=== PATIENT | male | born 1980 | race Caucasian/White ===

== ENCOUNTER 2016-10-16 08:05 | Day surgery (SDC) | payer OTHER ==
[2016-10-09 08:45] VITALS: BMI 32.1
[2016-10-16 08:24] VITALS: RESP 16; TEMP 97.8
[2016-10-16] MEDS: LACTATED RINGERS 1,000 ML IV ONE ×2 (08:32→09:14)
[2016-10-16] MEDS ORDERED: ONDANSETRON 4 MG/2 ML VIAL IVP ONE (08:40)
[2016-10-16] MEDS ORDERED: TRIAMCINOLONE ACETONIDE 40 MG/ML 1 ML VIAL ONE (09:18)
[2016-10-16] MEDS ORDERED: MIDAZOLAM 2 MG/2 ML VIAL ONE (09:18)
[2016-10-16] MEDS ORDERED: fentaNYL (PF) 50 MCG/ML 2 ML AMP ONE (09:18)
[2016-10-16] MEDS ORDERED: IV FLUID CONTINUATION 1,000 ML IV ONE (09:46)
--- NOTE | 2016-10-16 09:54 | P.PCN ---
Date of Procedure: 10/16/16 Anesthesia: MAC Surgeon: Jovani Shoemaker Pathology: none sent Condition: stable Disposition: PACU Description of Procedure: PREOPERATIVE DIAGNOSIS: Lumbar spondylosis without myelopathy and facet arthropathy POSTOPERATIVE DIAGNOSIS: Lumbar spondylosis without myelopathy and facet arthropathy PROCEDURES: Left Radiofrequency thermocoagulation, L3, L4, and L5 medial branch , with fluoroscopic guidance. ANESTHESIA: 1% lidocaine plain; Conscious sedation with versed/fentanyl EBL: Minimal PROCEDURE INDICATION: The patient with low back pain secondary to lumbar arthropathy who had more than 50% relief of pain with previous diagnostic lumbar medial branch block with bupivacaine. Patient presents for left RFA today ; no use of blood thinners. PROCEDURE DESCRIPTION / TECHNIQUE: The patient was seen and identified in the preoperative area. Risks, benefits, complications, and alternatives were discussed with the patient (including but not limited to incomplete pain relief , bleeding, infection, nerve damage, and allergies to medications), the patient agreed to proceed with the procedure and signed the consent after all questions were answered. Patient was taken to the OR and time out was completed to verify proper patient , position, laterality of pain, and allergies. Pt was placed in the prone position. IV was started. Vital signs remained stable throughout the procedure. A pillow was placed under the patients chest to decrease lordosis. The lumbosacral area was prepped and draped in the usual sterile fashion. Vital signs were closely monitored during the procedure. Conscious sedation was used during the procedure to decrease patients anxiety. Using AP and then oblique fluoroscopy, the eye of the John dog corresponding to the connection between the superior and transverse articular processes of left L4, L5 and top of the sacrum were identified, marked, and localized with 1% lidocaine. Subsequently, a 20 gauge, 100-mm radiofrequency cannula with a 10-mm active tip was advanced guided by fluoroscopy to each of the eyes of the John dog at left L3, L4, and L5 medial branches. Each site then underwent sensory testing at 50 Hz and 0 to 1 volt and motor testing at 2 Hz and 0 to 3 volt with local stimulation, but no radicular symptoms down the legs. Thereafter the left L3, L4, and L5 medial branch sites underwent radiofrequency thermocoagulation at 80 degrees Celsius for 90 seconds after injecting 0.5 ml of PF lidocaine 1%. After thermocoagulation, 1 ml of the block solution containing Kenalog 40 mg and 2 mL of preservative-free normal saline was injected at the right L3, L4, and L5 medial branch levels after negative aspiration of CSF and blood and with no paresthesias. Cannulas were retracted while injecting lidocaine 1% until the needles were removed. At the end of the procedure, the skin was cleansed and bandages were applied. COMPLICATIONS: No acute complications. DISPOSITION / PLANS: The patient was placed in a supine position and transferred to the recovery area in a stable condition for observation and was discharged from the recovery room after meeting discharge criteria. Home discharge instructions given to the patient by the staff. The patient was reexamined prior to discharge. The patient will schedule a follow up as needed. Patient was given a prescription for oxycodone 5 mg #240 without refills ( which will last him several months) and baclofen 10 mg #90 with five refills.
[2016-10-16 10:17] VITALS: BP 104/69; PULSE 59
--- NOTE | 2016-10-16 10:53 | FL ---
EXAMINATION TYPE: FL guided pain mgmt statistic DATE OF EXAM: 10/16/2016 9:45 AM COMPARISON: NONE HISTORY: Back pain Fluoroscopy support supplied to the referring clinician. See dictated report from anesthesia, 6 seco nds fluoroscopy time, 3 intraoperative C-arm images document the procedure
[2016-10-16] MEDS ORDERED: LACTATED RINGERS 1,000 ML IV SCH (12:15)
== END 2016-10-16 10:26 | disposition home or self-care (01) ==
LOC: ORPAIN 08:05
PROVIDERS: ATTEND Anesthesiology
DX: M47.816 Spondylosis without myelopathy or radiculopathy, lumbar region (principal); M46.96 Unspecified inflammatory spondylopathy, lumbar region; M79.1 Myalgia; E03.9 Hypothyroidism, unspecified; Z79.890 Hormone replacement therapy; Z79.891 Long term (current) use of opiate analgesic; Z79.899 Other long term (current) drug therapy; Z88.6 Allergy status to analgesic agent; Z88.8 Allergy status to other drugs, medicaments and biological substances
CPT/HCPCS: 64635; 64636 ×2; J2250; J3301; J2405; J3010

== ENCOUNTER 2016-10-20 14:16 | Emergency (ER) | payer OTHER ==
[2016-10-20 14:34] VITALS: BP 139/82; PULSE 76; RESP 20; TEMP 98
--- NOTE | 2016-10-20 15:34 | ED ---
Lower Extremity Injury HPI - General Chief Complaint: Extremity Injury, Lower Stated Complaint: left knee injury Time Seen by Provider: 10/20/16 15:24 Source: family, RN notes reviewed Mode of arrival: ambulatory Limitations: no limitations - History of Present Illness Initial Comments: 36-year-old male presents emergency Department chief complaint of left knee pain. Patient states that he with that. As he admitted to move and his knee went out and he fell to the ground. Patient states he now feels like a catching in his knee. Patient states that if he can move the knee since he goes to bear weight he has increased pain. Patient states that he hasn't had any other injuries with this. Patient states he has no numbness or tingling. Patient states she's been using crutches to get around which have been helping. Patient states he tried again to his family care doctor but they were unable to see him so he came here for orthopedic referral.Patient denies any recent fever, chills, shortness of breath, chest pain, back pain, abdominal pain, nausea vomiting, numbness or tingling, dysuria or hematuria, constipation or diarrhea, headaches or visual changes, or any other current symptoms. - Related Data Home Medications Medication Instructions Recorded Confirmed Levothyroxine Sodium [Synthroid] 50 mcg PO QAM 03/30/14 10/16/16 Baclofen [Lioresal] 10 mg PO TID 10/15/15 10/16/16 Testosterone Cypionate 100 mg INJ Q7D 02/21/16 10/16/16 [Depo-Testosterone] oxyCODONE HCL [Oxyir] 10 mg PO Q6H PRN 10/16/16 10/16/16 Allergies Allergy/AdvReac Type Severity Reaction Status Date / Time duloxetine HCl AdvReac Severe severe Verified 10/20/16 14:34 [From Cymbalta] headache gabapentin [From Neurontin] AdvReac Rash/Hives Verified 10/20/16 14:34 Review of Systems ROS Statement: Those systems with pertinent positive or pertinent negative responses have been documented in the HPI. ROS Other: All systems not noted in ROS Statement are negative. Past Medical History Past Medical History: GERD/Reflux, Thyroid Disorder Additional Past Medical History / Comment(s): KIDNEY STONE,CHRONIC BACK PAIN History of Any Multi-Drug Resistant Organisms: None Reported Past Surgical History: Appendectomy, Cholecystectomy Additional Past Surgical History / Comment(s): PAIN PROCEDURES AT [facility] Past Anesthesia/Blood Transfusion Reactions: No Reported Reaction Additional Past Anesthesia/Blood Transfusion Reaction / Comment(s): STATES "NOVOCAINE DOESN'T WORK ON ME" Past Psychological History: No Psychological Hx Reported Smoking Status: Never smoker Past Alcohol Use History: None Reported Past Drug Use History: None Reported - Past Family History Mother Family Medical History: No Reported History Father Additional Family Medical History / Comment(s): SMOKER. General Exam - General Exam Comments Initial Comments: General: The patient is awake and alert, in no distress, and does not appear acutely ill. Neck: The neck is supple, there is no tenderness. Cardiovascular: There is a regular rate and rhythm. No murmur, rub or gallop is appreciated. Respiratory: Lungs are clear to auscultation, respirations are non-labored, breath sounds are equal. No wheezes, stridor, rales, or rhonchi. Musculoskeletal: Sensation intact with 2+ pulses of the left lower extremity. Full range of motion of left hip left knee and left ankle. Patient has no pain with special testing. There is no pain to palpation of the knee itself. Patient is unable to bear weight on that leg due to pain however. Neurological: CN II-XII intact, There are no obvious motor or sensory deficits. Coordination appears grossly intact. Speech is normal. Skin: Skin is warm and dry and no rashes or lesions are noted. Psychiatric: Normal mood and affect. Limitations: no limitations Course Vital Signs 10/20/16 14:32 Temperature 98.0 F Pulse Rate 76 Respiratory 20 Rate Blood Pressure 139/82 O2 Sat by Pulse 98 Oximetry Medical Decision Making - Medical Decision Making 28-year-old male presents emergency 5 chief complaint of left knee pain. At this time with the patient's history and description of the pain. Possible meniscus-type injury. We did do an x-ray that does not show any acute processes. At this time we didn't hit him in a knee immobilizer. We discussed follow-up with orthopedic and he is given information. We discussed return parameters. We discussed all the patient's questions. He stated he understood and all discussions have been answered. He will be discharged home. - Radiology Data Radiology results: report reviewed, image reviewed Disposition Clinical Impression: Left knee sprain Disposition: HOME SELF-CARE Condition: Stable Instructions: Knee Sprain (ED) Additional Instructions: Please use medication as discussed. Please follow up with family doctor if symptoms have not improved over the next two days. Please return to the emergency room if your symptoms increase or worsen or for any other concerns. Referrals: Magan Mai MD [Primary Care Provider] - 1-2 days Time of Disposition: 15:52
--- NOTE | 2016-10-20 15:48 | XR ---
EXAMINATION TYPE: XR knee complete LT DATE OF EXAM: 10/20/2016 3:37 PM CLINICAL HISTORY: pain TECHNIQUE: Three views of the left knee are obtained. COMPARISON: None. FINDINGS: There is no acute fracture/dislocation. The tri-compartment joint spaces appear within no rmal limits. The overlying soft tissue appears unremarkable. IMPRESSION: There is no acute fracture or dislocation ICD 10 NO FRACTURE, INITIAL EVALUATION
== END 2016-10-20 16:30 | disposition home or self-care (01) ==
LOC: EC 14:16
DX: S83.92XA Sprain of unspecified site of left knee, initial encounter (principal); W19.XXXA Unspecified fall, initial encounter; Z79.899 Other long term (current) drug therapy; E07.9 Disorder of thyroid, unspecified; Z88.8 Allergy status to other drugs, medicaments and biological substances; G89.29 Other chronic pain
CPT/HCPCS: 29505; 99283; 73562; L1830

== ENCOUNTER 2016-11-10 16:08 | Day surgery (SDC) | payer OTHER ==
[2016-11-06 13:54] VITALS: BMI 32.8
[~2016-11-10 16:08] MED LIST: DEXAMETHASONE SOD PHOSPHATE 10 MG/ML 1 ML VIAL IV ONE; LACTATED RINGERS 1,000 ML IV SCH; MIDAZOLAM 2 MG/2 ML VIAL IV PRN; ONDANSETRON 4 MG/2 ML VIAL IVP ONE; Pre Op ABX Message 1 EACH MISC MISCELLANE ONE; SCOPOLAMINE 1.5MG/72HR PATCH TRANSDERM ONE
[2016-11-10] MEDS ORDERED: LIDOCAINE 1% 20 ML VIAL (10MG/ML) FOR IV START SQ ONE (16:20)
[2016-11-10 16:25] VITALS: TEMP 97.5
[2016-11-10] MEDS ORDERED: fentaNYL (PF) 50 MCG/ML 2 ML AMP IV PRN (16:40)
[2016-11-10] MEDS ORDERED: fentaNYL (PF) 50 MCG/ML 2 ML AMP IV ONE ×2 (17:15)
[2016-11-10] MEDS ORDERED: BUPIVACAINE (PF) 0.5% 30 ML VIAL SQ ONE (18:10)
[2016-11-10] MEDS ORDERED: MIDAZOLAM 2 MG/2 ML VIAL ONE (18:11)
[2016-11-10] MEDS ORDERED: PROPOFOL 10 MG/ML 20 ML VIAL IV ONE (18:11)
[2016-11-10] MEDS ORDERED: LIDOCAINE 1% INJ 10MG/ML (20 ML MDV) ONE (18:11)
[2016-11-10] MEDS ORDERED: fentaNYL (PF) 50 MCG/ML 2 ML AMP ONE (18:11)
[2016-11-10] MEDS ORDERED: SUCCINYLCHOLINE CHLORIDE 100 MG/5 ML SYR IV ONE (18:11)
[2016-11-10] MEDS ORDERED: SODIUM CHLORIDE 0.9% 100 ML with ceFAZolin 1,000 MG IV ONE ×2 (18:16)
[2016-11-10] MEDS ORDERED: LACTATED RINGERS 1,000 ML IV ONE (18:32)
--- NOTE | 2016-11-10 18:52 | P.OP ---
Date of Procedure: 11/10/16 Preoperative Diagnosis: Torn medial meniscus left knee Postoperative Diagnosis: Torn medial meniscus left knee Synovitis of the medial femoral, lateral femoral, and patellofemoral compartments. Procedure(s) Performed: Arthroscopy of the left knee with partial medial meniscectomy and partial synovectomy of the medial femoral, lateral femoral, and patellofemoral compartments. Anesthesia: GETA Surgeon: Amarjit Tucker Estimated Blood Loss (ml): 5 Pathology: none sent Condition: stable Disposition: PACU Indications for Procedure: This is a 36-year-old gentleman that presented to my office with pain in his left knee. He has an MRI which demonstrates a torn medial meniscus of his left knee, after failure of conservative treatment, wishes to proceed with left knee arthroscopy with a partial medial meniscectomy. Surgical risks and benefits were discussed at length with the patient, and informed consent was obtained. Operative Findings: The operative findings are consistent with a torn medial meniscus, as well as synovitis of the medial femoral, lateral femoral, and patellofemoral compartments. Description of Procedure: Patient was seen and evaluated in the preoperative area, the operative site was marked with a skin marker. The patient was then brought to the operating room and given 2gm Ancef intravenously. A general anesthetic was administered by the anesthesia department. Tourniquet was placed on the left upper thigh and the left lower extremity was then prepped and draped in usual sterile fashion. A universal timeout was then performed confirming the patient's name, surgical site, ALLERGIES, and consent. The limb was then exsanguinated and tourniquet insufflated to 250 mmHg. Standard inferior medial and inferior lateral portals were established and the knee. The trochar was inserted in the inferolateral portal. Examination began at the patellofemoral joint. There is noted to be no evidence of chondral malacia in the patellofemoral compartment and a moderate amount of synovitis. Next the medial compartment was visualized. No evidence of a medial meniscus tear with a large unstable flap. There was no evidence of chondral malacia in the mediofemoral compartment. There was a moderate amount of synovitis. The notch area was then visualized and ACL PCL were intact. Lateral compartment was then visualized and there was no tear of the of lateral meniscus. There was no evidence of chondral malacia changes. There was a mild amount of synovitis. Next, using an arthroscopic shaver and a biter, partial medial meniscectomy was performed stable margins. A partial synovectomy is performed the medial femoral , lateral femoral, patellofemoral compartments. Knee was then copiously irrigated, instruments removed, incisions were closed with 4-0 nylon. 30 mL of quarter percent plain Marcaine were injected sterilely into the surgical area. A sterile dressing was then applied, and the tourniquet was released. Patient was then transferred to recovery room in stable condition.
[2016-11-10] MEDS: HYDROmorphone 1 MG/ML 1 ML SYRINGE IVP PRN ×4 (19:00→19:30)
[2016-11-10 19:14] VITALS: RESP 16
[2016-11-10 20:05] VITALS: PULSE 80
[2016-11-10] MEDS ORDERED: IBUPROFEN 200 MG TAB PO ONE (20:14)
[2016-11-10 20:25] VITALS: BP 132/82
--- NOTE | 2016-11-19 17:28 | OP ---
DATE OF SERVICE: 11/10/2016 ADDENDUM TO OPERATIVE NOTE SURGEON: DARRYL LAU DO ADDENDUM: There was a report specialist error in the description of the procedure. The part of the report specialist that said there said there was no evidence of a medial meniscus tear should have been dictated and transcribed as there was evidence of a medial meniscal tear with a large unstable flap.
== END 2016-11-10 20:30 | disposition home or self-care (01) ==
LOC: OR 16:08
PROVIDERS: ATTEND Orthopaedic Surgery
DX: S83.242A Other tear of medial meniscus, current injury, left knee, initial encounter (principal); X58.XXXA Exposure to other specified factors, initial encounter; M65.862 Other synovitis and tenosynovitis, left lower leg; E07.9 Disorder of thyroid, unspecified; Z79.1 Long term (current) use of non-steroidal anti-inflammatories (NSAID); Z79.891 Long term (current) use of opiate analgesic; Z79.899 Other long term (current) drug therapy; Z88.8 Allergy status to other drugs, medicaments and biological substances
CPT/HCPCS: 29881; 29876; J2250; J1100; J2405; J2001; J3010; J1170; J0690; J0330; J2704

== ENCOUNTER 2017-03-19 06:40 | Day surgery (SDC) | payer OTHER ==
[2017-03-18 09:51] VITALS: BMI 32.1
[~2017-03-19 06:40] MED LIST changes: +HYDROmorphone 1 MG/ML 1 ML SYRINGE IVP PRN; -Pre Op ABX Message 1 EACH MISC MISCELLANE ONE; -SCOPOLAMINE 1.5MG/72HR PATCH TRANSDERM ONE
[2017-03-19 06:59] VITALS: RESP 18; TEMP 97.6
[2017-03-19] MEDS ORDERED: LIDOCAINE 1% 20 ML VIAL (10MG/ML) FOR IV START SQ ONE (07:01)
[2017-03-19] MEDS ORDERED: ONDANSETRON 4 MG/2 ML VIAL IVP ONE (07:15)
[2017-03-19] MEDS ORDERED: MIDAZOLAM 2 MG/2 ML VIAL ONE (07:55)
[2017-03-19] MEDS ORDERED: fentaNYL (PF) 50 MCG/ML 2 ML AMP ONE (07:55)
[2017-03-19] MEDS ORDERED: BUPIVACAINE (PF) 0.5% 30 ML VIAL ONE (07:55)
[2017-03-19] MEDS ORDERED: DEXAMETHASONE SOD PHOS (MDV) 100 MG/10 ML VIAL ONE (07:55)
[2017-03-19] MEDS ORDERED: IV FLUID CONTINUATION 1,000 ML IV ONE (08:38)
--- NOTE | 2017-03-19 08:38 | P.PCN ---
Date of Procedure: 03/19/17 Preoperative Diagnosis: Postoperative Diagnosis: Procedure(s) Performed: PREOPERATIVE DIAGNOSIS: 1-Lumbar Spondylosis with Facet Arthropathy without myelopathy. 2- myofascial pain syndrome thoracic area POSTOPERATIVE DIAGNOSIS: 1- Lumbar Spondylosis with Facet Arthropathy without myelopathy. 2-colton fascial pain syndrome thoracic area PROCEDURES : 1-Right Radiofrequency thermocoagulation, L3-L4, L4-L5, and L5-S1 medial branch, with fluoroscopic guidance. 2-opponents injection thoracic paravertebral muscles total of 5 trigger point injected , 2 on the right side ,and 3 on the left side thoracic paravertebral muscles ANESTHESIA: IV sedation with versed 2 mg and fentaneyl 150 mcg and local infiltration with lidocaine 1% 6 ml EBL: Minimal PROCEDURE INDICATION: The patient with low back pain secondary to lumbar facet arthropathy who had more than 50% relief of her pain with previous diagnostic lumbar medial branch block with bupivacaine. PROCEDURE DESCRIPTION / TECHNIQUE: The patient was seen and identified in the preoperative area. Risks, benefits, complications, including but not limited to risk of infection ,bleeding , allergic reactions to the medications and no complete pain releife , and alternatives were discussed with the patient, the patient agreed to proceed with the procedure and signed the consent. IV was started. Vital signs remained stable throughout the procedure. Patient was taken to the OR and time out was completed. The patient was placed in the prone position on the procedure table. The lumber area was prepped and draped in the usual sterile fashion. . Vital signs were closely monitored during the procedure .IV sedation was used during the procedure to decrease patients anxiety. Using AP and then oblique fluoroscopy, the ``eye of the John dog corresponding to the connection between the superior and transverse articular processes of right L3, L4, and L5 were identified, marked, and localized with 1 % lidocaine. Subsequently, a 18 -yw (VENOM ) radiofrequency cannula with a 10-mm active tip was advanced guided by fluoroscopy to each of the `` eyes of the John dog at right L3, L4, and L5. Each site then underwent sensory testing at 50 Hz and 0 to 1 volt and motor testing at 2.5 Hz and 0 to 3 volt with local stimulation, but no radicular symptoms down the legs. Thereafter the right L3-4, L4-5, and L5-S1 sites underwent radiofrequency thermocoagulation at 80 degrees celsius for 90 seconds after injecting 0.5 ml of PF lidocaine 1%. then After the thermocoagulation done , 1 ml of the block solution containing Kenalog 40 mg and 3 ml of marain 0.5% was injected at the right L3-4 , L4-5 , and L5-S1, levels after negative aspiration of CSF and blood and with no paresthesias. Cannulas were retracted while injecting lidocaine 1% until the needle is out. then we the trigger point injections by using 25-gauge needle, the trigger point that is marked in the preoperative holding area injected with Marcaine 0.5 % 2 mL injected at each trigger points ,, injections done after negative aspiration, no paresthesias during the injection, a total of 5 trigger points injected 2 on the right side thoracic paravertebral muscles and 3 on the left side thoracic paravertebral muscles At the end of the procedure, the skin was cleansed and bandages were applied. COMPLICATIONS: No acute complications. DISPOSITION / PLANS: The patient was placed in a supine position and transferred to the recovery area in a stable condition for observation and was discharged from the recovery room after meeting discharge criteria. Home discharge instructions given to the patient by the staff. The patient was reexamined prior to discharge. The patient will schedule a follow up in the clinic in 2-4 weeks. Total prescription refill for oxycodone 5 mg 2 tablet by mouth every 6 hours, and also discontinue the baclofen because patient had a muscle spasm and he feels that the baclofen is not helping any started him on Zanaflex 4 mg every 8 hours and for muscle spasm Implants: Indications for Procedure: Operative Findings: Description of Procedure:
--- NOTE | 2017-03-19 08:42 | FL ---
FLUOROSCOPY 13 seconds of fluoroscopy time were utilized during Pain Injection. 3 images document the procedure.
[2017-03-19 08:55] VITALS: BP 104/69; PULSE 60
== END 2017-03-19 09:27 | disposition home or self-care (01) ==
LOC: ORPAIN 06:40
PROVIDERS: ATTEND Specialist
DX: M47.816 Spondylosis without myelopathy or radiculopathy, lumbar region (principal); M46.96 Unspecified inflammatory spondylopathy, lumbar region; M79.1 Myalgia; Z79.891 Long term (current) use of opiate analgesic; Z79.899 Other long term (current) drug therapy; Z91.09 Other allergy status, other than to drugs and biological substances
CPT/HCPCS: 64635; 64636; 20553; 99152; 99153; J2250; J2405; J3010; J1100

== ENCOUNTER 2017-04-30 10:58 | Day surgery (SDC) | payer OTHER ==
[2017-04-28 08:28] VITALS: BMI 32.8
[2017-04-30 11:13] VITALS: RESP 16; TEMP 98.1
[2017-04-30] MEDS ORDERED: LACTATED RINGERS 1,000 ML IV ONE (11:17)
[2017-04-30] MEDS ORDERED: LIDOCAINE 1% 20 ML VIAL (10MG/ML) FOR IV START INTRADERMA ONE (11:17)
[2017-04-30] MEDS ORDERED: LACTATED RINGERS 1,000 ML IV SCH (11:30)
--- NOTE | 2017-04-30 12:04 | P.PCN ---
Date of Procedure: 04/30/17 Preoperative Diagnosis: Postoperative Diagnosis: Procedure(s) Performed: Implants: Surgeon: Jovani Shoemaker Pathology: none sent Condition: stable Disposition: PACU Indications for Procedure: Operative Findings: Description of Procedure: PREOPERATIVE DIAGNOSIS: Lumbar spondylosis without myelopathy and facet arthropathy POSTOPERATIVE DIAGNOSIS: Lumbar spondylosis without myelopathy and facet arthropathy PROCEDURES: Left Radiofrequency thermocoagulation, L3, L4, and L5 medial branch , with fluoroscopic guidance. ANESTHESIA: 1% lidocaine plain; Conscious sedation with versed/fentanyl EBL: Minimal PROCEDURE INDICATION: The patient with low back pain secondary to lumbar arthropathy who had more than 50% relief of pain with previous diagnostic lumbar medial branch block with bupivacaine. Patient presents for left lumbar RFA today; no use of blood thinners. PROCEDURE DESCRIPTION / TECHNIQUE: The patient was seen and identified in the preoperative area. Risks, benefits, complications, and alternatives were discussed with the patient (including but not limited to incomplete pain relief , bleeding, infection, nerve damage, and allergies to medications), the patient agreed to proceed with the procedure and signed the consent after all questions were answered. Patient was taken to the OR and time out was completed to verify proper patient , position, laterality of pain, and allergies. Pt was placed in the prone position. IV was started. Vital signs remained stable throughout the procedure. A pillow was placed under the patients chest to decrease lordosis. The lumbosacral area was prepped and draped in the usual sterile fashion. Vital signs were closely monitored during the procedure. Conscious sedation was used during the procedure to decrease patients anxiety. Using AP and then oblique fluoroscopy, the eye of the John dog corresponding to the connection between the superior and transverse articular processes of left L4, L5 and top of the sacrum were identified, marked, and localized with 1% lidocaine. Subsequently, a 18 gauge, 100-mm radiofrequency cannula with a 10-mm active tip was advanced guided by fluoroscopy to each of the eyes of the John dog at left L3, L4, and L5 medial branches. Each site then underwent sensory testing at 50 Hz and 0 to 1 volt and motor testing at 2 Hz and 0 to 3 volt with local stimulation, but no radicular symptoms down the legs. Thereafter the left L3, L4, and L5 medial branch sites underwent radiofrequency thermocoagulation at 80 degrees Celsius for 90 seconds after injecting 0.5 ml of PF lidocaine 1%. After thermocoagulation, 1 ml of the block solution containing Kenalog 40 mg and 2 mL of preservative-free normal saline was injected at the right L3, L4, and L5 medial branch levels after negative aspiration of CSF and blood and with no paresthesias. Cannulas were retracted while injecting lidocaine 1% until the needles were removed. At the end of the procedure, the skin was cleansed and bandages were applied. COMPLICATIONS: No acute complications. DISPOSITION / PLANS: The patient was placed in a supine position and transferred to the recovery area in a stable condition for observation and was discharged from the recovery room after meeting discharge criteria. Home discharge instructions given to the patient by the staff. The patient was reexamined prior to discharge and there were no issues. The patient will schedule a follow up in clinic. Patient was given a prescription for baclofen 10 mg #90 with one refill. MRI lumbar spine ordered.
[2017-04-30] MEDS ORDERED: KETOROLAC 30 MG/ML 1 ML VIAL IVP STA (12:11)
[2017-04-30 12:20] VITALS: PULSE 67
[2017-04-30] MEDS ORDERED: IV FLUID CONTINUATION 1,000 ML IV ONE ×2 (12:20)
[2017-04-30] MEDS ORDERED: KETOROLAC 30 MG/ML 1 ML VIAL IVP ONE (12:25)
[2017-04-30 12:36] VITALS: BP 110/68
--- NOTE | 2017-04-30 12:43 | FL ---
EXAMINATION TYPE: FL guided pain mgmt statistic DATE OF EXAM: 04/30/2017 HISTORY: Flouroscopy time 6 seconds of fluoroscopy provided. IMPRESSION: 1. Fluoroscopy time.
== END 2017-04-30 12:49 | disposition home or self-care (01) ==
LOC: ORPAIN 10:58
PROVIDERS: ATTEND Anesthesiology
DX: G89.29 Other chronic pain (principal); M47.816 Spondylosis without myelopathy or radiculopathy, lumbar region; M46.96 Unspecified inflammatory spondylopathy, lumbar region; Z88.8 Allergy status to other drugs, medicaments and biological substances; Z79.891 Long term (current) use of opiate analgesic; Z79.1 Long term (current) use of non-steroidal anti-inflammatories (NSAID); Z79.899 Other long term (current) drug therapy
CPT/HCPCS: 64635; 64636 ×2; 99152; J2250; J3301; J3010; J1885; 99153

== ENCOUNTER → 2017-05-26 | Outpatient (CLI) | payer OTHER | END | disposition home or self-care (01) | LOC: PNWHC3 13:42 | PROVIDERS: ATTEND Anesthesiology | DX: Z53.9 Procedure and treatment not carried out, unspecified reason (principal) ==

== ENCOUNTER → 2017-06-10 | Outpatient (CLI) | payer OTHER ==
--- NOTE | 2017-06-10 14:22 | P.PN ---
Progress Note - Text This is a 37-year-old male with history of axial lower back pain and getting worse lately. The patient did not get the usually good response after the last lumbar medial branch RFA. He uses 1 of oxycodone 5 mg a day but he cannot use them at night because they cause him insomnia. He takes a muscle relaxant at night but lately this is a have not been helping him and he tried baclofen and Zanaflex. Also he tried the Neurontin and Cymbalta before which gave him severe headache and he cannot use them anymore as he states. Today I'll give her prescription for Robaxin 750 mg at bedtime. continue with his oxycodone as needed for his pain. Because of this exacerbation of his lower back pain I will order an MRI on the lumbar spine with and without contrast. We will see the patient next month for reevaluation.
== END ==
LOC: PNWHC3 13:17
PROVIDERS: ATTEND Anesthesiology
DX: M54.5 Low back pain (principal); Z79.899 Other long term (current) drug therapy
CPT/HCPCS: 99211

== ENCOUNTER → 2017-07-27 | Outpatient (CLI) | payer OTHER ==
[2017-07-27 14:17] VITALS: BP 131/88; PULSE 68; RESP 18
--- NOTE | 2017-07-28 13:11 | P.PN ---
Progress Note - Text Progress Note Date: 07/27/17 Patient returns for followup for chronic back pain with radiation to hips, without significant leg pain. Patient previously underwent bilateral lumbar RFA which did not give him as much relief as usual. Patient continues on oxycodone and tizanidine medications for pain with good relief. Patient denies adverse drug effects from medications. Today, pt denies new-onset weakness, bowel/bladder incontinence, or any other signs or symptoms of cauda equina syndrome. There are no signs of acute intoxication, and no indications of medication diversion or overuse. In addition to above, 13-point review of systems is also negative for chest pain , shortness of breath, changes in vision, changes in hearing, new onset weakness , abdominal pain, diarrhea, extreme fatigue, malaise, fever, skin changes, homicidal or suicidal ideation, or bowel or bladder incontinence. Vital Signs: Reviewed in EMR Gen: WDWN, AAOx3, NAD HEENT: NCAT, EOMI, hearing grossly normal Pulm: resp unlabored Abd: soft, NT, ND Neck: supple, trachea midline ROM in flexion lumbar spine: reduced ROM in extension lumbar spine: reduced Lumbar paravertebral tenderness: + Facet loading: + bilateral, L > R SI joint tenderness: + L > R Gonzalez's test: + Straight leg raise: neg Neuro: CN II-XII grossly intact, muscle strength lower extremities PRESERVED Imaging: Reviewed in EMR Assessment: 1. lumbar spondylosis 2. SIJ dysfunction 3. chronic pain syndrome Plan: 1. Explanation: Opioid and psychological risk scores were reviewed. Diagnoses , prognoses, and multiple treatment options including but not limited to physical therapy, interventional therapies, adjuvant medical therapies, narcotic medication therapies, and surgery were discussed with the patient and all questions were answered to the patient's satisfaction. 2. Opioid agreement: Patient has previously signed narcotic agreement, and was orally counseled to not overuse, abuse, divert, or cell medications, and to take them as prescribed by only 1 healthcare provider. The patient was also counseled to store opioid medications in a safe and preferably locked location. Patient was also counseled against driving or operating heavy equipment while using narcotic medications and also to not use alcohol or any illicit or recreational drugs. The patient verbalized understanding that lack of compliance with any of the above and likely result in failure to renew narcotic prescriptions, possible discharge from the clinic, and possible legal ramifications thereafter if indicated. 3. Counseling: The patient was counseled extensively on BODY MASS INDEX, EXERCISE. Specifically, the patient was instructed regarding the importance of weight control, and exercise in the context of both chronic pain and overall health. 4. Procedures: none for now, patient being worked up for immunologic conditions 5. Consultations: referral to Dr. Kelly soler: possible spine surgery 6. Investigations: None 7. Medications: oxycodone 5 mg #120 with one refill, tizanidine 2 mg #180 (2 mg qAM, 2 mg afternoon, 8 mg qhs for sleep) with one refill 8. Disposition: f/u for re-eval in 8 weeks
== END ==
LOC: PNWHC3 13:54
PROVIDERS: ATTEND Anesthesiology
DX: M47.816 Spondylosis without myelopathy or radiculopathy, lumbar region (principal); M53.3 Sacrococcygeal disorders, not elsewhere classified; Z79.891 Long term (current) use of opiate analgesic; Z79.899 Other long term (current) drug therapy
CPT/HCPCS: 99211

== ENCOUNTER 2017-10-19 14:12 | Emergency (ER) | payer OTHER ==
[2017-10-19 14:33] VITALS: RESP 18
[2017-10-19] MEDS ORDERED: KETOROLAC 30 MG/ML 1 ML VIAL IVP STA (15:50)
[2017-10-19] MEDS ORDERED: SODIUM CHLORIDE 0.9% 1,000 ML IV STA (15:50)
[2017-10-19] MEDS ORDERED: ONDANSETRON 4 MG/2 ML VIAL IVP STA (15:50)
[2017-10-19 16:04] LABS: Appearance,Urine Clear (Clear); Bilirubin,Urine Negative (Negative); Blood,Urine Negative (Negative); Color,Urine Yellow; Glucose,Urine (UA) Negative (Negative); Ketones,Urine Negative (Negative); Leukocyte Esterase,Urine Negative (Negative); Nitrite,Urine Negative (Negative); Protein,Urine Negative (Negative); Specific Gravity,Urine 1.012 (1.001-1.035); Urobilinogen,Urine <2.0 mg/dL (<2.0)
[2017-10-19 16:05] LABS: Basophils # (A) 0.1 k/uL (0-0.2); Basophils % (A) 1 %; Eosinophils # (A) 0.3 k/uL (0-0.7); Eosinophils % (A) 4 %; HCT 51.4 % (39.0-53.0); HGB 16.8 gm/dL (13.0-17.5); Lymphocytes # (A) 1.8 k/uL (1.0-4.8); Lymphocytes % (A) 24 %; MCH 29.6 pg (25.0-35.0); MCHC 32.7 g/dL (31.0-37.0); MCV 90.6 fL (80.0-100.0); Mean Platelet Volume 9.7; Monocytes # (A) 0.6 k/uL (0-1.0); Monocytes % (A) 7 %; Neutrophils # (A) 4.7 k/uL (1.3-7.7); Neutrophils % (A) 62 %; Platelet Count 206 k/uL (150-450); RBC 5.68 m/uL (4.30-5.90); RDW 14.7 % (11.5-15.5); WBC 7.6 k/uL (3.8-10.6)
--- NOTE | 2017-10-19 16:09 | ED ---
General Adult HPI - General Chief complaint: Abdominal Pain Stated complaint: Right side pain Time Seen by Provider: 10/19/17 14:15 Source: patient, RN notes reviewed Mode of arrival: ambulatory Limitations: no limitations - History of Present Illness Initial comments: This is a 37-year-old male who presents emergency Department stating that he's had multiple kidney stones in the past. Patient states his pain started in the last couple of days. Patient states it feels like a typical kidney stone. Patient states the pain radiates in the right flank and radiates down to his testicles. Patient denies any hematuria. Patient states he started he had an appendectomy and a cholecystectomy. Patient denies any fever chills. Patient denies any dysuria. Patient denies any CVA tenderness - Related Data Home Medications Medication Instructions Recorded Confirmed Levothyroxine Sodium [Synthroid] 50 mcg PO DAILY 03/30/14 10/19/17 Testosterone Cypionate 200 mg INJ TU 02/21/16 10/19/17 [Depo-Testosterone] oxyCODONE HCL 10 mg PO DAILY PRN 10/19/17 10/19/17 Previous Rx's Medication Instructions Recorded ALPRAZolam [ALPRAZolam XR] 0.5 mg PO DAILY PRN #30 tab 10/19/17 tiZANidine [Zanaflex] 2 mg PO Q6HR PRN #180 tab 10/19/17 Allergies Allergy/AdvReac Type Severity Reaction Status Date / Time duloxetine HCl AdvReac Severe severe Verified 10/19/17 16:02 [From Cymbalta] headache gabapentin [From Neurontin] AdvReac Rash/Hives Verified 10/19/17 16:02 Review of Systems ROS Statement: Those systems with pertinent positive or pertinent negative responses have been documented in the HPI. ROS Other: All systems not noted in ROS Statement are negative. Past Medical History Past Medical History: GERD/Reflux, Thyroid Disorder Additional Past Medical History / Comment(s): KIDNEY STONE,CHRONIC BACK PAIN History of Any Multi-Drug Resistant Organisms: None Reported Past Surgical History: Appendectomy, Cholecystectomy Additional Past Surgical History / Comment(s): PAIN PROCEDURES AT [facility] Past Anesthesia/Blood Transfusion Reactions: Previous Problems w/ Anesthesia Additional Past Anesthesia/Blood Transfusion Reaction / Comment(s): STATES "NOVOCAINE DOESN'T WORK ON ME" "TAKES MORE THAN NORMAL TO PUT ME OUT" Past Psychological History: No Psychological Hx Reported Smoking Status: Never smoker Past Alcohol Use History: None Reported Past Drug Use History: None Reported - Past Family History Mother Family Medical History: No Reported History Father Additional Family Medical History / Comment(s): SMOKER. General Exam - General Exam Comments Initial Comments: GENERAL: Patient is well-developed and well-nourished. Patient is nontoxic and well- hydrated and is in mild distress. ENT: Neck is soft and supple. No significant lymphadenopathy is noted. Oropharynx is clear. Moist mucous membranes. Neck has full range of motion without eliciting any pain. EYES: The sclera were anicteric and conjunctiva were pink and moist. Extraocular movements were intact and pupils were equal round and reactive to light. Eyelids were unremarkable. PULMONARY: Unlabored respirations. Good breath sounds bilaterally. No audible rales rhonchi or wheezing was noted. CARDIOVASCULAR: There is a regular rate and rhythm without any murmurs gallops or rubs. ABDOMEN: Soft and nontender with normal bowel sounds. No palpable organomegaly was noted. There is no palpable pulsatile mass. SKIN: Skin is clear with no lesions or rashes and otherwise unremarkable. NEUROLOGIC: Patient is alert and oriented x3. Cranial nerves II through XII are grossly intact. Motor and sensory are also intact. Normal speech, volume and content. Symmetrical smile. MUSCULOSKELETAL: Normal extremities with adequate strength and full range of motion. No lower extremity swelling or edema. No calf tenderness. LYMPHATICS: No significant lymphadenopathy is noted PSYCHIATRIC: Normal psychiatric evaluation. Normal interpersonal interactions appears functionally intact in deals appropriately with others. No signs of depression. No signs of anxiety. Limitations: no limitations Course Vital Signs 10/19/17 10/19/17 10/19/17 14:31 15:50 17:08 Temperature 99.4 F 98.1 F 98.9 F Pulse Rate 70 76 70 Respiratory 18 18 18 Rate Blood Pressure 132/75 115/69 105/57 O2 Sat by Pulse 99 99 98 Oximetry Medical Decision Making - Medical Decision Making CT shows no acute abnormality. - Lab Data Result diagrams: 10/19/17 15:50 10/19/17 15:50 Lab Results 10/19/17 10/19/17 10/19/17 Range/Units 15:50 15:50 15:50 WBC 7.6 (3.8-10.6) k/uL RBC 5.68 (4.30-5.90) m/uL Hgb 16.8 (13.0-17.5) gm/dL Hct 51.4 (39.0-53.0) % MCV 90.6 (80.0-100.0) fL MCH 29.6 (25.0-35.0) pg MCHC 32.7 (31.0-37.0) g/dL RDW 14.7 (11.5-15.5) % Plt Count 206 (150-450) k/uL Neutrophils % 62 % Lymphocytes % 24 % Monocytes % 7 % Eosinophils % 4 % Basophils % 1 % Neutrophils # 4.7 (1.3-7.7) k/uL Lymphocytes # 1.8 (1.0-4.8) k/uL Monocytes # 0.6 (0-1.0) k/uL Eosinophils # 0.3 (0-0.7) k/uL Basophils # 0.1 (0-0.2) k/uL Sodium 143 (137-145) mmol/L Potassium 3.9 (3.5-5.1) mmol/L Chloride 102 (98-107) mmol/L Carbon Dioxide 27 (22-30) mmol/L Anion Gap 14 mmol/L BUN 10 (9-20) mg/dL Creatinine 1.00 (0.66-1.25) mg/dL Est GFR (MDRD) Af Amer >60 (>60 ml/min/1.73 sqM) Est GFR (MDRD) Non-Af >60 (>60 ml/min/1.73 sqM) Glucose 98 (74-99) mg/dL Calcium 9.6 (8.4-10.2) mg/dL Total Bilirubin 0.4 (0.2-1.3) mg/dL AST 22 (17-59) U/L ALT 31 (21-72) U/L Alkaline Phosphatase 63 (38-126) U/L Total Protein 7.2 (6.3-8.2) g/dL Albumin 4.4 (3.5-5.0) g/dL Amylase 50 (30-110) U/L Lipase 264 (23-300) U/L Urine Color Yellow Urine Appearance Clear (Clear) Urine pH 6.0 (5.0-8.0) Ur Specific [place] 1.012 (1.001-1.035) Urine Protein Negative (Negative) Urine Glucose (UA) Negative (Negative) Urine Ketones Negative (Negative) Urine Blood Negative (Negative) Urine Nitrite Negative (Negative) Urine Bilirubin Negative (Negative) Urine Urobilinogen <2.0 (<2.0) mg/dL Ur Leukocyte Esterase Negative (Negative) Urine Opiates Screen (NotDetected) Ur Oxycodone Screen (NotDetected) Urine Methadone Screen (NotDetected) Ur Propoxyphene Screen (NotDetected) Ur Barbiturates Screen (NotDetected) U Tricyclic Antidepress (NotDetected) Ur Phencyclidine Scrn (NotDetected) Ur Amphetamines Screen (NotDetected) U Methamphetamines Scrn (NotDetected) U Benzodiazepines Scrn (NotDetected) Urine Cocaine Screen (NotDetected) U Marijuana (THC) Screen (NotDetected) 10/19/17 Range/Units 15:50 WBC (3.8-10.6) k/uL RBC (4.30-5.90) m/uL Hgb (13.0-17.5) gm/dL Hct (39.0-53.0) % MCV (80.0-100.0) fL MCH (25.0-35.0) pg MCHC (31.0-37.0) g/dL RDW (11.5-15.5) % Plt Count (150-450) k/uL Neutrophils % % Lymphocytes % % Monocytes % % Eosinophils % % Basophils % % Neutrophils # (1.3-7.7) k/uL Lymphocytes # (1.0-4.8) k/uL Monocytes # (0-1.0) k/uL Eosinophils # (0-0.7) k/uL Basophils # (0-0.2) k/uL Sodium (137-145) mmol/L Potassium (3.5-5.1) mmol/L Chloride (98-107) mmol/L Carbon Dioxide (22-30) mmol/L Anion Gap mmol/L BUN (9-20) mg/dL Creatinine (0.66-1.25) mg/dL Est GFR (MDRD) Af Amer (>60 ml/min/1.73 sqM) Est GFR (MDRD) Non-Af (>60 ml/min/1.73 sqM) Glucose (74-99) mg/dL Calcium (8.4-10.2) mg/dL Total Bilirubin (0.2-1.3) mg/dL AST (17-59) U/L ALT (21-72) U/L Alkaline Phosphatase (38-126) U/L Total Protein (6.3-8.2) g/dL Albumin (3.5-5.0) g/dL Amylase (30-110) U/L Lipase (23-300) U/L Urine Color Urine Appearance (Clear) Urine pH (5.0-8.0) Ur Specific [place] (1.001-1.035) Urine Protein (Negative) Urine Glucose (UA) (Negative) Urine Ketones (Negative) Urine Blood (Negative) Urine Nitrite (Negative) Urine Bilirubin (Negative) Urine Urobilinogen (<2.0) mg/dL Ur Leukocyte Esterase (Negative) Urine Opiates Screen Not Detected (NotDetected) Ur Oxycodone Screen Not Detected (NotDetected) Urine Methadone Screen Not Detected (NotDetected) Ur Propoxyphene Screen Not Detected (NotDetected) Ur Barbiturates Screen Not Detected (NotDetected) U Tricyclic Antidepress Not Detected (NotDetected) Ur Phencyclidine Scrn Not Detected (NotDetected) Ur Amphetamines Screen Not Detected (NotDetected) U Methamphetamines Scrn Not Detected (NotDetected) U Benzodiazepines Scrn Detected H (NotDetected) Urine Cocaine Screen Not Detected (NotDetected) U Marijuana (THC) Screen Not Detected (NotDetected) Disposition Clinical Impression: Flank pain Disposition: HOME SELF-CARE Instructions: Abdominal Pain (ED) Referrals: Martita Bello III, MD [Primary Care Provider] - 1-2 days Time of Disposition: 17:16
[2017-10-19 16:14] LABS: ALT 31 U/L (21-72); AST 22 U/L (17-59); Albumin 4.4 g/dL (3.5-5.0); Alkaline Phosphatase 63 U/L (38-126); Amylase 50 U/L (30-110); Anion Gap 14 mmol/L; Blood Urea Nitrogen 10 mg/dL (9-20); Calcium 9.6 mg/dL (8.4-10.2); Carbon Dioxide 27 mmol/L (22-30); Chloride 102 mmol/L (98-107); Glucose 98 mg/dL (74-99); Lipase 264 U/L (23-300); Potassium 3.9 mmol/L (3.5-5.1); Sodium 143 mmol/L (137-145); Total Bilirubin 0.4 mg/dL (0.2-1.3); Total Protein 7.2 g/dL (6.3-8.2)
--- NOTE | 2017-10-19 16:34 | XR ---
Abdomen HISTORY: Pain Frontal view of the abdomen on 2 images correlated to prior exam 06/20/2014 Surgical clips present right upper quadrant. There may be a spinal curvature, patient appears rotated . Accentuation of heart size may be due to technique. There is no pneumoperitoneum, bowel obstruction , or visceromegaly. No pathologic calcification. IMPRESSION: Nonobstructive bowel gas pattern
[2017-10-19 16:58] LABS: Amphetamine Screen,Urine Not Detected (NotDetected); Barbiturate Screen,Urine Not Detected (NotDetected); Benzodiazepines Screen,Urine Detected (NotDetected); Cocaine Screen,Urine Not Detected (NotDetected); Methadone Screen, Urine Not Detected (NotDetected); Opiate Screen,Urine Not Detected (NotDetected); Oxycodone Screen, Urine Not Detected (NotDetected); Phencyclidine Screen,Urine Not Detected (NotDetected); Tricyclic Antidepressant,Urine Not Detected (NotDetected); Urn Cannabinoid Scrn Not Detected (NotDetected)
[2017-10-19 17:09] VITALS: BP 105/57; PULSE 70; TEMP 98.9
--- NOTE | 2017-10-19 17:12 | CT ---
EXAMINATION TYPE: CT abdomen pelvis wo con DATE OF EXAM: 10/19/2017 COMPARISON: 08/10/2013 HISTORY: Right sided pain into the groin with urination changes. CT DLP: 1255 mGycm Automated exposure control for dose reduction was used. TECHNIQUE: Helical acquisition of images was performed from the lung bases through the pelvis. FINDINGS: LUNG BASES: Minimal bibasilar subsegmental dependent atelectasis is noted. LIVER/GB: Gallbladder surgically absent. Migrated surgical clips noted adjacent to the duodenum. Hep atic parenchyma is diffusely hypoattenuated, most commonly seen in hepatic steatosis. This finding li mits evaluation for hepatic masses. No gross evidence of hepatic mass is seen. No intrahepatic biliar y ductal dilatation. PANCREAS: No significant abnormality is seen. No ductal dilatation. SPLEEN: No significant abnormality is seen. Small splenule is seen adjacent to the [place] spleen. ADRENALS: No significant abnormality is seen. KIDNEYS: 2 mm left lower pole nonobstructing renal calculus is seen. No right-sided renal calculi. No hydronephrosis of either kidney. FREE AIR: No free air is visualized REPRODUCTIVE ORGANS: Bilateral fat filled inguinal hernias are present. Prostate gland is heterogenou s containing central zone calcifications. URINARY BLADDER: No significant abnormality is seen. ADENOPATHY: None visualized. OSSEOUS STRUCTURES: Vertebral body hemangiomas incidentally noted of T10. Osseous structures are axel ssly intact. BOWEL: Appendix is surgically absent with surgical clips around the cecum. No regular quadrant fat s tranding. Solitary calcified lymph node is noted within the right lower quadrant. IMPRESSION: 1. NO EVIDENCE OF NEPHROLITHIASIS OR HYDRONEPHROSIS ON THE RIGHT. 2. 2 MM NONOBSTRUCTING LEFT LOWER POLE RENAL CALCULUS. NO HYDRONEPHROSIS. 3. SMALL FAT FILLED BILATERAL INGUINAL HERNIAS. 4. HEPATIC STEATOSIS.
[2017-10-21 14:45] LABS: C. trachomatis,PCR Negative (Neg,Equiv); Chlamydia trachomatis Source Urine; N. gonorrhoeae,PCR Negative (Neg,Equiv); Neisseria Source Urine
== END 2017-10-19 17:31 | disposition home or self-care (01) ==
LOC: EC 14:12
DX: R10.9 Unspecified abdominal pain (principal); K21.9 Gastro-esophageal reflux disease without esophagitis; E07.9 Disorder of thyroid, unspecified; Z87.442 Personal history of urinary calculi; Z90.49 Acquired absence of other specified parts of digestive tract; Z79.899 Other long term (current) drug therapy; Z88.8 Allergy status to other drugs, medicaments and biological substances
CPT/HCPCS: 99284; 96374; 96375; 96361 ×2; 36415; 80053; 82150; 83690; 85025; 81003; 80306; 74018; 74176; J2405; J1885; 87491; 87591; 99211

== ENCOUNTER → 2017-10-19 | Outpatient (CLI) | payer OTHER ==
[2017-10-19 13:43] VITALS: BP 133/85; PULSE 67; RESP 18
--- NOTE | 2017-10-19 14:05 | P.PN ---
Progress Note - Text Progress Note Date: 10/19/17 Patient returns for followup for chronic back pain with radiation to hips, without significant leg pain. Patient previously underwent bilateral lumbar RFA in April/May which did not give him as much relief as usual. Patient continues on alprazolam with substantially more pain relief, although he has had to use occasional oxycodone (7 times in last month) due to recent move. Patient denies adverse drug effects from medications. Today, pt denies new- onset weakness, bowel/bladder incontinence, or any other signs or symptoms of cauda equina syndrome. There are no signs of acute intoxication, and no indications of medication diversion or overuse. In addition to above, 13-point review of systems is also negative for chest pain , shortness of breath, changes in vision, changes in hearing, new onset weakness , abdominal pain, diarrhea, extreme fatigue, malaise, fever, skin changes, homicidal or suicidal ideation, or bowel or bladder incontinence. Vital Signs: Reviewed in EMR Gen: WDWN, AAOx3, NAD HEENT: NCAT, EOMI, hearing grossly normal Pulm: resp unlabored Abd: soft, NT, ND Neck: supple, trachea midline ROM in flexion lumbar spine: reduced ROM in extension lumbar spine: reduced Lumbar paravertebral tenderness: + Facet loading: + bilateral, L > R SI joint tenderness: + L > R Gonzalez's test: + Straight leg raise: neg Neuro: CN II-XII grossly intact, muscle strength lower extremities PRESERVED Imaging: Reviewed in EMR Assessment: 1. lumbar spondylosis 2. SIJ dysfunction 3. chronic pain syndrome Plan: 1. Explanation: Opioid and psychological risk scores were reviewed. Diagnoses , prognoses, and multiple treatment options including but not limited to physical therapy, interventional therapies, adjuvant medical therapies, narcotic medication therapies, and surgery were discussed with the patient and all questions were answered to the patient's satisfaction. 2. Opioid agreement: Patient has previously signed narcotic agreement, and was orally counseled to not overuse, abuse, divert, or cell medications, and to take them as prescribed by only 1 healthcare provider. The patient was also counseled to store opioid medications in a safe and preferably locked location. Patient was also counseled against driving or operating heavy equipment while using narcotic medications and also to not use alcohol or any illicit or recreational drugs. The patient verbalized understanding that lack of compliance with any of the above and likely result in failure to renew narcotic prescriptions, possible discharge from the clinic, and possible legal ramifications thereafter if indicated. 3. Counseling: The patient was counseled extensively on BODY MASS INDEX, EXERCISE. Specifically, the patient was instructed regarding the importance of weight control, and exercise in the context of both chronic pain and overall health. 4. Procedures: repeat R lumbar RFA 5. Consultations: none 6. Investigations: None 7. Medications: refill Xanax 0.5 mg qhs #30 with one refill and Zanaflex; patient still has oxycodone pills. I instructed him specifically to use maximum one (1) oxycodone 5 mg pill in a 24-hour period along with Xanax and anticipate stopping oxycodone in the next several months 8. Disposition: f/u for procedure as scheduled in 8 weeks. I advised patient regarding issues with combination of sedatives and opioids including increased likelihood of overdose and addiction, respiratory depression, and . He verbalized understanding.
== END | disposition home or self-care (01) ==
LOC: PNWHC3 13:24
PROVIDERS: ATTEND Anesthesiology
DX: G89.4 Chronic pain syndrome (principal); M54.9 Dorsalgia, unspecified; M47.816 Spondylosis without myelopathy or radiculopathy, lumbar region; M53.88 Other specified dorsopathies, sacral and sacrococcygeal region; Z79.899 Other long term (current) drug therapy; Z79.891 Long term (current) use of opiate analgesic
CPT/HCPCS: 99211

== ENCOUNTER 2017-11-04 20:40 | Emergency (ER) | payer OTHER ==
[2017-11-04] MEDS ORDERED: PROPARACAINE 0.5% OPHTH DROPS 15 ML BTL ONE (21:45)
[2017-11-04] MEDS ORDERED: ACETAMINOPHEN TAB 500 MG TAB PO STA (21:55)
--- NOTE | 2017-11-04 21:55 | ED ---
General Adult HPI - General Chief complaint: Eye Problems Stated complaint: eye problems Time Seen by Provider: 11/04/17 21:05 Source: patient, RN notes reviewed Mode of arrival: ambulatory Limitations: no limitations - History of Present Illness Initial comments: This is a 37-year-old male who presents emergency department stating that 2 days ago both of his eyes itch to with the left itching a little more. Patient states then his left eye became red and on Thursday he went to the urgent care they gave him Justice told in the put it every 2 hours. Patient states she's done at the both of his eyes throughout the night and as of today both eyes are much more red with the left one becoming much more inflamed with the eyelid becoming a little swollen. Patient also states just lateral to both eyes on his face is a little tender. Patient says also all of a sudden he's noticed she 's had some dysuria since this all began. Patient denies any difficulty breathing shortness of breath or cough. Patient denies any abdominal pain patient denies nausea vomiting diarrhea. Patient denies headache patient denies numbness weakness. Patient states when he woke up this morning his eyes were crusted shut and needed a warm washcloth to be able to get the eyes open. - Related Data Home Medications Medication Instructions Recorded Confirmed Levothyroxine Sodium [Synthroid] 50 mcg PO DAILY 03/30/14 11/04/17 Testosterone Cypionate 200 mg INJ 02/21/16 11/04/17 [Depo-Testosterone] oxyCODONE HCL 5 - 10 mg PO DAILY PRN 10/19/17 11/04/17 Previous Rx's Medication Instructions Recorded ALPRAZolam [ALPRAZolam XR] 0.5 mg PO DAILY PRN #30 tab 10/19/17 tiZANidine [Zanaflex] 2 mg PO Q6HR PRN #180 tab 10/19/17 Amoxicillin/Potassium Clav 1 each PO Q12HR #20 tab 11/04/17 [Augmentin 875-125 Tablet] Allergies Allergy/AdvReac Type Severity Reaction Status Date / Time duloxetine HCl AdvReac Severe severe Verified 11/04/17 21:54 [From Cymbalta] headache gabapentin [From Neurontin] AdvReac HEADACHE Verified 11/04/17 21:54 Review of Systems ROS Statement: Those systems with pertinent positive or pertinent negative responses have been documented in the HPI. ROS Other: All systems not noted in ROS Statement are negative. Past Medical History Past Medical History: GERD/Reflux, Thyroid Disorder Additional Past Medical History / Comment(s): KIDNEY STONE,CHRONIC BACK PAIN History of Any Multi-Drug Resistant Organisms: None Reported Past Surgical History: Appendectomy, Cholecystectomy Additional Past Surgical History / Comment(s): PAIN PROCEDURES AT [facility]. Past Anesthesia/Blood Transfusion Reactions: Previous Problems w/ Anesthesia Additional Past Anesthesia/Blood Transfusion Reaction / Comment(s): STATES "NOVOCAINE DOESN'T WORK ON ME" "TAKES MORE THAN NORMAL TO PUT ME OUT" Past Psychological History: No Psychological Hx Reported Smoking Status: Never smoker Past Alcohol Use History: None Reported Past Drug Use History: None Reported - Past Family History Mother Family Medical History: No Reported History Father Additional Family Medical History / Comment(s): SMOKER. General Exam - General Exam Comments Initial Comments: GENERAL: Patient is well-developed and well-nourished. Patient is nontoxic and well- hydrated and is in mild distress. ENT: Neck is soft and supple. No significant lymphadenopathy is noted. Oropharynx is clear. Moist mucous membranes. Neck has full range of motion without eliciting any pain. EYES: Extraocular motion is intact. Patient's conjunctiva is extremely injected especially on the left. Patient's left upper eyelid is also mildly swollen. Patient's pupils are reactive to light and equal measuring about 2 mm in the room. PULMONARY: Unlabored respirations. Good breath sounds bilaterally. No audible rales rhonchi or wheezing was noted. CARDIOVASCULAR: There is a regular rate and rhythm without any murmurs gallops or rubs. ABDOMEN: Soft and nontender with normal bowel sounds. No palpable organomegaly was noted. There is no palpable pulsatile mass. SKIN: Skin is clear with no lesions or rashes and otherwise unremarkable. NEUROLOGIC: Patient is alert and oriented x3. Cranial nerves II through XII are grossly intact. Motor and sensory are also intact. Normal speech, volume and content. Symmetrical smile. PSYCHIATRIC: Normal psychiatric evaluation. Limitations: no limitations Course Vital Signs 11/04/17 21:05 Temperature 100.1 F H Pulse Rate 81 Respiratory 20 Rate Blood Pressure 137/86 O2 Sat by Pulse 99 Oximetry Medical Decision Making - Medical Decision Making I anesthetized eyes with some proparacaine and I used fluorescein strips to look at the eye with a Wood's lamp and I saw no foreign bodies and no abrasions. No ulcer was noted on either - Lab Data Result diagrams: 11/04/17 21:55 11/04/17 21:55 Lab Results 11/04/17 11/04/17 11/04/17 Range/Units 21:55 21:55 21:55 WBC 8.5 (3.8-10.6) k/uL RBC 5.22 (4.30-5.90) m/uL Hgb 15.3 (13.0-17.5) gm/dL Hct 47.4 (39.0-53.0) % MCV 90.8 (80.0-100.0) fL MCH 29.3 (25.0-35.0) pg MCHC 32.3 (31.0-37.0) g/dL RDW 14.6 (11.5-15.5) % Plt Count 232 (150-450) k/uL Neutrophils % 69 % Lymphocytes % 17 % Monocytes % 8 % Eosinophils % 3 % Basophils % 1 % Neutrophils # 5.8 (1.3-7.7) k/uL Lymphocytes # 1.4 (1.0-4.8) k/uL Monocytes # 0.7 (0-1.0) k/uL Eosinophils # 0.3 (0-0.7) k/uL Basophils # 0.1 (0-0.2) k/uL Sodium 141 (137-145) mmol/L Potassium 3.7 (3.5-5.1) mmol/L Chloride 100 (98-107) mmol/L Carbon Dioxide 28 (22-30) mmol/L Anion Gap 13 mmol/L BUN 11 (9-20) mg/dL Creatinine 1.20 (0.66-1.25) mg/dL Est GFR (MDRD) Af Amer >60 (>60 ml/min/1.73 sqM) Est GFR (MDRD) Non-Af >60 (>60 ml/min/1.73 sqM) Glucose 103 H (74-99) mg/dL Calcium 9.2 (8.4-10.2) mg/dL Total Bilirubin 0.3 (0.2-1.3) mg/dL AST 22 (17-59) U/L ALT 40 (21-72) U/L Alkaline Phosphatase 62 (38-126) U/L Total Protein 6.9 (6.3-8.2) g/dL Albumin 4.3 (3.5-5.0) g/dL Urine Color Yellow Urine Appearance Clear (Clear) Urine pH 7.0 (5.0-8.0) Ur Specific [place] 1.013 (1.001-1.035) Urine Protein Negative (Negative) Urine Glucose (UA) Negative (Negative) Urine Ketones Negative (Negative) Urine Blood Negative (Negative) Urine Nitrite Negative (Negative) Urine Bilirubin Negative (Negative) Urine Urobilinogen <2.0 (<2.0) mg/dL Ur Leukocyte Esterase Small H (Negative) Urine RBC 2 (0-5) /hpf Urine WBC 9 H (0-5) /hpf Ur Squamous Epith Cells <1 (0-4) /hpf Amorphous Sediment Rare H (None) /hpf Urine Bacteria Rare H (None) /hpf Urine Mucus Rare H (None) /hpf Disposition Clinical Impression: Bacterial conjunctivitis, Periorbital cellulitis Disposition: HOME SELF-CARE Condition: Good Instructions: Conjunctivitis (ED) Additional Instructions: Patient needs follow-up with ophthalmology in the morning. Patient should use tobramycin drops 2 drop each eye every 4 hours. Prescriptions: Amoxicillin/Potassium Clav [Augmentin 875-125 Tablet] 1 each PO Q12HR #20 tab Referrals: Martita Bello III, MD [Primary Care Provider] - 1-2 days Time of Disposition: 22:50
[2017-11-04 22:15] LABS: Basophils # (A) 0.1 k/uL (0-0.2); Basophils % (A) 1 %; Eosinophils # (A) 0.3 k/uL (0-0.7); Eosinophils % (A) 3 %; HCT 47.4 % (39.0-53.0); HGB 15.3 gm/dL (13.0-17.5); Lymphocytes # (A) 1.4 k/uL (1.0-4.8); Lymphocytes % (A) 17 %; MCH 29.3 pg (25.0-35.0); MCHC 32.3 g/dL (31.0-37.0); MCV 90.8 fL (80.0-100.0); Monocytes # (A) 0.7 k/uL (0-1.0); Monocytes % (A) 8 %; Neutrophils # (A) 5.8 k/uL (1.3-7.7); Neutrophils % (A) 69 %; Platelet Count 232 k/uL (150-450); RBC 5.22 m/uL (4.30-5.90); RDW 14.6 % (11.5-15.5); WBC 8.5 k/uL (3.8-10.6)
[2017-11-04 22:21] LABS: Amorphous Sediment,Urine Rare /hpf; Appearance,Urine Clear (Clear); Bacteria,Urine Rare /hpf; Bilirubin,Urine Negative (Negative); Blood,Urine Negative (Negative); Color,Urine Yellow; Glucose,Urine (UA) Negative (Negative); Ketones,Urine Negative (Negative); Leukocyte Esterase,Urine Small (Negative); Mucus,Urine Rare /hpf; Nitrite,Urine Negative (Negative); Protein,Urine Negative (Negative); RBC,Urine 2 /hpf (0-5); Specific Gravity,Urine 1.013 (1.001-1.035); Squamous Epithelial Cell,Urine <1 /hpf (0-4); Urobilinogen,Urine <2.0 mg/dL (<2.0); WBC,Urine 9 /hpf (0-5)
[2017-11-04 22:36] LABS: ALT 40 U/L (21-72); AST 22 U/L (17-59); Albumin 4.3 g/dL (3.5-5.0); Alkaline Phosphatase 62 U/L (38-126); Anion Gap 13 mmol/L; Blood Urea Nitrogen 11 mg/dL (9-20); Calcium 9.2 mg/dL (8.4-10.2); Carbon Dioxide 28 mmol/L (22-30); Chloride 100 mmol/L (98-107); Glucose 103 mg/dL (74-99); Potassium 3.7 mmol/L (3.5-5.1); Sodium 141 mmol/L (137-145); Total Bilirubin 0.3 mg/dL (0.2-1.3); Total Protein 6.9 g/dL (6.3-8.2)
[2017-11-04] MEDS ORDERED: AMOXIC-POT CLAV 875-125MG 1 EACH TAB PO STA (22:46)
[2017-11-04] MEDS ORDERED: AMOXIC-POT CLAV 875MG STARTER 2 EACH TABLET PO STA (22:46)
[2017-11-04] MEDS ORDERED: TOBRAMYCIN 0.3% OPHTH DROPS 5 ML BTL BOTH EYES STA (22:50)
[2017-11-04 23:13] VITALS: BP 135/85; PULSE 79; RESP 18; TEMP 98.9
== END 2017-11-04 23:13 | disposition home or self-care (01) ==
LOC: EC 20:40
DX: H10.89 Other conjunctivitis (principal); L03.213 Periorbital cellulitis; R30.0 Dysuria; E07.9 Disorder of thyroid, unspecified; Z88.8 Allergy status to other drugs, medicaments and biological substances; Z79.899 Other long term (current) drug therapy
CPT/HCPCS: 36415; 80053; 81001; 85025; 87040; 87086; 99283

== ENCOUNTER 2017-11-18 07:23 | Day surgery (SDC) | payer OTHER ==
[2017-11-13 09:23] VITALS: BMI 33.7
[~2017-11-18 07:23] MED LIST changes: -DEXAMETHASONE SOD PHOSPHATE 10 MG/ML 1 ML VIAL IV ONE; -HYDROmorphone 1 MG/ML 1 ML SYRINGE IVP PRN; -MIDAZOLAM 2 MG/2 ML VIAL IV PRN; -ONDANSETRON 4 MG/2 ML VIAL IVP ONE
[2017-11-18 07:49] VITALS: RESP 16; TEMP 98.1
[2017-11-18] MEDS ORDERED: LIDOCAINE 1% 20 ML VIAL (10MG/ML) FOR IV START INTRADERMA ONE (07:56)
[2017-11-18 08:15] LABS: Glucose,Whole Blood 90 mg/dL (75-99)
--- NOTE | 2017-11-18 08:30 | P.PCN ---
Date of Procedure: 11/18/17 Procedure(s) Performed: PREOPERATIVE DIAGNOSIS: 1-Lumbar Spondylosis with Facet Arthropathy without myelopathy. POSTOPERATIVE DIAGNOSIS: 1- Lumbar Spondylosis with Facet Arthropathy without myelopathy. PROCEDURES : Right Radiofrequency thermocoagulation, L3-L4, L4-L5, and L5-S1 medial branch, with fluoroscopic guidance ANESTHESIA: Moderate sedation with intravenous versed 2 mg and fentaneyl 150 mcg and local infiltration with lidocaine 1% 6 ml EBL: Minimal PROCEDURE INDICATION: The patient with low back pain secondary to lumbar facet arthropathy who had more than 50% relief of her pain with previous diagnostic lumbar medial branch block with bupivacaine. PROCEDURE DESCRIPTION / TECHNIQUE: The patient was seen and identified in the preoperative area. Risks, benefits, complications, including but not limited to risk of infection ,bleeding , allergic reactions to the medications and no complete pain releife , and alternatives were discussed with the patient, the patient agreed to proceed with the procedure and signed the consent. IV was started. Vital signs remained stable throughout the procedure. Patient was taken to the OR and time out was completed. The patient was placed in the prone position on the procedure table. The lumber area was prepped and draped in the usual sterile fashion. . Vital signs were closely monitored during the procedure .IV sedation was used during the procedure to decrease patients anxiety. Using AP and then oblique fluoroscopy, the ``eye of the John dog corresponding to the connection between the superior and transverse articular processes of right L3, L4, and L5 were identified, marked, and localized with 1 % lidocaine. Subsequently, a 18 [id number] radiofrequency cannula with a 10- mm active tip was advanced guided by fluoroscopy to each of the ``eyes of the John dog at right L3, L4, and L5. Each site then underwent sensory testing at 50 Hz and 0 to 1 volt and motor testing at 2.5 Hz and 0 to 3 volt with local stimulation, but no radicular symptoms down the legs. Thereafter the right L3-4, L4-5, and L5-S1 sites underwent radiofrequency thermocoagulation at 80 degrees celsius for 90 seconds after injecting 0.5 ml of PF lidocaine 1%. then After the thermocoagulation done , 1 ml of the block solution containing Kenalog 40 mg and 3 ml of marain 0.5% was injected at the right L3- 4 , L4-5 , and L5-S1, levels after negative aspiration of CSF and blood and with no paresthesias. Cannulas were retracted while injecting lidocaine 1% until the needle is out. At the end of the procedure, the skin was cleansed and bandages were applied. COMPLICATIONS: No acute complications. DISPOSITION / PLANS: The patient was placed in a supine position and transferred to the recovery area in a stable condition for observation and was discharged from the recovery room after meeting discharge criteria. Home discharge instructions given to the patient by the staff. The patient was reexamined prior to discharge. The patient will schedule a follow up in the clinic in 2-4 weeks. Patient was given prescription refills for Zanaflex 4 mg every 8 hours dispense 90 with 1 refill Patient reported that he is having the side effect from Xanax make him very drowsy, for this reason I will discontinue Zanaflex Patient will be started on, Ultram 50 mg every 8 hours, when necessary dispense 60 with 1 refill , when necessary for pain, and discontinue oxycodone.
[2017-11-18] MEDS ORDERED: IV FLUID CONTINUATION 1,000 ML IV ONE ×2 (08:33)
--- NOTE | 2017-11-18 08:34 | FL ---
EXAMINATION TYPE: FL guided pain mgmt statistic DATE OF EXAM: 11/18/2017 HISTORY: Flouroscopy time 8 seconds of fluoroscopy provided. IMPRESSION: 1. Fluoroscopy time.
[2017-11-18] MEDS ORDERED: ONDANSETRON 4 MG/2 ML VIAL IVP ONE (08:53)
[2017-11-18 08:56] VITALS: BP 115/75; PULSE 58
== END 2017-11-18 09:21 | disposition home or self-care (01) ==
LOC: ORPAIN 07:23
PROVIDERS: ATTEND Specialist
DX: M47.816 Spondylosis without myelopathy or radiculopathy, lumbar region (principal); K21.9 Gastro-esophageal reflux disease without esophagitis; E03.9 Hypothyroidism, unspecified; Z88.8 Allergy status to other drugs, medicaments and biological substances
CPT/HCPCS: 64635; 64636; J2250; J3301; J2405; J3010; 99152

== ENCOUNTER → 2017-11-25 | Outpatient (CLI) | payer OTHER ==
--- NOTE | 2017-11-25 09:38 | US ---
EXAMINATION TYPE: US thyroid st tissue head/neck DATE OF EXAM: 11/25/2017 COMPARISON: US 2012 CLINICAL HISTORY: E03.9 Hypothyrodism. hair loss, starting thyroid meds tomorrow, patient had scan at [place] and they saw small nodule GLAND SIZE: Right Lobe: 4.5 x 1.5 x 2.1 cm Overall Parenchyma: homogenous Left Lobe: 4.1 x 1.3 x 1.8 cm Overall Parenchyma: homogeneous Isthmus Thickness: 0.4 cm NODULES RIGHT: # of nodules measured on right: 0 LEFT: # of nodules measured on left: 0 ISTHMUS: # of nodules measured in the isthmus:0 Bilateral neck scanned, no evidence of lymphadenopathy. No evidence of nodule at today's exam and no nodule noted from previous 2012 US here. Any anechoic ar ea on gland was proven to be vessel when color doppler was used. IMPRESSION: No evidence of thyroid nodule. Thyroid tissue is diffusely homogeneous.
== END | disposition home or self-care (01) ==
LOC: RADUSWWP 07:03
PROVIDERS: ATTEND Family Medicine
DX: E03.9 Hypothyroidism, unspecified (principal)
CPT/HCPCS: 76536

== ENCOUNTER 2018-01-07 07:05 | Day surgery (SDC) | payer OTHER ==
[2017-12-17 14:11] VITALS: BMI 33.7
[2018-01-07 08:04] VITALS: TEMP 98.7
[2018-01-07] MEDS ORDERED: ONDANSETRON 4 MG/2 ML VIAL ONE (08:18)
[2018-01-07] MEDS ORDERED: LIDOCAINE 1% 20 ML VIAL (10MG/ML) FOR IV START IV ONE (08:23)
[2018-01-07] MEDS ORDERED: IV FLUID CONTINUATION 1,000 ML IV ONE (09:27)
[2018-01-07 09:30] VITALS: RESP 16
[2018-01-07 09:45] VITALS: BP 120/80; PULSE 50
--- NOTE | 2018-01-07 11:06 | FL ---
Fluoroscopy HISTORY: Pain 12 seconds fluoroscopy time supplied to the referring clinician. 5 intraoperative C-arm images docum ent the procedure. See dictated report from anesthesia.
--- NOTE | 2018-01-13 09:02 | P.PCN ---
Date of Procedure: 01/07/18 Surgeon: Jovani Shoemaker Pathology: none sent Condition: stable Disposition: PACU Description of Procedure: PREOPERATIVE DIAGNOSIS: Lumbar spondylosis without myelopathy and facet arthropathy POSTOPERATIVE DIAGNOSIS: Lumbar spondylosis without myelopathy and facet arthropathy PROCEDURES: Left Radiofrequency thermocoagulation, L3-L4, L4-L5, and L5-S1 medial branch, with fluoroscopic guidance. ANESTHESIA: 1% lidocaine plain; Conscious sedation with versed/fentanyl EBL: Minimal PROCEDURE INDICATION: The patient with low back pain secondary to lumbar arthropathy who had more than 50% relief of pain with previous diagnostic lumbar medial branch block with bupivacaine. Patient presents for left lumbar RFA today; no use of blood thinners. PROCEDURE DESCRIPTION / TECHNIQUE: The patient was seen and identified in the preoperative area. Risks, benefits, complications, and alternatives were discussed with the patient (including but not limited to incomplete pain relief , bleeding, infection, nerve damage, and allergies to medications), the patient agreed to proceed with the procedure and signed the consent after all questions were answered. Patient was taken to the OR and time out was completed to verify proper patient , position, laterality of pain, and allergies. Pt was placed in the prone position. IV was started. Vital signs remained stable throughout the procedure. A pillow was placed under the patients chest to decrease lordosis. The lumbosacral area was prepped and draped in the usual sterile fashion. Vital signs were closely monitored during the procedure. Conscious sedation was used during the procedure to decrease patients anxiety. Using AP and then oblique fluoroscopy, the eye of the John dog corresponding to the connection between the superior and transverse articular processes of left L3, L4, L5 and top of the sacrum were identified, marked, and localized with 1% lidocaine. Subsequently, a 18 gauge, 100-mm radiofrequency cannula with a 10-mm active tip was advanced guided by fluoroscopy to each of the eyes of the John dog at the levels of all four medial branches. Each site then underwent sensory testing at 50 Hz and 0 to 1 volt and motor testing at 2 Hz and 0 to 3 volt with local stimulation, but no radicular symptoms down the legs. Thereafter all four medial branch sites underwent radiofrequency thermocoagulation at 80 degrees Celsius for 90 seconds after injecting 0.5 ml of PF lidocaine 1%. After thermocoagulation, 1 ml of the block solution containing Kenalog 40 mg and 2 mL of preservative-free normal saline was injected at all four medial branch levels after negative aspiration of CSF and blood and with no paresthesias. Cannulas were retracted while injecting lidocaine 1% until the needles were removed. At the end of the procedure, the skin was cleansed and bandages were applied. COMPLICATIONS: No acute complications. DISPOSITION / PLANS: The patient was placed in a supine position and transferred to the recovery area in a stable condition for observation and was discharged from the recovery room after meeting discharge criteria. Home discharge instructions given to the patient by the staff. The patient was reexamined prior to discharge and there were no issues. Patient is losing his insurance as of the end of January and is requesting three months of medications today. He notes that he is using his oxycodone 5 mg two pills every other day. Three prescriptions written for oxycodone 5 mg #30, postdated appropriately. Patient will follow up when his insurance is reinstated.
== END 2018-01-07 09:51 | disposition home or self-care (01) ==
LOC: ORPAIN 07:05
PROVIDERS: ATTEND Anesthesiology
DX: M47.816 Spondylosis without myelopathy or radiculopathy, lumbar region (principal); I10 Essential (primary) hypertension; F32.9 Major depressive disorder, single episode, unspecified; Z88.8 Allergy status to other drugs, medicaments and biological substances
CPT/HCPCS: 64635; 64636 ×2; J2250; J3301; J2405; J3010; Q9966; 20553; 99152

== ENCOUNTER → 2018-11-17 | Outpatient (CLI) | payer OTHER ==
[2018-11-17 12:07] VITALS: BP 128/89; PULSE 99; RESP 16
--- NOTE | 2018-11-17 12:25 | P.PN ---
Subjective Progress Note Date: 11/17/18 This is an obese 38-year-old gentleman with history of chronic lower back pain with radiation to both legs to mid calves and occasional tingling and numbness in the legs in no specific radicular distribution. The patient has been using oxycodone and Zanaflex for his pain combined with lumbar medial branch RFA from time to time. He also uses testosterone injection which he also noticed that it does help his pain. Last time we give him prescription for oxycodone was in December 2017. The patient has been rationing his oxycodone pills since that time. He gained his insurance back recently and that's why he started to come back to our clinic. 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 Today, pt denies new-onset weakness, bowel/bladder incontinence, or any other signs or symptoms of cauda equina syndrome. There are no signs of acute intoxication, and no indications of medication diversion or overuse. In addition to above, 13-point review of systems is also negative for chest pain , shortness of breath, changes in vision, changes in hearing, new onset weakness , abdominal pain, diarrhea, extreme fatigue, malaise, fever, skin changes, homicidal or suicidal ideation, or bowel or bladder incontinence. Vital Signs: Reviewed in EMR Gen: AAOx3, NAD HEENT: PERRLA,hearing grossly normal Pulm: resp unlabored,CTA Heart:S1,S2, No Mur Neck: supple, trachea midline Neuro exam of the lower extremities: Decreased but symmetrical knee reflexes and absent ankle reflexes. Muscle strength exam is within normal limits in the lower extremities. Positive tenderness around the right sacroiliac joint Facet loading test: Positive Tenderness in the paravertebral musculature: Positive on the lumbar area on the right side Neuro: CN II-XII grossly intact, Imaging: Reviewed in EMR/chart Assessment: Lumbar spondylosis without myelopathy Lumbar DDD Right sacroiliitis Obesity Chronic Treatment with testosterone. Plan: 1. Explanation: Opioid and psychological risk scores were reviewed. Diagnoses , prognoses, and multiple treatment options including but not limited to physical therapy, interventional therapies, adjuvant medical therapies, narcotic medication therapies, and surgery were discussed with the patient and all questions were answered to the patient's satisfaction. 2. Opioid agreement: Signed with the patient and the patient is warned not to use opioids while driving or before driving and not to combine opioids with benzodiazepines or alcohol. 3. Counseling: The patient was counseled extensively on SMOKING CESSATION, BODY MASS INDEX, EXERCISE. Specifically, the patient was instructed regarding the importance of smoking cessation, obesity, and exercise in the context of both chronic pain and overall health. 4. Procedures: Scheduled for right lumbar medial branch RFA for levels L3 4, L4- L5, and L5-S1 under fluoroscopic guidance. 5. Consultations: The patient is to follow up with his primary care physician for PSA levels given his chronic treatment with testosterone 6. Investigations: None 7. Medications: I will give the patient 1 time prescription only for oxycodone 5 mg #30 pills and I will refer him to Dr. Espinosa for opioid prescription. Zanaflex 8 mg #60 pills with no refills will be given 2. 8. Disposition: Return to the above-mentioned procedure 9. Maps were reviewed and were appropriate. PQRS measures: 1-Patient's medications are documented in the chart. 2-Tobacco use is negative, counseling given 3-Patient has not had a pneumococcal vaccine. 4-Advanced care planning discussed, patient unable to give 5-Opioid contract signed with the patient. 6-Pain positive, follow-up visit or procedure scheduled 7-Patient's blood pressure measured and documented within normal limits. 8-Patient's weight was measured, and body mass index ABOVE the normal limits, and counseling was done. Patient instructed to follow up with PCP. 9-Patient WAS NOT identified as an unhealthy alcohol user. Controlled Substance Measures Is patient prescribed a controlled substance at discharge?: Yes When asked, does pt state using other controlled substances?: No If prescribed controlled substance>3 days was MAPS reviewed?: Yes If Rx opioid, was Start Talking consent form obtained?: Yes If opioid is for acute pain is fill amount 7 days or less?: No Was information provided regarding opioid addiction?: Yes Objective - Vital Signs Vital signs: Vital Signs Temp Pulse 99 11/17/18 12:02 Resp 16 11/17/18 12:02 BP 128/89 11/17/18 12:02 Pulse Ox 98 11/17/18 12:02 Intake & Output 11/16/18 11/17/18 11/17/18 18:59 06:59 18:59 Weight 113.398 kg
== END | disposition home or self-care (01) ==
LOC: PNWHC3 11:49
PROVIDERS: ATTEND Anesthesiology
DX: G89.29 Other chronic pain (principal); M51.36 Other intervertebral disc degeneration, lumbar region; M47.816 Spondylosis without myelopathy or radiculopathy, lumbar region; M46.1 Sacroiliitis, not elsewhere classified; E66.9 Obesity, unspecified; Z98.890 Other specified postprocedural states; Z79.899 Other long term (current) drug therapy; Z68.32 Body mass index [BMI] 32.0-32.9, adult
CPT/HCPCS: 99211

== ENCOUNTER 2018-12-09 07:25 | Day surgery (SDC) | payer OTHER ==
[2018-12-06 15:51] VITALS: BMI 33.7
[~2018-12-09 07:25] MED LIST changes: -LACTATED RINGERS 1,000 ML IV SCH; +SODIUM CHLORIDE 0.9% 500 ML 500 ML IV SCH
[2018-12-09 07:55] VITALS: TEMP 97.6
[2018-12-09] MEDS ORDERED: LACTATED RINGERS 1,000 ML IV ONE (08:05)
[2018-12-09] MEDS ORDERED: LIDOCAINE 1% 20 ML VIAL (10MG/ML) FOR IV START INTRADERMA ONE (08:05)
[2018-12-09] MEDS ORDERED: ONDANSETRON 4 MG/2 ML VIAL IVP ONE (08:05)
--- NOTE | 2018-12-09 09:03 | P.PCN ---
Date of Procedure: 12/09/18 Description of Procedure: Surgeon: Joana Trent Pathology: none sent Condition: stable Disposition: PACU Description of Procedure: PREOPERATIVE DIAGNOSIS: Lumbar spondylosis without myelopathy, obesity POSTOPERATIVE DIAGNOSIS: Lumbar spondylosis without myelopathy, obesity PROCEDURES : Left Radiofrequency thermocoagulation L3-L4, L4-L5, and L5-S1 medial branch, with fluoroscopic guidance ANESTHESIA: Local with IV moderate conscious sedation with Versed and fentanyl EBL: Minimal PROCEDURE INDICATION: The patient with low back pain secondary to lumbar facet arthropathy who had more than 50% relief of her pain with previous diagnostic lumbar medial branch block with bupivacaine. PROCEDURE DESCRIPTION / TECHNIQUE: The patient was seen and identified in the preoperative area. Risks, benefits, complications, including but not limited to risk of infection ,bleeding , allergic reactions to the medications and no complete pain relief , and alternatives were discussed with the patient, the patient agreed to proceed with the procedure and signed the consent. IV was started. Vital signs remained stable throughout the procedure. Patient was taken to the OR and time out was completed. The patient was placed in the prone position on the procedure table. The lumber area was prepped and draped in the usual sterile fashion. . Vital signs were closely monitored during the procedure .IV sedation was used during the procedure to decrease patients anxiety. The target points were identified as follows: For the L5-S1 level which corresponds to the dorsal ramus of L5 the target point was at the superior medial aspect of the sacral ala on the Ltside of the spine on the AP view of fluoroscopy and for the L3, and L4 medial branches the target points were at the connection between the transverse process and the superior articular process of L3, L4, and L5 vertebra respectively on the Lt oblique view of fluoroscopy. skin was marked, and localized with 1% lidocaineat these points. Subsequently, an 18 [id number] radiofrequency needles with a 10-mm curved active tips were advanced guided by fluoroscopy to each of the target points mentioned above in a superior medial direction to get the active tips as parallel as possible to the medial branches tracks. AP, oblique, and lateral views of fluoroscopy were used to verify needle tips position. Each level then underwent motor testing at 2.5 Hz and 0 to 3 volt with local stimulation, but no radicular symptoms down the legs. I then injected 1 mL of lidocaine 1% in each needle .Thereafter radiofrequency thermocoagulation at 80 degrees celsius for 90 seconds then I injected 1 ml from a mixture of PF Marcaine 0.5%( 2 mls) with 40 mg of Kenalog. At the end of the procedure, needles were taken out, skin was cleansed and bandages were applied. COMPLICATIONS: No acute complications. DISPOSITION / PLANS: The patient was placed in a supine position and transferred to the recovery area in a stable condition for observation and was discharged from the recovery room after meeting discharge criteria. Home discharge instructions given to the patient by the staff. The patient was reexamined prior to discharge. The patient will schedule a follow up in the clinic in 2-4 weeks.
[2018-12-09] MEDS ORDERED: IV FLUID CONTINUATION 800 ML IV ONE (09:08)
[2018-12-09 09:32] VITALS: BP 109/72; PULSE 63; RESP 16
--- NOTE | 2018-12-09 11:46 | FL ---
EXAMINATION TYPE: FL guided pain mgmt statistic DATE OF EXAM: 12/09/2018 HISTORY: Flouroscopy time 21 seconds of fluoroscopy provided. IMPRESSION: 1. Fluoroscopy time.
== END 2018-12-09 09:37 | disposition home or self-care (01) ==
LOC: ORPAIN 07:25
PROVIDERS: ATTEND Anesthesiology
DX: M89.29 Other disorders of bone development and growth, multiple sites (principal); M47.816 Spondylosis without myelopathy or radiculopathy, lumbar region; M51.36 Other intervertebral disc degeneration, lumbar region; M46.1 Sacroiliitis, not elsewhere classified; E66.9 Obesity, unspecified; Z68.33 Body mass index [BMI] 33.0-33.9, adult; Z79.890 Hormone replacement therapy; Z79.891 Long term (current) use of opiate analgesic; Z79.899 Other long term (current) drug therapy
CPT/HCPCS: 64635; 64636; J2250; J3301; J2405; J2001; J3010; 99152

== ENCOUNTER → 2019-01-04 | Outpatient (CLI) | payer OTHER ==
[2019-01-04 13:35] VITALS: BP 143/87; PULSE 70; RESP 16
--- NOTE | 2019-01-05 08:59 | P.PN ---
Subjective Progress Note Date: 01/04/19 This is follow-up visit for this patient with a history of severe and chronic low back pain secondary to , lumbar spondylosis with facet arthropathy, We have done interventional pain procedures radiofrequency ablation of medial branch lumbar area, which helped his low back pain significantly, currently is complaining of severe mid back pain and severe buttock pain bilaterally, the pain is constant and increases with any activity, interfering with her quality of life Patients currently on oxycodone 5 mg 2 tablets once or twice a day, Zanaflex 8 mg twice a day Patient denies any side effects of the medication, denies excessive drowsiness or sleepiness, denies suicidal ideation, and reports that the current pain medication is helping to control the pain ,and improve activity of daily living Patient denies any motor or sensory deficit , patient denies any fever or night sweats, denies any change in the bowel movements or urination Physical Examinations : -Constitutional : Cooperative , not in acute distress . -HEENT : nech ; supple , no Lymphadenopathy , no Thyromegaly , normal thyroid size . eyes : no ptosis , no icterus, no photophobia . - neurologic: Cranial nerve II to XII intact , no focal neurological deffecit . - Psychatric: alert , oriented X 3 , appropriate affect , intact judgment and insight . - Lymphatic : no Lymphadenopathy . - Musculoskeltal : exams of the cervical spine = motor strength normal bilateral upper extremities facet loading test cervical area positive. Exams of the thoracic spine= multiple trigger points in the thoracic paravertebral muscles around T10 to T12 bilaterally Exams of the Lumber spine= moter stegnth lower extremities ,thigh and legs 5/5 Right side , 5/5 Left side deep tendon reflexes : normal Knee Jerk , normal ankle Jerk positive lumber facet Loading Test Range of motion of the lumbar spine Flexion 30 degrees, extension 10 degrees strait leg raising test , positive at degree Fabere test positive RT and positive LT . Sever tenderness over the Sacroiliac joint on the R and L sides Gaenslen test positive bilaterally. Seated flexion test positive bilaterally. Assessment and plan = Chronic low back pain secondary to , lumbar spondylosis with facet arthropathy without myelopathy Pain improvement after the radiofrequency ablation of the medial branch lumbar area Myofascial pain syndrome thoracic paravertebral muscles. Bilateral sacroiliitis. chronic and current use of high-risk medication (Opioids). The patient was counseled about risk of opioid use, psychological risk associated with opioids and was orally counseled to not overuse , divert,or sell dictations to take medications as prescribed only , and to restore medication in safe location , the patient counseled against driving while using narcotic medications, and also not to use alcohol or any illicit recreational drugs, patient's verbalized understanding that the lack of compliance will result in failure to renew narcotic prescription and possible discharge from the clinic - diagnoses, prognosis, and treatment options including but not limited to physical therapy, surgical interventions, interventional therapies , and medication management including narcotics and adjuvant medication were discussed with the patient and all the questions answered MAPS reviewed and it was apropriate Prescription refill for Zanaflex 8 mg 12 hours dispense 60 with one refill, oxycodone 5 mg 2 tablets twice a day when necessary dispensed 30 with one refill. Patient could benefit from bilateral sacroiliac joint steroid injections under fluoroscopy guidance and the same time he could benefit from trigger point injection thoracic paravertebral muscles, procedure risks and benefits and alternatives discussed with the patient he agreed with the procedure. - PQRS measures = - Patient's medications are documented in the chart. -Tobacco use is negative and counseling.Given. -Patient's has not received pneumococcal vaccine. -Advanced care planning discussed, patient not eligible. -Opiate contract signed. -Pain positive and follow-up visit/procedure is scheduled. -Patient's blood pressure measured [ 142/90 ] , and documented in the record ,and patient will follow up with the primary care. -Patient's weight was measured and body mass index [32 ] above the,within the normal limits and counseling was done. and patient instructed to follow-up with the primary care physician. -Patient was not identified as an unhealthy alcohol user Objective - Vital Signs Vital signs: Vital Signs Temp Pulse 70 01/04/19 13:27 Resp 16 01/04/19 13:27 BP 143/87 01/04/19 13:27 Pulse Ox 95 01/04/19 13:27 Intake & Output 01/04/19 01/05/19 01/05/19 18:59 06:59 18:59 Weight 113.852 kg
== END ==
LOC: PNWHC3 13:17
PROVIDERS: ATTEND Specialist
DX: G89.29 Other chronic pain (principal); M47.816 Spondylosis without myelopathy or radiculopathy, lumbar region; M46.86 Other specified inflammatory spondylopathies, lumbar region; M79.18 Myalgia, other site; F11.90 Opioid use, unspecified, uncomplicated; M46.1 Sacroiliitis, not elsewhere classified; Z98.890 Other specified postprocedural states; Z79.899 Other long term (current) drug therapy
CPT/HCPCS: 99211

== ENCOUNTER → 2019-01-18 | Day surgery (SDC) | payer OTHER ==
[2019-01-13 09:30] VITALS: BMI 31.8
[~2019-01-18] MED LIST changes: +IV FLUID CONTINUATION 1,000 ML IV ONE; +LACTATED RINGERS 1,000 ML IV SCH; +LIDOCAINE 1% 20 ML VIAL (10MG/ML) FOR IV START INTRADERMA ONE; +ONDANSETRON 4 MG/2 ML VIAL IVP ONE; -SODIUM CHLORIDE 0.9% 500 ML 500 ML IV SCH
[2019-01-18 06:36] VITALS: TEMP 98.3
--- NOTE | 2019-01-18 07:26 | P.PCN ---
Date of Procedure: 01/18/19 Procedure(s) Performed: Procedure= 1-bilateral sacral iliac joints steroid injection under fluoroscopy guidance. 2-trigger point injections thoracic paravertebral muscles total of 2 trigger points injected 1 on the right side and 1 on the left side. Preoperative diagnosis= 1-sacroiliitis 2-myofascial pain syndrome thoracic area. 3-lumbar spondylosis with lumbar facet arthropathy . Postoperative diagnosis= same as preoperative diagnosis Complication = none Condition= stable Anesthesia= moderate sedation with intravenous Versed 4 mg , and fentanyl 100 micrograms and local infiltration with lidocaine 1% 4 mL Indication for the procedure= patient complaining of low back pain , examination was positive for severe tenderness over the sacroiliac joints bilaterally and patient diagnosed with sacroiliitis, for this reason he/ she was good candidate for sacroiliac joint steroid injection. Also exam showed patient had multiple trigger points in the thoracic paravertebral muscles area for this reason it was a good candidate to have trigger point injections thoracic paravertebral muscles Description of the procedure= procedure risk and benefits discussed with the patient, including but not limited, risk of infection and bleeding, and ALLERGIC reaction to the medication and not complete pain relief and patient agreed with the preceding patient taken to the operating room, placed in prone position or standard monitors applied to the patient then after induction of anesthesia back prepped with chlorhexidine 3 times , Then under strict sterile technique, first I did the right sacroiliac joint the which was identified under fluoroscopy guidance been local infiltration of the skin and subcu interstitial with lidocaine 1% then 22-gauge Quincke Needle advanced slowly under fluoroscopy and placed in the right sacroiliac joint needle placement confirmed with AP and oblique and lateral view and after appropriate needle placement confirmed and after negative aspiration, or heme , then Ropivacaine 0.5% 3 mL, and 40 mg of Depo-Medrol mixed together and injected in the right sacroiliac joint after negative aspiration patient tolerated the procedure well without any complication. Then the left sacroiliac joint steroid injection done under strict sterile technique local infiltration of the skin and subcu interstitial at the location of the left sacroiliac joint then a 22-gauge Quincke Needle advanced slowly under fluoroscopy time placed in the left sacroiliac joint, needle placement confirmed with AP and oblique and lateral view then after appropriate needle placement confirmed and after negative aspiration ,0.5% Ropivacaine 3 mL and 40 mg of Depo-Medrol injected in the left sacroiliac joint after negative aspiration Nelda trigger points injection done sterile technique, the thoracic area was prepped with Betadine 3, been using 25-gauge needle , 1 trigger point injected on the right side thoracic paravertebral muscles 0.5% ropivacaine for male injected on the right side thoracic paravertebral muscles, and the same time for the left side thoracic paravertebral muscles, injection done after negative aspiration and there was no paresthesia during the injection. Patient tolerated the procedure well without any complications.
[2019-01-18 07:48] VITALS: BP 103/70; PULSE 74; RESP 18
--- NOTE | 2019-01-18 09:12 | FL ---
EXAMINATION TYPE: FL guided pain mgmt statistic DATE OF EXAM: 01/18/2019 HISTORY: Flouroscopy time 7 seconds of fluoroscopy provided. IMPRESSION: 1. Fluoroscopy time.
== END ==
LOC: ORPAIN 06:01
PROVIDERS: ATTEND Specialist
DX: M46.1 Sacroiliitis, not elsewhere classified (principal); M47.896 Other spondylosis, lumbar region; M79.18 Myalgia, other site; I10 Essential (primary) hypertension; Z88.8 Allergy status to other drugs, medicaments and biological substances
CPT/HCPCS: 20552; 27096; J2250; J1030; J2405; J3010; 99152

== ENCOUNTER 2019-01-26 17:05 | Observation (INO) | payer OTHER ==
[2019-01-26] MEDS ORDERED: ASPIRIN 81 MG PO STA (17:20)
--- NOTE | 2019-01-26 17:58 | ED ---
General Adult HPI - General Chief complaint: Recheck/Abnormal Lab/Rx Stated complaint: Chest pain, High BP Time Seen by Provider: 01/26/19 17:20 Source: patient, RN notes reviewed Mode of arrival: ambulatory Limitations: no limitations - History of Present Illness Initial comments: 39-year-old male presents emergency Department with chief complaint of h ypertension, palpitations and chest discomfort. Patient states that he just has not felt well today states that he recently has been seen his physician for high blood pressure in which it up his dose of lisinopril from 5 mg to 10 mg. Patient states he went to 2 separate pharmacies along with [facility] his own blood pressure cuff and had elevated blood pressures above 170/110. Patient states that given the persistent hypertension and just not feeling well he proceeded to the emergency department. He has no history of hyperlipidemia or diabetes is a nonsmoker. - Related Data Home Medications Medication Instructions Recorded Confirmed Levothyroxine Sodium [Synthroid] 50 mcg PO DAILY 03/30/14 01/13/19 Acetaminophen Tab [Tylenol] 1,000 mg PO Q6HR PRN 11/08/17 01/18/19 oxyCODONE HCL [OxyIR] 10 mg PO DAILY PRN 11/08/17 01/13/19 Testosterone Injection 1 injection IJ Q3D 01/05/18 01/18/19 tiZANidine HCL [Zanaflex] 8 mg PO BID PRN 01/13/19 01/13/19 Lisinopril [Zestril] 5 mg PO DAILY 01/18/19 01/18/19 Previous Rx's Medication Instructions Recorded Triamcinolone 0.1% Cream [Kenalog 1 applic TOPICAL QID #1 tube 11/09/17 0.1% Cream] Allergies Allergy/AdvReac Type Severity Reaction Status Date / Time benzalkonium chloride Allergy Severe Swelling Verified 01/26/19 17:14 duloxetine HCl AdvReac Severe severe Verified 01/26/19 17:14 [From Cymbalta] headache gabapentin [From Neurontin] AdvReac HEADACHE Verified 01/26/19 17:14 Review of Systems ROS Statement: Those systems with pertinent positive or pertinent negative responses have been documented in the HPI. ROS Other: All systems not noted in ROS Statement are negative. Past Medical History Past Medical History: GERD/Reflux, Hypertension, Thyroid Disorder Additional Past Medical History / Comment(s): KIDNEY STONE,CHRONIC BACK PAIN, History of Any Multi-Drug Resistant Organisms: None Reported Past Surgical History: Appendectomy, Cholecystectomy Additional Past Surgical History / Comment(s): PAIN PROCEDURES Past Anesthesia/Blood Transfusion Reactions: Previous Problems w/ Anesthesia Additional Past Anesthesia/Blood Transfusion Reaction / Comment(s): STATES "NOVOCAINE DOESN'T WORK ON ME" "TAKES MORE THAN NORMAL TO PUT ME OUT" Past Psychological History: No Psychological Hx Reported Smoking Status: Never smoker Past Alcohol Use History: None Reported Past Drug Use History: None Reported - Past Family History Mother Family Medical History: No Reported History Father Additional Family Medical History / Comment(s): SMOKER. General Exam Limitations: no limitations General appearance: alert, in no apparent distress Head exam: Present: atraumatic, normocephalic, normal inspection Eye exam: Present: normal appearance, PERRL, EOMI. Absent: scleral icterus, conjunctival injection, periorbital swelling ENT exam: Present: normal exam, normal oropharynx, mucous membranes moist Neck exam: Present: normal inspection, full ROM. Absent: tenderness, meningismus, lymphadenopathy Respiratory exam: Present: normal lung sounds bilaterally. Absent: respiratory distress, wheezes, rales, rhonchi, stridor Cardiovascular Exam: Present: normal rhythm, tachycardia, normal heart sounds. Absent: systolic murmur, diastolic murmur, rubs, gallop, clicks GI/Abdominal exam: Present: soft, normal bowel sounds. Absent: distended, tenderness, guarding, rebound, rigid Back exam: Absent: CVA tenderness (R), CVA tenderness (L) Neurological exam: Present: alert, oriented X3, CN II-XII intact, reflexes normal. Absent: motor sensory deficit Skin exam: Present: warm, dry, intact, normal color. Absent: rash Course Vital Signs 01/26/19 01/26/19 01/26/19 17:12 17:47 17:48 Temperature 99.0 F Pulse Rate 107 H 111 H Pulse Rate [ 92 Glaze Maker ] Respiratory 20 18 Rate Blood Pressure 149/81 136/85 O2 Sat by Pulse 97 96 Oximetry 01/26/19 18:31 Temperature 99.1 F Pulse Rate 105 H Pulse Rate [ Glaze Maker ] Respiratory 18 Rate Blood Pressure 134/88 O2 Sat by Pulse 96 Oximetry EKG Findings - EKG Comments: EKG Findings:: EKG performed at 17:32 sinus tachycardia rate of 106 CA 154 QRS 88 QT/QTC 358/475 Medical Decision Making - Medical Decision Making 39-year-old male presented from chief complaint of chest pain, palpitations generalized not feeling well. Initial cardiac enzymes are negative EKG does not show anything acute. Patient be admitted for chest pain rule out, history of hypertension. - Lab Data Result diagrams: 01/26/19 17:47 01/26/19 17:47 Lab Results 01/26/19 01/26/19 01/26/19 Range/Units 17:47 17:47 17:47 WBC 16.7 H (3.8-10.6) k/uL RBC 5.99 H (4.30-5.90) m/uL Hgb 18.1 H (13.0-17.5) gm/dL Hct 54.8 H (39.0-53.0) % MCV 91.4 (80.0-100.0) fL MCH 30.2 (25.0-35.0) pg MCHC 33.0 (31.0-37.0) g/dL RDW 14.5 (11.5-15.5) % Plt Count 246 (150-450) k/uL Neutrophils % 83 % Lymphocytes % 8 % Monocytes % 7 % Eosinophils % 1 % Basophils % 0 % Neutrophils # 13.8 H (1.3-7.7) k/uL Lymphocytes # 1.4 (1.0-4.8) k/uL Monocytes # 1.1 H (0-1.0) k/uL Eosinophils # 0.1 (0-0.7) k/uL Basophils # 0.0 (0-0.2) k/uL PT 10.8 (9.0-12.0) sec INR 1.0 (<1.2) APTT 23.2 (22.0-30.0) sec Sodium 138 (137-145) mmol/L Potassium 3.7 (3.5-5.1) mmol/L Chloride 102 (98-107) mmol/L Carbon Dioxide 27 (22-30) mmol/L Anion Gap 9 mmol/L BUN 12 (9-20) mg/dL Creatinine 0.99 (0.66-1.25) mg/dL Est GFR (CKD-EPI)AfAm >90 (>60 ml/min/1.73 sqM) Est GFR (CKD-EPI)NonAf >90 (>60 ml/min/1.73 sqM) Glucose 87 (74-99) mg/dL Calcium 9.6 (8.4-10.2) mg/dL Magnesium 2.0 (1.6-2.3) mg/dL Total Bilirubin 0.8 (0.2-1.3) mg/dL AST 20 (17-59) U/L ALT 36 (21-72) U/L Alkaline Phosphatase 76 (38-126) U/L Troponin I (0.000-0.034) ng/mL Total Protein 7.5 (6.3-8.2) g/dL Albumin 4.6 (3.5-5.0) g/dL Lipase 209 (23-300) U/L 01/26/19 Range/Units 17:47 WBC (3.8-10.6) k/uL RBC (4.30-5.90) m/uL Hgb (13.0-17.5) gm/dL Hct (39.0-53.0) % MCV (80.0-100.0) fL MCH (25.0-35.0) pg MCHC (31.0-37.0) g/dL RDW (11.5-15.5) % Plt Count (150-450) k/uL Neutrophils % % Lymphocytes % % Monocytes % % Eosinophils % % Basophils % % Neutrophils # (1.3-7.7) k/uL Lymphocytes # (1.0-4.8) k/uL Monocytes # (0-1.0) k/uL Eosinophils # (0-0.7) k/uL Basophils # (0-0.2) k/uL PT (9.0-12.0) sec INR (<1.2) APTT (22.0-30.0) sec Sodium (137-145) mmol/L Potassium (3.5-5.1) mmol/L Chloride (98-107) mmol/L Carbon Dioxide (22-30) mmol/L Anion Gap mmol/L BUN (9-20) mg/dL Creatinine (0.66-1.25) mg/dL Est GFR (CKD-EPI)AfAm (>60 ml/min/1.73 sqM) Est GFR (CKD-EPI)NonAf (>60 ml/min/1.73 sqM) Glucose (74-99) mg/dL Calcium (8.4-10.2) mg/dL Magnesium (1.6-2.3) mg/dL Total Bilirubin (0.2-1.3) mg/dL AST (17-59) U/L ALT (21-72) U/L Alkaline Phosphatase (38-126) U/L Troponin I <0.012 (0.000-0.034) ng/mL Total Protein (6.3-8.2) g/dL Albumin (3.5-5.0) g/dL Lipase (23-300) U/L Disposition Clinical Impression: Chest pain, Palpitations, Hypertension Disposition: ADMITTED IP TO THIS HOSP Condition: Fair Referrals: Ryan Loving Jr, [Primary Care Provider] - 1-2 days
[2019-01-26 18:01] LABS: Basophils % (A) 0 %; Eosinophils # (A) 0.1 k/uL (0-0.7); Eosinophils % (A) 1 %; HCT 54.8 % (39.0-53.0); HGB 18.1 gm/dL (13.0-17.5); Lymphocytes # (A) 1.4 k/uL (1.0-4.8); Lymphocytes % (A) 8 %; MCH 30.2 pg (25.0-35.0); MCV 91.4 fL (80.0-100.0); Mean Platelet Volume 8.6; Monocytes # (A) 1.1 k/uL (0-1.0); Monocytes % (A) 7 %; Neutrophils # (A) 13.8 k/uL (1.3-7.7); Neutrophils % (A) 83 %; Platelet Count 246 k/uL (150-450); RBC 5.99 m/uL (4.30-5.90); RDW 14.5 % (11.5-15.5); WBC 16.7 k/uL (3.8-10.6)
--- NOTE | 2019-01-26 18:15 | XR ---
EXAMINATION: XR chest 2V DATE AND TIME: 01/26/2019 6:03 PM CLINICAL INDICATION: PHH; Chest Pain TECHNIQUE: Departmental protocol COMPARISON: 11/07/2017 FINDINGS: The lungs are clear. The pleural spaces are negative. The cardiac silhouette is not enlarged. The remainder of the mediastinal silhouette is unremarkable. The skeletal structures and soft tissues are negative for acute findings. IMPRESSION: NO ACUTE PROCESS.
[2019-01-26 18:16] LABS: Partial Thromboplastin Time 23.2 sec (22.0-30.0); Prothrombin Time 10.8 sec (9.0-12.0)
[2019-01-26 18:18] LABS: ALT 36 U/L (21-72); AST 20 U/L (17-59); Albumin 4.6 g/dL (3.5-5.0); Alkaline Phosphatase 76 U/L (38-126); Anion Gap 9 mmol/L; Blood Urea Nitrogen 12 mg/dL (9-20); Calcium 9.6 mg/dL (8.4-10.2); Carbon Dioxide 27 mmol/L (22-30); Chloride 102 mmol/L (98-107); Glucose 87 mg/dL (74-99); Lipase 209 U/L (23-300); Potassium 3.7 mmol/L (3.5-5.1); Sodium 138 mmol/L (137-145); Total Bilirubin 0.8 mg/dL (0.2-1.3); Total Protein 7.5 g/dL (6.3-8.2)
[2019-01-26] MEDS ORDERED: SODIUM CHLORIDE 0.9% 1,000 ML IV ONE (18:33)
[2019-01-26] MEDS ORDERED: HEPARIN SODIUM,PORCINE 5,000 UNIT/ML 1 ML VIAL IV ONE (18:40)
[2019-01-26] MEDS ORDERED: NITROGLYCERIN SL TABS 0.4 MG TAB SUBLINGUAL PRN (18:40)
[2019-01-26] MEDS ORDERED: ONDANSETRON 4 MG/2 ML VIAL IVP STA (18:42)
[2019-01-26] MEDS ORDERED: HEPARIN SOD,PORK IN 0.45% NACL 25,000 UNIT in 0.45% NACL 1 250ML.BAG IV SCH (18:45)
[2019-01-26] MEDS: SODIUM CHLORIDE 0.9% 1,000 ML IV SCH (19:14)
[2019-01-26] MEDS ORDERED: ACETAMINOPHEN TAB 325 MG TAB PO PRN (23:23)
[2019-01-26] MEDS ORDERED: tiZANidine 4 MG TAB PO PRN (23:45)
[2019-01-26] MEDS ORDERED: TESTOSTERONE CYPIONATE 200 MG/ML 1ML VIAL IM SCH (23:45)
[2019-01-27] MEDS: LISINOPRIL 10 MG TAB PO SCH ×2 (00:48→08:45)
[2019-01-27] MEDS ORDERED: CALCIUM CARBONATE 500 MG CHEWABLE PO PRN (03:56)
[2019-01-27 04:10] VITALS: RESP 18
[2019-01-27 06:15] LABS: Mean Platelet Volume 8.7; Platelet Count 214 k/uL (150-450)
[2019-01-27] MEDS ORDERED: LEVOTHYROXINE 50 MCG TAB PO SCH (06:30)
[2019-01-27 06:36] LABS: Cholesterol 155 mg/dL (<200); HDL Cholesterol 35 mg/dL (40-60); LDL Cholesterol,Calculated 101 mg/dL (0-99); Triglycerides 95 mg/dL (<150)
[2019-01-27] MEDS: SODIUM CHLORIDE 0.9% 1,000 ML IV SCH (08:46)
[2019-01-27] MEDS ORDERED: METOPROLOL TARTRATE 25 MG TAB PO SCH (09:00)
[2019-01-27] MEDS ORDERED: ASPIRIN 325 MG TAB PO SCH (09:00)
--- NOTE | 2019-01-27 11:25 | ECHOF ---
Referral Reason:chest pain MEASUREMENTS -------- HEIGHT: 188.0 cm WEIGHT: 113.4 kg BP: 130/76 RVIDd: 3.3 cm (< 3.3) IVSd: 1.3 cm (0.6 - 1.1) LVIDd: 4.0 cm (3.9 - 5.3) LVPWd: 1.2 cm (0.6 - 1.1) IVSs: 2.0 cm LVIDs: 3.1 cm LVPWs: 2.1 cm LA Diam: 4.1 cm (2.7 - 3.8) LAESV Index (A-L): 28.94 ml/m Ao Diam: 3.1 cm (2.0 - 3.7) AV Cusp: 2.3 cm (1.5 - 2.6) MV EXCURSION: 22.560 mm (> 18.000) MV EF SLOPE: 141 mm/s (70 - 150) EPSS: 0.3 cm MV E Blas: 1.06 m/s MV DecT: 196 ms MV A Blas: 0.84 m/s MV E/A Ratio: 1.25 FINDINGS -------- Sinus rhythm. This was a technically good study. The left ventricular size is normal. There is mild concentric left ventricular hypertrophy. Overa ll left ventricular systolic function is normal with, an EF between 60 - 65 %. The right ventricle is mildly enlarged. LA is severely dilated >40 ml/m2 The right atrium is normal in size. Interatrial and interventricular septum intact. The aortic valve is trileaflet and appears structurally normal. The mitral valve is normal. The tricuspid valve appears structurally normal. Trace/mild (physiologic) pulmonic regurgitation. The aortic root size is normal. Normal inferior vena cava with normal inspiratory collapse consistent with estimated right atrial pre ssure of 5 mmHg. There is no pericardial effusion. CONCLUSIONS -------- 1. Sinus rhythm. 2. This was a technically good study. 3. The left ventricular size is normal. 4. There is mild concentric left ventricular hypertrophy. 5. Overall left ventricular systolic function is normal with, an EF between 60 - 65 %. 6. The right ventricle is mildly enlarged. 7. LA is severely dilated >40 ml/m2 8. The right atrium is normal in size. 9. Interatrial and interventricular septum intact. 10. The aortic valve is trileaflet and appears structurally normal. 11. The mitral valve is normal. 12. The tricuspid valve appears structurally normal. 13. Trace/mild (physiologic) pulmonic regurgitation. 14. The aortic root size is normal. 15. Normal inferior vena cava with normal inspiratory collapse consistent with estimated right atrial pressure of 5 mmHg. 16. There is no pericardial effusion. SECURITY PATROL OFFICER: Rochelle Levine RDCS
--- NOTE | 2019-01-27 13:35 | CONS ---
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 He is a fairly active person. He does not smoke and does not consume alcohol on a regular basis. He came into the hospital with somewhat of nondescript symptoms. He was diagnosed to have hypertension and recently his lisinopril was increased from 5 to 10 mg daily and he felt his blood pressure was elevated. He went to the drugstore, got the blood pressure checked, pressure was high. He also had another check on the same pressure and it was in the 170 range. He felt concerned, felt some palpitations and came into the hospital. After arrival he has not had any ectopy. He maintained sinus rhythm. He is resting comfortably. He has no chest pain, shortness of breath or palpitation at this time. Blood pressure is 132/80. There is an element of anxiety as well. On questioning, he takes testosterone supplements and his hemoglobin is 18 and he may be over supplementing his testosterone as well. We discussed about this matter and I suggested to the patient that he should stop testosterone injections, talk to his primary care physician after 2 weeks, recheck the levels and probably use a lower dose, if any. This may also contribute to some hypertension as well. However, his blood pressure is well controlled at this time. I am recommending that we place him on a small dose of beta gracy, check thyroid function tests in view of palpitations and an echocardiogram to assess LV function. We will also repeat another EKG and if he has no further symptoms he can be discharged and a stress test can be performed as an outpatient. The patient really did not have any discomfort in the chest. Most of the issue was palpitations. He is resting comfortably without symptoms. PAST MEDICAL HISTORY: Past medical history is remarkable for recent diagnosed hypertension, gastroesophageal reflux disease, history of hypothyroidism on Synthroid. He also has some anxiety disorder and has had kidney stones in the past. ALLERGIES: He is allergic to CYMBALTA, GABAPENTIN. MEDICATIONS: Medications at home include levothyroxine 50 mcg daily, lisinopril 10 mg daily, testosterone injections and Zanaflex. PHYSICAL EXAMINATION: On examination, blood pressure is 132/80, pulse rate is 70 per minute regular. HEENT unremarkable. Fundus was not examined by me. Neck is supple. No JVD. I do not hear a carotid bruit. There is no thyromegaly. Heart exam reveals S1, S2 heard normally without a rub, murmur or gallop. Lungs are clear. Abdomen is soft, nontender. Lower extremities reveal normal pulses. No edema. Central nervous system is normal. EKG revealed sinus mechanism, sinus tachycardia, no acute changes. IMPRESSION: 1. Palpitations of unclear etiology. 2. Labile, but controlled hypertension at this time. 3. No evidence to suggest any chest discomfort. 4. Probable over supplementation of testosterone hormone. RECOMMENDATIONS: I am recommending that we discontinue his aspirin. Add a small dose of metoprolol tartrate 25 mg daily to his regimen. I am advising that he should stop testosterone, talk to his PCP after 2 weeks, recheck the levels and then restart. Continue lisinopril 10 mg daily. I will see the patient in 2 weeks as an outpatient and consider stress testing. I discussed my thoughts in detail with the patient. He can be discharged later on today if the repeat EKG looks good and he has no symptoms after he ambulates. Thank you very much for the consult. GEORGES / ZAID: [id number] /
[2019-01-27 15:50] VITALS: BP 133/74; PULSE 60; TEMP 98.3
[2019-01-27 16:22] LABS: Appearance,Urine Clear (Clear); Bilirubin,Urine Negative (Negative); Blood,Urine Negative (Negative); Color,Urine Yellow; Glucose,Urine (UA) Negative (Negative); Ketones,Urine Negative (Negative); Leukocyte Esterase,Urine Negative (Negative); Nitrite,Urine Negative (Negative); Protein,Urine Negative (Negative); Specific Gravity,Urine 1.018 (1.001-1.035); Urobilinogen,Urine <2.0 mg/dL (<2.0)
--- NOTE | 2019-01-27 16:25 | P.HPIM ---
History of Present Illness H&P Date: 01/27/19 Chief Complaint: Palpitations, high BP This a 39-year-old gentleman admitted with complaints of shakiness, palpitations, high blood pressure, T-max of 99.1 on arrival to the ER, in a patient with history of polycythemia vera, hypertension, on oral supplementation of testosterone and multiple other medical issues. Reports an isolated event of nausea times one, no emesis, no diarrhea. WBC on admission 16.7. Denies abdominal pain. Reports he took his blood pressure twice, once at [facility] and once at [facility] with systolic blood pressure 170/114 noted. Patient reported to the office who referred him to the emergency room. Patient was initially started on lisinopril 1 month ago, followed up with PCP on Thursday and dose was increased. Hemoglobin on admission 18.1, systolic blood pressures 149/91-170/76. EKG reporting sinus tachycardia with heart rate in the low 100s . Troponins less than 0.012, 0.031, 0.013. Cholesterol 155, LDL 101 HDL 35 . TSH 1.15.Patient admitted in observation unit, evaluated by cardiology. Outpatient stress test recommended. Echo performed reporting normal LV function, EF 60-65%, severely dilated LA. Denies chest pain, palpitations or shortness of breath at this time. Review of Systems ROS Statement: Those systems with pertinent positive or pertinent negative responses have been documented in the HPI. ROS Other: All systems not noted in ROS Statement are negative. Past Medical History Past Medical History: GERD/Reflux, Hypertension, Thyroid Disorder Additional Past Medical History / Comment(s): KIDNEY STONE,CHRONIC BACK PAIN, History of Any Multi-Drug Resistant Organisms: None Reported Past Surgical History: Appendectomy, Cholecystectomy Additional Past Surgical History / Comment(s): PAIN PROCEDURES Past Anesthesia/Blood Transfusion Reactions: Previous Problems w/ Anesthesia Additional Past Anesthesia/Blood Transfusion Reaction / Comment(s): STATES "NOVOCAINE DOESN'T WORK ON ME" "TAKES MORE THAN NORMAL TO PUT ME OUT" Past Psychological History: No Psychological Hx Reported Additional Psychological History / Comment(s): . Smoking Status: Never smoker Past Alcohol Use History: None Reported Past Drug Use History: None Reported - Past Family History Mother History Unknown: Yes Family Medical History: Dementia Father Additional Family Medical History / Comment(s): SMOKER. Medications and Allergies Home Medications Medication Instructions Recorded Confirmed Type Levothyroxine Sodium [Synthroid] 50 mcg PO DAILY 03/30/14 01/26/19 History oxyCODONE HCL [OxyIR] 5 mg PO BID PRN 11/08/17 01/26/19 History tiZANidine HCL [Zanaflex] 8 mg PO BID PRN 01/13/19 01/26/19 History Lisinopril [Zestril] 10 mg PO DAILY 01/26/19 01/26/19 History Testosterone Cypionate 125 mg IM Q72H 01/26/19 01/26/19 History [Depo-Testosterone] Amoxic-Pot Clav 875-125Mg 1 tab PO Q12HR #10 tablet 01/27/19 Rx [Augmentin 875-125] Aspirin EC [Ecotrin Low Dose] 81 mg PO DAILY #30 tablet. 01/27/19 Rx Allergies Allergy/AdvReac Type Severity Reaction Status Date / Time benzalkonium chloride Allergy Severe Swelling Verified 01/26/19 19:01 duloxetine HCl AdvReac Severe severe Verified 01/26/19 19:01 [From Cymbalta] headache gabapentin [From Neurontin] AdvReac HEADACHE Verified 01/26/19 19:01 Physical Exam Vitals: Vital Signs Temp Pulse Pulse Pulse Resp BP BP 01/27/19 11:11 98.8 F 59 L 18 132/81 01/27/19 07:10 98.7 F 70 18 01/27/19 04:09 98.3 F 68 18 130/76 01/27/19 03:00 76 17 01/27/19 00:00 77 17 01/26/19 23:37 98.3 F 79 16 146/75 01/26/19 20:24 170/76 01/26/19 20:00 98.7 F 99 17 149/91 01/26/19 19:20 98.8 F 99 18 138/87 01/26/19 18:56 99 18 01/26/19 18:31 99.1 F 105 H 18 134/88 01/26/19 17:48 111 H 18 136/85 01/26/19 17:47 92 01/26/19 17:12 99.0 F 107 H 20 149/81 BP Pulse Ox 01/27/19 11:11 96 01/27/19 07:10 132/82 97 01/27/19 04:09 95 01/27/19 03:00 01/27/19 00:00 01/26/19 23:37 95 01/26/19 20:24 01/26/19 20:00 96 01/26/19 19:20 96 01/26/19 18:56 01/26/19 18:31 96 01/26/19 17:48 96 01/26/19 17:47 01/26/19 17:12 97 Intake and Output 01/26/19 01/27/19 01/27/19 22:59 06:59 14:59 Intake Total 132.135 Balance 132.135 Intake: Intake, IV Titration 132.135 Amount Heparin Sod,Pork in 0.45% 132.135 NaCl 25,000 unit In 0.45 % NaCl 1 250ml.bag @ 8.8 UNITS/KG/HR 9.979 mls/hr IV .Q24H PANKAJ Rx#: [id number] Other: Voiding Method Toilet Toilet Toilet # Voids 1 1 1 Weight 113.398 kg PHYSICAL EXAM: VITAL SIGNS: As above GENERAL: Sitting up in bed, no acute distress HEENT: Conjunctivae normal. eyes normal. Oral mucosa moist NECK: No JVD. No thyroid enlargement. No LNs CARDIOVASCULAR: S1, S2 muffled. No murmur RESPIRATION: Unlabored, Breath sounds clear. No rhonchi or crackles. No bronchial breathing. ABDOMEN: Soft, nontender . No guarding. no masses palpable. Bowel sounds heard. LEGS: No edema. no swelling PSYCHIATRY: Alert and oriented -3, mood and affect normal. NERVOUS SYSTEM: Cranial N 2-12 grossly normal. Moves all 4 limbs. Diffuse weakness No focal deficits. Skin: no ulcer no rash Joints: No active swelling. No inflammation. Results CBC & Chem 7: 01/27/19 05:28 01/26/19 17:47 Labs: Abnormal Lab Results - Last 24 Hours (Table) 01/26/19 01/27/19 01/27/19 Range/Units 17:47 00:28 05:28 WBC 16.7 H (3.8-10.6) k/uL RBC 5.99 H (4.30-5.90) m/uL Hgb 18.1 H (13.0-17.5) gm/dL Hct 54.8 H (39.0-53.0) % Neutrophils # 13.8 H (1.3-7.7) k/uL Monocytes # 1.1 H (0-1.0) k/uL APTT 30.4 H (22.0-30.0) sec LDL Cholesterol, Calc 101 H (0-99) mg/dL HDL Cholesterol 35 L (40-60) mg/dL 01/27/19 Range/Units 05:28 WBC (3.8-10.6) k/uL RBC (4.30-5.90) m/uL Hgb (13.0-17.5) gm/dL Hct (39.0-53.0) % Neutrophils # (1.3-7.7) k/uL Monocytes # (0-1.0) k/uL APTT 41.6 H (22.0-30.0) sec LDL Cholesterol, Calc (0-99) mg/dL HDL Cholesterol (40-60) mg/dL Thrombosis Risk Factor Assmnt - Choose All That Apply Each Factor Represents 1 point: Age 41-60 years, Obesity (BMI >25) Thrombosis Risk Factor Assessment Total Risk Factor Score: 2 Thrombosis Risk Factor Assessment Level: Low Risk Assessment and Plan Assessment: -Hypertension, palpitations, in a patient with history of polycythemia vera, hemoglobin 18.1, on oral testosterone. -Possible acute UTI, culture pending -Gastroesophageal reflux disease -Chronic back pain Plan: Continue on current medication regime ,monitoring and symptomatic treatment. Therapeutic phlebotomy ordered by Dr. Loving. Urine culture ordered. Cardiology recommending metoprolol and holding of testosterone at discharge. Patient discussed further with Dr. Loving. Patient had previous experience with metoprolol, unable to tolerate. Also states he is not able to stop his testosterone related to significant joint pain. Patient requesting to see Dr. De La Cruz in the office. Potential discharge this afternoon pending repeat EKG and clearance from cardiology. The impression and plan of care has been dictated as directed. : I performed a history and examination of this patient, discussed the same with the dictator. I agree with the dictator's note ,documented as a scribe. Any additional findings or plans will be noted.
--- NOTE | 2019-01-27 16:36 | P.DS ---
Providers Date of admission: 01/26/19 18:46 Expected date of discharge: 01/27/19 Attending physician: Ryan Loving Consults: 01/26/19 18:41 Consult Physician Urgent Consulting Provider: Bayron Alford Consult Reason/Comments: chest pain Do you want consulting provider notified?: Yes Primary care physician: [facility] Course: Final Diagnoses: -Hypertension, palpitations, in a patient with history of polycythemia vera, hemoglobin 18.1, on oral testosterone. Status post therapeutic phlebotomy -Possible acute UTI, culture pending -Gastroesophageal reflux disease -Chronic back pain Hospital course:This a 39-year-old gentleman admitted with complaints of shakiness, palpitations, high blood pressure, T-max of 99.1 on arrival to the ER, in a patient with history of polycythemia vera, hypertension, on oral supplementation of testosterone and multiple other medical issues. Reports an isolated event of nausea times one, no emesis, no diarrhea. WBC on admission 16.7. Denies abdominal pain. Reports he took his blood pressure twice, once at [facility] and once at [facility] with systolic blood pressure 170/114 noted. Patient reported to the office who referred him to the emergency room. Patient was initially started on lisinopril 1 month ago, followed up with PCP on Thursday and dose was increased. Hemoglobin on admission 18.1, systolic blood pressures 149 /91-170/76. EKG reporting sinus tachycardia with heart rate in the low 100s . Troponins less than 0.012, 0.031, 0.013. Cholesterol 155, LDL 101 HDL 35 . TSH 1.15.Patient admitted in observation unit, evaluated by cardiology. Outpatient stress test recommended. Echo performed reporting normal LV function, EF 60- 65%, severely dilated LA. Denies chest pain, palpitations or shortness of breath at this time. Therapeutic phlebotomy ordered by Dr. Loving. Urine culture pending. Cardiology recommending metoprolol and holding of testosterone at discharge. Patient discussed further with Dr. Loving. Patient had previous experience with metoprolol, unable to tolerate. Also states he is not able to stop his testosterone related to significant joint pain. Patient requesting to see Dr. De La Cruz in the office. Significant clinical improvement. Patient is being discharged home today after therapeutic phlebotomy, post procedure stable orthostatic vital signs, and pending cardiology clearance in a stable condition with guarded prognosis. Patient to follow-up with Dr. Loving tomorrow regarding urine culture results. EXAM: GENERAL: A& O X3, no acute distress CARDIOVASCULAR: S1, S2 muffled. No murmur RESPIRATION: Unlabored, Breath sounds clear. No rhonchi or crackles. ABDOMEN: Soft, nontender . No guarding. no masses palpable. Bowel sounds heard. NERVOUS SYSTEM: No focal deficits. The impression and plan of care has been dictated as directed. : I performed a history and examination of this patient, discussed the same with the dictator. I agree with the dictator's note ,documented as a scribe. Any additional findings or plans will be noted. Time taken: 35 minutes Patient Condition at Discharge: Stable Plan - Discharge Summary Discharge Rx Participant: Yes New Discharge Prescriptions: New Aspirin EC [Ecotrin Low Dose] 81 mg PO DAILY #30 tablet. Amoxic-Pot Clav 875-125Mg [Augmentin 875-125] 1 tab PO Q12HR #10 tablet Continue Levothyroxine Sodium [Synthroid] 50 mcg PO DAILY oxyCODONE HCL [OxyIR] 5 mg PO BID PRN PRN Reason: Pain tiZANidine HCL [Zanaflex] 8 mg PO BID PRN PRN Reason: Pain Lisinopril [Zestril] 10 mg PO DAILY Testosterone Cypionate [Depo-Testosterone] 125 mg IM Q72H Discharge Medication List Levothyroxine Sodium [Synthroid] 50 mcg PO DAILY 03/30/14 [History] oxyCODONE HCL [OxyIR] 5 mg PO BID PRN 11/08/17 [History] tiZANidine HCL [Zanaflex] 8 mg PO BID PRN 01/13/19 [History] Lisinopril [Zestril] 10 mg PO DAILY 01/26/19 [History] Testosterone Cypionate [Depo-Testosterone] 125 mg IM Q72H 01/26/19 [History] Amoxic-Pot Clav 875-125Mg [Augmentin 875-125] 1 tab PO Q12HR #10 tablet 01/27/19 [Rx] Aspirin EC [Ecotrin Low Dose] 81 mg PO DAILY #30 tablet. 01/27/19 [Rx] Follow up Appointment(s)/Referral(s): Bayron Alford MD [STAFF PHYSICIAN] - 1 Week (outpatient stress) Ryan Loving Jr, DO [Primary Care Provider] - 01/28/19 11:15 am (follow up appointment with Dr. Loving to go over urinalysis and culture results.) Ambulatory/Diagnostic Orders: Complete Blood Count w/diff [LAB.AMB] Time Frame: 3 Days, Location: None Selected Patient Instructions/Handouts: Hypertension (DC), Polycythemia Vera (DC) Activity/Diet/Wound Care/Special Instructions: Pending cardiology clearance .UA/CX collected, results to Dr. Loving Discharge Disposition: HOME SELF-CARE
== END 2019-01-27 16:15 | disposition home or self-care (01) ==
LOC: EC 17:05 → INTOOBSV 18:46 → 1SOBS 18:46 → OBSVTOIN 18:46 → UNDODISIN 01-27 16:15
PROVIDERS: ADMIT Family Medicine; ATTEND Family Medicine
DX: R07.89 Other chest pain (principal); R00.2 Palpitations; I10 Essential (primary) hypertension; D45 Polycythemia vera; E03.9 Hypothyroidism, unspecified; K21.9 Gastro-esophageal reflux disease without esophagitis; G89.29 Other chronic pain; M54.9 Dorsalgia, unspecified; R11.0 Nausea; R00.0 Tachycardia, unspecified; E66.9 Obesity, unspecified; Z68.32 Body mass index [BMI] 32.0-32.9, adult; F41.9 Anxiety disorder, unspecified; Z79.890 Hormone replacement therapy; Z79.899 Other long term (current) drug therapy; Z79.891 Long term (current) use of opiate analgesic; Z88.8 Allergy status to other drugs, medicaments and biological substances; Z90.49 Acquired absence of other specified parts of digestive tract; Z87.442 Personal history of urinary calculi; Z81.2 Family history of tobacco abuse and dependence; Z81.8 Family history of other mental and behavioral disorders
CPT/HCPCS: 96366 ×2; 96372; 96376; 96361; 96365; 96375; 99285; 36415; 93005; 93306; 80061; 80053; 84443; 83690; 83735; 84484 ×2; 85025; 85049; 85610; 85730 ×2; 81003; 87086; 71046; 99195; G0378 ×2; J1071; J1644 ×2; J2405; 96374

== ENCOUNTER → 2019-02-01 | Day surgery (SDC) | payer OTHER ==
[2019-02-01 07:17] VITALS: RESP 18; TEMP 97.6
--- NOTE | 2019-02-01 08:14 | P.PCN ---
Date of Procedure: 02/01/19 Procedure(s) Performed: Procedure= 1-bilateral sacral iliac joints steroid injection under fluoroscopy guidance. 2-trigger point injections thoracic paravertebral muscles total of 2 trigger points injected 1 on the right side and 1 on the left side. Preoperative diagnosis= 1-sacroiliitis 2-myofascial pain syndrome thoracic area. 3-lumbar spondylosis with lumbar facet arthropathy . Postoperative diagnosis= same as preoperative diagnosis Complication = none Condition= stable Anesthesia= moderate sedation with intravenous Versed 2 mg , and fentanyl 100 micrograms and local infiltration with lidocaine 1% 4 mL Indication for the procedure= patient complaining of low back pain , examination was positive for severe tenderness over the sacroiliac joints bilaterally and patient diagnosed with sacroiliitis, for this reason he/ she was good candidate for sacroiliac joint steroid injection. Also exam showed patient had multiple trigger points in the thoracic paravertebral muscles area for this reason it was a good candidate to have trigger point injections thoracic paravertebral muscles Description of the procedure= procedure risk and benefits discussed with the patient, including but not limited, risk of infection and bleeding, and ALLERGIC reaction to the medication and not complete pain relief and patient agreed with the preceding patient taken to the operating room, placed in prone position or standard monitors applied to the patient then after induction of anesthesia back prepped with chlorhexidine 3 times , Then under strict sterile technique, first I did the right sacroiliac joint the which was identified under fluoroscopy guidance been local infiltration of the skin and subcu interstitial with lidocaine 1% then 22-gauge Quincke Needle advanced slowly under fluoroscopy and placed in the right sacroiliac joint ne edle placement confirmed with AP and oblique and lateral view and after appropriate needle placement confirmed and after negative aspiration, or heme , then Ropivacaine 0.5% 3 mL, and 40 mg of Depo-Medrol mixed together and injected in the right sacroiliac joint after negative aspiration patient tolerated the procedure well without any complication. Then the left sacroiliac joint steroid injection done under strict sterile technique local infiltration of the skin and subcu interstitial at the location of the left sacroiliac joint then a 22-gauge Quincke Needle advanced slowly under fluoroscopy time placed in the left sacroiliac joint, needle placement confirmed with AP and oblique and lateral view then after appropriate needle placement confirmed and after negative aspiration ,0.5% Ropivacaine 3 mL and 40 mg of Depo-Medrol injected in the left sacroiliac joint after negative aspiration then the trigger points injection done sterile technique, the thoracic area was prepped with Betadine 3, been using 25-gauge needle , 1 trigger point injected on the right side thoracic paravertebral muscles 0.5% ropivacaine for male injected on the right side thoracic paravertebral muscles, and the same time for the left side thoracic paravertebral muscles, injection done after negative aspiration and there was no paresthesia during the injection. Patient tolerated the procedure well without any complications.
--- NOTE | 2019-02-01 08:41 | FL ---
Fluoroscopy HISTORY: Pain 5 seconds fluoroscopy time supplied to the referring clinician. 2 intraoperative C-arm images docume nt the procedure. See dictated report from anesthesia.
[2019-02-01 08:57] VITALS: BP 98/57; PULSE 55
== END | disposition home or self-care (01) ==
LOC: ORPAIN 07:04
PROVIDERS: ATTEND Specialist
DX: M46.1 Sacroiliitis, not elsewhere classified (principal); M79.18 Myalgia, other site; M47.816 Spondylosis without myelopathy or radiculopathy, lumbar region; I10 Essential (primary) hypertension; Z88.8 Allergy status to other drugs, medicaments and biological substances
CPT/HCPCS: 20552; 27096; J2250; J1030; J2405; J3010; 99152

== ENCOUNTER → 2019-02-17 | Outpatient (CLI) | payer OTHER ==
[2019-02-17 12:44] VITALS: RESP 16
[2019-02-17 12:57] VITALS: BP 119/74; PULSE 80
--- NOTE | 2019-02-17 13:13 | P.PAINPG ---
Subjective Progress Note Date: 02/17/19 This is follow-up visit for this patient with a history of severe and chronic low back pain secondary to , lumbar spondylosis with facet arthropathy, and bilateral sacroiliitis We have done interventional pain procedures radiofrequency ablation of the medial branch lumbar area, which improved his low back pain Recently we've done bilateral sacroiliac joint steroid injection, 2 and he reported that he had significant improvement in his low back pain more than 50% after each injection Patients currently on oxycodone 5 mg 2 tablets once or twice a day, Zanaflex 8 mg twice a day Patient denies any side effects of the medication, denies excessive drowsiness or sleepiness, denies suicidal ideation, and reports that the current pain medication is helping to control the pain ,and improve activity of daily living Patient denies any motor or sensory deficit , patient denies any fever or night sweats, denies any change in the bowel movements or urination Physical Examinations : -Constitutional : Cooperative , not in acute distress . -HEENT : nech ; supple , no Lymphadenopathy , no Thyromegaly , normal thyroid size . eyes : no ptosis , no icterus, no photophobia . - neurologic: Cranial nerve II to XII intact , no focal neurological d effecit . - Psychatric: alert , oriented X 3 , appropriate affect , intact judgment and insight . - Lymphatic : no Lymphadenopathy . - Musculoskeltal : exams of the cervical spine = motor strength normal bilateral upper extremities facet loading test cervical area positive. Exams of the thoracic spine= multiple trigger points in the thoracic paravertebral muscles around T10 to T12 bilaterally Exams of the Lumber spine= moter stegnth lower extremities ,thigh and legs 5/5 Right side , 5/5 Left side deep tendon reflexes : normal Knee Jerk , normal ankle Jerk positive lumber facet Loading Test Range of motion of the lumbar spine Flexion 30 degrees, extension 10 degrees strait leg raising test , positive at 60 degree Fabere test positive RT and positive LT . Sever tenderness over the Sacroiliac joint on the R and L sides Gaenslen test positive bilaterally. Seated flexion test positive bilaterally. Assessment and plan = Chronic low back pain secondary to , lumbar spondylosis with facet arthropathy without myelopathy , bilateral sacroiliitis, myofascial pain syndrome thoracic area Patient had positive results, more than 50% improvement in his low back pain after bilateral sacroiliac joint steroid injection Myofascial pain syndrome thoracic paravertebral muscles. Bilateral sacroiliitis. chronic and current use of high-risk medication (Opioids). The patient was counseled about risk of opioid use, psychological risk associated with opioids and was orally counseled to not overuse , divert,or sell dictations to take medications as prescribed only , and to restore medication in safe location , the patient counseled against driving while using narcotic medications, and also not to use alcohol or any illicit recreational drugs, patient's verbalized understanding that the lack of compliance will result in failure to renew narcotic prescription and possible discharge from the clinic - diagnoses, prognosis, and treatment options including but not limited to physical therapy, surgical interventions, interventional therapies , and medication management including narcotics and adjuvant medication were discussed with the patient and all the questions answered MAPS reviewed and it was apropriate Prescription refill for Zanaflex 8 mg 12 hours dispense 60 with one refill, oxycodone 5 mg 2 tablets twice a day when necessary dispensed 60 with o ne refill. Patient could benefit from radiofrequency ablation of the sacroiliac joint , and with the right side first then left-sided O under fluoroscopy guidance and the same time he could benefit from trigger point injection thoracic paravertebral muscles, procedure risks and benefits and alternatives discussed with the patient he agreed with the procedure. Objective - Vital Signs Vital signs: Vital Signs Temp Pulse 80 02/17/19 12:36 Resp 16 02/17/19 12:36 BP 119/74 02/17/19 12:36 Pulse Ox 96 02/17/19 12:36 Intake & Output 02/16/19 02/17/19 02/17/19 18:59 06:59 18:59 Weight 109.316 kg PQRS Measure Charge Sheet Measure #130: Documentation of Current Meds in Medical Chart: Patient's medications documented in chart Measure #226: Tobacco Use: Screen & Cessation Intervention: Pt not a tobacco user Measure #111: Pneumonia Vaccination: Pneumococcal vaccine NOT administered or previously given Measure #47: Advance Care Plan: Advance care planning discussed & documented, pt chose/unable to give Measure #412: Opioid Treatment Agreement: Documented signed opioid trtmnt agreemnt min once during opioid trtmnt Measure #408: Opioid Therapy Follow-up Evaluation: Patient had f/u eval minimum every 3 months during opioid therapy Measure #317: Preventitive Care & Scrn High Bld Press & F/U: Normal blood pressure, f/u not required Measure #128: Body Mass Index (BMI) Screening & Follow-up: BMI documented ABOVE normal parameters - f/u documented Measure #131: Pain Assessment & Follow-up: Pain positive & plan documented, Follow-up scheduled Measure #431: Unhealthy Alcohol Use Preventative Care & Scrn: Patient not identified as an unhealthy alcohol user PQRS Narrative: Smoking Status Never smoker Do You Want the Pneumonia No Vaccine AT THIS TIME? Narcotic Agreement Date Signed 09/21/17 Blood Pressure 119/74 Pain Intensity [Bilateral 4 Lower Back] Scale Used Numeric (1 - 10) Hx Alcohol Use (MH) No Home Medications: Ambulatory Orders Levothyroxine Sodium [Synthroid] 50 mcg PO DAILY 03/30/14 oxyCODONE HCL [OxyIR] 2 tab PO DAILY PRN 11/08/17 tiZANidine HCL [Zanaflex] 8 mg PO BID PRN 01/13/19 Lisinopril [Zestril] 10 mg PO BID 01/26/19 Testosterone Cypionate [Depo-Testosterone] 125 mg IM Q72H 01/26/19 Aspirin EC [Ecotrin Low Dose] 81 mg PO DAILY #30 tablet. 01/27/19 Controlled Substance Measures - Controlled Substance Measures Is patient prescribed a controlled substance at discharge?: Yes When asked, does pt state using other controlled substances?: No If prescribed controlled substance>3 days was MAPS reviewed?: Yes If Rx opioid, was Start Talking consent form obtained?: Yes If opioid is for acute pain is fill amount 7 days or less?: No Was information provided regarding opioid addiction?: Yes
== END | disposition home or self-care (01) ==
LOC: PNWHC3 12:15
PROVIDERS: ATTEND Specialist
DX: G89.29 Other chronic pain (principal); M47.816 Spondylosis without myelopathy or radiculopathy, lumbar region; M46.86 Other specified inflammatory spondylopathies, lumbar region; M46.1 Sacroiliitis, not elsewhere classified; M79.18 Myalgia, other site; F11.90 Opioid use, unspecified, uncomplicated; Z79.899 Other long term (current) drug therapy
CPT/HCPCS: 99211

== ENCOUNTER 2019-03-16 23:31 | Emergency (ER) | payer OTHER ==
[2019-03-17] MEDS ORDERED: SODIUM CHLORIDE 0.9% 1,000 ML IV STA (00:04)
[2019-03-17] MEDS ORDERED: KETOROLAC 30 MG/ML 1 ML VIAL IVP STA (00:04)
[2019-03-17] MEDS ORDERED: METOCLOPRAMIDE 5 MG/ML 2 ML VIAL IVP STA (00:04)
--- NOTE | 2019-03-17 00:08 | ED ---
General Adult HPI - General Chief complaint: Skin/Abscess/Foreign Body Stated complaint: side pain/swelling Time Seen by Provider: 03/16/19 23:56 Source: patient, RN notes reviewed Mode of arrival: ambulatory Limitations: no limitations - History of Present Illness Initial comments: Patient is a pleasant 39-year-old male presenting to the emergency Department with complaints of discomfort in the right flank. Onset of symptoms was yesterday. Symptoms worsened prior to arrival. Patient feels like right-sided swollen. Patient states he does have history of similar symptoms multiple times previously associated with kidney stones. Patient has not previously felt like his right side was swollen however. No rash. No fevers. Patient may have a m inimal amount of dysuria. Patient does have nausea that does persist. Discomfort is moderate to severe at this time. - Related Data Home Medications Medication Instructions Recorded Confirmed Levothyroxine Sodium [Synthroid] 50 mcg PO DAILY 03/30/14 03/16/19 oxyCODONE HCL [OxyIR] 10 mg PO BID PRN 11/08/17 03/16/19 tiZANidine HCL [Zanaflex] 8 mg PO BID PRN 01/13/19 03/16/19 Lisinopril [Zestril] 10 mg PO BID 01/26/19 03/16/19 Testosterone Cypionate 130 mg IM Q72H 01/26/19 03/16/19 [Depo-Testosterone] Previous Rx's Medication Instructions Recorded Aspirin EC [Ecotrin Low Dose] 81 mg PO DAILY #30 tablet. 01/27/19 Allergies Allergy/AdvReac Type Severity Reaction Status Date / Time benzalkonium chloride Allergy Severe Swelling Verified 03/16/19 23:58 duloxetine HCl AdvReac Severe severe Verified 03/16/19 23:58 [From Cymbalta] headache gabapentin [From Neurontin] AdvReac HEADACHE Verified 03/16/19 23:58 Review of Systems ROS Statement: Those systems with pertinent positive or pertinent negative responses have been documented in the HPI. ROS Other: All systems not noted in ROS Statement are negative. Constitutional: Denies: fever Eyes: Denies: eye pain ENT: Denies: ear pain Respiratory: Denies: cough Cardiovascular: Denies: chest pain Endocrine: Denies: fatigue Gastrointestinal: Reports: as per HPI, abdominal pain, nausea. Denies: diarrhea, constipation Genitourinary: Reports: dysuria. Denies: urgency, hematuria Musculoskeletal: Reports: as per HPI (Right flank) Skin: Denies: rash Neurological: Denies: headache Past Medical History Past Medical History: GERD/Reflux, Hypertension, Thyroid Disorder Additional Past Medical History / Comment(s): KIDNEY STONE,CHRONIC BACK PAIN, History of Any Multi-Drug Resistant Organisms: None Reported Past Surgical History: Appendectomy, Cholecystectomy Additional Past Surgical History / Comment(s): PAIN PROCEDURES, Past Anesthesia/Blood Transfusion Reactions: Previous Problems w/ Anesthesia Additional Past Anesthesia/Blood Transfusion Reaction / Comment(s): STATES "NOVOCAINE DOESN'T WORK ON ME" "TAKES MORE THAN NORMAL TO PUT ME OUT" Past Psychological History: No Psychological Hx Reported Smoking Status: Never smoker Past Alcohol Use History: None Reported Past Drug Use History: None Reported - Past Family History Mother History Unknown: Yes Family Medical History: Dementia Father Additional Family Medical History / Comment(s): SMOKER. General Exam Limitations: no limitations General appearance: alert, in no apparent distress Head exam: Present: atraumatic Eye exam: Present: normal appearance Neck exam: Present: normal inspection Respiratory exam: Present: normal lung sounds bilaterally Cardiovascular Exam: Present: regular rate, normal rhythm Expanded Peripheral pulses: 2+: Radial (R), Radial (L), Posterior Tibialis (R), Posterior Tibialis (L), Dorsalis Pedis (R), Dorsalis Pedis (L) GI/Abdominal exam: Present: soft, normal bowel sounds. Absent: distended, tenderness, guarding, rebound, rigid, pulsatile mass Extremities exam: Present: normal inspection. Absent: pedal edema, calf tenderness Back exam: Present: full ROM (Without discomfort), tenderness (Mild tenderness right posterior flank) Neurological exam: Present: alert Psychiatric exam: Present: normal affect, normal mood Skin exam: Present: normal color Course Vital Signs 03/16/19 23:38 Temperature 98.3 F Pulse Rate 67 Respiratory 18 Rate Blood Pressure 146/87 O2 Sat by Pulse 100 Oximetry Medical Decision Making - Medical Decision Making Patient reevaluated and resting comfortably in bed, symptom-free at this time. Patient updated on results and need for follow-up, patient updated on need for follow-up regarding mild elevation of lipase as well. - Lab Data Result diagrams: 03/17/19 00:08 03/17/19 00:08 Lab Results 03/17/19 03/17/19 03/17/19 Range/Units 00:08 00:08 00:08 WBC 8.2 (3.8-10.6) k/uL RBC 5.25 (4.30-5.90) m/uL Hgb 15.8 (13.0-17.5) gm/dL Hct 47.1 (39.0-53.0) % MCV 89.7 (80.0-100.0) fL MCH 30.0 (25.0-35.0) pg MCHC 33.5 (31.0-37.0) g/dL RDW 15.0 (11.5-15.5) % Plt Count 208 (150-450) k/uL Neutrophils % 62 % Lymphocytes % 25 % Monocytes % 8 % Eosinophils % 3 % Basophils % 1 % Neutrophils # 5.1 (1.3-7.7) k/uL Lymphocytes # 2.0 (1.0-4.8) k/uL Monocytes # 0.6 (0-1.0) k/uL Eosinophils # 0.3 (0-0.7) k/uL Basophils # 0.0 (0-0.2) k/uL PT 10.7 (9.0-12.0) sec INR 1.0 (<1.2) APTT 27.2 (22.0-30.0) sec Sodium 139 (137-145) mmol/L Potassium 4.0 (3.5-5.1) mmol/L Chloride 104 (98-107) mmol/L Carbon Dioxide 26 (22-30) mmol/L Anion Gap 9 mmol/L BUN 13 (9-20) mg/dL Creatinine 1.18 (0.66-1.25) mg/dL Est GFR (CKD-EPI)AfAm 88 (>60 ml/min/1.73 sqM) Est GFR (CKD-EPI)NonAf 76 (>60 ml/min/1.73 sqM) Glucose 91 (74-99) mg/dL Calcium 9.2 (8.4-10.2) mg/dL Total Bilirubin 0.4 (0.2-1.3) mg/dL AST 26 (17-59) U/L ALT 27 (21-72) U/L Alkaline Phosphatase 58 (38-126) U/L Total Protein 7.1 (6.3-8.2) g/dL Albumin 4.4 (3.5-5.0) g/dL Amylase 50 (30-110) U/L Lipase 412 H (23-300) U/L Urine Color Urine Appearance (Clear) Urine pH (5.0-8.0) Ur Specific [place] (1.001-1.035) Urine Protein (Negative) Urine Glucose (UA) (Negative) Urine Ketones (Negative) Urine Blood (Negative) Urine Nitrite (Negative) Urine Bilirubin (Negative) Urine Urobilinogen (<2.0) mg/dL Ur Leukocyte Esterase (Negative) Urine RBC (0-5) /hpf Amorphous Sediment (None) /hpf Urine Mucus (None) /hpf 03/17/19 Range/Units 00:08 WBC (3.8-10.6) k/uL RBC (4.30-5.90) m/uL Hgb (13.0-17.5) gm/dL Hct (39.0-53.0) % MCV (80.0-100.0) fL MCH (25.0-35.0) pg MCHC (31.0-37.0) g/dL RDW (11.5-15.5) % Plt Count (150-450) k/uL Neutrophils % % Lymphocytes % % Monocytes % % Eosinophils % % Basophils % % Neutrophils # (1.3-7.7) k/uL Lymphocytes # (1.0-4.8) k/uL Monocytes # (0-1.0) k/uL Eosinophils # (0-0.7) k/uL Basophils # (0-0.2) k/uL PT (9.0-12.0) sec INR (<1.2) APTT (22.0-30.0) sec Sodium (137-145) mmol/L Potassium (3.5-5.1) mmol/L Chloride (98-107) mmol/L Carbon Dioxide (22-30) mmol/L Anion Gap mmol/L BUN (9-20) mg/dL Creatinine (0.66-1.25) mg/dL Est GFR (CKD-EPI)AfAm (>60 ml/min/1.73 sqM) Est GFR (CKD-EPI)NonAf (>60 ml/min/1.73 sqM) Glucose (74-99) mg/dL Calcium (8.4-10.2) mg/dL Total Bilirubin (0.2-1.3) mg/dL AST (17-59) U/L ALT (21-72) U/L Alkaline Phosphatase (38-126) U/L Total Protein (6.3-8.2) g/dL Albumin (3.5-5.0) g/dL Amylase (30-110) U/L Lipase (23-300) U/L Urine Color Yellow Urine Appearance Cloudy (Clear) Urine pH 7.0 (5.0-8.0) Ur Specific [place] 1.024 (1.001-1.035) Urine Protein Negative (Negative) Urine Glucose (UA) Negative (Negative) Urine Ketones Trace H (Negative) Urine Blood Negative (Negative) Urine Nitrite Negative (Negative) Urine Bilirubin Negative (Negative) Urine Urobilinogen <2.0 (<2.0) mg/dL Ur Leukocyte Esterase Negative (Negative) Urine RBC 4 (0-5) /hpf Amorphous Sediment Rare H (None) /hpf Urine Mucus Rare H (None) /hpf - Radiology Data Radiology results: report reviewed (Computed tomography scan of the abdomen and pelvis shows nonobstructing renal stones.), image reviewed (KUB shows no acute process) Disposition Clinical Impression: Flank pain Disposition: HOME SELF-CARE Condition: Stable Instructions (If sedation given, give patient instructions): Flank Pain (ED) Additional Instructions: Please do follow-up with primary care physician in the next day or 2 for recheck. Return for uncontrolled pain, fever, vomiting, swelling, persistent symptoms or other concerns. Is patient prescribed a controlled substance at d/c from ED?: No Referrals: Ryan Loving Jr, [Primary Care Provider] - 1-2 days Time of Disposition: 01:00
[2019-03-17 00:19] LABS: Basophils % (A) 1 %; Eosinophils # (A) 0.3 k/uL (0-0.7); Eosinophils % (A) 3 %; HCT 47.1 % (39.0-53.0); HGB 15.8 gm/dL (13.0-17.5); Lymphocytes % (A) 25 %; MCHC 33.5 g/dL (31.0-37.0); MCV 89.7 fL (80.0-100.0); Mean Platelet Volume 8.5; Monocytes # (A) 0.6 k/uL (0-1.0); Monocytes % (A) 8 %; Neutrophils # (A) 5.1 k/uL (1.3-7.7); Neutrophils % (A) 62 %; Platelet Count 208 k/uL (150-450); RBC 5.25 m/uL (4.30-5.90); WBC 8.2 k/uL (3.8-10.6)
[2019-03-17 00:29] LABS: Albumin 4.4 g/dL (3.5-5.0); Calcium 9.2 mg/dL (8.4-10.2); Total Bilirubin 0.4 mg/dL (0.2-1.3); Total Protein 7.1 g/dL (6.3-8.2)
[2019-03-17 00:34] LABS: Partial Thromboplastin Time 27.2 sec (22.0-30.0); Prothrombin Time 10.7 sec (9.0-12.0)
[2019-03-17 00:44] LABS: Amorphous Sediment,Urine Rare /hpf; Appearance,Urine Cloudy (Clear); Bilirubin,Urine Negative (Negative); Blood,Urine Negative (Negative); Color,Urine Yellow; Glucose,Urine (UA) Negative (Negative); Ketones,Urine Trace (Negative); Leukocyte Esterase,Urine Negative (Negative); Mucus,Urine Rare /hpf; Nitrite,Urine Negative (Negative); Protein,Urine Negative (Negative); RBC,Urine 4 /hpf (0-5); Specific Gravity,Urine 1.024 (1.001-1.035); Urobilinogen,Urine <2.0 mg/dL (<2.0)
--- NOTE | 2019-03-17 00:44 | CT ---
EXAM: CT Abdomen and Pelvis Without Intravenous Contrast CLINICAL HISTORY: ITS.REASON CT Reason: abdominal pain TECHNIQUE: Axial computed tomography images of the abdomen and pelvis without intravenous contrast. This CT exam was performed using one or more of the following dose reduction techniques: automated exposure control, adjustment of the mA and/or kV according to patient size, and/or use of iterative reconstruction technique. COMPARISON: No relevant prior studies available. FINDINGS: Lung bases: Unremarkable. No mass. No consolidation. ABDOMEN: Liver: No suspicious mass. Gallbladder and bile ducts: No abnormal ductal dilation or stones. Pancreas: Unremarkable. No ductal dilation. Spleen: Unremarkable. No splenomegaly. Adrenals: Unremarkable. No mass. Kidneys and ureters: Nonobstructing bilateral renal stones. Stomach and bowel: No obstruction. No mucosal thickening. PELVIS: Appendix: No findings to suggest acute appendicitis. Bladder: Unremarkable. No stones. Reproductive: Unremarkable as visualized. ABDOMEN and PELVIS: Intraperitoneal space: Unremarkable. No free air. No significant fluid collection. Bones/joints: No acute fracture. No dislocation. Soft tissues: Unremarkable. Vasculature: No abdominal aortic aneurysm. Lymph nodes: Unremarkable. No enlarged lymph nodes. IMPRESSION: Nonobstructing bilateral renal stones.
--- NOTE | 2019-03-17 00:45 | XR ---
EXAM: XR Abdomen, 1 View CLINICAL HISTORY: ITS.REASON XR Reason: abdominal pain TECHNIQUE: Frontal supine view of the abdomen/pelvis. COMPARISON: No relevant prior studies available. FINDINGS: Gastrointestinal tract: Unremarkable. No dilation. Organs: Cholecystectomy Bones/joints: Unremarkable. IMPRESSION: No acute findings.
[2019-03-17 01:12] VITALS: BP 117/76; PULSE 68; RESP 17; TEMP 98.6
== END 2019-03-17 01:14 | disposition home or self-care (01) ==
LOC: EC 23:31
DX: R10.9 Unspecified abdominal pain (principal); R11.0 Nausea; I10 Essential (primary) hypertension; E07.9 Disorder of thyroid, unspecified; Z79.899 Other long term (current) drug therapy; Z79.890 Hormone replacement therapy; Z88.0 Allergy status to penicillin; Z90.49 Acquired absence of other specified parts of digestive tract
CPT/HCPCS: 36415; 80053; 82150; 83690; 85025; 85610; 85730; 81001; 74018; 74176; 99284; 96374; 96375; 96361; J2765; J1885

== ENCOUNTER 2019-03-17 14:25 | Emergency (ER) | payer OTHER ==
[2019-03-17 14:29] VITALS: RESP 18
[2019-03-17] MEDS ORDERED: MORPHINE SULFATE 4 MG/ML SYRINGE IVP STA (15:16)
[2019-03-17] MEDS ORDERED: SODIUM CHLORIDE 0.9% 1,000 ML IV STA (15:16)
[2019-03-17] MEDS ORDERED: ONDANSETRON 4 MG/2 ML VIAL IVP STA ×2 (15:16→16:22)
[2019-03-17 15:38] LABS: Basophils % (A) 1 %; Eosinophils # (A) 0.1 k/uL (0-0.7); Eosinophils % (A) 1 %; HGB 16.4 gm/dL (13.0-17.5); Lymphocytes # (A) 1.5 k/uL (1.0-4.8); Lymphocytes % (A) 21 %; MCH 29.5 pg (25.0-35.0); MCHC 32.8 g/dL (31.0-37.0); MCV 89.8 fL (80.0-100.0); Mean Platelet Volume 8.8; Monocytes # (A) 0.6 k/uL (0-1.0); Monocytes % (A) 8 %; Neutrophils # (A) 4.9 k/uL (1.3-7.7); Neutrophils % (A) 67 %; Platelet Count 231 k/uL (150-450); RBC 5.57 m/uL (4.30-5.90); RDW 14.8 % (11.5-15.5); WBC 7.3 k/uL (3.8-10.6)
[2019-03-17 15:44] LABS: ALT 28 U/L (21-72); AST 24 U/L (17-59); Albumin 4.4 g/dL (3.5-5.0); Alkaline Phosphatase 58 U/L (38-126); Anion Gap 7 mmol/L; Blood Urea Nitrogen 16 mg/dL (9-20); Calcium 9.3 mg/dL (8.4-10.2); Carbon Dioxide 29 mmol/L (22-30); Chloride 103 mmol/L (98-107); Glucose 81 mg/dL (74-99); Lipase 257 U/L (23-300); Potassium 4.1 mmol/L (3.5-5.1); Sodium 139 mmol/L (137-145); Total Bilirubin 0.8 mg/dL (0.2-1.3); Total Protein 7.1 g/dL (6.3-8.2)
[2019-03-17 16:07] LABS: Appearance,Urine Clear (Clear); Bilirubin,Urine Negative (Negative); Blood,Urine Negative (Negative); Color,Urine Yellow; Glucose,Urine (UA) Negative (Negative); Ketones,Urine 1+ (Negative); Leukocyte Esterase,Urine Negative (Negative); Nitrite,Urine Negative (Negative); PH, Urine 6.5 (5.0-8.0); Protein,Urine Trace (Negative); Specific Gravity,Urine 1.027 (1.001-1.035); Urobilinogen,Urine <2.0 mg/dL (<2.0)
--- NOTE | 2019-03-17 16:57 | ED ---
General Adult HPI - General Chief complaint: Abdominal Pain Stated complaint: Kidney stones, body swelling Time Seen by Provider: 03/17/19 14:51 Source: patient Mode of arrival: ambulatory Limitations: no limitations - History of Present Illness Initial comments: Patient is a 39-year-old male presenting to the emergency room complaining of right sided flank pain 2 days. Patient was in the emergency department last night for same complaint. CT showed nonobstructing bilateral renal stones. KUB was normal. Patient states he feels like his pain is worse than his previous kidney stones and he feels like something else is wrong. He is complaining of "swelling of his right side." Also admits to nausea and burning with urination. Patient presently takes oxycodone for his back pain and states it did not touch his kidney pain. Patient denies hematuria, vomiting. - Related Data Home Medications Medication Instructions Recorded Confirmed Levothyroxine Sodium [Synthroid] 50 mcg PO DAILY 03/30/14 03/16/19 oxyCODONE HCL [OxyIR] 10 mg PO BID PRN 11/08/17 03/16/19 tiZANidine HCL [Zanaflex] 8 mg PO BID PRN 01/13/19 03/16/19 Lisinopril [Zestril] 10 mg PO BID 01/26/19 03/16/19 Testosterone Cypionate 130 mg IM Q72H 01/26/19 03/16/19 [Depo-Testosterone] Previous Rx's Medication Instructions Recorded Aspirin EC [Ecotrin Low Dose] 81 mg PO DAILY #30 tablet. 01/27/19 Ondansetron Odt [Zofran Odt] 4 mg PO Q8HR PRN #10 tab 03/17/19 Allergies Allergy/AdvReac Type Severity Reaction Status Date / Time benzalkonium chloride Allergy Severe Swelling Verified 03/17/19 14:29 duloxetine HCl AdvReac Severe severe Verified 03/17/19 14:29 [From Cymbalta] headache gabapentin [From Neurontin] AdvReac HEADACHE Verified 03/17/19 14:29 Review of Systems ROS Statement: Those systems with pertinent positive or pertinent negative responses have been documented in the HPI. ROS Other: All systems not noted in ROS Statement are negative. Past Medical History Past Medical History: GERD/Reflux, Hypertension, Thyroid Disorder Additional Past Medical History / Comment(s): KIDNEY STONE,CHRONIC BACK PAIN, History of Any Multi-Drug Resistant Organisms: None Reported Past Surgical History: Appendectomy, Cholecystectomy Additional Past Surgical History / Comment(s): PAIN PROCEDURES, Past Anesthesia/Blood Transfusion Reactions: Previous Problems w/ Anesthesia Additional Past Anesthesia/Blood Transfusion Reaction / Comment(s): STATES "NOVOCAINE DOESN'T WORK ON ME" "TAKES MORE THAN NORMAL TO PUT ME OUT" Past Psychological History: No Psychological Hx Reported Smoking Status: Never smoker Past Alcohol Use History: None Reported Past Drug Use History: None Reported - Past Family History Mother History Unknown: Yes Family Medical History: Dementia Father Additional Family Medical History / Comment(s): SMOKER. General Exam - General Exam Comments Initial Comments: GENERAL: Well-appearing, well-nourished and in no acute distress. HEAD: Atraumatic, normocephalic. EYES: Pupils equal round and reactive to light, extraocular movements intact, sclera anicteric, conjunctiva are normal. ENT: TMs normal, nares patent, oropharynx clear without exudates. Moist mucous membranes. NECK: Normal range of motion, supple without lymphadenopathy or JVD. LUNGS: Breath sounds clear to auscultation bilaterally and equal. No wheezes rales or rhonchi. HEART: Regular rate and rhythm without murmurs, rubs or gallops. ABDOMEN: Soft, nontender, normoactive bowel sounds. No guarding, no rebound. No masses appreciated. Mild right CVA tenderness. : Deferred EXTREMITIES: Normal range of motion, no pitting or edema. No clubbing or cyanosis. NEUROLOGICAL: Cranial nerves II through XII grossly intact. Normal speech, normal gait. PSYCH: Normal mood, normal affect. SKIN: Warm, Dry, normal turgor, no rashes or lesions noted. Limitations: no limitations Course Vital Signs 03/17/19 03/17/19 14:26 16:00 Temperature 98.5 F 98.5 F Pulse Rate 72 72 Respiratory 18 18 Rate Blood Pressure 115/74 123/73 O2 Sat by Pulse 97 96 Oximetry Medical Decision Making - Medical Decision Making Patient is a 39-year-old male complaining of right-sided flank pain 2 days. Patient was in the ER last night for same complaint. CT yesterday showed b ilateral nonobstructed renal stones. KUB yesterday was also normal. Patient states his pain is different from his previous renal stones and he thinks something else is going on. His CBC, CMP, UA are all within normal limits. KUB is unchanged from last night. Patient will be discharged home and given urology follow-up if symptoms continue. - Lab Data Result diagrams: 03/17/19 14:53 03/17/19 14:53 Lab Results 03/17/19 03/17/19 03/17/19 Range/Units 14:53 14:53 15:50 WBC 7.3 (3.8-10.6) k/uL RBC 5.57 (4.30-5.90) m/uL Hgb 16.4 (13.0-17.5) gm/dL Hct 50.0 (39.0-53.0) % MCV 89.8 (80.0-100.0) fL MCH 29.5 (25.0-35.0) pg MCHC 32.8 (31.0-37.0) g/dL RDW 14.8 (11.5-15.5) % Plt Count 231 (150-450) k/uL Neutrophils % 67 % Lymphocytes % 21 % Monocytes % 8 % Eosinophils % 1 % Basophils % 1 % Neutrophils # 4.9 (1.3-7.7) k/uL Lymphocytes # 1.5 (1.0-4.8) k/uL Monocytes # 0.6 (0-1.0) k/uL Eosinophils # 0.1 (0-0.7) k/uL Basophils # 0.0 (0-0.2) k/uL Sodium 139 (137-145) mmol/L Potassium 4.1 (3.5-5.1) mmol/L Chloride 103 (98-107) mmol/L Carbon Dioxide 29 (22-30) mmol/L Anion Gap 7 mmol/L BUN 16 (9-20) mg/dL Creatinine 1.15 (0.66-1.25) mg/dL Est GFR (CKD-EPI)AfAm >90 (>60 ml/min/1.73 sqM) Est GFR (CKD-EPI)NonAf 79 (>60 ml/min/1.73 sqM) Glucose 81 (74-99) mg/dL Calcium 9.3 (8.4-10.2) mg/dL Total Bilirubin 0.8 (0.2-1.3) mg/dL AST 24 (17-59) U/L ALT 28 (21-72) U/L Alkaline Phosphatase 58 (38-126) U/L Total Protein 7.1 (6.3-8.2) g/dL Albumin 4.4 (3.5-5.0) g/dL Lipase 257 (23-300) U/L Urine Color Yellow Urine Appearance Clear (Clear) Urine pH 6.5 (5.0-8.0) Ur Specific [place] 1.027 (1.001-1.035) Urine Protein Trace H (Negative) Urine Glucose (UA) Negative (Negative) Urine Ketones 1+ H (Negative) Urine Blood Negative (Negative) Urine Nitrite Negative (Negative) Urine Bilirubin Negative (Negative) Urine Urobilinogen <2.0 (<2.0) mg/dL Ur Leukocyte Esterase Negative (Negative) Disposition Clinical Impression: Calculus of kidney, Flank pain Disposition: HOME SELF-CARE Condition: Stable Instructions (If sedation given, give patient instructions): Kidney Stones (ED) Additional Instructions: Please return to the Emergency Department if symptoms worsen or any other concerns. Follow-up with urology if symptoms continue. Prescriptions: Ondansetron Odt [Zofran Odt] 4 mg PO Q8HR PRN #10 tab PRN Reason: Nausea Is patient prescribed a controlled substance at d/c from ED?: No Referrals: Ryan Loving Jr, [Primary Care Provider] - 1-2 days Jd Benitez MD [STAFF PHYSICIAN] - 1-2 days
--- NOTE | 2019-03-17 17:08 | XR ---
EXAMINATION TYPE: XR KUB DATE OF EXAM: 03/17/2019 COMPARISON: Today HISTORY: Right flank pain TECHNIQUE: 2 views upright FINDINGS: There is no sign of intestinal obstruction or pneumoperitoneum. Fecal pattern is normal. Th ere are clips from cholecystectomy. I see no pathologic calcifications. IMPRESSION: Nonacute abdomen. No change.
[2019-03-17 17:42] VITALS: BP 120/64; PULSE 82; TEMP 98
== END 2019-03-17 17:30 | disposition home or self-care (01) ==
LOC: EC 14:25
DX: N20.0 Calculus of kidney (principal); I10 Essential (primary) hypertension; E07.9 Disorder of thyroid, unspecified; G89.29 Other chronic pain; Z88.8 Allergy status to other drugs, medicaments and biological substances; Z79.890 Hormone replacement therapy; Z79.899 Other long term (current) drug therapy; Z90.49 Acquired absence of other specified parts of digestive tract
CPT/HCPCS: 99284; 96374; 96375; 96376; 96361; 36415; 80053; 83690; 85025; 81003; 74018; J2270; J2405

== ENCOUNTER 2019-03-22 11:48 | Emergency (ER) | payer OTHER ==
[2019-03-22] MEDS ORDERED: KETOROLAC 60 MG/2 ML VIAL IVP STA (12:16)
--- NOTE | 2019-03-22 12:22 | ED ---
General Adult HPI - General Chief complaint: Abdominal Pain Stated complaint: kidney stone Time Seen by Provider: 03/22/19 11:55 Source: patient, RN notes reviewed Mode of arrival: ambulatory Limitations: no limitations - History of Present Illness Initial comments: This is a 39-year-old male who presents emergency Department complaining of having had a kidney stone for a few weeks. Patient states that a couple visits to the emergency department and 2 his primary and is on oxycodone Advil and Tylenol and it is not helping. Patient states pain is excruciating and it is in both kidneys. Patient states he also has some anterior abdominal pain. Patient states she's trying to get into urology but he can't get him because he does not have insurance. Patient denies any fever chills per patient denies vomiting diarrhea. Patient denies any chest pain difficulty breathing first breath. Patient denies any dysuria - Related Data Home Medications Medication Instructions Recorded Confirmed Levothyroxine Sodium [Synthroid] 50 mcg PO DAILY 03/30/14 03/16/19 oxyCODONE HCL [OxyIR] 10 mg PO BID PRN 11/08/17 03/16/19 tiZANidine HCL [Zanaflex] 8 mg PO BID PRN 01/13/19 03/16/19 Lisinopril [Zestril] 10 mg PO BID 01/26/19 03/16/19 Testosterone Cypionate 130 mg IM Q72H 01/26/19 03/16/19 [Depo-Testosterone] Previous Rx's Medication Instructions Recorded Aspirin EC [Ecotrin Low Dose] 81 mg PO DAILY #30 tablet. 01/27/19 Ondansetron Odt [Zofran Odt] 4 mg PO Q8HR PRN #10 tab 03/17/19 Allergies Allergy/AdvReac Type Severity Reaction Status Date / Time benzalkonium chloride Allergy Severe Swelling Verified 03/22/19 11:52 duloxetine HCl AdvReac Severe severe Verified 03/22/19 11:52 [From Cymbalta] headache gabapentin [From Neurontin] AdvReac HEADACHE Verified 03/22/19 11:52 Review of Systems ROS Statement: Those systems with pertinent positive or pertinent negative responses have been documented in the HPI. ROS Other: All systems not noted in ROS Statement are negative. Past Medical History Past Medical History: GERD/Reflux, Hypertension, Thyroid Disorder Additional Past Medical History / Comment(s): KIDNEY STONE,CHRONIC BACK PAIN, History of Any Multi-Drug Resistant Organisms: None Reported Past Surgical History: Appendectomy, Cholecystectomy Additional Past Surgical History / Comment(s): PAIN PROCEDURES, Past Anesthesia/Blood Transfusion Reactions: Previous Problems w/ Anesthesia Additional Past Anesthesia/Blood Transfusion Reaction / Comment(s): STATES "NOVOCAINE DOESN'T WORK ON ME" "TAKES MORE THAN NORMAL TO PUT ME OUT" Past Psychological History: No Psychological Hx Reported Smoking Status: Never smoker Past Alcohol Use History: None Reported Past Drug Use History: None Reported - Past Family History Mother History Unknown: Yes Family Medical History: Dementia Father Additional Family Medical History / Comment(s): SMOKER. General Exam - General Exam Comments Initial Comments: GENERAL: Patient is well-developed and well-nourished. Patient is nontoxic and well- hydrated and is in mild distress. ENT: Neck is soft and supple. No significant lymphadenopathy is noted. Oropharynx is clear. Moist mucous membranes. Neck has full range of motion without eliciting any pain. EYES: The sclera were anicteric and conjunctiva were pink and moist. Extraocular movements were intact and pupils were equal round and reactive to light. Eyelids were unremarkable. PULMONARY: Unlabored respirations. Good breath sounds bilaterally. No audible rales rho nchi or wheezing was noted. CARDIOVASCULAR: There is a regular rate and rhythm without any murmurs gallops or rubs. ABDOMEN: Patient has mild diffuse tenderness. No palpable organomegaly was noted. There is no palpable pulsatile mass. SKIN: Skin is clear with no lesions or rashes and otherwise unremarkable. NEUROLOGIC: Patient is alert and oriented x3. Cranial nerves II through XII are grossly intact. Motor and sensory are also intact. Normal speech, volume and content. Symmetrical smile. MUSCULOSKELETAL: Normal extremities with adequate strength and full range of motion. No lower extremity swelling or edema. No calf tenderness. LYMPHATICS: No significant lymphadenopathy is noted PSYCHIATRIC: Normal psychiatric evaluation. Limitations: no limitations Course Vital Signs 03/22/19 03/22/19 11:51 13:22 Temperature 98.2 F Pulse Rate 88 Respiratory 18 16 Rate Blood Pressure 134/76 O2 Sat by Pulse 98 Oximetry Medical Decision Making - Medical Decision Making I went into the room to reevaluate the patient he was sleeping soundly. However patient was continued to ask for pain medicine. I spoke with Dr. Loving about the patient's results he stated he will see the patient first thing in the morning. - Lab Data Result diagrams: 03/22/19 12:30 03/22/19 12:30 Lab Results 03/22/19 03/22/19 03/22/19 Range/Units 12:25 12:30 12:30 WBC 7.8 (3.8-10.6) k/uL RBC 5.64 (4.30-5.90) m/uL Hgb 16.6 (13.0-17.5) gm/dL Hct 51.2 (39.0-53.0) % MCV 90.7 (80.0-100.0) fL MCH 29.5 (25.0-35.0) pg MCHC 32.5 (31.0-37.0) g/dL RDW 13.4 (11.5-15.5) % Plt Count 243 (150-450) k/uL Neutrophils % 67 % Lymphocytes % 21 % Monocytes % 7 % Eosinophils % 2 % Basophils % 1 % Neutrophils # 5.2 (1.3-7.7) k/uL Lymphocytes # 1.6 (1.0-4.8) k/uL Monocytes # 0.6 (0-1.0) k/uL Eosinophils # 0.2 (0-0.7) k/uL Basophils # 0.1 (0-0.2) k/uL Sodium 139 (137-145) mmol/L Potassium 4.1 (3.5-5.1) mmol/L Chloride 103 (98-107) mmol/L Carbon Dioxide 28 (22-30) mmol/L Anion Gap 8 mmol/L BUN 10 (9-20) mg/dL Creatinine 1.09 (0.66-1.25) mg/dL Est GFR (CKD-EPI)AfAm >90 (>60 ml/min/1.73 sqM) Est GFR (CKD-EPI)NonAf 84 (>60 ml/min/1.73 sqM) Glucose 86 (74-99) mg/dL Plasma Lactic Acid Roshan (0.7-2.0) mmol/L Calcium 9.3 (8.4-10.2) mg/dL Total Bilirubin 0.5 (0.2-1.3) mg/dL AST 19 (17-59) U/L ALT 23 (21-72) U/L Alkaline Phosphatase 54 (38-126) U/L Total Protein 6.9 (6.3-8.2) g/dL Albumin 4.2 (3.5-5.0) g/dL Amylase 47 (30-110) U/L Lipase 172 (23-300) U/L Urine Color Light Yellow Urine Appearance Clear (Clear) Urine pH 7.0 (5.0-8.0) Ur Specific [place] 1.008 (1.001-1.035) Urine Protein Negative (Negative) Urine Glucose (UA) Negative (Negative) Urine Ketones Negative (Negative) Urine Blood Negative (Negative) Urine Nitrite Negative (Negative) Urine Bilirubin Negative (Negative) Urine Urobilinogen <2.0 (<2.0) mg/dL Ur Leukocyte Esterase Negative (Negative) 03/22/19 Range/Units 12:30 WBC (3.8-10.6) k/uL RBC (4.30-5.90) m/uL Hgb (13.0-17.5) gm/dL Hct (39.0-53.0) % MCV (80.0-100.0) fL MCH (25.0-35.0) pg MCHC (31.0-37.0) g/dL RDW (11.5-15.5) % Plt Count (150-450) k/uL Neutrophils % % Lymphocytes % % Monocytes % % Eosinophils % % Basophils % % Neutrophils # (1.3-7.7) k/uL Lymphocytes # (1.0-4.8) k/uL Monocytes # (0-1.0) k/uL Eosinophils # (0-0.7) k/uL Basophils # (0-0.2) k/uL Sodium (137-145) mmol/L Potassium (3.5-5.1) mmol/L Chloride (98-107) mmol/L Carbon Dioxide (22-30) mmol/L Anion Gap mmol/L BUN (9-20) mg/dL Creatinine (0.66-1.25) mg/dL Est GFR (CKD-EPI)AfAm (>60 ml/min/1.73 sqM) Est GFR (CKD-EPI)NonAf (>60 ml/min/1.73 sqM) Glucose (74-99) mg/dL Plasma Lactic Acid Roshan 1.3 (0.7-2.0) mmol/L Calcium (8.4-10.2) mg/dL Total Bilirubin (0.2-1.3) mg/dL AST (17-59) U/L ALT (21-72) U/L Alkaline Phosphatase (38-126) U/L Total Protein (6.3-8.2) g/dL Albumin (3.5-5.0) g/dL Amylase (30-110) U/L Lipase (23-300) U/L Urine Color Urine Appearance (Clear) Urine pH (5.0-8.0) Ur Specific [place] (1.001-1.035) Urine Protein (Negative) Urine Glucose (UA) (Negative) Urine Ketones (Negative) Urine Blood (Negative) Urine Nitrite (Negative) Urine Bilirubin (Negative) Urine Urobilinogen (<2.0) mg/dL Ur Leukocyte Esterase (Negative) Disposition Clinical Impression: Bilateral flank pain Disposition: HOME SELF-CARE Instructions (If sedation given, give patient instructions): Abdominal Pain (ED), Flank Pain (ED) Is patient prescribed a controlled substance at d/c from ED?: No Referrals: Ryan Loving Jr, DO [Primary Care Provider] - 03/23/19 Time of Disposition: 13:54
[2019-03-22] MEDS ORDERED: ONDANSETRON 4 MG/2 ML VIAL IVP STA (12:26)
[2019-03-22 12:51] LABS: Appearance,Urine Clear (Clear); Bilirubin,Urine Negative (Negative); Blood,Urine Negative (Negative); Color,Urine Light Yellow; Glucose,Urine (UA) Negative (Negative); Ketones,Urine Negative (Negative); Leukocyte Esterase,Urine Negative (Negative); Nitrite,Urine Negative (Negative); Protein,Urine Negative (Negative); Specific Gravity,Urine 1.008 (1.001-1.035); Urobilinogen,Urine <2.0 mg/dL (<2.0)
[2019-03-22 12:53] LABS: Basophils # (A) 0.1 k/uL (0-0.2); Basophils % (A) 1 %; Eosinophils # (A) 0.2 k/uL (0-0.7); Eosinophils % (A) 2 %; HCT 51.2 % (39.0-53.0); HGB 16.6 gm/dL (13.0-17.5); Lymphocytes # (A) 1.6 k/uL (1.0-4.8); Lymphocytes % (A) 21 %; MCH 29.5 pg (25.0-35.0); MCHC 32.5 g/dL (31.0-37.0); MCV 90.7 fL (80.0-100.0); Mean Platelet Volume 8.4; Monocytes # (A) 0.6 k/uL (0-1.0); Monocytes % (A) 7 %; Neutrophils # (A) 5.2 k/uL (1.3-7.7); Neutrophils % (A) 67 %; Platelet Count 243 k/uL (150-450); RBC 5.64 m/uL (4.30-5.90); RDW 13.4 % (11.5-15.5); WBC 7.8 k/uL (3.8-10.6)
[2019-03-22 13:00] LABS: ALT 23 U/L (21-72); AST 19 U/L (17-59); African American GFR (CKD) >90 (>60 ml/min/1.73 sqM); Albumin 4.2 g/dL (3.5-5.0); Alkaline Phosphatase 54 U/L (38-126); Amylase 47 U/L (30-110); Anion Gap 8 mmol/L; Blood Urea Nitrogen 10 mg/dL (9-20); Calcium 9.3 mg/dL (8.4-10.2); Carbon Dioxide 28 mmol/L (22-30); Chloride 103 mmol/L (98-107); Glucose 86 mg/dL (74-99); Lipase 172 U/L (23-300); Potassium 4.1 mmol/L (3.5-5.1); Sodium 139 mmol/L (137-145); Total Bilirubin 0.5 mg/dL (0.2-1.3); Total Protein 6.9 g/dL (6.3-8.2)
[2019-03-22 13:23] VITALS: RESP 16
[2019-03-22 14:06] VITALS: BP 111/81; PULSE 72; TEMP 98.6
== END 2019-03-22 14:15 | disposition home or self-care (01) ==
LOC: EC 11:48
DX: R10.84 Generalized abdominal pain (principal); I10 Essential (primary) hypertension; E07.9 Disorder of thyroid, unspecified; Z87.442 Personal history of urinary calculi; Z90.49 Acquired absence of other specified parts of digestive tract; Z79.52 Long term (current) use of systemic steroids; Z79.890 Hormone replacement therapy; Z79.899 Other long term (current) drug therapy; Z88.8 Allergy status to other drugs, medicaments and biological substances
CPT/HCPCS: 36415; 80053; 82150; 83605; 83690; 85025; 81003; 99284; 96374; 96375; J2405; J1885

== ENCOUNTER 2019-04-29 00:44 | Inpatient (IN) | payer OTHER ==
[2019-04-29] MEDS ORDERED: HYDROmorphone 1 MG/ML 1 ML SYRINGE IVP STA (03:03)
[2019-04-29] MEDS ORDERED: LORazepam 2 MG/ML INJ IV STA (03:03)
--- NOTE | 2019-04-29 03:06 | ED ---
Abdominal Pain HPI - General Chief Complaint: Abdominal Pain Stated Complaint: Hernia Time Seen by Provider: 04/29/19 02:41 Source: patient Mode of arrival: ambulatory Limitations: no limitations - History of Present Illness Initial Comments: Patient's 39-year-old man who complains of periumbilical abdominal pain which came on towards the end of his work day. This was approximately to the afternoon. The patient describes it as aching, noticed severe, and constant. He states that he was doing some lifting and he is concerned about a hernia as he feels a small lump at the umbilicus. Patient denies vomiting but has had some nausea. He does continue to pass some flatus throughout the day. Last bowel movement was in the early afternoon was normal. No change in urination. No scrotal or testicular pain or mass. No discharge. MD Complaint: abdominal pain Onset/Timin -: hour(s) Location: periumbilical Radiation: none Migration to: no migration Severity: moderate Quality: cramping Consistency: constant Improves With: nothing Worsens With: other (Standing fully upright) Associated Symptoms: nausea - Related Data Home Medications Medication Instructions Recorded Confirmed Levothyroxine Sodium [Synthroid] 50 mcg PO DAILY 03/30/14 04/29/19 oxyCODONE HCL [OxyIR] 10 mg PO BID PRN 11/08/17 04/29/19 tiZANidine HCL [Zanaflex] 8 mg PO HS PRN 01/13/19 04/29/19 Lisinopril [Zestril] 10 mg PO BID 01/26/19 04/29/19 Testosterone Cypionate 130 mg IM Q72H 01/26/19 04/29/19 [Depo-Testosterone] Acetaminophen Tab [Tylenol Tab] 650 mg PO Q6H PRN 04/29/19 04/29/19 Ibuprofen [Advil] 200 mg PO Q8HR PRN 04/29/19 04/29/19 amLODIPine [Norvasc] 5 mg PO DAILY 04/29/19 04/29/19 Previous Rx's Medication Instructions Recorded Aspirin EC [Ecotrin Low Dose] 81 mg PO DAILY #30 tablet. 01/27/19 Sulfamethox-Tmp 800-160Mg [Bactrim 1 each PO Q12HR #6 tab 04/29/19 Ds] Allergies Allergy/AdvReac Type Severity Reaction Status Date / Time benzalkonium chloride Allergy Severe Swelling Verified 04/29/19 07:24 duloxetine HCl AdvReac Severe severe Verified 04/29/19 07:24 [From Cymbalta] headache gabapentin [From Neurontin] AdvReac HEADACHE Verified 04/29/19 07:24 Review of Systems ROS Statement: Those systems with pertinent positive or pertinent negative responses have been documented in the HPI. ROS Other: All systems not noted in ROS Statement are negative. Constitutional: Denies: fever, chills Respiratory: Denies: cough, dyspnea Cardiovascular: Denies: chest pain, palpitations Gastrointestinal: Reports: abdominal pain, nausea. Denies: vomiting, diarrhea, constipation, melena, hematochezia Genitourinary: Denies: dysuria, hematuria, testicular pain, testicular mass Musculoskeletal: Denies: back pain Skin: Denies: rash Neurological: Denies: headache Hematological/Lymphatic: Denies: easy bleeding Past Medical History Past Medical History: GERD/Reflux, Hypertension, Thyroid Disorder Additional Past Medical History / Comment(s): KIDNEY STONE,CHRONIC BACK PAIN, History of Any Multi-Drug Resistant Organisms: None Reported Past Surgical History: Appendectomy, Cholecystectomy Additional Past Surgical History / Comment(s): PAIN PROCEDURES, Past Anesthesia/Blood Transfusion Reactions: Previous Problems w/ Anesthesia Additional Past Anesthesia/Blood Transfusion Reaction / Comment(s): STATES "NOVOCAINE DOESN'T WORK ON ME" "TAKES MORE THAN NORMAL TO PUT ME OUT" Past Psychological History: No Psychological Hx Reported Smoking Status: Never smoker Past Alcohol Use History: None Reported Past Drug Use History: None Reported - Past Family History Mother History Unknown: Yes Family Medical History: Dementia Father Additional Family Medical History / Comment(s): SMOKER. General Exam Limitations: no limitations General appearance: alert, in no apparent distress Head exam: Present: atraumatic, normocephalic Eye exam: Present: normal appearance Respiratory exam: Present: normal lung sounds bilaterally. Absent: respiratory distress, wheezes, rales, rhonchi, stridor Cardiovascular Exam: Present: regular rate, normal rhythm, normal heart sounds. Absent: systolic murmur, diastolic murmur, rubs, gallop GI/Abdominal exam: Present: soft, tenderness, guarding, normal bowel sounds, hernia (Umbilical), other (Patient also has erythema surrounding the umbilicus, with accompanying warmth. No drainage.). Absent: distended, rebound, rigid, mass Extremities exam: Present: normal inspection, normal capillary refill. Absent: pedal edema, calf tenderness Back exam: Present: normal inspection. Absent: CVA tenderness (R), CVA tenderness (L) Neurological exam: Present: alert Skin exam: Present: warm, dry, intact, normal color. Absent: rash Course Vital Signs 04/29/19 04/29/19 04/29/19 01:11 04:43 06:34 Temperature 98.3 F Pulse Rate 66 72 69 Respiratory 18 16 16 Rate Blood Pressure 120/75 121/63 117/79 O2 Sat by Pulse 98 96 96 Oximetry Medical Decision Making - Medical Decision Making Patient does have a small umbilical hernia which I was able to reduce at the bedside after the patient had been given some analgesics. Patient on the computed tomography scan does not have any intra-abdominal pathology identified. He does have some cellulitis of the abdominal wall surrounding the umbilicus. He continues to have marked symptoms and therefore will be admitted for symptom control and also to start IV antibiotics for the abdominal wall cellulitis. Case discussed with PMD - Lab Data Result diagrams: 05/01/19 07:41 05/01/19 07:41 Lab Results 04/29/19 04/29/19 04/29/19 Range/Units 03:03 03:03 03:03 WBC 10.5 (3.8-10.6) k/uL RBC 5.45 (4.30-5.90) m/uL Hgb 16.4 (13.0-17.5) gm/dL Hct 49.0 (39.0-53.0) % MCV 90.0 (80.0-100.0) fL MCH 30.2 (25.0-35.0) pg MCHC 33.6 (31.0-37.0) g/dL RDW 14.4 (11.5-15.5) % Plt Count 219 (150-450) k/uL Neutrophils % 72 % Lymphocytes % 16 % Monocytes % 7 % Eosinophils % 3 % Basophils % 1 % Neutrophils # 7.5 (1.3-7.7) k/uL Lymphocytes # 1.7 (1.0-4.8) k/uL Monocytes # 0.8 (0-1.0) k/uL Eosinophils # 0.3 (0-0.7) k/uL Basophils # 0.1 (0-0.2) k/uL Sodium 138 (137-145) mmol/L Potassium 4.6 (3.5-5.1) mmol/L Chloride 101 (98-107) mmol/L Carbon Dioxide 27 (22-30) mmol/L Anion Gap 10 mmol/L BUN 9 (9-20) mg/dL Creatinine 1.01 (0.66-1.25) mg/dL Est GFR (CKD-EPI)AfAm >90 (>60 ml/min/1.73 sqM) Est GFR (CKD-EPI)NonAf >90 (>60 ml/min/1.73 sqM) Glucose 87 (74-99) mg/dL Plasma Lactic Acid Roshan 0.9 (0.7-2.0) mmol/L Calcium 9.3 (8.4-10.2) mg/dL Total Bilirubin 1.1 (0.2-1.3) mg/dL AST 42 (17-59) U/L ALT 23 (21-72) U/L Alkaline Phosphatase 58 (38-126) U/L Total Protein 7.8 (6.3-8.2) g/dL Albumin 4.6 (3.5-5.0) g/dL Amylase 49 (30-110) U/L Lipase 254 (23-300) U/L Urine Color Urine Appearance (Clear) Urine pH (5.0-8.0) Ur Specific [place] (1.001-1.035) Urine Protein (Negative) Urine Glucose (UA) (Negative) Urine Ketones (Negative) Urine Blood (Negative) Urine Nitrite (Negative) Urine Bilirubin (Negative) Urine Urobilinogen (<2.0) mg/dL Ur Leukocyte Esterase (Negative) 04/29/19 Range/Units 03:45 WBC (3.8-10.6) k/uL RBC (4.30-5.90) m/uL Hgb (13.0-17.5) gm/dL Hct (39.0-53.0) % MCV (80.0-100.0) fL MCH (25.0-35.0) pg MCHC (31.0-37.0) g/dL RDW (11.5-15.5) % Plt Count (150-450) k/uL Neutrophils % % Lymphocytes % % Monocytes % % Eosinophils % % Basophils % % Neutrophils # (1.3-7.7) k/uL Lymphocytes # (1.0-4.8) k/uL Monocytes # (0-1.0) k/uL Eosinophils # (0-0.7) k/uL Basophils # (0-0.2) k/uL Sodium (137-145) mmol/L Potassium (3.5-5.1) mmol/L Chloride (98-107) mmol/L Carbon Dioxide (22-30) mmol/L Anion Gap mmol/L BUN (9-20) mg/dL Creatinine (0.66-1.25) mg/dL Est GFR (CKD-EPI)AfAm (>60 ml/min/1.73 sqM) Est GFR (CKD-EPI)NonAf (>60 ml/min/1.73 sqM) Glucose (74-99) mg/dL Plasma Lactic Acid Roshan (0.7-2.0) mmol/L Calcium (8.4-10.2) mg/dL Total Bilirubin (0.2-1.3) mg/dL AST (17-59) U/L ALT (21-72) U/L Alkaline Phosphatase (38-126) U/L Total Protein (6.3-8.2) g/dL Albumin (3.5-5.0) g/dL Amylase (30-110) U/L Lipase (23-300) U/L Urine Color Yellow Urine Appearance Clear (Clear) Urine pH 5.5 (5.0-8.0) Ur Specific [place] 1.018 (1.001-1.035) Urine Protein Negative (Negative) Urine Glucose (UA) Negative (Negative) Urine Ketones 1+ H (Negative) Urine Blood Negative (Negative) Urine Nitrite Negative (Negative) Urine Bilirubin Negative (Negative) Urine Urobilinogen <2.0 (<2.0) mg/dL Ur Leukocyte Esterase Negative (Negative) Disposition Clinical Impression: Abdominal pain, Cellulitis, Hernia Disposition: ADMITTED IP TO THIS [facility] Condition: Good Is patient prescribed a controlled substance at d/c from ED?: No When asked, does pt state using other controlled substances?: No If prescribed controlled substance>3 days was MAPS reviewed?: No
[2019-04-29 03:33] LABS: Basophils # (A) 0.1 k/uL (0-0.2); Basophils % (A) 1 %; Eosinophils # (A) 0.3 k/uL (0-0.7); Eosinophils % (A) 3 %; HGB 16.4 gm/dL (13.0-17.5); Lymphocytes # (A) 1.7 k/uL (1.0-4.8); Lymphocytes % (A) 16 %; MCH 30.2 pg (25.0-35.0); MCHC 33.6 g/dL (31.0-37.0); Mean Platelet Volume 9.1; Monocytes # (A) 0.8 k/uL (0-1.0); Monocytes % (A) 7 %; Neutrophils # (A) 7.5 k/uL (1.3-7.7); Neutrophils % (A) 72 %; Platelet Count 219 k/uL (150-450); RBC 5.45 m/uL (4.30-5.90); RDW 14.4 % (11.5-15.5); WBC 10.5 k/uL (3.8-10.6)
[2019-04-29] MEDS ORDERED: MORPHINE SULFATE 4 MG/ML SYRINGE IV STA ×2 (03:41→04:32)
[2019-04-29 03:43] LABS: African American GFR (CKD) >90 (>60 ml/min/1.73 sqM); Amylase 49 U/L (30-110); Anion Gap 10 mmol/L; Calcium 9.3 mg/dL (8.4-10.2); Carbon Dioxide 27 mmol/L (22-30); Chloride 101 mmol/L (98-107); Glucose 87 mg/dL (74-99); Lipase 254 U/L (23-300); Sodium 138 mmol/L (137-145); Total Bilirubin 1.1 mg/dL (0.2-1.3)
[2019-04-29 03:46] LABS: ALT 23 U/L (21-72); AST 42 U/L (17-59); Albumin 4.6 g/dL (3.5-5.0); Alkaline Phosphatase 58 U/L (38-126); Blood Urea Nitrogen 9 mg/dL (9-20); Potassium 4.6 mmol/L (3.5-5.1); Total Protein 7.8 g/dL (6.3-8.2)
[2019-04-29] MEDS ORDERED: PROMETHAZINE INJ 25 MG in SODIUM CHLORIDE 0.9% 50 ML IVPB STA (04:32)
--- NOTE | 2019-04-29 04:45 | CT ---
EXAM: CT Abdomen and Pelvis Without Intravenous Contrast CLINICAL HISTORY: ITS.REASON CT Reason: Pain TECHNIQUE: Axial computed tomography images of the abdomen and pelvis without intravenous contrast. CTDI is 14 mGy and DLP is 822.9 mGy-cm. This CT exam was performed using one or more of the following dose reduction techniques: automated exposure control, adjustment of the mA and/or kV according to patient size, and/or use of iterative reconstruction technique. COMPARISON: 03/17/2019 FINDINGS: Lung bases: Unremarkable. No mass. No consolidation. ABDOMEN: Liver: Unremarkable. Gallbladder and bile ducts: Status post cholecystectomy. No ductal dilation. Pancreas: Unremarkable. No ductal dilation. Spleen: Unremarkable. No splenomegaly. Adrenals: Unremarkable. No mass. Kidneys and ureters: The renal contours are stable from the previous exam. No hydronephrosis or definite ureteral stones identified. There is incidental subcentimeter nephrolithiasis noted within the mid to inferior aspect of the left kidney. Stomach and bowel: Evaluation of bowel mucosa is limited without contrast. No evidence for bowel obstruction. PELVIS: Appendix: The appendix is not identified with findings consistent with prior appendectomy. Bladder: Unremarkable. No stones. Reproductive: Unremarkable as visualized. ABDOMEN and PELVIS: Intraperitoneal space: Unremarkable. No free air. No significant fluid collection. Bones/joints: No acute fracture. No dislocation. Soft tissues: There is increased fat density within the subcutaneous tissues, noted in the periumbilical region, new from the previous exam. Vasculature: Unremarkable. No abdominal aortic aneurysm. Lymph nodes: Unremarkable. No enlarged lymph nodes. IMPRESSION: 1. Evaluation of bowel mucosa is limited without contrast. No evidence for bowel obstruction. No free intraperitoneal fluid or pneumoperitoneum. 2. The renal contours are stable from the previous exam. No hydronephrosis or definite ureteral stones identified. There is incidental subcentimeter nephrolithiasis noted within the mid to inferior aspect of the left kidney. 3. There is increased fat density within the subcutaneous tissues, noted in the periumbilical region, new from the previous exam. The clinical significance of this is uncertain. This may represent edema or focal inflammation at the umbilicus. No loculated fluid collection or extension into the intraperitoneal space identified. Please correlate clinically.
[2019-04-29 04:48] LABS: Appearance,Urine Clear (Clear); Bilirubin,Urine Negative (Negative); Blood,Urine Negative (Negative); Color,Urine Yellow; Glucose,Urine (UA) Negative (Negative); Ketones,Urine 1+ (Negative); Leukocyte Esterase,Urine Negative (Negative); Nitrite,Urine Negative (Negative); PH, Urine 5.5 (5.0-8.0); Protein,Urine Negative (Negative); Specific Gravity,Urine 1.018 (1.001-1.035); Urobilinogen,Urine <2.0 mg/dL (<2.0)
[2019-04-29] MEDS ORDERED: SULFAMETHOX-TMP 800-160MG 1 EACH TAB PO STA (05:39)
[2019-04-29] MEDS ORDERED: VANCOMYCIN IV PER PHARMACY 1 EACH MISC MISCELLANE PRN (07:00)
[2019-04-29] MEDS ORDERED: VANCOMYCIN 1,750 MG in SODIUM CHLORIDE 0.9% 500 ML 500 ML IVPB STA (07:05)
[2019-04-29] MEDS ORDERED: HYDROmorphone 0.5 MG/0.5 ML SYRINGE IVP PRN (07:12)
[2019-04-29] MEDS ORDERED: MORPHINE SULFATE 4 MG/ML SYRINGE IV PRN (07:12)
[2019-04-29] MEDS ORDERED: NALOXONE 0.4 MG/ML 1 ML VIAL IV PRN (07:12)
[2019-04-29] MEDS ORDERED: ONDANSETRON 4 MG/2 ML VIAL IVP PRN (07:12)
[2019-04-29] MEDS: ASPIRIN 81 MG PO SCH (08:37)
[2019-04-29] MEDS: SODIUM CHLORIDE 0.9% 1,000 ML IV SCH ×2 (08:37→16:27)
[2019-04-29] MEDS: LEVOTHYROXINE 50 MCG TAB PO SCH (08:38)
[2019-04-29] MEDS: PANTOPRAZOLE 40 MG/10 ML VIAL IV SCH (08:38)
[2019-04-29] MEDS: LISINOPRIL 10 MG TAB PO SCH ×2 (08:38→21:34)
[2019-04-29] MEDS ORDERED: MAGNESIUM HYDROXIDE 2,400 MG/10 ML CUP PO PRN (12:38)
[2019-04-29] MEDS: HYDROmorphone PCA 10 MG/50 ML BAG IV PRN (14:42)
[2019-04-29] MEDS: VANCOMYCIN 1,750 MG in SODIUM CHLORIDE 0.9% 500 ML 500 ML IVPB SCH (16:27)
--- NOTE | 2019-04-29 21:22 | P.HPIM ---
History of Present Illness H&P Date: 04/29/19 Chief Complaint: Abdominal pain This a 39-year-old gentleman presented to the ER with complaints of periumbilical abdominal pain that occurred yesterday afternoon after returning home from work,in a patient with history of polycythemia vera, hypertension, on oral supplementation of testosterone and multiple other medical issues. Patient's job requires heavy lifting on a daily basis, reports he only lifted about 5 pounds yesterday. Did not have any signs or symptoms of pain until after he was home. He began having severe continuous, nonradiating periumbilical pain. He reports a small lump at the umbilicus. Positive nausea, denies vomiting or diarrhea. Passing flatus, last bowel movement yesterday. Denies problems voiding. Denies lightheadedness dizziness or focal deficits. Denies chest pain, palpitations or shortness of breath. Abdomen/pelvis CT reported no bowel obstruction no free intraperitoneal fluid or pneumoperitoneum, stable renal contours no hydronephrosis, no ureteral stones with incidental subcentimeter nephrolithiasis within the mid to inferior left kidney, increased fat density within the subcutaneous tissues noted in the peter-umbilical region possible edema or focal inflammation at the umbilicus with no loculated fluid collection or extension into the intraperitoneal space. Small umbilical hernia reduced in the ER. Afebrile, normal WBC. CBC, BMP unremarkable. Review of Systems ROS Statement: Those systems with pertinent positive or pertinent negative responses have been documented in the HPI. ROS Other: All systems not noted in ROS Statement are negative. Past Medical History Past Medical History: GERD/Reflux, Hypertension, Thyroid Disorder Additional Past Medical History / Comment(s): KIDNEY STONE,CHRONIC BACK PAIN, History of Any Multi-Drug Resistant Organisms: None Reported Past Surgical History: Appendectomy, Cholecystectomy Additional Past Surgical History / Comment(s): PAIN PROCEDURES Past Anesthesia/Blood Transfusion Reactions: Previous Problems w/ Anesthesia Additional Past Anesthesia/Blood Transfusion Reaction / Comment(s): STATES "NOVOCAINE DOESN'T WORK ON ME" "TAKES MORE THAN NORMAL TO PUT ME OUT" Past Psychological History: No Psychological Hx Reported Additional Psychological History / Comment(s): . Smoking Status: Never smoker Past Alcohol Use History: None Reported Past Drug Use History: None Reported - Past Family History Mother History Unknown: Yes Family Medical History: Dementia Father Additional Family Medical History / Comment(s): SMOKER. Medications and Allergies Home Medications Medication Instructions Recorded Confirmed Type Levothyroxine Sodium [Synthroid] 50 mcg PO DAILY 03/30/14 04/29/19 History oxyCODONE HCL [OxyIR] 10 mg PO BID PRN 11/08/17 04/29/19 History tiZANidine HCL [Zanaflex] 8 mg PO HS PRN 01/13/19 04/29/19 History Lisinopril [Zestril] 10 mg PO BID 01/26/19 04/29/19 History Testosterone Cypionate 130 mg IM Q72H 01/26/19 04/29/19 History [Depo-Testosterone] Aspirin EC [Ecotrin Low Dose] 81 mg PO DAILY #30 tablet. 01/27/19 04/29/19 Rx Acetaminophen Tab [Tylenol Tab] 650 mg PO Q6H PRN 04/29/19 04/29/19 History Ibuprofen [Advil] 200 mg PO Q8HR PRN 04/29/19 04/29/19 History Sulfamethox-Tmp 800-160Mg [Bactrim 1 each PO Q12HR #6 tab 04/29/19 Rx Ds] amLODIPine [Norvasc] 5 mg PO DAILY 04/29/19 04/29/19 History Allergies Allergy/AdvReac Type Severity Reaction Status Date / Time benzalkonium chloride Allergy Severe Swelling Verified 04/29/19 07:24 duloxetine HCl AdvReac Severe severe Verified 04/29/19 07:24 [From Cymbalta] headache gabapentin [From Neurontin] AdvReac HEADACHE Verified 04/29/19 07:24 Physical Exam Vitals: Vital Signs Temp Pulse Pulse Resp BP BP Pulse Ox 04/29/19 12:40 97.9 F 68 16 115/69 96 04/29/19 08:10 98.5 F 56 L 16 109/67 96 04/29/19 06:34 69 16 117/79 96 04/29/19 04:43 72 16 121/63 96 04/29/19 01:11 98.3 F 66 18 120/75 98 Intake and Output 04/29/19 04/29/19 04/29/19 06:59 14:59 22:59 Intake Total 800 Balance 800 Intake: IV 800 Sodium Chloride 0.9% 1, 800 000 ml @ 100 mls/hr IV . Q10H [facility] Rx#:[id number] Other: Weight 108.862 kg PHYSICAL EXAM: VITAL SIGNS: As above GENERAL: Sitting up in bed, no acute distress HEENT: Conjunctivae normal. eyes normal. Oral mucosa moist NECK: No JVD. No thyroid enlargement. No LNs CARDIOVASCULAR: S1, S2 muffled. No murmur RESPIRATION: Unlabored, Breath sounds clear. No rhonchi or crackles. No bronchial breathing. ABDOMEN: Soft, nondistended, tender, reddened periumbilical area with brownish drainage. No guardiing. Small umbilical hernia palpable. Bowel sounds heard. LEGS: No edema. no swelling PSYCHIATRY: Alert and oriented -3, mood and affect normal. NERVOUS SYSTEM: Cranial N 2-12 grossly normal. Moves all 4 limbs. Diffuse weakness No focal deficits. Skin: no ulcer no rash Joints: No active swelling. No inflammation. Results CBC & Chem 7: 04/29/19 03:03 04/29/19 03:03 Labs: Abnormal Lab Results - Last 24 Hours (Table) 04/29/19 Range/Units 03:45 Urine Ketones 1+ H (Negative) Microbiology - Last 24 Hours (Table) 04/29/19 12:15 Wound Culture - Preliminary Abdomen 04/29/19 12:15 Anaerobic Culture - Preliminary Abdomen Thrombosis Risk Factor Assmnt - Choose All That Apply Each Factor Represents 1 point: Age 41-60 years, Obesity (BMI >25) Thrombosis Risk Factor Assessment Total Risk Factor Score: 2 Thrombosis Risk Factor Assessment Level: Low Risk Assessment and Plan Assessment: -Acute Abdominal pain secondary to Periumbilical cellulitis -Umbilical hernia,reduced in the ER -Hypertension -Chronic back pain -Gastroesophageal reflux disease -History of polycythemia vera Plan: Continue on current medication regime ,monitoring and symptomatic treatment. Umbilical Drainage culture ordered. Continue on vancomycin. Close monitoring of renal function with repeat labs ordered for a.m. DC oxycontin, IV push morphine, IV push Dilaudid. Dilaudid [employer] DC [employer] ordered for pain management. Meds have been reviewed and resumed. Further recommendations to follow. The impression and plan of care has been dictated as directed. : I performed a history and examination of this patient, discussed the same with the dictator. I agree with the dictator's note ,documented as a scribe. Any additional findings or plans will be noted. Time taken: 35 minutes
[2019-04-29] MEDS: tiZANidine 4 MG TAB PO PRN (21:31)
[2019-04-29] MEDS: diphenhydrAMINE 25 MG CAP PO PRN (22:38)
[2019-04-30] MEDS: VANCOMYCIN 1,750 MG in SODIUM CHLORIDE 0.9% 500 ML 500 ML IVPB SCH ×3 (00:03→15:18)
[2019-04-30] MEDS: HYDROmorphone PCA 10 MG/50 ML BAG IV PRN ×2 (04:19→18:26)
[2019-04-30] MEDS: SODIUM CHLORIDE 0.9% 1,000 ML IV SCH ×2 (04:26→15:19)
[2019-04-30] MEDS: diphenhydrAMINE 25 MG CAP PO PRN (06:13)
[2019-04-30] MEDS: LEVOTHYROXINE 50 MCG TAB PO SCH (06:37)
[2019-04-30] MEDS: ASPIRIN 81 MG PO SCH (07:59)
[2019-04-30] MEDS: LISINOPRIL 10 MG TAB PO SCH ×2 (08:00→20:53)
[2019-04-30] MEDS: PANTOPRAZOLE 40 MG/10 ML VIAL IV SCH (08:00)
[2019-04-30 09:01] LABS: Basophils # (A) 0.1 k/uL (0-0.2); Basophils % (A) 1 %; Eosinophils # (A) 0.3 k/uL (0-0.7); Eosinophils % (A) 5 %; HCT 45.5 % (39.0-53.0); HGB 14.3 gm/dL (13.0-17.5); Lymphocytes # (A) 1.9 k/uL (1.0-4.8); Lymphocytes % (A) 29 %; MCH 29.4 pg (25.0-35.0); MCHC 31.4 g/dL (31.0-37.0); MCV 93.6 fL (80.0-100.0); Monocytes # (A) 0.5 k/uL (0-1.0); Monocytes % (A) 8 %; Neutrophils # (A) 3.7 k/uL (1.3-7.7); Neutrophils % (A) 56 %; Platelet Count 212 k/uL (150-450); RBC 4.86 m/uL (4.30-5.90); RDW 14.3 % (11.5-15.5); WBC 6.6 k/uL (3.8-10.6)
[2019-04-30 09:15] LABS: African American GFR (CKD) >90 (>60 ml/min/1.73 sqM); Anion Gap 6 mmol/L; Blood Urea Nitrogen 8 mg/dL (9-20); Calcium 8.5 mg/dL (8.4-10.2); Carbon Dioxide 30 mmol/L (22-30); Chloride 99 mmol/L (98-107); Glucose 91 mg/dL (74-99); Potassium 4.3 mmol/L (3.5-5.1); Sodium 135 mmol/L (137-145)
[2019-04-30] MEDS ORDERED: ACETAMINOPHEN TAB 325 MG TAB PO PRN (13:01)
--- NOTE | 2019-04-30 13:06 | P.PN ---
Subjective Progress Note Date: 04/30/19 Principal diagnosis: Periumbilical cellulitis Periumbilical cellulitis improved, white count normalized, pain appears to be well controlled Objective - Vital Signs Vital signs: Vital Signs Temp 98.1 F 04/30/19 05:37 Pulse 68 04/30/19 05:37 Resp 16 04/30/19 05:37 BP 101/62 04/30/19 05:37 Pulse Ox 94 L 04/30/19 05:37 Intake & Output 04/29/19 04/30/19 04/30/19 18:59 06:59 18:59 Intake Total 800 800 Balance 800 800 Intake: IV 800 Sodium Chloride 0.9% 1, 800 000 ml @ 100 mls/hr IV . Q10H [facility] Rx#:[id number] Intake, IV Titration 800 Amount Sodium Chloride 0.9% 1, 800 000 ml @ 100 mls/hr IV . Q10H [facility] Rx#:[id number] Other: # Voids 1 - Exam General: [Patient awake, alert and oriented times 3. Patient in no acute distress.] HEENT: [PERRL. EOMI. No pharyngeal erythema or exudate.] Neck: [No adenopathy.] Cardiac: [Heart regular in rate and rhythm. No S3. No S4. No clicks, rubs. No murmur.] Lungs: [Clear to auscultation bilaterally.] Abdomen: [No mass. No organomegaly. Bowel sounds presnt and normoactive in all 4 quadrants.] Periumbilical cellulitis resolving erythema approximately 4 cm in circumference less tender to touch Extremes: [No edema no cyanosis no claudication normal pulses] : [] Musculoskeletal: [No joint erythema, edema or tenderness.] Skin: [No rash.] Neurologic: [No lateralizing deficits. CN II - XII grossly intact.] Lymphatic: [No adenopathy.] - Labs CBC & Chem 7: 04/30/19 08:14 04/30/19 08:14 Labs: Abnormal Lab Results - Last 24 Hours (Table) 04/30/19 Range/Units 08:14 Sodium 135 L (137-145) mmol/L BUN 8 L (9-20) mg/dL Microbiology - Last 24 Hours (Table) 04/29/19 12:15 Gram Stain - Preliminary Abdomen Wound Culture - Preliminary 04/29/19 12:15 Anaerobic Culture - Preliminary Abdomen Assessment and Plan (1) Abdominal pain Current Visit: Yes Status: Acute Code(s): R10.9 - UNSPECIFIED ABDOMINAL PAIN SNOMED Code(s): 28590340 (2) Cellulitis Current Visit: Yes Status: Acute Code(s): L03.90 - CELLULITIS, UNSPECIFIED SNOMED Code(s): 825466121 (3) Hernia Current Visit: Yes Status: Acute Code(s): K46.9 - UNSPECIFIED ABDOMINAL HERNIA WITHOUT OBSTRUCTION OR GANGRENE SNOMED Code(s): 66718885 Plan: Continue IV antibiotics Waiting on final culture report Aggressive pain management Time with Patient: Greater than 30
[2019-04-30] MEDS ORDERED: VANCOMYCIN TROUGH DUE 1 EACH MISC MISCELLANE ONE (15:00)
[2019-04-30] MEDS: tiZANidine 4 MG TAB PO PRN (15:19)
[2019-04-30] MEDS: hydrOXYzine PAMOATE 25 MG CAP PO SCH (15:19)
[2019-04-30] MEDS ORDERED: TESTOSTERONE CYPIONATE 200 MG/ML 1ML VIAL IM SCH (19:00)
[2019-05-01] MEDS: hydrOXYzine PAMOATE 25 MG CAP PO SCH ×3 (00:43→16:10)
[2019-05-01] MEDS: VANCOMYCIN 1,750 MG in SODIUM CHLORIDE 0.9% 500 ML 500 ML IVPB SCH ×3 (00:43→16:09)
[2019-05-01] MEDS: tiZANidine 4 MG TAB PO PRN ×3 (00:51→21:53)
[2019-05-01] MEDS: SODIUM CHLORIDE 0.9% 1,000 ML IV SCH ×3 (00:51→20:54)
[2019-05-01] MEDS: LEVOTHYROXINE 50 MCG TAB PO SCH (06:05)
[2019-05-01 08:36] LABS: African American GFR (CKD) >90 (>60 ml/min/1.73 sqM)
[2019-05-01] MEDS: LISINOPRIL 10 MG TAB PO SCH ×2 (08:56→20:56)
[2019-05-01] MEDS: PANTOPRAZOLE 40 MG TABLET PO SCH (08:56)
[2019-05-01] MEDS: ASPIRIN 81 MG PO SCH (08:56)
[2019-05-01] MEDS: amLODIPine 5 MG TAB PO SCH (08:56)
[2019-05-01] MEDS: HYDROmorphone PCA 10 MG/50 ML BAG IV PRN (09:14)
[2019-05-01 10:54] LABS: Basophils # (A) 0.1 k/uL (0-0.2); Basophils % (A) 1 %; Eosinophils # (A) 0.4 k/uL (0-0.7); Eosinophils % (A) 5 %; HCT 45.6 % (39.0-53.0); HGB 14.6 gm/dL (13.0-17.5); Lymphocytes # (A) 1.8 k/uL (1.0-4.8); Lymphocytes % (A) 20 %; MCV 93.6 fL (80.0-100.0); Mean Platelet Volume 9.2; Monocytes # (A) 0.7 k/uL (0-1.0); Monocytes % (A) 8 %; Neutrophils # (A) 5.7 k/uL (1.3-7.7); Neutrophils % (A) 65 %; Platelet Count 209 k/uL (150-450); RBC 4.87 m/uL (4.30-5.90); RDW 13.4 % (11.5-15.5); WBC 8.8 k/uL (3.8-10.6)
--- NOTE | 2019-05-01 11:01 | P.PN ---
Subjective Progress Note Date: 05/01/19 Principal diagnosis: Periumbilical cellulitis Periumbilical cellulitis improved, white count normalized, pain appears to be well controlled 05/01/2019 Periumbilical cellulitis improved white count is normalized patient's feeling a little more abdominal discomfort probably secondary to constipation. We will add Senokot tabs 1 or 2 twice daily to treat the constipation. Will also be adding Rocephin 1 g every 24 hours for aggressive coverage Waiting on culture report no final yet Objective - Vital Signs Vital signs: Vital Signs Temp 97.7 F 05/01/19 05:58 Pulse 58 L 05/01/19 05:58 Resp 16 05/01/19 05:58 BP 111/57 05/01/19 05:58 Pulse Ox 95 05/01/19 05:58 Intake & Output 04/30/19 05/01/19 05/01/19 18:59 06:59 18:59 Intake Total 1080 Balance 1080 Intake: Oral 1080 Other: Voiding Method Toilet # Voids 2 1 - Exam General: [Patient awake, alert and oriented times 3. Patient in no acute distress.] HEENT: [PERRL. EOMI. No pharyngeal erythema or exudate.] Neck: [No adenopathy.] Cardiac: [Heart regular in rate and rhythm. No S3. No S4. No clicks, rubs. No murmur.] Lungs: [Clear to auscultation bilaterally.] Abdomen: [No mass. No organomegaly. Bowel sounds presnt and normoactive in all 4 quadrants.] Periumbilical cellulitis resolving erythema approximately 1 cm in circumference less tender to touch Extremes: [No edema no cyanosis no claudication normal pulses] : [] Musculoskeletal: [No joint erythema, edema or tenderness.] Skin: [No rash.] Neurologic: [No lateralizing deficits. CN II - XII grossly intact.] Lymphatic: [No adenopathy.] - Labs CBC & Chem 7: 05/01/19 07:41 05/01/19 07:41 Assessment and Plan (1) Abdominal pain Current Visit: Yes Status: Acute Code(s): R10.9 - UNSPECIFIED ABDOMINAL PAIN SNOMED Code(s): 86144239 (2) Cellulitis Current Visit: Yes Status: Acute Code(s): L03.90 - CELLULITIS, UNSPECIFIED SNOMED Code(s): 618773683 (3) Hernia Current Visit: Yes Status: Acute Code(s): K46.9 - UNSPECIFIED ABDOMINAL HERNIA WITHOUT OBSTRUCTION OR GANGRENE SNOMED Code(s): 21836963 Plan: Continue IV antibiotics Waiting on final culture report Added Rocephin 1 g every 24 hours, continue Vanco as scheduled Add stool softeners for constipation Aggressive pain management Time with Patient: Greater than 30
[2019-05-01] MEDS ORDERED: SENNOSIDES-DOCUSATE SODIUM 1 EACH TAB PO PRN (12:19)
[2019-05-01 22:11] VITALS: RESP 18
[2019-05-02] MEDS: hydrOXYzine PAMOATE 25 MG CAP PO SCH ×3 (00:06→16:23)
[2019-05-02] MEDS: VANCOMYCIN 1,750 MG in SODIUM CHLORIDE 0.9% 500 ML 500 ML IVPB SCH ×3 (00:07→16:22)
[2019-05-02] MEDS: HYDROmorphone PCA 10 MG/50 ML BAG IV PRN (04:46)
[2019-05-02] MEDS: SODIUM CHLORIDE 0.9% 1,000 ML IV SCH ×2 (05:42→16:23)
[2019-05-02] MEDS: LEVOTHYROXINE 50 MCG TAB PO SCH (05:42)
[2019-05-02] MEDS: ASPIRIN 81 MG PO SCH (08:00)
[2019-05-02] MEDS: PANTOPRAZOLE 40 MG TABLET PO SCH (08:00)
[2019-05-02] MEDS: LISINOPRIL 10 MG TAB PO SCH (08:01)
[2019-05-02] MEDS: amLODIPine 5 MG TAB PO SCH (09:15)
[2019-05-02 09:18] LABS: African American GFR (CKD) >90 (>60 ml/min/1.73 sqM)
[2019-05-02 14:56] VITALS: BP 148/78; PULSE 84; TEMP 99.2
--- NOTE | 2019-05-02 16:43 | XR ---
Abdomen HISTORY: Nausea and abdominal pain Frontal view of the abdomen on 2 images correlated to prior abdomen 03/17/2019, CT 04/29/2019 Surgical clips are again noted in the right upper quadrant. Lung bases are clear. There is no evident bowel obstruction or pneumoperitoneum. Retained fecal debris present to lesser the distribution of t he colon. There are some indeterminate calcifications overlying the right lower quadrant as on prior exam corresponding to benign-appearing metallic densities associated with the bowel, possibly postsur gical. Bone mineralization is normal. IMPRESSION: No acute abnormality. Correlate for fecal stasis.
--- NOTE | 2019-05-02 17:34 | P.DS ---
Providers Date of admission: 05/01/19 12:55 Expected date of discharge: 05/02/19 Attending physician: Ryan Loving Primary care physician: [facility] Course: Final Diagnoses: -Acute Abdominal pain secondary to Periumbilical cellulitis -Umbilical hernia,reduced in the ER, possibly Richters hernia -Hypertension -Chronic back pain -Gastroesophageal reflux disease -History of polycythemia vera Hospital course:This a 39-year-old gentleman presented to the ER with complaints of periumbilical abdominal pain that occurred yesterday afternoon after returning home from work,in a patient with history of polycythemia vera, hype rtension, on oral supplementation of testosterone and multiple other medical issues. Patient's job requires heavy lifting on a daily basis, reports he only lifted about 5 pounds yesterday. Did not have any signs or symptoms of pain until after he was home. He began having severe continuous, nonradiating periumbilical pain. He reports a small lump at the umbilicus. Positive nausea, denies vomiting or diarrhea. Passing flatus, last bowel movement yesterday. Denies problems voiding. Denies lightheadedness dizziness or focal deficits. Denies chest pain, palpitations or shortness of breath. Abdomen/pelvis CT reported no bowel obstruction no free intraperitoneal fluid or pneumoperitoneum, stable renal contours no hydronephrosis, no ureteral stones with incidental subcentimeter nephrolithiasis within the mid to inferior left kidney, increased fat density within the subcutaneous tissues noted in the peter-umbilical region possible edema or focal inflammation at the umbilicus with no loculated fluid collection or extension into the intraperitoneal space. Small umbilical hernia reduced in the ER. Afebrile, normal WBC. CBC, BMP unremarkable. Periumbilical cellulitis improved white count is normalized patient's feeling a little more abdominal discomfort probably secondary to constipation. We will add Senokot tabs 1 or 2 twice daily to treat the constipation. Will also be adding Rocephin 1 g every 24 hours for aggressive coverage Waiting on culture report no final yet Maintained on IV antibiotics, IV antibiotics of Rocephin, Vanco, stool softeners and aggressive pain management. Reports positive bowel movement. Gram stain reporting rare gram-positive cocci, rare gram-positive bacilli, aerobic wound culture reporting few normal skin mary anne. Anaerobic pending. Flat plate of the abdomen ordered to rule out abscess.Significant clinical improvement. Patient will be discharged home pending radiology film findings in a stable condition with guarded prognosis. EXAM: VITAL SIGNS: As above GENERAL: Sitting up in bed, no acute distress HEENT: Conjunctivae normal. eyes normal. Oral mucosa moist NECK: No JVD. No thyroid enlargement. No LNs CARDIOVASCULAR: S1, S2 muffled. No murmur RESPIRATION: Unlabored, Breath sounds clear. No rhonchi or crackles. No bronchial breathing. ABDOMEN: Soft, nondistended, tender periumbilical cellulitis resolving. Small umbilical hernia palpable. Bowel sounds heard. LEGS: No edema. no swelling PSYCHIATRY: Alert and oriented -3, mood and affect normal. NERVOUS SYSTEM: Cranial N 2-12 grossly normal. Moves all 4 limbs. Diffuse weakness No focal deficits. Skin: no ulcer no rash Joints: No active swelling. No inflammation. Microbiology 04/29/19 12:15 Abdomen Gram Stain - Final 04/29/19 12:15 Abdomen Wound Culture - Final 04/29/19 12:15 Abdomen Anaerobic Culture - Preliminary The impression and plan of care has been dictated as directed. : I performed a history and examination of this patient, discussed the same with the dictator. I agree with the dictator's note ,documented as a scribe. Any additional findings or plans will be noted. Time taken: 35 minutes Patient Condition at Discharge: Stable Plan - Discharge Summary Discharge Rx Participant: No New Discharge Prescriptions: New Dicyclomine [Bentyl] 10 mg PO QID #40 capsule Clotrimazole Cream [Lotrimin Cream] 1 applic TOPICAL BID #1 tube Continue Levothyroxine Sodium [Synthroid] 50 mcg PO DAILY oxyCODONE HCL [OxyIR] 10 mg PO BID PRN PRN Reason: Pain tiZANidine HCL [Zanaflex] 8 mg PO HS PRN PRN Reason: Pain Lisinopril [Zestril] 10 mg PO BID Testosterone Cypionate [Depo-Testosterone] 130 mg IM Q72H Aspirin EC [Ecotrin Low Dose] 81 mg PO DAILY #30 tablet. amLODIPine [Norvasc] 5 mg PO DAILY Ibuprofen [Advil] 200 mg PO Q8HR PRN PRN Reason: Pain Acetaminophen Tab [Tylenol] 650 mg PO Q6H PRN PRN Reason: Pain Discharge Medication List Levothyroxine Sodium [Synthroid] 50 mcg PO DAILY 03/30/14 [History] oxyCODONE HCL [OxyIR] 10 mg PO BID PRN 11/08/17 [History] tiZANidine HCL [Zanaflex] 8 mg PO HS PRN 01/13/19 [History] Lisinopril [Zestril] 10 mg PO BID 01/26/19 [History] Testosterone Cypionate [Depo-Testosterone] 130 mg IM Q72H 01/26/19 [History] Aspirin EC [Ecotrin Low Dose] 81 mg PO DAILY #30 tablet. 01/27/19 [Rx] Acetaminophen Tab [Tylenol] 650 mg PO Q6H PRN 04/29/19 [History] Ibuprofen [Advil] 200 mg PO Q8HR PRN 04/29/19 [History] amLODIPine [Norvasc] 5 mg PO DAILY 04/29/19 [History] Clotrimazole Cream [Lotrimin Cream] 1 applic TOPICAL BID #1 tube 05/02/19 [Rx] Dicyclomine [Bentyl] 10 mg PO QID #40 capsule 05/02/19 [Rx] Follow up Appointment(s)/Referral(s): Ryan Loving Jr, [Primary Care Provider] - 05/05/19 11:00 am Ambulatory/Diagnostic Orders: Complete Blood Count w/diff [LAB.AMB] Time Frame: 3 Days, Location: None Selected Patient Instructions/Handouts: Cellulitis (ED), Umbilical Hernia (ED), Abdominal Pain (ED) Activity/Diet/Wound Care/Special Instructions: Pending. Flat plate of abdomen results. Fax Final anaerobic culture results to Dr. Loving
== END 2019-05-02 18:19 | disposition home or self-care (01) | DRG 603 ==
LOC: EC 00:44 → 4MS4W 07:12 → OBSVTOIN 05-01 12:55
PROVIDERS: ADMIT Family Medicine; ATTEND Family Medicine
DX: L03.316 Cellulitis of umbilicus (principal); K46.0 Unspecified abdominal hernia with obstruction, without gangrene; K21.9 Gastro-esophageal reflux disease without esophagitis; I10 Essential (primary) hypertension; G89.29 Other chronic pain; D45 Polycythemia vera; M54.9 Dorsalgia, unspecified; K59.00 Constipation, unspecified; Z79.82 Long term (current) use of aspirin; Z79.890 Hormone replacement therapy; Z79.899 Other long term (current) drug therapy; Z87.442 Personal history of urinary calculi; Z90.49 Acquired absence of other specified parts of digestive tract; Z88.8 Allergy status to other drugs, medicaments and biological substances; Z98.890 Other specified postprocedural states; Z81.8 Family history of other mental and behavioral disorders
CPT/HCPCS: 36415; 74018; 74176; 80048; 80053; 80202; 81003; 82150; 82565; 83605; 83690; 85025; 87070; 87075; 87205; 96365; 96366; 96368; 96375; 96376; 99285

== ENCOUNTER 2019-05-24 17:59 | Emergency (ER) | payer OTHER ==
[2019-05-24] MEDS ORDERED: ONDANSETRON 4 MG/2 ML VIAL IVP STA (18:22)
[2019-05-24] MEDS ORDERED: SODIUM CHLORIDE 0.9% 1,000 ML IV STA (18:22)
[2019-05-24] MEDS ORDERED: HYDROmorphone 1 MG/ML 1 ML SYRINGE IVP STA ×2 (18:22→20:55)
--- NOTE | 2019-05-24 18:41 | ED ---
Abdominal Pain HPI - General Chief Complaint: Abdominal Pain Stated Complaint: hernia/groin pain Time Seen by Provider: 05/24/19 18:14 Source: patient Mode of arrival: ambulatory Limitations: no limitations - History of Present Illness Initial Comments: 39-year-old male patient who is recently admitted for periumbilical hernia with periumbilical cellulitis presents to the emergency department today for evaluation of periumbilical pain radiating to the right testicle. Patient states that he has had some element of pain to the area since being discharged. States that the pain worsened over the last 24 hours. Patient states that he is unable to move without significant discomfort. States he has been having loose bowel movements. Denies any fever or chills. Denies any nausea or vomiting. Patient states he is able to eat but the pain does worsen after eating. Patient does have history of cholecystectomy and appendectomy. Patient denies any recent rash, shortness breath, chest pain, back pain, numbness, tingling, dizziness, weakness, hematuria, dysuria, urinary urgency, urinary frequency, headache, visual changes, or any other complaints. - Related Data Home Medications Medication Instructions Recorded Confirmed Levothyroxine Sodium [Synthroid] 50 mcg PO DAILY 03/30/14 04/29/19 oxyCODONE HCL [OxyIR] 10 mg PO BID PRN 11/08/17 04/29/19 tiZANidine HCL [Zanaflex] 8 mg PO HS PRN 01/13/19 04/29/19 Lisinopril [Zestril] 10 mg PO BID 01/26/19 04/29/19 Testosterone Cypionate 130 mg IM Q72H 01/26/19 04/29/19 [Depo-Testosterone] Acetaminophen Tab [Tylenol] 650 mg PO Q6H PRN 04/29/19 04/29/19 Ibuprofen [Advil] 200 mg PO Q8HR PRN 04/29/19 04/29/19 amLODIPine [Norvasc] 5 mg PO DAILY 04/29/19 04/29/19 Previous Rx's Medication Instructions Recorded Aspirin EC [Ecotrin Low Dose] 81 mg PO DAILY #30 tablet. 01/27/19 Clotrimazole Cream [Lotrimin Cream] 1 applic TOPICAL BID #1 tube 05/02/19 Dicyclomine [Bentyl] 10 mg PO QID #40 capsule 05/02/19 Allergies Allergy/AdvReac Type Severity Reaction Status Date / Time benzalkonium chloride Allergy Severe Swelling Verified 05/24/19 18:06 duloxetine HCl AdvReac Severe severe Verified 05/24/19 18:06 [From Cymbalta] headache gabapentin [From Neurontin] AdvReac HEADACHE Verified 05/24/19 18:06 Review of Systems ROS Statement: Those systems with pertinent positive or pertinent negative responses have been documented in the HPI. ROS Other: All systems not noted in ROS Statement are negative. Past Medical History Past Medical History: GERD/Reflux, Hypertension, Thyroid Disorder Additional Past Medical History / Comment(s): KIDNEY STONE,CHRONIC BACK PAIN, History of Any Multi-Drug Resistant Organisms: None Reported Past Surgical History: Appendectomy, Cholecystectomy Additional Past Surgical History / Comment(s): PAIN PROCEDURES, Past Anesthesia/Blood Transfusion Reactions: Previous Problems w/ Anesthesia Additional Past Anesthesia/Blood Transfusion Reaction / Comment(s): STATES "NOVOCAINE DOESN'T WORK ON ME" "TAKES MORE THAN NORMAL TO PUT ME OUT" Past Psychological History: No Psychological Hx Reported Smoking Status: Never smoker Past Alcohol Use History: None Reported Past Drug Use History: None Reported - Past Family History Mother History Unknown: Yes Family Medical History: Dementia Father Additional Family Medical History / Comment(s): SMOKER. General Exam Limitations: no limitations General appearance: alert, in no apparent distress, other (This is a well- developed, well-nourished adult male patient in no acute distress. Vital signs upon presentation are temperature 98.2F, pulse 71, respiration 16, blood pressure 117/77, pulse ox 98% on room air.) Eye exam: Present: normal appearance, PERRL, EOMI. Absent: scleral icterus, conjunctival injection, periorbital swelling ENT exam: Present: normal exam, normal oropharynx, mucous membranes moist Respiratory exam: Present: normal lung sounds bilaterally. Absent: respiratory distress, wheezes, rales, rhonchi, stridor Cardiovascular Exam: Present: regular rate, normal rhythm, normal heart sounds. Absent: systolic murmur, diastolic murmur, rubs, gallop, clicks GI/Abdominal exam: Present: soft, tenderness (Periumbilical tenderness, suprapubic tenderness), normal bowel sounds. Absent: distended, guarding, irene ound, rigid Neurological exam: Present: alert, oriented X3, CN II-XII intact Psychiatric exam: Present: normal affect, normal mood Skin exam: Present: warm, dry, intact, normal color. Absent: rash Course Vital Signs 05/24/19 05/24/19 05/24/19 18:04 21:05 22:11 Temperature 98.2 F 98.4 F Pulse Rate 71 72 81 Respiratory 16 18 18 Rate Blood Pressure 117/77 100/58 112/78 O2 Sat by Pulse 98 98 98 Oximetry Medical Decision Making - Medical Decision Making 39-year-old male patient presents to the emergency department today for evaluation of periumbilical abdominal pain. Physical examination did reveal some mild periumbilical tenderness. Labs reviewed and are unremarkable. CT abdomen and pelvis was obtained and showed no acute abnormalities. I did discuss findings and results with the patient. He is instructed to follow-up with his primary care physician for recheck in 1-2 days. He is urged discuss colonoscopy if symptoms aren't improved. Return parameters were discussed in detail. He verbalizes understanding and agrees with this plan. - Lab Data Result diagrams: 05/24/19 18:32 05/24/19 18:32 Lab Results 05/24/19 05/24/19 05/24/19 Range/Units 18:32 18:32 18:32 WBC 8.8 (3.8-10.6) k/uL RBC 5.79 (4.30-5.90) m/uL Hgb 17.3 (13.0-17.5) gm/dL Hct 53.1 H (39.0-53.0) % MCV 91.8 (80.0-100.0) fL MCH 29.9 (25.0-35.0) pg MCHC 32.6 (31.0-37.0) g/dL RDW 13.1 (11.5-15.5) % Plt Count 237 (150-450) k/uL Neutrophils % 65 % Lymphocytes % 20 % Monocytes % 7 % Eosinophils % 4 % Basophils % 1 % Neutrophils # 5.8 (1.3-7.7) k/uL Lymphocytes # 1.8 (1.0-4.8) k/uL Monocytes # 0.6 (0-1.0) k/uL Eosinophils # 0.3 (0-0.7) k/uL Basophils # 0.1 (0-0.2) k/uL Sodium 139 (137-145) mmol/L Potassium 4.3 (3.5-5.1) mmol/L Chloride 101 (98-107) mmol/L Carbon Dioxide 26 (22-30) mmol/L Anion Gap 12 mmol/L BUN 15 (9-20) mg/dL Creatinine 1.07 (0.66-1.25) mg/dL Est GFR (CKD-EPI)AfAm >90 (>60 ml/min/1.73 sqM) Est GFR (CKD-EPI)NonAf 87 (>60 ml/min/1.73 sqM) Glucose 89 (74-99) mg/dL Plasma Lactic Acid [place] 1.2 (0.7-2.0) mmol/L Calcium 9.6 (8.4-10.2) mg/dL Total Bilirubin 0.4 (0.2-1.3) mg/dL AST 28 (17-59) U/L ALT 28 (21-72) U/L Alkaline Phosphatase 52 (38-126) U/L Total Protein 7.9 (6.3-8.2) g/dL Albumin 4.7 (3.5-5.0) g/dL Amylase 60 (30-110) U/L Lipase 361 H (23-300) U/L Urine Color Urine Appearance (Clear) Urine pH (5.0-8.0) Ur Specific [place] (1.001-1.035) Urine Protein (Negative) Urine Glucose (UA) (Negative) Urine Ketones (Negative) Urine Blood (Negative) Urine Nitrite (Negative) Urine Bilirubin (Negative) Urine Urobilinogen (<2.0) mg/dL Ur Leukocyte Esterase (Negative) Urine RBC (0-5) /hpf Urine WBC (0-5) /hpf Urine Mucus (None) /hpf 05/24/19 Range/Units 18:32 WBC (3.8-10.6) k/uL RBC (4.30-5.90) m/uL Hgb (13.0-17.5) gm/dL Hct (39.0-53.0) % MCV (80.0-100.0) fL MCH (25.0-35.0) pg MCHC (31.0-37.0) g/dL RDW (11.5-15.5) % Plt Count (150-450) k/uL Neutrophils % % Lymphocytes % % Monocytes % % Eosinophils % % Basophils % % Neutrophils # (1.3-7.7) k/uL Lymphocytes # (1.0-4.8) k/uL Monocytes # (0-1.0) k/uL Eosinophils # (0-0.7) k/uL Basophils # (0-0.2) k/uL Sodium (137-145) mmol/L Potassium (3.5-5.1) mmol/L Chloride (98-107) mmol/L Carbon Dioxide (22-30) mmol/L Anion Gap mmol/L BUN (9-20) mg/dL Creatinine (0.66-1.25) mg/dL Est GFR (CKD-EPI)AfAm (>60 ml/min/1.73 sqM) Est GFR (CKD-EPI)NonAf (>60 ml/min/1.73 sqM) Glucose (74-99) mg/dL Plasma Lactic Acid [place] (0.7-2.0) mmol/L Calcium (8.4-10.2) mg/dL Total Bilirubin (0.2-1.3) mg/dL AST (17-59) U/L ALT (21-72) U/L Alkaline Phosphatase (38-126) U/L Total Protein (6.3-8.2) g/dL Albumin (3.5-5.0) g/dL Amylase (30-110) U/L Lipase (23-300) U/L Urine Color Yellow Urine Appearance Clear (Clear) Urine pH 6.0 (5.0-8.0) Ur Specific [place] 1.020 (1.001-1.035) Urine Protein Negative (Negative) Urine Glucose (UA) Negative (Negative) Urine Ketones Negative (Negative) Urine Blood Trace H (Negative) Urine Nitrite Negative (Negative) Urine Bilirubin Negative (Negative) Urine Urobilinogen <2.0 (<2.0) mg/dL Ur Leukocyte Esterase Negative (Negative) Urine RBC 5 (0-5) /hpf Urine WBC 1 (0-5) /hpf Urine Mucus Rare H (None) /hpf - Radiology Data Radiology results: report reviewed, image reviewed CT abdomen and pelvis was obtained with contrast. Report was reviewed in its entirety. Impression by Dr. Phoenix shows no acute process. Disposition Clinical Impression: Abdominal pain Disposition: HOME SELF-CARE Condition: Good Instructions (If sedation given, give patient instructions): Abdominal Pain (ED) Additional Instructions: Increase fluids. Stop Bentyl. Follow-up through primary care physician for recheck in 1-2 days. Return to the emergency department immediately for any new, worsening, or concerning symptoms. Is patient prescribed a controlled substance at d/c from ED?: No Referrals: Ryan Loving Jr, [Primary Care Provider] - 1-2 days Time of Disposition: 21:57
[2019-05-24 18:51] LABS: Basophils # (A) 0.1 k/uL (0-0.2); Basophils % (A) 1 %; Eosinophils # (A) 0.3 k/uL (0-0.7); Eosinophils % (A) 4 %; HCT 53.1 % (39.0-53.0); HGB 17.3 gm/dL (13.0-17.5); Lymphocytes # (A) 1.8 k/uL (1.0-4.8); Lymphocytes % (A) 20 %; MCH 29.9 pg (25.0-35.0); MCHC 32.6 g/dL (31.0-37.0); MCV 91.8 fL (80.0-100.0); Mean Platelet Volume 8.6; Monocytes # (A) 0.6 k/uL (0-1.0); Monocytes % (A) 7 %; Neutrophils # (A) 5.8 k/uL (1.3-7.7); Neutrophils % (A) 65 %; Platelet Count 237 k/uL (150-450); RBC 5.79 m/uL (4.30-5.90); RDW 13.1 % (11.5-15.5); WBC 8.8 k/uL (3.8-10.6)
[2019-05-24 18:56] LABS: Appearance,Urine Clear (Clear); Bilirubin,Urine Negative (Negative); Blood,Urine Trace (Negative); Color,Urine Yellow; Glucose,Urine (UA) Negative (Negative); Ketones,Urine Negative (Negative); Leukocyte Esterase,Urine Negative (Negative); Mucus,Urine Rare /hpf; Nitrite,Urine Negative (Negative); Protein,Urine Negative (Negative); RBC,Urine 5 /hpf (0-5); Urobilinogen,Urine <2.0 mg/dL (<2.0); WBC,Urine 1 /hpf (0-5)
[2019-05-24 19:01] LABS: ALT 28 U/L (21-72); AST 28 U/L (17-59); African American GFR (CKD) >90 (>60 ml/min/1.73 sqM); Albumin 4.7 g/dL (3.5-5.0); Alkaline Phosphatase 52 U/L (38-126); Amylase 60 U/L (30-110); Anion Gap 12 mmol/L; Blood Urea Nitrogen 15 mg/dL (9-20); Calcium 9.6 mg/dL (8.4-10.2); Carbon Dioxide 26 mmol/L (22-30); Chloride 101 mmol/L (98-107); Glucose 89 mg/dL (74-99); Potassium 4.3 mmol/L (3.5-5.1); Sodium 139 mmol/L (137-145); Total Bilirubin 0.4 mg/dL (0.2-1.3); Total Protein 7.9 g/dL (6.3-8.2)
[2019-05-24 21:07] VITALS: RESP 18
--- NOTE | 2019-05-24 21:19 | CT ---
EXAMINATION TYPE: CT abdomen pelvis w con DATE OF EXAM: 05/24/2019 COMPARISON: 04/29/2019 HISTORY: abdominal and groin pain, hx of hernia CT DLP: 1456.7 mGycm Automated exposure control for dose reduction was used. TECHNIQUE: Helical acquisition of images was performed from the lung bases through the pelvis. CONTRAST: Performed without Oral Contrast and with IV Contrast, patient injected with 50 mL of Isovue 370. FINDINGS: LUNG BASES: No acute findings. LIVER/GB: No significant abnormality is appreciated. PANCREAS: No significant abnormality is seen. SPLEEN: No significant abnormality is seen. ADRENALS: No significant abnormality is seen. KIDNEYS: No significant abnormality is seen. FREE AIR: No free air is visualized. RETROPERITONEAL ADENOPATHY: None visualized REPRODUCTIVE ORGANS: No significant abnormality is seen URINARY BLADDER: No significant abnormality is seen. PELVIC ADENOPATHY: None visualized. OSSEOUS STRUCTURES: No significant abnormality is seen. BOWEL: No significant abnormality is seen. OTHER: No acute vascular findings. The anterior abdominal wall musculature is intact; there is no her niation. IMPRESSION: NO ACUTE PROCESS.
[2019-05-24 22:11] VITALS: BP 112/78; PULSE 81; TEMP 98.4
== END 2019-05-24 22:10 | disposition home or self-care (01) ==
LOC: EC 17:59
DX: R10.33 Periumbilical pain (principal); N50.811 Right testicular pain; R19.5 Other fecal abnormalities; I10 Essential (primary) hypertension; E07.9 Disorder of thyroid, unspecified; Z88.8 Allergy status to other drugs, medicaments and biological substances; Z79.890 Hormone replacement therapy; Z79.899 Other long term (current) drug therapy; Z87.19 Personal history of other diseases of the digestive system; Z90.49 Acquired absence of other specified parts of digestive tract
CPT/HCPCS: 36415; 80053; 82150; 83605; 83690; 85025; 81001; 74177; 99284; 96374; 96375; 96376; 96361; J2405; J1170; Q9967

== ENCOUNTER 2019-06-02 03:47 | Emergency (ER) | payer OTHER ==
[2019-06-02 04:47] LABS: Appearance,Urine Cloudy (Clear); Bilirubin,Urine Negative (Negative); Blood,Urine Large (Negative); Color,Urine Yellow; Glucose,Urine (UA) Negative (Negative); Granular Casts,Urine 1 /lpf (0); Hyaline Casts,Urine 3 /lpf (0-2); Ketones,Urine 1+ (Negative); Leukocyte Esterase,Urine Trace (Negative); Mucus,Urine Few /hpf; Nitrite,Urine Negative (Negative); PH, Urine 5.5 (5.0-8.0); Protein,Urine 1+ (Negative); RBC,Urine >182 /hpf (0-5); Specific Gravity,Urine 1.022 (1.001-1.035); Urobilinogen,Urine <2.0 mg/dL (<2.0); WBC,Urine 4 /hpf (0-5)
[2019-06-02] MEDS ORDERED: ONDANSETRON 4 MG/2 ML VIAL IVP STA (05:25)
[2019-06-02] MEDS ORDERED: MORPHINE SULFATE 4 MG/ML SYRINGE IVP STA (05:25)
[2019-06-02] MEDS ORDERED: PHENAZOPYRIDINE 200 MG TAB PO STA (05:26)
--- NOTE | 2019-06-02 05:27 | ED ---
General Adult HPI <Jim Null - Last Filed: 06/02/19 09:20> - General Source: patient Mode of arrival: ambulatory Limitations: no limitations <Vivien Rice - Last Filed: 06/02/19 21:10> - General Chief complaint: Urogenital Stated complaint: Urine Retention Time Seen by Provider: 06/02/19 03:55 - History of Present Illness Initial comments: Shakira is a 39-year-old gentleman with a history of recurrent kidney stones who presents the emergency Department today with complaint of left-sided flank pain, constant urge to urinate, dysuria, and hematuria. She reports this pain is similar to previous kidney stones but worse. Patient was seen and evaluated last week at which time he urinated a stone but was not sent for analysis. She reports he has associated nausea but no vomiting, no change in bowel habits. (Vivien Rice) - Related Data Home Medications Medication Instructions Recorded Confirmed Levothyroxine Sodium [Synthroid] 50 mcg PO DAILY 03/30/14 06/02/19 tiZANidine HCL [Zanaflex] 8 mg PO HS PRN 01/13/19 06/02/19 Lisinopril [Zestril] 10 mg PO BID 01/26/19 06/02/19 Testosterone Cypionate 130 mg IM Q72H 01/26/19 06/02/19 [Depo-Testosterone] Acetaminophen Tab [Tylenol] 650 mg PO Q6H PRN 04/29/19 06/02/19 Ibuprofen [Advil] 200 mg PO Q8HR PRN 04/29/19 06/02/19 amLODIPine [Norvasc] 5 mg PO DAILY 04/29/19 06/02/19 Previous Rx's Medication Instructions Recorded Aspirin EC [Ecotrin Low Dose] 81 mg PO DAILY #30 tablet. 01/27/19 Ketorolac [Toradol] 10 mg PO Q6HR PRN #15 tab 06/02/19 Metoclopramide HCl [Reglan] 10 mg PO Q6HR PRN #15 tablet 06/02/19 Tamsulosin [Flomax] 0.4 mg PO DAILY #14 cap 06/02/19 Allergies Allergy/AdvReac Type Severity Reaction Status Date / Time benzalkonium chloride Allergy Severe Swelling Verified 05/24/19 18:06 duloxetine HCl AdvReac Severe severe Verified 05/24/19 18:06 [From Cymbalta] headache gabapentin [From Neurontin] AdvReac HEADACHE Verified 05/24/19 18:06 Review of Systems ROS Other: All systems not noted in ROS Statement are negative. <Jim Null - Last Filed: 06/02/19 09:20> ROS Other: All systems not noted in ROS Statement are negative. <Vivien Rice - Last Filed: 06/02/19 21:10> ROS Statement: Those systems with pertinent positive or pertinent negative responses have been documented in the HPI. Past Medical History Past Medical History: GERD/Reflux, Hypertension, Thyroid Disorder Additional Past Medical History / Comment(s): KIDNEY STONE,CHRONIC BACK PAIN, History of Any Multi-Drug Resistant Organisms: None Reported Past Surgical History: Appendectomy, Cholecystectomy Additional Past Surgical History / Comment(s): PAIN PROCEDURES, Past Anesthesia/Blood Transfusion Reactions: Previous Problems w/ Anesthesia Additional Past Anesthesia/Blood Transfusion Reaction / Comment(s): STATES "NOVOCAINE DOESN'T WORK ON ME" "TAKES MORE THAN NORMAL TO PUT ME OUT" Past Psychological History: No Psychological Hx Reported Smoking Status: Never smoker Past Alcohol Use History: None Reported Past Drug Use History: None Reported - Past Family History Mother History Unknown: Yes Family Medical History: Dementia Father Additional Family Medical History / Comment(s): SMOKER. <Vivien Rice P - Last Filed: 06/02/19 21:10> General Exam Limitations: no limitations <Vivien Rice - Last Filed: 06/02/19 21:10> - General Exam Comments Initial Comments: Physical Exam GENERAL: Patient is well-developed and well-nourished. Patient is nontoxic and well- hydrated and is in no distress. HENT: Normocephalic, Atraumatic. EYES: PERRL, EOMI PULMONARY: Unlabored respirations. No audible rales rhonchi or wheezing was noted. CARDIOVASCULAR: There is a regular rate and rhythm without any murmurs gallops or rubs. ABDOMEN: Left Sided flank pain to percussion SKIN: Skin is clear with no lesions or rashes and otherwise unremarkable. : Deferred NEUROLOGIC: Patient is alert and oriented x3. Moving all extremities spontaneously MUSCULOSKELETAL: Normal extremities with adequate strength and full range of motion. No lower extremity swelling or edema. No calf tenderness. PSYCHIATRIC: Normal psychiatric evaluation. (Vivien Rice) Course Vital Signs 06/02/19 06/02/19 06/02/19 03:49 05:35 06:51 Temperature 98.1 F Pulse Rate 92 69 86 Respiratory 18 18 16 Rate Blood Pressure 171/78 134/87 112/80 O2 Sat by Pulse 100 97 97 Oximetry 06/02/19 09:35 Temperature 98 F Pulse Rate 70 Respiratory 18 Rate Blood Pressure 122/81 O2 Sat by Pulse 97 Oximetry Medical Decision Making - Lab Data Result diagrams: 06/02/19 04:30 06/02/19 04:30 - Radiology Data Radiology results: report reviewed (Computed tomography scan of the abdomen pelvis shows 3 mm stone left distal ureter.), image reviewed (Abdominal x-ray has concern for enteritis.) <Jim Null - Last Filed: 06/02/19 09:20> - Lab Data Result diagrams: 06/02/19 04:30 06/02/19 04:30 <Vivien Rice - Last Filed: 06/02/19 21:10> - Medical Decision Making Patient reexamined and still had discomfort. Patient again reexamined and feeling better after Toradol and Reglan. Patient and family updated on results. (Jim Null) - Lab Data Lab Results 06/02/19 06/02/19 06/02/19 Range/Units 04:30 04:30 04:30 WBC 8.1 (3.8-10.6) k/uL RBC 5.64 (4.30-5.90) m/uL Hgb 16.9 (13.0-17.5) gm/dL Hct 52.0 (39.0-53.0) % MCV 92.2 (80.0-100.0) fL MCH 30.0 (25.0-35.0) pg MCHC 32.5 (31.0-37.0) g/dL RDW 15.1 (11.5-15.5) % Plt Count 219 (150-450) k/uL Neutrophils % 70 % Lymphocytes % 16 % Monocytes % 9 % Eosinophils % 3 % Basophils % 1 % Neutrophils # 5.6 (1.3-7.7) k/uL Lymphocytes # 1.3 (1.0-4.8) k/uL Monocytes # 0.8 (0-1.0) k/uL Eosinophils # 0.2 (0-0.7) k/uL Basophils # 0.1 (0-0.2) k/uL Sodium 142 (137-145) mmol/L Potassium 4.0 (3.5-5.1) mmol/L Chloride 103 (98-107) mmol/L Carbon Dioxide 29 (22-30) mmol/L Anion Gap 10 mmol/L BUN 12 (9-20) mg/dL Creatinine 1.59 H (0.66-1.25) mg/dL Est GFR (CKD-EPI)AfAm 62 (>60 ml/min/1.73 sqM) Est GFR (CKD-EPI)NonAf 53 (>60 ml/min/1.73 sqM) Glucose 123 H (74-99) mg/dL Calcium 9.7 (8.4-10.2) mg/dL Total Bilirubin 0.5 (0.2-1.3) mg/dL AST 22 (17-59) U/L ALT 30 (21-72) U/L Alkaline Phosphatase 68 (38-126) U/L Total Protein 7.5 (6.3-8.2) g/dL Albumin 4.4 (3.5-5.0) g/dL Urine Color Yellow Urine Appearance Cloudy (Clear) Urine pH 5.5 (5.0-8.0) Ur Specific [place] 1.022 (1.001-1.035) Urine Protein 1+ H (Negative) Urine Glucose (UA) Negative (Negative) Urine Ketones 1+ H (Negative) Urine Blood Large H (Negative) Urine Nitrite Negative (Negative) Urine Bilirubin Negative (Negative) Urine Urobilinogen <2.0 (<2.0) mg/dL Ur Leukocyte Esterase Trace H (Negative) Urine RBC >182 H (0-5) /hpf Urine WBC 4 (0-5) /hpf Hyaline Casts 3 H (0-2) /lpf Granular Casts 1 (0) /lpf Urine Mucus Few H (None) /hpf Disposition Is patient prescribed a controlled substance at d/c from ED?: No Time of Disposition: 09:23 <Jim Null - Last Filed: 06/02/19 09:20> Is patient prescribed a controlled substance at d/c from ED?: No <Vivien Rice Terrence - Last Filed: 06/02/19 21:10> Clinical Impression: Ureterolithiasis Disposition: HOME SELF-CARE Condition: Stable Instructions (If sedation given, give patient instructions): Kidney Stones (ED) Additional Instructions: Please follow-up with primary care physician in the next day or 2 for recheck. Return for fever, uncontrolled vomiting, uncontrolled pain, worsening symptoms or other concerns. Prescriptions have been sent to [facility] pharmacy. Prescriptions: Tamsulosin [Flomax] 0.4 mg PO DAILY #14 cap Metoclopramide HCl [Reglan] 10 mg PO Q6HR PRN #15 tablet PRN Reason: Nausea Ketorolac [Toradol] 10 mg PO Q6HR PRN #15 tab PRN Reason: Pain Referrals: Ryan Loving Jr, DO [Primary Care Provider] - 1-2 days Jd Benitez MD [STAFF PHYSICIAN] - 1-2 days
[2019-06-02] MEDS ORDERED: SODIUM CHLORIDE 0.9% 1,000 ML IV STA ×2 (05:37→06:27)
--- NOTE | 2019-06-02 07:15 | XR ---
EXAM: XR Abdomen, 2 Views CLINICAL HISTORY: abdominal pain TECHNIQUE: Frontal view of the abdomen/pelvis with upright view of the abdomen. COMPARISON: 05/02/2019 FINDINGS: Lower thorax: Mild cardiomegaly, as seen on prior study. Intraperitoneal space: No free air. Gastrointestinal tract: Probable wall thickening of proximal small bowel loops raises concern for infectious versus inflammatory enteritis. No dilation. Organs: Status post cholecystectomy. Bones/joints: Unremarkable. IMPRESSION: 1. Probable wall thickening of proximal small bowel loops raises concern for infectious versus inflammatory enteritis. CT of the abdomen/pelvis with oral and IV contrast may be obtained for further evaluation, if clinically indicated. 2. Mild cardiomegaly, as seen on prior study.
[2019-06-02 07:19] LABS: Albumin 4.4 g/dL (3.5-5.0); Basophils # (A) 0.1 k/uL (0-0.2); Basophils % (A) 1 %; Calcium 9.7 mg/dL (8.4-10.2); Eosinophils # (A) 0.2 k/uL (0-0.7); Eosinophils % (A) 3 %; HGB 16.9 gm/dL (13.0-17.5); Lymphocytes # (A) 1.3 k/uL (1.0-4.8); Lymphocytes % (A) 16 %; MCHC 32.5 g/dL (31.0-37.0); MCV 92.2 fL (80.0-100.0); Mean Platelet Volume 9.3; Monocytes # (A) 0.8 k/uL (0-1.0); Monocytes % (A) 9 %; Neutrophils # (A) 5.6 k/uL (1.3-7.7); Neutrophils % (A) 70 %; Platelet Count 219 k/uL (150-450); RBC 5.64 m/uL (4.30-5.90); RDW 15.1 % (11.5-15.5); Total Bilirubin 0.5 mg/dL (0.2-1.3); Total Protein 7.5 g/dL (6.3-8.2); WBC 8.1 k/uL (3.8-10.6)
[2019-06-02] MEDS ORDERED: SODIUM CHLORIDE 0.9% 1,000 ML IV ONE (07:39)
--- NOTE | 2019-06-02 08:19 | CT ---
EXAMINATION TYPE: CT abdomen pelvis w con DATE OF EXAM: 06/02/2019 COMPARISON: CT abdomen and pelvis 9 days ago. HISTORY: Pain, Urine retention CT DLP: 1535.3 mGycm, Automated Exposure Control for Dose Reduction was Utilized. CONTRAST: CT scan of the abdomen and pelvis is performed without oral but with IV Contrast, patient injected wi th 80 mL of Isovue 300. FINDINGS: LUNG BASES: No significant abnormality is appreciated. LIVER/GB: Cholecystectomy clips are present. PANCREAS: No significant abnormality is seen. SPLEEN: No significant abnormality is seen. ADRENALS: No significant abnormality is seen. KIDNEYS: Symmetric cortical medullary uptake and excretion is seen without hydronephrosis identified bilaterally. Simple appearing parapelvic cyst centrally in the left kidney are present. Left kidney s hows 2-4 scattered small renal calculi measuring up to 3 mm in size for reference coronal image 64 th ere is subcentimeter low dense lesion laterally upper pole level delayed axial image 22 favoring thin -walled cyst. There is interval passage of a 3 mm calculus from left renal collecting system to dista l ureter level axial image 77 current study. No intraluminal calculus in bladder. BOWEL: Evaluation of bowel suboptimal secondary to lack of enteric contrast. Mild wall thickening (si gmoid colon presumed product of poor distention. No suspicious small or large bowel dilatation.. PROSTATE/SEMINAL VESICLES: Central calcifications and slightly prominent prostate gland especially fo r patient's age. Early BPH should be considered. LYMPH NODES: No greater than 1cm abdominal or pelvic lymph nodes are appreciated. OSSEOUS STRUCTURES: No significant abnormality is seen. OTHER: Small fat-containing right inguinal hernia. IMPRESSION: Patient had prior 3 mm left collecting system calculus. In the interval from CT 9 days ag o this has passed to distal ureter level. It is not causing significant hydronephrosis or delayed exc retion of contrast. Additional smaller nonobstructing left renal calculi are redemonstrated and felt stable.
[2019-06-02] MEDS ORDERED: KETOROLAC 30 MG/ML 1 ML VIAL IVP STA (08:41)
[2019-06-02] MEDS ORDERED: METOCLOPRAMIDE 5 MG/ML 2 ML VIAL IVP STA (08:41)
[2019-06-02 09:36] VITALS: BP 122/81; PULSE 70; RESP 18; TEMP 98
== END 2019-06-02 09:35 | disposition home or self-care (01) ==
LOC: EC 03:47
DX: N20.2 Calculus of kidney with calculus of ureter (principal); I10 Essential (primary) hypertension; Z79.890 Hormone replacement therapy; Z79.899 Other long term (current) drug therapy; Z88.8 Allergy status to other drugs, medicaments and biological substances
CPT/HCPCS: 36415; 80053; 85025; 81001; 74018; 74177; 99284; 96374; 96375 ×3; 96361 ×3; J2270; J2765; J2405; J1885; Q9967

== ENCOUNTER 2019-06-03 10:46 | Emergency (ER) | payer OTHER ==
[2019-06-03] MEDS ORDERED: HYDROmorphone 1 MG/ML 1 ML SYRINGE IVP STA (11:05)
[2019-06-03] MEDS ORDERED: ONDANSETRON 4 MG/2 ML VIAL IVP STA (11:05)
[2019-06-03] MEDS ORDERED: SODIUM CHLORIDE 0.9% 1,000 ML IV STA ×2 (11:07)
--- NOTE | 2019-06-03 11:11 | ED ---
General Adult HPI - General Chief complaint: Urogenital Stated complaint: kidney stone Time Seen by Provider: 06/03/19 10:53 Source: patient, RN notes reviewed, old records reviewed Mode of arrival: ambulatory Limitations: no limitations - History of Present Illness Initial comments: Patient is a 39-year-old male was recently seen in emergency department yesterday for left-sided flank pain and kidney stone. Patient reports that he was told he had multiple kidney stones. Patient states that last night his pain was more in his lower abdomen and bladder area. Patient states that today he's had upper kidney pain. He states he feels like he stated passing another stone or he is having a blockage. Patient states he's had multiple kidney stones in the past. He does take chronic narcotics for chronic back pain. Patient reports his been taking his medications along with Pyridium and Toradol and Flomax with no relief of the symptoms. Patient states he's had a few episodes of vomiting this morning. He arrives with intractable pain. - Related Data Home Medications Medication Instructions Recorded Confirmed Levothyroxine Sodium [Synthroid] 50 mcg PO DAILY 03/30/14 06/03/19 tiZANidine HCL [Zanaflex] 8 mg PO HS PRN 01/13/19 06/03/19 Lisinopril [Zestril] 10 mg PO BID 01/26/19 06/03/19 Testosterone Cypionate 130 mg IM Q72H 01/26/19 06/03/19 [Depo-Testosterone] Acetaminophen Tab [Tylenol] 650 mg PO Q6H PRN 04/29/19 06/03/19 Ibuprofen [Advil] 200 mg PO Q8HR PRN 04/29/19 06/03/19 amLODIPine [Norvasc] 5 mg PO DAILY 04/29/19 06/03/19 Previous Rx's Medication Instructions Recorded Aspirin EC [Ecotrin Low Dose] 81 mg PO DAILY #30 tablet. 01/27/19 Ketorolac [Toradol] 10 mg PO Q6HR PRN #15 tab 06/02/19 Metoclopramide HCl [Reglan] 10 mg PO Q6HR PRN #15 tablet 06/02/19 Tamsulosin [Flomax] 0.4 mg PO DAILY #14 cap 06/02/19 Ondansetron Odt [Zofran Odt] 4 mg PO Q8HR PRN #12 tab 06/03/19 Allergies Allergy/AdvReac Type Severity Reaction Status Date / Time benzalkonium chloride Allergy Severe Swelling Verified 06/03/19 11:11 duloxetine HCl AdvReac Severe severe Verified 06/03/19 11:11 [From Cymbalta] headache gabapentin [From Neurontin] AdvReac HEADACHE Verified 06/03/19 11:11 Review of Systems ROS Statement: Those systems with pertinent positive or pertinent negative responses have been documented in the HPI. ROS Other: All systems not noted in ROS Statement are negative. Past Medical History Past Medical History: GERD/Reflux, Hypertension, Thyroid Disorder Additional Past Medical History / Comment(s): KIDNEY STONE,CHRONIC BACK PAIN, History of Any Multi-Drug Resistant Organisms: None Reported Past Surgical History: Appendectomy, Cholecystectomy Additional Past Surgical History / Comment(s): PAIN PROCEDURES, Past Anesthesia/Blood Transfusion Reactions: Previous Problems w/ Anesthesia Additional Past Anesthesia/Blood Transfusion Reaction / Comment(s): STATES "NOVOCAINE DOESN'T WORK ON ME" "TAKES MORE THAN NORMAL TO PUT ME OUT" Past Psychological History: No Psychological Hx Reported Smoking Status: Never smoker Past Alcohol Use History: None Reported Past Drug Use History: None Reported - Past Family History Mother History Unknown: Yes Family Medical History: Dementia Father Additional Family Medical History / Comment(s): SMOKER. General Exam Limitations: no limitations General appearance: alert, in no apparent distress Head exam: Present: atraumatic, normocephalic, normal inspection Eye exam: Present: normal appearance, PERRL, EOMI. Absent: scleral icterus, conjunctival injection, periorbital swelling ENT exam: Present: normal exam, mucous membranes moist Neck exam: Present: normal inspection. Absent: tenderness, meningismus, lymp hadenopathy Respiratory exam: Present: normal lung sounds bilaterally. Absent: respiratory distress, wheezes, rales, rhonchi, stridor Cardiovascular Exam: Present: regular rate, normal rhythm, normal heart sounds. Absent: systolic murmur, diastolic murmur, rubs, gallop, clicks GI/Abdominal exam: Present: soft, normal bowel sounds. Absent: distended, tenderness, guarding, rebound, rigid Extremities exam: Present: normal inspection, full ROM, normal capillary refill. Absent: tenderness, pedal edema, joint swelling, calf tenderness Back exam: Present: normal inspection, CVA tenderness (L) Neurological exam: Present: alert, oriented X3, CN II-XII intact Psychiatric exam: Present: normal affect, normal mood Skin exam: Present: warm, dry, intact, normal color. Absent: rash Course Vital Signs 06/03/19 06/03/19 10:46 13:27 Temperature 98.1 F 98.7 F Pulse Rate 85 97 Respiratory 18 17 Rate Blood Pressure 147/97 146/96 O2 Sat by Pulse 99 96 Oximetry Medical Decision Making - Medical Decision Making 39-year-old male presents for evaluation for complaints of left-sided flank pain. Patient presented today with intractable pain. He does take oxycodone home. Patient's had a computed tomography scan yesterday which showed a 3 mm distal ureter stone. He has large stones within the kidney. Patient states he feels that the toxins or passing of a sign. At this time patient's her nose continues to have hematuria. Patient labwork was reviewed in kidney function is improved. UA shows no sign of infection. I discussed at this time patient's pain will be controlled and will discharge Patient with nausea medicine. A prescription for a follow-up with urology PCP. All return parameters were discussed. - Lab Data Result diagrams: 06/03/19 11:10 06/03/19 11:10 Lab Results 06/03/19 06/03/19 06/03/19 Range/Units 11:10 11:10 11:10 WBC 4.7 (3.8-10.6) k/uL RBC 5.54 (4.30-5.90) m/uL Hgb 16.4 (13.0-17.5) gm/dL Hct 49.9 (39.0-53.0) % MCV 90.1 (80.0-100.0) fL MCH 29.7 (25.0-35.0) pg MCHC 32.9 (31.0-37.0) g/dL RDW 13.0 (11.5-15.5) % Plt Count 220 (150-450) k/uL Neutrophils % 52 % Lymphocytes % 30 % Monocytes % 11 % Eosinophils % 3 % Basophils % 1 % Neutrophils # 2.4 (1.3-7.7) k/uL Lymphocytes # 1.4 (1.0-4.8) k/uL Monocytes # 0.5 (0-1.0) k/uL Eosinophils # 0.2 (0-0.7) k/uL Basophils # 0.0 (0-0.2) k/uL Sodium 140 (137-145) mmol/L Potassium 3.5 (3.5-5.1) mmol/L Chloride 103 (98-107) mmol/L Carbon Dioxide 26 (22-30) mmol/L Anion Gap 11 mmol/L BUN 11 (9-20) mg/dL Creatinine 1.30 H (0.66-1.25) mg/dL Est GFR (CKD-EPI)AfAm 79 (>60 ml/min/1.73 sqM) Est GFR (CKD-EPI)NonAf 68 (>60 ml/min/1.73 sqM) Glucose 92 (74-99) mg/dL Calcium 9.3 (8.4-10.2) mg/dL Total Bilirubin 0.5 (0.2-1.3) mg/dL AST 22 (17-59) U/L ALT 20 L (21-72) U/L Alkaline Phosphatase 60 (38-126) U/L Total Protein 7.4 (6.3-8.2) g/dL Albumin 4.4 (3.5-5.0) g/dL Amylase 43 (30-110) U/L Lipase 309 H (23-300) U/L Urine Color Dark Yellow Urine Appearance Clear (Clear) Urine pH 7.0 (5.0-8.0) Ur Specific [place] 1.026 (1.001-1.035) Urine Protein Trace H (Negative) Urine Glucose (UA) Negative (Negative) Urine Ketones Trace H (Negative) Urine Blood Large H (Negative) Urine Nitrite Positive (Negative) Urine Bilirubin 1+ H (Negative) Urine Urobilinogen 4.0 (<2.0) mg/dL Ur Leukocyte Esterase Trace H (Negative) Urine RBC >182 H (0-5) /hpf Urine WBC 4 (0-5) /hpf Urine Bacteria Rare H (None) /hpf Urine Mucus Few H (None) /hpf - Radiology Data Radiology results: report reviewed Computed tomography scan from yesterday shows prior 3 mm left collecting system calculus in the interval CT findings noticed past the distal ureter level. No significant hydronephrosis, or delayed excretion of contrast. Additional smaller nonobstructing left renal colliculi redemonstrated and felt stable. Overall not instructed bowel gas pattern. Disposition Clinical Impression: Left ureteral calculus Disposition: HOME SELF-CARE Condition: Good Instructions (If sedation given, give patient instructions): Ureteral Stones (ED) Additional Instructions: Continue meds as previously prescribed. Abdomen nausea medicine as needed. Return to the emergency department if any alarming signs or symptoms occur. Prescriptions: Ondansetron Odt [Zofran Odt] 4 mg PO Q8HR PRN #12 tab PRN Reason: Nausea Is patient prescribed a controlled substance at d/c from ED?: No Referrals: Ryan Loving Jr, [Primary Care Provider] - 1-2 days Jd Benitez MD [STAFF PHYSICIAN] - 1-2 days Time of Disposition: 13:07
[2019-06-03 11:32] LABS: Albumin 4.4 g/dL (3.5-5.0); Basophils % (A) 1 %; Calcium 9.3 mg/dL (8.4-10.2); Eosinophils # (A) 0.2 k/uL (0-0.7); Eosinophils % (A) 3 %; HCT 49.9 % (39.0-53.0); HGB 16.4 gm/dL (13.0-17.5); Lymphocytes # (A) 1.4 k/uL (1.0-4.8); Lymphocytes % (A) 30 %; MCH 29.7 pg (25.0-35.0); MCHC 32.9 g/dL (31.0-37.0); MCV 90.1 fL (80.0-100.0); Mean Platelet Volume 8.3; Monocytes # (A) 0.5 k/uL (0-1.0); Monocytes % (A) 11 %; Neutrophils # (A) 2.4 k/uL (1.3-7.7); Neutrophils % (A) 52 %; Platelet Count 220 k/uL (150-450); Potassium 3.5 mmol/L (3.5-5.1); RBC 5.54 m/uL (4.30-5.90); Total Bilirubin 0.5 mg/dL (0.2-1.3); Total Protein 7.4 g/dL (6.3-8.2); WBC 4.7 k/uL (3.8-10.6)
[2019-06-03 11:39] LABS: Appearance,Urine Clear (Clear); Bacteria,Urine Rare /hpf; Bilirubin,Urine 1+ (Negative); Blood,Urine Large (Negative); Color,Urine Dark Yellow; Glucose,Urine (UA) Negative (Negative); Ketones,Urine Trace (Negative); Leukocyte Esterase,Urine Trace (Negative); Mucus,Urine Few /hpf; Nitrite,Urine Positive (Negative); Protein,Urine Trace (Negative); RBC,Urine >182 /hpf (0-5); Specific Gravity,Urine 1.026 (1.001-1.035); WBC,Urine 4 /hpf (0-5)
--- NOTE | 2019-06-03 11:51 | XR ---
EXAMINATION TYPE: XR KUB DATE OF EXAM: 06/03/2019 COMPARISON: NONE HISTORY: Pain TECHNIQUE: Single supine KUB image of the abdomen is obtained FINDINGS: Small bowel demonstrates no evidence for dilatation or air fluid levels. Gas and fecal material is seen in non-distended colon. No convincing evidence for pneumoperitoneum. No unusual calcifications. The lung bases are clear. The osseous structures are intact. IMPRESSION: 1. Overall nonobstructive bowel gas pattern.
[2019-06-03] MEDS ORDERED: METOCLOPRAMIDE 5 MG/ML 2 ML VIAL IVP STA (12:26)
[2019-06-03] MEDS ORDERED: MORPHINE SULFATE 4 MG/ML SYRINGE IVP STA (12:26)
[2019-06-03 13:29] VITALS: BP 146/96; PULSE 97; RESP 17; TEMP 98.7
[2019-06-06] MEDS ORDERED: LEVOFLOXACIN 500MG-D5W PMX 500 MG in DEXTROSE/WATER 1 100ML.BAG IVPB SCH (08:30)
== END 2019-06-03 13:29 | disposition home or self-care (01) ==
LOC: EC 10:46
DX: N20.2 Calculus of kidney with calculus of ureter (principal); I10 Essential (primary) hypertension; E07.9 Disorder of thyroid, unspecified; Z90.49 Acquired absence of other specified parts of digestive tract; Z79.890 Hormone replacement therapy; Z79.899 Other long term (current) drug therapy
CPT/HCPCS: 99284; 96374; 96375 ×3; 96361 ×2; 36415; 80053; 82150; 83690; 85025; 81001; 74018; J2270; J2765; J2405; J1170

== ENCOUNTER 2019-06-05 09:48 | Inpatient (IN) | payer OTHER ==
[2019-06-05] MEDS ORDERED: SODIUM CHLORIDE 0.9% 1,000 ML IV STA (10:07)
[2019-06-05] MEDS ORDERED: MORPHINE SULFATE 4 MG/ML SYRINGE IV STA ×2 (10:07→11:18)
--- NOTE | 2019-06-05 10:22 | ED ---
General Adult HPI - General Chief complaint: Abdominal Pain Stated complaint: kidney stone Source: patient, RN notes reviewed, old records reviewed Mode of arrival: wheelchair Limitations: no limitations - History of Present Illness Initial comments: 39-year-old male patient passed no history of primary renal calculi, cholecystectomy, appendectomy, chronic back pain presents ED chief complaint of left flank pain. Patient has been seen 2 previous times in the ER in the last week for pain secondary to renal calculi. Patient reports that he continues to have left lower flank pain which is identical to the pain of 2 previous visits as well as prior kidney stones in the past. Patient also reports nausea and vomiting during pain. Patient reports that he is still having hematuria. Patient denies any chest pain shortness of breath. Denies any other complaints at this time. Patient does take chronic pain medication at home for back pain. Systemic: Pt denies fatigue, fever/chills, rash. Pt denies weakness, night sweats, weight loss. Neuro: Pt denies headache, visual disturbances, syncope or pre-syncope. HEENT: Pt denies ocular discharge or irritation, otalgia, rhinorrhea, pharyngitis or notable lymphadenopathy. Cardiopulmonary: Pt denies chest pain, SOB, heart palpitations, dyspnea on exertion. Abdominal/GI: Pt denies abdominal pain, n/v/d. : Pt denies dysuria, burning w/ urination, frequency/urgency. Denies new onset urinary or bowel incontinence. MSK: Pt denies myalgia, loss of strength or function in extremities. Neuro: Pt denies new onset weakness, paresthesias. - Related Data Home Medications Medication Instructions Recorded Confirmed Levothyroxine Sodium [Synthroid] 50 mcg PO DAILY 03/30/14 06/03/19 tiZANidine HCL [Zanaflex] 8 mg PO HS PRN 01/13/19 06/03/19 Lisinopril [Zestril] 10 mg PO BID 01/26/19 06/03/19 Testosterone Cypionate 130 mg IM Q72H 01/26/19 06/03/19 [Depo-Testosterone] Acetaminophen Tab [Tylenol] 650 mg PO Q6H PRN 04/29/19 06/03/19 Ibuprofen [Advil] 200 mg PO Q8HR PRN 04/29/19 06/03/19 amLODIPine [Norvasc] 5 mg PO DAILY 04/29/19 06/03/19 Previous Rx's Medication Instructions Recorded Aspirin EC [Ecotrin Low Dose] 81 mg PO DAILY #30 tablet. 01/27/19 Ketorolac [Toradol] 10 mg PO Q6HR PRN #15 tab 06/02/19 Metoclopramide HCl [Reglan] 10 mg PO Q6HR PRN #15 tablet 06/02/19 Tamsulosin [Flomax] 0.4 mg PO DAILY #14 cap 06/02/19 Ondansetron Odt [Zofran Odt] 4 mg PO Q8HR PRN #12 tab 06/03/19 Tamsulosin [Flomax] 0.4 mg PO DAILY #10 cap 06/05/19 Allergies Allergy/AdvReac Type Severity Reaction Status Date / Time benzalkonium chloride Allergy Severe Swelling Verified 06/05/19 09:52 duloxetine HCl AdvReac Severe severe Verified 06/05/19 09:52 [From Cymbalta] headache gabapentin [From Neurontin] AdvReac HEADACHE Verified 06/05/19 09:52 Review of Systems ROS Statement: Those systems with pertinent positive or pertinent negative responses have been documented in the HPI. ROS Other: All systems not noted in ROS Statement are negative. Past Medical History Past Medical History: GERD/Reflux, Hypertension, Thyroid Disorder Additional Past Medical History / Comment(s): KIDNEY STONE,CHRONIC BACK PAIN, History of Any Multi-Drug Resistant Organisms: None Reported Past Surgical History: Appendectomy, Cholecystectomy Additional Past Surgical History / Comment(s): PAIN PROCEDURES, Past Anesthesia/Blood Transfusion Reactions: Previous Problems w/ Anesthesia Additional Past Anesthesia/Blood Transfusion Reaction / Comment(s): STATES "NOVOCAINE DOESN'T WORK ON ME" "TAKES MORE THAN NORMAL TO PUT ME OUT" Past Psychological History: No Psychological Hx Reported Smoking Status: Never smoker Past Alcohol Use History: None Reported Past Drug Use History: None Reported - Past Family History Mother History Unknown: Yes Family Medical History: Dementia Father Additional Family Medical History / Comment(s): SMOKER. General Exam - General Exam Comments Initial Comments: Constitutional: NAD, AOX3, Pt has pleasant affect. HEENT: NC/AT, trachea midline, neck supple, no lymphadenopathy. Posterior pharynx non erythematous, without exudates. External ears appear normal, without discharge. Mucous membranes moist. Eyes PERRLA, EOM intact. There is no scleral icterus. No pallor noted. Cardiopulmonary: RRR, no murmurs, rubs or gallops, no JVD noted. Lungs CTAB in anterior and posterior jaquez. No peripheral edema. Abdominal exam: Abdomen soft and non-distended. Abdomen non-tender to palpation in all 4 quadrants. Bowel sounds active in LLQ. No hepatosplenomegaly. No ecchymosis left CVA tenderness positive, right CVA tenderness negative. Neuro: CN II-XII grossly intact. No nuchal rigidity. No raccon eyes, no camp sign, no hemotympanum. No cervical spinal tenderness. MSK: No posterior calf tenderness bilaterally, homans sign negative bilaterally. Posterior tibialis and radial pulse +2 bilaterally. Sensation intact in upper and lower extremities. Full active ROM in upper and lower extremities, 5/5 stregnth. Limitations: no limitations Course Vital Signs 06/05/19 06/05/19 09:49 11:15 Temperature 97.7 F Pulse Rate 84 76 Respiratory 18 16 Rate Blood Pressure 155/96 124/81 O2 Sat by Pulse 98 99 Oximetry Medical Decision Making - Medical Decision Making 39-year-old male patient passed no history of primary renal calculi, cholecystectomy, appendectomy, chronic back pain presents ED chief complaint of left flank pain. Patient has been seen 2 previous times in the ER in the last week for pain secondary to renal calculi. Patient reports that he continues to have left lower flank pain which is identical to the pain of 2 previous visits as well as prior kidney stones in the past. Patient also reports nausea and vomiting during pain. Patient reports that he is still having hematuria. Patient denies any chest pain shortness of breath. Denies any other complaints at this time. Patient does take chronic pain medication at home for back pain. Patient vital signs stable, afebrile. Physical exam displayed: Abdomen soft and non-distended. Abdomen non-tender to palpation in all 4 quadrants. Bowel sounds active in LLQ. No hepatosplenomegaly. No ecchymosis left CVA tenderness positive, right CVA tenderness negative. Laboratory investigations reveal non- impressive CBC, CMP. Creatinine at baseline. UA displayed continued gross hem aturia, no evidence of infection. KUB displayed outstretched bowel gas pattern. Patient pain proved to be intractable, at this time patient offered CAT scan to ensure it is the kidney stones which is causing pain, patient said that he would like to undergo CAT scan.CAT scan displayed slightest progression of 3-4 mm obstructing distal left ureter calculi. Patient admitted for intractable pain. Case discussed in depth with Dr. Mills. - Lab Data Result diagrams: 06/05/19 10:15 06/05/19 10:15 Lab Results 06/05/19 06/05/19 06/05/19 Range/Units 10:15 10:15 10:15 WBC 6.9 (3.8-10.6) k/uL RBC 5.54 (4.30-5.90) m/uL Hgb 17.0 (13.0-17.5) gm/dL Hct 50.1 (39.0-53.0) % MCV 90.4 (80.0-100.0) fL MCH 30.8 (25.0-35.0) pg MCHC 34.1 (31.0-37.0) g/dL RDW 12.9 (11.5-15.5) % Plt Count 218 (150-450) k/uL Neutrophils % 69 % Lymphocytes % 16 % Monocytes % 8 % Eosinophils % 4 % Basophils % 1 % Neutrophils # 4.7 (1.3-7.7) k/uL Lymphocytes # 1.1 (1.0-4.8) k/uL Monocytes # 0.5 (0-1.0) k/uL Eosinophils # 0.3 (0-0.7) k/uL Basophils # 0.1 (0-0.2) k/uL Sodium 139 (137-145) mmol/L Potassium 4.2 (3.5-5.1) mmol/L Chloride 102 (98-107) mmol/L Carbon Dioxide 27 (22-30) mmol/L Anion Gap 10 mmol/L BUN 13 (9-20) mg/dL Creatinine 1.33 H (0.66-1.25) mg/dL Est GFR (CKD-EPI)AfAm 77 (>60 ml/min/1.73 sqM) Est GFR (CKD-EPI)NonAf 66 (>60 ml/min/1.73 sqM) Glucose 92 (74-99) mg/dL Plasma Lactic Acid Roshan 1.1 (0.7-2.0) mmol/L Calcium 9.3 (8.4-10.2) mg/dL Total Bilirubin 0.8 (0.2-1.3) mg/dL AST 24 (17-59) U/L ALT 25 (21-72) U/L Alkaline Phosphatase 51 (38-126) U/L Total Protein 7.4 (6.3-8.2) g/dL Albumin 4.2 (3.5-5.0) g/dL Lipase 199 (23-300) U/L Urine Color Urine Appearance (Clear) Urine pH (5.0-8.0) Ur Specific [place] (1.001-1.035) Urine Protein (Negative) Urine Glucose (UA) (Negative) Urine Ketones (Negative) Urine Blood (Negative) Urine Nitrite (Negative) Urine Bilirubin (Negative) Urine Urobilinogen (<2.0) mg/dL Ur Leukocyte Esterase (Negative) Urine RBC (0-5) /hpf Urine Mucus (None) /hpf 06/05/19 Range/Units 10:15 WBC (3.8-10.6) k/uL RBC (4.30-5.90) m/uL Hgb (13.0-17.5) gm/dL Hct (39.0-53.0) % MCV (80.0-100.0) fL MCH (25.0-35.0) pg MCHC (31.0-37.0) g/dL RDW (11.5-15.5) % Plt Count (150-450) k/uL Neutrophils % % Lymphocytes % % Monocytes % % Eosinophils % % Basophils % % Neutrophils # (1.3-7.7) k/uL Lymphocytes # (1.0-4.8) k/uL Monocytes # (0-1.0) k/uL Eosinophils # (0-0.7) k/uL Basophils # (0-0.2) k/uL Sodium (137-145) mmol/L Potassium (3.5-5.1) mmol/L Chloride (98-107) mmol/L Carbon Dioxide (22-30) mmol/L Anion Gap mmol/L BUN (9-20) mg/dL Creatinine (0.66-1.25) mg/dL Est GFR (CKD-EPI)AfAm (>60 ml/min/1.73 sqM) Est GFR (CKD-EPI)NonAf (>60 ml/min/1.73 sqM) Glucose (74-99) mg/dL Plasma Lactic Acid [place]han (0.7-2.0) mmol/L Calcium (8.4-10.2) mg/dL Total Bilirubin (0.2-1.3) mg/dL AST (17-59) U/L ALT (21-72) U/L Alkaline Phosphatase (38-126) U/L Total Protein (6.3-8.2) g/dL Albumin (3.5-5.0) g/dL Lipase (23-300) U/L Urine Color Dark Brown Urine Appearance Turbid (Clear) Urine pH 5.0 (5.0-8.0) Ur Specific [place] 1.022 (1.001-1.035) Urine Protein 1+ H (Negative) Urine Glucose (UA) Negative (Negative) Urine Ketones Negative (Negative) Urine Blood Moderate H (Negative) Urine Nitrite Positive (Negative) Urine Bilirubin Negative (Negative) Urine Urobilinogen 6.0 (<2.0) mg/dL Ur Leukocyte Esterase Negative (Negative) Urine RBC >182 H (0-5) /hpf Urine Mucus Many H (None) /hpf Disposition Clinical Impression: Renal colic on left side, Intractable pain Disposition: ADMITTED IP TO THIS [facility] Condition: Fair Additional Instructions: Patient to adhere to previously discussed treatment plan and will take medication(s) as directed. Patient to follow up with PCP in 1-2 days. Patient to return to ED if symptoms do not improve. Follow-up with urologist tomorrow, return to ER if condition worsens. Prescriptions: Tamsulosin [Flomax] 0.4 mg PO DAILY #10 cap Is patient prescribed a controlled substance at d/c from ED?: No Referrals: Ryan Loving Jr, [Primary Care Provider] - 1-2 days Jaime Garcias MD [STAFF PHYSICIAN] - 1-2 days
[2019-06-05 10:41] LABS: Basophils # (A) 0.1 k/uL (0-0.2); Basophils % (A) 1 %; Eosinophils # (A) 0.3 k/uL (0-0.7); Eosinophils % (A) 4 %; HCT 50.1 % (39.0-53.0); Lymphocytes # (A) 1.1 k/uL (1.0-4.8); Lymphocytes % (A) 16 %; MCH 30.8 pg (25.0-35.0); MCHC 34.1 g/dL (31.0-37.0); MCV 90.4 fL (80.0-100.0); Monocytes # (A) 0.5 k/uL (0-1.0); Monocytes % (A) 8 %; Neutrophils # (A) 4.7 k/uL (1.3-7.7); Neutrophils % (A) 69 %; Platelet Count 218 k/uL (150-450); RBC 5.54 m/uL (4.30-5.90); RDW 12.9 % (11.5-15.5); WBC 6.9 k/uL (3.8-10.6)
[2019-06-05 10:45] LABS: Appearance,Urine Turbid (Clear); Bilirubin,Urine Negative (Negative); Blood,Urine Moderate (Negative); Color,Urine Dark Brown; Glucose,Urine (UA) Negative (Negative); Ketones,Urine Negative (Negative); Leukocyte Esterase,Urine Negative (Negative); Mucus,Urine Many /hpf; Nitrite,Urine Positive (Negative); Protein,Urine 1+ (Negative); RBC,Urine >182 /hpf (0-5); Specific Gravity,Urine 1.022 (1.001-1.035)
[2019-06-05 10:50] LABS: Albumin 4.2 g/dL (3.5-5.0); Calcium 9.3 mg/dL (8.4-10.2); Potassium 4.2 mmol/L (3.5-5.1); Total Bilirubin 0.8 mg/dL (0.2-1.3); Total Protein 7.4 g/dL (6.3-8.2)
[2019-06-05] MEDS ORDERED: ONDANSETRON 4 MG/2 ML VIAL IVP STA (11:07)
--- NOTE | 2019-06-05 11:09 | XR ---
EXAMINATION TYPE: XR KUB DATE OF EXAM: 06/05/2019 10:39 AM CLINICAL HISTORY: History of kidney stones with abdominal pain. TECHNIQUE: Two Upright KUB images of the abdomen are obtained. COMPARISON: Abdominal x-ray [address] abdomen and pelvis 3 days ago. FINDINGS: Some paucity of bowel gas. Scattered gas is seen in non-distended small bowel loops. Gas an d fecal material is seen in non-distended colon. The 2 to 3 mm distal left ureter calculus on CT is l ess well seen on plain films. No pneumoperitoneum. Visualized osseous structures are intact. Cholecys tectomy clips are redemonstrated. IMPRESSION: Overall nonobstructive bowel gas pattern.
--- NOTE | 2019-06-05 12:55 | CT ---
EXAMINATION TYPE: CT abdomen pelvis wo con DATE OF EXAM: 06/05/2019 HISTORY: left flank pain CT DLP: 1058.9 mGycm. Automated Exposure Control for Dose Reduction was Utilized. TECHNIQUE: CT scan of the abdomen and pelvis is performed without oral or IV contrast. COMPARISON: CT abdomen and pelvis from 3 days ago FINDINGS: Within the limitations of a non-contrast study, the following observations are made. LUNG BASES: No significant abnormality is appreciated. LIVER/GB: Cholecystectomy clips are seen liver is diffusely low dense relative to spleen consistent w ith diffuse fatty infiltration. PANCREAS: No significant abnormality is seen. SPLEEN: No significant abnormality is seen. ADRENALS: No significant abnormality is seen. KIDNEYS: The 3-4 mm calculus distal left ureter has progressed slightly distally axial image 139 appr oaching the UVJ. There is redemonstration of 2-3 left-sided renal calculi all measuring under 3 mm in size. No right-sided renal calculi or hydronephrosis. BOWEL: Surgical clips base of cecum are present. No suspicious small or large bowel dilatation. GENITAL ORGANS: Central calcifications and slightly prominent prostate gland. LYMPH NODES: No greater than 1cm abdominal or pelvic lymph nodes are appreciated. OSSEOUS STRUCTURES: Transitional type vertebra lumbosacral junction. OTHER: Small fat-containing right inguinal hernia. IMPRESSION: Slight distal progression of 3 to 4 mm obstructing distal left ureter calculus causing st able mild to minimal left-sided hydronephrosis.
[2019-06-05] MEDS ORDERED: ACETAMINOPHEN TAB 500 MG TAB PO STA (13:17)
[2019-06-05] MEDS ORDERED: HYDROmorphone 0.5 MG/0.5 ML SYRINGE IVP STA (13:43)
[2019-06-05] MEDS ORDERED: METOCLOPRAMIDE 5 MG/ML 2 ML VIAL IVP STA (14:09)
[2019-06-05] MEDS ORDERED: NALOXONE 0.4 MG/ML 1 ML VIAL IV PRN (14:59)
[2019-06-05] MEDS: SODIUM CHLORIDE 0.9% 1,000 ML IV SCH (16:07)
[2019-06-05] MEDS: HYDROmorphone 1 MG/ML 1 ML SYRINGE IVP PRN ×2 (16:42→20:51)
[2019-06-05] MEDS ORDERED: ACETAMINOPHEN TAB 325 MG TAB PO PRN (17:22)
[2019-06-05] MEDS ORDERED: TESTOSTERONE CYPIONATE 200 MG/ML 1ML VIAL IM SCH (17:30)
[2019-06-05] MEDS: ONDANSETRON 4 MG/2 ML VIAL IVP PRN (20:51)
[2019-06-05] MEDS: LISINOPRIL 10 MG TAB PO SCH (20:52)
[2019-06-05] MEDS: TAMSULOSIN 0.4 MG CAP.ER.24H PO SCH (20:52)
[2019-06-06] MEDS: HYDROmorphone 1 MG/ML 1 ML SYRINGE IVP PRN ×4 (01:04→13:08)
[2019-06-06] MEDS: SODIUM CHLORIDE 0.9% 1,000 ML IV SCH ×3 (01:30→21:13)
[2019-06-06] MEDS: ONDANSETRON 4 MG/2 ML VIAL IVP PRN ×2 (05:12→13:10)
[2019-06-06] MEDS: LEVOTHYROXINE 50 MCG TAB PO SCH (05:14)
[2019-06-06] MEDS: amLODIPine 5 MG TAB PO SCH (06:59)
[2019-06-06] MEDS: LISINOPRIL 10 MG TAB PO SCH ×2 (07:00→21:13)
[2019-06-06] MEDS: TAMSULOSIN 0.4 MG CAP.ER.24H PO SCH ×2 (07:00→21:13)
[2019-06-06] MEDS: ASPIRIN 81 MG PO SCH (07:00)
--- NOTE | 2019-06-06 13:32 | P.GSCN ---
History of Present Illness Consult date: 06/06/19 Reason for Consult: Left ureteral calculus Requesting physician: Ryan Loving Jr History of present illness: The patient is a 39-year-old white male with a history of recurrent urolithiasis, for which he has required ureteroscopy with stone basketing on 2 occasions. He now presents with recent left flank pain. He was evaluated in the emergency room several days ago, at which time a computed tomography scan showed a 4 mm left distal ureteral calculus. He was sent home with oral analgesics, but failed medical therapy. He was seen back in the emergency room yesterday, and a repeat computed tomography scan showed that the calculus had migrated distally only to a minimal degree. We discussed alternative modes of management, which include primarily continuous medical therapy versus ureteroscopic stone removal. Review of Systems - Constitutional Reports chills, Denies fever - Gastrointestinal Reports nausea, Reports vomiting - Genitourinary Reports dysuria, Reports flank pain, Reports hematuria, Reports kidney stones Past Medical History Past Medical History: GERD/Reflux, Hypertension, Thyroid Disorder Additional Past Medical History / Comment(s): KIDNEY STONE,CHRONIC BACK PAIN, LOW THYROID, UMBILICAL HERNIA History of Any Multi-Drug Resistant Organisms: None Reported Past Surgical History: Appendectomy, Cholecystectomy Additional Past Surgical History / Comment(s): PAIN PROCEDURES, VASECTOMY, ureteroscopic stone basketing Past Anesthesia/Blood Transfusion Reactions: No Reported Reaction Additional Past Anesthesia/Blood Transfusion Reaction / Comm: STATES "NOVOCAINE DOESN'T WORK ON ME" "TAKES MORE THAN NORMAL TO PUT ME OUT" Past Psychological History: No Psychological Hx Reported Additional Psychological History / Comment(s): . Smoking Status: Never smoker Past Alcohol Use History: None Reported Past Drug Use History: None Reported - Past Family History Mother History Unknown: Yes Family Medical History: Dementia Father Additional Family Medical History / Comment(s): SMOKER. Medications and Allergies Home Medications Medication Instructions Recorded Confirmed Type Levothyroxine Sodium [Synthroid] 50 mcg PO DAILY 03/30/14 06/05/19 History tiZANidine HCL [Zanaflex] 8 mg PO TID PRN 01/13/19 06/05/19 History Lisinopril [Zestril] 10 mg PO BID 01/26/19 06/05/19 History Testosterone Cypionate 130 mg IM Q72H 01/26/19 06/05/19 History [Depo-Testosterone] Aspirin EC [Ecotrin Low Dose] 81 mg PO DAILY #30 tablet. 01/27/19 06/05/19 Rx Acetaminophen Tab [Tylenol] 650 mg PO Q6H PRN 04/29/19 06/05/19 History amLODIPine [Norvasc] 5 mg PO DAILY 04/29/19 06/05/19 History Tamsulosin [Flomax] 0.4 mg PO BID 06/05/19 06/05/19 History Tamsulosin [Flomax] 0.4 mg PO DAILY #10 cap 06/05/19 Rx oxyCODONE HCL [Roxicodone] 10 mg PO TID PRN 06/05/19 06/05/19 History Allergies Allergy/AdvReac Type Severity Reaction Status Date / Time benzalkonium chloride Allergy Severe Swelling Verified 06/05/19 15:06 duloxetine HCl AdvReac Severe severe Verified 06/05/19 15:06 [From Cymbalta] headache gabapentin [From Neurontin] AdvReac HEADACHE Verified 06/05/19 15:06 Surgical - Exam Vital Signs Temp Pulse Resp BP Pulse Ox 97.7 F 84 18 155/96 98 06/05/19 09:49 06/05/19 09:49 06/05/19 09:49 06/05/19 09:49 06/05/19 09:49 - General well developed, well nourished, moderate distress - Neck no masses, trachea midline - Respiratory normal respiratory effort - Abdomen Abdomen: soft, tender (Mild left lower quadrant tenderness to palpation), no guarding, no rigid, no rebound, no distended Hernia: umbilical - Genitourinary normal penis with no external lesions, testicles non-tender - Psychiatric oriented to time, oriented to person, oriented to place, speech is normal, memory intact Results - Labs 06/05/19 10:15 06/05/19 10:15 Abnormal Lab Results - Last 24 Hours (Table) 06/05/19 06/05/19 Range/Units 10:15 10:15 Creatinine 1.33 H (0.66-1.25) mg/dL Urine Protein 1+ H (Negative) Urine Blood Moderate H (Negative) Urine RBC >182 H (0-5) /hpf Urine Mucus Many H (None) /hpf Diabetes panel 06/05/19 Range/Units 10:15 Sodium 139 (137-145) mmol/L Potassium 4.2 (3.5-5.1) mmol/L Chloride 102 (98-107) mmol/L Carbon Dioxide 27 (22-30) mmol/L BUN 13 (9-20) mg/dL Creatinine 1.33 H (0.66-1.25) mg/dL Glucose 92 (74-99) mg/dL Calcium 9.3 (8.4-10.2) mg/dL AST 24 (17-59) U/L ALT 25 (21-72) U/L Alkaline Phosphatase 51 (38-126) U/L Total Protein 7.4 (6.3-8.2) g/dL Albumin 4.2 (3.5-5.0) g/dL Calcium panel 06/05/19 Range/Units 10:15 Calcium 9.3 (8.4-10.2) mg/dL Albumin 4.2 (3.5-5.0) g/dL Pituitary panel 06/05/19 Range/Units 10:15 Sodium 139 (137-145) mmol/L Potassium 4.2 (3.5-5.1) mmol/L Chloride 102 (98-107) mmol/L Carbon Dioxide 27 (22-30) mmol/L BUN 13 (9-20) mg/dL Creatinine 1.33 H (0.66-1.25) mg/dL Glucose 92 (74-99) mg/dL Calcium 9.3 (8.4-10.2) mg/dL Adrenal panel 06/05/19 Range/Units 10:15 Sodium 139 (137-145) mmol/L Potassium 4.2 (3.5-5.1) mmol/L Chloride 102 (98-107) mmol/L Carbon Dioxide 27 (22-30) mmol/L BUN 13 (9-20) mg/dL Creatinine 1.33 H (0.66-1.25) mg/dL Glucose 92 (74-99) mg/dL Calcium 9.3 (8.4-10.2) mg/dL Total Bilirubin 0.8 (0.2-1.3) mg/dL AST 24 (17-59) U/L ALT 25 (21-72) U/L Alkaline Phosphatase 51 (38-126) U/L Total Protein 7.4 (6.3-8.2) g/dL Albumin 4.2 (3.5-5.0) g/dL - Imaging CT scan - abdomen: report reviewed, image reviewed Assessment and Plan (1) Left ureteral calculus Current Visit: No Status: Acute Code(s): N20.1 - CALCULUS OF URETER SNOMED Code(s): 29260018 (2) Hydronephrosis with renal and ureteral calculus obstruction Current Visit: Yes Status: Acute Code(s): N13.2 - HYDRONEPHROSIS WITH RENAL AND URETERAL CALCULOUS OBSTRUCTION SNOMED Code(s): 602925888 Plan: I had a lengthy discussion with the patient regarding alternative treatment options. He has failed medical therapy and desires ureteroscopic removal of the calculus. Urinalysis shows positive nitrates, but he has taken Pyridium and therefore this is likely a false positive result rather than an underlying infection. The planned procedure was reviewed in detail (cystoscopy, left ureteroscopy with Holmium laser lithotripsy, left ureteral stent insertion). Risks were reviewed, which include anesthesia, bleeding, infection, and ureteral injury. Arrangements will be made for this to be performed later today. Time with Patient: Greater than 30
--- NOTE | 2019-06-06 14:31 | P.HPIM ---
History of Present Illness H&P Date: 06/06/19 Chief Complaint: Left flank pain Is a 39-year-old gentleman with history of gastroesophageal reflux disease, hypertension, hypothyroidism, renal calculi, cholecystectomy, appendectomy, umbilical hernia, chronic back pain presented to the ER with left flank pain which started on , accompanied by nausea,vomiting secondary to the pain, hematuria. Evaluated previously in the ER 3 days ago, CT at that time reported prior 3 mm left collecting system calculus in the past to distal ureter level not causing significant hydronephrosis-stable. Denies any fevers or chills. Denies any abdominal pain, diarrhea. Denies lightheadedness dizziness or focal deficits. Denies syncope. Denies chest pain, palpitations or shortness of breath. KUB reported nonobstructive bowel gas pattern, 2-3 mm distal left ureter calculus. CT of abdomen and pelvis reporting slight distal progression of 3-4 mm obstructing distal left ureter calculus , seemed stable mild to minimal left sided hydronephrosis. Afebrile, T-max 99.7, WBC within normal limits, creatinine 1.33. Vital signs stable. Urology consulted. IV fluids initiated. UA positive for nitrates, patient has been on Pyridium, False positive as per urology. Review of Systems ROS Statement: Those systems with pertinent positive or pertinent negative responses have been documented in the HPI. ROS Other: All systems not noted in ROS Statement are negative. Past Medical History Past Medical History: GERD/Reflux, Hypertension, Thyroid Disorder Additional Past Medical History / Comment(s): KIDNEY STONE,CHRONIC BACK PAIN, LOW THYROID, UMBILICAL HERNIA History of Any Multi-Drug Resistant Organisms: None Reported Past Surgical History: Appendectomy, Cholecystectomy Additional Past Surgical History / Comment(s): PAIN PROCEDURES, VASECTOMY Past Anesthesia/Blood Transfusion Reactions: No Reported Reaction Additional Past Anesthesia/Blood Transfusion Reaction / Comment(s): STATES "NOVOCAINE DOESN'T WORK ON ME" "TAKES MORE THAN NORMAL TO PUT ME OUT" Past Psychological History: No Psychological Hx Reported Additional Psychological History / Comment(s): . Smoking Status: Never smoker Past Alcohol Use History: None Reported Past Drug Use History: None Reported - Past Family History Mother History Unknown: Yes Family Medical History: Dementia Father Additional Family Medical History / Comment(s): SMOKER. Medications and Allergies Home Medications Medication Instructions Recorded Confirmed Type Levothyroxine Sodium [Synthroid] 50 mcg PO DAILY 03/30/14 06/05/19 History tiZANidine HCL [Zanaflex] 8 mg PO TID PRN 01/13/19 06/05/19 History Lisinopril [Zestril] 10 mg PO BID 01/26/19 06/05/19 History Testosterone Cypionate 130 mg IM Q72H 01/26/19 06/05/19 History [Depo-Testosterone] Aspirin EC [Ecotrin Low Dose] 81 mg PO DAILY #30 tablet.dr 01/27/19 06/05/19 Rx Acetaminophen Tab [Tylenol] 650 mg PO Q6H PRN 04/29/19 06/05/19 History amLODIPine [Norvasc] 5 mg PO DAILY 04/29/19 06/05/19 History Tamsulosin [Flomax] 0.4 mg PO BID 06/05/19 06/05/19 History Tamsulosin [Flomax] 0.4 mg PO DAILY #10 cap 06/05/19 Rx oxyCODONE HCL [Roxicodone] 10 mg PO TID PRN 06/05/19 06/05/19 History Allergies Allergy/AdvReac Type Severity Reaction Status Date / Time benzalkonium chloride Allergy Severe Swelling Verified 06/05/19 15:06 duloxetine HCl AdvReac Severe severe Verified 06/05/19 15:06 [From Cymbalta] headache gabapentin [From Neurontin] AdvReac HEADACHE Verified 06/05/19 15:06 Physical Exam Vitals: Vital Signs Temp Pulse Pulse Resp BP BP Pulse Ox 06/06/19 05:00 97.5 F L 62 18 103/67 96 06/05/19 21:00 98.7 F 86 18 106/53 95 06/05/19 16:30 99.7 F H 72 20 105/59 94 L 06/05/19 15:55 83 16 106/69 99 06/05/19 11:15 76 16 124/81 99 06/05/19 09:49 97.7 F 84 18 155/96 98 Intake and Output 06/05/19 06/06/19 06/06/19 22:59 06:59 14:59 Intake Total 1000 Balance 1000 Intake: Intake, IV Titration 1000 Amount Sodium Chloride 0.9% 1, 1000 000 ml @ 100 mls/hr IV . Q10H [facility] Rx#:[id number] Other: Voiding Method Toilet Toilet Urinal Urinal # Voids 2 2 VITAL SIGNS: As above GENERAL: Sitting up in bed, no acute distress HEENT: Conjunctivae normal. eyes normal. Oral mucosa moist NECK: No JVD. No thyroid enlargement. No LNs CARDIOVASCULAR: S1, S2 muffled. No murmur RESPIRATION: Unlabored, Breath sounds clear. No rhonchi or crackles. No bronchial breathing. ABDOMEN: Soft, nondistended, nontender, no palpable mass, umbilical hernia, No guardiing.Bowel sounds heard. LEGS: No edema. no swelling PSYCHIATRY: Alert and oriented -3, mood and affect normal. NERVOUS SYSTEM: Cranial N 2-12 grossly normal. Moves all 4 limbs. Diffuse weakness No focal deficits. Skin: no ulcer no rash Results CBC & Chem 7: 06/05/19 10:15 06/05/19 10:15 Labs: Abnormal Lab Results - Last 24 Hours (Table) 06/05/19 06/05/19 Range/Units 10:15 10:15 Creatinine 1.33 H (0.66-1.25) mg/dL Urine Protein 1+ H (Negative) Urine Blood Moderate H (Negative) Urine RBC >182 H (0-5) /hpf Urine Mucus Many H (None) /hpf Thrombosis Risk Factor Assmnt - Choose All That Apply Any of the Below Risk Factors Present?: Yes Each Factor Represents 1 point: Age 41-60 years, Obesity (BMI >25) Each Risk Factor Represents 3 Points: Family history of DVT/PE Thrombosis Risk Factor Assessment Total Risk Factor Score: 5 Thrombosis Risk Factor Assessment Level: High Risk Assessment and Plan Assessment: -Left flank pain, left ureteral calculus -Hydronephrosis with renal and ureteral calculus obstruction -Hypertension -Chronic back pain -Gastroesophageal reflux disease -History of polycythemia vera Plan: Continue current medication regime ,monitoring and symptomatic treatment. Maintain IV fluids. Pain management. Evaluated by urology, scheduled for ureteroscopic removal of calculus this afternoon. Discharge planning in progress for today post procedure pending [place] recommendations and clearance from urology. The impression and plan of care has been dictated as directed. : I performed a history and examination of this patient, discussed the same with the dictator. I agree with the dictator's note ,documented as a scribe. Any additional findings or plans will be noted. Time taken: 35 minutes
[2019-06-06 15:00] VITALS: BMI 30.8
[2019-06-06] MEDS: PANTOPRAZOLE 40 MG/10 ML VIAL IVP SCH (15:34)
[2019-06-06] MEDS ORDERED: IV FLUID CONTINUATION 1,000 ML IV ONE ×2 (16:35)
[2019-06-06] MEDS ORDERED: fentaNYL (PF) 50 MCG/ML 2 ML AMP IVP ONE (18:13)
[2019-06-06] MEDS ORDERED: SODIUM CHLORIDE 0.9% 1,000 ML IV ONE (18:38)
[2019-06-06] MEDS ORDERED: ONDANSETRON 4 MG/2 ML VIAL ONE (18:40)
[2019-06-06] MEDS ORDERED: GLYCOPYRROLATE 0.2 MG/ML 2 ML VIAL ONE (18:40)
[2019-06-06] MEDS ORDERED: DEXAMETHASONE SOD PHOS (MDV) 100 MG/10 ML VIAL ONE (18:40)
[2019-06-06] MEDS ORDERED: NEOSTIGMINE 1 MG/ML 10 ML VIAL ONE (18:40)
[2019-06-06] MEDS ORDERED: ROCURONIUM BROMIDE 10 MG/ML 10 ML VIAL IV ONE (18:40)
[2019-06-06] MEDS ORDERED: MIDAZOLAM 2 MG/2 ML VIAL ONE (18:40)
[2019-06-06] MEDS ORDERED: SUCCINYLCHOLINE CHLORIDE VIAL 200 MG/10 ML VIAL IV ONE (18:40)
[2019-06-06] MEDS ORDERED: PROPOFOL 10 MG/ML 20 ML VIAL IV ONE (18:40)
[2019-06-06] MEDS ORDERED: fentaNYL (PF) 50 MCG/ML 2 ML AMP ONE (18:40)
[2019-06-06] MEDS ORDERED: LIDOCAINE 1% INJ 10MG/ML (20 ML MDV) ONE (18:40)
[2019-06-06] MEDS ORDERED: FUROSEMIDE 10 MG/ML 2 ML VIAL ONE (18:40)
[2019-06-06] MEDS ORDERED: LACTATED RINGERS 1,000 ML IV ONE ×2 (19:17→20:12)
[2019-06-06] MEDS ORDERED: IOPAMIDOL-370 50ML BTL MISCELLANE ONE (19:32)
--- NOTE | 2019-06-06 20:02 | P.OP ---
Date of Procedure: 06/06/19 Preoperative Diagnosis: Left ureteral calculus Postoperative Diagnosis: Same Procedure(s) Performed: Cystoscopy, left ureteroscopy with ureteral balloon dilation and Holmium laser lithotripsy, left ureteral stent insertion Anesthesia: SIMÓN Surgeon: Jd Benitez Estimated Blood Loss (ml): 10 IV fluids (ml): 900 Pathology: other (Calculus fragmented, sent for chemical analysis) Condition: stable Disposition: PACU Indications for Procedure: The patient is a 39-year-old white male with a history of recurrent urolithiasis. He is admitted with intractable left renal colic due to a 4 mm left distal ureteral calculus. He has elected to undergo ureteroscopic removal of the calculus. Operative Findings: Left distal ureteral calculus, fragmented completely. The ureter distal to this was narrowed, requiring balloon dilation. Description of Procedure: The patient was taken to the operating room and placed in the dorsolithotomy position, with legs supported in Miky stirrups. The external genitalia was prepped and draped sterilely. The 30 lens was used to introduce the 22-[place] Stortz cystoscopic sheath through the urethra and into the bladder under direct vision. The prostatic urethra showed evidence of mild lateral lobe enlargement. The bladder was examined in its entirety. Both ureteral orifices were normal anatomic location and configuration. No tumors or foreign bodies were seen. A 12-[place] cone-tipped catheter was passed through the cystoscope. The left ureteral orifice was cannulated, and the catheter tip was advanced to dilate the left ureteral orifice. The [facility] semirigid ureteroscope was advanced into the bladder under direct vision, and the left ureteral orifice was cannulated. The ureteroscope was advanced several centimeters, and the calculus was identified. However, the ureter distal to this was narrowed. It was possible to get close enough to the calculus to perform lithotripsy. The 200 micron Holmium laser probe was passed through the ureteroscope, and lithotripsy was performed. A portion of the calculus refluxed proximally, and the ureteroscope could not be advanced to it. Therefore, a 0.035 inch Glidewire was passed through the ureteroscope and into the ureter. The ureteroscope was removed, and a 12-[place] balloon dilating catheter was passed over the wire. The balloon dilating catheter was used to dilate the distal ureter. After removing the balloon dilating catheter, ureteroscopy was repeated and lithotripsy was completed. Upon completion of the procedure, there were no residual calculus fragments exceeding 1 mm in size. There is no evidence of ureteral perforation. The ureter was oozing somewhat in the area that had been balloon dilated. The Glidewire was passed through the ureteroscope and up to the left renal pelvis. The ureteroscope was removed, and the Glidewire was backloaded into the cystoscope, which was passed into the bladder. A 28 cm, 4.8-[place] double-J ureteral stent was placed over the wire. Proper stent positioning was verified fluoroscopically and endoscopically. The bladder was emptied and the cystoscope removed. A small calculus fragment was retrieved. This was sent for chemical analysis. The patient tolerated the procedure well and was taken to the recovery room in stable condition. JESSIE ROCKS Report: Procedure Acuity: Urgent Stone Size and Location: 4 mm, left distal ureter Ureteral Dilation: Balloon Dilation Ureteral Access Sheath Used: No Stone Sent for Analysis: Yes All Stones/Fragments Were Removed with a Basket: No Complications: No Preoperative Antibiotics Given: Yes Stent Placed: Yes If Stent Placed, Was String Left Attached: No If Stent Placed, When is it to be Removed: 1 week Discharge Medications: N/A (In-patient)
[2019-06-06] MEDS ORDERED: tiZANidine 4 MG TAB PO PRN (22:28)
[2019-06-06 22:29] VITALS: RESP 18
[2019-06-07 05:39] VITALS: BP 106/66; PULSE 71; TEMP 98.3
[2019-06-07] MEDS: LEVOTHYROXINE 50 MCG TAB PO SCH (06:16)
[2019-06-07] MEDS: PANTOPRAZOLE 40 MG/10 ML VIAL IVP SCH (07:53)
[2019-06-07] MEDS: SODIUM CHLORIDE 0.9% 1,000 ML IV SCH (07:53)
[2019-06-07] MEDS: ASPIRIN 81 MG PO SCH (07:53)
[2019-06-07] MEDS: TAMSULOSIN 0.4 MG CAP.ER.24H PO SCH (07:53)
--- NOTE | 2019-06-07 07:53 | P.PN ---
Progress Note - Text Progress Note Date: 06/07/19 Mr. Crowder states that he is feeling much better today, though he had a "rough night" which he attributes to anesthesia. He has been afebrile with stable vital signs. From my standpoint, he may be discharged home and follow-up in one week for office cystoscopy with stent removal. I advised him to continue taking tamsulosin, as this may alleviate stent discomfort. Please notify me if I can be of any further assistance.
[2019-06-07] MEDS: LISINOPRIL 10 MG TAB PO SCH (07:54)
[2019-06-07] MEDS: amLODIPine 5 MG TAB PO SCH (07:54)
--- NOTE | 2019-06-07 09:43 | FL ---
EXAMINATION TYPE: FL guidance operating room DATE OF EXAM: 06/06/2019 HISTORY: Flouroscopy time 18 seconds of fluoroscopy provided. IMPRESSION: 1. Fluoroscopy time.
[2019-06-07 10:28] LABS: African American GFR (CKD) >90 (>60 ml/min/1.73 sqM); Anion Gap 9 mmol/L; Blood Urea Nitrogen 14 mg/dL (9-20); Calcium 9.2 mg/dL (8.4-10.2); Carbon Dioxide 26 mmol/L (22-30); Chloride 103 mmol/L (98-107); Glucose 118 mg/dL (74-99); Potassium 4.2 mmol/L (3.5-5.1); Sodium 138 mmol/L (137-145)
[2019-06-07 10:35] LABS: Basophils % (A) 0 %; Eosinophils % (A) 0 %; HCT 44.9 % (39.0-53.0); HGB 15.1 gm/dL (13.0-17.5); Lymphocytes # (A) 0.7 k/uL (1.0-4.8); Lymphocytes % (A) 6 %; MCH 30.3 pg (25.0-35.0); MCHC 33.7 g/dL (31.0-37.0); Mean Platelet Volume 9.1; Monocytes # (A) 0.4 k/uL (0-1.0); Monocytes % (A) 4 %; Neutrophils # (A) 9.9 k/uL (1.3-7.7); Neutrophils % (A) 89 %; Platelet Count 221 k/uL (150-450); RBC 4.99 m/uL (4.30-5.90); RDW 14.7 % (11.5-15.5); WBC 11.1 k/uL (3.8-10.6)
== END 2019-06-07 14:22 | disposition home or self-care (01) | DRG 661 ==
LOC: EC 09:48 → 4MS4W 15:18
PROVIDERS: ADMIT Family Medicine; ATTEND Family Medicine
PROC: 0T778DZ Dilation of Left Ureter with Intraluminal Device, Via Natural or Artificial Opening Endoscopic (ICD-10-PCS; principal; 2019-06-06 09:00)
PROC: 0TC78ZZ Extirpation of Matter from Left Ureter, Via Natural or Artificial Opening Endoscopic (ICD-10-PCS; 2019-06-06 09:00)
DX: N13.2 Hydronephrosis with renal and ureteral calculous obstruction (principal); E03.9 Hypothyroidism, unspecified; R31.0 Gross hematuria; K42.9 Umbilical hernia without obstruction or gangrene; G89.29 Other chronic pain; M54.9 Dorsalgia, unspecified; I10 Essential (primary) hypertension; K21.9 Gastro-esophageal reflux disease without esophagitis; Z79.82 Long term (current) use of aspirin; Z79.890 Hormone replacement therapy; Z79.899 Other long term (current) drug therapy; Z87.442 Personal history of urinary calculi; Z86.2 Personal history of diseases of the blood and blood-forming organs and certain disorders involving the immune mechanism; Z90.49 Acquired absence of other specified parts of digestive tract; Z88.8 Allergy status to other drugs, medicaments and biological substances; Z81.2 Family history of tobacco abuse and dependence; Z81.8 Family history of other mental and behavioral disorders
CPT/HCPCS: 36415; 74018; 74176; 80048; 80053; 81001; 83605; 83690; 85025; 88300; 96361; 96374; 96375; 96376; 99285

== ENCOUNTER 2019-08-02 06:13 | Day surgery (SDC) | payer OTHER ==
[2019-07-29 12:30] VITALS: BMI 32.1
[~2019-08-02 06:13] MED LIST changes: -IV FLUID CONTINUATION 1,000 ML IV ONE; -LIDOCAINE 1% 20 ML VIAL (10MG/ML) FOR IV START INTRADERMA ONE; -ONDANSETRON 4 MG/2 ML VIAL IVP ONE
[2019-08-02] MEDS ORDERED: LIDOCAINE 1% 20 ML VIAL (10MG/ML) FOR IV START INTRADERMA ONE (06:30)
[2019-08-02 06:31] VITALS: TEMP 97.4
[2019-08-02] MEDS ORDERED: ONDANSETRON 4 MG/2 ML VIAL IVP ONE (06:33)
[2019-08-02] MEDS ORDERED: IV FLUID CONTINUATION 1,000 ML IV ONE (07:46)
[2019-08-02 07:50] VITALS: RESP 18
--- NOTE | 2019-08-02 07:50 | P.PCN ---
Date of Procedure: 08/02/19 Procedure(s) Performed: PREOPERATIVE DIAGNOSIS: 1-Lumbosacral spondylosis with facet arthropathy without myelopathy. 2- bilateral sacroiliit. 3-myofascial pain syndrome thoracic area post operative Diagnosis: . 1-Lumbosacral spondylosis with facet arthropathy without myelopathy. 2-bilateral sacroiliit. 3-myofascial pain syndrome thoracic area PROCEDURES: 1- Right radiofrequency thermocoagulation/ablation of the L5 dorsal ramus. 2- Right multi-site radiofrequency thermocoagulation/ablation of the S1, S2, and S3 lateral branchs. 3-trigger point injection in the thoracic paravertebral muscles 2 on the right side ,and 1 on the left side thoracic paravertebral muscles The procedure was performed using fluoroscopic guidance during needle placement to assure proper position and maximize safety (fluoroscopy images available in radiology department) . ANESTHESIA= moderate sedation with intravenous versed 2 mg and Fentanyle 100 mcg EBL: NONE INDICATION/MEDICAL NECESSITY: History of low back pain secondary to bilateral sacroiliitis and myofascial pain syndrome thoracic area and lumbosacral facet arthropathy unresponsive to more conservative treatments. The patient reported more than 50% relief of pain symptoms following 2 previous diagnostic blocks with Bupivacaine. PROCEDURE DESCRIPTION: The patient was seen and identified in the preoperative area. Risks, benefits, complications, and alternatives were discussed with the patient. The patient agreed to proceed with the procedure and signed the consent. Vital signs were checked before and after the procedure and they remained stable. Patient ambulated to the procedure room and time out was completed. The patient was placed in the prone position on the procedure table and a pillow was placed under the abdomen to reduce lumbar lordosis. The lumbosacral area was prepped and draped in the usual sterile fashion. Critical pause was taken. L5 Dorsal Ramus RF: Using right oblique fluoroscopy, the junction of the transverse process and the superior articular process of the right S1 vertebra, which correspond to the fluoroscopic image of the "eye of the John dog" was identified. Subsequently, a 10-cm 20 -gauge radiofrequency cannula with a 10-mm active tip was advanced under fluoroscopic guidance until contact was made with periosteum. At this level, the Sensory testing of the L5 dorsal ramus was performed at 50 Hz and 0 to 1 volt with production of concordant pain starting at 0.5 volt. Motor stimulation was done at 2.5 Hz with stimulation of mulitifidus muscle contration . No radicular symptoms or paresthesias were produced during the testing. Subsequently, the L5 dorsal ramus was subjected to a radiofrequency ablation at 80 degree celsius for 90 seconds . after 0.5% Bupivacaine 1 ml injected at each level after negative aspirations . The needle was withdrawn intact the procedure was repeated on the left side using the same technique. S1, S3, and S3 Lateral Branch RF: The lateral margins of the Right S1, S2, and S3 foramina were not identified using AP fluoroscopy. Under fluoroscopic guidance, three 10-cm 20 -gauge radiofrequency cannula with a 10-mm active tip were inserted at 8-10 mm medial to the age of the right sacroiliac joint starting from the inferior border of the joint , going superiorly , total of 6 needle was placed , the sensory testing of the lateral branch was performed at 50 Hz and 0 to 1 volt at the three levels with production of concordant pain starting at 0.5 volt. Motor stimulation was done at 2.5 Hz. No radicular symptoms or paresthesias were produced during the testing. Subsequently, the S1,S2 ,S3 lateral branch was subjected to a radiofrequency ablation at a mode of 90 seconds at 80 degrees Celsius at the 3 levels , and then before the needles taken on ropivacaine 0.5% 6 and mixed with 40 mg of Depo-Medrol, mixed together and 1 mL injected at each level and before the needles taken out . then the trigger points injection done sterile technique, the thoracic area was prepped with Betadine 3, been using 25-gauge needle , 2 trigger point injected on the right side thoracic paravertebral muscles 0.5% ropivacaine 2ml injected on the right side thoracic paravertebral muscles ( 2 trigger points ), and the same time for the left side thoracic paravertebral muscles, injection done after negative aspiration and there was no paresthesia during the injection. Patient tolerated the procedure well without any complications. COMPLICATIONS: The patient tolerated the procedure well without any acute complications. DISPOSTION/PLAN: The patient ambulated to the recovery area after the procedure in a stable condition for observation. Patient was reexamined prior to discharge. Patient was observed for 30 minutes in the recovery area and was discharged home, accompanied by an adult, after meeting discharged criteria. Discharge instructions were give to the patient by the staff. Patient was specifically instructed not to drive today and to rest for the rest of the day. The patient will schedule a follow up visit in the clinic in weeks or earlier if needed.
[2019-08-02 08:09] VITALS: BP 103/67; PULSE 74
--- NOTE | 2019-08-02 16:15 | FL ---
Fluoroscopy HISTORY: Pain 18 seconds fluoroscopy time supplied to the referring clinician. 9 intraoperative C-arm images docum ent the procedure. See dictated report from anesthesia.
== END 2019-08-02 08:19 | disposition home or self-care (01) ==
LOC: ORPAIN 06:13
PROVIDERS: ATTEND Specialist
DX: M47.817 Spondylosis without myelopathy or radiculopathy, lumbosacral region (principal); M79.18 Myalgia, other site; I10 Essential (primary) hypertension; K21.9 Gastro-esophageal reflux disease without esophagitis; E07.9 Disorder of thyroid, unspecified; Z88.8 Allergy status to other drugs, medicaments and biological substances; Z91.048 Other nonmedicinal substance allergy status
CPT/HCPCS: 64640; 20553; 64635; J2250; J1030; J2405; J3010; 99152; 99153

== ENCOUNTER 2019-08-24 06:06 | Day surgery (SDC) | payer OTHER ==
[2019-08-24] MEDS ORDERED: LACTATED RINGERS 1,000 ML IV ONE (06:32)
[2019-08-24 06:38] VITALS: TEMP 98.5
[2019-08-24] MEDS ORDERED: ONDANSETRON 4 MG/2 ML VIAL IVP ONE (07:05)
--- NOTE | 2019-08-24 08:19 | P.PCN ---
Date of Procedure: 08/24/19 Procedure(s) Performed: PREOPERATIVE DIAGNOSIS: 1-Lumbosacral spondylosis with facet arthropathy without myelopathy. 2- bilateral sacroiliit. 3-myofascial pain syndrome thoracic area post operative Diagnosis: . 1-Lumbosacral spondylosis with facet arthropathy without myelopathy. 2-bilateral sacroiliit. 3-myofascial pain syndrome thoracic area PROCEDURES: 1- Left radiofrequency thermocoagulation/ablation of the L5 dorsal ramus. 2- Left multi-site radiofrequency thermocoagulation/ablation of the S1, S2, and S3 lateral branchs. 3-trigger point injection in the thoracic paravertebral muscles 2 on the right side ,and 1 on the left side thoracic paravertebral muscles The procedure was performed using fluoroscopic guidance during needle placement to assure proper position and maximize safety (fluoroscopy images available in radiology department) . ANESTHESIA= moderate sedation with intravenous versed 2 mg and Fentanyle 100 mcg EBL: NONE INDICATION/MEDICAL NECESSITY: History of low back pain secondary to bilateral sacroiliitis and myofascial pain syndrome thoracic area and lumbosacral facet arthropathy unresponsive to more conservative treatments. The patient reported more than 50% relief of pain symptoms following 2 previous diagnostic blocks with Bupivacaine. PROCEDURE DESCRIPTION: The patient was seen and identified in the preoperative area. Risks, benefits, complications, and alternatives were discussed with the patient. The patient agreed to proceed with the procedure and signed the consent. Vital signs were checked before and after the procedure and they remained stable. Patient ambulated to the procedure room and time out was completed. The patient was placed in the prone position on the procedure table and a pillow was placed under the abdomen to reduce lumbar lordosis. The lumbosacral area was prepped and draped in the usual sterile fashion. Critical pause was taken. L5 Dorsal Ramus RF: Using right oblique fluoroscopy, the junction of the transverse process and the superior articular process of the Left S1 vertebra, which correspond to the fluoroscopic image of the "eye of the John dog" was identified. Subsequently, a 10-cm 20 -gauge radiofrequency cannula with a 10-mm active tip was advanced under fluoroscopic guidance until contact was made with periosteum. At this level, the Sensory testing of the L5 dorsal ramus was performed at 50 Hz and 0 to 1 volt with production of concordant pain starting at 0.5 volt. Motor stimulation was done at 2.5 Hz with stimulation of mulitifidus muscle contration . No radicular symptoms or paresthesias were produced during the testing. Subsequently, the L5 dorsal ramus was subjected to a radiofrequency ablation at 80 degree celsius for 90 seconds . after 0.5% Bupivacaine 1 ml injected at each level after negative aspirations . S1, S3, and S3 Lateral Branch RF: The lateral margins of the Left S1, S2, and S3 foramina were not identified using AP fluoroscopy. Under fluoroscopic guidance, three 10-cm 20 -gauge radiofrequency cannula with a 10-mm active tip were inserted at 8-10 mm medial to the age of the Left sacroiliac joint starting from the inferior border of the joint , going superiorly , total of 6 needle was placed , the sensory testing of the lateral branch was performed at 50 Hz and 0 to 1 volt at the three levels with production of concordant pain starting at 0.5 volt. Motor stimulation was done at 2.5 Hz. No radicular symptoms or paresthesias were produced during the testing. Subsequently, the S1,S2 ,S3 lateral branch was subjected to a radio frequency ablation at a mode of 90 seconds at 80 degrees Celsius at the 3 levels , and then before the needles taken on ropivacaine 0.5% 6 and mixed with 40 mg of Depo-Medrol, mixed together and 1 mL injected at each level and before the needles taken out then the trigger points injection done sterile technique, the thoracic area was prepped with Betadine 3, been using 25-gauge needle , 2 trigger point injected on the right side thoracic paravertebral muscles 0.5% ropivacaine 2ml injected on the right side thoracic paravertebral muscles ( 2 trigger points ), and the same time for the left side thoracic paravertebral muscles, injection done after negative aspiration and there was no paresthesia during the injection. Patient tolerated the procedure well without any complications. COMPLICATIONS: The patient tolerated the procedure well without any acute complications. DISPOSTION/PLAN: The patient ambulated to the recovery area after the procedure in a stable condition for observation. Patient was reexamined prior to discharge. Patient was observed for 30 minutes in the recovery area and was discharged home, accompanied by an adult, after meeting discharged criteria. Discharge instructions were give to the patient by the staff. Patient was specifically instructed not to drive today and to rest for the rest of the day. The patient will schedule a follow up visit in the clinic in weeks or earlier if needed.
[2019-08-24] MEDS ORDERED: IV FLUID CONTINUATION 1,000 ML IV ONE (08:22)
[2019-08-24 09:55] VITALS: BP 99/70; PULSE 61; RESP 17
--- NOTE | 2019-08-24 10:16 | FL ---
EXAMINATION TYPE: FL guided pain mgmt statistic DATE OF EXAM: 08/24/2019 HISTORY: Flouroscopy time 35 seconds of fluoroscopy provided. IMPRESSION: 1. Fluoroscopy time.
== END 2019-08-24 09:50 | disposition home or self-care (01) ==
LOC: ORPAIN 06:06
PROVIDERS: ATTEND Specialist
DX: M47.817 Spondylosis without myelopathy or radiculopathy, lumbosacral region (principal); M46.1 Sacroiliitis, not elsewhere classified; M79.18 Myalgia, other site; Z88.8 Allergy status to other drugs, medicaments and biological substances
CPT/HCPCS: 20553; 64640 ×3; 64635; J2250; J1030; J2405; J3010; 99152; 99153

== ENCOUNTER → 2019-09-16 | Outpatient (CLI) | payer OTHER ==
[2019-09-16 14:17] LABS: Basophils # (A) 0.1 k/uL (0-0.2); Basophils % (A) 1 %; Eosinophils # (A) 0.2 k/uL (0-0.7); Eosinophils % (A) 2 %; HCT 52.9 % (39.0-53.0); HGB 17.4 gm/dL (13.0-17.5); Lymphocytes # (A) 1.2 k/uL (1.0-4.8); Lymphocytes % (A) 19 %; MCH 30.5 pg (25.0-35.0); MCHC 32.9 g/dL (31.0-37.0); MCV 92.7 fL (80.0-100.0); Mean Platelet Volume 8.1; Monocytes # (A) 0.4 k/uL (0-1.0); Monocytes % (A) 6 %; Neutrophils # (A) 4.5 k/uL (1.3-7.7); Neutrophils % (A) 69 %; Platelet Count 234 k/uL (150-450); RDW 13.4 % (11.5-15.5); WBC 6.6 k/uL (3.8-10.6)
[2019-09-16 15:25] LABS: Erythrocyte Sedimentation Rate 2 mm/hr (0-15)
[2019-09-16 18:32] LABS: ALT 30 U/L (10-49); AST 32 U/L (14-35); African American GFR (CKD) 86.5 (60.0-200.0); BUN/Creat Ratio 13.33 Ratio (12.00-20.00); C Reactive Protein <0.4 mg/dL (0.0-0.8); Calcium 9.3 mg/dL (8.7-10.3); Carbon Dioxide 30.6 mmol/L (21.6-31.8); Chloride 101 mmol/L (96-109); Glucose 90 mg/dL (70-110); Non-African American GFR(CKD) 74.7 (60.0-200.0); Potassium 4.2 mmol/L (3.5-5.5); Sodium 138 mmol/L (135-145)
== END | disposition home or self-care (01) ==
LOC: LABWHC1 12:54
PROVIDERS: ATTEND Family Medicine
DX: M15.8 Other polyosteoarthritis (principal)
CPT/HCPCS: 36415; 80048; 84450; 84460; 85025; 85652; 86038; 86140; 86162; 86235

== ENCOUNTER 2019-09-19 12:17 | Emergency (ER) | payer OTHER ==
[2019-09-19 12:33] VITALS: TEMP 98.4
[2019-09-19] MEDS ORDERED: TAMSULOSIN 0.4 MG CAP.ER.24H PO STA (13:12)
[2019-09-19] MEDS ORDERED: HYDROmorphone 1 MG/ML 1 ML SYRINGE IVP STA ×2 (13:12→15:43)
[2019-09-19] MEDS ORDERED: ONDANSETRON 4 MG/2 ML VIAL IVP STA (13:12)
[2019-09-19] MEDS ORDERED: SODIUM CHLORIDE 0.9% 2,000 ML IV STA (13:12)
[2019-09-19] MEDS ORDERED: KETOROLAC 30 MG/ML 1 ML VIAL IVP STA (13:12)
--- NOTE | 2019-09-19 13:16 | ED ---
Abdominal Pain HPI - General Chief Complaint: Abdominal Pain Stated Complaint: kidney problems Time Seen by Provider: 09/19/19 12:51 Source: patient, RN notes reviewed Mode of arrival: ambulatory Limitations: no limitations - History of Present Illness Initial Comments: 39-year-old male presents emergency Department chief complaint left flank pain. Patient states he has not felt well last few days but states he felt severe left flank pain on alleviated with his oxycodone at home. Patient states she's had multiple procedures by Dr. Benitez in the past including stenting. He states he has difficulty passing his kidney stones. Patient states he called but they were unable to see him today in which she is scheduled appointment at 7:30 tomorrow morning. Patient admits to nausea denies any diarrhea, melena. Patient states that he felt that he noticed some hematuria. Patient denies any chest pain or shortness of breath. - Related Data Home Medications Medication Instructions Recorded Confirmed Levothyroxine Sodium [Synthroid] 50 mcg PO DAILY 03/30/14 08/24/19 tiZANidine HCL [Zanaflex] 8 mg PO TID PRN 01/13/19 08/24/19 Lisinopril [Zestril] 10 mg PO BID 01/26/19 08/24/19 Testosterone Cypionate 130 mg IM Q72H 01/26/19 08/24/19 [Depo-Testosterone] Acetaminophen Tab [Tylenol] 650 mg PO Q6H PRN 04/29/19 08/24/19 amLODIPine [Norvasc] 5 mg PO DAILY 04/29/19 08/24/19 oxyCODONE HCL [Roxicodone] 10 mg PO TID PRN 06/05/19 08/24/19 Previous Rx's Medication Instructions Recorded Aspirin EC [Ecotrin Low Dose] 81 mg PO DAILY #30 tablet. 01/27/19 Tamsulosin [Flomax] 0.4 mg PO DAILY #30 cap 06/07/19 Ondansetron Odt [Zofran Odt] 4 mg PO Q8HR PRN #10 tab 09/19/19 Tamsulosin [Flomax] 0.4 mg PO DAILY #7 cap 09/19/19 Allergies Allergy/AdvReac Type Severity Reaction Status Date / Time benzalkonium chloride Allergy Severe Swelling Verified 08/24/19 06:39 duloxetine HCl AdvReac Severe severe Verified 08/24/19 06:39 [From Cymbalta] headache gabapentin [From Neurontin] AdvReac HEADACHE Verified 08/24/19 06:39 Review of Systems ROS Statement: Those systems with pertinent positive or pertinent negative responses have been documented in the HPI. ROS Other: All systems not noted in ROS Statement are negative. Past Medical History Past Medical History: GERD/Reflux, Hypertension, Thyroid Disorder Additional Past Medical History / Comment(s): KIDNEY STONE,CHRONIC BACK PAIN, LOW THYROID, UMBILICAL HERNIA History of Any Multi-Drug Resistant Organisms: None Reported Past Surgical History: Appendectomy, Cholecystectomy Additional Past Surgical History / Comment(s): PAIN PROCEDURES, VASECTOMY Past Anesthesia/Blood Transfusion Reactions: No Reported Reaction Additional Past Anesthesia/Blood Transfusion Reaction / Comment(s): STATES "NOVOCAINE DOESN'T WORK ON ME" "TAKES MORE THAN NORMAL TO PUT ME OUT" Past Psychological History: No Psychological Hx Reported Smoking Status: Never smoker Past Alcohol Use History: None Reported Past Drug Use History: None Reported - Past Family History Mother History Unknown: Yes Family Medical History: Dementia Father Additional Family Medical History / Comment(s): SMOKER. General Exam Limitations: no limitations General appearance: alert, in no apparent distress Head exam: Present: atraumatic, normocephalic, normal inspection Neck exam: Present: normal inspection. Absent: tenderness, meningismus, lymphadenopathy Respiratory exam: Present: normal lung sounds bilaterally. Absent: respiratory distress, wheezes, rales, rhonchi, stridor Cardiovascular Exam: Present: regular rate, normal rhythm, normal heart sounds. Absent: systolic murmur, diastolic murmur, rubs, gallop, clicks GI/Abdominal exam: Present: soft, tenderness (Mild left-sided), normal bowel sounds. Absent: distended, guarding, rebound, rigid Back exam: Present: CVA tenderness (R). Absent: CVA tenderness (L) Neurological exam: Present: alert, oriented X3, CN II-XII intact Skin exam: Present: warm, dry, intact, normal color. Absent: rash Course Vital Signs 09/19/19 12:31 Temperature 98.4 F Pulse Rate 75 Respiratory 19 Rate Blood Pressure 135/83 O2 Sat by Pulse 97 Oximetry Medical Decision Making - Medical Decision Making Patient's labs and urinalysis unremarkable x-ray does not show anything specific. Patient has appointment morning with urology. Patient be discharged at this time return parameters were discussed. - Lab Data Result diagrams: 09/19/19 13:38 09/19/19 13:38 Lab Results 09/19/19 09/19/19 09/19/19 Range/Units 13:38 13:38 15:43 WBC 7.4 (3.8-10.6) k/uL RBC 5.78 (4.30-5.90) m/uL Hgb 17.4 (13.0-17.5) gm/dL Hct 53.0 (39.0-53.0) % MCV 91.8 (80.0-100.0) fL MCH 30.1 (25.0-35.0) pg MCHC 32.8 (31.0-37.0) g/dL RDW 13.4 (11.5-15.5) % Plt Count 238 (150-450) k/uL Neutrophils % 69 % Lymphocytes % 19 % Monocytes % 7 % Eosinophils % 3 % Basophils % 0 % Neutrophils # 5.1 (1.3-7.7) k/uL Lymphocytes # 1.4 (1.0-4.8) k/uL Monocytes # 0.5 (0-1.0) k/uL Eosinophils # 0.2 (0-0.7) k/uL Basophils # 0.0 (0-0.2) k/uL Sodium 139 (137-145) mmol/L Potassium 4.2 (3.5-5.1) mmol/L Chloride 103 (98-107) mmol/L Carbon Dioxide 28 (22-30) mmol/L Anion Gap 8 mmol/L BUN 12 (9-20) mg/dL Creatinine 1.11 (0.66-1.25) mg/dL Est GFR (CKD-EPI)AfAm >90 (>60 ml/min/1.73 sqM) Est GFR (CKD-EPI)NonAf 82 (>60 ml/min/1.73 sqM) Glucose 102 H (74-99) mg/dL Calcium 9.5 (8.4-10.2) mg/dL Total Bilirubin 0.6 (0.2-1.3) mg/dL AST 26 (17-59) U/L ALT 36 (21-72) U/L Alkaline Phosphatase 58 (38-126) U/L Total Protein 7.5 (6.3-8.2) g/dL Albumin 4.5 (3.5-5.0) g/dL Amylase 61 (30-110) U/L Lipase 279 (23-300) U/L Urine Color Yellow Urine Appearance Clear (Clear) Urine pH 6.0 (5.0-8.0) Ur Specific [place] 1.026 (1.001-1.035) Urine Protein Trace H (Negative) Urine Glucose (UA) Negative (Negative) Urine Ketones Trace H (Negative) Urine Blood Negative (Negative) Urine Nitrite Negative (Negative) Urine Bilirubin Negative (Negative) Urine Urobilinogen <2.0 (<2.0) mg/dL Ur Leukocyte Esterase Negative (Negative) Disposition Clinical Impression: Flank pain Disposition: HOME SELF-CARE Condition: Stable Instructions (If sedation given, give patient instructions): Abdominal Pain (ED) Additional Instructions: Please return to the Emergency Department if symptoms worsen or any other concerns. Prescriptions: Tamsulosin [Flomax] 0.4 mg PO DAILY #7 cap Ondansetron Odt [Zofran Odt] 4 mg PO Q8HR PRN #10 tab PRN Reason: Nausea Is patient prescribed a controlled substance at d/c from ED?: No Referrals: Ryan Loving Jr, DO [Primary Care Provider] - 1-2 days Time of Disposition: 15:59
[2019-09-19 13:57] LABS: Basophils % (A) 0 %; Eosinophils # (A) 0.2 k/uL (0-0.7); Eosinophils % (A) 3 %; HGB 17.4 gm/dL (13.0-17.5); Lymphocytes # (A) 1.4 k/uL (1.0-4.8); Lymphocytes % (A) 19 %; MCH 30.1 pg (25.0-35.0); MCHC 32.8 g/dL (31.0-37.0); MCV 91.8 fL (80.0-100.0); Mean Platelet Volume 9.3; Monocytes # (A) 0.5 k/uL (0-1.0); Monocytes % (A) 7 %; Neutrophils # (A) 5.1 k/uL (1.3-7.7); Neutrophils % (A) 69 %; Platelet Count 238 k/uL (150-450); RBC 5.78 m/uL (4.30-5.90); RDW 13.4 % (11.5-15.5); WBC 7.4 k/uL (3.8-10.6)
[2019-09-19 14:16] LABS: ALT 36 U/L (21-72); AST 26 U/L (17-59); African American GFR (CKD) >90 (>60 ml/min/1.73 sqM); Albumin 4.5 g/dL (3.5-5.0); Alkaline Phosphatase 58 U/L (38-126); Amylase 61 U/L (30-110); Anion Gap 8 mmol/L; Blood Urea Nitrogen 12 mg/dL (9-20); Calcium 9.5 mg/dL (8.4-10.2); Carbon Dioxide 28 mmol/L (22-30); Chloride 103 mmol/L (98-107); Glucose 102 mg/dL (74-99); Non-African American GFR(CKD) 82 (>60 ml/min/1.73 sqM); Potassium 4.2 mmol/L (3.5-5.1); Sodium 139 mmol/L (137-145); Total Bilirubin 0.6 mg/dL (0.2-1.3); Total Protein 7.5 g/dL (6.3-8.2)
--- NOTE | 2019-09-19 14:26 | XR ---
EXAMINATION TYPE: XR KUB DATE OF EXAM: 09/19/2019 COMPARISON: 06/05/2019 HISTORY: Pain TECHNIQUE: One view abdominal series FINDINGS: The osseous structures are intact. The bowel gas pattern is nonspecific. Surgical clips in the right upper quadrant. IMPRESSION: 1. Nonspecific abdomen.
[2019-09-19] MEDS ORDERED: diphenhydrAMINE 50 MG/ML 1 ML VIAL IVP STA (15:43)
[2019-09-19] MEDS ORDERED: METOCLOPRAMIDE 5 MG/ML 2 ML VIAL IVP STA (15:43)
[2019-09-19 15:51] LABS: Appearance,Urine Clear (Clear); Bilirubin,Urine Negative (Negative); Blood,Urine Negative (Negative); Color,Urine Yellow; Glucose,Urine (UA) Negative (Negative); Ketones,Urine Trace (Negative); Leukocyte Esterase,Urine Negative (Negative); Nitrite,Urine Negative (Negative); Protein,Urine Trace (Negative); Specific Gravity,Urine 1.026 (1.001-1.035); Urobilinogen,Urine <2.0 mg/dL (<2.0)
[2019-09-19 16:09] VITALS: RESP 18
[2019-09-19 16:18] VITALS: BP 124/80; PULSE 80
== END 2019-09-19 16:14 | disposition home or self-care (01) ==
LOC: EC 12:17
DX: R10.9 Unspecified abdominal pain (principal); E03.9 Hypothyroidism, unspecified; I10 Essential (primary) hypertension; Z79.890 Hormone replacement therapy; Z79.899 Other long term (current) drug therapy; Z88.8 Allergy status to other drugs, medicaments and biological substances; Z87.19 Personal history of other diseases of the digestive system; Z87.442 Personal history of urinary calculi; Z90.49 Acquired absence of other specified parts of digestive tract; Z98.890 Other specified postprocedural states
CPT/HCPCS: 99284; 96374; 96376; 96375 ×4; 96361 ×2; 36415; 80053; 82150; 83690; 85025; 81003; 74018; J1200; J2765; J2405; J1885; J1170

== ENCOUNTER → 2019-09-26 | Outpatient (CLI) | payer OTHER ==
[2019-09-26 14:45] VITALS: BP 155/93; PULSE 78; RESP 16
--- NOTE | 2019-09-29 08:03 | P.PAINPG ---
Subjective Progress Note Date: 09/26/19 This is a follow-up visit for this 39 y/o patient with a history of severe and chronic low back pain secondary to , lumbar spondylosis with facet arthropathy, and bilateral sacroiliitis We have done interventional pain procedures radiofrequency ablation of the medial branch lumbar area (last done in November 2018) , most recently we have done sacral iliac radio frequency ablation done on 08/02/2019 and 08/24/2019 which improved his low back pain today, he reports that his pain is primarily above the region of his SI joint greater frequency ablation, and he is requesting repeat lumbar radio frequency ablation. Patients currently on oxycodone 5 mg once or twice a day- this he uses sparingly, Zanaflex 8 mg twice a day. His primary care physician has recently started Lyrica, 100 mg daily, he reports good benefit from this. Patient denies excessive drowsiness or sleepiness, denies suicidal ideation, and reports that the current pain medication is helping to control the pain ,and improve activity of daily living , he does endorse mild constipation Patient denies any motor or sensory deficit , patient denies any fever or night sweats, denies any change in the bowel movements or urination Review of systems is negative for chest pain, shortness of breath, new onset weakness, numbness/tingling, abdominal pain, malaise, fever, night sweats, chills, homicidal or suicidal ideation, or bowel or bladder incontinence. Physical Examinations : Physical exam: Vitals: Reviewed in EMR GENERAL: Well appearing, in no acute distress PSYCH: Mood and affect is appropriate. Awake, alert, and oriented SKIN: Skin color, texture, turgor normal, no rashes or lesions HEENT: Normocephalic, atraumatic. EOM intact CV: No pedal edema RESP: Respirations are unlabored, no audible wheezing GI: Abdomen non-distended MUSCULOSKELETAL: Bilateral lower extremity strength is normal and symmetric. No atrophy or tone abnormalities are noted. range of motion Lumbar spine: Straight leg raising in the sitting position is negative for radicular pain. tenderness to palpation over the lumbar spine and paraspinous muscles. positive for pain with facet loading and back extension/rotation bilaterally. Buttocks: tenderness to palpation over the bilateral PSIS, bilateral Yair test is positive Extremities: Peripheral joint ROM is full and pain free without obvious instability or laxity in all four extremities. No edema or skin discolorations noted. NEUR: Bilateral lower extremity coordination and muscle stretch reflexes are physiologic and symmetric. Negative clonus bilaterally. No loss of sensation is noted. Assessment and plan = Chronic low back pain secondary to , lumbar spondylosis with facet arthropathy without myelopathy , bilateral sacroiliitis, myofascial pain syndrome thoracic area Patient had good benefit following bilateral SI joint radiofrequency ablation. Today, his pain is primarily in the lumbar region. He has had previous benefit from lumbar radiofrequency ablation. We will schedule right sided lumbar radiofrequency ablation at L3, L4, L5, to be followed by left. chronic and current use of high-risk medication (Opioids). The patient was counseled about risk of opioid use, patient's verbalized understanding that the lack of compliance will result in failure to renew narcotic prescription and possible discharge from the clinic - diagnoses, prognosis, and treatment options including but not limited to physical therapy, surgical interventions, interventional therapies , and medication management including narcotics and adjuvant medication were discussed with the patient and all the questions answered MAPS reviewed and it was appropriate, UDS order today Prescription refill for Zanaflex 8 mg 12 hours dispense 60 with 2 refills, oxycodone was not refilled today, as patient does have a prescription yet to be filled. he can continue Lyrica prescribed by his primary care physician. follow-up: For above-mentioned procedure and in 8 weeks for medication refill Objective - Vital Signs Vital signs: Vital Signs Temp Pulse 78 09/26/19 14:35 Resp 16 09/26/19 14:35 BP 155/93 09/26/19 14:35 Pulse Ox 98 09/26/19 14:35 PQRS Measure Charge Sheet Measure #130: Documentation of Current Meds in Medical Chart: Patient's medications documented in chart Measure #226: Tobacco Use: Screen & Cessation Intervention: Pt not a tobacco user Measure #111: Pneumonia Vaccination: Pneumococcal vaccine NOT administered or previously given Measure #47: Advance Care Plan: Advance care planning discussed & documented, pt chose/unable to give Measure #412: Opioid Treatment Agreement: Documented signed opioid trtmnt agreemnt min once during opioid trtmnt Measure #408: Opioid Therapy Follow-up Evaluation: Patient had f/u eval minimum every 3 months during opioid therapy Measure #317: Preventitive Care & Scrn High Bld Press & F/U: Pre-hypertensive or hypertensive BP documented, pt will f/u with PCP Measure #128: Body Mass Index (BMI) Screening & Follow-up: BMI documented ABOVE normal parameters - f/u documented Measure #131: Pain Assessment & Follow-up: Pain positive & plan documented, Follow-up scheduled Measure #431: Unhealthy Alcohol Use Preventative Care & Scrn: Patient not identified as an unhealthy alcohol user PQRS Narrative: Smoking Status Never smoker Narcotic Agreement Date Signed 02/17/19 Blood Pressure 155/93 Pain Intensity [Lower Back] 8 Scale Used Numeric (1 - 10) Hx Alcohol Use (MH) No Home Medications: Ambulatory Orders Levothyroxine Sodium [Synthroid] 50 mcg PO DAILY 03/30/14 tiZANidine HCL [Zanaflex] 8 mg PO TID PRN 01/13/19 Lisinopril [Zestril] 10 mg PO BID 01/26/19 Testosterone Cypionate [Depo-Testosterone] 130 mg IM Q72H 01/26/19 Aspirin EC [Ecotrin Low Dose] 81 mg PO DAILY #30 tablet. 01/27/19 Acetaminophen Tab [Tylenol] 650 mg PO Q6H PRN 04/29/19 amLODIPine [Norvasc] 5 mg PO DAILY 04/29/19 oxyCODONE HCL [Roxicodone] 10 mg PO TID PRN 06/05/19 Ondansetron Odt [Zofran Odt] 4 mg PO Q8HR PRN #10 tab 09/19/19 Tamsulosin [Flomax] 0.4 mg PO DAILY #7 cap 09/19/19 Pregabalin [Lyrica] 100 mg PO DAILY 09/22/19 Controlled Substance Measures - Controlled Substance Measures Is patient prescribed a controlled substance at discharge?: No
== END | disposition home or self-care (01) ==
LOC: PNWHC3 13:59
PROVIDERS: ATTEND Anesthesiology
DX: G89.29 Other chronic pain (principal); M47.816 Spondylosis without myelopathy or radiculopathy, lumbar region; M46.96 Unspecified inflammatory spondylopathy, lumbar region; M46.1 Sacroiliitis, not elsewhere classified; M79.18 Myalgia, other site; Z98.890 Other specified postprocedural states; Z79.891 Long term (current) use of opiate analgesic; Z79.890 Hormone replacement therapy; Z79.82 Long term (current) use of aspirin; Z79.899 Other long term (current) drug therapy; Z51.81 Encounter for therapeutic drug level monitoring
CPT/HCPCS: 80307; G0482; G0463; 99211

== ENCOUNTER 2019-10-26 06:41 | Day surgery (SDC) | payer OTHER ==
[2019-10-24 09:20] VITALS: BMI 32.8
[~2019-10-26 06:41] MED LIST changes: +BUPIVACAINE (PF) 0.5% 30 ML VIAL ONE; -LACTATED RINGERS 1,000 ML IV SCH; +LIDOCAINE 1% INJ 10MG/ML (20 ML MDV) ONE; +MIDAZOLAM 2 MG/2 ML VIAL ONE; +TRIAMCINOLONE ACETONIDE 40 MG/ML 1 ML VIAL ONE; +fentaNYL (PF) 50 MCG/ML 2 ML AMP ONE
[2019-10-26] MEDS ORDERED: LACTATED RINGERS 1,000 ML IV SCH (07:00)
[2019-10-26 07:09] VITALS: TEMP 98.2
[2019-10-26] MEDS ORDERED: ONDANSETRON 4 MG/2 ML VIAL IVP ONE (07:24)
[2019-10-26] MEDS ORDERED: IV FLUID CONTINUATION 1,000 ML IV ONE ×2 (08:05)
[2019-10-26] MEDS ORDERED: KETOROLAC 30 MG/ML 1 ML VIAL IVP STA (08:11)
[2019-10-26] MEDS ORDERED: KETOROLAC 30 MG/ML 1 ML VIAL IVP ONE (08:17)
[2019-10-26 08:23] VITALS: BP 119/79; PULSE 63; RESP 18
--- NOTE | 2019-10-26 09:07 | P.PCN ---
Date of Procedure: 10/26/19 Description of Procedure: Description of Procedure: PREOPERATIVE DIAGNOSIS: Lumbar spondylosis without myelopathy, obesity POSTOPERATIVE DIAGNOSIS: Lumbar spondylosis without myelopathy, obesity PROCEDURES : Right Radiofrequency thermocoagulation L3-L4, L4-L5, and L5-S1 medial branch, with fluoroscopic guidance ANESTHESIA: IV moderate conscious sedation with versed 2 mg , fentanyl 150 mcg and local infiltration with lidocaine 1% EBL: Minimal PROCEDURE INDICATION: The patient with low back pain secondary to lumbar facet arthropathy who had more than 50% relief with previous lumbar radio frequency ablation.. PROCEDURE DESCRIPTION / TECHNIQUE: The patient was seen and identified in the preoperative area. Risks, benefits, complications, including but not limited to risk of infection ,bleeding , allergic reactions to the medications and no complete pain relief , and alternatives were discussed with the patient, the patient agreed to proceed with the procedure and signed the consent. IV was started. Vital signs remained stable throughout the procedure. Patient was taken to the OR and time out was completed. The patient was placed in the prone position on the procedure table. The lumber area was prepped and draped in the usual sterile fashion. . Vital signs were closely monitored during the procedure .IV sedation was used during the procedure to decrease patients anxiety. The target points were identified as follows: For the L5-S1 level which corresponds to the dorsal ramus of L5 the target point was at the superior medial aspect of the sacral ala on the Rtside of the spine on the AP view of fluoroscopy and for the L2, L3, and L4 medial branches the target points were at the connection between the transverse process and the superior articular process of L3, L4, and L5 vertebra respectively on the Rt oblique view of fluoroscopy. skin was marked, and localized with 1% lidocaineat these points. Subsequently, an 18 -qf radiofrequency needles with a 10-mm curved active tips were advanced guided by fluoroscopy to each of the target points mentioned above in a superior medial direction to get the active tips as parallel as possible to the medial branches tracks. AP, oblique, and lateral views of fluoroscopy were used to verify needle tips position. Each level then underwent motor testing at 2.5 Hz and 0 to 3 volt with local, multifidus muscle stimulation, but no radicular symptoms down the legs. Thereafter radiofrequency thermocoagulation at 80 degrees celsius for 90 seconds after injecting 1 ml of PF ropivacaine 0.5%(3 mls) with 40 mg of Kenalog. A second burn was completed after needle was r emoved 1 mm and rotated 180. At the end of the procedure, the skin was cleansed and bandages were applied. COMPLICATIONS: No acute complications. DISPOSITION / PLANS: The patient was placed in a supine position and transferred to the recovery area in a stable condition for observation and was discharged from the recovery room after meeting discharge criteria. Home discharge instructions given to the patient by the staff. The patient was reexamined prior to discharge. Patient will be scheduled for left radio frequency ablation L3-L4, L4-L5, L5-S1.
--- NOTE | 2019-10-26 10:07 | FL ---
Fluoroscopy HISTORY: Pain 18 seconds fluoroscopy time supplied to the referring clinician. 3 intraoperative C-arm images docum ent the procedure. See dictated report from anesthesia.
== END 2019-10-26 09:00 | disposition home or self-care (01) ==
LOC: ORPAIN 06:41
PROVIDERS: ATTEND Anesthesiology
DX: G89.29 Other chronic pain (principal); M47.816 Spondylosis without myelopathy or radiculopathy, lumbar region; E66.9 Obesity, unspecified; Z68.33 Body mass index [BMI] 33.0-33.9, adult; M46.1 Sacroiliitis, not elsewhere classified; M79.18 Myalgia, other site; Z79.891 Long term (current) use of opiate analgesic; Z79.899 Other long term (current) drug therapy
CPT/HCPCS: 64635; 64636 ×2; J2250; J3301; J2405; J2001; J3010; J1885; 99152

== ENCOUNTER → 2019-10-31 | Outpatient (CLI) | payer OTHER ==
[2019-10-31 12:46] VITALS: BP 137/86; PULSE 76; RESP 18
--- NOTE | 2019-11-02 12:16 | P.PAINPG ---
Subjective Progress Note Date: 10/31/19 This is a follow-up visit for this 39 y/o patient with a history of severe and chronic low back pain secondary to , lumbar spondylosis with facet arthropathy, and bilateral sacroiliitis. His pain has been managed by combination of interventional pain procedures and medications. We have recently done radiofrequency ablation of the right side medial branch lumbar area on 10/26/2019, he is scheduled to undergo left-sided radiofrequency ablation of the lumbar area on 11/10/2019. Patients currently on oxycodone 5 mg once or twice a day- this he uses sparingly, Zanaflex 8 mg twice a day. His primary care physician has recently started Lyrica, 100 mg daily, he reports good benefit from this. His primary care would like us to take over prescribing this for him. Patient denies excessive drowsiness or sleepiness, denies suicidal ideation, and reports that the current pain medication is helping to control the pain ,and improve activity of daily living , he does endorse mild constipation Patient denies any motor or sensory deficit , patient denies any fever or night sweats, denies any change in the bowel movements or urination Review of systems is negative for chest pain, shortness of breath, new onset weakness, numbness/tingling, abdominal pain, malaise, fever, night sweats, chills, homicidal or suicidal ideation, or bowel or bladder incontinence. Physical Examinations : Physical exam: Vitals: Reviewed in EMR GENERAL: Well appearing, in no acute distress PSYCH: Mood and affect is appropriate. Awake, alert, and oriented SKIN: Skin color, texture, turgor normal, no rashes or lesions HEENT: Normocephalic, atraumatic. EOM intact CV: No pedal edema RESP: Respirations are unlabored, no audible wheezing GI: Abdomen non-distended MUSCULOSKELETAL: Bilateral lower extremity strength is normal and symmetric. No atrophy or tone abnormalities are noted. Lumbar spine: tenderness to palpation over the lumbar spine and paraspinous muscles. positive for pain with facet loading and back extension/rotation bilaterally. Extremities: Peripheral joint ROM is full and pain free without obvious instability or laxity in all four extremities. No edema or skin discolorations noted. NEUR: Bilateral lower extremity coordination and muscle stretch reflexes are physiologic and symmetric. Negative clonus bilaterally. No loss of sensation is noted. Assessment and plan = Chronic low back pain secondary to lumbar spondylosis with facet arthropathy without myelopathy , bilateral sacroiliitis, myofascial pain syndrome thoracic area Patient had good benefit following bilateral SI joint radiofrequency ablation and right sided lumbar radiofrequency ablation. He is scheduled to undergo left sided lumbar radiofrequency ablation at L3, L4, L5 later this month. chronic and current use of high-risk medication (Opioids). The patient was counseled about risk of opioid use, patient's verbalized understanding that the lack of compliance will result in failure to renew narco tic prescription and possible discharge from the clinic we discussed diagnoses, prognosis, and treatment options including but not limited to physical therapy, surgical interventions, interventional therapies and medication management including narcotics and adjuvant medication were discussed with the patient and all the questions answered MAPS reviewed and it was appropriate, UDS done at last visit was negative for medications, however patient reports that he was not taking any medications for 2 days prior to urine drug screen. Also, 2 days prior to last drug screen he underwent kidney stone removal under general anesthesia. We will repeat the urine drug screen today. We had a lengthy discussion regarding use of chronic opioids and on review of his maps report, he uses oxycodone sparingly. Prescription refill for Zanaflex 8 mg 12 hours dispense 60 with 2 refills, a prescription for oxycodone 5 mg- 30 tablets with no refills, we will also take over Lyrica prescribing from his primary care physician- prescription for 100 mg daily at bedtime with 1 refill was provided today. The patient was encouraged to take scheduled Tylenol and ibuprofen. The patient was counseled on the importance of weight loss and continued exercise, he was given an exercise handout for lumbar stretching and strength ening exercises as well as core exercises. follow-up: For above-mentioned procedure and in 8 weeks for medication refill Objective - Vital Signs Vital signs: Vital Signs Temp Pulse 76 10/31/19 12:25 Resp 18 10/31/19 12:25 BP 137/86 10/31/19 12:25 Pulse Ox 97 10/31/19 12:25 Intake & Output 10/30/19 10/31/19 10/31/19 18:59 06:59 18:59 Weight 116.12 kg PQRS Measure Charge Sheet Measure #130: Documentation of Current Meds in Medical Chart: Patient's medications documented in chart Measure #226: Tobacco Use: Screen & Cessation Intervention: Pt not a tobacco user Measure #111: Pneumonia Vaccination: Pneumococcal vaccine NOT administered or previously given Measure #47: Advance Care Plan: Advance care planning discussed & documented, pt chose/unable to give Measure #412: Opioid Treatment Agreement: Documented signed opioid trtmnt agreemnt min once during opioid trtmnt Measure #408: Opioid Therapy Follow-up Evaluation: Patient had f/u eval minimum every 3 months during opioid therapy Measure #317: Preventitive Care & Scrn High Bld Press & F/U: Normal blood pressure, f/u not required Measure #128: Body Mass Index (BMI) Screening & Follow-up: BMI documented ABOVE normal parameters - f/u documented Measure #131: Pain Assessment & Follow-up: Pain positive & plan documented, Follow-up scheduled Measure #431: Unhealthy Alcohol Use Preventative Care & Scrn: Patient not identified as an unhealthy alcohol user PQRS Narrative: Smoking Status Never smoker Narcotic Agreement Date Signed 02/17/19 Blood Pressure 137/86 Pain Intensity [Lower Back] 6 Scale Used Numeric (1 - 10) Hx Alcohol Use (MH) No Home Medications: Ambulatory Orders Levothyroxine Sodium [Synthroid] 50 mcg PO DAILY 03/30/14 tiZANidine HCL [Zanaflex] 8 mg PO TID PRN 01/13/19 Lisinopril [Zestril] 10 mg PO BID 01/26/19 Testosterone Cypionate [Depo-Testosterone] 130 mg IM Q72H 01/26/19 Aspirin EC [Ecotrin Low Dose] 81 mg PO DAILY #30 tablet. 01/27/19 Acetaminophen Tab [Tylenol] 650 mg PO Q6H PRN 04/29/19 amLODIPine [Norvasc] 5 mg PO DAILY 04/29/19 oxyCODONE HCL [Roxicodone] 10 mg PO TID PRN 06/05/19 Ondansetron Odt [Zofran Odt] 4 mg PO Q8HR PRN #10 tab 09/19/19 Pregabalin [Lyrica] 100 mg PO DAILY 09/22/19 Controlled Substance Measures - Controlled Substance Measures Is patient prescribed a controlled substance at discharge?: Yes When asked, does pt state using other controlled substances?: No If prescribed controlled substance>3 days was MAPS reviewed?: Yes If Rx opioid, was Start Talking consent form obtained?: Yes If opioid is for acute pain is fill amount 7 days or less?: No Was information provided regarding opioid addiction?: Yes
== END | disposition home or self-care (01) ==
LOC: PNWHC3 11:58
PROVIDERS: ATTEND Anesthesiology
DX: M54.5 Low back pain (principal)
CPT/HCPCS: 80307; G0482; G0463; 99211

== ENCOUNTER 2019-11-10 06:29 | Day surgery (SDC) | payer OTHER ==
[2019-11-09 09:01] VITALS: BMI 32.8
[~2019-11-10 06:29] MED LIST changes: +LACTATED RINGERS 1,000 ML IV SCH; -LIDOCAINE 1% INJ 10MG/ML (20 ML MDV) ONE; +LIDOCAINE 4% (PF) 5 ML AMP ONE; -TRIAMCINOLONE ACETONIDE 40 MG/ML 1 ML VIAL ONE
[2019-11-10 07:03] VITALS: TEMP 98
[2019-11-10] MEDS ORDERED: ONDANSETRON 4 MG/2 ML VIAL IVP ONE (07:15)
[2019-11-10] MEDS ORDERED: LIDOCAINE 1% 20 ML VIAL (10MG/ML) FOR IV START INTRADERMA ONE (07:15)
[2019-11-10] MEDS ORDERED: IV FLUID CONTINUATION 1,000 ML IV ONE (08:18)
--- NOTE | 2019-11-10 08:22 | P.PCN ---
Date of Procedure: 11/10/19 Procedure(s) Performed: PREOPERATIVE DIAGNOSIS: Lumbar Spondylosis, thoracic paraspinal myofascial pain syndrome POSTOPERATIVE DIAGNOSIS: Same PROCEDURES: Radiofrequency ablation of the L2, L3, L4, L5 medial branches with fluoroscopic guidance on the left side, thoracic paraspinal trigger point injections SURGEON: Ruben Merino MD. ANESTHESIA: Lidocaine 1% 5 mL, Moderate sedation with intravenous Versed and fentanyl, sedation time 35 minutes EBL: Minimal Fluoroscopy was used for the procedure and images were saved in the radiology portion of the chart. PROCEDURE INDICATION: The patient with low back pain secondary to lumbar facet arthropathy who had more than 50% relief of pain with previous diagnostic lumbar medial branch block X2. Patient also has thoracic myofascial pain and palpable trigger points in the thoracic paraspinal musculature. PROCEDURE DESCRIPTION / TECHNIQUE: The patient was seen and identified in the preoperative area. Risks, benefits, complications, including but not limited to risk of infection ,bleeding , allergic reactions to the medications and incomplete pain relief , and alternatives were discussed with the patient, the patient agreed to proceed with the procedure and signed the consent. IV was started. The operative site was marked. Patient was taken to the OR and time out was completed. The patient was placed in the prone position on the procedure table. The lumbar area was prepped and draped in the usual sterile fashion. . Vital signs were closely monitored during the procedure .IV sedation was used during the procedure to decrease patients anxiety. Using AP and then oblique fluoroscopy, the "eye of the John dog" corresponding to the connection between the superior and transverse articular processes of the L3, L4 and L5 as well as the sacral ala were identified, marked, and localized with 1% lidocaine. Subsequently, an 18 guage 150 mm radiofrequency cannula with a 10-mm active tip was advanced guided by fluoroscopy to the identified target at each site. Needle positioning was confirmed on AP, oblique and lateral fluoroscopy. Motor testing at 2.5 Hz was done with paraspinal muscle stimulation only, and no radicular symptoms down the legs. Then 1 mL of 4% lidocaine was injected in each site. Radiofrequency thermocoagulation at 80 degrees celsius for 90 seconds was then performed. [place] were removed. Sterile dressings were applied. Then I turned my attention to thoracic trigger points, the thoracic region was sterilely prepped in the usual fashion with ChloraPrep. 16 trigger points were identified via palpation of the indicated muscles and marked sterilely. Each trigger point was injected with a 25-gauge half inch needle, with 1-1.5 mL of solution consisting of ropivacaine 0.5%. The patient's vital signs were stable afterwards and the procedure was tolerated well. Patient was discharged home wi th follow-up instructions. COMPLICATIONS: No acute complications. DISPOSITION / PLANS: The patient was placed in a supine position and transferred to the recovery area in a stable condition for observation and was discharged from the recovery room after meeting discharge criteria. Home discharge instructions given to the patient by the staff. The patient will follow up in clinic in 4 weeks.
[2019-11-10 08:36] VITALS: BP 100/62; PULSE 88; RESP 14
--- NOTE | 2019-11-10 09:18 | FL ---
Fluoroscopy HISTORY: Pain 20 seconds fluoroscopy time supplied to the referring clinician. 12 intraoperative C-arm images docu ment the procedure. See dictated report from anesthesia.
== END 2019-11-10 08:47 ==
LOC: ORPAIN 06:29
PROVIDERS: ATTEND Anesthesiology
DX: G89.29 Other chronic pain (principal); M47.816 Spondylosis without myelopathy or radiculopathy, lumbar region; M79.18 Myalgia, other site; M46.1 Sacroiliitis, not elsewhere classified; K59.00 Constipation, unspecified; Z79.891 Long term (current) use of opiate analgesic; Z79.899 Other long term (current) drug therapy; Z79.890 Hormone replacement therapy; Z79.82 Long term (current) use of aspirin
CPT/HCPCS: 20553; 64635; 64636; J2001; J2250; J2405; J3010; 99152; 99153

== ENCOUNTER → 2020-03-07 | Outpatient (CLI) | payer OTHER ==
--- NOTE | 2020-03-07 11:30 | P.PAINPG ---
Subjective Progress Note Date: 03/07/20 THIS ENCOUNTER WAS PERFORMED A TELEMEDICINE VISIT VIA SECURE TWO-WAY VIDEO AND AUDIO TO MINIMIZE RISK AND TRANSMISSION OF COVID-19. This is a follow-up visit for this 40 y/o patient with a history of severe and chronic low back pain secondary to , lumbar spondylosis with facet arthropathy, and bilateral sacroiliitis. His pain has been managed by combination of interventional pain procedures and medications. We have done radiofrequency ablation of the lumbar area on 10/26/2019- right side, 11/10/2019- left side. he has also undergone SI joint radio frequency ablation with excellent benefit, lasting 6 months. today, patient reports worsening pain in right low back radiating to right posterior thigh up to mid calf. This is associated with numbness and tingling in right lower extremity. He denies weakness. This pain is unchanged from prior, and was helped with SI joint radiofrequency ablation, he would like to undergo this procedure again.pain is rated as 5-7/10, described as sharp, stabbing. He describes multiple episodes of cramps throughout the day. Pain is worse with sitting, bending and better with heat, medications. 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 Patients currently on Zanaflex 8 mg twice a day, his primary increased Lyrica, 100 mg from once to twice daily, he reports good benefit from this. he also was given a prescription for a seven-day supply of oxycodone from his primary care physician.patient states that he was unable to reach the clinic, hence primary care physician prescribed these medications. he does report drowsiness associated with Zanaflex, he only takes this at night. Patient denies excessive drowsiness or sleepiness, denies suicidal ideation, and reports that the current pain medication is helping to control the pain ,and improve activity of daily living Patient denies any new motor or sensory deficit , patient denies any fever or night sweats, denies any change in the bowel movements or urination Review of systems is negative for chest pain, shortness of breath, new onset weakness, numbness/tingling, abdominal pain, malaise, fever, night sweats, chills, homicidal or suicidal ideation, or bowel or bladder incontinence. Physical exam: Constitutional: Healthy appearing, well developed, alert, in no acute distress Psychiatric: Judgement and insight intact, alert and oriented Mood and Affect: mood normal, affect appropriate Head and Face: Inspection: normocephalic atraumatic, extraocular movement intact Respiratory: Breathing non-labored nondyspneic Skin: Head and Neck: skin with no lesions or rash Gait: able to ambulate without assistance Neurologic: numb sensation described in right lower extremity Assessment and plan = Chronic low back pain secondary to lumbar spondylosis with facet arthropathy without myelopathy , bilateral sacroiliitis, myofascial pain syndrome thoracic area Patient had good benefit following bilateral SI joint radiofrequency ablation and bilateral lumbar radiofrequency ablation. chronic and current use of high-risk medication - Lyrica The patient was counseled about risk of controlled substance use, patient's verbalized understanding that the lack of compliance will result in failure to renew narcotic prescription and possible discharge from the clinic MAPS reviewed and it was appropriate Prescription refill for Zanaflex 8 mg 12 hours dispense 60 with 2 refills, Lyrica 100 mg twice daily with 1 refill was provided today. The patient was encouraged to take [id number] magnesium Glycinate 400 mg for muscle cramps. He also takes more mobic when necessary- I advised him of association with Covid 19 and counseled him to reduce consumption of NSAIDs procedures: We will schedule right sided SI radiofrequency ablation, as patient had excellent benefit from this in the past. follow-up: for above-mentioned procedure and in 8 weeks for medication refill PQRS Measure Charge Sheet PQRS Narrative: Smoking Status Never smoker Narcotic Agreement Date Signed 02/17/19 Hx Alcohol Use (MH) No Home Medications: Ambulatory Orders Levothyroxine Sodium [Synthroid] 50 mcg PO DAILY 03/30/14 tiZANidine HCL [Zanaflex] 8 mg PO TID PRN 01/13/19 Lisinopril [Zestril] 10 mg PO BID 01/26/19 Testosterone Cypionate [Depo-Testosterone] 130 mg IM Q72H 01/26/19 Acetaminophen Tab [Tylenol] 650 mg PO Q6H PRN 04/29/19 amLODIPine [Norvasc] 5 mg PO DAILY 04/29/19 oxyCODONE HCL [Roxicodone] 10 mg PO TID PRN 06/05/19 Ondansetron Odt [Zofran Odt] 4 mg PO Q8HR PRN #10 tab 09/19/19 Pregabalin [Lyrica] 100 mg PO DAILY 09/22/19 Meloxicam [Mobic] 7.5 mg PO TID 12/20/19 Controlled Substance Measures - Controlled Substance Measures Is patient prescribed a controlled substance at discharge?: Yes When asked, does pt state using other controlled substances?: No If prescribed controlled substance>3 days was MAPS reviewed?: Yes If Rx opioid, was Start Talking consent form obtained?: Yes If opioid is for acute pain is fill amount 7 days or less?: No Was information provided regarding opioid addiction?: Yes
== END | disposition home or self-care (01) ==
LOC: PNWHC3 07:18
PROVIDERS: ATTEND Anesthesiology
DX: Z53.9 Procedure and treatment not carried out, unspecified reason (principal)

== ENCOUNTER → 2020-03-28 | Outpatient (CLI) | payer OTHER ==
[2020-03-28 08:06] VITALS: BP 142/79; PULSE 57; RESP 18; TEMP 98.6
--- NOTE | 2020-03-28 08:27 | P.PAINPG ---
Subjective Progress Note Date: 03/28/20 This is a follow-up visit for this 40 y/o patient with a history of severe and chronic low back pain secondary to , lumbar spondylosis with facet arthropathy, and bilateral sacroiliitis. His pain has been managed by combination of interventional pain procedures and medications. We have done radiofrequency ablation of the lumbar area on 10/26/2019- right side, 11/10/2019- left side. he has also undergone SI joint radio frequency ablation with excellent benefit, lasting 6 months. today, patient reports worsening pain in right low back radiating to right posterior thigh up to mid calf. This is associated with numbness and tingling in right lower extremity. He denies weakness. This pain is unchanged from prior, and was helped with SI joint radiofrequency ablation, he would like to undergo this procedure again. Unfortunately, insurance denied authorization. We discussed doing bilateral SI joint injections with steroid. 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 Patients currently on Zanaflex 8 mg twice a day, Lyrica, 100 mg from twice daily, he reports good benefit from this, this was recently increased from once to twice a day. He would like to increase this further. he does report drowsiness associated with Zanaflex, he only takes this at night. Patient denies excessive drowsiness or sleepiness, denies suicidal ideation, and reports that the current pain medication is helping to control the pain ,and improve activity of daily living Patient denies any new motor or sensory deficit , patient denies any fever or night sweats, denies any change in the bowel movements or urination Review of systems is negative for chest pain, shortness of breath, new onset weakness, numbness/tingling, abdominal pain, malaise, fever, night sweats, chills, homicidal or suicidal ideation, or bowel or bladder incontinence. Physical exam: Vitals: Reviewed in EMR GENERAL: Well appearing, in no acute distress PSYCH: Mood and affect is appropriate. Awake, alert, and oriented SKIN: Skin color, texture, turgor normal, no rashes or lesions HEENT: Normocephalic, atraumatic. EOM intact CV: No pedal edema RESP: Respirations are unlabored, no audible wheezing GI: Abdomen non-distended MUSCULOSKELETAL: Bilateral lower extremity strength is normal and symmetric. No atrophy or tone abnormalities are noted. Lumbar spine: Straight leg raising in the sitting position is negative for radicular pain. Tenderness to palpation over the lumbar spine and paraspinous muscles bilaterally, right greater than left. Buttocks: Tenderness to palpation over the bilateral PSIS, sacral thrust positive bilaterally, Yair test positive bilaterally, Gaenslen's test positive bilaterally Extremities: Peripheral joint ROM is full and pain free without obvious instability or laxity in all four extremities. No edema or skin discolorations noted. Gait: Gait is normal NEUR: Bilateral upper and lower extremity coordination and muscle stretch reflexes are physiologic and symmetric. Negative clonus bilaterally. No loss of sensation is noted. Assessment and plan = Chronic low back pain secondary to lumbar spondylosis with facet arthropathy without myelopathy , bilateral sacroiliitis, myofascial pain syndrome thoracic area Patient had good benefit following bilateral SI joint radiofrequency ablation and bilateral lumbar radiofrequency ablation. chronic and current use of high-risk medication - Lyrica The patient was counseled about risk of controlled substance use, patient's verbalized understanding that the lack of compliance will result in failure to renew narcotic prescription and possible discharge from the clinic MAPS reviewed and it was appropriate Prescription refill for Zanaflex 8 mg 12 hours dispense 60 with 2 refills, Lyrica was increased from 100 mg twice a day to 150 mg twice a day. I sent this prescription to his pharmacy with one refill. The patient was encouraged to take [id number] magnesium Glycinate 400 mg for muscle cramps. procedures: We will mental obtain insurance authorization for right sided SI radiofrequency ablation, as patient had excellent benefit from this in the past. If we are unable to obtain insurance authorization, we will perform bilateral SI joint injections at next available follow-up: for above-mentioned procedure and in 8 weeks for medication refill PQRS Measure Charge Sheet Measure #130: Documentation of Current Meds in Medical Chart: Patient's medications documented in chart Measure #226: Tobacco Use: Screen & Cessation Intervention: Pt not a tobacco user Measure #111: Pneumonia Vaccination: Pneumococcal vaccine NOT administered or previously given Measure #47: Advance Care Plan: Advance care planning discussed & documented, pt chose/unable to give Measure #412: Opioid Treatment Agreement: Documented signed opioid trtmnt agreemnt min once during opioid trtmnt Measure #408: Opioid Therapy Follow-up Evaluation: Patient had f/u eval minimum every 3 months during opioid therapy Measure #317: Preventitive Care & Scrn High Bld Press & F/U: Pre-hypertensive or hypertensive BP documented, pt will f/u with PCP Measure #128: Body Mass Index (BMI) Screening & Follow-up: BMI documented ABOVE normal parameters - f/u documented Measure #131: Pain Assessment & Follow-up: Pain positive & plan documented, Follow-up scheduled Measure #431: Unhealthy Alcohol Use Preventative Care & Scrn: Patient not identified as an unhealthy alcohol user PQRS Narrative: Smoking Status Never smoker Narcotic Agreement Date Signed 02/17/19 Pain Intensity [Lower Back] 6 Scale Used Numeric (1 - 10) Hx Alcohol Use (MH) No Home Medications: Ambulatory Orders Levothyroxine Sodium [Synthroid] 50 mcg PO DAILY 03/30/14 Lisinopril [Zestril] 10 mg PO BID 01/26/19 Testosterone Cypionate [Depo-Testosterone] 130 mg IM Q72H 01/26/19 Acetaminophen Tab [Tylenol] 650 mg PO Q6H PRN 04/29/19 amLODIPine [Norvasc] 5 mg PO DAILY 04/29/19 oxyCODONE HCL [Roxicodone] 10 mg PO TID PRN 06/05/19 Ondansetron Odt [Zofran Odt] 4 mg PO Q8HR PRN #10 tab 09/19/19 Meloxicam [Mobic] 7.5 mg PO TID 12/20/19 tiZANidine HCL [Zanaflex] 8 mg PO TID PRN #90 tab 03/07/20 Pregabalin 150 mg PO BID 30 Days #60 cap 03/28/20 Controlled Substance Measures - Controlled Substance Measures Is patient prescribed a controlled substance at discharge?: Yes When asked, does pt state using other controlled substances?: No If prescribed controlled substance>3 days was MAPS reviewed?: Yes If Rx opioid, was Start Talking consent form obtained?: Yes If opioid is for acute pain is fill amount 7 days or less?: No Was information provided regarding opioid addiction?: Yes
== END | disposition home or self-care (01) ==
LOC: PNWHC3 07:43
PROVIDERS: ATTEND Anesthesiology
DX: G89.29 Other chronic pain (principal); M47.816 Spondylosis without myelopathy or radiculopathy, lumbar region; M46.96 Unspecified inflammatory spondylopathy, lumbar region; M46.1 Sacroiliitis, not elsewhere classified; M79.10 Myalgia, unspecified site; Z98.890 Other specified postprocedural states; Z79.1 Long term (current) use of non-steroidal anti-inflammatories (NSAID); Z79.899 Other long term (current) drug therapy
CPT/HCPCS: 99211

== ENCOUNTER 2020-04-05 06:58 | Day surgery (SDC) | payer OTHER ==
[2020-04-05] MEDS ORDERED: LACTATED RINGERS 1,000 ML IV SCH (07:10)
[2020-04-05 07:18] VITALS: RESP 16; TEMP 96.2
[2020-04-05] MEDS ORDERED: ONDANSETRON 4 MG/2 ML VIAL ONE (07:26)
[2020-04-05] MEDS ORDERED: LIDOCAINE 1% (10MG/ML) FOR IV START INTRADERMA ONE (07:28)
[2020-04-05] MEDS ORDERED: fentaNYL (PF) 50 MCG/ML 2 ML AMP ONE (07:59)
[2020-04-05] MEDS ORDERED: ROPIVACAINE 5MG/ML 20ML VIAL ONE (07:59)
[2020-04-05] MEDS ORDERED: MIDAZOLAM 2 MG/2 ML VIAL ONE (07:59)
[2020-04-05] MEDS ORDERED: methylPREDNISolone ACETATE 40 MG/ML 1 ML VIAL ONE (07:59)
--- NOTE | 2020-04-05 08:16 | P.PCN ---
Date of Procedure: 04/05/20 Procedure(s) Performed: Procedure= bilateral sacroiliac joints steroid injection under fluoroscopy guidance (fluoroscopy image stored on file in the radiology Department ) Preoperative diagnosis= 1-sacroiliitis 2-lumbosacral spondylosis with lumbar facet arthropathy Postoperative diagnosis=Same as preop Diagnosis . Complication = none Condition= stable Anesthesia= moderate sedation with intravenous Versed 2 mg , and fentanyl 100 micrograms . Indication for the procedure= patient complaining of low back pain , examination was positive for severe tenderness over the sacroiliac joints bilaterally and patient diagnosed with sacroiliitis, for this reason he was good candidate for sacroiliac joint steroid injection. Description of the procedure= procedure risk and benefits discussed with the patient, including but not limited, risk of infection and bleeding, and ALLERGIC reaction to the medication and not complete pain relief and patient agreed with the preceding patient taken to the operating room, placed in prone position or standard monitors applied to the patient then after induction of anesthesia back prepped with chlorhexidine 3 times , Then under strict sterile technique, first I did the right sacroiliac joint the which was identified under fluoroscopy guidance been local infiltration of the skin and subcu interstitial with lidocaine 1% then 22-gauge Quincke Needle advanced slowly under fluoroscopy and placed in the right sacroiliac joint needle placement confirmed with AP and oblique and lateral view and after appropriate needle placement confirmed and after negative aspiration, or heme , then Ropivacaine 0.5% 4 mL, and 40 mg of Depo-Medrol mixed together and injected in the right sacroiliac joint after negative aspiration patient tolerated the procedure well without any complication. Then the left sacroiliac joint steroid injection done under strict sterile technique local infiltration of the skin and subcu interstitial at the location of the left sacroiliac joint then a 22-gauge Quincke Needle advanced slowly under fluoroscopy time placed in the left sacroiliac joint, needle placement confirmed with AP and oblique and lateral view then after appropriate needle placement confirmed and after negative aspiration 0.5% Marcaine 4 mL and 40 mg of Depo-Medrol injected in the left sacroiliac joint after negative aspiration patient tolerated the procedure well that any complications and she will follow up in clinic 3 weeks
[2020-04-05] MEDS ORDERED: IV FLUID CONTINUATION 500 ML IV ONE (08:20)
[2020-04-05 08:35] VITALS: BP 112/55; PULSE 57
--- NOTE | 2020-04-05 09:03 | FL ---
EXAMINATION TYPE: FL guided pain mgmt statistic DATE OF EXAM: 04/05/2020 HISTORY: Fluoroscopy time 8 seconds of fluoroscopy provided. IMPRESSION: 1. Fluoroscopy time.
== END 2020-04-05 08:51 | disposition home or self-care (01) ==
LOC: ORPAIN 06:58
PROVIDERS: ATTEND Specialist
DX: M46.1 Sacroiliitis, not elsewhere classified (principal); M47.897 Other spondylosis, lumbosacral region; Z88.8 Allergy status to other drugs, medicaments and biological substances; I10 Essential (primary) hypertension; K21.9 Gastro-esophageal reflux disease without esophagitis; E03.9 Hypothyroidism, unspecified
CPT/HCPCS: J2250; J1030; J2405; J3010; J2795; G0260

== ENCOUNTER → 2020-05-02 | Outpatient (CLI) | payer OTHER ==
[2020-05-02 08:24] VITALS: BP 118/79; PULSE 61; RESP 16
--- NOTE | 2020-05-02 08:31 | P.PAINPG ---
Subjective Progress Note Date: 05/02/20 This is a follow-up visit for this 40 y/o patient with a history of severe and chronic low back pain secondary to , lumbar spondylosis with facet arthropathy, and bilateral sacroiliitis. His pain has been managed by combination of interventional pain procedures and medications. He underwent bilateral SI joint injections on 04/05/2020. He returns today for follow-up. He reports good benefit from this procedure, and was doing very well, even playing basketball, up until 3 days ago. Then, with no inciting event, he reports worsening of left low back pain, radiating to lateral aspect of left thigh, up to mid calf. Pain is not associated with numbness, tingling, weakness. He has had this pain before, it has responded well to lumbar radiofrequency ablation. We have last done radiofrequency ablation of the lumbar area on 10/26/2019- right side, 11/10/2019- left side. He is inquiring as to whether he can have this procedure repeated. Pain today is rated as 8/10, described as shooting pain across the left back into left leg. Pain is worse with sitting, activity and better with Zanaflex. 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 Patients currently on Zanaflex 8 mg twice a day, Lyrica, 150 mg twice daily, he reports good benefit from this. Patient denies excessive drowsiness or sleepiness, denies suicidal ideation, and reports that the current pain medication is helping to control the pain ,and improve activity of daily living Patient denies any new motor or sensory deficit , patient denies any fever or night sweats, denies any change in the bowel movements or urination Review of systems is negative for chest pain, shortness of breath, new onset weakness, numbness/tingling, abdominal pain, malaise, fever, night sweats, chills, homicidal or suicidal ideation, or bowel or bladder incontinence. Physical exam: Vitals: Reviewed in EMR GENERAL: Well appearing, in no acute distress PSYCH: Mood and affect is appropriate. Awake, alert, and oriented SKIN: Skin color, texture, turgor normal, no rashes or lesions HEENT: Normocephalic, atraumatic. EOM intact CV: No pedal edema RESP: Respirations are unlabored, no audible wheezing GI: Abdomen non-distended MUSCULOSKELETAL: Bilateral lower extremity strength is normal and symmetric. No atrophy or tone abnormalities are noted. Lumbar spine: Straight leg raising in the sitting position is negative for radicular pain. Tenderness to palpation over the lumbar spine and paraspinous muscles on the left side. Facet loading is positive on the left side. Buttocks: No to palpation over the bilateral PSIS Extremities: Peripheral joint ROM is full and pain free without obvious instability or laxity in all four extremities. No edema or skin discolorations noted. NEUR: Bilateral lower extremity coordination and muscle stretch reflexes are physiologic and symmetric. Negative clonus bilaterally. No loss of sensation is noted. Assessment and plan = Chronic low back pain secondary to lumbar spondylosis with facet arthropathy without myelopathy , bilateral sacroiliitis, myofascial pain syndrome thoracic area Patient had excellent benefit from prior lumbar radiofrequency ablation, lasting approximately 6 months. He would like to have this procedure repeated. We will schedule him for left-sided lumbar radiofrequency ablation of L3, L4, L5 chronic and current use of high-risk medication - Lyrica MAPS reviewed and it was appropriate. Urine drug screen ordered today Prescription refill for Zanaflex 8 mg 12 hours dispense 60 with 2 refills, Mobic 7.5 mg twice a day when [id number] tablets with one refill. V ertigo was not refilled today as he has a pending prescription with pharmacy. follow-up: for above-mentioned procedure and in 8 weeks for medication refill PQRS Measure Charge Sheet Measure #130: Documentation of Current Meds in Medical Chart: Patient's medications documented in chart Measure #226: Tobacco Use: Screen & Cessation Intervention: Pt not a tobacco user Measure #111: Pneumonia Vaccination: Pneumococcal vaccine NOT administered or previously given Measure #47: Advance Care Plan: Advance care planning discussed & documented, pt chose/unable to give Measure #412: Opioid Treatment Agreement: Documented signed opioid trtmnt agreemnt min once during opioid trtmnt Measure #408: Opioid Therapy Follow-up Evaluation: Patient had f/u eval minimum every 3 months during opioid therapy Measure #317: Preventitive Care & Scrn High Bld Press & F/U: Blood pressure within normal limits Measure #128: Body Mass Index (BMI) Screening & Follow-up: BMI documented ABOVE normal parameters - f/u documented Measure #131: Pain Assessment & Follow-up: Pain positive & plan documented, Follow-up scheduled Measure #431: Unhealthy Alcohol Use Preventative Care & Scrn: Patient not identified as an unhealthy alcohol user PQRS Measure Charge Sheet PQRS Narrative: Smoking Status Never smoker Narcotic Agreement Date Signed 02/17/19 Hx Alcohol Use (MH) No Home Medications: Ambulatory Orders Levothyroxine Sodium [Synthroid] 50 mcg PO DAILY 03/30/14 Testosterone Cypionate [Depo-Testosterone] 130 mg IM Q72H 01/26/19 lisinopriL [Zestril] 10 mg PO BID 01/26/19 Acetaminophen Tab [Tylenol] 650 mg PO Q6H PRN 04/29/19 amLODIPine [Norvasc] 5 mg PO DAILY 04/29/19 oxyCODONE HCL [Roxicodone] 10 mg PO TID PRN 06/05/19 Ondansetron Odt [Zofran Odt] 4 mg PO Q8HR PRN #10 tab 09/19/19 Pregabalin 150 mg PO BID 30 Days #60 cap 03/28/20 Meloxicam [Mobic] 7.5 mg PO BID #60 tab 05/02/20 tiZANidine HCL [Zanaflex] 8 mg PO TID PRN #90 tab 05/02/20 Controlled Substance Measures - Controlled Substance Measures Is patient prescribed a controlled substance at discharge?: No
== END | disposition home or self-care (01) ==
LOC: PNWHC3 07:32
PROVIDERS: ATTEND Anesthesiology
DX: G89.29 Other chronic pain (principal); M47.816 Spondylosis without myelopathy or radiculopathy, lumbar region; M46.1 Sacroiliitis, not elsewhere classified; M79.18 Myalgia, other site; Z98.890 Other specified postprocedural states; Z79.1 Long term (current) use of non-steroidal anti-inflammatories (NSAID); Z79.899 Other long term (current) drug therapy
CPT/HCPCS: 99211

== ENCOUNTER 2020-05-18 16:27 | Emergency (ER) | payer OTHER ==
[2020-05-18 16:39] VITALS: TEMP 98.3
[2020-05-18] MEDS ORDERED: ONDANSETRON 4 MG/2 ML VIAL IVP STA (17:01)
[2020-05-18] MEDS ORDERED: MORPHINE SULFATE 4 MG/ML SYRINGE IV STA (17:01)
[2020-05-18] MEDS ORDERED: SODIUM CHLORIDE 0.9% 1,000 ML IV STA (17:01)
--- NOTE | 2020-05-18 17:01 | ED ---
Abdominal Pain HPI - General Chief Complaint: Abdominal Pain Stated Complaint: kidney stone Time Seen by Provider: 05/18/20 16:45 Source: patient, family Mode of arrival: wheelchair Limitations: no limitations - History of Present Illness Initial Comments: Patient is 40-year-old male with history of renal stones presenting to emergency prompt a chief complaint of flank pain. Patient reports this feels like his typical kidney stone pain. Patient reports it was sudden onset. Respiratory no. Patient reports she took [id number] analgesics with some improvement of symptoms but the pain continues to be sharp in nature and painful. Patient reports nausea. Patient states Toradol typically does not work for her. Patient states he sees a urologist, Dr. Benitez, but was not able to see him today. Denies any chest pain shortness of breath. Denies any obstructive urinary symptoms. Denies increased urgency frequency or dysuria. Does report darker urine. - Related Data Home Medications Medication Instructions Recorded Confirmed Levothyroxine Sodium [Synthroid] 50 mcg PO DAILY 03/30/14 05/16/20 Testosterone Cypionate 130 mg IM Q72H 01/26/19 05/16/20 [Depo-Testosterone] lisinopriL [Zestril] 10 mg PO BID 01/26/19 05/16/20 Acetaminophen Tab [Tylenol] 650 mg PO Q6H PRN 04/29/19 05/16/20 amLODIPine [Norvasc] 5 mg PO DAILY 04/29/19 05/16/20 oxyCODONE HCL [Roxicodone] 10 mg PO TID PRN 06/05/19 05/16/20 Previous Rx's Medication Instructions Recorded Ondansetron Odt [Zofran Odt] 4 mg PO Q8HR PRN #10 tab 09/19/19 Pregabalin 150 mg PO BID 30 Days #60 cap 03/28/20 Meloxicam [Mobic] 7.5 mg PO BID #60 tab 05/02/20 tiZANidine HCL [Zanaflex] 8 mg PO TID PRN #90 tab 05/02/20 Ondansetron Odt [Zofran Odt] 4 mg PO Q8HR PRN #10 tab 05/18/20 Allergies Allergy/AdvReac Type Severity Reaction Status Date / Time benzalkonium chloride Allergy Severe Swelling Verified 05/18/20 16:39 duloxetine HCl AdvReac Severe severe Verified 05/18/20 16:39 [From Cymbalta] headache gabapentin [From Neurontin] AdvReac HEADACHE Verified 05/18/20 16:39 Review of Systems ROS Statement: Those systems with pertinent positive or pertinent negative responses have been documented in the HPI. ROS Other: All systems not noted in ROS Statement are negative. Past Medical History Past Medical History: GERD/Reflux, Hypertension, Thyroid Disorder Additional Past Medical History / Comment(s): HX KIDNEY STONE, CHRONIC BACK PAIN, LOW THYROID, UMBILICAL HERNIA. History of Any Multi-Drug Resistant Organisms: None Reported Past Surgical History: Appendectomy, Cholecystectomy Additional Past Surgical History / Comment(s): PAIN PROCEDURES, VASECTOMY.; multiple kidney stone removals Past Anesthesia/Blood Transfusion Reactions: No Reported Reaction Additional Past Anesthesia/Blood Transfusion Reaction / Comment(s): States needs more sedation to put me asleep. Past Psychological History: No Psychological Hx Reported Smoking Status: Former smoker - Past Family History Mother History Unknown: Yes Family Medical History: Dementia Father Additional Family Medical History / Comment(s): SMOKER. General Exam Limitations: no limitations General appearance: alert, in no apparent distress Head exam: Present: atraumatic, normocephalic, normal inspection Eye exam: Present: normal appearance, PERRL, EOMI Pupils: Present: normal accommodation ENT exam: Present: normal exam, mucous membranes moist. Absent: normal oropharynx Neck exam: Present: normal inspection, full ROM. Absent: tenderness, meningismus Respiratory exam: Present: normal lung sounds bilaterally. Absent: respiratory distress, wheezes, rales Cardiovascular Exam: Present: regular rate, normal rhythm, normal heart sounds GI/Abdominal exam: Present: soft, tenderness (Right flank pain). Absent: distended, guarding Extremities exam: Present: normal inspection, full ROM. Absent: tenderness Back exam: Present: normal inspection, full ROM, CVA tenderness (R) Neurological exam: Present: alert, oriented X3 Psychiatric exam: Present: normal affect, normal mood Skin exam: Present: warm, dry, intact, normal color Course Vital Signs 05/18/20 05/18/20 16:35 18:51 Temperature 98.3 F 98.3 F Pulse Rate 64 65 Respiratory 16 18 Rate Blood Pressure 124/77 101/72 O2 Sat by Pulse 98 97 Oximetry Medical Decision Making - Medical Decision Making Patient is a 40-year-old male with history of recurrent renal stones presenting to emergency Department with a chief complaint of a kidney stone. Patient states this was sudden onset pain that started this morning in the right lower back region as well as some right flank pain. Exam patient does have right CVA tenderness. Patient states this feels exactly like his renal slow pain. CBC CMP is unremarkable. UA reveals no hematuria, RBCs, white blood cells or leukocyte esterase. Urine culture pending. Patient was given analgesia, fluids and antiemetics. Kidney ultrasound reveals no hydronephrosis of either kidney. I suspect the patient has passed a kidney stone. Patient states at times he has renal stones that do not appear any imaging but cannot be visualized unless a urologic procedures performed. Patient does have history of uric acid stones. On reevaluation, patient reports improvement in symptoms. Patient states she is going to see the urologist on Thursday. Return parameters were thoroughly discussed patient was under standing agreeable. Case discussed with physician. - Lab Data Result diagrams: 05/18/20 17:02 05/18/20 17:02 Lab Results 05/18/20 05/18/20 05/18/20 Range/Units 17:02 17:02 17:02 WBC 8.0 (3.8-10.6) k/uL RBC 5.83 (4.30-5.90) m/uL Hgb 17.1 (13.0-17.5) gm/dL Hct 53.5 H (39.0-53.0) % MCV 91.8 (80.0-100.0) fL MCH 29.3 (25.0-35.0) pg MCHC 31.9 (31.0-37.0) g/dL RDW 13.3 (11.5-15.5) % Plt Count 216 (150-450) k/uL Neutrophils % 59 % Lymphocytes % 25 % Monocytes % 8 % Eosinophils % 3 % Basophils % 1 % Neutrophils # 4.7 (1.3-7.7) k/uL Lymphocytes # 2.0 (1.0-4.8) k/uL Monocytes # 0.7 (0-1.0) k/uL Eosinophils # 0.3 (0-0.7) k/uL Basophils # 0.1 (0-0.2) k/uL Sodium 138 (137-145) mmol/L Potassium 3.7 (3.5-5.1) mmol/L Chloride 101 (98-107) mmol/L Carbon Dioxide 28 (22-30) mmol/L Anion Gap 9 mmol/L BUN 14 (9-20) mg/dL Creatinine 1.22 (0.66-1.25) mg/dL Est GFR (CKD-EPI)AfAm 84 (>60 ml/min/1.73 sqM) Est GFR (CKD-EPI)NonAf 73 (>60 ml/min/1.73 sqM) Glucose 102 H (74-99) mg/dL Calcium 9.2 (8.4-10.2) mg/dL Total Bilirubin 0.7 (0.2-1.3) mg/dL AST 24 (17-59) U/L ALT 23 (4-49) U/L Alkaline Phosphatase 47 (38-126) U/L Total Protein 6.8 (6.3-8.2) g/dL Albumin 4.3 (3.5-5.0) g/dL Urine Color Yellow Urine Appearance Clear (Clear) Urine pH 5.5 (5.0-8.0) Ur Specific [place] 1.022 (1.001-1.035) Urine Protein Negative (Negative) Urine Glucose (UA) Negative (Negative) Urine Ketones Trace H (Negative) Urine Blood Negative (Negative) Urine Nitrite Negative (Negative) Urine Bilirubin Negative (Negative) Urine Urobilinogen <2.0 (<2.0) mg/dL Ur Leukocyte Esterase Negative (Negative) Disposition Clinical Impression: Flank pain, Renal stone Disposition: HOME SELF-CARE Condition: Stable Instructions (If sedation given, give patient instructions): Kidney Stones (ED) Additional Instructions: Follow-up with urology. Return to emergency department if symptoms worsen. Prescriptions: Ondansetron Odt [Zofran Odt] 4 mg PO Q8HR PRN #10 tab PRN Reason: Nausea Is patient prescribed a controlled substance at d/c from ED?: No Referrals: Ryan Loving Jr, DO [Primary Care Provider] - 1-2 days Time of Disposition: 18:57
[2020-05-18 17:13] LABS: Basophils # (A) 0.1 k/uL (0-0.2); Basophils % (A) 1 %; Eosinophils # (A) 0.3 k/uL (0-0.7); Eosinophils % (A) 3 %; HCT 53.5 % (39.0-53.0); HGB 17.1 gm/dL (13.0-17.5); Lymphocytes % (A) 25 %; MCH 29.3 pg (25.0-35.0); MCHC 31.9 g/dL (31.0-37.0); MCV 91.8 fL (80.0-100.0); Mean Platelet Volume 9.4; Monocytes # (A) 0.7 k/uL (0-1.0); Monocytes % (A) 8 %; Neutrophils # (A) 4.7 k/uL (1.3-7.7); Neutrophils % (A) 59 %; Platelet Count 216 k/uL (150-450); RBC 5.83 m/uL (4.30-5.90); RDW 13.3 % (11.5-15.5)
[2020-05-18 17:18] LABS: Appearance,Urine Clear (Clear); Bilirubin,Urine Negative (Negative); Blood,Urine Negative (Negative); Color,Urine Yellow; Glucose,Urine (UA) Negative (Negative); Ketones,Urine Trace (Negative); Leukocyte Esterase,Urine Negative (Negative); Nitrite,Urine Negative (Negative); PH, Urine 5.5 (5.0-8.0); Protein,Urine Negative (Negative); Specific Gravity,Urine 1.022 (1.001-1.035); Urobilinogen,Urine <2.0 mg/dL (<2.0)
[2020-05-18 17:25] LABS: Albumin 4.3 g/dL (3.5-5.0); Calcium 9.2 mg/dL (8.4-10.2); Potassium 3.7 mmol/L (3.5-5.1); Total Bilirubin 0.7 mg/dL (0.2-1.3); Total Protein 6.8 g/dL (6.3-8.2)
[2020-05-18] MEDS ORDERED: HYDROmorphone 1 MG/ML 1 ML SYRINGE IVP STA (17:58)
[2020-05-18] MEDS ORDERED: HYDROmorphone 0.5 MG/0.5 ML SYRINGE IVP STA (17:58)
--- NOTE | 2020-05-18 18:07 | US ---
EXAMINATION TYPE: US kidneys/renal and bladder DATE OF EXAM: 05/18/2020 COMPARISON: NONE CLINICAL HISTORY: hx stones, right flank pain. h/o renal stones EXAM MEASUREMENTS: Right Kidney: 11.7 x 5.8 x 5.8 cm Left Kidney: 13.1 x 6.4 x 6.5 cm Right Kidney: No hydronephrosis or masses seen, tiny non shadowing echogenic foci may represent smqll stones verus normal etiology Left Kidney: No hydronephrosis or masses seen Bladder: not fully distended There is no evidence for hydronephrosis at this point in time. No nephrolithiasis is seen. No makenzie s are identified. The urinary bladder is anechoic. Bilateral ureteral jets are seen. IMPRESSION: Negative bilateral renal sonogram. No evidence of renal mass or obstruction. Urinary bladder unremark able.
[2020-05-18] MEDS ORDERED: diphenhydrAMINE 50 MG/ML 1 ML VIAL IVP STA (18:51)
[2020-05-18] MEDS ORDERED: METOCLOPRAMIDE 5 MG/ML 2 ML VIAL IVP STA (18:51)
[2020-05-18 18:52] VITALS: BP 101/72; PULSE 65; RESP 18
== END 2020-05-18 19:07 | disposition home or self-care (01) ==
LOC: EC 16:27
DX: N20.0 Calculus of kidney (principal); I10 Essential (primary) hypertension; G89.29 Other chronic pain; M54.9 Dorsalgia, unspecified; E03.9 Hypothyroidism, unspecified; Z79.890 Hormone replacement therapy; Z79.899 Other long term (current) drug therapy; Z88.8 Allergy status to other drugs, medicaments and biological substances; Z87.19 Personal history of other diseases of the digestive system; Z90.89 Acquired absence of other organs; Z98.890 Other specified postprocedural states; Z90.49 Acquired absence of other specified parts of digestive tract; Z87.891 Personal history of nicotine dependence
CPT/HCPCS: 36415; 80053; 85025; 81003; 76770; 99284; 96374; 96375 ×4; 96361; J2270; J1200; J2765; J2405; J1170

== ENCOUNTER 2020-05-22 08:16 | Day surgery (SDC) | payer OTHER ==
[2020-05-16 11:37] VITALS: BMI 33.7
[~2020-05-22 08:16] MED LIST changes: -BUPIVACAINE (PF) 0.5% 30 ML VIAL ONE; -LIDOCAINE 4% (PF) 5 ML AMP ONE; -MIDAZOLAM 2 MG/2 ML VIAL ONE; -fentaNYL (PF) 50 MCG/ML 2 ML AMP ONE
[2020-05-22 08:34] VITALS: RESP 16; TEMP 97.6
[2020-05-22] MEDS ORDERED: ONDANSETRON 4 MG/2 ML VIAL ONE (08:37)
[2020-05-22] MEDS ORDERED: ONDANSETRON 4 MG/2 ML VIAL IVP ONE (08:37)
[2020-05-22] MEDS ORDERED: fentaNYL (PF) 50 MCG/ML 2 ML AMP ONE (08:40)
[2020-05-22] MEDS ORDERED: methylPREDNISolone ACETATE 40 MG/ML 1 ML VIAL ONE (08:40)
[2020-05-22] MEDS ORDERED: ROPIVACAINE 5MG/ML 20ML VIAL ONE (08:40)
[2020-05-22] MEDS ORDERED: MIDAZOLAM 2 MG/2 ML VIAL ONE (08:40)
[2020-05-22] MEDS ORDERED: KETOROLAC 30 MG/ML 1 ML VIAL IVP STA (09:06)
--- NOTE | 2020-05-22 09:06 | P.PCN ---
Date of Procedure: 05/22/20 Procedure(s) Performed: PREOPERATIVE DIAGNOSIS: 1-Lumbar Spondylosis with Facet Arthropathy without myelopathy. 2- Lumber degenerative disc disease. 3-sacroiliitis POSTOPERATIVE DIAGNOSIS: 1- Lumbar Spondylosis with Facet Arthropathy without myelopathy. 2- Lumber degenerative disc disease. 3-sacroiliitis PROCEDURES : Left Radiofrequency thermocoagulation, L3 , L4 , and L5 medial branch, with fluoroscopic guidance (fluoroscopy images available in the radiology department) ( to denervate the facet joint at L4-5 ,and L5-S1 levels ) ANESTHESIA: Moderate sedation with intravenous versed 2 mg and fentaneyl 150 mcg, and local infiltration with Ropivacaine 0.5 % . EBL: Minimal PROCEDURE INDICATION: The patient with low back pain secondary to lumbar facet arthropathy who had more than 50% relief of her pain with previous diagnostic lumbar medial branch block with bupivacaine. PROCEDURE DESCRIPTION / TECHNIQUE: The patient was seen and identified in the preoperative area. Risks, benefits, complications, including but not limited to risk of infection ,bleeding , allergic reactions to the medications and no complete pain releife , and alternatives were discussed with the patient, the patient agreed to proceed with the procedure and signed the consent. IV was started. Vital signs remained stable throughout the procedure. Patient was taken to the OR and time out was completed. The patient was placed in the prone position on the procedure table. The lumber area was prepped and draped in the usual sterile fashion. . Vital signs were closely monitored during the procedure .IV sedation was used during the procedure to decrease patients anxiety. Using AP and then oblique fluoroscopy, the ``eye of the John dog corresponding to the connection between the superior and transverse articular processes of left L3, L4, and L5 were identified, marked, and localized with 1% lidocaine. Subsequently, a 18 [id number] radiofrequency cannula with a 10-mm active tip was advanced guided by fluoroscopy to each of the``eyes of the John dog at left L3, L4, and L5. Each site then underwent sensory testing at 50 Hz and 0 to 1 volt and motor testing at 2.5 Hz and 0 to 3 volt with local stimulation, but no radicular symptoms down the legs. Thereafter each sites underwent radiofrequency thermocoagulation at 80 degrees celsius for 90 seconds after injecting 0.5 ml of PF Ropivacaine 1ml, then after the thermocoagulation done , 1 ml of the block solution containing Depo-Medrol 40 mg and 3 ml of Ropivacaine 0.5% was injected at the left L3 , L4 , and L5 , levels after negative aspiration of CSF and blood and with no paresthesias. Cannulas were retracted while injecting lidocaine 1% until the needle is out. At the end of the procedure, the skin was cleansed and bandages were applied. COMPLICATIONS: No acute complications. DISPOSITION / PLANS: The patient was placed in a supine position and transferred to the recovery area in a stable condition for observation and was discharged from the recovery room after meeting discharge criteria. Home discharge instructions given to the patient by the staff. The patient was reexamined prior to discharge. The patient will schedule a follow up in the clinic in 2-4 weeks. He will be scheduled to have the right-sided RFA of the medial branch lumbar area
[2020-05-22] MEDS ORDERED: IV FLUID CONTINUATION 1,000 ML IV ONE (09:09)
[2020-05-22 09:11] VITALS: BP 109/63
[2020-05-22 09:29] VITALS: PULSE 64
--- NOTE | 2020-05-22 10:09 | FL ---
Fluoroscopy HISTORY: Pain 12 seconds fluoroscopy time supplied to the referring clinician. 3 intraoperative C-arm images docum ent the procedure. See dictated report from anesthesia.
== END 2020-05-22 09:41 ==
LOC: ORPAIN 08:16
PROVIDERS: ATTEND Anesthesiology
DX: M47.816 Spondylosis without myelopathy or radiculopathy, lumbar region (principal); M46.1 Sacroiliitis, not elsewhere classified; M51.36 Other intervertebral disc degeneration, lumbar region; Z88.8 Allergy status to other drugs, medicaments and biological substances
CPT/HCPCS: 64635; 64636; J2250; J1030; J2405; J3010; J2795; 99152

== ENCOUNTER 2020-06-12 06:38 | Day surgery (SDC) | payer OTHER ==
[2020-06-11 11:01] VITALS: BMI 33.7
[2020-06-12 06:52] VITALS: TEMP 97.8
[2020-06-12] MEDS ORDERED: ONDANSETRON 4 MG/2 ML VIAL ONE (06:53)
[2020-06-12] MEDS ORDERED: LACTATED RINGERS 1,000 ML IV ONE (07:03)
[2020-06-12] MEDS ORDERED: MIDAZOLAM 2 MG/2 ML VIAL ONE (07:09)
[2020-06-12] MEDS ORDERED: methylPREDNISolone ACETATE 40 MG/ML 1 ML VIAL ONE (07:09)
[2020-06-12] MEDS ORDERED: ROPIVACAINE 5MG/ML 20ML VIAL ONE (07:09)
[2020-06-12] MEDS ORDERED: fentaNYL (PF) 50 MCG/ML 2 ML AMP ONE (07:09)
--- NOTE | 2020-06-12 07:31 | P.PCN ---
Date of Procedure: 06/12/20 Procedure(s) Performed: PREOPERATIVE DIAGNOSIS: 1-Lumbar Spondylosis with Facet Arthropathy without myelopathy. 2- Lumber degenerative disc disease. 3-sacroiliitis POSTOPERATIVE DIAGNOSIS: 1- Lumbar Spondylosis with Facet Arthropathy without myelopathy. 2- Lumber degenerative disc disease. 3-sacroiliitis PROCEDURES : Right Radiofrequency thermocoagulation, L3 , L4 , and L5 medial branch, with fluoroscopic guidance (fluoroscopy images available in the radiology department) ( to denervate the facet joint at L4-5 ,and L5-S1 levels ) ANESTHESIA: Moderate sedation with intravenous versed 2 mg and fentaneyl 100 mcg, and local infiltration with Ropivacaine 0.5 % . EBL: Minimal PROCEDURE INDICATION: The patient with low back pain secondary to lumbar facet arthropathy who had more than 50% relief of her pain with previous diagnostic lumbar medial branch block with bupivacaine. PROCEDURE DESCRIPTION / TECHNIQUE: The patient was seen and identified in the preoperative area. Risks, benefits, complications, including but not limited to risk of infection ,bleeding , allergic reactions to the medications and no complete pain releife , and alternatives were discussed with the patient, the patient agreed to proceed with the procedure and signed the consent. IV was started. Vital signs remained stable throughout the procedure. Patient was taken to the OR and time out was completed. The patient was placed in the prone position on the procedure table. The lumber area was prepped and draped in the usual sterile fashion. . Vital signs were closely monitored during the procedure .IV sedation was used during the procedure to decrease patients anxiety. Using AP and then oblique fluoroscopy, the ``eye of the John dog corresponding to the connection between the superior and transverse articular processes of Right L3, L4, and L5 were identified, marked, and localized with 1% lidocaine. Subsequently, a 18 [id number] radiofrequency cannula with a 10-mm active tip was advanced guided by fluoroscopy to each of the``eyes of the John dog at Right L3, L4, and L5. Each site then underwent sensory testing at 50 Hz and 0 to 1 volt and motor testing at 2.5 Hz and 0 to 3 volt with local stimulation, but no radicular symptoms down the legs. Thereafter each sites underwent radiofrequency thermocoagulation at 80 degrees celsius for 90 seconds after injecting 0.5 ml of PF Ropivacaine 1ml, then after the thermocoagulation done , 1 ml of the block solution containing Depo-Medrol 40 mg and 3 ml of Ropivacaine 0.5% was injected at the Right L3 , L4 , and L5 , levels after negative aspiration of CSF and blood and with no paresthesias. Cannulas were retracted while injecting lidocaine 1% until the needle is out. At the end of the procedure, the skin was cleansed and bandages were applied. COMPLICATIONS: No acute complications. DISPOSITION / PLANS: The patient was placed in a supine position and transferred to the recovery area in a stable condition for observation and was discharged from the recovery room after meeting discharge criteria. Home discharge instructions given to the patient by the staff. The patient was reexamined prior to discharge. The patient will schedule a follow up in the clinic in 2-4 weeks. He will be scheduled to have the right-sided RFA of the medial branch lumbar area
[2020-06-12] MEDS ORDERED: IV FLUID CONTINUATION 1,000 ML IV ONE (07:33)
[2020-06-12 07:38] VITALS: RESP 16
[2020-06-12 07:50] VITALS: BP 116/67; PULSE 67
--- NOTE | 2020-06-12 11:10 | FL ---
EXAMINATION TYPE: FL guided pain mgmt statistic DATE OF EXAM: 06/12/2020 CLINICAL HISTORY: Low back pain. TECHNIQUE: Fluoroscopy. COMPARISON: None. FINDINGS: Fluoroscopic guidance was provided during pain relief procedure performed by Dr. Bowles . A total of 16 seconds of fluoroscopic time was utilized during the procedure and 3 spot images are acquired. Images acquired shows needle localization at several levels in the lumbar spine. IMPRESSION: As Above.
== END 2020-06-12 08:02 ==
LOC: ORPAIN 06:38
PROVIDERS: ATTEND Specialist
DX: M47.816 Spondylosis without myelopathy or radiculopathy, lumbar region (principal); M46.1 Sacroiliitis, not elsewhere classified; M51.36 Other intervertebral disc degeneration, lumbar region; I10 Essential (primary) hypertension; Z88.8 Allergy status to other drugs, medicaments and biological substances; Z91.048 Other nonmedicinal substance allergy status
CPT/HCPCS: 64635; 64636; J2250; J1030; J2405; J3010; J2795; 99152

== ENCOUNTER → 2020-07-09 | Outpatient (CLI) | payer OTHER ==
[2020-07-09 10:53] VITALS: BP 126/87; PULSE 82; RESP 16; TEMP 98.2
--- NOTE | 2020-07-10 15:10 | P.PN ---
Subjective Progress Note Date: 07/09/20 This is follow-up visit for this 40 years old male with a chronic history of severe low back pain is diagnosed with lumbar spondylosis with lumbar facet arthropathy and lumbar degenerative disc disease, and bilateral sacroiliitis, previously we have done radiofrequency thermocoagulation of the median branch lumbar area, and we did sacroiliac joint steroid injection patient get excellent pain relief, patient continued to use Mobic 7.5 mg twice a day and Zanaflex 8 mg 3 times a day and Lyrica 50 mg twice a day, patient also uses oxycodone 5 mg every 8 hours when necessary, he denies any side effects of the medication and denies any excessive drowsiness or sleepiness and he continued to have severe lo w back pain mostly in the buttock area more prominent on the right side Objective - Vital Signs Vital signs: Vital Signs Temp 98.2 F 07/09/20 10:42 Pulse 82 07/09/20 10:42 Resp 16 07/09/20 10:42 BP 126/87 07/09/20 10:42 Pulse Ox 94 L 07/09/20 10:42 Intake & Output 07/09/20 07/10/20 07/10/20 18:59 06:59 18:59 Weight 116.12 kg - Exam Physical Examinations : -Constitutiona : Cooperative , not in acute distress . -HEENT : nech : supple , no Lymphadenopathy , normal thyroid size . : eyes : no ptosis , no icterus, no photophobia . - neurologic : Cranial nerve II to XII intact , no focal neurological deffecit . -psychatric : alert , oriented X 3 , appropriate affect , intact judgment and insight . -Lymphatic : no Lymphadenopathy . - musculoskeltal : Lumber spine moter stegnth lower extremities ,thigh and legs 5/5 Right side , 5/5 Left side deep tendon reflexes : normal Knee Jerk , normal ankle Jerk lumber facet Loading Test =positive Right , positive Left Range of motion of the lumbar spine Flexion 30 degrees, extension 10 degrees strait leg raising test = positive at 45 degree Fabere test= positive Right , and positive LT . Sever tenderness over the Sacroiliac joint on the Right , and Left sides Gaenslen test= positive right ,and positive left . Seated flexion test= positive right ,and positive Left . Assessment and Plan Plan: Assessment and plan= chronic low back pain secondary to lumbar degenerative disc disease , lumbar spondylosis with lumbar facet arthropathy . And sacroiliitis chronic and current use of high-risk medication (opioids) Patient denies any side effects of the current pain medication and the current treatment/medication helping the patient to do activity of daily living , Diagnoses, prognosis, treatment options, including but not limited to physical therapy, medication management, interventional therapies, and surgery, were discussed with the patient All the questions answered The narcotic consent was signed and patient agreed and understood the side effects and complications of opioid treatment. Patient signed the narcotic agreement, and was orally counseled, not to overuse, not to abuse, not to Divert , not tp sell pain medication, and to take it as prescribed only, Patient was counseled not to drive or operate heavy equipment while using narcotic medication, and advised not to use alcohol or any Illicit drugs while using the narcotis. understanding that lack of compliance with any of the above instructions, will likely to cause discharge from, the pain service, not to renew his narcotic prescriptions [facility] Reviwed and it was apropriate . Urine drug screen ordered Medication managements= patient will be given prescription refills for Lyrica 150 mg twice a day , oxycodone 5 mg 3 times a day dispense 60 with 1 refill Interventions= patient could benefit from right side sacroiliac joint RFA (RFA of the L5-S1 dorsal ramus and RFA of the lateral branches S1 S2 S3) and if Daryl is not approved by the insurance then we can repeat right-sided sacroiliac joint steroid injection - PQRS measures = - Patient's medications are documented in the chart. -Tobacco use is negative and counseling.Given. -Patient's has not received pneumococcal vaccine. -Advanced care planning discussed, patient not eligible. -Opiate contract signed. -Pain positive and follow-up visit/procedure is scheduled. -Patient's blood pressure measured [ 125/87 ] , and documented in the record ,and patient will follow up with the primary care. -Patient's weight was measured and body mass index [32.9 ] above the,within the normal limits and counseling was done. and patient instructed to follow-up with the primary care physician. -Patient was not identified as an unhealthy alcohol user , Time with Patient: Less than 30
== END | disposition home or self-care (01) ==
LOC: PNWHC3 10:10
PROVIDERS: ATTEND Specialist
DX: M51.36 Other intervertebral disc degeneration, lumbar region (principal); M47.816 Spondylosis without myelopathy or radiculopathy, lumbar region; M46.96 Unspecified inflammatory spondylopathy, lumbar region; M46.1 Sacroiliitis, not elsewhere classified; G89.29 Other chronic pain
CPT/HCPCS: 80307; G0482; G0463; 99211

== ENCOUNTER 2020-07-10 11:48 | Emergency (ER) | payer OTHER ==
[2020-07-10 11:55] VITALS: RESP 18
[2020-07-10] MEDS ORDERED: KETOROLAC 15 MG/ML 1 ML VIAL IVP STA (12:10)
[2020-07-10] MEDS ORDERED: SODIUM CHLORIDE 0.9% 1,000 ML IV STA (12:10)
[2020-07-10] MEDS ORDERED: ONDANSETRON 4 MG/2 ML VIAL IVP STA (12:10)
[2020-07-10] MEDS ORDERED: HYDROmorphone 1 MG/ML 1 ML SYRINGE IVP STA ×2 (12:11→13:31)
[2020-07-10 12:29] LABS: Appearance,Urine Clear (Clear); Basophils % (A) 1 %; Bilirubin,Urine Negative (Negative); Blood,Urine Negative (Negative); Color,Urine Yellow; Eosinophils # (A) 0.3 k/uL (0-0.7); Eosinophils % (A) 4 %; Glucose,Urine (UA) Negative (Negative); HGB 17.7 gm/dL (13.0-17.5); Ketones,Urine Negative (Negative); Leukocyte Esterase,Urine Negative (Negative); Lymphocytes # (A) 1.3 k/uL (1.0-4.8); Lymphocytes % (A) 19 %; MCHC 31.9 g/dL (31.0-37.0); MCV 90.8 fL (80.0-100.0); Mean Platelet Volume 8.7; Monocytes # (A) 0.5 k/uL (0-1.0); Monocytes % (A) 7 %; Neutrophils # (A) 4.6 k/uL (1.3-7.7); Neutrophils % (A) 68 %; Nitrite,Urine Negative (Negative); Platelet Count 239 k/uL (150-450); Protein,Urine Negative (Negative); RBC 6.11 m/uL (4.30-5.90); RDW 13.4 % (11.5-15.5); Specific Gravity,Urine 1.015 (1.001-1.035); Urobilinogen,Urine <2.0 mg/dL (<2.0); WBC 6.8 k/uL (3.8-10.6)
[2020-07-10 12:40] LABS: Albumin 4.4 g/dL (3.5-5.0); Calcium 9.2 mg/dL (8.4-10.2); Potassium 4.1 mmol/L (3.5-5.1); Total Bilirubin 0.5 mg/dL (0.2-1.3); Total Protein 7.4 g/dL (6.3-8.2)
[2020-07-10] MEDS ORDERED: SODIUM CHLORIDE 0.9% 1,000 ML IV ONE (12:41)
--- NOTE | 2020-07-10 12:41 | ED ---
Abdominal Pain HPI - General Source: patient, RN notes reviewed, old records reviewed Mode of arrival: ambulatory Limitations: no limitations <Carole Presley - Last Filed: 07/10/20 13:49> <Crystal Chambers - Last Filed: 07/10/20 16:05> - General Chief Complaint: Abdominal Pain Stated Complaint: Poss Kidney Stone Time Seen by Provider: 07/10/20 12:03 - History of Present Illness Initial Comments: 40-year-old male presents emergency department today for evaluation for concern of right flank pain. Symptoms starting over the past 3 days. Complaint of dysuria and concerning UTI symptoms. States a history of multiple kidney stones. He reports these had history of lithotripsies and ureteral stenting. His urologist is Dr. Benitez. (Carole Presley) - Related Data Home Medications Medication Instructions Recorded Confirmed Levothyroxine Sodium [Synthroid] 50 mcg PO DAILY 03/30/14 07/09/20 Testosterone Cypionate 130 mg IM Q72H 01/26/19 07/09/20 [Depo-Testosterone] lisinopriL [Zestril] 10 mg PO BID 01/26/19 07/09/20 Acetaminophen Tab [Tylenol] 650 mg PO Q6H PRN 04/29/19 07/09/20 amLODIPine [Norvasc] 5 mg PO DAILY 04/29/19 07/09/20 Previous Rx's Medication Instructions Recorded Ondansetron Odt [Zofran Odt] 4 mg PO Q8HR PRN #10 tab 09/19/19 Meloxicam [Mobic] 7.5 mg PO BID #60 tab 07/09/20 Pregabalin [Lyrica] 150 mg PO BID 30 Days #60 cap 07/09/20 oxyCODONE HCL 5 mg PO Q8H PRN 30 Days #60 cap 07/09/20 oxyCODONE HCL 5 mg PO Q8H PRN 30 Days #60 cap 07/09/20 tiZANidine HCL [Zanaflex] 8 mg PO TID PRN #90 tab 07/09/20 Allergies Allergy/AdvReac Type Severity Reaction Status Date / Time benzalkonium chloride Allergy Severe Swelling Verified 07/10/20 11:55 duloxetine HCl AdvReac Severe severe Verified 07/10/20 11:55 [From Cymbalta] headache gabapentin [From Neurontin] AdvReac HEADACHE Verified 07/10/20 11:55 Review of Systems ROS Other: All systems not noted in ROS Statement are negative. <Carole Presley - Last Filed: 07/10/20 13:49> ROS Other: All systems not noted in ROS Statement are negative. <Crystal Chambers - Last Filed: 07/10/20 16:05> ROS Statement: Those systems with pertinent positive or pertinent negative responses have been documented in the HPI. Past Medical History Past Medical History: GERD/Reflux, Hypertension, Thyroid Disorder Additional Past Medical History / Comment(s): HX KIDNEY STONE, CHRONIC BACK PAIN, LOW THYROID, UMBILICAL HERNIA. History of Any Multi-Drug Resistant Organisms: None Reported Past Surgical History: Appendectomy, Cholecystectomy Additional Past Surgical History / Comment(s): PAIN PROCEDURES, VASECTOMY.; multiple kidney stone removals Past Anesthesia/Blood Transfusion Reactions: No Reported Reaction Additional Past Anesthesia/Blood Transfusion Reaction / Comment(s): States needs more sedation to put me asleep. Past Psychological History: No Psychological Hx Reported Smoking Status: Former smoker Past Alcohol Use History: None Reported Past Drug Use History: None Reported - Past Family History Mother History Unknown: Yes Family Medical History: Dementia Father Additional Family Medical History / Comment(s): SMOKER. <Carole Presley - Last Filed: 07/10/20 13:49> General Exam Limitations: no limitations General appearance: alert, in no apparent distress Head exam: Present: atraumatic, normocephalic, normal inspection Eye exam: Present: normal appearance, PERRL, EOMI. Absent: scleral icterus, conjunctival injection, periorbital swelling ENT exam: Present: normal exam, mucous membranes moist Neck exam: Present: normal inspection. Absent: tenderness, meningismus, lym phadenopathy Respiratory exam: Present: normal lung sounds bilaterally. Absent: respiratory distress, wheezes, rales, rhonchi, stridor Cardiovascular Exam: Present: regular rate, normal rhythm, normal heart sounds. Absent: systolic murmur, diastolic murmur, rubs, gallop, clicks GI/Abdominal exam: Present: soft, normal bowel sounds. Absent: distended, tenderness, guarding, rebound, rigid Extremities exam: Present: normal inspection, full ROM, normal capillary refill. Absent: tenderness, pedal edema, joint swelling, calf tenderness Back exam: Present: normal inspection, tenderness (Right lower abdominal tenderness) Neurological exam: Present: alert, oriented X3, CN II-XII intact Psychiatric exam: Present: normal affect, normal mood Skin exam: Present: warm, dry, intact, normal color. Absent: rash <Carole Presley - Last Filed: 07/10/20 13:49> - General Exam Comments Initial Comments: 40-year-old male. No distress. (Carole Presley) Course Vital Signs 07/10/20 07/10/20 11:53 14:33 Temperature 99 F 98.1 F Pulse Rate 91 71 Respiratory 18 18 Rate Blood Pressure 122/77 122/76 O2 Sat by Pulse 96 95 Oximetry Medical Decision Making - Lab Data Result diagrams: 07/10/20 12:16 07/10/20 12:16 - Radiology Data Radiology results: report reviewed <Carole Presley - Last Filed: 07/10/20 13:49> - Lab Data Result diagrams: 07/10/20 12:16 07/10/20 12:16 <Crystal Chambers - Last Filed: 07/10/20 16:05> - Medical Decision Making 40-year-old male present fiance for evaluation for a lower abdominal pain, flank pain concern for dysuria and renal stones. Patient's labwork was reviewed. A UA shows no signs of infection or blood. Labs including kidney function test were unremarkable. KUB was completely completed and did show questionable right ureteral stone. With length of pain and patient's concern consistent symptoms Patient CT. CT shows no evidence of renal stones or obstruction. Discussed Patient has no clinical findings to account for his pain at this time and to follow-up with his PCP. Discussed parameters of return. (Carole Presley) I was available for consultation in the emergency department. The history and physical exam were done by the midlevel provider. I was consulted for this patients care. I reviewed the case with the midlevel provider and based on their presentation of the patient, I agree with the assessment, medical decision making and plan of care as documented. Chart was dictated using [employer] dictation software. Attempts were made to correct any dictation errors however some typographical errors may persist. (Crystal Tovar) - Lab Data Lab Results 07/10/20 07/10/20 07/10/20 Range/Units 12:16 12:16 12:16 WBC 6.8 (3.8-10.6) k/uL RBC 6.11 H (4.30-5.90) m/uL Hgb 17.7 H (13.0-17.5) gm/dL Hct 55.4 H (39.0-53.0) % MCV 90.8 (80.0-100.0) fL MCH 29.0 (25.0-35.0) pg MCHC 31.9 (31.0-37.0) g/dL RDW 13.4 (11.5-15.5) % Plt Count 239 (150-450) k/uL Neutrophils % 68 % Lymphocytes % 19 % Monocytes % 7 % Eosinophils % 4 % Basophils % 1 % Neutrophils # 4.6 (1.3-7.7) k/uL Lymphocytes # 1.3 (1.0-4.8) k/uL Monocytes # 0.5 (0-1.0) k/uL Eosinophils # 0.3 (0-0.7) k/uL Basophils # 0.0 (0-0.2) k/uL PT 10.1 (9.0-12.0) sec INR 1.0 (<1.2) APTT 23.8 (22.0-30.0) sec Sodium (137-145) mmol/L Potassium (3.5-5.1) mmol/L Chloride (98-107) mmol/L Carbon Dioxide (22-30) mmol/L Anion Gap mmol/L BUN (9-20) mg/dL Creatinine (0.66-1.25) mg/dL Est GFR (CKD-EPI)AfAm (>60 ml/min/1.73 sqM) Est GFR (CKD-EPI)NonAf (>60 ml/min/1.73 sqM) Glucose (74-99) mg/dL Calcium (8.4-10.2) mg/dL Total Bilirubin (0.2-1.3) mg/dL AST (17-59) U/L ALT (4-49) U/L Alkaline Phosphatase (38-126) U/L Total Protein (6.3-8.2) g/dL Albumin (3.5-5.0) g/dL Amylase (30-110) U/L Lipase (23-300) U/L Urine Color Yellow Urine Appearance Clear (Clear) Urine pH 7.0 (5.0-8.0) Ur Specific [place] 1.015 (1.001-1.035) Urine Protein Negative (Negative) Urine Glucose (UA) Negative (Negative) Urine Ketones Negative (Negative) Urine Blood Negative (Negative) Urine Nitrite Negative (Negative) Urine Bilirubin Negative (Negative) Urine Urobilinogen <2.0 (<2.0) mg/dL Ur Leukocyte Esterase Negative (Negative) 07/10/20 Range/Units 12:16 WBC (3.8-10.6) k/uL RBC (4.30-5.90) m/uL Hgb (13.0-17.5) gm/dL Hct (39.0-53.0) % MCV (80.0-100.0) fL MCH (25.0-35.0) pg MCHC (31.0-37.0) g/dL RDW (11.5-15.5) % Plt Count (150-450) k/uL Neutrophils % % Lymphocytes % % Monocytes % % Eosinophils % % Basophils % % Neutrophils # (1.3-7.7) k/uL Lymphocytes # (1.0-4.8) k/uL Monocytes # (0-1.0) k/uL Eosinophils # (0-0.7) k/uL Basophils # (0-0.2) k/uL PT (9.0-12.0) sec INR (<1.2) APTT (22.0-30.0) sec Sodium 138 (137-145) mmol/L Potassium 4.1 (3.5-5.1) mmol/L Chloride 103 (98-107) mmol/L Carbon Dioxide 26 (22-30) mmol/L Anion Gap 9 mmol/L BUN 14 (9-20) mg/dL Creatinine 1.22 (0.66-1.25) mg/dL Est GFR (CKD-EPI)AfAm 84 (>60 ml/min/1.73 sqM) Est GFR (CKD-EPI)NonAf 73 (>60 ml/min/1.73 sqM) Glucose 94 (74-99) mg/dL Calcium 9.2 (8.4-10.2) mg/dL Total Bilirubin 0.5 (0.2-1.3) mg/dL AST 21 (17-59) U/L ALT 21 (4-49) U/L Alkaline Phosphatase 60 (38-126) U/L Total Protein 7.4 (6.3-8.2) g/dL Albumin 4.4 (3.5-5.0) g/dL Amylase 58 (30-110) U/L Lipase 381 H (23-300) U/L Urine Color Urine Appearance (Clear) Urine pH (5.0-8.0) Ur Specific [place] (1.001-1.035) Urine Protein (Negative) Urine Glucose (UA) (Negative) Urine Ketones (Negative) Urine Blood (Negative) Urine Nitrite (Negative) Urine Bilirubin (Negative) Urine Urobilinogen (<2.0) mg/dL Ur Leukocyte Esterase (Negative) - Radiology Data No masses are evident. No hydronephrosis present. No cysts are present. No renal stones are evident. KUB shows difficult to exclude right ureteral calculus. (Carole Presley) Disposition Is patient prescribed a controlled substance at d/c from ED?: No Time of Disposition: 13:52 <Carole Presley - Last Filed: 07/10/20 13:49> <Crystal Chambers - Last Filed: 07/10/20 16:05> Clinical Impression: Right flank pain Disposition: HOME SELF-CARE Condition: Stable Instructions (If sedation given, give patient instructions): Flank Pain (ED) Additional Instructions: Follow-up with PCP. Return to the ED if any alarming signs or symptoms occur. Referrals: Ryan Loving Jr, [Primary Care Provider] - 1-2 days
[2020-07-10 12:43] LABS: HCT 55.4 % (39.0-53.0)
[2020-07-10 12:44] LABS: Partial Thromboplastin Time 23.8 sec (22.0-30.0); Prothrombin Time 10.1 sec (9.0-12.0)
--- NOTE | 2020-07-10 12:56 | XR ---
KUB HISTORY: Right posterior flank pain, abdominal pain Frontal KUB and 2 images correlated to prior KUB dated 09/19/2019 There are air-fluid levels without bowel distention. No pneumoperitoneum. Surgical clips are present in the right upper quadrant as on prior. Spinal curvature may be positional. Bowel gas may obscure un derlying detail. Lung bases are clear. Indeterminate calcification present in the right paraspinal lo cation at the level of L5 transverse process, L5 appears partially sacralized. IMPRESSION: Difficult to exclude right ureteral calculus.
[2020-07-10] MEDS ORDERED: METOCLOPRAMIDE 5 MG/ML 2 ML VIAL IVP STA (13:31)
[2020-07-10] MEDS ORDERED: TAMSULOSIN 0.4 MG CAP.ER.24H PO STA (13:31)
--- NOTE | 2020-07-10 13:47 | CT ---
EXAMINATION TYPE: CT abdomen pelvis wo con DATE OF EXAM: 07/10/2020 COMPARISON: 06/05/2019 INDICATION: right flank pain DLP: 1180.4 mGycm, Automated exposure control for dose reduction was used. CONTRAST: 0 mL of Isovue 300. Study performed without Oral Contrast TECHNIQUE: Axial images were obtained from above the diaphragm to the pubic rami in the axial plane a t 5 mm thick sections. Reconstructed images are reviewed on the computer in the coronal plane. FINDINGS: Limited CT sections are obtained the lung bases. The lung bases are clear. CT ABDOMEN: Liver: Normal Spleen: Normal. Splenule is anterior to the tip of the spleen. Pancreas: Normal Adrenal glands: The adrenal glands are normal. Gallbladder: Gallbladder is surgically absent. Kidneys: No masses are evident. No hydronephrosis is present. No cysts are present. No renal stone s are evident. Aorta: Vascular calcification is within the aorta. Inferior vena cava: Normal. CT PELVIS: Loops of bowel within the abdomen and pelvis are normal. Study is without oral contrast limiting bowel evaluation. Appendix: The appendix is absent. Urinary bladder: Normal. Genitourinary structures: Prostate is prominent contains calcification Osseous structures: No suspicious lytic or sclerotic lesions. IMPRESSIONS: 1. No suspicious acute changes to account for right flank pain
[2020-07-10 14:34] VITALS: BP 122/76; PULSE 71; TEMP 98.1
== END 2020-07-10 14:15 | disposition home or self-care (01) ==
LOC: EC 11:48
DX: R10.30 Lower abdominal pain, unspecified (principal); R30.0 Dysuria; I10 Essential (primary) hypertension; E03.9 Hypothyroidism, unspecified; Z79.890 Hormone replacement therapy; Z79.899 Other long term (current) drug therapy; Z87.891 Personal history of nicotine dependence; Z88.8 Allergy status to other drugs, medicaments and biological substances; Z87.19 Personal history of other diseases of the digestive system; Z87.442 Personal history of urinary calculi; Z98.52 Vasectomy status
CPT/HCPCS: 36415; 80053; 82150; 83690; 85025; 85610; 85730; 81003; 74018; 74176; 99285; 96374; 96375 ×3; 96376; 96361 ×2; J2765; J2405; J1170; J1885

== ENCOUNTER 2020-07-24 10:02 | Day surgery (SDC) | payer OTHER ==
[2020-07-24 10:27] VITALS: TEMP 97.8
[2020-07-24] MEDS ORDERED: LIDOCAINE 1% (10MG/ML) FOR IV START INTRADERMA ONE (10:36)
[2020-07-24] MEDS ORDERED: ONDANSETRON 4 MG/2 ML VIAL ONE (10:39)
[2020-07-24] MEDS ORDERED: ONDANSETRON 4 MG/2 ML VIAL IVP ONE (10:40)
[2020-07-24] MEDS ORDERED: fentaNYL (PF) 50 MCG/ML 2 ML AMP ONE (10:41)
[2020-07-24] MEDS ORDERED: TRIAMCINOLONE ACETONIDE 40 MG/ML 1 ML VIAL ONE (10:41)
[2020-07-24] MEDS ORDERED: ROPIVACAINE 5MG/ML 20ML VIAL ONE (10:41)
[2020-07-24] MEDS ORDERED: MIDAZOLAM 2 MG/2 ML VIAL ONE (10:41)
--- NOTE | 2020-07-24 10:57 | P.PCN ---
Date of Procedure: 07/24/20 Surgeon: Joana Trent Pathology: none sent Condition: stable Disposition: PACU Description of Procedure: Preoperative diagnoses= sacroiliac joint dysfunction and sacroiliitis on the r ight side Postoperative diagnoses= same as preoperative diagnosis. Procedure= sacroiliac joint steroid injection under fluoroscopic guidance. Anesthesia= local anesthesia with lidocaine 1% and IV moderate conscious sedation with fentanyl and Versed Estimated blood loss=minimal. Procedure indication= the patient had a history of severe chronic low back pain, diagnosed with sacroiliitis and lumbar sacral facet arthropathy unresponsive to conservative treatment. Procedure description= the patient was seen and identified in the preoperative holding area, risks and benefits and alternative of the procedure and possible complications discussed with the patient, patient signed the consent. an IV was started, and vital signs were monitored and were stable throughout the pr ocedure, patient was placed in the prone position or table and the lumbosacral area was prepped and draped with a sterile fashion, vital signs were closely monitored during the procedure.The sacroiliac joint was identified on the AP view of fluoroscopy then the C-arm was tilted to the contralateral oblique position to superimpose the anterior and posterior joint lines on each other and to have a unified joint line with the target point at the inferior one third of this line. I used 22-gauge 3-1/2 inch Quincke spinal needle for this procedure and after getting into the sacroiliac joint I injected 40 mg of Kenalog +2 MLS of Ropivacaine 0.5%. Patient tolerated the procedure well without any complication, The patient returned to supine position after the back was cleaned and a Band- Aid applied, the patient transported to recovery room in stable condition and he was monitored for 30 minutes before she was discharged home in stable condition . patient will follow up with the pain clinic in a few weeks. A copy of the needle placement was saved to the C-arm machine.
[2020-07-24] MEDS ORDERED: IV FLUID CONTINUATION 1,000 ML IV ONE (10:58)
[2020-07-24 11:02] VITALS: RESP 18
[2020-07-24 11:15] VITALS: BP 114/74; PULSE 68
--- NOTE | 2020-07-24 13:50 | FL ---
EXAMINATION TYPE: FL guided pain mgmt statistic DATE OF EXAM: 07/24/2020 COMPARISON: NONE HISTORY: Pain injection TECHNIQUE: Fluoroscopy. FINDINGS: Fluoroscopic guidance was provided during procedure for performing physician. A total of 9 seconds of fluoroscopic time was utilized during the procedure and 1 spot images was acquired. Plea se see operative report for additional details. IMPRESSION: As Above.
== END 2020-07-24 11:46 | disposition home or self-care (01) ==
LOC: ORPAIN 10:02
PROVIDERS: ATTEND Anesthesiology
DX: G89.29 Other chronic pain (principal); M46.1 Sacroiliitis, not elsewhere classified; M53.3 Sacrococcygeal disorders, not elsewhere classified; M43.07 Spondylolysis, lumbosacral region; Z88.8 Allergy status to other drugs, medicaments and biological substances
CPT/HCPCS: J2250; J3301; J2405; J3010; J2795; G0260; 27096

== ENCOUNTER → 2020-08-02 | Outpatient (CLI) | payer OTHER ==
[~2020-08-02] MED LIST changes: -LACTATED RINGERS 1,000 ML IV SCH; +SODIUM CHLORIDE 0.9% 500 ML 500 ML in EMPTY BAG 1 BAG IV PRN
[2020-08-02 08:31] VITALS: BP 138/87; PULSE 66; RESP 16; TEMP 98.3
[2020-08-02 08:42] LABS: HGB 17.2 gm/dL (13.0-17.5); MCH 29.6 pg (25.0-35.0); MCHC 31.3 g/dL (31.0-37.0); MCV 94.6 fL (80.0-100.0); Mean Platelet Volume 9.5; Platelet Count 201 k/uL (150-450); RBC 5.82 m/uL (4.30-5.90); RDW 13.7 % (11.5-15.5); WBC 6.9 k/uL (3.8-10.6)
[2020-08-02 08:45] LABS: HCT 55.1 % (39.0-53.0)
== END | disposition home or self-care (01) ==
LOC: PROCWHC3 08:17
PROVIDERS: ATTEND Nurse Practitioner Family
DX: D45 Polycythemia vera (principal)
CPT/HCPCS: 36415; 85027; 99195

== ENCOUNTER → 2020-08-20 | Outpatient (CLI) | payer OTHER ==
[2020-08-20 09:57] VITALS: BP 143/82; PULSE 71; RESP 18; TEMP 98.6
--- NOTE | 2020-08-20 10:56 | P.PN ---
Subjective Progress Note Date: 08/20/20 This is follow-up visit for this 40 years old male with a chronic history of severe low back pain is diagnosed with lumbar spondylosis with lumbar facet arthropathy and lumbar degenerative disc disease, and bilateral sacroiliitis, previously we have done radiofrequency thermocoagulation of the median branch lumbar area, and we did sacroiliac joint steroid injection patient get excellent pain relief, patient continued to use Mobic 7.5 mg twice a day and Zanaflex 8 mg 3 times a day and Lyrica 150 mg twice a day, patient also uses oxycodone 5 mg every 8 hours when necessary, he denies any side effects of the medication and denies any excessive drowsiness or sleepiness and he continued to have severe low back pain mostly in the buttock area more prominent on the right side recently we did right-sided sacroiliac joint steroid injection he reports good benefit but only for short, and he reported that he had difficulty getting his oxycodone filled , because of need approval from the insurance, last visit we did urine drug screen which was negative for oxycodone and patient did not take oxycodone for several days before the urine drug screen, this reason it was negative for oxycodone. Objective - Exam -Constitutiona : Cooperative , not in acute distress . -HEENT : nech : supple , no Lymphadenopathy , normal thyroid size . : eyes : no ptosis , no icterus, no photophobia . - neurologic : Cranial nerve II to XII intact , no focal neurological deffecit . -psychatric : alert , oriented X 3 , appropriate affect , intact judgment and insight . -Lymphatic : no Lymphadenopathy . - musculoskeltal : Lumber spine moter stegnth lower extremities ,thigh and legs 5/5 Right side , 5/5 Left side deep tendon reflexes : normal Knee Jerk , normal ankle Jerk lumber facet Loading Test =positive Right , positive Left Range of motion of the lumbar spine Flexion 30 degrees, extension 10 degrees strait leg raising test = positive at 45 degree Fabere test= positive Right , and positive LT . Sever tenderness over the Sacroiliac joint on the Right , and Left sides Gaenslen test= positive right ,and positive left . Seated flexion test= positive right ,and positive Left . Assessment and Plan Plan: Assessment and plan= chronic low back pain secondary to lumbar degenerative disc disease , lumbar spondylosis with lumbar facet arthropathy . And sacroiliitis chronic and current use of high-risk medication (opioids) Patient denies any side effects of the current pain medication and the current treatment/medication helping the patient to do activity of daily living , Diagnoses, prognosis, treatment options, including but not limited to physical therapy, medication management, interventional therapies, and surgery, were discussed with the patient All the questions answered The narcotic consent was signed and patient agreed and understood the side effects and complications of opioid treatment. Patient signed the narcotic agreement, and was orally counseled, not to overuse, not to abuse, not to Divert , not tp sell pain medication, and to take it as prescribed only, Patient was counseled not to drive or operate heavy equipment while using narcotic medication, and advised not to use alcohol or any Illicit drugs while using the narcotis. understanding that lack of compliance with any of the above instructions, will likely to cause discharge from, the pain service, not to renew his narcotic prescriptions MAPS Reviwed and it was apropriate . Urine drug screen ordered Medication managements= patient will be given prescription refills for Lyrica 150 mg twice a day , discontinue oxycodone I will start patient on Percocet 5/325 every 12 hours when necessary dispense 60 with 1 refill Patient will follow up in the pain clinic in 3 months (he just felt his oxycodone today had copayment $150 ) Family give the patient prescription refill for 3 months for Lyrica , in 2 months for Percocet note = next visit we'll do urine drug screen PQRS= - Patient's medications are documented in the chart. -Tobacco use is negative and counseling.Given. -Patient's has not received pneumococcal vaccine. -Advanced care planning discussed, patient not eligible. -Opiate contract signed. -Pain positive and follow-up visit/procedure is scheduled. -Patient's blood pressure measured [ 143/82 ] , and documented in the record ,and patient will follow up with the primary care. -Patient's weight was measured and body mass index [32.9 ] above the,within the normal limits and counseling was done. and patient instructed to follow-up with the primary care physician. -Patient was not identified as an unhealthy alcohol user Time with Patient: Less than 30
== END | disposition home or self-care (01) ==
LOC: PNWHC3 08:41
PROVIDERS: ATTEND Specialist
DX: M51.36 Other intervertebral disc degeneration, lumbar region (principal); M47.816 Spondylosis without myelopathy or radiculopathy, lumbar region; M46.1 Sacroiliitis, not elsewhere classified; Z79.891 Long term (current) use of opiate analgesic
CPT/HCPCS: 99211

== ENCOUNTER → 2020-10-19 | Outpatient (CLI) | payer OTHER ==
--- NOTE | 2020-10-19 12:11 | US ---
EXAMINATION TYPE: US abdomen comp/pelvis limited DATE OF EXAM: 10/19/2020 COMPARISON: CT & US 2019 CLINICAL HISTORY: K43.9 Upper gastric. Abdomen and pelvic pain x couple weeks, nausea, history of cho lecystectomy EXAM MEASUREMENTS: Liver Length: 15.2 cm CBD: 0.4 cm Spleen: 10.7 cm Right Kidney: 11.8 x 5.3 x 5.0 cm Left Kidney: 11.2 x 6.2 x 5.0 cm Pancreas: visualized portions wnl, limited by overlying midline bowel gas Liver: There is mild attenuation through the liver compatible some mild fatty infiltration liver. Gallbladder: surgically absent CBD: visualized portions wnl, limited by overlying bowel gas Spleen: wnl Right Kidney: wnl Left Kidney: 1.0cm cystic area superior pole Upper IVC: wnl Abd Aorta: wnl Bladder: wnl Bilateral Jets Seen yes IMPRESSION: 1. Mild fatty infiltration liver.
== END | disposition home or self-care (01) ==
LOC: RADUSWWP 08:57
PROVIDERS: ATTEND Family Medicine
DX: K76.0 Fatty (change of) liver, not elsewhere classified (principal); Z88.8 Allergy status to other drugs, medicaments and biological substances
CPT/HCPCS: 76700; 76857

== ENCOUNTER 2020-10-20 20:44 | Emergency (ER) | payer OTHER ==
[2020-10-20] MEDS ORDERED: ONDANSETRON ODT 4 MG TAB PO STA (21:04)
--- NOTE | 2020-10-20 21:07 | ED ---
General Adult HPI - General Chief complaint: Nausea/Vomiting/Diarrhea Stated complaint: Nausea Time Seen by Provider: 10/20/20 20:55 Source: patient, RN notes reviewed Mode of arrival: ambulatory - History of Present Illness Initial comments: 40-year-old male presents to the emergency room for chief complaint of nausea. Patient reports that he has chronic back pain for which he usually takes Percocet and Zanaflex. Patient states that he injured his back [facility] who prescribed them CBD/THC 5 mg gummies for pain. Patient states that about an hour after he took these he started to feel nauseous and felt like his heart was racing. He checked his blood pressure and it was 153/97 which is higher than normal for him. He has a slight headache. He denies shortness of breath but admits to a mild chest pain. Sharp in nature. Nonradiating. No associated diaphoresis. Denies worsening pain with exertion.. Patient has no other complaints at this time including shortness of breath, abdominal pain, vomiting, or visual changes. - Related Data Home Medications Medication Instructions Recorded Confirmed Levothyroxine Sodium [Synthroid] 50 mcg PO DAILY 03/30/14 10/20/20 Testosterone Cypionate 160 mg IM Q72H 01/26/19 10/20/20 [Depo-Testosterone] lisinopriL [Zestril] 10 mg PO BID 01/26/19 10/20/20 Acetaminophen Tab [Tylenol] 650 mg PO Q6H PRN 04/29/19 10/20/20 amLODIPine [Norvasc] 5 mg PO DAILY 04/29/19 10/20/20 Albuterol Sulfate [Ventolin HFA] 1 - 2 puff INHALATION RT-QID PRN 10/20/20 10/20/20 L.acidoph,Paracasei, B.lactis 1 cap PO DAILY 10/20/20 10/20/20 [Probiotic] Sildenafil Citrate [Sildenafil] 20 mg PO DAILY PRN 10/20/20 10/20/20 Previous Rx's Medication Instructions Recorded Pregabalin [Lyrica] 150 mg PO BID 30 Days #60 cap 08/20/20 oxyCODONE HCL/ACETAMINOPHEN 1 tab PO Q12HR PRN #60 tab 08/20/20 [Percocet 5-325 mg] tiZANidine HCL [Zanaflex] 8 mg PO TID PRN #90 tab 08/20/20 Allergies Allergy/AdvReac Type Severity Reaction Status Date / Time benzalkonium chloride Allergy Severe Swelling Verified 10/20/20 21:54 duloxetine HCl AdvReac Severe severe Verified 10/20/20 21:54 [From Cymbalta] headache gabapentin [From Neurontin] AdvReac HEADACHE Verified 10/20/20 21:54 Review of Systems ROS Statement: Those systems with pertinent positive or pertinent negative responses have been documented in the HPI. ROS Other: All systems not noted in ROS Statement are negative. Past Medical History Past Medical History: GERD/Reflux, Hypertension, Thyroid Disorder Additional Past Medical History / Comment(s): HX KIDNEY STONE, CHRONIC BACK PAIN, LOW THYROID, UMBILICAL HERNIA. History of Any Multi-Drug Resistant Organisms: None Reported Past Surgical History: Appendectomy, Cholecystectomy Additional Past Surgical History / Comment(s): PAIN PROCEDURES, VASECTOMY.; multiple kidney stone removals Past Anesthesia/Blood Transfusion Reactions: No Reported Reaction Additional Past Anesthesia/Blood Transfusion Reaction / Comment(s): States needs more sedation to put me asleep. Past Psychological History: No Psychological Hx Reported Smoking Status: Former smoker - Past Family History Mother History Unknown: Yes Family Medical History: Dementia Father Additional Family Medical History / Comment(s): SMOKER. General Exam General appearance: alert Head exam: Present: atraumatic, normal inspection Eye exam: Present: normal appearance. Absent: PERRL, EOMI, scleral icterus ENT exam: Present: normal exam, mucous membranes moist Neck exam: Present: normal inspection, full ROM. Absent: tenderness Respiratory exam: Present: normal lung sounds bilaterally. Absent: respiratory distress Cardiovascular Exam: Present: regular rate, normal rhythm, normal heart sounds GI/Abdominal exam: Present: soft, normal bowel sounds. Absent: distended, tenderness, guarding, rebound, rigid Neurological exam: Present: alert Course Vital Signs 10/20/20 20:50 Temperature 98.9 F Pulse Rate 81 Respiratory 19 Rate Blood Pressure 148/87 O2 Sat by Pulse 98 Oximetry EKG Findings - EKG Comments: EKG Findings:: Normal sinus rhythm, ventricular rate 72, AZ interval 162, QTC 429 Medical Decision Making - Medical Decision Making HPI physical exam as documented. Vitals are stable. Patient is well-appearing. Patient presents for several different symptoms after ingesting THC only. CBC CMP unremarkable. There is evidence of chronic renal disease. Troponin 0.027. This is likely secondary to chronic renal disease. EKG is nonischemic. Chest x-ray shows no active cardiopulmonary disease. Patient was monitored and 3 hour troponin was repeated and is the same. It has not increased. At this time patient will be discharged home to follow up with primary care. He'll return here for any worsening symptoms. - Lab Data Result diagrams: 10/20/20 21:40 10/20/20 21:40 Lab Results 10/20/20 10/20/20 10/20/20 Range/Units 21:40 21:40 21:40 WBC 9.4 (3.8-10.6) k/uL RBC 5.62 (4.30-5.90) m/uL Hgb 16.8 (13.0-17.5) gm/dL Hct 50.0 (39.0-53.0) % MCV 89.1 (80.0-100.0) fL MCH 29.8 (25.0-35.0) pg MCHC 33.5 (31.0-37.0) g/dL RDW 13.0 (11.5-15.5) % Plt Count 218 (150-450) k/uL MPV 8.7 Neutrophils % 80 % Lymphocytes % 10 % Monocytes % 6 % Eosinophils % 2 % Basophils % 1 % Neutrophils # 7.5 (1.3-7.7) k/uL Lymphocytes # 0.9 L (1.0-4.8) k/uL Monocytes # 0.6 (0-1.0) k/uL Eosinophils # 0.2 (0-0.7) k/uL Basophils # 0.1 (0-0.2) k/uL PT 10.7 (9.0-12.0) sec INR 1.0 (<1.2) APTT 23.0 (22.0-30.0) sec Sodium 135 L (137-145) mmol/L Potassium 4.0 (3.5-5.1) mmol/L Chloride 99 (98-107) mmol/L Carbon Dioxide 30 (22-30) mmol/L Anion Gap 6 mmol/L BUN 16 (9-20) mg/dL Creatinine 1.32 H (0.66-1.25) mg/dL Est GFR (CKD-EPI)AfAm 77 (>60 ml/min/1.73 sqM) Est GFR (CKD-EPI)NonAf 66 (>60 ml/min/1.73 sqM) Glucose 161 H (74-99) mg/dL Calcium 9.3 (8.4-10.2) mg/dL Magnesium 2.1 (1.6-2.3) mg/dL Total Bilirubin 0.3 (0.2-1.3) mg/dL AST 25 (17-59) U/L ALT 24 (4-49) U/L Alkaline Phosphatase 51 (38-126) U/L Troponin I (0.000-0.034) ng/mL Total Protein 7.2 (6.3-8.2) g/dL Albumin 4.2 (3.5-5.0) g/dL 10/20/20 10/21/20 Range/Units 21:40 00:06 WBC (3.8-10.6) k/uL RBC (4.30-5.90) m/uL Hgb (13.0-17.5) gm/dL Hct (39.0-53.0) % MCV (80.0-100.0) fL MCH (25.0-35.0) pg MCHC (31.0-37.0) g/dL RDW (11.5-15.5) % Plt Count (150-450) k/uL MPV Neutrophils % % Lymphocytes % % Monocytes % % Eosinophils % % Basophils % % Neutrophils # (1.3-7.7) k/uL Lymphocytes # (1.0-4.8) k/uL Monocytes # (0-1.0) k/uL Eosinophils # (0-0.7) k/uL Basophils # (0-0.2) k/uL PT (9.0-12.0) sec INR (<1.2) APTT (22.0-30.0) sec Sodium (137-145) mmol/L Potassium (3.5-5.1) mmol/L Chloride (98-107) mmol/L Carbon Dioxide (22-30) mmol/L Anion Gap mmol/L BUN (9-20) mg/dL Creatinine (0.66-1.25) mg/dL Est GFR (CKD-EPI)AfAm (>60 ml/min/1.73 sqM) Est GFR (CKD-EPI)NonAf (>60 ml/min/1.73 sqM) Glucose (74-99) mg/dL Calcium (8.4-10.2) mg/dL Magnesium (1.6-2.3) mg/dL Total Bilirubin (0.2-1.3) mg/dL AST (17-59) U/L ALT (4-49) U/L Alkaline Phosphatase (38-126) U/L Troponin I 0.027 0.027 (0.000-0.034) ng/mL Total Protein (6.3-8.2) g/dL Albumin (3.5-5.0) g/dL Disposition Clinical Impression: Nausea Disposition: HOME SELF-CARE Condition: Good Instructions (If sedation given, give patient instructions): Acute Nausea and Vomiting (ED) Additional Instructions: Please follow-up with your doctor in one to 2 days. Return to the emergency r oom for any worsening symptoms. Is patient prescribed a controlled substance at d/c from ED?: No Referrals: Ryan Loving Jr, [Primary Care Provider] - 1-2 days Time of Disposition: 00:43
[2020-10-20] MEDS ORDERED: SODIUM CHLORIDE 0.9% 500 ML 500 ML IV STA (21:25)
[2020-10-20] MEDS ORDERED: ASPIRIN 81 MG PO STA (21:25)
--- NOTE | 2020-10-20 21:44 | XR ---
EXAMINATION TYPE: XR chest 2V DATE OF EXAM: 10/20/2020 COMPARISON: 01/26/2019 HISTORY: Chest pain TECHNIQUE: 2 views FINDINGS: Heart and mediastinum are normal. Lungs are clear of infiltrate. There is no heart failure. There are no hilar masses. Bony thorax is intact. IMPRESSION: No active cardiopulmonary disease. Normal heart. No change.
[2020-10-20 21:52] LABS: Basophils # (A) 0.1 k/uL (0-0.2); Basophils % (A) 1 %; Eosinophils # (A) 0.2 k/uL (0-0.7); Eosinophils % (A) 2 %; HGB 16.8 gm/dL (13.0-17.5); Lymphocytes # (A) 0.9 k/uL (1.0-4.8); Lymphocytes % (A) 10 %; MCH 29.8 pg (25.0-35.0); MCHC 33.5 g/dL (31.0-37.0); MCV 89.1 fL (80.0-100.0); Mean Platelet Volume 8.7; Monocytes # (A) 0.6 k/uL (0-1.0); Monocytes % (A) 6 %; Neutrophils # (A) 7.5 k/uL (1.3-7.7); Neutrophils % (A) 80 %; Platelet Count 218 k/uL (150-450); RBC 5.62 m/uL (4.30-5.90); WBC 9.4 k/uL (3.8-10.6)
[2020-10-20 22:05] LABS: Albumin 4.2 g/dL (3.5-5.0); Calcium 9.3 mg/dL (8.4-10.2); Magnesium 2.1 mg/dL (1.6-2.3); Total Bilirubin 0.3 mg/dL (0.2-1.3); Total Protein 7.2 g/dL (6.3-8.2)
[2020-10-20 22:06] LABS: Prothrombin Time 10.7 sec (9.0-12.0)
[2020-10-20] MEDS ORDERED: METOCLOPRAMIDE 5 MG/ML 2 ML VIAL IVP STA (22:48)
[2020-10-21 00:52] VITALS: BP 116/54; PULSE 71; RESP 18; TEMP 98
== END 2020-10-21 00:52 | disposition home or self-care (01) ==
LOC: EC 20:44
DX: R11.0 Nausea (principal); R51.9 Headache, unspecified; M54.9 Dorsalgia, unspecified; R07.9 Chest pain, unspecified; K21.9 Gastro-esophageal reflux disease without esophagitis; I10 Essential (primary) hypertension; E07.9 Disorder of thyroid, unspecified; Z79.890 Hormone replacement therapy; Z79.899 Other long term (current) drug therapy; Z88.8 Allergy status to other drugs, medicaments and biological substances; Z87.891 Personal history of nicotine dependence; Z90.49 Acquired absence of other specified parts of digestive tract
CPT/HCPCS: 36415; 93005; 80053; 83735; 84484; 85025; 85610; 85730; 71046; 99284; 96374; 96361; J2765

== ENCOUNTER → 2020-11-05 | Outpatient (CLI) | payer OTHER ==
[2020-11-05 08:44] VITALS: BP 133/82; PULSE 86; RESP 16; TEMP 98.1
--- NOTE | 2020-11-05 08:53 | P.PN ---
Subjective Progress Note Date: 11/05/20 This is a 40-year-old gentleman with history of chronic lower back pain with occasional radiation down the right leg. The patient has an exacerbation of his lower back pain with radiation to the right knee with occasional numbness and tingling in the right leg. His pain is more intense than his lower back area though. The patient takes Percocet 5 mg twice a day plus Zanaflex and Lyrica. He responds well to interventional pain procedures especially RFA of the lumbar medial branches. The patient's family physician who recommended that he starts a trial of marijuana and doing himself off the Percocet. The patient is still debating this option. Patient denies new-onset weakness, bowel/bladder incontinence, or any other signs or symptoms of cauda equina syndrome. There are no signs of acute intoxication, and no indications of medication diversion or overuse. In addition to above, 13-point review of systems is also negative for chest pain, shortness of breath, changes in vision, changes in hearing, new onset weakness, abdominal pain, diarrhea, extreme fatigue, malaise, fever, skin changes, homicidal or suicidal ideation, or bowel or bladder incontinence. Vital Signs: Reviewed in EMR Gen: AAOx3, NAD HEENT: PERRLA,hearing grossly normal Pulm: resp unlabored Neck: supple, trachea midline Neuro exam of the lower extremities: Straight leg raising test: Negative bilaterally Gonzalez's test: Positive on the right side Range of motion of the lumbar spine: Facet loading test: Tenderness in the paravertebral musculature: Significant tenderness around the right sacroiliac joint and also in the lumbar paravertebral musculature on the right side Neuro: CN II-XII grossly intact, Imaging: Reviewed in EMR/chart Assessment: Lumbar DDD Right sacroiliitis Lumbar spondylosis without myelopathy History of right lumbar radiculopathy Opioid dependence Plan: 1. Explanation: Opioid and psychological risk scores were reviewed. Diagnoses, prognoses, and multiple treatment options including but not limited to physical therapy, interventional therapies, adjuvant medical therapies, narcotic medication therapies, and surgery were discussed with the patient and all questions were answered to the patient's satisfaction. 2. Opioid agreement: Signed with the patient and the patient is warned not to use opioids while driving or before driving and not to combine opioids with benzodiazepines or alcohol. 3. Counseling: The patient was counseled extensively on SMOKING CESSATION, BODY MASS INDEX, EXERCISE. Specifically, the patient was instructed regarding the importance of smoking cessation, obesity, and exercise in the context of both c hronic pain and overall health. 4. Procedures: Schedule her right sacroiliac joint steroid injection 5. Consultations: None 6. Investigations: None 7. Medications: Continue Percocet 5 mg twice a day #60 pills with 1 refills, Lyrica 50 mg twice a day #60 pills with 1 refills and Zanaflex 8 mg 3 times a day #90 pills with 1 refill 8. Disposition: The patient understands that if he wants to try marijuana wouldn't have to stop prescribing Percocet and he can try to a month or 2 and then if that works for him to continue with that and if it doesn't then he can come back to our clinic and if any tumor can resume his Percocet prescription. I encouraged the patient to come off opioids in general if possible in the near future. 9. Maps were reviewed and were appropriate. Controlled Substance Measures Is patient prescribed a controlled substance at discharge?: Yes When asked, does pt state using other controlled substances?: No If prescribed controlled substance>3 days was MAPS reviewed?: Yes If Rx opioid, was Start Talking consent form obtained?: Yes If opioid is for acute pain is fill amount 7 days or less?: No Was information provided regarding opioid addiction?: Yes Objective - Vital Signs Vital signs: Vital Signs Temp 98.1 F 11/05/20 08:39 Pulse 86 11/05/20 08:39 Resp 16 11/05/20 08:39 BP 133/82 11/05/20 08:39 Pulse Ox 96 11/05/20 08:39
== END | disposition home or self-care (01) ==
LOC: PNWHC3 08:27
PROVIDERS: ATTEND Anesthesiology
DX: Z53.9 Procedure and treatment not carried out, unspecified reason (principal)

== ENCOUNTER 2020-11-27 06:25 | Day surgery (SDC) | payer OTHER ==
[2020-11-26 09:28] VITALS: BMI 32.8
[2020-11-27 06:39] VITALS: TEMP 98.8
[2020-11-27] MEDS ORDERED: LACTATED RINGERS 1,000 ML IV ONE (06:40)
[2020-11-27] MEDS ORDERED: LIDOCAINE 1% (10MG/ML) FOR IV START INTRADERMA ONE (06:41)
[2020-11-27] MEDS ORDERED: ONDANSETRON 4 MG/2 ML VIAL ONE (06:43)
[2020-11-27] MEDS ORDERED: ONDANSETRON 4 MG/2 ML VIAL IVP ONE (06:44)
[2020-11-27] MEDS ORDERED: fentaNYL (PF) 50 MCG/ML 2 ML AMP ONE (06:54)
[2020-11-27] MEDS ORDERED: TRIAMCINOLONE ACETONIDE 40 MG/ML 1 ML VIAL ONE (06:54)
[2020-11-27] MEDS ORDERED: ROPIVACAINE 5MG/ML 20ML VIAL ONE (06:54)
[2020-11-27] MEDS ORDERED: IOPAMIDOL M200 10 ML VIAL ONE (06:54)
[2020-11-27] MEDS ORDERED: MIDAZOLAM 2 MG/2 ML VIAL ONE (06:54)
--- NOTE | 2020-11-27 07:10 | P.PCN ---
Date of Procedure: 11/27/20 Description of Procedure: Preoperative diagnoses= sacroiliac joint dysfunction and sacroiliitis on the right side Postoperative diagnoses= same as preoperative diagnosis. Procedure= sacroiliac joint steroid injection under fluoroscopic guidance. Anesthesia= local anesthesia with lidocaine 1% and IV moderate conscious sedation with fentanyl and Versed sedation time 10 minutes Estimated blood loss=minimal. Procedure indication= the patient had a history of severe chronic low back pain, diagnosed with sacroiliitis and lumbar sacral facet arthropathy unresponsive to conservative treatment. Procedure description= the patient was seen and identified in the preoperative holding area, risks and benefits and alternative of the procedure and possible complications discussed with the patient, patient signed the consent. an IV was started, and vital signs were monitored and were stable throughout the procedure, patient was placed in the prone position or table and the lumbosacral area was prepped and draped with a sterile fashion, vital signs were closely monitored during the procedure.The sacroiliac joint was identified on the AP view of fluoroscopy then the C-arm was tilted to the contralateral oblique position to superimpose the anterior and posterior joint lines on each other and to have a unified joint line with the target point at the inferior one third of this line. I used 22-gauge 3-1/2 inch Quincke spinal needle for this procedure and after getting into the sacroiliac joint I injected 40 mg of Kenalog +1 MLS of Ropivacaine 0.5%. Patient tolerated the procedure well without any complication, The patient returned to supine position after the back was cleaned and a Band- Aid applied, the patient transported to recovery room in stable condition and he was monitored for 30 minutes before she was discharged home in stable condition . patient will follow up with the pain clinic in a few weeks. A copy of the needle placement was saved to the C-arm machine.
[2020-11-27] MEDS ORDERED: LACTATED RINGERS 600 ML IV ONE (07:14)
[2020-11-27] MEDS ORDERED: IV FLUID CONTINUATION 600 ML IV ONE (07:14)
[2020-11-27 07:20] VITALS: RESP 20
[2020-11-27 07:35] VITALS: BP 131/78; PULSE 68
--- NOTE | 2020-11-27 10:08 | FL ---
EXAMINATION TYPE: FL guided pain mgmt statistic DATE OF EXAM: 11/27/2020 HISTORY: Fluoroscopy time 9 seconds of fluoroscopy provided. IMPRESSION: 1. Fluoroscopy time.
== END 2020-11-27 08:55 | disposition home or self-care (01) ==
LOC: ORPAIN 06:25
PROVIDERS: ATTEND Anesthesiology
DX: G89.29 Other chronic pain (principal); M53.3 Sacrococcygeal disorders, not elsewhere classified; M46.1 Sacroiliitis, not elsewhere classified; M47.817 Spondylosis without myelopathy or radiculopathy, lumbosacral region; Z88.8 Allergy status to other drugs, medicaments and biological substances
CPT/HCPCS: J2250; J3301; J2405; J3010; Q9966; J2795; G0260; 27096; 99152

== ENCOUNTER → 2020-12-31 | Outpatient (CLI) | payer OTHER ==
[2020-12-31 08:50] VITALS: BP 123/85; PULSE 82; RESP 16; TEMP 97.9
--- NOTE | 2020-12-31 08:59 | P.PN ---
Subjective Progress Note Date: 12/31/20 This is a 40-year-old gentleman with history of chronic lower back pain with occasional radiation down the legs bilaterally and occasional numbness and tingling. The patient had sacroiliac joint steroid injection which gave her at least 80% of pain relief which lasted for 6 weeks. The patient has been al ternating these injections with lumbar medial branch RFA every 6 months which also give him at least 80% of pain relief. He still takes Percocet 5 mg twice a day, Zanaflex and Lyrica 50 mg twice a day. The patient decided against using marijuana as treatment for his pain. The patient also complains of lateral left elbow pain that has been there for couple of months now. Patient denies new-onset weakness, bowel/bladder incontinence, or any other signs or symptoms of cauda equina syndrome. There are no signs of acute intoxication, and no indications of medication diversion or overuse. In addition to above, 13-point review of systems is also negative for chest pain, shortness of breath, changes in vision, changes in hearing, new onset weakness, abdominal pain, diarrhea, extreme fatigue, malaise, fever, skin changes, homicidal or suicidal ideation, or bowel or bladder incontinence. Vital Signs: Reviewed in EMR Gen: AAOx3, NAD HEENT: PERRLA,hearing grossly normal Pulm: resp unlabored Neck: supple, trachea midline Neuro exam of the lower extremities: Normal muscle strength bilaterally Straight leg raising test: Gonzalez's test: Range of motion of the lumbar spine: Facet loading test: Tenderness in the paravertebral musculature: Positive in the lumbar area bilaterally Neuro: CN II-XII grossly intact, Postoperative tenderness around the lateral elbow epicondyles on the left side Imaging: Reviewed in EMR/chart Assessment: Lumbar spondylosis without myelopathy Lumbar DDD Opioid dependence Lateral humeral epicondylitis Plan: 1. Explanation: Opioid and psychological risk scores were reviewed. Diagnoses, prognoses, and multiple treatment options including but not limited to physical therapy, interventional therapies, adjuvant medical therapies, narcotic medication therapies, and surgery were discussed with the patient and all questions were answered to the patient's satisfaction. 2. Opioid agreement: Signed with the patient and the patient is warned not to use opioids while driving or before driving and not to combine opioids with benzodiazepines or alcohol. 3. Counseling: The patient was counseled extensively on SMOKING CESSATION, BODY MASS INDEX, EXERCISE. Specifically, the patient was instructed regarding the importance of smoking cessation, obesity, and exercise in the context of both chronic pain and overall health. 4. Procedures: Scheduled for right lumbar medial branch RFA under fluoroscopic guidance for levels L3 4, L4-L5, and L5-S1 and then we'll schedule for the left side in couple of weeks. Schedule for left lateral femoral condyle steroid injection. 5. Consultations: None 6. Investigations: None 7. Medications: Continue Percocet 5 mg twice a day, Zanaflex 8 mg 3 times a day, and Lyrica 50 mg twice a day 8. Disposition: Return to the above-mentioned procedure as soon as possible and to the clinic clinic in 8 weeks 9. Maps were reviewed and were appropriate. Controlled Substance Measures Is patient prescribed a controlled substance at discharge?: Yes When asked, does pt state using other controlled substances?: No If prescribed controlled substance>3 days was MAPS reviewed?: Yes If Rx opioid, was Start Talking consent form obtained?: Yes If opioid is for acute pain is fill amount 7 days or less?: No Was information provided regarding opioid addiction?: Yes Objective - Vital Signs Vital signs: Vital Signs Temp 97.9 F 12/31/20 08:48 Pulse 82 12/31/20 08:48 Resp 16 12/31/20 08:48 BP 123/85 12/31/20 08:48 Pulse Ox 97 12/31/20 08:48
== END ==
LOC: PNWHC3 08:36
PROVIDERS: ATTEND Anesthesiology
DX: M47.816 Spondylosis without myelopathy or radiculopathy, lumbar region (principal); M51.36 Other intervertebral disc degeneration, lumbar region; M77.10 Lateral epicondylitis, unspecified elbow; F11.20 Opioid dependence, uncomplicated
CPT/HCPCS: 80307; G0482; G0463; 99212

== ENCOUNTER 2021-01-18 08:03 | Day surgery (SDC) | payer OTHER ==
[2021-01-14 16:12] VITALS: BMI 32.8
[~2021-01-18 08:03] MED LIST changes: +LACTATED RINGERS 1,000 ML IV SCH; -SODIUM CHLORIDE 0.9% 500 ML 500 ML in EMPTY BAG 1 BAG IV PRN
[2021-01-18] MEDS ORDERED: ONDANSETRON 4 MG/2 ML VIAL ONE (08:21)
[2021-01-18] MEDS ORDERED: LIDOCAINE 1% (10MG/ML) FOR IV START INTRADERMA ONE (08:28)
[2021-01-18 08:34] VITALS: RESP 16; TEMP 97.7
[2021-01-18] MEDS ORDERED: methylPREDNISolone ACETATE 40 MG/ML 1 ML VIAL ONE (08:39)
[2021-01-18] MEDS ORDERED: ROPIVACAINE 5MG/ML 20ML VIAL ONE (08:39)
[2021-01-18] MEDS ORDERED: MIDAZOLAM 2 MG/2 ML VIAL ONE (08:39)
[2021-01-18] MEDS ORDERED: fentaNYL (PF) 50 MCG/ML 2 ML AMP ONE (08:39)
--- NOTE | 2021-01-18 09:10 | P.PCN ---
Date of Procedure: 01/18/21 Procedure(s) Performed: PREOPERATIVE DIAGNOSIS: 1-Lumbar Spondylosis with Facet Arthropathy without myelopathy. 2- Lumber degenerative disc disease. 3-sacroiliitis POSTOPERATIVE DIAGNOSIS: 1- Lumbar Spondylosis with Facet Arthropathy without myelopathy. 2- Lumber degenerative disc disease. 3-sacroiliitis PROCEDURES : 1-Right Radiofrequency thermocoagulation, L3 , L4 , and L5 medial branch, with fluoroscopic guidance (fluoroscopy images available in the radiology department) ( to denervate the facet joint at L4-5 ,and L5-S1 levels ) 2-Left lateral epicondyle steroid injection ( left elbow ) 3-trigger point injection thoracic paraspinal muscles, 3 on the right side and 3 on the left side thoracic paraspinal muscles. ANESTHESIA: Monitored anesthesia care as per anesthesia department. EBL: Minimal PROCEDURE INDICATION: The patient with low back pain secondary to lumbar facet arthropathy who had more than 50% relief of her pain with previous diagnostic lumbar medial branch block with bupivacaine. PROCEDURE DESCRIPTION / TECHNIQUE: The patient was seen and identified in the preoperative area. Risks, benefits, complications, including but not limited to risk of infection ,bleeding , allergic reactions to the medications and no complete pain releife , and alternatives were discussed with the patient, the patient agreed to proceed with the procedure and signed the consent. IV was started. Vital signs remained stable throughout the procedure. Patient was taken to the OR and time out was completed. The patient was placed in the prone position on the procedure table. The lumber area was prepped and draped in the usual sterile fashion. . Vital signs were closely monitored during the procedure .IV sedation was used during the procedure to decrease patients anxiety. Using AP and then oblique fluoroscopy, the ``eye of the John dog corresponding to the connection between the superior and transverse articular processes of Right L3, L4, and L5 were identified, marked, and localized with 1% lidocaine. Subsequently, a 18 [id number] radiofrequency cannula with a 10-mm active tip was advanced guided by fluoroscopy to each of the``eyes of the John dog at Right L3, L4, and L5. Each site then underwent sensory testing at 50 Hz and 0 to 1 volt and motor testing at 2.5 Hz and 0 to 3 volt with local stimulation, but no radicular symptoms down the legs. Thereafter each sites unde rwent radiofrequency thermocoagulation at 80 degrees celsius for 90 seconds after injecting 0.5 ml of PF Ropivacaine 1ml, then after the thermocoagulation done , 1 ml of the block solution containing Depo-Medrol 20 mg and 3 ml of Ropivacaine 0.5% was injected at the Right L3 , L4 , and L5 , levels after negative aspiration of CSF and blood and with no paresthesias. Cannulas were retracted while injecting lidocaine 1% until the needle is out. After that the trigger point injection done in Cerner technique 3 trigger point injected on the right side thoracic paraspinal muscles and 3 on the left side thoracic paraspinal muscles Using 25-gauge needle, each of the trigger point injected with ropivacaine 0.5% 2 mL injection done after negative aspiration under was no paresthesia during t he injection, Then after that the left lateral epichondyle area prepped with Betadine 3. Under sterile technique using 25-gauge needle, the left lateral epicondyle injected with ropivacaine 0.5% 2 mL mixed with 20 mg of Depo-Medrol, injection done after negative aspiration under was no paresthesia during the injection patient tolerated the procedure well without any complications At the end of the procedure, the skin was cleansed and bandages were applied. COMPLICATIONS: No acute complications. DISPOSITION / PLANS: The patient was placed in a supine position and transferred to the recovery area in a stable condition for observation and was discharged from the recovery room after meeting discharge criteria. Home discharge instructions given to the patient by the staff. The patient was r eexamined prior to discharge. The patient will schedule a follow up in the clinic in 2-4 weeks. He will be scheduled to have the right-sided RFA of the medial branch lumbar area
[2021-01-18] MEDS ORDERED: IV FLUID CONTINUATION 1,000 ML IV ONE (09:13)
--- NOTE | 2021-01-18 09:16 | FL ---
EXAMINATION TYPE: FL guided pain mgmt statistic DATE OF EXAM: 01/18/2021 HISTORY: Fluoroscopy time 10 seconds of fluoroscopy provided. IMPRESSION: 1. Fluoroscopy time.
--- NOTE | 2021-01-18 09:28 | P.PN ---
Progress Note - Text Progress Note Date: 01/18/21 Patient complaining of severe muscle spasm in the thoracic paraspinal muscles, and he is currently on Zanaflex 4 mg every 8 hours he reported the current muscle relaxant is not helping to control his muscle spasm, patient could benefit from Flexeril 10 mg 3 times a day and we will discontinue Zanaflex
[2021-01-18 09:29] VITALS: BP 104/64; PULSE 67
--- NOTE | 2021-02-01 05:52 | CDI ---
Outpatient Documentation Clarification Form Date: 02/01/21 CDS/Inside Sales Assistant Name: Chyna Christensen Phone: If any questions, call Gloria Herrera Horse Groomer at [phone] Patient Name: Froilan Crowder Admit Date: 01/18/21 Discharge Date: 01/18/21 ATTENTION: The [facility] Coding Staff appreciate your assistance in clarifying documentation. Please respond to the clarification below the line at the bottom and electronically sign. The [facility] Coding staff will review the response and follow-up if needed. Please note: Queries are made part of the Legal Health Record. If you have any questions, please contact the Horse Groomer. Dear Dr. Martinez, Please provide clarification as to the procedures performed. For the Trigger point injections, these are code by muscles injection not trigger points. For specificity to determine medical necessity, please verify which area was injected for the trigger point: Paraspinal muscles - right and left side - one muscle three times Paraspinal muscles - right and left side - all three muscles one time each. Also on the epicondyle injection, please clarify where the needle ended prior to injection Tendon Sheath Elbow joint itself. Thank you for your kind consideration. MTDD
== END 2021-01-18 09:39 | disposition home or self-care (01) ==
LOC: ORPAIN 08:03
PROVIDERS: ATTEND Specialist
DX: M47.816 Spondylosis without myelopathy or radiculopathy, lumbar region (principal); M51.36 Other intervertebral disc degeneration, lumbar region; M46.1 Sacroiliitis, not elsewhere classified; M77.12 Lateral epicondylitis, left elbow; M54.89 Other dorsalgia; M79.18 Myalgia, other site; M62.830 Muscle spasm of back; Z88.8 Allergy status to other drugs, medicaments and biological substances
CPT/HCPCS: 64635; 20550; 20552; 64636; 20605; J2250; J1030; J2405; J3010; J2795; 20553

== ENCOUNTER 2021-01-21 14:28 | Emergency (ER) | payer OTHER ==
[2021-01-21 15:21] VITALS: TEMP 97.9
[2021-01-21 16:32] LABS: Basophils % (A) 1 %; Eosinophils # (A) 0.1 k/uL (0-0.7); Eosinophils % (A) 1 %; HCT 52.5 % (39.0-53.0); HGB 18.4 gm/dL (13.0-17.5); Lymphocytes # (A) 1.4 k/uL (1.0-4.8); Lymphocytes % (A) 15 %; MCH 31.4 pg (25.0-35.0); MCV 89.8 fL (80.0-100.0); Mean Platelet Volume 8.8; Monocytes # (A) 0.8 k/uL (0-1.0); Monocytes % (A) 8 %; Neutrophils # (A) 6.8 k/uL (1.3-7.7); Neutrophils % (A) 73 %; Platelet Count 209 k/uL (150-450); RBC 5.85 m/uL (4.30-5.90); RDW 13.3 % (11.5-15.5); WBC 9.2 k/uL (3.8-10.6)
[2021-01-21 16:54] LABS: Appearance,Urine Clear (Clear); Bilirubin,Urine Negative (Negative); Blood,Urine Trace (Negative); Color,Urine Yellow; Glucose,Urine (UA) Negative (Negative); Ketones,Urine Negative (Negative); Leukocyte Esterase,Urine Negative (Negative); Mucus,Urine Rare /hpf; Nitrite,Urine Negative (Negative); Protein,Urine Negative (Negative); RBC,Urine 1 /hpf (0-5); Specific Gravity,Urine 1.011 (1.001-1.035); Squamous Epithelial Cell,Urine <1 /hpf (0-4); Urobilinogen,Urine <2.0 mg/dL (<2.0); WBC,Urine 1 /hpf (0-5)
[2021-01-21 16:55] LABS: Albumin 4.7 g/dL (3.5-5.0); Calcium 9.8 mg/dL (8.4-10.2); Total Bilirubin 0.7 mg/dL (0.2-1.3); Total Protein 7.6 g/dL (6.3-8.2)
[2021-01-21] MEDS ORDERED: MORPHINE SULFATE 4 MG/ML SYRINGE IVP STA (17:51)
[2021-01-21] MEDS ORDERED: KETOROLAC 15 MG/ML 1 ML VIAL IVP STA (17:51)
[2021-01-21] MEDS ORDERED: ONDANSETRON 4 MG/2 ML VIAL IVP STA (17:51)
[2021-01-21] MEDS ORDERED: SODIUM CHLORIDE 0.9% 2,000 ML IV STA (17:51)
--- NOTE | 2021-01-21 17:55 | ED ---
Abdominal Pain HPI - General Chief Complaint: Abdominal Pain Stated Complaint: ABD pain Time Seen by Provider: 01/21/21 17:43 Source: patient, RN notes reviewed Mode of arrival: ambulatory Limitations: no limitations - History of Present Illness Initial Comments: Patient is a 41-year-old male that presents to emergency department complaining of lower abdominal pain. He notes that he does have a history of many kidney stones in the past. He notes that all the stones have presented was slightly different symptoms. He did note that he was mildly nauseous on the waiting room. He stated that the pain began about 2:30 this morning with no relief from at home medications or remedies. He said the pain was approximately an 8 out of 10 unrelieved constant with no real aggravating or alleviating factors. She notes that in the past IV fluids and pain medication have helped and passed the stones. He was in no apparent distress or pain while sitting up in bed during exam and interview. He denied any chest pain shortness of breath headache vomiting diarrhea constipation fever fatigue chills. - Related Data Home Medications Medication Instructions Recorded Confirmed Testosterone Cypionate 160 mg IM Q72H 01/26/19 01/18/21 [Depo-Testosterone] lisinopriL [Zestril] 10 mg PO BID 01/26/19 01/18/21 Acetaminophen Tab [Tylenol] 650 mg PO Q6H PRN 04/29/19 01/18/21 amLODIPine [Norvasc] 5 mg PO DAILY 04/29/19 01/18/21 Albuterol Sulfate [Ventolin HFA] 1 - 2 puff INHALATION RT-QID PRN 10/20/20 01/18/21 L.acidoph,Paracasei, B.lactis 1 cap PO DAILY 10/20/20 01/18/21 [Probiotic] Sildenafil Citrate [Sildenafil] 20 mg PO DAILY PRN 10/20/20 01/18/21 Levothyroxine Sodium [Synthroid] 100 mcg PO DAILY 11/01/20 01/18/21 Previous Rx's Medication Instructions Recorded Pregabalin [Lyrica] 150 mg PO BID 30 Days #60 cap 08/20/20 oxyCODONE HCL/ACETAMINOPHEN 1 tab PO Q12HR PRN #60 tab 08/20/20 [Percocet 5-325 mg] Cyclobenzaprine [Flexeril] 10 mg PO TID 30 Days #90 tab 01/18/21 Allergies Allergy/AdvReac Type Severity Reaction Status Date / Time benzalkonium chloride Allergy Severe Swelling Verified 01/21/21 15:21 duloxetine HCl AdvReac Severe severe Verified 01/21/21 15:21 [From Cymbalta] headache gabapentin [From Neurontin] AdvReac HEADACHE Verified 01/21/21 15:21 Review of Systems ROS Statement: Those systems with pertinent positive or pertinent negative responses have been documented in the HPI. ROS Other: All systems not noted in ROS Statement are negative. Past Medical History Past Medical History: GERD/Reflux, Hypertension, Thyroid Disorder Additional Past Medical History / Comment(s): HX KIDNEY STONE, CHRONIC BACK PAIN, LOW THYROID, UMBILICAL HERNIA. History of Any Multi-Drug Resistant Organisms: None Reported Past Surgical History: Appendectomy, Cholecystectomy Additional Past Surgical History / Comment(s): PAIN PROCEDURES, VASECTOMY.; multiple kidney stone removals Past Anesthesia/Blood Transfusion Reactions: No Reported Reaction Additional Past Anesthesia/Blood Transfusion Reaction / Comment(s): States needs more sedation to put me asleep. Past Psychological History: No Psychological Hx Reported Smoking Status: Never smoker Past Alcohol Use History: None Reported Past Drug Use History: None Reported - Past Family History Mother History Unknown: Yes Family Medical History: Dementia Father Additional Family Medical History / Comment(s): SMOKER. General Exam Limitations: no limitations General appearance: alert, in no apparent distress Head exam: Present: atraumatic, normocephalic, normal inspection Eye exam: Present: normal appearance, PERRL, EOMI. Absent: scleral icterus, conjunctival injection, periorbital swelling Neck exam: Present: normal inspection. Absent: tenderness, meningismus, lymphadenopathy Respiratory exam: Present: normal lung sounds bilaterally. Absent: respiratory distress, wheezes, rales, rhonchi, stridor Cardiovascular Exam: Present: regular rate, normal rhythm, normal heart sounds. Absent: systolic murmur, diastolic murmur, rubs, gallop, clicks GI/Abdominal exam: Present: soft, tenderness (In the lower abdomen bilaterally.), normal bowel sounds. Absent: distended, guarding, rebound, rigid Extremities exam: Present: normal inspection, full ROM, normal capillary refill. Absent: tenderness, pedal edema, joint swelling, calf tenderness Neurological exam: Present: alert, oriented X3, CN II-XII intact Psychiatric exam: Present: normal affect, normal mood Skin exam: Present: warm, dry, intact, normal color. Absent: rash Course Vital Signs 01/21/21 15:18 Temperature 97.9 F Pulse Rate 72 Respiratory 17 Rate Blood Pressure 150/90 O2 Sat by Pulse 98 Oximetry Medical Decision Making - Medical Decision Making 41-year-old male complaining of lower abdominal pain, history of kidney stones. Labs, KUB, 15 mg of Toradol, 4 mg of morphine, 4 mg of Zofran, 1 L normal saline ordered. KUB negative for any acute process. Labs unremarkable. Case discussed with Dr. Null, patient can discharge home with follow-up to primary care. - Lab Data Result diagrams: 01/21/21 16:11 01/21/21 16:11 Lab Results 01/21/21 01/21/21 01/21/21 Range/Units 16:11 16:11 16:11 WBC 9.2 (3.8-10.6) k/uL RBC 5.85 (4.30-5.90) m/uL Hgb 18.4 H (13.0-17.5) gm/dL Hct 52.5 (39.0-53.0) % MCV 89.8 (80.0-100.0) fL MCH 31.4 (25.0-35.0) pg MCHC 35.0 (31.0-37.0) g/dL RDW 13.3 (11.5-15.5) % Plt Count 209 (150-450) k/uL MPV 8.8 Neutrophils % 73 % Lymphocytes % 15 % Monocytes % 8 % Eosinophils % 1 % Basophils % 1 % Neutrophils # 6.8 (1.3-7.7) k/uL Lymphocytes # 1.4 (1.0-4.8) k/uL Monocytes # 0.8 (0-1.0) k/uL Eosinophils # 0.1 (0-0.7) k/uL Basophils # 0.0 (0-0.2) k/uL Sodium 138 (137-145) mmol/L Potassium 4.0 (3.5-5.1) mmol/L Chloride 99 (98-107) mmol/L Carbon Dioxide 29 (22-30) mmol/L Anion Gap 10 mmol/L BUN 13 (9-20) mg/dL Creatinine 1.18 (0.66-1.25) mg/dL Est GFR (CKD-EPI)AfAm 87 (>60 ml/min/1.73 sqM) Est GFR (CKD-EPI)NonAf 75 (>60 ml/min/1.73 sqM) Glucose 89 (74-99) mg/dL Calcium 9.8 (8.4-10.2) mg/dL Total Bilirubin 0.7 (0.2-1.3) mg/dL AST 29 (17-59) U/L ALT 30 (4-49) U/L Alkaline Phosphatase 68 (38-126) U/L Total Protein 7.6 (6.3-8.2) g/dL Albumin 4.7 (3.5-5.0) g/dL Amylase 54 (30-110) U/L Lipase 242 (23-300) U/L Urine Color Yellow Urine Appearance Clear (Clear) Urine pH 5.0 (5.0-8.0) Ur Specific Home 1.011 (1.001-1.035) Urine Protein Negative (Negative) Urine Glucose (UA) Negative (Negative) Urine Ketones Negative (Negative) Urine Blood Trace H (Negative) Urine Nitrite Negative (Negative) Urine Bilirubin Negative (Negative) Urine Urobilinogen <2.0 (<2.0) mg/dL Ur Leukocyte Esterase Negative (Negative) Urine RBC 1 (0-5) /hpf Urine WBC 1 (0-5) /hpf Ur Squamous Epith Cells <1 (0-4) /hpf Urine Mucus Rare H (None) /hpf - Radiology Data Radiology results: report reviewed, image reviewed KUB: There is no sign of intestinal obstruction pneumoperitoneum good fecal pattern is normal. There are clips from a cholecystectomy. There are no pathological calcifications over the kidneys Disposition Clinical Impression: Nephrolithiasis Disposition: HOME SELF-CARE Condition: Stable Instructions (If sedation given, give patient instructions): Kidney Stones (ED) Additional Instructions: Please return to the Emergency Department if symptoms worsen or any other concerns. Follow-up with primary care in 3-5 days. Increase oral fluids. Take Tylenol Motrin for pain control. Is patient prescribed a controlled substance at d/c from ED?: No Referrals: Ryan Loving Jr, [Primary Care Provider] - 1-2 days Time of Disposition: 19:34
--- NOTE | 2021-01-21 18:26 | XR ---
EXAMINATION TYPE: XR KUB DATE OF EXAM: 01/21/2021 COMPARISON: 07/10/2020 HISTORY: Abdominal pain TECHNIQUE: 2 views upright FINDINGS: There is no sign of intestinal obstruction or pneumoperitoneum. Fecal pattern is normal. Th ere are clips from cholecystectomy. There are no pathologic calcifications over the kidneys. IMPRESSION: Acute abdomen. No change.
[2021-01-21 19:56] VITALS: BP 156/89; PULSE 82; RESP 18
== END 2021-01-21 19:56 | disposition home or self-care (01) ==
LOC: EC 14:28
DX: N20.0 Calculus of kidney (principal); K21.9 Gastro-esophageal reflux disease without esophagitis; I10 Essential (primary) hypertension; Z90.49 Acquired absence of other specified parts of digestive tract
CPT/HCPCS: 36415; 80053; 82150; 83690; 85025; 81001; 74018; 99284; 96374; 96375 ×2; 96361; J2270; J2405; J1885

== ENCOUNTER 2021-02-01 07:09 | Day surgery (SDC) | payer OTHER ==
[2021-01-30 13:21] VITALS: BMI 32.8
[2021-02-01 08:51] VITALS: RESP 16; TEMP 98.4
[2021-02-01] MEDS ORDERED: ONDANSETRON 4 MG/2 ML VIAL ONE (08:57)
[2021-02-01] MEDS ORDERED: LIDOCAINE 1% (10MG/ML) FOR IV START INTRADERMA ONE (08:59)
[2021-02-01] MEDS ORDERED: LACTATED RINGERS 1,000 ML IV ONE (08:59)
[2021-02-01] MEDS ORDERED: ONDANSETRON 4 MG/2 ML VIAL IVP ONE (08:59)
[2021-02-01] MEDS ORDERED: ROPIVACAINE 5MG/ML 20ML VIAL ONE (09:26)
[2021-02-01] MEDS ORDERED: TRIAMCINOLONE ACETONIDE 40 MG/ML 1 ML VIAL ONE (09:26)
[2021-02-01] MEDS ORDERED: LIDOCAINE 1% INJ 10MG/ML (20 ML MDV) ONE (09:26)
[2021-02-01] MEDS ORDERED: MIDAZOLAM 2 MG/2 ML VIAL ONE (09:26)
[2021-02-01] MEDS ORDERED: fentaNYL (PF) 50 MCG/ML 2 ML AMP ONE (09:26)
--- NOTE | 2021-02-01 09:55 | P.PCN ---
Date of Procedure: 02/01/21 Description of Procedure: PREOPERATIVE DIAGNOSIS: 1-Lumbar Spondylosis with Facet Arthropathy without myelopathy. 2- Lumbar degenerative disc disease. 3-sacroiliitis POSTOPERATIVE DIAGNOSIS: 1- Lumbar Spondylosis with Facet Arthropathy without myelopathy. 2- Lumbar degenerative disc disease. 3-sacroiliitis PROCEDURES : 1-left Radiofrequency thermocoagulation, L3 , L4 , and L5 medial branch, with fluoroscopic guidance (fluoroscopy images available in the radiology department) ( to denervate the facet joint at L4-5 ,and L5-S1 levels ) 2-Left lateral epicondyle steroid injection ( left elbow ) ANESTHESIA: Monitored anesthesia care as per anesthesia department. EBL: Minimal PROCEDURE INDICATION: The patient with low back pain secondary to lumbar facet arthropathy who had more than 50% relief of her pain with previous diagnostic lumbar medial branch block with bupivacaine. PROCEDURE DESCRIPTION / TECHNIQUE: The patient was seen and identified in the preoperative area. Risks, benefits, complications, including but not limited to risk of infection ,bleeding , allergic reactions to the medications and no complete pain releife , and alternatives were discussed with the patient, the patient agreed to proceed with the procedure and signed the consent. IV was started. Vital signs remained stable throughout the procedure. Patient was taken to the OR and time out was completed. The patient was placed in the prone position on the procedure table. The lumber area was prepped and draped in the usual sterile fashion. . Vital signs were closely monitored during the procedure .IV sedation was used during the procedure to decrease patients anxiety. Using AP and then oblique fluoroscopy, the ``eye of the John dog corresponding to the connection between the superior and transverse articular processes of left L3, L4, and L5 were identified, marked, and localized with 1% lidocaine. Subsequently, a 20 [id number] radiofrequency cannula with a 10-mm active tip was advanced guided by fluoroscopy to each of the``eyes of the John dog at left L3, L4, and L5. Each site then underwent sensory testing at 50 Hz and 0 to 1 volt and motor testing at 2.5 Hz and 0 to 3 volt with local stimulation, but no radicular symptoms down the legs. Thereafter each sites underwent radiofrequency thermocoagulation at 80 degrees celsius for 90 seconds after injecting 1ml of PF 0.5% Ropivacaine, then after the thermocoagulation done , 1 ml 3 ml of lidocaine 1% was injected at the left L3 , L4 , and L5 , levels after negative aspiration of CSF and blood and with no paresthesias. Cannulas were retracted while injecting lidocaine 1% until the needle is out. Then after that the left lateral epichondyle area prepped with Betadine 3. Under sterile technique using 25-gauge needle, the left lateral epicondyle injected with ropivacaine 0.5% 2 mL mixed with 40 mg of Kenalog, injection done after negative aspiration under was no paresthesia during the injection patient tolerated the procedure well without any complications At the end of the procedure, the skin was cleansed and bandages were applied. COMPLICATIONS: No acute complications. DISPOSITION / PLANS: The patient was placed in a supine position and transferred to the recovery area in a stable condition for observation and was discharged from the recovery room after meeting discharge criteria. Home discharge instructions given to the patient by the staff. The patient was reexamined prior to discharge. The patient will schedule a follow up in the clinic in 2-4 weeks. Patient is also having pain in the left biceps tendon area. If epicondyle injection is not helpful with his elbow pain, consider biceps tendon injection.
[2021-02-01] MEDS ORDERED: IV FLUID CONTINUATION 1,000 ML IV ONE (09:56)
[2021-02-01 10:16] VITALS: BP 113/56; PULSE 70
--- NOTE | 2021-02-01 11:38 | FL ---
Fluoroscopy HISTORY: Pain 12 seconds fluoroscopy time supplied to the referring clinician. 3 intraoperative C-arm images docum ent the procedure. See dictated report from anesthesia.
== END 2021-02-01 10:41 | disposition home or self-care (01) ==
LOC: ORPAIN 07:09
PROVIDERS: ATTEND Anesthesiology
DX: M47.816 Spondylosis without myelopathy or radiculopathy, lumbar region (principal); M51.36 Other intervertebral disc degeneration, lumbar region; M46.1 Sacroiliitis, not elsewhere classified; M77.12 Lateral epicondylitis, left elbow; I10 Essential (primary) hypertension; K21.9 Gastro-esophageal reflux disease without esophagitis; E07.9 Disorder of thyroid, unspecified; Z79.891 Long term (current) use of opiate analgesic; Z79.3 Long term (current) use of hormonal contraceptives; Z79.899 Other long term (current) drug therapy; Z88.8 Allergy status to other drugs, medicaments and biological substances
CPT/HCPCS: 20600; 64635; 64636; J2250; J3301; J2405; J2001; J3010; J2795

== ENCOUNTER → 2021-02-20 | Outpatient (CLI) | payer OTHER ==
--- NOTE | 2021-02-21 07:31 | CT ---
EXAMINATION TYPE: CT abdomen pelvis wo con DATE OF EXAM: 02/20/2021 COMPARISON: 07/10/2020 HISTORY: RT flank pain intermittent fever, hx renal stones. CT DLP: 1148 mGycm Automated exposure control for dose reduction was used. TECHNIQUE: Helical acquisition of images was performed from the lung bases through the pelvis. Study is limited due to lack of intravenous contrast. Oral contrast was used. Sagittal and coronal reconstruction was performed. FINDINGS: LUNG BASES: No significant abnormality is appreciated. LIVER/GB: No significant abnormality is appreciated. PANCREAS: No significant abnormality is seen. SPLEEN: No significant abnormality is seen. ADRENALS: No significant abnormality is seen. KIDNEYS: No significant abnormality is seen. FREE AIR: No free air is visualized RETROPERITONEAL ADENOPATHY: None visualized REPRODUCTIVE ORGANS: No significant abnormality is seen URINARY BLADDER: No significant abnormality is seen. PELVIC ADENOPATHY: None visualized. OSSEOUS STRUCTURES: No significant abnormality is seen. BOWEL: No significant abnormality is seen. IMPRESSION: NO EVIDENCE OF APPENDICITIS OR INGUINAL HERNIA. Etiology for patient's symptoms unclear.
== END | disposition home or self-care (01) ==
LOC: RADCTMAIN 15:10
PROVIDERS: ATTEND Family Medicine
DX: R10.9 Unspecified abdominal pain (principal)
CPT/HCPCS: 74176

== ENCOUNTER → 2021-02-25 | Outpatient (CLI) | payer OTHER ==
[2021-02-25 08:29] VITALS: BP 119/77; PULSE 90; RESP 18; TEMP 98.7
--- NOTE | 2021-02-25 09:03 | P.PN ---
Subjective Progress Note Date: 02/25/21 This is follow-up visit for this 40 years old male with chronic history of severe low back pain,he is diagnosed with lumbar spondylosis with lumbar facet arthropathy ,and lumbar degenerative disc disease, and bilateral sacroiliitis, few weeks ago we have done radiofrequency thermocoagulation of the median branch lumbar area, patient get excellent pain relief, patient continued to use flexeril 10 mg 3 times a day and Lyrica 150 mg twice a day, patient also uses oxycodone 5 mg every 8 hours when necessary, ( patient reports he had side effects from the Flexeril giving him ED )he denies any excessive drowsiness or sleepiness and he continued to have severe low back pain mostly in the buttock area right side, denies any motor or sensory deficit he denies any fever or night sweats Physical Examinations : -Constitutiona : Cooperative , not in acute distress . -HEENT : nech : supple , no Lymphadenopathy , normal thyroid size . : eyes : no ptosis , no icterus, no photophobia . - neurologic : Cranial nerve II to XII intact , no focal neurological deffecit . -psychatric : alert , oriented X 3 , appropriate affect , intact judgment and insight . -Lymphatic : no Lymphadenopathy . - musculoskeltal : Lumber spine moter stegnth lower extremities ,thigh and legs 5/5 Right side , 5/5 Left side deep tendon reflexes : normal Knee Jerk , normal ankle Jerk lumber facet Loading Test =positive Right , positive Left Range of motion of the lumbar spine Flexion 30 degrees, extension 10 degrees strait leg raising test = positive at 45 degree Fabere test= positive Right , and positive LT . Sever tenderness over the Sacroiliac joint on the Right . Gaenslen test= positive right . Seated flexion test= positive right . Distraction test= positive right Sacroiliac compression test= positive right Assessment and plan= chronic low back pain secondary to lumbar degenerative disc disease , lumbar spondylosis with lumbar facet arthropathy . And sacroiliitis, elbow pain He did not benefit from left elbow steroid injection chronic and current use of high-risk medication (opioids) Patient denies any side effects of the current pain medication and the current treatment/medication helping the patient to do activity of daily living , Diagnoses, prognosis, treatment options, including but not limited to physical therapy, medication management, interventional therapies, and surgery, were discussed with the patient All the questions answered The narcotic consent was signed and patient agreed and understood the side effects and complications of opioid treatment. Patient signed the narcotic agreement, and was orally counseled, not to overuse, not to abuse, not to Divert , not tp sell pain medication, and to take it as prescribed only, Patient was counseled not to drive or operate heavy equipment while using narcotic medication, and advised not to use alcohol or any Illicit drugs while using the narcotis. understanding that lack of compliance with any of the above instructions, will likely to cause discharge from, the pain service, not to renew his narcotic prescriptions [facility] Reviwed and it was apropriate . Urine drug screen ordered Medication managements= patient will be given prescription refills for Lyrica 150 mg twice a day , discontinue oxycodone I will start patient on Percocet 5/325 every 12 hours when necessary dispense 60 with 1 refill Patient will be started on Robaxin- 750 3 times a day when necessary, discontinue Flexeril (SE ERectile dysfunction ) Sherryinkel benefit from right side sacroiliac joint steroid injection under fluoroscopy guidance Description continued to have left elbow pain he will be referred for orthopedic surgery for evaluation note = urine drug screen was ok PQRS= - Patient's medications are documented in the chart. -Tobacco use is negative and counseling.Given. -Patient's has not received pneumococcal vaccine. -Advanced care planning discussed, patient not eligible. -Opiate contract signed. -Pain positive and follow-up visit/procedure is scheduled. -Patient's blood pressure measured [ 119/77 ] , and documented in the record ,and patient will follow up with the primary care. -Patient's weight was measured and body mass index [32.9 ] above the,within the normal limits and counseling was done. and patient instructed to follow-up with the primary care physician. -Patient was not identified as an unhealthy alcohol user Time with Patient: Less than 30 Objective - Vital Signs Vital signs: Vital Signs Temp 98.7 F 02/25/21 08:22 Pulse 90 02/25/21 08:22 Resp 18 02/25/21 08:22 BP 119/77 02/25/21 08:22 Pulse Ox 97 02/25/21 08:22
== END ==
LOC: PNWHC3 08:00
PROVIDERS: ATTEND Specialist
DX: M51.36 Other intervertebral disc degeneration, lumbar region (principal); M47.816 Spondylosis without myelopathy or radiculopathy, lumbar region; G89.29 Other chronic pain; M46.1 Sacroiliitis, not elsewhere classified; M25.529 Pain in unspecified elbow; Z79.891 Long term (current) use of opiate analgesic; Z88.6 Allergy status to analgesic agent; Z88.8 Allergy status to other drugs, medicaments and biological substances
CPT/HCPCS: 99211

== ENCOUNTER 2021-03-14 06:00 | Day surgery (SDC) | payer OTHER ==
[2021-03-13 09:08] VITALS: BMI 33.0
[2021-03-14] MEDS ORDERED: ONDANSETRON 4 MG/2 ML VIAL ONE (06:20)
[2021-03-14 06:26] VITALS: TEMP 97.3
[2021-03-14] MEDS ORDERED: ONDANSETRON 4 MG/2 ML VIAL IVP ONE (06:27)
[2021-03-14] MEDS ORDERED: MIDAZOLAM 2 MG/2 ML VIAL ONE (07:25)
[2021-03-14] MEDS ORDERED: methylPREDNISolone ACETATE 40 MG/ML 1 ML VIAL ONE (07:25)
[2021-03-14] MEDS ORDERED: ROPIVACAINE 5MG/ML 20ML VIAL ONE (07:25)
[2021-03-14] MEDS ORDERED: fentaNYL (PF) 50 MCG/ML 2 ML AMP ONE (07:25)
--- NOTE | 2021-03-14 07:36 | P.PCN ---
Date of Procedure: 03/14/21 Procedure(s) Performed: Procedure= Right sacroiliac joints steroid injection under fluoroscopy guidance (fluoroscopy image stored on file in the radiology Department ) Preoperative diagnosis= 1-sacroiliitis 2-lumbosacral spondylosis with lumbar facet arthropathy Postoperative diagnosis=Same as preop Diagnosis . Complication = none Condition= stable Anesthesia= moderate sedation with intravenous Versed 2 mg , and fentanyl 100 micrograms . Indication for the procedure= patient complaining of low back pain , examination was positive for severe tenderness over the sacroiliac joints bilaterally and patient diagnosed with sacroiliitis, for this reason he was good candidate for sacroiliac joint steroid injection. Description of the procedure= procedure risk and benefits discussed with the patient, including but not limited, risk of infection and bleeding, and ALLERGIC reaction to the medication and not complete pain relief and patient agreed with the preceding patient taken to the operating room, placed in prone position or standard monitors applied to the patient then after induction of anesthesia back prepped with chlorhexidine 3 times , Then under strict sterile technique, I did the right sacroiliac joint the which was identified under fluoroscopy guidance been local infiltration of the skin and subcu interstitial with lidocaine 1% then 22-gauge Quincke Needle advanced slowly under fluoroscopy and placed in the right sacroiliac joint needle placement confirmed with AP and oblique and lateral view and after appropriate needle placement confirmed and after negative aspiration, or heme , then Ropivacaine 0.5% 4 mL, and 40 mg of Depo-Medrol mixed together and injected in the right sacroiliac joint after negative aspiration patient tolerated the procedure well without any complication.
[2021-03-14] MEDS ORDERED: IV FLUID CONTINUATION 1,000 ML IV ONE (07:40)
[2021-03-14 07:43] VITALS: RESP 14
[2021-03-14 07:56] VITALS: BP 105/71; PULSE 70
--- NOTE | 2021-03-14 11:18 | FL ---
EXAMINATION TYPE: FL guided pain mgmt statistic DATE OF EXAM: 03/14/2021 HISTORY: Fluoroscopy time 3 seconds of fluoroscopy provided. IMPRESSION: 1. Fluoroscopy time.
== END 2021-03-14 08:14 | disposition home or self-care (01) ==
LOC: ORPAIN 06:00
PROVIDERS: ATTEND Specialist
DX: M47.817 Spondylosis without myelopathy or radiculopathy, lumbosacral region (principal); M46.1 Sacroiliitis, not elsewhere classified; Z88.8 Allergy status to other drugs, medicaments and biological substances
CPT/HCPCS: J2250; J1030; J2405; J3010; J2795; G0260; 27096

== ENCOUNTER 2021-04-03 18:20 | Emergency (ER) | payer OTHER ==
[2021-04-03] MEDS ORDERED: ACETAMINOPHEN TAB 500 MG TAB PO STA (19:53)
[2021-04-03] MEDS ORDERED: KETOROLAC 15 MG/ML 1 ML VIAL IVP STA (19:54)
[2021-04-03] MEDS ORDERED: SODIUM CHLORIDE 0.9% 500 ML 500 ML IV ONE (19:54)
[2021-04-03] MEDS ORDERED: SODIUM CHLORIDE 0.9% 1,000 ML IV ONE (19:54)
[2021-04-03 20:55] LABS: Basophils % (A) 0 %; Eosinophils # (A) 0.2 k/uL (0-0.7); Eosinophils % (A) 1 %; HCT 39.6 % (39.0-53.0); HGB 13.2 gm/dL (13.0-17.5); Lymphocytes # (A) 0.5 k/uL (1.0-4.8); Lymphocytes % (A) 4 %; MCH 29.6 pg (25.0-35.0); MCHC 33.4 g/dL (31.0-37.0); MCV 88.6 fL (80.0-100.0); Monocytes # (A) 0.9 k/uL (0-1.0); Monocytes % (A) 6 %; Neutrophils # (A) 11.8 k/uL (1.3-7.7); Neutrophils % (A) 88 %; Platelet Count 224 k/uL (150-450); RBC 4.46 m/uL (4.30-5.90); RDW 13.2 % (11.5-15.5); WBC 13.5 k/uL (3.8-10.6)
[2021-04-03 20:59] LABS: Albumin 4.4 g/dL (3.5-5.0); Potassium 4.1 mmol/L (3.5-5.1); Total Bilirubin 0.6 mg/dL (0.2-1.3); Total Protein 7.1 g/dL (6.3-8.2)
[2021-04-03 21:06] LABS: Appearance,Urine Clear (Clear); Bilirubin,Urine Negative (Negative); Blood,Urine Negative (Negative); Color,Urine Yellow; Glucose,Urine (UA) Negative (Negative); Ketones,Urine 1+ (Negative); Leukocyte Esterase,Urine Trace (Negative); Mucus,Urine Moderate /hpf; Nitrite,Urine Negative (Negative); Protein,Urine Trace (Negative); RBC,Urine 3 /hpf (0-5); Specific Gravity,Urine 1.038 (1.001-1.035); Urobilinogen,Urine <2.0 mg/dL (<2.0); WBC,Urine 1 /hpf (0-5)
[2021-04-03] MEDS ORDERED: HYDROmorphone 1 MG/ML 1 ML SYRINGE IVP STA (21:37)
[2021-04-03] MEDS ORDERED: ONDANSETRON 4 MG/2 ML VIAL IVP STA (21:37)
[2021-04-03 21:42] LABS: INR 1.1 (<1.2); Partial Thromboplastin Time 23.4 sec (22.0-30.0); Prothrombin Time 11.2 sec (9.0-12.0)
--- NOTE | 2021-04-03 21:50 | ED ---
General Adult HPI - General Chief complaint: Fever Stated complaint: UTI, ENT Time Seen by Provider: 04/03/21 19:47 Source: patient Mode of arrival: ambulatory - History of Present Illness Initial comments: 41 year-old male patient presents to the emergency department for evaluation of fever, chills, and body aches. He states he has sore throat, bilateral ear pain, back pain, and dysuria. States symptoms started this morning. He did take tylenol around 1pm and advil around 4pm. States he does have history of kidney stones. Denies any hematuria. Denies nausea or vomiting. States he has had strep in the past that turned to meningitis. Reports left upper quadrant abdominal pa in. Patient denies any recent rash, cough, shortness of breath, chest pain, diarrhea, constipation, numbness, tingling, dizziness, weakness, headache, visual changes, or any other complaints. - Related Data Home Medications Medication Instructions Recorded Confirmed Testosterone Cypionate 160 mg IM Q72H 01/26/19 03/29/21 [Depo-Testosterone] lisinopriL [Zestril] 10 mg PO BID 01/26/19 03/29/21 Acetaminophen Tab [Tylenol] 650 mg PO Q6H PRN 04/29/19 03/29/21 amLODIPine [Norvasc] 5 mg PO DAILY 04/29/19 03/29/21 Albuterol Sulfate [Ventolin HFA] 1 - 2 puff INHALATION RT-QID PRN 10/20/20 03/29/21 L.acidoph,Paracasei, B.lactis 1 cap PO DAILY 10/20/20 03/29/21 [Probiotic] Sildenafil Citrate [Sildenafil] 20 mg PO DAILY PRN 10/20/20 03/29/21 Levothyroxine Sodium [Synthroid] 100 mcg PO DAILY 11/01/20 03/29/21 Previous Rx's Medication Instructions Recorded Methocarbamol [Robaxin-750] 750 mg PO Q8HR PRN 30 Days #90 02/25/21 tablet Pregabalin [Lyrica] 150 mg PO BID 30 Days #60 cap 02/25/21 oxyCODONE HCL/ACETAMINOPHEN 1 tab PO Q12HR PRN #60 tab 02/25/21 [Percocet 5-325 mg] Amoxic-Pot Clav 875-125Mg 1 tab PO Q12HR #20 tablet 04/03/21 [Augmentin [id number]] Allergies Allergy/AdvReac Type Severity Reaction Status Date / Time benzalkonium chloride Allergy Severe Swelling Verified 04/03/21 19:45 duloxetine HCl AdvReac Severe severe Verified 04/03/21 19:45 [From Cymbalta] headache gabapentin [From Neurontin] AdvReac HEADACHE Verified 04/03/21 19:45 Review of Systems ROS Statement: Those systems with pertinent positive or pertinent negative responses have been documented in the HPI. ROS Other: All systems not noted in ROS Statement are negative. Past Medical History Past Medical History: GERD/Reflux, Hypertension, Thyroid Disorder Additional Past Medical History / Comment(s): HX KIDNEY STONE, CHRONIC BACK PAIN, LOW THYROID, UMBILICAL HERNIA. History of Any Multi-Drug Resistant Organisms: None Reported Past Surgical History: Appendectomy, Cholecystectomy Additional Past Surgical History / Comment(s): PAIN PROCEDURES, multiple kidney stone removals Past Anesthesia/Blood Transfusion Reactions: No Reported Reaction Additional Past Anesthesia/Blood Transfusion Reaction / Comment(s): States needs more sedation to put me asleep. Past Psychological History: No Psychological Hx Reported Smoking Status: Never smoker Past Alcohol Use History: None Reported Past Drug Use History: None Reported - Past Family History Mother History Unknown: Yes Family Medical History: Dementia Father Additional Family Medical History / Comment(s): SMOKER. General Exam General appearance: alert, in no apparent distress, other (Physical well-de veloped, well-nourished adult male patient in no acute distress. Vital signs upon presentation are temperature 102.8F, pulse 96, respirations 20, blood pressure 147/88, pulse ox 100% on room air.) Eye exam: Present: normal appearance, PERRL, EOMI. Absent: scleral icterus, conjunctival injection, periorbital swelling ENT exam: Present: mucous membranes moist. Absent: normal oropharynx (Pharyngeal erythema, tonsillar hypertrophy. No exudate.), TM's normal bilaterally (Bulging to the right tympanic membrane, no erythema.) Neck exam: Present: normal inspection, full ROM. Absent: tenderness, meningismus, lymphadenopathy Respiratory exam: Present: normal lung sounds bilaterally. Absent: respiratory distress, wheezes, rales, rhonchi, stridor Cardiovascular Exam: Present: regular rate, normal rhythm, normal heart sounds. Absent: systolic murmur, diastolic murmur, rubs, gallop, clicks GI/Abdominal exam: Present: soft, normal bowel sounds. Absent: distended, tenderness, guarding, rebound, rigid Back exam: Present: normal inspection, CVA tenderness (R). Absent: CVA tenderness (L) Neurological exam: Present: alert, oriented X3, CN II-XII intact Psychiatric exam: Present: normal affect, normal mood Skin exam: Present: warm, dry, intact, normal color. Absent: rash Course Vital Signs 04/03/21 04/03/21 19:35 22:57 Temperature 102.8 F H 100.3 F H Pulse Rate 96 80 Respiratory 20 18 Rate Blood Pressure 147/88 114/60 O2 Sat by Pulse 100 98 Oximetry Medical Decision Making - Medical Decision Making 41-year-old male patient presents to the emergency department today for evaluation of fever, body aches, back pain, dysuria. Also reports sore throat and ear pain. Physical examination did reveal pharyngeal erythema or tonsillar hypertrophy. There is no tonsillar exudate. No lymphadenopathy. Temperature upon arrival was 102.8F oral. Labs reviewed and did reveal white blood cell count at 13.5 with neutrophils of 11.8. Lymphocytes were low a 0.5. Creatinine 1.32, urinalysis showed trace leukocyte esterase and moderate mucus with no bacteria and no white blood cells. He tested negative for COVID-19, influenza, and strep. CT abdomen and pelvis was obtained and showed no evidence for infection or hydronephrosis. I did discuss findings and results with him. We did discuss viral upper respiratory illness as a cause for his symptoms. He was quite concerned so we did give prescription for Augmentin to be started if his symptoms are not improved over the next 2-3 days. He is instructed to alternate Tylenol Motrin. Increase fluids. Rest. Instructed follow-up with his primary care physician for recheck in 1-2 days. Return parameters were discussed in detail. He verbalizes understanding and agrees with this plan. Case discussed with my attending Dr. Hemphill. - Lab Data Result diagrams: 04/03/21 20:11 04/03/21 20:11 Lab Results 04/03/21 04/03/21 04/03/21 Range/Units 20:11 20:11 20:11 WBC 13.5 H (3.8-10.6) k/uL RBC 4.46 (4.30-5.90) m/uL Hgb 13.2 (13.0-17.5) gm/dL Hct 39.6 (39.0-53.0) % MCV 88.6 (80.0-100.0) fL MCH 29.6 (25.0-35.0) pg MCHC 33.4 (31.0-37.0) g/dL RDW 13.2 (11.5-15.5) % Plt Count 224 (150-450) k/uL MPV 9.0 Neutrophils % 88 % Lymphocytes % 4 % Monocytes % 6 % Eosinophils % 1 % Basophils % 0 % Neutrophils # 11.8 H (1.3-7.7) k/uL Lymphocytes # 0.5 L (1.0-4.8) k/uL Monocytes # 0.9 (0-1.0) k/uL Eosinophils # 0.2 (0-0.7) k/uL Basophils # 0.0 (0-0.2) k/uL PT 11.2 (9.0-12.0) sec INR 1.1 (<1.2) APTT 23.4 (22.0-30.0) sec Sodium (137-145) mmol/L Potassium (3.5-5.1) mmol/L Chloride (98-107) mmol/L Carbon Dioxide (22-30) mmol/L Anion Gap mmol/L BUN (9-20) mg/dL Creatinine (0.66-1.25) mg/dL Est GFR (CKD-EPI)AfAm (>60 ml/min/1.73 sqM) Est GFR (CKD-EPI)NonAf (>60 ml/min/1.73 sqM) Glucose (74-99) mg/dL Plasma Lactic Acid [place] (0.7-2.0) mmol/L Calcium (8.4-10.2) mg/dL Total Bilirubin (0.2-1.3) mg/dL AST (17-59) U/L ALT (4-49) U/L Alkaline Phosphatase (38-126) U/L Total Protein (6.3-8.2) g/dL Albumin (3.5-5.0) g/dL Urine Color Yellow Urine Appearance Clear (Clear) Urine pH 6.0 (5.0-8.0) Ur Specific [place] 1.038 H (1.001-1.035) Urine Protein Trace H (Negative) Urine Glucose (UA) Negative (Negative) Urine Ketones 1+ H (Negative) Urine Blood Negative (Negative) Urine Nitrite Negative (Negative) Urine Bilirubin Negative (Negative) Urine Urobilinogen <2.0 (<2.0) mg/dL Ur Leukocyte Esterase Trace H (Negative) Urine RBC 3 (0-5) /hpf Urine WBC 1 (0-5) /hpf Urine Mucus Moderate H (None) /hpf Coronavirus (PCR) (Not Detectd) Influenza Type A RNA (Not Detectd) Influenza Type B (PCR) (Not Detectd) Group A Strep Rapid (Negative) 04/03/21 04/03/21 04/03/21 Range/Units 20:11 20:11 20:11 WBC (3.8-10.6) k/uL RBC (4.30-5.90) m/uL Hgb (13.0-17.5) gm/dL Hct (39.0-53.0) % MCV (80.0-100.0) fL MCH (25.0-35.0) pg MCHC (31.0-37.0) g/dL RDW (11.5-15.5) % Plt Count (150-450) k/uL MPV Neutrophils % % Lymphocytes % % Monocytes % % Eosinophils % % Basophils % % Neutrophils # (1.3-7.7) k/uL Lymphocytes # (1.0-4.8) k/uL Monocytes # (0-1.0) k/uL Eosinophils # (0-0.7) k/uL Basophils # (0-0.2) k/uL PT (9.0-12.0) sec INR (<1.2) APTT (22.0-30.0) sec Sodium 137 (137-145) mmol/L Potassium 4.1 (3.5-5.1) mmol/L Chloride 102 (98-107) mmol/L Carbon Dioxide 28 (22-30) mmol/L Anion Gap 7 mmol/L BUN 14 (9-20) mg/dL Creatinine 1.32 H (0.66-1.25) mg/dL Est GFR (CKD-EPI)AfAm 76 (>60 ml/min/1.73 sqM) Est GFR (CKD-EPI)NonAf 66 (>60 ml/min/1.73 sqM) Glucose 84 (74-99) mg/dL Plasma Lactic Acid [place] 1.2 (0.7-2.0) mmol/L Calcium 9.0 (8.4-10.2) mg/dL Total Bilirubin 0.6 (0.2-1.3) mg/dL AST 34 (17-59) U/L ALT 21 (4-49) U/L Alkaline Phosphatase 64 (38-126) U/L Total Protein 7.1 (6.3-8.2) g/dL Albumin 4.4 (3.5-5.0) g/dL Urine Color Urine Appearance (Clear) Urine pH (5.0-8.0) Ur Specific [place] (1.001-1.035) Urine Protein (Negative) Urine Glucose (UA) (Negative) Urine Ketones (Negative) Urine Blood (Negative) Urine Nitrite (Negative) Urine Bilirubin (Negative) Urine Urobilinogen (<2.0) mg/dL Ur Leukocyte Esterase (Negative) Urine RBC (0-5) /hpf Urine WBC (0-5) /hpf Urine Mucus (None) /hpf Coronavirus (PCR) (Not Detectd) Influenza Type A RNA (Not Detectd) Influenza Type B (PCR) (Not Detectd) Group A Strep Rapid Negative (Negative) 04/03/21 04/03/21 Range/Units 20:11 21:45 WBC (3.8-10.6) k/uL RBC (4.30-5.90) m/uL Hgb (13.0-17.5) gm/dL Hct (39.0-53.0) % MCV (80.0-100.0) fL MCH (25.0-35.0) pg MCHC (31.0-37.0) g/dL RDW (11.5-15.5) % Plt Count (150-450) k/uL MPV Neutrophils % % Lymphocytes % % Monocytes % % Eosinophils % % Basophils % % Neutrophils # (1.3-7.7) k/uL Lymphocytes # (1.0-4.8) k/uL Monocytes # (0-1.0) k/uL Eosinophils # (0-0.7) k/uL Basophils # (0-0.2) k/uL PT (9.0-12.0) sec INR (<1.2) APTT (22.0-30.0) sec Sodium (137-145) mmol/L Potassium (3.5-5.1) mmol/L Chloride (98-107) mmol/L Carbon Dioxide (22-30) mmol/L Anion Gap mmol/L BUN (9-20) mg/dL Creatinine (0.66-1.25) mg/dL Est GFR (CKD-EPI)AfAm (>60 ml/min/1.73 sqM) Est GFR (CKD-EPI)NonAf (>60 ml/min/1.73 sqM) Glucose (74-99) mg/dL Plasma Lactic Acid [place]han (0.7-2.0) mmol/L Calcium (8.4-10.2) mg/dL Total Bilirubin (0.2-1.3) mg/dL AST (17-59) U/L ALT (4-49) U/L Alkaline Phosphatase (38-126) U/L Total Protein (6.3-8.2) g/dL Albumin (3.5-5.0) g/dL Urine Color Urine Appearance (Clear) Urine pH (5.0-8.0) Ur Specific [place] (1.001-1.035) Urine Protein (Negative) Urine Glucose (UA) (Negative) Urine Ketones (Negative) Urine Blood (Negative) Urine Nitrite (Negative) Urine Bilirubin (Negative) Urine Urobilinogen (<2.0) mg/dL Ur Leukocyte Esterase (Negative) Urine RBC (0-5) /hpf Urine WBC (0-5) /hpf Urine Mucus (None) /hpf Coronavirus (PCR) Not Detected (Not Detectd) Influenza Type A RNA Not Detected (Not Detectd) Influenza Type B (PCR) Not Detected (Not Detectd) Group A Strep Rapid (Negative) - Radiology Data Radiology results: report reviewed, image reviewed CT abdomen and pelvis with contrast was obtained. Report was reviewed in its en tirety. Impression by Dr. Rodriguez shows no evidence of renal stone or obstruction. Previous surgery at the cecum. No acute abnormality of the abdomen and pelvis. There is minimal subsegmental atelectasis at the lung bases which is increased compared to old exam. Disposition Clinical Impression: Viral upper respiratory illness Disposition: HOME SELF-CARE Condition: Good Instructions (If sedation given, give patient instructions): Fever in Adults (ED), Upper Respiratory Infection (ED) Additional Instructions: Increase fluids. Rest. Alternate Tylenol and Motrin for fever control. Follow-up with your primary care physician for recheck in 1-2 days. Return to the emergency department for any new, worsening, or concerning symptoms. Prescriptions: Amoxic-Pot Clav 875-125Mg [Augmentin 875-125] 1 tab PO Q12HR #20 tablet Is patient prescribed a controlled substance at d/c from ED?: No Referrals: Ryan Loving Jr, [Primary Care Provider] - 1-2 days Time of Disposition: 23:45
[2021-04-03 23:01] VITALS: BP 114/60; PULSE 80; RESP 18; TEMP 100.3
--- NOTE | 2021-04-03 23:24 | CT ---
EXAMINATION TYPE: CT abdomen pelvis w con DATE OF EXAM: 04/03/2021 COMPARISON: 02/20/2021 HISTORY: fever bilateral flank pain CT DLP: 1673.7 mGycm Automated exposure control for dose reduction was used. CONTRAST: Performed with IV Contrast, patient injected with 100 mL of Isovue 300. There is mild subsegmental atelectasis at the lung bases. There is no pleural effusion. Heart size is normal. There is no pericardial effusion. Liver spleen stomach pancreas appear intact. The bile ducts are nondilated. There are clips from chol ecystectomy. There is no adrenal mass. Kidneys show satisfactory contrast opacification. There is no hydronephrosi s. Ureters are not dilated. Delayed images show fairly normal renal excretion. There are small left r enal parapelvic cysts. Bladder distends smoothly. There is no inguinal hernia. There is no free fluid in the pelvis. There is no mesenteric edema. There is no ascites or free air. There is no bowel obstruction. There a re surgical clips at the cecum. Appendix is not seen. There are a few sigmoid diverticula. There is no diverticulitis. IMPRESSION: No evidence of renal stone or obstruction. Previous surgery at the cecum. No acute abnormality of the abdomen pelvis. There is minimal subsegmental atelectasis at the lung bases which is increased arvind red to old exam.
== END 2021-04-03 23:55 | disposition home or self-care (01) ==
LOC: EC 18:20
DX: J06.9 Acute upper respiratory infection, unspecified (principal); I10 Essential (primary) hypertension; K21.9 Gastro-esophageal reflux disease without esophagitis; E03.9 Hypothyroidism, unspecified; G89.29 Other chronic pain; Z79.890 Hormone replacement therapy; Z79.891 Long term (current) use of opiate analgesic; Z79.51 Long term (current) use of inhaled steroids; Z79.899 Other long term (current) drug therapy; Z88.8 Allergy status to other drugs, medicaments and biological substances
CPT/HCPCS: 96374 ×2; 96375 ×3; 96361 ×4; 99284 ×2; 36415; 80053; 83605; 85025; 85610; 85730; 81001; 87040; 87081; 87430; 87502; 87635; 74177; J2405; J1170; J1885; Q9967

== ENCOUNTER 2021-05-17 11:32 | Emergency (ER) | payer OTHER ==
[2021-05-17 12:01] VITALS: RESP 18; TEMP 98.7
[2021-05-17] MEDS ORDERED: SODIUM CHLORIDE 0.9% 1,000 ML IV STA (12:24)
[2021-05-17] MEDS ORDERED: ONDANSETRON 4 MG/2 ML VIAL IVP STA (12:24)
[2021-05-17] MEDS ORDERED: HYDROmorphone 1 MG/ML 1 ML SYRINGE IVP STA ×2 (12:24→13:02)
[2021-05-17 12:42] LABS: Basophils # (A) 0.1 k/uL (0-0.2); Basophils % (A) 1 %; Eosinophils # (A) 0.2 k/uL (0-0.7); Eosinophils % (A) 2 %; HCT 44.6 % (39.0-53.0); HGB 14.1 gm/dL (13.0-17.5); Hypochromasia Slight; Lymphocytes # (A) 1.5 k/uL (1.0-4.8); Lymphocytes % (A) 21 %; MCH 26.5 pg (25.0-35.0); MCHC 31.6 g/dL (31.0-37.0); Mean Platelet Volume 9.4; Monocytes # (A) 0.8 k/uL (0-1.0); Monocytes % (A) 10 %; Neutrophils # (A) 4.6 k/uL (1.3-7.7); Neutrophils % (A) 63 %; Platelet Count 298 k/uL (150-450); RBC 5.31 m/uL (4.30-5.90); RDW 14.3 % (11.5-15.5); WBC 7.2 k/uL (3.8-10.6)
[2021-05-17 12:51] LABS: Albumin 4.4 g/dL (3.5-5.0); Calcium 9.6 mg/dL (8.4-10.2); Potassium 4.1 mmol/L (3.5-5.1); Total Bilirubin 0.4 mg/dL (0.2-1.3); Total Protein 7.3 g/dL (6.3-8.2)
[2021-05-17 12:57] LABS: Appearance,Urine Clear (Clear); Bilirubin,Urine Negative (Negative); Blood,Urine Negative (Negative); Color,Urine Yellow; Glucose,Urine (UA) Negative (Negative); Ketones,Urine Trace (Negative); Leukocyte Esterase,Urine Negative (Negative); Nitrite,Urine Negative (Negative); PH, Urine 5.5 (5.0-8.0); Protein,Urine Trace (Negative); Specific Gravity,Urine 1.024 (1.001-1.035); Urobilinogen,Urine <2.0 mg/dL (<2.0)
--- NOTE | 2021-05-17 12:57 | XR ---
EXAMINATION TYPE: XR KUB DATE OF EXAM: 05/17/2021 COMPARISON: 01/21/2021 HISTORY: Pain TECHNIQUE: One view abdominal series FINDINGS: The osseous structures are intact. The bowel gas pattern is nonspecific. Lung bases are clear. Surg ical clips in the gallbladder fossa. No suspicious calcifications overlying the renal outlines or pel vis. Occasional air-fluid levels seen. IMPRESSION: 1. Nonspecific abdomen. Occasional air-fluid level could be on the basis of a localized ileus or ent eritis correlate clinically. 2. No evidence of suspicious calcification.
--- NOTE | 2021-05-17 13:07 | ED ---
Abdominal Pain HPI - General Chief Complaint: Abdominal Pain Stated Complaint: possible kidney stone Time Seen by Provider: 05/17/21 12:08 Source: patient, RN notes reviewed Mode of arrival: ambulatory Limitations: no limitations - History of Present Illness Initial Comments: 41-year-old male presenting emergency room complaining of left-sided flank pain. He notes he does have a pretty significant history of kidney stones. He notes that this feels like another kidney stone. He notes he does follow-up with urology but last couple times he was seen by them they're unable to do anything. Patient states that the pain is patient of and spot on 8-9 out of 10 with no relief. He notes that the lauded fluids and Zofran usually help. He denied any other issues or complaints. He did not appear to be in any distress while sitting up in bed during exam and interview. 90 chest pain shortness breath headache nausea vomiting diarrhea constipation fever fatigue chills. - Related Data Home Medications Medication Instructions Recorded Confirmed Testosterone Cypionate 160 mg IM Q72H 01/26/19 05/17/21 [Depo-Testosterone] lisinopriL [Zestril] 10 mg PO BID 01/26/19 05/17/21 amLODIPine [Norvasc] 5 mg PO DAILY 04/29/19 05/17/21 Albuterol Sulfate [Ventolin HFA] 1 - 2 puff INHALATION RT-QID PRN 10/20/2004/01 Sildenafil Citrate [Sildenafil] 20 mg PO DAILY PRN 10/20/20 05/17/21 oxyCODONE HCL/ACETAMINOPHEN 1 tab PO Q12HR PRN 05/07/21 05/17/21 [Percocet 5-325 mg] Levothyroxine Sodium [Synthroid] 50 mcg PO DAILY 05/17/21 05/17/21 Linaclotide [Linzess] 72 mcg PO DAILY PRN 05/17/21 05/17/21 Omeprazole [PriLOSEC] 20 mg PO DAILY PRN 05/17/21 05/17/21 Tamsulosin HCl [Flomax] 0.4 mg PO HS 05/17/21 05/17/21 Previous Rx's Medication Instructions Recorded Methocarbamol [Robaxin-750] 750 mg PO Q8HR PRN 30 Days #90 04/22/21 tablet Pregabalin [Lyrica] 150 mg PO BID 30 Days #60 cap 04/22/21 Allergies Allergy/AdvReac Type Severity Reaction Status Date / Time benzalkonium chloride Allergy Severe Swelling Verified 05/17/21 12:59 duloxetine HCl AdvReac Severe severe Verified 05/17/21 12:59 [From Cymbalta] headache gabapentin [From Neurontin] AdvReac HEADACHE Verified 05/17/21 12:59 Review of Systems ROS Statement: Those systems with pertinent positive or pertinent negative responses have been documented in the HPI. ROS Other: All systems not noted in ROS Statement are negative. Past Medical History Past Medical History: Hypertension, Thyroid Disorder Additional Past Medical History / Comment(s): HX KIDNEY STONE, CHRONIC BACK PAIN, LOW THYROID, UMBILICAL HERNIA.back pain History of Any Multi-Drug Resistant Organisms: None Reported Past Surgical History: Appendectomy, Cholecystectomy Additional Past Surgical History / Comment(s): PAIN PROCEDURES, multiple kidney stone removals Past Anesthesia/Blood Transfusion Reactions: No Reported Reaction Additional Past Anesthesia/Blood Transfusion Reaction / Comment(s): States needs more sedation to put me asleep. Past Psychological History: Depression Smoking Status: Never smoker Past Alcohol Use History: None Reported Past Drug Use History: None Reported - Past Family History Mother History Unknown: Yes Family Medical History: Dementia Father Additional Family Medical History / Comment(s): SMOKER. General Exam Limitations: no limitations General appearance: alert, in no apparent distress Head exam: Present: atraumatic, normocephalic, normal inspection Eye exam: Present: normal appearance, PERRL, EOMI. Absent: scleral icterus, conjunctival injection, periorbital swelling Neck exam: Present: normal inspection Respiratory exam: Present: normal lung sounds bilaterally. Absent: respiratory distress, wheezes, rales, rhonchi, stridor Cardiovascular Exam: Present: regular rate, normal rhythm, normal heart sounds. Absent: systolic murmur, diastolic murmur, rubs, gallop, clicks GI/Abdominal exam: Present: soft, normal bowel sounds. Absent: distended, t enderness, guarding, rebound, rigid Extremities exam: Present: normal inspection, full ROM, normal capillary refill. Absent: tenderness, pedal edema, joint swelling, calf tenderness Back exam: Present: normal inspection, CVA tenderness (L) Neurological exam: Present: alert, oriented X3 Psychiatric exam: Present: normal affect, normal mood Skin exam: Present: warm, dry, intact, normal color. Absent: rash Course Vital Signs 05/17/21 11:58 Temperature 98.7 F Pulse Rate 72 Respiratory 18 Rate Blood Pressure 133/88 O2 Sat by Pulse 98 Oximetry Medical Decision Making - Medical Decision Making 41-year-old male complaining of left flank pain, has a history of kidney stones. Labs, KUB, 1 mg of Dilaudid, 4 mg Zofran, 1 L normal saline ordered. Labs unremarkable. KUB shows nonacute abdomen. 1 more milligram of Dilaudid ordered for pain control. Case discussed with Dr. Null, patient can discharge home with follow-up to primary care and urology as needed. - Lab Data Result diagrams: 05/17/21 12:30 05/17/21 12:30 Lab Results 05/17/21 05/17/21 05/17/21 Range/Units 12:30 12:30 12:30 WBC 7.2 (3.8-10.6) k/uL RBC 5.31 (4.30-5.90) m/uL Hgb 14.1 (13.0-17.5) gm/dL Hct 44.6 (39.0-53.0) % MCV 84.0 (80.0-100.0) fL MCH 26.5 (25.0-35.0) pg MCHC 31.6 (31.0-37.0) g/dL RDW 14.3 (11.5-15.5) % Plt Count 298 (150-450) k/uL MPV 9.4 Neutrophils % 63 % Lymphocytes % 21 % Monocytes % 10 % Eosinophils % 2 % Basophils % 1 % Neutrophils # 4.6 (1.3-7.7) k/uL Lymphocytes # 1.5 (1.0-4.8) k/uL Monocytes # 0.8 (0-1.0) k/uL Eosinophils # 0.2 (0-0.7) k/uL Basophils # 0.1 (0-0.2) k/uL Hypochromasia Slight Sodium 137 (137-145) mmol/L Potassium 4.1 (3.5-5.1) mmol/L Chloride 101 (98-107) mmol/L Carbon Dioxide 27 (22-30) mmol/L Anion Gap 9 mmol/L BUN 13 (9-20) mg/dL Creatinine 1.20 (0.66-1.25) mg/dL Est GFR (CKD-EPI)AfAm 85 (>60 ml/min/1.73 sqM) Est GFR (CKD-EPI)NonAf 74 (>60 ml/min/1.73 sqM) Glucose 94 (74-99) mg/dL Calcium 9.6 (8.4-10.2) mg/dL Total Bilirubin 0.4 (0.2-1.3) mg/dL AST 28 (17-59) U/L ALT 20 (4-49) U/L Alkaline Phosphatase 59 (38-126) U/L Total Protein 7.3 (6.3-8.2) g/dL Albumin 4.4 (3.5-5.0) g/dL Amylase 60 (30-110) U/L Lipase 276 (23-300) U/L Urine Color Yellow Urine Appearance Clear (Clear) Urine pH 5.5 (5.0-8.0) Ur Specific [place] 1.024 (1.001-1.035) Urine Protein Trace H (Negative) Urine Glucose (UA) Negative (Negative) Urine Ketones Trace H (Negative) Urine Blood Negative (Negative) Urine Nitrite Negative (Negative) Urine Bilirubin Negative (Negative) Urine Urobilinogen <2.0 (<2.0) mg/dL Ur Leukocyte Esterase Negative (Negative) - Radiology Data Radiology results: report reviewed, image reviewed KUB: Nonspecific abdomen. Occasional air-fluid level could be on the basis localized ileus or enteritis. Computed tomography scan shows no hydronephrosis or obvious stones. No change from most recent CT. Disposition Clinical Impression: Left flank pain Disposition: HOME SELF-CARE Condition: Stable Instructions (If sedation given, give patient instructions): Abdominal Pain (ED) Additional Instructions: Please return to the Emergency Department if symptoms worsen or any other concerns. Follow-up with primary care the next 1-2 days. Follow-up with urologist as needed. Continue take at home medications as prescribed. Increase oral fluids. Continue take Flomax. Is patient prescribed a controlled substance at d/c from ED?: No Referrals: Ryan Loving Jr, [Primary Care Provider] - 1-2 days Time of Disposition: 14:44
[2021-05-17] MEDS ORDERED: KETOROLAC 15 MG/ML 1 ML VIAL IVP STA (13:14)
--- NOTE | 2021-05-17 14:13 | CT ---
EXAMINATION TYPE: CT abdomen pelvis w con DATE OF EXAM: 05/17/2021 COMPARISON: Most recent CT April 03, 2021 and prior studies HISTORY: Bilateral flank pain, worse on the left. CT DLP: 1718.3 mGycm, Automated Exposure Control for Dose Reduction was Utilized. CONTRAST: CT scan of the abdomen and pelvis is performed without oral but with IV Contrast, patient injected wi th 100ml mL of Isovue 300. FINDINGS: LUNG BASES: No significant abnormality is appreciated. LIVER/GB: Multiple Cholecystectomy clips are redemonstrated. PANCREAS: No significant abnormality is seen. SPLEEN: No significant abnormality is seen. ADRENALS: No significant abnormality is seen. KIDNEYS: Symmetric cortical medullary uptake and excretion is seen without hydronephrosis identified bilaterally. Simple appearing parapelvic cyst centrally in the lower pole left kidney are redemonstra fabien. No renal calculi bilaterally clearly seen. No intraluminal calculus in poorly distended bladder. The proximal left ureter is in close proximity to a slightly tortuous small vessel seen best referen ce coronal image 53 of uncertain etiology or significance. No significant change from most recent olga or study. BOWEL: Evaluation of bowel suboptimal secondary to lack of enteric contrast. Surgical changes at base of cecum from appendectomy are noted. No suspicious small or large bowel dilatation.. PROSTATE/SEMINAL VESICLES: Central calcifications N/A slightly prominent prostate gland redemonstrate d. BPH is not excluded. LYMPH NODES: No greater than 1cm abdominal or pelvic lymph nodes are appreciated. OSSEOUS STRUCTURES: Transitional type vertebra lumbosacral junction.. OTHER: No significant abnormality. IMPRESSION: No renal stones or hydronephrosis on today's study. No significant change from most recen t CT.
[2021-05-17 15:11] VITALS: BP 136/78; PULSE 92
== END 2021-05-17 15:11 | disposition home or self-care (01) ==
LOC: EC 11:32
DX: R10.9 Unspecified abdominal pain (principal); I10 Essential (primary) hypertension; F32.9 Major depressive disorder, single episode, unspecified; Z79.890 Hormone replacement therapy; Z79.51 Long term (current) use of inhaled steroids; Z79.899 Other long term (current) drug therapy; Z88.8 Allergy status to other drugs, medicaments and biological substances; Z90.49 Acquired absence of other specified parts of digestive tract; Z87.442 Personal history of urinary calculi
CPT/HCPCS: 36415; 80053; 82150; 83690; 85025; 81003; 74018; 74177; 96374; 96375 ×2; 96376; 96361 ×2; 99284; J2405; J1170; J1885; Q9967

== ENCOUNTER → 2021-06-03 | Outpatient (CLI) | payer OTHER ==
[2021-06-03 08:04] VITALS: BP 141/88; PULSE 66; RESP 18; TEMP 97.7
--- NOTE | 2021-06-03 08:06 | P.PAINPG ---
Subjective Progress Note Date: 06/03/21 This is follow-up visit for this 40 years old male with chronic history of severe low back pain,he is diagnosed with lumbar spondylosis with lumbar facet arthropathy ,and lumbar degenerative disc disease, and bilateral sacroiliitis, we have done radiofrequency thermocoagulation of the median branch lumbar area, patient get excellent pain relief, and most recently performed a right SI joint injection. We had referred him to see an orthopedic surgeon for his elbow and has an appointment next week. She mentions that the sacroiliac joint injection helps her about 6 weeks and he would like to repeat it again. After that we can repeat his bilateral L4-L5 and L5-S1 radiofrequency ablations. He mentions that the Robaxin is not helping as much as it used to neither is the Lyrica and would like to make some adjustments to those medications. patient also uses oxycodone 5 mg every 8 hours when necessary, he denies any excessive drowsiness or sleepiness and he continued to have severe low back pain mostly in the buttock area right side, denies any motor or sensory deficit he denies any fever or nig ht sweats Physical Examinations : -Constitutiona : Cooperative , not in acute distress . -HEENT : nech : supple , no Lymphadenopathy , normal thyroid size . : eyes : no ptosis , no icterus, no photophobia . - neurologic : Cranial nerve II to XII intact , no focal neurological deffecit . -psychatric : alert , oriented X 3 , appropriate affect , intact judgment and insight . -Lymphatic : no Lymphadenopathy . - musculoskeltal : Lumber spine moter stegnth lower extremities ,thigh and legs 5/5 Right side , 5/5 Left side deep tendon reflexes : normal Knee Jerk , normal ankle Jerk lumber facet Loading Test =positive Right , positive Left Range of motion of the lumbar spine Flexion 30 degrees, extension 10 degrees strait leg raising test = positive at 45 degree Fabere test= positive Right , and positive LT . Sever tenderness over the Sacroiliac joint on the Right . Gaenslen test= positive right . Seated flexion test= positive right . Distraction test= positive right Sacroiliac compression test= positive right Assessment and plan= chronic low back pain secondary to lumbar degenerative disc disease , lumbar spondylosis with lumbar facet arthropathy . And sacroiliitis, elbow pain He did not benefit from left elbow steroid injection chronic and current use of high-risk medication (opioids) Patient denies any side effects of the current pain medication and the current treatment/medication helping the patient to do activity of daily living , Diagnoses, prognosis, treatment options, including but not limited to physical therapy, medication management, interventional therapies, and surgery, were discussed with the patient All the questions answered The narcotic consent was signed and patient agreed and understood the side effects and complications of opioid treatment. Patient signed the narcotic agreement, and was orally counseled, not to overuse, not to abuse, not to Divert , not tp sell pain medication, and to take it as prescribed only, Patient was counseled not to drive or operate heavy equipment while using narcotic medication, and advised not to use alcohol or any Illicit drugs while using the narcotis. understanding that lack of compliance with any of the above instructions, will likely to cause discharge from, the pain service, not to renew his narcotic prescriptions MAPS Reviwed and it was apropriate . Urine drug screen ordered Medication managements= we will refill his percocet 60 tabs 30 days for him. Increase his Lyrica 150 mg in the morning and 300 mg at night. I will change his muscle relaxer to baclofen 10 twice a day as he said this was helpful for him in the past. He also mentions tizanidine was helpful for him in the past, after about 6 months and gave him some paranoia and so he mentions might be helpful to rotate back through them when certain medications become less efficacious. We will also schedule him for right-sided sacroiliac joint injection. I have spent 31 minutes on patient care today. The time was used to review the medical records including relevant urine studies and prescription history, review of the available imaging, evaluation and examination of the patient, coordination of care with the medical staff and if applicable referring physicians, as well as creation of the medical record. PQRS= - Patient's medications are documented in the chart. -Tobacco use is negative and counseling.Given. -Patient's has not received pneumococcal vaccine. -Advanced care planning discussed, patient not eligible. -Opiate contract signed. -Pain positive and follow-up visit/procedure is scheduled. -Patient's blood pressure measured [ 119/77 ] , and documented in the record ,and patient will follow up with the primary care. -Patient's weight was measured and body mass index [32.9 ] above the,within the normal limits and counseling was done. and patient instructed to follow-up with the primary care physician. -Patient was not identified as an unhealthy alcohol user PQRS Measure Charge Sheet PQRS Narrative: Smoking Status Never smoker Narcotic Agreement Date Signed 05/02/20 Pain Intensity [Lower Back] 7 Scale Used Numeric (1 - 10) Hx Alcohol Use (MH) No Home Medications: Ambulatory Orders Testosterone Cypionate [Depo-Testosterone] 160 mg IM Q72H 01/26/19 lisinopriL [Zestril] 10 mg PO BID 01/26/19 amLODIPine [Norvasc] 5 mg PO DAILY 04/29/19 Albuterol Sulfate [Ventolin HFA] 1 - 2 puff INHALATION RT-QID PRN 10/20/20 Sildenafil Citrate [Sildenafil] 20 mg PO DAILY PRN 10/20/20 Levothyroxine Sodium [Synthroid] 50 mcg PO DAILY 05/17/21 Linaclotide [Linzess] 72 mcg PO DAILY PRN 05/17/21 Omeprazole [PriLOSEC] 20 mg PO DAILY PRN 05/17/21 Tamsulosin HCl [Flomax] 0.4 mg PO HS 05/17/21 Baclofen 10 mg PO BID PRN 30 Days #60 tab 06/03/21 Pregabalin [Lyrica] 150 mg PO BID 30 Days #90 capsule 06/03/21 oxyCODONE HCL/ACETAMINOPHEN [Percocet 5-325 mg] 1 tab PO Q12HR PRN 30 Days #60 tab 06/03/21 oxyCODONE HCL/ACETAMINOPHEN [Percocet 5-325 mg] 1 tab PO Q12HR PRN 30 Days #60 tab 06/03/21 Controlled Substance Measures - Controlled Substance Measures Is patient prescribed a controlled substance at discharge?: Yes When asked, does pt state using other controlled substances?: No If prescribed controlled substance>3 days was MAPS reviewed?: Yes If Rx opioid, was Start Talking consent form obtained?: Yes If opioid is for acute pain is fill amount 7 days or less?: No Was information provided regarding opioid addiction?: No
== END ==
LOC: PNWHC3 07:21
PROVIDERS: ATTEND Anesthesiology
DX: M51.36 Other intervertebral disc degeneration, lumbar region (principal); M47.816 Spondylosis without myelopathy or radiculopathy, lumbar region; M46.1 Sacroiliitis, not elsewhere classified; G89.29 Other chronic pain; M25.529 Pain in unspecified elbow; Z79.891 Long term (current) use of opiate analgesic
CPT/HCPCS: 99211

== ENCOUNTER → 2021-07-22 | Outpatient (CLI) | payer OTHER ==
[2021-07-22 09:07] VITALS: BP 136/89; PULSE 80; RESP 18
--- NOTE | 2021-07-22 09:31 | P.PN ---
Subjective Progress Note Date: 07/22/21 This is follow-up visit for this 41 years old male ,with chronic history of severe low back pain,he is diagnosed with lumbar spondylosis with lumbar facet arthropathy ,and lumbar degenerative disc disease, and bilateral sacroiliitis, previously we have done radiofrequency thermocoagulation of the median branch lumbar area, patient get excellent pain relief, and also we have done sacroiliac joint steroid injection to get excellent relief, after the injection patient, she didn't continue to see chiropractors 2-3 times a week, he is currently doing home exercise daily , as instructed by his chiropractors, and he had minimal benefit from it continued to use baclofen 10 mg 4 times a day PRN , and Lyrica 150 mg 3 a day, patient also uses oxycodone 5 mg every 8 hours when necessary, he denies any excessive drowsiness or sleepiness and he continued to have severe low back pain mostly in the buttock area right side, denies any motor or sensory deficit he denies any fever or night sweats Physical Examinations : -Constitutiona : Cooperative , not in acute distress . -HEENT : nech : supple , no Lymphadenopathy , normal thyroid size . : eyes : no ptosis , no icterus, no photophobia . - neurologic : Cranial nerve II to XII intact , no focal neurological deffecit . -psychatric : alert , oriented X 3 , appropriate affect , intact judgment and insight . -Lymphatic : no Lymphadenopathy . - musculoskeltal : Lumber spine moter stegnth lower extremities ,thigh and legs 5/5 Right side , 5/5 Left side deep tendon reflexes : normal Knee Jerk , normal ankle Jerk lumber facet Loading Test =positive Right , positive Left Range of motion of the lumbar spine Flexion 30 degrees, extension 10 degrees strait leg raising test = positive at 45 degree Fabere test= positive Right , and positive LT . Sever tenderness over the Sacroiliac joint on the Right . Gaenslen test= positive right . Seated flexion test= positive right . Distraction test= positive right Sacroiliac compression test= positive right Assessment and plan= chronic low back pain secondary to lumbar degenerative disc disease , lumbar spondylosis with lumbar facet arthropathy . And Right sacroiliitis, chronic and current use of high-risk medication (opioids) Patient denies any side effects of the current pain medication and the current treatment/medication helping the patient to do activity of daily living , Diagnoses, prognosis, treatment options, including but not limited to physical therapy, medication management, interventional therapies, and surgery, were discussed with the patient All the questions answered The narcotic consent was signed and patient agreed and understood the side effects and complications of opioid treatment. Patient signed the narcotic agreement, and was orally counseled, not to overuse, not to abuse, not to Divert , not tp sell pain medication, and to take it as prescribed only, Patient was counseled not to drive or operate heavy equipment while using narcotic medication, and advised not to use alcohol or any Illicit drugs while using the narcotis. understanding that lack of compliance with any of the above instructions, will likely to cause discharge from, the pain service, not to renew his narcotic prescriptions MAPS Reviwed and it was apropriate . Urine drug screen ordered Medication managements= patient will be given prescription refills for Lyrica 150 mg 3 times a day I will start patient on Percocet 5/325 every 12 hours when necessary dispense 60 with 1 refill Continue baclofen 10 mg every 6 hours when necessary he could benefit from right side sacroiliac joint steroid injection under fluoroscopy guidance PQRS= - Patient's medications are documented in the chart. -Tobacco use is negative and counseling.Given. -Patient's has not received pneumococcal vaccine. -Advanced care planning discussed, patient not eligible. -Opiate contract signed. -Pain positive and follow-up visit/procedure is scheduled. -Patient's blood pressure measured [ 136/89 ] , and documented in the record ,and patient will follow up with the primary care. -Patient's weight was measured and body mass index [32.9 ] above the normal limits and counseling was done. and patient instructed to follow-up with the primary care physician. -Patient was not identified as an unhealthy alcohol user Objective - Vital Signs Vital signs: Vital Signs Temp Pulse 80 07/22/21 08:50 Resp 18 07/22/21 08:50 BP 136/89 07/22/21 08:50 Pulse Ox 97 07/22/21 08:50 Intake & Output 07/21/21 07/22/21 07/22/21 18:59 06:59 18:59 Weight 116.12 kg
== END ==
LOC: PNWHC3 08:45
PROVIDERS: ATTEND Specialist
DX: G89.29 Other chronic pain (principal); M51.36 Other intervertebral disc degeneration, lumbar region; M47.816 Spondylosis without myelopathy or radiculopathy, lumbar region; Z79.891 Long term (current) use of opiate analgesic; Z88.6 Allergy status to analgesic agent; Z88.8 Allergy status to other drugs, medicaments and biological substances
CPT/HCPCS: 99211

== ENCOUNTER 2021-08-07 09:12 | Emergency (ER) | payer OTHER ==
[2021-08-07 09:25] VITALS: BP 137/90; PULSE 99; RESP 18; TEMP 98.8
[2021-08-07] MEDS ORDERED: MORPHINE SULFATE 4 MG/ML SYRINGE IVP STA ×2 (11:01→13:54)
[2021-08-07] MEDS ORDERED: SODIUM CHLORIDE 0.9% 1,000 ML IV STA (11:02)
--- NOTE | 2021-08-07 11:20 | ED ---
General Adult HPI - General Chief complaint: Weakness Stated complaint: Headache/weakness new onset Time Seen by Provider: 08/07/21 10:28 Source: patient Mode of arrival: ambulatory Limitations: no limitations - History of Present Illness Initial comments: 41-year-old male with a past medical history of appendectomy, cholecystectomy, pain procedures, hypertension presents to the emergency room for vague complaints. Patient states that on Thursday he developed a headache. States it has been persistent since that time. He has also had congestion and a sore throat. States his sore throat has resolved but he is still getting some congestion. Patient saw urgent care on Thursday and was given a steroid for a sinus infection. States he wanted to follow up with his own doctor who started him on antibiotics for a sinus infection yesterday. Patient has tested negative for Covid 2 and strep times one. Last night around 2 AM his muscles started hurting. States his arms and his legs hurt. No fevers. Patient states it hurts too much to walk. He did take Tylenol about 5 hours prior to arrival. Patient has no other complaints at this time including shortness of breath, chest pain, abdominal pain, nausea or vomiting, or visual changes. - Related Data Home Medications Medication Instructions Recorded Confirmed Testosterone Cypionate 200 mg IM Q72H 01/26/19 08/07/21 [Depo-Testosterone] lisinopriL [Zestril] 10 mg PO BID 01/26/19 08/07/21 amLODIPine [Norvasc] 5 mg PO DAILY 04/29/19 08/07/21 Sildenafil Citrate [Sildenafil] 20 mg PO DAILY PRN 10/20/20 08/07/21 Levothyroxine Sodium [Synthroid] 50 mcg PO DAILY 05/17/21 08/07/21 Linaclotide [Linzess] 72 mcg PO DAILY PRN 05/17/21 08/07/21 Omeprazole [PriLOSEC] 20 mg PO DAILY PRN 05/17/21 08/07/21 Albuterol Sulfate [Proair Hfa] 2 puff INHALATION RT-Q4H PRN 08/07/21 08/07/21 Baclofen 20 mg PO BID 08/07/21 08/07/21 Clarithromycin [Biaxin] 500 mg PO Q12HR 08/07/21 08/07/21 Fluticasone Nasal [place] [Flonase 1 spray EA NOSTRIL DAILY 08/07/21 08/07/21 Nasal [place]] Loratadine [Claritin] 10 mg PO DAILY 08/07/21 08/07/21 Pregabalin [Lyrica] 150 mg PO HS 08/07/21 08/07/21 Pregabalin [Lyrica] 300 mg PO DAILY 08/07/21 08/07/21 diphenhydrAMINE [Benadryl] 50 mg PO HS 08/07/21 08/07/21 predniSONE [Deltasone] See Taper PO DAILY 08/07/21 08/07/21 Previous Rx's Medication Instructions Recorded oxyCODONE HCL/ACETAMINOPHEN 1 tab PO Q6HR PRN 30 Days #60 tab 07/22/21 [Percocet 5-325 mg] Allergies Allergy/AdvReac Type Severity Reaction Status Date / Time benzalkonium chloride Allergy Severe Swelling Verified 08/07/21 12:36 duloxetine HCl AdvReac Severe severe Verified 08/07/21 12:36 [From Cymbalta] headache gabapentin [From Neurontin] AdvReac HEADACHE Verified 08/07/21 12:36 Review of Systems ROS Statement: Those systems with pertinent positive or pertinent negative responses have been documented in the HPI. ROS Other: All systems not noted in ROS Statement are negative. Past Medical History Past Medical History: Hypertension, Thyroid Disorder Additional Past Medical History / Comment(s): HX KIDNEY STONE, CHRONIC BACK PAIN, LOW THYROID, UMBILICAL HERNIA.back pain History of Any Multi-Drug Resistant Organisms: None Reported Past Surgical History: Appendectomy, Cholecystectomy Additional Past Surgical History / Comment(s): PAIN PROCEDURES, multiple kidney stone removals, secondary polycythemia Past Anesthesia/Blood Transfusion Reactions: No Reported Reaction Additional Past Anesthesia/Blood Transfusion Reaction / Comment(s): States needs more sedation to put me asleep. Past Psychological History: No Psychological Hx Reported Smoking Status: Never smoker Past Alcohol Use History: None Reported Past Drug Use History: None Reported - Past Family History Mother History Unknown: Yes Family Medical History: Dementia Father Additional Family Medical History / Comment(s): SMOKER. General Exam Limitations: no limitations General appearance: alert, in no apparent distress Head exam: Present: atraumatic Eye exam: Present: normal appearance, PERRL, EOMI. Absent: scleral icterus, conjunctival injection ENT exam: Present: normal exam, mucous membranes moist Neck exam: Present: normal inspection, full ROM. Absent: tenderness Respiratory exam: Present: normal lung sounds bilaterally. Absent: respiratory distress, wheezes Cardiovascular Exam: Present: regular rate, normal rhythm, normal heart sounds GI/Abdominal exam: Present: soft, normal bowel sounds. Absent: distended, tenderness Extremities exam: Present: other (Full range of motion of all extremities) Course Vital Signs 08/07/21 09:22 Temperature 98.8 F Pulse Rate 99 Respiratory 18 Rate Blood Pressure 137/90 O2 Sat by Pulse 97 Oximetry EKG Findings - EKG Comments: EKG Findings:: Normal sinus rhythm, ventricular rate 98, WV interval 160, QTC 480 Medical Decision Making - Medical Decision Making Vitals are stable. CBC does show leukocytosis however patient did start on steroids. CMP is unremarkable. Urinalysis unremarkable. Coronavirus is negative. Creatine kinase is normal. EKG and troponin unremarkable. CT brain shows no acute intracranial process. Patient was given pain meds which did help with his pain. This did cause some nausea and he was given Zofran which helped. I did speak with Dr. Jett regarding this case and is agreeable to following him outpatient. Patient will return here for any worsening symptoms. - Lab Data Result diagrams: 08/07/21 11:22 08/07/21 11:22 Lab Results 08/07/21 08/07/21 08/07/21 Range/Units 09:50 11:22 11:22 WBC 18.3 H (3.8-10.6) k/uL RBC 5.90 (4.30-5.90) m/uL Hgb 14.5 (13.0-17.5) gm/dL Hct 46.3 (39.0-53.0) % MCV 78.5 L (80.0-100.0) fL MCH 24.5 L (25.0-35.0) pg MCHC 31.2 (31.0-37.0) g/dL RDW 17.2 H (11.5-15.5) % Plt Count 306 (150-450) k/uL MPV 9.1 Neutrophils % 88 % Lymphocytes % 7 % Monocytes % 4 % Eosinophils % 0 % Basophils % 0 % Neutrophils # 16.0 H (1.3-7.7) k/uL Lymphocytes # 1.3 (1.0-4.8) k/uL Monocytes # 0.8 (0-1.0) k/uL Eosinophils # 0.0 (0-0.7) k/uL Basophils # 0.0 (0-0.2) k/uL Anisocytosis Slight Microcytosis Slight Sodium (137-145) mmol/L Potassium (3.5-5.1) mmol/L Chloride (98-107) mmol/L Carbon Dioxide (22-30) mmol/L Anion Gap mmol/L BUN (9-20) mg/dL Creatinine (0.66-1.25) mg/dL Est GFR (CKD-EPI)AfAm (>60 ml/min/1.73 sqM) Est GFR (CKD-EPI)NonAf (>60 ml/min/1.73 sqM) Glucose (74-99) mg/dL Calcium (8.4-10.2) mg/dL Total Bilirubin (0.2-1.3) mg/dL AST (17-59) U/L ALT (4-49) U/L Alkaline Phosphatase (38-126) U/L Creatine Kinase (55-170) U/L Troponin I (0.000-0.034) ng/mL Total Protein (6.3-8.2) g/dL Albumin (3.5-5.0) g/dL Urine Color Yellow Urine Appearance Clear (Clear) Urine pH 7.0 (5.0-8.0) Ur Specific [place] 1.030 (1.001-1.035) Urine Protein Trace H (Negative) Urine Glucose (UA) Negative (Negative) Urine Ketones Trace H (Negative) Urine Blood Negative (Negative) Urine Nitrite Negative (Negative) Urine Bilirubin Negative (Negative) Urine Urobilinogen <2.0 (<2.0) mg/dL Ur Leukocyte Esterase Negative (Negative) Coronavirus (PCR) Not Detected (Not Detectd) 08/07/21 08/07/21 Range/Units 11:22 11:22 WBC (3.8-10.6) k/uL RBC (4.30-5.90) m/uL Hgb (13.0-17.5) gm/dL Hct (39.0-53.0) % MCV (80.0-100.0) fL MCH (25.0-35.0) pg MCHC (31.0-37.0) g/dL RDW (11.5-15.5) % Plt Count (150-450) k/uL MPV Neutrophils % % Lymphocytes % % Monocytes % % Eosinophils % % Basophils % % Neutrophils # (1.3-7.7) k/uL Lymphocytes # (1.0-4.8) k/uL Monocytes # (0-1.0) k/uL Eosinophils # (0-0.7) k/uL Basophils # (0-0.2) k/uL Anisocytosis Microcytosis Sodium 136 L (137-145) mmol/L Potassium 4.3 (3.5-5.1) mmol/L Chloride 104 (98-107) mmol/L Carbon Dioxide 24 (22-30) mmol/L Anion Gap 8 mmol/L BUN 15 (9-20) mg/dL Creatinine 1.06 (0.66-1.25) mg/dL Est GFR (CKD-EPI)AfAm >90 (>60 ml/min/1.73 sqM) Est GFR (CKD-EPI)NonAf 86 (>60 ml/min/1.73 sqM) Glucose 147 H (74-99) mg/dL Calcium 9.1 (8.4-10.2) mg/dL Total Bilirubin 0.4 (0.2-1.3) mg/dL AST 21 (17-59) U/L ALT 18 (4-49) U/L Alkaline Phosphatase 51 (38-126) U/L Creatine Kinase 131 (55-170) U/L Troponin I <0.012 (0.000-0.034) ng/mL Total Protein 7.1 (6.3-8.2) g/dL Albumin 4.1 (3.5-5.0) g/dL Urine Color Urine Appearance (Clear) Urine pH (5.0-8.0) Ur Specific [place] (1.001-1.035) Urine Protein (Negative) Urine Glucose (UA) (Negative) Urine Ketones (Negative) Urine Blood (Negative) Urine Nitrite (Negative) Urine Bilirubin (Negative) Urine Urobilinogen (<2.0) mg/dL Ur Leukocyte Esterase (Negative) Coronavirus (PCR) (Not Detectd) Disposition Clinical Impression: Myalgia, Extremity pain, Congestion of nasal sinus, Head ache Disposition: HOME SELF-CARE Condition: Fair Instructions (If sedation given, give patient instructions): Upper Respiratory Infection (ED), Musculoskeletal Pain (ED) Additional Instructions: Please follow-up with your doctor in one to 2 days. Return to the emergency room for any worsening symptoms. Is patient prescribed a controlled substance at d/c from ED?: No Referrals: Ryan Loving Jr, [Primary Care Provider] - 1-2 days Time of Disposition: 13:32
[2021-08-07] MEDS ORDERED: ONDANSETRON 4 MG/2 ML VIAL IVP STA ×2 (11:35→14:55)
[2021-08-07 11:39] LABS: Anisocytosis Slight; Basophils % (A) 0 %; Eosinophils % (A) 0 %; HCT 46.3 % (39.0-53.0); HGB 14.5 gm/dL (13.0-17.5); Lymphocytes # (A) 1.3 k/uL (1.0-4.8); Lymphocytes % (A) 7 %; MCH 24.5 pg (25.0-35.0); MCHC 31.2 g/dL (31.0-37.0); MCV 78.5 fL (80.0-100.0); Mean Platelet Volume 9.1; Microcytosis Slight; Monocytes # (A) 0.8 k/uL (0-1.0); Monocytes % (A) 4 %; Neutrophils % (A) 88 %; Platelet Count 306 k/uL (150-450); RDW 17.2 % (11.5-15.5); WBC 18.3 k/uL (3.8-10.6)
[2021-08-07 11:45] LABS: Appearance,Urine Clear (Clear); Bilirubin,Urine Negative (Negative); Blood,Urine Negative (Negative); Color,Urine Yellow; Glucose,Urine (UA) Negative (Negative); Ketones,Urine Trace (Negative); Leukocyte Esterase,Urine Negative (Negative); Nitrite,Urine Negative (Negative); Protein,Urine Trace (Negative); Urobilinogen,Urine <2.0 mg/dL (<2.0)
[2021-08-07 11:53] LABS: ALT 18 U/L (4-49); AST 21 U/L (17-59); African American GFR (CKD) >90 (>60 ml/min/1.73 sqM); Albumin 4.1 g/dL (3.5-5.0); Alkaline Phosphatase 51 U/L (38-126); Anion Gap 8 mmol/L; Blood Urea Nitrogen 15 mg/dL (9-20); Calcium 9.1 mg/dL (8.4-10.2); Carbon Dioxide 24 mmol/L (22-30); Chloride 104 mmol/L (98-107); Creatine Kinase 131 U/L (55-170); Glucose 147 mg/dL (74-99); Non-African American GFR(CKD) 86 (>60 ml/min/1.73 sqM); Potassium 4.3 mmol/L (3.5-5.1); Sodium 136 mmol/L (137-145); Total Bilirubin 0.4 mg/dL (0.2-1.3); Total Protein 7.1 g/dL (6.3-8.2)
--- NOTE | 2021-08-07 13:16 | CT ---
EXAMINATION TYPE: CT brain wo con DATE OF EXAM: 08/07/2021 COMPARISON: 11/07/2017 HISTORY: Headache CT DLP: 1153.[address] of the brain was performed. The ventricles, basal cisterns and sulci overlying the cerebral convexities demonstrate a normal appe arance. There is no evidence for intracranial hemorrhage or sulcal effacement. No mass effects are seen. Osseous calvarium is intact. Chronic paranasal sinusitis. If symptoms persist consider MRI as clinically warranted. IMPRESSION: 1. No acute intracranial process is seen at this time.
[2021-08-07] MEDS ORDERED: KETOROLAC 15 MG/ML 1 ML VIAL IVP STA ×2 (13:38→15:30)
== END 2021-08-07 15:43 | disposition home or self-care (01) ==
LOC: EC 09:12
DX: R51.9 Headache, unspecified (principal); R09.81 Nasal congestion; M79.604 Pain in right leg; M79.605 Pain in left leg; M79.601 Pain in right arm; M79.602 Pain in left arm; I10 Essential (primary) hypertension; E07.9 Disorder of thyroid, unspecified; Z88.1 Allergy status to other antibiotic agents; Z87.442 Personal history of urinary calculi; Z90.49 Acquired absence of other specified parts of digestive tract; Z20.822 Contact with and (suspected) exposure to COVID-19
CPT/HCPCS: 99284; 96374; 96375 ×2; 96376 ×2; 96361 ×2; 36415; 93005; 80053; 82550; 84484; 85025; 81003; 87635; 70450; J2270; J2405; J1885

== ENCOUNTER 2021-09-03 18:31 | Emergency (ER) | payer OTHER ==
[2021-09-03 19:11] VITALS: PULSE 85; RESP 19; TEMP 98.9
[2021-09-03] MEDS ORDERED: ONDANSETRON 4 MG/2 ML VIAL IVP STA (20:46)
[2021-09-03] MEDS ORDERED: KETOROLAC 30 MG/ML 1 ML VIAL IVP STA (20:46)
[2021-09-03] MEDS ORDERED: HYDROmorphone 0.5 MG/0.5 ML SYRINGE IVP STA ×2 (20:46→23:43)
[2021-09-03] MEDS ORDERED: SODIUM CHLORIDE 0.9% 1,000 ML IV ONE (20:46)
[2021-09-03 21:06] LABS: Appearance,Urine Clear (Clear); Bilirubin,Urine Negative (Negative); Blood,Urine Negative (Negative); Color,Urine Yellow; Glucose,Urine (UA) Negative (Negative); Ketones,Urine 1+ (Negative); Leukocyte Esterase,Urine Negative (Negative); Mucus,Urine Many /hpf; Nitrite,Urine Negative (Negative); PH, Urine 5.5 (5.0-8.0); Protein,Urine 1+ (Negative); Specific Gravity,Urine 1.039 (1.001-1.035); Squamous Epithelial Cell,Urine <1 /hpf (0-4); Urobilinogen,Urine <2.0 mg/dL (<2.0); WBC,Urine 3 /hpf (0-5)
[2021-09-03] MEDS ORDERED: SODIUM CHLORIDE 0.9% 50 ML IVPB ONE (21:15)
[2021-09-03] MEDS ORDERED: BAMLANIVIMAB (EUA) 700 MG, ETESEVIMAB (EUA) 1,400 MG in SODIUM CHLORIDE 0.9% 50 ML IVPB ONE (21:30)
--- NOTE | 2021-09-03 23:14 | ED ---
URI HPI - General Chief Complaint: Upper Respiratory Infection Stated Complaint: covid+, wants infusion Time Seen by Provider: 09/03/21 20:13 Source: patient Mode of arrival: ambulatory Limitations: no limitations - History of Present Illness Initial Comments: 41-year-old male patient presents to the emergency department today requesting infusion of antibodies after testing positive for COVID-19. Patient states that he has been sick for the last week. States he did test positive on 08/28/2021 at in [facility] urgent care. Patient reports cough, congestion, body aches, weakness. Denies any vomiting or diarrhea. Denies any rash. Patient is also reporting right flank pain with history of kidney stones. Denies any fever or chills. States he is urinating. Denies any hematuria. Patient denies any recent rash, chest pain, numbness, tingling, dizziness, weakness, headache, visual changes, or any other complaints. - Related Data Home Medications Medication Instructions Recorded Confirmed Testosterone Cypionate 200 mg IM Q72H 01/26/19 08/07/21 [Depo-Testosterone] lisinopriL [Zestril] 10 mg PO BID 01/26/19 08/07/21 amLODIPine [Norvasc] 5 mg PO DAILY 04/29/19 08/07/21 Sildenafil Citrate [Sildenafil] 20 mg PO DAILY PRN 10/20/20 08/07/21 Levothyroxine Sodium [Synthroid] 50 mcg PO DAILY 05/17/21 08/07/21 Linaclotide [Linzess] 72 mcg PO DAILY PRN 05/17/21 08/07/21 Omeprazole [PriLOSEC] 20 mg PO DAILY PRN 05/17/21 08/07/21 Albuterol Sulfate [Proair Hfa] 2 puff INHALATION RT-Q4H PRN 08/07/21 08/07/21 Baclofen 20 mg PO BID 08/07/21 08/07/21 Clarithromycin [Biaxin] 500 mg PO Q12HR 08/07/21 08/07/21 Fluticasone Nasal [place] [Flonase 1 spray EA NOSTRIL DAILY 08/07/21 08/07/21 Nasal [place]] Loratadine [Claritin] 10 mg PO DAILY 08/07/21 08/07/21 Pregabalin [Lyrica] 150 mg PO HS 08/07/21 08/07/21 Pregabalin [Lyrica] 300 mg PO DAILY 08/07/21 08/07/21 diphenhydrAMINE [Benadryl] 50 mg PO HS 08/07/21 08/07/21 predniSONE [Deltasone] See Taper PO DAILY 08/07/21 08/07/21 Previous Rx's Medication Instructions Recorded oxyCODONE HCL/ACETAMINOPHEN 1 tab PO Q6HR PRN 30 Days #60 tab 07/22/21 [Percocet 5-325 mg] Allergies Allergy/AdvReac Type Severity Reaction Status Date / Time benzalkonium chloride Allergy Severe Swelling Verified 09/03/21 19:11 duloxetine HCl AdvReac Severe severe Verified 09/03/21 19:11 [From Cymbalta] headache gabapentin [From Neurontin] AdvReac HEADACHE Verified 09/03/21 19:11 Review of Systems ROS Statement: Those systems with pertinent positive or pertinent negative responses have been documented in the HPI. ROS Other: All systems not noted in ROS Statement are negative. Past Medical History Past Medical History: Hypertension, Thyroid Disorder Additional Past Medical History / Comment(s): HX KIDNEY STONE, CHRONIC BACK PAIN, LOW THYROID, UMBILICAL HERNIA.back pain History of Any Multi-Drug Resistant Organisms: None Reported Past Surgical History: Appendectomy, Cholecystectomy Additional Past Surgical History / Comment(s): PAIN PROCEDURES, multiple kidney stone removals, secondary polycythemia Past Anesthesia/Blood Transfusion Reactions: No Reported Reaction Additional Past Anesthesia/Blood Transfusion Reaction / Comment(s): States needs more sedation to put me asleep. Past Psychological History: No Psychological Hx Reported Smoking Status: Never smoker Past Alcohol Use History: None Reported Past Drug Use History: None Reported - Past Family History Mother History Unknown: Yes Family Medical History: Dementia Father Additional Family Medical History / Comment(s): SMOKER. General Exam Limitations: no limitations General appearance: alert, in no apparent distress, other (Physical well- developed, well-nourished adult male patient in no acute distress.) Eye exam: Present: normal appearance, PERRL, EOMI. Absent: scleral icterus, conjunctival injection, periorbital swelling ENT exam: Present: normal exam, normal oropharynx, mucous membranes moist Respiratory exam: Present: normal lung sounds bilaterally. Absent: respiratory distress, wheezes, rales, rhonchi, stridor Cardiovascular Exam: Present: regular rate, normal rhythm, normal heart sounds. Absent: systolic murmur, diastolic murmur, rubs, gallop, clicks GI/Abdominal exam: Present: soft, normal bowel sounds. Absent: distended, tenderness, guarding, rebound, rigid Back exam: Present: normal inspection, CVA tenderness (R). Absent: CVA tenderness (L) Neurological exam: Present: alert, oriented X3, CN II-XII intact Psychiatric exam: Present: normal affect, normal mood Skin exam: Present: warm, dry, intact, normal color. Absent: rash Course Vital Signs 09/03/21 19:08 Temperature 98.9 F Pulse Rate 85 Respiratory 19 Rate O2 Sat by Pulse 95 Oximetry Medical Decision Making - Medical Decision Making 41-year-old male patient presents requesting antibody infusion after testing positive for COVID. She reports right flank pain with history of kidney stone. Physical examination did reveal right CVA tenderness. Urinalysis showed no evidence for infection or hematuria. He is given pain medication. Upon reevaluation states he is slightly improved but is requesting more pain medication. He was given antibody infusion without any adverse reactions. Discharge and follow-up with his urologist and primary care physician for recheck as soon as possible. Return parameters were discussed in detail. He verbalizes understanding and agrees with this plan. My attending is Dr. Rice. - Lab Data Lab Results 09/03/21 Range/Units 20:49 Urine Color Yellow Urine Appearance Clear (Clear) Urine pH 5.5 (5.0-8.0) Ur Specific [place] 1.039 H (1.001-1.035) Urine Protein 1+ H (Negative) Urine Glucose (UA) Negative (Negative) Urine Ketones 1+ H (Negative) Urine Blood Negative (Negative) Urine Nitrite Negative (Negative) Urine Bilirubin Negative (Negative) Urine Urobilinogen <2.0 (<2.0) mg/dL Ur Leukocyte Esterase Negative (Negative) Urine WBC 3 (0-5) /hpf Ur Squamous Epith Cells <1 (0-4) /hpf Urine Mucus Many H (None) /hpf Disposition Clinical Impression: COVID-19, Flank pain Disposition: HOME SELF-CARE Condition: Good Instructions (If sedation given, give patient instructions): Coronavirus Disease 2019 (COVID-19), Flank Pain (ED) Additional Instructions: Follow up with your primary care physician for recheck as soon as possible. Follow up with urologist. Return for any new, worsening, or concerning symptoms. Is patient prescribed a controlled substance at d/c from ED?: No Referrals: Ryan Loving Jr, DO [Primary Care Provider] - 1-2 days Time of Disposition: 23:14
== END 2021-09-04 00:15 | disposition home or self-care (01) ==
LOC: EC 18:31
DX: U07.1 COVID-19 (principal); R10.9 Unspecified abdominal pain; I10 Essential (primary) hypertension; E07.9 Disorder of thyroid, unspecified; Z87.442 Personal history of urinary calculi; Z90.49 Acquired absence of other specified parts of digestive tract
CPT/HCPCS: 99284; 96365; 96375 ×3; 96376; 96361 ×2; 81001; J2405; J1885; J1170 ×2; J3490

== ENCOUNTER 2021-09-09 14:05 | Emergency (ER) | payer OTHER ==
[2021-09-09 17:03] VITALS: BP 147/91; PULSE 85; RESP 16; TEMP 98.9
[2021-09-09] MEDS ORDERED: DEXAMETHASONE SOD PHOSPHATE 10 MG/ML 1 ML VIAL IVP STA (19:29)
[2021-09-09] MEDS ORDERED: SODIUM CHLORIDE 0.9% 1,000 ML IV STA (19:29)
[2021-09-09] MEDS ORDERED: diphenhydrAMINE 50 MG/ML 1 ML VIAL IVP STA (19:29)
[2021-09-09] MEDS ORDERED: MORPHINE SULFATE 4 MG/ML SYRINGE IVP STA (19:29)
[2021-09-09] MEDS ORDERED: ONDANSETRON 4 MG/2 ML VIAL IVP STA ×2 (19:39→20:47)
--- NOTE | 2021-09-09 20:32 | ED ---
Headache HPI - General Chief Complaint: Headache Stated Complaint: Headache, Fever, unable to swallow Time Seen by Provider: 09/09/21 19:23 Source: RN notes reviewed Mode of arrival: ambulatory Limitations: no limitations - History of Present Illness Initial Comments: Patient is a 41-year-old male that presents to the emergency department complaining of headache. He is Covid-positive received monoclonal antibody infusion. He notes he came in today with a throbbing headache that was unrelieved with at home pain medication. Patient also notes that his throat feels swollen and sore. Patient notes he is able to tolerate oral secretions fluids and soft foods. Patient was otherwise well-appearing. Patient is well- known to this emergency room for kidney stones in pain seeking behaviors. Patient denied any other issues or complaints patient was otherwise well- appearing. He denied any chest pain shortness of breath nausea vomiting diarrhea constipation fever fatigue chills. - Related Data Home Medications Medication Instructions Recorded Confirmed Testosterone Cypionate 200 mg IM Q72H 01/26/19 08/07/21 [Depo-Testosterone] lisinopriL [Zestril] 10 mg PO BID 01/26/19 08/07/21 amLODIPine [Norvasc] 5 mg PO DAILY 04/29/19 08/07/21 Sildenafil Citrate [Sildenafil] 20 mg PO DAILY PRN 10/20/20 08/07/21 Levothyroxine Sodium [Synthroid] 50 mcg PO DAILY 05/17/21 08/07/21 Linaclotide [Linzess] 72 mcg PO DAILY PRN 05/17/21 08/07/21 Omeprazole [PriLOSEC] 20 mg PO DAILY PRN 05/17/21 08/07/21 Albuterol Sulfate [Proair Hfa] 2 puff INHALATION RT-Q4H PRN 08/07/21 08/07/21 Baclofen 20 mg PO BID 08/07/21 08/07/21 Clarithromycin [Biaxin] 500 mg PO Q12HR 08/07/21 08/07/21 Fluticasone Nasal [place] [Flonase 1 spray EA NOSTRIL DAILY 08/07/21 08/07/21 Nasal [place]] Loratadine [Claritin] 10 mg PO DAILY 08/07/21 08/07/21 Pregabalin [Lyrica] 150 mg PO HS 08/07/21 08/07/21 Pregabalin [Lyrica] 300 mg PO DAILY 08/07/21 08/07/21 diphenhydrAMINE [Benadryl] 50 mg PO HS 08/07/21 08/07/21 predniSONE [Deltasone] See Taper PO DAILY 08/07/21 08/07/21 Previous Rx's Medication Instructions Recorded oxyCODONE HCL/ACETAMINOPHEN 1 tab PO Q6HR PRN 30 Days #60 tab 07/22/21 [Percocet 5-325 mg] Allergies Allergy/AdvReac Type Severity Reaction Status Date / Time benzalkonium chloride Allergy Severe Swelling Verified 09/09/21 17:02 duloxetine HCl AdvReac Severe severe Verified 09/09/21 17:02 [From Cymbalta] headache gabapentin [From Neurontin] AdvReac HEADACHE Verified 09/09/21 17:02 Review of Systems ROS Statement: Those systems with pertinent positive or pertinent negative responses have been documented in the HPI. ROS Other: All systems not noted in ROS Statement are negative. Past Medical History Past Medical History: Hypertension, Thyroid Disorder Additional Past Medical History / Comment(s): HX KIDNEY STONE, CHRONIC BACK PAIN, LOW THYROID, UMBILICAL HERNIA.back pain History of Any Multi-Drug Resistant Organisms: None Reported Past Surgical History: Appendectomy, Cholecystectomy Additional Past Surgical History / Comment(s): PAIN PROCEDURES, multiple kidney stone removals, secondary polycythemia Past Anesthesia/Blood Transfusion Reactions: No Reported Reaction Additional Past Anesthesia/Blood Transfusion Reaction / Comment(s): States needs more sedation to put me asleep. Past Psychological History: No Psychological Hx Reported Smoking Status: Never smoker Past Alcohol Use History: None Reported Past Drug Use History: None Reported - Past Family History Mother History Unknown: Yes Family Medical History: Dementia Father Additional Family Medical History / Comment(s): SMOKER. General Exam Limitations: no limitations General appearance: alert, in no apparent distress, obese Head exam: Present: atraumatic, normocephalic, normal inspection Eye exam: Present: normal appearance, PERRL, EOMI. Absent: scleral icterus, conjunctival injection, periorbital swelling ENT exam: Present: normal exam, mucous membranes moist Neck exam: Present: normal inspection Respiratory exam: Present: normal lung sounds bilaterally. Absent: respiratory distress, wheezes, rales, rhonchi, stridor Cardiovascular Exam: Present: regular rate, normal rhythm, normal heart sounds. Absent: systolic murmur, diastolic murmur, rubs, gallop, clicks Extremities exam: Present: normal inspection, full ROM, normal capillary refill. Absent: tenderness, pedal edema, joint swelling, calf tenderness Neurological exam: Present: alert, oriented X3 Psychiatric exam: Present: normal affect, normal mood Skin exam: Present: warm, dry, intact, normal color. Absent: rash Course Vital Signs 09/09/21 16:57 Temperature 98.9 F Pulse Rate 85 Respiratory 16 Rate Blood Pressure 147/91 O2 Sat by Pulse 97 Oximetry Medical Decision Making - Medical Decision Making 41-year-old male with a headache, Covid-positive received monoclonal antibodies ready. 1 L normal saline, 50 mg of Benadryl, 4 mg of Zofran, 4 mg of morphine, 10 mg of Decadron ordered. Patient was sleeping in bed in no apparent distress after medication menstruation. Patient has drug-seeking tendencies with frequent visits to the ER. Case discussed with Dr. Villafana, patient discharge home. Disposition Clinical Impression: COVID-19, Headache Disposition: HOME SELF-CARE Condition: Stable Instructions (If sedation given, give patient instructions): Acute Headache (ED) Additional Instructions: Please return to the Emergency Department if symptoms worsen or any other concerns. Follow-up with primary care 1-2 days. Continue take at home medications as prescribed. Increase fluids. Is patient prescribed a controlled substance at d/c from ED?: No Referrals: Ryan Loving Jr, [Primary Care Provider] - 1-2 days Time of Disposition: 20:31
== END 2021-09-09 21:15 | disposition home or self-care (01) ==
LOC: EC 14:05
DX: U07.1 COVID-19 (principal); E66.9 Obesity, unspecified; I10 Essential (primary) hypertension; Z79.52 Long term (current) use of systemic steroids; Z79.890 Hormone replacement therapy; Z79.899 Other long term (current) drug therapy; Z68.32 Body mass index [BMI] 32.0-32.9, adult
CPT/HCPCS: 99283; 96374; 96375 ×3; 96376; 96361; J2270; J1200; J1100; J2405

== ENCOUNTER → 2021-09-16 | Outpatient (CLI) | payer OTHER ==
[2021-09-16 08:11] VITALS: BP 118/84; PULSE 84; RESP 18; TEMP 98.4
--- NOTE | 2021-09-16 08:26 | P.PN ---
Subjective Progress Note Date: 09/16/21 This is follow-up visit for this 41 years old male ,with chronic history of severe low back pain,he is diagnosed with lumbar spondylosis with lumbar facet arthropathy ,and lumbar degenerative disc disease, and bilateral sacroiliitis, previously we have done radiofrequency thermocoagulation of the medial branches lumbar area, patient get excellent pain relief, and also we have done sacroiliac joint steroid injection to get excellent relief, after the injection patient, he continue to see chiropractors 2-3 times a week, patient and physical therapy in the past ,he is currently doing home exercise daily , as instructed by his chiropractors, he continue to use baclofen 10 mg 4 times a day PRN , and Lyrica 150 mg 3 a day, patient also uses oxycodone 5 mg every 8 hours when necessary, he denies any excessive drowsiness or sleepiness and he continued to have severe low back pain mostly in the buttock area right side, denies any motor or sensory deficit he denies any fever or night sweats, had recent addition to the hospital secondary to Covid infection Physical Examinations : -Constitutiona : Cooperative , not in acute distress . -HEENT : nech : supple , no Lymphadenopathy , normal thyroid size . : eyes : no ptosis , no icterus, no photophobia . - neurologic : Cranial nerve II to XII intact , no focal neurological deffecit . -psychatric : alert , oriented X 3 , appropriate affect , intact judgment and insight . -Lymphatic : no Lymphadenopathy . - musculoskeltal : multiple trigger point identified in the Thoracic paraspinal muscles Lumber spine moter stegnth lower extremities ,thigh and legs 5/5 Right side , 5/5 Left side deep tendon reflexes : normal Knee Jerk , normal ankle Jerk lumber facet Loading Test =positive Right , positive Left Range of motion of the lumbar spine Flexion 30 degrees, extension 10 degrees strait leg raising test = positive at 45 degree Fabere test= positive Right , and positive LT . Sever tenderness over the Sacroiliac joint on the Right . Gaenslen test= positive right . Seated flexion test= positive right . Distraction test= positive right Sacroiliac compression test= positive right Assessment and plan= chronic low back pain secondary to lumbar degenerative disc disease , lumbar spondylosis with lumbar facet arthropathy . And Right sacroiliitis,myofascial pain syndrome thoracic area chronic and current use of high-risk medication (opioids) Patient denies any side effects of the current pain medication and the current treatment/medication helping the patient to do activity of daily living , Diagnoses, prognosis, treatment options, including but not limited to physical therapy, medication management, interventional therapies, and surgery, were discussed with the patient All the questions answered The narcotic consent was signed and patient agreed and understood the side effects and complications of opioid treatment. Patient signed the narcotic agreement, and was orally counseled, not to overuse, not to abuse, not to Divert , not tp sell pain medication, and to take it as prescribed only, Patient was counseled not to drive or operate heavy equipment while using narcotic medication, and advised not to use alcohol or any Illicit drugs while using the narcotis. understanding that lack of compliance with any of the above instructions, will likely to cause discharge from, the pain service, not to renew his narcotic prescriptions [facility] Reviwed and it was apropriate . Urine drug screen ordered Medication managements= patient will be given prescription refills for Lyrica 150 mg 3 times a day I will start patient on Percocet 5/325 every 12 hours when necessary dispense 60 with 1 refill Continue baclofen 10 mg every 6 hours when necessary UDS ordered Today he could benefit from RFA of the medial branch lumbar area bilaterally at L4 5 and L5-S1 , and frrom right side sacroiliac joint steroid injection under fluoroscopy guidance PQRS= - Patient's medications are documented in the chart. -Tobacco use is negative and counseling.Given. -Patient's has not received pneumococcal vaccine. -Advanced care planning discussed, patient not eligible. -Opiate contract signed. -Pain positive and follow-up visit/procedure is scheduled. -Patient's blood pressure measured [ 118/74] , and documented in the record ,and patient will follow up with the primary care. -Patient's weight was measured and body mass index [32.9 ] above the normal limits and counseling was done. and patient instructed to follow-up with the primary care physician. -Patient was not identified as an unhealthy alcohol user Objective - Vital Signs Vital signs: Vital Signs Temp 98.4 F 09/16/21 08:06 Pulse 84 09/16/21 08:06 Resp 18 09/16/21 08:06 BP 118/84 09/16/21 08:06 Pulse Ox 93 L 09/16/21 08:06
== END ==
LOC: PNWHC3 07:51
PROVIDERS: ATTEND Specialist
DX: G89.29 Other chronic pain (principal); M51.36 Other intervertebral disc degeneration, lumbar region; M47.816 Spondylosis without myelopathy or radiculopathy, lumbar region; M46.1 Sacroiliitis, not elsewhere classified; M79.18 Myalgia, other site; Z79.891 Long term (current) use of opiate analgesic; Z88.8 Allergy status to other drugs, medicaments and biological substances; Z88.6 Allergy status to analgesic agent
CPT/HCPCS: 80307; G0482; G0463; 99212

== ENCOUNTER 2021-09-18 16:27 | Emergency (ER) | payer OTHER ==
[2021-09-18 17:01] VITALS: BP 129/84; PULSE 90; RESP 20; TEMP 98.9
[2021-09-18] MEDS ORDERED: diphenhydrAMINE 50 MG/ML 1 ML VIAL IVP STA (17:51)
[2021-09-18] MEDS ORDERED: MORPHINE SULFATE 4 MG/ML SYRINGE IV STA (17:51)
[2021-09-18] MEDS ORDERED: SODIUM CHLORIDE 0.9% 1,000 ML IV STA (17:51)
--- NOTE | 2021-09-18 17:56 | ED ---
General Adult HPI - General Chief complaint: Headache Stated complaint: Headache Time Seen by Provider: 09/18/21 17:40 Source: patient, RN notes reviewed, old records reviewed Mode of arrival: ambulatory Limitations: no limitations - History of Present Illness Initial comments: This is a well-appearing 41-year-old male, alert and oriented 4, presents to the emergency room with a headache it's been ongoing since August 27 when he was diagnosed with Covid. Patient states that he has been in the emergency room multiple times for this headache. States it always on the right side occipital and radiates around to the right side of head. He denies any visual changes. He denies any fevers nausea or vomiting. He states that he has seen his primary care doctor on Thursday was prescribed Decadron for 5 days. He states that he seen his chiropractor today and has had x-rays that were negative. He states that he takes Percocet for his chronic back pain and he has stopped taking that thinking it may be related causing rebound headaches. He does have a history of high blood pressure but his blood pressure he has been monitoring at home and it has been normal systolic in the 120s. He states 4 years ago he had meningitis. He believes this headache is related to his diagnoses of coronavirus in August. -: week(s) (3) Location: head (Right side) Radiation: non-radiation Severity scale (1-10): 8 Quality: other (Throbbing) Consistency: intermittent Improves with: medication (Morphine) Worsens with: none Associated Symptoms: denies other symptoms - Related Data Home Medications Medication Instructions Recorded Confirmed Testosterone Cypionate 200 mg IM Q72H 01/26/19 09/16/21 [Depo-Testosterone] lisinopriL [Zestril] 10 mg PO BID 01/26/19 09/16/21 amLODIPine [Norvasc] 5 mg PO DAILY 04/29/19 09/16/21 Sildenafil Citrate [Sildenafil] 20 mg PO DAILY PRN 10/20/20 09/16/21 Levothyroxine Sodium [Synthroid] 50 mcg PO DAILY 05/17/21 09/16/21 Linaclotide [Linzess] 72 mcg PO DAILY PRN 05/17/21 09/16/21 Omeprazole [PriLOSEC] 20 mg PO DAILY PRN 05/17/21 09/16/21 Albuterol Sulfate [Proair Hfa] 2 puff INHALATION RT-Q4H PRN 08/07/21 09/16/21 Fluticasone Nasal [place] [Flonase 1 spray EA NOSTRIL DAILY 08/07/21 09/16/21 Nasal [place]] Loratadine [Claritin] 10 mg PO DAILY 08/07/21 09/16/21 Pregabalin [Lyrica] 300 mg PO HS 08/07/21 09/16/21 diphenhydrAMINE [Benadryl] 50 mg PO HS 08/07/21 09/16/21 Previous Rx's Medication Instructions Recorded Baclofen 20 mg PO BID PRN #60 tab 09/16/21 Pregabalin [Lyrica] 150 mg PO TID 30 Days #90 cap 09/16/21 oxyCODONE HCL/ACETAMINOPHEN 1 tab PO Q8HR PRN 30 Days #60 tab 09/16/21 [Percocet 5-325 mg] oxyCODONE HCL/ACETAMINOPHEN 1 tab PO Q8HR PRN 30 Days #60 tab 09/16/21 [Percocet 5-325 mg] Allergies Allergy/AdvReac Type Severity Reaction Status Date / Time benzalkonium chloride Allergy Severe Swelling Verified 09/18/21 16:58 duloxetine HCl AdvReac Severe severe Verified 09/18/21 16:58 [From Cymbalta] headache gabapentin [From Neurontin] AdvReac HEADACHE Verified 09/18/21 16:58 Review of Systems ROS Statement: Those systems with pertinent positive or pertinent negative responses have been documented in the HPI. ROS Other: All systems not noted in ROS Statement are negative. Past Medical History Past Medical History: Hypertension, Thyroid Disorder Additional Past Medical History / Comment(s): HX KIDNEY STONE, CHRONIC BACK PAIN, LOW THYROID, UMBILICAL HERNIA.back pain History of Any Multi-Drug Resistant Organisms: None Reported Past Surgical History: No Surgical Hx Reported Additional Past Surgical History / Comment(s): PAIN PROCEDURES, multiple kidney stone removals, secondary polycythemia Past Anesthesia/Blood Transfusion Reactions: No Reported Reaction Additional Past Anesthesia/Blood Transfusion Reaction / Comment(s): States needs more sedation to put me asleep. Past Psychological History: No Psychological Hx Reported Smoking Status: Never smoker Past Alcohol Use History: None Reported Past Drug Use History: None Reported - Past Family History Mother History Unknown: Yes Family Medical History: Dementia Father Additional Family Medical History / Comment(s): SMOKER. General Exam Limitations: no limitations General appearance: alert, in no apparent distress Head exam: Present: atraumatic, normocephalic, normal inspection Eye exam: Present: normal appearance, PERRL, EOMI. Absent: scleral icterus, conjunctival injection, nystagmus, periorbital swelling, periorbital tenderness Pupils: Present: normal accommodation ENT exam: Present: normal exam, normal oropharynx, mucous membranes moist Neck exam: Present: normal inspection, full ROM. Absent: tenderness, meningismus, lymphadenopathy, thyromegaly Respiratory exam: Present: normal lung sounds bilaterally. Absent: respiratory distress, wheezes, rales, rhonchi, stridor Cardiovascular Exam: Present: regular rate, normal rhythm, normal heart sounds. Absent: systolic murmur, diastolic murmur, rubs, gallop, clicks Extremities exam: Present: normal inspection, full ROM, normal capillary refill. Absent: tenderness, pedal edema, joint swelling, calf tenderness Back exam: Present: normal inspection, full ROM. Absent: tenderness, CVA tenderness (R), CVA tenderness (L), rash noted Neurological exam: Present: alert, oriented X3 Psychiatric exam: Present: normal affect, normal mood, anxious Skin exam: Present: warm, dry, intact, normal color. Absent: rash, cyanosis, diaphoretic Course Vital Signs 09/18/21 16:58 Temperature 98.9 F Pulse Rate 90 Respiratory 20 Rate Blood Pressure 129/84 O2 Sat by Pulse 97 Oximetry Medical Decision Making - Medical Decision Making Patient presents to the emergency room with complaints of headache. He has no focal neurological deficits. States that the pain is right sided occipital. He has no vision changes. He believes this is related to Covid he had in August. He has had this headache for over 2 weeks and is similar to his previous headaches which he has been seen in the emergency room here multiple times. He has seen his primary care doctor who put him on steroids and he is on day 2 of his steroids. He states he still has pain which is why he came to the ER today. Case discussed with Dr. Santillan and a CT venogram was done and negative. Patient requesting additional pain medication, dilaudid, to help relieve this pain since he did not get relief with Benadryl and morphine. He is agreeable to being discharged home after this dose of medication and following up with his primary care doctor and neurology. Disposition Clinical Impression: Migraine headache Disposition: HOME SELF-CARE Condition: Good Instructions (If sedation given, give patient instructions): Acute Headache (ED) Additional Instructions: Continue your pain medications as prescribed by your primary care doctor. Follow-up with the primary care doctor this week and neurology. Return to the emergency room with any new or concerning symptoms Is patient prescribed a controlled substance at d/c from ED?: No Referrals: Ryan Loving Jr, DO [Primary Care Provider] - 1-2 days Umer Mayes MD [STAFF PHYSICIAN] - 1-2 days Time of Disposition: 20:03
--- NOTE | 2021-09-18 19:34 | CT ---
EXAMINATION TYPE: CT Venogram Head DATE OF EXAM: 09/18/2021 7:18 PM COMPARISON: HISTORY: Headache x1 week. CT DLP: 1173.4 mGycm Automated exposure control for dose reduction was used. TECHNIQUE: Performed with IV Contrast, patient injected with 100ml mL of Isovue 300. . FINDINGS: There are 3-D post processed images. There is normal contrast opacification of the transverse sinus and sigmoid sinus. There is normal enh ancement of the jugular veins. There is superior sagittal sinus and the cerebral vein show normal con trast opacification. There is no evidence of a filling defect. IMPRESSION: NORMAL CT ANGIOGRAM OF THE BRAIN. NO EVIDENCE OF SINUS VEIN THROMBOSIS.
[2021-09-18] MEDS ORDERED: HYDROmorphone 0.5 MG/0.5 ML SYRINGE IVP STA (20:10)
== END 2021-09-18 20:53 | disposition home or self-care (01) ==
LOC: EC 16:27
DX: G43.909 Migraine, unspecified, not intractable, without status migrainosus (principal); I10 Essential (primary) hypertension; E07.9 Disorder of thyroid, unspecified; Z87.442 Personal history of urinary calculi
CPT/HCPCS: 99284; 96374; 96375 ×2; 70496; J2270; J1200; J1170; Q9967

== ENCOUNTER → 2021-09-20 | Outpatient (CLI) | payer OTHER ==
[~2021-09-20] MED LIST changes: -LACTATED RINGERS 1,000 ML IV SCH; +SODIUM CHLORIDE 0.9% 500 ML 500 ML in EMPTY BAG 1 BAG IV PRN
[2021-09-20 09:26] VITALS: BP 144/64; PULSE 80; RESP 15; TEMP 98
[2021-09-20 09:37] LABS: Anisocytosis Slight; HCT 46.7 % (39.0-53.0); HGB 14.5 gm/dL (13.0-17.5); Hypochromasia Moderate; MCH 25.8 pg (25.0-35.0); MCHC 31.1 g/dL (31.0-37.0); Mean Platelet Volume 8.5; Platelet Count 456 k/uL (150-450); RBC 5.63 m/uL (4.30-5.90); RDW 17.2 % (11.5-15.5); WBC 7.8 k/uL (3.8-10.6)
== END | disposition home or self-care (01) ==
LOC: PROCWHC3 09:00
PROVIDERS: ATTEND Internal Medicine Hematology & Oncology
DX: D45 Polycythemia vera (principal)
CPT/HCPCS: 36415; 85027

== ENCOUNTER 2021-09-22 13:50 | Emergency (ER) | payer OTHER ==
[2021-09-22 14:20] VITALS: TEMP 98.1
[2021-09-22] MEDS ORDERED: diphenhydrAMINE 50 MG/ML 1 ML VIAL IVP STA (15:22)
[2021-09-22] MEDS ORDERED: METOCLOPRAMIDE 5 MG/ML 2 ML VIAL IVP STA (15:22)
[2021-09-22] MEDS ORDERED: KETOROLAC 15 MG/ML 1 ML VIAL IVP STA (15:22)
[2021-09-22] MEDS ORDERED: SODIUM CHLORIDE 0.9% 1,000 ML IV STA (15:22)
[2021-09-22 16:39] LABS: Amorphous Sediment,Urine Moderate /hpf; Appearance,Urine Cloudy (Clear); Bilirubin,Urine Negative (Negative); Blood,Urine Negative (Negative); Color,Urine Light Yellow; Glucose,Urine (UA) Negative (Negative); Ketones,Urine Negative (Negative); Leukocyte Esterase,Urine Negative (Negative); Mucus,Urine Rare /hpf; Nitrite,Urine Negative (Negative); Protein,Urine Negative (Negative); Specific Gravity,Urine 1.013 (1.001-1.035); Urobilinogen,Urine <2.0 mg/dL (<2.0); WBC,Urine 2 /hpf (0-5)
[2021-09-22 16:50] VITALS: RESP 20
[2021-09-22] MEDS ORDERED: MORPHINE SULFATE 4 MG/ML SYRINGE IVP STA (16:53)
[2021-09-22] MEDS ORDERED: HYDROmorphone 0.5 MG/0.5 ML SYRINGE IVP STA (17:33)
--- NOTE | 2021-09-22 18:03 | ED ---
General Adult HPI - General Chief complaint: Headache Stated complaint: Headache Time Seen by Provider: 09/22/21 14:29 Source: patient, RN notes reviewed Mode of arrival: ambulatory Limitations: no limitations - History of Present Illness Initial comments: 41-year-old male presents to the emergency Department with complaints of migraine headache, onset 2 days ago. Patient states he attempted to treat his headache with OTC medications to avoid coming to the emergency department. Patient reports multiple emergency department for this same complaint over the last few weeks. Patient states he has awaiting an appointment with his neurologist and is anticipating receiving injections due to this ongoing, recurrent discomfort. Patient reports sensitivity to light and sound; mild nausea as well. States headache is present on the right side only. Attributes recurrent nature of his headaches to a recent Covid infection. Patient denies fever, chills, dizziness, vision changes, chest pain, difficulty breathing, abdominal pain, diarrhea, or dysuria. - Related Data Home Medications Medication Instructions Recorded Confirmed Testosterone Cypionate 200 mg IM Q72H 01/26/19 09/20/21 [Depo-Testosterone] lisinopriL [Zestril] 10 mg PO BID 01/26/19 09/20/21 amLODIPine [Norvasc] 5 mg PO DAILY 04/29/19 09/20/21 Sildenafil Citrate [Sildenafil] 20 mg PO DAILY PRN 10/20/20 09/20/21 Levothyroxine Sodium [Synthroid] 50 mcg PO DAILY 05/17/21 09/20/21 Linaclotide [Linzess] 72 mcg PO DAILY PRN 05/17/21 09/20/21 Omeprazole [PriLOSEC] 20 mg PO DAILY PRN 05/17/21 09/20/21 Albuterol Sulfate [Proair Hfa] 2 puff INHALATION RT-Q4H PRN 08/07/21 09/20/21 Fluticasone Nasal [place] [Flonase 1 spray EA NOSTRIL DAILY 08/07/21 09/20/21 Nasal [place]] Loratadine [Claritin] 10 mg PO DAILY 08/07/21 09/20/21 Pregabalin [Lyrica] 300 mg PO HS 08/07/21 09/20/21 diphenhydrAMINE [Benadryl] 50 mg PO HS 08/07/21 09/20/21 Previous Rx's Medication Instructions Recorded Baclofen 20 mg PO BID PRN #60 tab 09/16/21 Pregabalin [Lyrica] 150 mg PO TID 30 Days #90 cap 09/16/21 oxyCODONE HCL/ACETAMINOPHEN 1 tab PO Q8HR PRN 30 Days #60 tab 09/16/21 [Percocet 5-325 mg] oxyCODONE HCL/ACETAMINOPHEN 1 tab PO Q8HR PRN 30 Days #60 tab 09/16/21 [Percocet 5-325 mg] Allergies Allergy/AdvReac Type Severity Reaction Status Date / Time benzalkonium chloride Allergy Severe Swelling Verified 09/22/21 14:20 duloxetine HCl AdvReac Severe severe Verified 09/22/21 14:20 [From Cymbalta] headache gabapentin [From Neurontin] AdvReac HEADACHE Verified 09/22/21 14:20 Review of Systems ROS Statement: Those systems with pertinent positive or pertinent negative responses have been documented in the HPI. ROS Other: All systems not noted in ROS Statement are negative. Past Medical History Past Medical History: Hypertension, Thyroid Disorder Additional Past Medical History / Comment(s): HX KIDNEY STONE, CHRONIC BACK PAIN, LOW THYROID, UMBILICAL HERNIA.back pain History of Any Multi-Drug Resistant Organisms: None Reported Past Surgical History: No Surgical Hx Reported Additional Past Surgical History / Comment(s): PAIN PROCEDURES, multiple kidney stone removals, secondary polycythemia Past Anesthesia/Blood Transfusion Reactions: No Reported Reaction Additional Past Anesthesia/Blood Transfusion Reaction / Comment(s): States needs more sedation to put me asleep. Past Psychological History: No Psychological Hx Reported Smoking Status: Never smoker Past Alcohol Use History: None Reported Past Drug Use History: None Reported - Past Family History Mother History Unknown: Yes Family Medical History: Dementia Father Additional Family Medical History / Comment(s): SMOKER. General Exam Limitations: no limitations (Well-developed, well-nourished male in no acute distress. Wearing headphones to minimize noise. Initial temperature 98.1, pulse 65, respirations 18, blood pressure 114/79, pulse ox 100% on room air.) General appearance: alert, in no apparent distress Head exam: Present: atraumatic, normocephalic, normal inspection Eye exam: Present: normal appearance, PERRL, EOMI. Absent: scleral icterus, conjunctival injection, nystagmus, periorbital swelling, periorbital tenderness ENT exam: Present: normal exam, normal oropharynx, mucous membranes moist Neck exam: Present: normal inspection. Absent: tenderness, meningismus, lymphadenopathy Respiratory exam: Present: normal lung sounds bilaterally. Absent: respiratory distress, wheezes, rales, rhonchi, stridor Cardiovascular Exam: Present: regular rate, normal rhythm, normal heart sounds. Absent: systolic murmur, diastolic murmur, rubs, gallop, clicks GI/Abdominal exam: Present: soft, normal bowel sounds. Absent: distended, tenderness, guarding, rebound, rigid Neurological exam: Present: alert, oriented X3, CN II-XII intact Expanded Patient oriented to: Present: person, place, time Speech: Present: fluid speech Cranial nerves: EOM's Intact: Normal, Tongue Deviation: Normal Motor strength exam: RUE: 5, LUE: 5, RLE: 5, LLE: 5 Eye Response: (4) open spontaneously Motor Response: (6) obeys commands Verbal Response: (5) oriented Psychiatric exam: Present: normal affect, normal mood Skin exam: Present: warm, dry, intact, normal color. Absent: rash Course Vital Signs 09/22/21 09/22/21 09/22/21 14:18 16:47 18:28 Temperature 98.1 F 98.1 F Pulse Rate 65 92 80 Respiratory 18 20 20 Rate Blood Pressure 114/79 133/81 124/72 O2 Sat by Pulse 100 98 98 Oximetry Medical Decision Making - Medical Decision Making 41-year-old male with a history of migraine headaches and recent Covid illness presents to the emergency department for evaluation of migraine headache. Upon exam, patient is noted to be wearing headphones to minimize noise stimulation. Request to have the lights to be dimmed. Patient states this current headache is consistent with previous ones for which he has had a full workup and that he is here needing pain medication. No focal neurological deficits are appreciated. Tolerating oral intake without difficulty. Patient was given IV fluids, migraine cocktail, and additional doses of pain medications. Patient was observed to be resting comfortably and watching television on his phone. Reports feeling improved. Patient will be discharged home to follow up with his primary care provider and neurology; he also sees pain management. Return para meters were discussed in detail. Patient verbalizes understanding and agrees with this plan. This patient's care was discussed with my attending Dr. Santillan. - Lab Data Lab Results 09/22/21 Range/Units 15:50 Urine Color Light Yellow Urine Appearance Cloudy (Clear) Urine pH 8.0 (5.0-8.0) Ur Specific [place] 1.013 (1.001-1.035) Urine Protein Negative (Negative) Urine Glucose (UA) Negative (Negative) Urine Ketones Negative (Negative) Urine Blood Negative (Negative) Urine Nitrite Negative (Negative) Urine Bilirubin Negative (Negative) Urine Urobilinogen <2.0 (<2.0) mg/dL Ur Leukocyte Esterase Negative (Negative) Urine WBC 2 (0-5) /hpf Amorphous Sediment Moderate H (None) /hpf Urine Mucus Rare H (None) /hpf Disposition Clinical Impression: Migraine headache Disposition: HOME SELF-CARE Condition: Stable Instructions (If sedation given, give patient instructions): Acute Headache (ED) Additional Instructions: Follow up as scheduled. Consider Unasom as an alternative to Benadryl. Continue regular home medication regimen. Return to the Emergency Department with any new, worsening, or concerning symptoms. Is patient prescribed a controlled substance at d/c from ED?: No Referrals: Ryan Loving Jr, [Primary Care Provider] - 1-2 days Time of Disposition: 18:03
[2021-09-22 18:29] VITALS: BP 124/72; PULSE 80
== END 2021-09-22 18:29 | disposition home or self-care (01) ==
LOC: EC 13:50
DX: G43.909 Migraine, unspecified, not intractable, without status migrainosus (principal); I10 Essential (primary) hypertension; Z88.8 Allergy status to other drugs, medicaments and biological substances
CPT/HCPCS: 81001; 99284; 96374; 96375; 96361; J2270; J1200; J2765; J1885; J1170

== ENCOUNTER 2021-09-23 15:49 | Emergency (ER) | payer OTHER ==
[2021-09-23 16:29] VITALS: RESP 16; TEMP 98
[2021-09-23] MEDS ORDERED: KETOROLAC 15 MG/ML 1 ML VIAL IM STA (17:10)
[2021-09-23] MEDS ORDERED: HYDROmorphone 1 MG/ML 1 ML SYRINGE IM STA (17:10)
--- NOTE | 2021-09-23 17:11 | ED ---
Headache HPI - General Chief Complaint: Headache Stated Complaint: Headaches Time Seen by Provider: 09/23/21 16:50 Mode of arrival: ambulatory Limitations: no limitations - History of Present Illness Initial Comments: 41 year-old male patient presents to the emergency department for evaluation of right sided headache. States the headaches have been frequent since having COVID in August. He has been seen multiple times both in ER and by his primary care physician. States that he generally takes percocet at home but his PCP told him to stop taking it due to concerns for too much acetaminophen and his testosterone levels. He did give him prescription for topamax but he cannot start it until tomorrow. States that that they are also trying to get him in to see the neurologist so he can get injections. Patient states the pain seems to be worsening. Starts in the back of his head and radiates around the right side to the backs of his eyes. His any persistent fever. Denies blurred vision, double vision, numbness, tingling, weakness to his extremities. Denies any dizziness or syncope. - Related Data Home Medications Medication Instructions Recorded Confirmed Testosterone Cypionate 200 mg IM Q72H 01/26/19 09/20/21 [Depo-Testosterone] lisinopriL [Zestril] 10 mg PO BID 01/26/19 09/20/21 amLODIPine [Norvasc] 5 mg PO DAILY 04/29/19 09/20/21 Sildenafil Citrate [Sildenafil] 20 mg PO DAILY PRN 10/20/20 09/20/21 Levothyroxine Sodium [Synthroid] 50 mcg PO DAILY 05/17/21 09/20/21 Linaclotide [Linzess] 72 mcg PO DAILY PRN 05/17/21 09/20/21 Omeprazole [PriLOSEC] 20 mg PO DAILY PRN 05/17/21 09/20/21 Albuterol Sulfate [Proair Hfa] 2 puff INHALATION RT-Q4H PRN 08/07/21 09/20/21 Fluticasone Nasal [place] [Flonase 1 spray EA NOSTRIL DAILY 08/07/21 09/20/21 Nasal [place]] Loratadine [Claritin] 10 mg PO DAILY 08/07/21 09/20/21 Pregabalin [Lyrica] 300 mg PO HS 08/07/21 09/20/21 diphenhydrAMINE [Benadryl] 50 mg PO HS 08/07/21 09/20/21 Previous Rx's Medication Instructions Recorded Baclofen 20 mg PO BID PRN #60 tab 09/16/21 Pregabalin [Lyrica] 150 mg PO TID 30 Days #90 cap 09/16/21 oxyCODONE HCL/ACETAMINOPHEN 1 tab PO Q8HR PRN 30 Days #60 tab 09/16/21 [Percocet 5-325 mg] oxyCODONE HCL/ACETAMINOPHEN 1 tab PO Q8HR PRN 30 Days #60 tab 09/16/21 [Percocet 5-325 mg] Allergies Allergy/AdvReac Type Severity Reaction Status Date / Time benzalkonium chloride Allergy Severe Swelling Verified 09/23/21 16:29 duloxetine HCl AdvReac Severe severe Verified 09/23/21 16:29 [From Cymbalta] headache gabapentin [From Neurontin] AdvReac HEADACHE Verified 09/23/21 16:29 Review of Systems ROS Statement: Those systems with pertinent positive or pertinent negative responses have been documented in the HPI. ROS Other: All systems not noted in ROS Statement are negative. Past Medical History Past Medical History: Hypertension, Thyroid Disorder Additional Past Medical History / Comment(s): HX KIDNEY STONE, CHRONIC BACK PAIN, LOW THYROID, UMBILICAL HERNIA.back pain History of Any Multi-Drug Resistant Organisms: None Reported Past Surgical History: No Surgical Hx Reported Additional Past Surgical History / Comment(s): PAIN PROCEDURES, multiple kidney stone removals, secondary polycythemia Past Anesthesia/Blood Transfusion Reactions: No Reported Reaction Additional Past Anesthesia/Blood Transfusion Reaction / Comment(s): States needs more sedation to put me asleep. Past Psychological History: No Psychological Hx Reported Smoking Status: Never smoker Past Alcohol Use History: None Reported Past Drug Use History: None Reported - Past Family History Mother History Unknown: Yes Family Medical History: Dementia Father Additional Family Medical History / Comment(s): SMOKER. General Exam Limitations: no limitations General appearance: alert, in no apparent distress, other (This a well- developed, well-nourished adult male in no acute distress.) Eye exam: Present: normal appearance, PERRL, EOMI. Absent: scleral icterus, conjunctival injection, periorbital swelling Respiratory exam: Present: normal lung sounds bilaterally. Absent: respiratory distress, wheezes, rales, rhonchi, stridor Cardiovascular Exam: Present: regular rate, normal rhythm, normal heart sounds. Absent: systolic murmur, diastolic murmur, rubs, gallop, clicks GI/Abdominal exam: Present: soft, normal bowel sounds. Absent: distended, tenderness, guarding, rebound, rigid Neurological exam: Present: alert, oriented X3, CN II-XII intact Expanded Speech: Present: fluid speech Cranial nerves: EOM's Intact: Normal Motor strength exam: RUE: 5, LUE: 5, RLE: 5, LLE: 5 Psychiatric exam: Present: normal affect, normal mood Skin exam: Present: warm, dry, intact, normal color Course Vital Signs 09/23/21 16:25 Temperature 98 F Pulse Rate 94 Respiratory 16 Rate Blood Pressure 135/89 O2 Sat by Pulse 97 Oximetry Medical Decision Making - Medical Decision Making 41-year-old male patient presented to the emergency department today for evalu ation of right sided headache. Headaches have been persistent since being diagnosed with ovarian in August. He has had multiple emergency department visits, had negative computed tomography scan of the brain. Had negative CTA of the brain. He is requesting morphine or Dilaudid to help with his symptoms. States that other medications do not seem to work very well. Physical examination is unremarkable. He is neurologically intact with no focal deficits. He will be given IM injection of Toradol and Dilaudid and discharged. Return parameters were discussed in detail. He verbalizes understanding and agrees with this plan. My attending is Dr. Rice. Disposition Clinical Impression: Headache Disposition: HOME SELF-CARE Condition: Good Instructions (If sedation given, give patient instructions): General Headache (ED) Additional Instructions: Follow-up with your primary care physician or neurologist as you have planned. Started taking all medications for headaches. Return for any new, worsening, or concerning symptoms. Is patient prescribed a controlled substance at d/c from ED?: No Referrals: Ryan Loving Jr, DO [Primary Care Provider] - 1-2 days Time of Disposition: 17:10
[2021-09-23 17:38] VITALS: BP 126/84; PULSE 93
== END 2021-09-23 17:38 | disposition home or self-care (01) ==
LOC: EC 15:49
DX: R51.9 Headache, unspecified (principal); E78.5 Hyperlipidemia, unspecified; I10 Essential (primary) hypertension; Z88.8 Allergy status to other drugs, medicaments and biological substances; Z79.890 Hormone replacement therapy; Z79.899 Other long term (current) drug therapy
CPT/HCPCS: 99283; 96372 ×2; J1170; J1885

== ENCOUNTER → 2021-10-02 | Outpatient (CLI) | payer OTHER ==
--- NOTE | 2021-10-02 13:28 | P.PN ---
Subjective Progress Note Date: 10/02/21 This is follow-up visit for this 41 years old male ,with chronic history of severe low back pain,he is diagnosed with lumbar spondylosis with lumbar facet arthropathy ,and lumbar degenerative disc disease, and bilateral sacroiliitis, previously we have done radiofrequency thermocoagulation of the medial branches lumbar area, patient get excellent pain relief, and also we have done sacroiliac joint steroid injection to get excellent relief, after the injection patient, he continue to see chiropractors 2-3 times a week, patient and physical therapy in the past ,he is currently doing home exercise daily , as instructed by his chiropractors, he continue to use baclofen 10 mg 4 times a day PRN , and Lyrica 150 mg 3 a day, patient also uses oxycodone 5 mg every 8 hours when necessary, he denies any excessive drowsiness or sleepiness and he continued to have severe low back pain mostly in the buttock area right side, denies any motor or sensory deficit he denies any fever or night sweats, had recent addition to the hospital secondary to Covid infection,patient here today because he is complaining of severe headache,he had multiple visits to the emergency room to treat his headache without any relief,had recent CT angiogram of the brain which was negative for any abnormalities, vision denies any motor or sensory deficits he denies any visual change. He denies any aura and he reported that the headache radiates from the base of the skull to the top of the head Physical Examinations : -Constitutiona : Cooperative , not in acute distress . -HEENT : nech : supple , no Lymphadenopathy , normal thyroid size . : eyes : no ptosis , no icterus, no photophobia . - neurologic : Cranial nerve II to XII intact , no focal neurological deffecit . -psychatric : alert , oriented X 3 , appropriate affect , intact judgment and insight . -Lymphatic : no Lymphadenopathy . - musculoskeltal : Cervical Spine motor stregnth in the deltoid and biceps, normal right side , normal Left side motor stregnth biceps and the wrist extensors normal right side ,normal left side . motor stregnth in the triceps muscle . normal Right side , normal Left side deep tendon reflexes normal at the biceps , normal at Brachioradialis , normal at triceps. cervical facet loading test: Positive Bilaterally severe tenderness over the occipital nerves bilaterally Lumber spine moter stegnth lower extremities ,thigh and legs 5/5 Right side , 5/5 Left side Assessment and plan= occipital neuralgia Severe intractable headache chronic low back pain secondary to lumbar degenerative disc disease , lumbar spondylosis with lumbar facet arthropathy . And Right sacroiliitis,myofascial pain syndrome thoracic area chronic and current use of high-risk medication (opioids) Patient denies any side effects of the current pain medication and the current treatment/medication helping the patient to do activity of daily living , Diagnoses, prognosis, treatment options, including but not limited to physical therapy, medication management, interventional therapies, and surgery, were discussed with the patient All the questions answered The narcotic consent was signed and patient agreed and understood the side effects and complications of opioid treatment. Patient signed the narcotic agreement, and was orally counseled, not to overuse, not to abuse, not to Divert , not tp sell pain medication, and to take it as prescribed only, Patient was counseled not to drive or operate heavy equipment while using narcotic medication, and advised not to use alcohol or any Illicit drugs while using the narcotis. understanding that lack of compliance with any of the above instructions, will likely to cause discharge from, the pain service, not to renew his narcotic prescriptions [facility] Reviwed and it was apropriate . Urine drug screen ordered Medication managements= he could benefit fromvisit with codeine 1 tablet every 4 hours dispense 20 could benefit from a could benefit from occipital nerve block bilaterally continue his Percocet, and Lyrica, and baclofen as prescribed
[2021-10-02 13:35] VITALS: BP 146/98; PULSE 79; RESP 18
== END ==
LOC: PNWHC3 11:53
PROVIDERS: ATTEND Specialist
DX: M54.81 Occipital neuralgia (principal); G89.29 Other chronic pain; M51.36 Other intervertebral disc degeneration, lumbar region; M47.816 Spondylosis without myelopathy or radiculopathy, lumbar region; M46.1 Sacroiliitis, not elsewhere classified; M79.18 Myalgia, other site; Z79.891 Long term (current) use of opiate analgesic; Z88.8 Allergy status to other drugs, medicaments and biological substances; Z88.6 Allergy status to analgesic agent
CPT/HCPCS: 99211

== ENCOUNTER 2021-10-29 10:38 | Emergency (ER) | payer OTHER ==
[2021-10-29 10:50] VITALS: RESP 18; TEMP 97.7
[2021-10-29 11:09] LABS: Appearance,Urine Clear (Clear); Bilirubin,Urine Negative (Negative); Blood,Urine Negative (Negative); Color,Urine Colorless; Glucose,Urine (UA) Negative (Negative); Ketones,Urine Negative (Negative); Leukocyte Esterase,Urine Negative (Negative); Nitrite,Urine Negative (Negative); PH, Urine 6.5 (5.0-8.0); Protein,Urine Negative (Negative); Specific Gravity,Urine 1.002 (1.001-1.035); Urobilinogen,Urine <2.0 mg/dL (<2.0)
[2021-10-29] MEDS ORDERED: IOPAMIDOL CONTRAST (ORAL USE) VIAL PO PRN (12:30)
[2021-10-29] MEDS ORDERED: ONDANSETRON 4 MG/2 ML VIAL IVP STA (12:30)
[2021-10-29] MEDS ORDERED: SODIUM CHLORIDE 0.9% 1,000 ML IV STA ×2 (12:30)
[2021-10-29] MEDS ORDERED: HYDROmorphone 0.5 MG/0.5 ML SYRINGE IVP STA (12:30)
--- NOTE | 2021-10-29 12:52 | ED ---
Abdominal Pain HPI - General Chief Complaint: Abdominal Pain Stated Complaint: poss kidney stone Time Seen by Provider: 10/29/21 11:33 Source: patient Mode of arrival: ambulatory Limitations: no limitations - History of Present Illness Initial Comments: Patient is a 41-year-old male with a past medical history of multiple kidney stones status post multiple stents, chronic back pain who presents to the emergency department with abdominal pain since 2 AM last night. Patient reports the pain as aching and burning in the right lower quadrant, 8/10 in severity with radiation to the right upper quadrant and right flank. He reports this pain is similar to his previous kidney stones. Patient did take a Percocet with no relief of pain. Patient has associated nausea that started when he got to the hospital. He also reports dysuria, urinary hesitancy, urinary urgency. Patient denies chest pain, fever, chills, and vomiting. Patient reports history of cholecystectomy and appendectomy. -: hour(s) (since 2 AM) Location: RLQ Radiation: RUQ, suprapubic, R flank Migration to: no migration Severity scale (1-10): 8 Quality: aching, burning Consistency: constant Worsens With: nothing Associated Symptoms: nausea, dysuria, other (urinary frequency, urinary hesitancy) Treatments Prior to Arrival: other (percocet ) - Related Data Home Medications Medication Instructions Recorded Confirmed Testosterone Cypionate 200 mg IM Q72H 01/26/19 10/25/21 [Depo-Testosterone] lisinopriL [Zestril] 10 mg PO BID 01/26/19 10/25/21 amLODIPine [Norvasc] 5 mg PO DAILY 04/29/19 10/25/21 Sildenafil Citrate [Sildenafil] 20 mg PO DAILY PRN 10/20/20 10/25/21 Levothyroxine Sodium [Synthroid] 50 mcg PO DAILY 05/17/21 10/25/21 Linaclotide [Linzess] 72 mcg PO DAILY PRN 05/17/21 10/25/21 Omeprazole [PriLOSEC] 20 mg PO DAILY PRN 05/17/21 10/25/21 Albuterol Sulfate [Proair Hfa] 2 puff INHALATION RT-Q4H PRN 08/07/21 10/25/21 Fluticasone Nasal [place] [Flonase 1 spray EA NOSTRIL DAILY PRN 08/07/21 10/25/21 Nasal [place]] Loratadine [Claritin] 10 mg PO DAILY 08/07/21 10/25/21 Pregabalin [Lyrica] 300 mg PO HS 08/07/21 10/25/21 diphenhydrAMINE [Benadryl] 50 mg PO HS 08/07/21 10/25/21 Topiramate [Topamax] 50 mg PO HS 09/30/21 10/25/21 Topiramate [Topamax] 75 mg PO DAILY 09/30/21 10/25/21 Previous Rx's Medication Instructions Recorded Baclofen 20 mg PO BID PRN #60 tab 09/16/21 Pregabalin [Lyrica] 150 mg PO TID 30 Days #90 cap 09/16/21 oxyCODONE HCL/ACETAMINOPHEN 1 tab PO Q8HR PRN 30 Days #60 tab 09/16/21 [Percocet 5-325 mg] Allergies Allergy/AdvReac Type Severity Reaction Status Date / Time benzalkonium chloride Allergy Severe Swelling Verified 10/29/21 10:50 duloxetine HCl AdvReac Severe severe Verified 10/29/21 10:50 [From Cymbalta] headache gabapentin [From Neurontin] AdvReac HEADACHE Verified 10/29/21 10:50 Review of Systems ROS Statement: Those systems with pertinent positive or pertinent negative responses have been documented in the HPI. ROS Other: All systems not noted in ROS Statement are negative. Past Medical History Past Medical History: Hypertension, Thyroid Disorder Additional Past Medical History / Comment(s): HX KIDNEY STONE, CHRONIC BACK PAIN, LOW THYROID, UMBILICAL HERNIA.back pain, had covid 08/25/21 History of Any Multi-Drug Resistant Organisms: None Reported Past Surgical History: No Surgical Hx Reported Additional Past Surgical History / Comment(s): PAIN PROCEDURES, multiple kidney stone removals, secondary polycythemia Past Anesthesia/Blood Transfusion Reactions: No Reported Reaction Additional Past Anesthesia/Blood Transfusion Reaction / Comment(s): States needs more sedation to put me asleep. Past Psychological History: No Psychological Hx Reported Smoking Status: Never smoker Past Alcohol Use History: None Reported Past Drug Use History: None Reported - Past Family History Mother History Unknown: Yes Family Medical History: Dementia Father Additional Family Medical History / Comment(s): SMOKER. General Exam Limitations: no limitations General appearance: alert, in no apparent distress Head exam: Present: atraumatic, normocephalic, normal inspection Eye exam: Present: normal appearance, PERRL, EOMI. Absent: scleral icterus, conjunctival injection, periorbital swelling Neck exam: Present: normal inspection, full ROM. Absent: tenderness, meningismus, lymphadenopathy Respiratory exam: Present: normal lung sounds bilaterally. Absent: respiratory distress, wheezes, rales, rhonchi, stridor Cardiovascular Exam: Present: regular rate, normal rhythm, normal heart sounds. Absent: systolic murmur, diastolic murmur, rubs, gallop, clicks GI/Abdominal exam: Present: soft, tenderness, normal bowel sounds. Absent: distended, guarding, rebound, rigid Back exam: Present: normal inspection, full ROM, tenderness (right sided, due to pre-existing back pain), CVA tenderness (R). Absent: paraspinal tenderness, vertebral tenderness, rash noted Neurological exam: Present: alert, oriented X3, CN II-XII intact Psychiatric exam: Present: normal affect, normal mood Skin exam: Present: warm, dry, intact, normal color. Absent: rash Course Vital Signs 10/29/21 10:47 Temperature 97.7 F Pulse Rate 79 Respiratory 18 Rate Blood Pressure 143/92 O2 Sat by Pulse 98 Oximetry Medical Decision Making - Medical Decision Making This is a 41-year-old male who presents with right lower quadrant pain since 2 AM last night. Pain radiates to the right upper quadrant and right flank. Labs are unremarkable and CT reveals no acute process. Pain is controlled with Dilaudid. Spoke with patient at this time there is no known etiology for pain as there are no stones or hydronephrosis on CT. Patient to follow up with primary care for further evaluation. - Lab Data Result diagrams: 10/29/21 12:42 10/29/21 12:42 Lab Results 10/29/21 10/29/21 10/29/21 Range/Units 10:56 12:42 12:42 WBC 8.8 (3.8-10.6) k/uL RBC 6.11 H (4.30-5.90) m/uL Hgb 16.2 (13.0-17.5) gm/dL Hct 51.5 (39.0-53.0) % MCV 84.3 (80.0-100.0) fL MCH 26.5 (25.0-35.0) pg MCHC 31.4 (31.0-37.0) g/dL RDW 17.7 H (11.5-15.5) % Plt Count 263 (150-450) k/uL MPV 8.8 Neutrophils % 65 % Lymphocytes % 23 % Monocytes % 8 % Eosinophils % 2 % Basophils % 0 % Neutrophils # 5.7 (1.3-7.7) k/uL Lymphocytes # 2.0 (1.0-4.8) k/uL Monocytes # 0.7 (0-1.0) k/uL Eosinophils # 0.2 (0-0.7) k/uL Basophils # 0.0 (0-0.2) k/uL Hypochromasia Slight Anisocytosis Slight Sodium 135 L (137-145) mmol/L Potassium 4.1 (3.5-5.1) mmol/L Chloride 102 (98-107) mmol/L Carbon Dioxide 24 (22-30) mmol/L Anion Gap 9 mmol/L BUN 7 L (9-20) mg/dL Creatinine 1.18 (0.66-1.25) mg/dL Est GFR (CKD-EPI)AfAm 87 (>60 ml/min/1.73 sqM) Est GFR (CKD-EPI)NonAf 75 (>60 ml/min/1.73 sqM) Glucose 88 (74-99) mg/dL Calcium 9.3 (8.4-10.2) mg/dL Total Bilirubin 0.9 (0.2-1.3) mg/dL AST 32 (17-59) U/L ALT 38 (4-49) U/L Alkaline Phosphatase 71 (38-126) U/L Total Protein 7.9 (6.3-8.2) g/dL Albumin 4.5 (3.5-5.0) g/dL Lipase 323 H (23-300) U/L Urine Color Colorless Urine Appearance Clear (Clear) Urine pH 6.5 (5.0-8.0) Ur Specific [place] 1.002 (1.001-1.035) Urine Protein Negative (Negative) Urine Glucose (UA) Negative (Negative) Urine Ketones Negative (Negative) Urine Blood Negative (Negative) Urine Nitrite Negative (Negative) Urine Bilirubin Negative (Negative) Urine Urobilinogen <2.0 (<2.0) mg/dL Ur Leukocyte Esterase Negative (Negative) Disposition Clinical Impression: Abdominal pain of unknown etiology Disposition: HOME SELF-CARE Condition: Good Additional Instructions: Patient instructed to report back to the ER if he experiences uncontrolled pain, is unable to tolerate food/water or has fever/chills. Suggested that the pa tiemirtha visit primary care provider for further workup of his abdominal pain. Is patient prescribed a controlled substance at d/c from ED?: No Referrals: Ryan Loving Jr, DO [Primary Care Provider] - 1-2 days Time of Disposition: 14:25
[2021-10-29 12:57] LABS: Anisocytosis Slight; Basophils % (A) 0 %; Eosinophils # (A) 0.2 k/uL (0-0.7); Eosinophils % (A) 2 %; HCT 51.5 % (39.0-53.0); HGB 16.2 gm/dL (13.0-17.5); Hypochromasia Slight; Lymphocytes % (A) 23 %; MCH 26.5 pg (25.0-35.0); MCHC 31.4 g/dL (31.0-37.0); MCV 84.3 fL (80.0-100.0); Mean Platelet Volume 8.8; Monocytes # (A) 0.7 k/uL (0-1.0); Monocytes % (A) 8 %; Neutrophils # (A) 5.7 k/uL (1.3-7.7); Neutrophils % (A) 65 %; Platelet Count 263 k/uL (150-450); RBC 6.11 m/uL (4.30-5.90); RDW 17.7 % (11.5-15.5); WBC 8.8 k/uL (3.8-10.6)
[2021-10-29 13:10] LABS: Albumin 4.5 g/dL (3.5-5.0); Calcium 9.3 mg/dL (8.4-10.2); Potassium 4.1 mmol/L (3.5-5.1); Total Bilirubin 0.9 mg/dL (0.2-1.3); Total Protein 7.9 g/dL (6.3-8.2)
[2021-10-29] MEDS ORDERED: SODIUM CHLORIDE 0.9% 500 ML 500 ML IV STA (13:49)
--- NOTE | 2021-10-29 13:59 | CT ---
EXAMINATION TYPE: CT abdomen pelvis w con DATE OF EXAM: 10/29/2021 COMPARISON: Prior CT May 17, 2021 and older studies HISTORY: Abdominal pain. History of kidney stones. CT DLP: 1987.5 mGycm, Automated Exposure Control for Dose Reduction was Utilized. CONTRAST: CT scan of the abdomen and pelvis is performed without oral but with IV Contrast, patient injected wi th 100 mL of Isovue 300. FINDINGS: LUNG BASES: No significant abnormality is appreciated. LIVER/GB: Cholecystectomy clips are redemonstrated. Liver remains heterogeneously hypodense suggestin g diffuse fatty infiltration PANCREAS: No significant abnormality is seen. SPLEEN: There is 1.3 cm splenule anterior to the spleen redemonstrated axial image 17. ADRENALS: No significant abnormality is seen. KIDNEYS: Symmetric cortical medullary uptake and excretion is seen without hydronephrosis identified bilaterally. Simple appearing parapelvic cyst centrally in the lower pole left kidney is redemonstrat ed. Subcentimeter thin-walled cyst upper pole level left kidney axial image 26 is stable No renal yazan culi bilaterally clearly seen. No intraluminal calculus in the bladder. The proximal left ureter is r edemonstrated in close proximity to a slightly tortuous small vessel seen best reference coronal imag e 63 of uncertain etiology or significance. No significant change from most recent prior study. BOWEL: Evaluation of bowel suboptimal secondary to lack of enteric contrast. Surgical changes at base of cecum from appendectomy are noted. No suspicious small or large bowel dilatation. PROSTATE/SEMINAL VESICLES: Right-sided Central calcifications in a normal size prostate gland redemon strated. LYMPH NODES: No new greater than 1cm abdominal or pelvic lymph nodes are appreciated. OSSEOUS STRUCTURES: Transitional type vertebra lumbosacral junction is again seen. OTHER: Symmetric small fat-containing bilateral inguinal hernias redemonstrated. IMPRESSION: No renal stones or hydronephrosis on today's study. No significant change from most recen t CT.
[2021-10-29] MEDS ORDERED: METOCLOPRAMIDE 5 MG/ML 2 ML VIAL IVP STA (14:18)
[2021-10-29 14:31] VITALS: BP 134/88; PULSE 72
== END 2021-10-29 14:31 | disposition home or self-care (01) ==
LOC: EC 10:38
DX: R10.31 Right lower quadrant pain (principal); I10 Essential (primary) hypertension; E03.9 Hypothyroidism, unspecified; Z79.890 Hormone replacement therapy; Z79.51 Long term (current) use of inhaled steroids; Z79.899 Other long term (current) drug therapy
CPT/HCPCS: 36415; 80053; 83690; 85025; 81003; 74177; 99284; 96374; 96375 ×2; 96361 ×2; J2765; J2405; J1170; Q9967

== ENCOUNTER 2021-10-31 06:03 | Day surgery (SDC) | payer OTHER ==
[2021-10-25 16:20] VITALS: BMI 32.8
[~2021-10-31 06:03] MED LIST changes: +LACTATED RINGERS 1,000 ML IV SCH; -SODIUM CHLORIDE 0.9% 500 ML 500 ML in EMPTY BAG 1 BAG IV PRN
[2021-10-31] MEDS ORDERED: LIDOCAINE 1% (10MG/ML) FOR IV START INTRADERMA ONE (06:25)
[2021-10-31 06:36] VITALS: TEMP 98
[2021-10-31] MEDS ORDERED: ONDANSETRON 4 MG/2 ML VIAL ONE (06:46)
[2021-10-31] MEDS ORDERED: ONDANSETRON 4 MG/2 ML VIAL IVP ONE (06:49)
[2021-10-31] MEDS ORDERED: methylPREDNISolone ACETATE 40 MG/ML 1 ML VIAL ONE (06:50)
[2021-10-31] MEDS ORDERED: fentaNYL (PF) 50 MCG/ML 2 ML AMP ONE (06:50)
[2021-10-31] MEDS ORDERED: MIDAZOLAM 2 MG/2 ML VIAL ONE (06:50)
[2021-10-31] MEDS ORDERED: ROPIVACAINE 5MG/ML 20ML VIAL ONE (06:50)
--- NOTE | 2021-10-31 07:07 | P.PCN ---
Date of Procedure: 10/31/21 Procedure(s) Performed: Procedure= Right sacroiliac joints steroid injection under fluoroscopy guidance (fluoroscopy image stored on file in the radiology Department ) Preoperative diagnosis= 1-Right sacroiliitis 2-right sacroiliac joint dysfunction 3-lumbar spondylosis with lumbar facet arthropathy Postoperative diagnosis=Same as preop Diagnosis . Complication = none Condition= stable Anesthesia= moderate sedation with intravenous Versed 2 mg , and fentanyl 100 micrograms . Indication for the procedure= patient complaining of low back pain , examination was positive for severe tenderness over the sacroiliac joints bilaterally and patient diagnosed with sacroiliitis, for this reason he was good candidate for sacroiliac joint steroid injection. Description of the procedure= procedure risk and benefits discussed with the patient, including but not limited, risk of infection and bleeding, and ALLERGIC reaction to the medication and not complete pain relief and patient agreed with the preceding patient taken to the operating room, placed in prone position or standard monitors applied to the patient then after induction of anesthesia back prepped with chlorhexidine 3 times , Then under strict sterile technique, first I did the right sacroiliac joint the which was identified under fluoroscopy guidance been local infiltration of the skin and subcu interstitial with lidocaine 1% then 22-gauge Quincke Needle advanced slowly under fluoroscopy and placed in the right sacroiliac joint needle placement confirmed with AP and oblique and lateral view and after appropriate needle placement confirmed and after negative aspiration, or heme , then Ropivacaine 0.5% 5 mL, and 40 mg of Depo-Medrol mixed together and injected in the right sacroiliac joint after negative aspiration patient tolerated the procedure well without any complication.
[2021-10-31] MEDS ORDERED: IV FLUID CONTINUATION 700 ML IV ONE (07:13)
[2021-10-31 07:15] VITALS: RESP 16
[2021-10-31] MEDS ORDERED: diphenhydrAMINE 50 MG/ML 1 ML VIAL ONE (07:34)
[2021-10-31] MEDS ORDERED: diphenhydrAMINE 50 MG/ML 1 ML VIAL IVP ONE ×2 (07:36→07:49)
[2021-10-31 08:29] VITALS: BP 132/82; PULSE 79
--- NOTE | 2021-10-31 09:33 | FL ---
Fluoroscopy HISTORY: Pain 4 seconds fluoroscopy time supplied to the referring clinician. 1 intraoperative C-arm images docume nt the procedure. See dictated report from anesthesia.
== END 2021-10-31 08:29 | disposition home or self-care (01) ==
LOC: ORPAIN 06:03
PROVIDERS: ATTEND Specialist
DX: M54.50 Low back pain, unspecified (principal); M46.1 Sacroiliitis, not elsewhere classified; M47.816 Spondylosis without myelopathy or radiculopathy, lumbar region
CPT/HCPCS: J2250; J1200; J1030; J2405; J3010; J2795; G0260; 27096

== ENCOUNTER 2021-11-06 14:33 | Emergency (ER) | payer OTHER ==
[2021-11-06 14:41] VITALS: TEMP 98.8
--- NOTE | 2021-11-06 15:30 | ED ---
General Adult HPI - General Chief complaint: Abdominal Pain Stated complaint: abd pain Time Seen by Provider: 11/06/21 15:05 Source: patient Mode of arrival: ambulatory Limitations: no limitations - History of Present Illness Initial comments: Dictation was produced using wufoo dictation software. please excuse any grammatical, word or spelling errors. 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 Patient states that he is here today for abdominal pain. I saw patient 8 days ago for the same complaint. CT scan at that time was performed at that time showing no acute processes. He had normal labs.. Patient was discharged told to follow-up with field artillery crewmember. He made an appointment however states that his pain is unbearable protium to come back to the emergency department for pain control. Patient said he couldn't wait until next week. He states that he has suprapubic pain. No back pain. No nausea or vomiting. Pain is nonradiating. Patient told that he had kidney stones. Believe he is having a kidney stone attack. Patient denies any constitutional symptoms or fevers. Patient reports that Dilaudid, Toradol and Zofran will help her symptoms. He has had this pain for several weeks. States that it's been persistent may be slightly worsened over the last 48 hours. Denies any diarrhea. The ROS documented in this emergency department record has been reviewed and confirmed by me. Those systems with pertinent positive or negative responses have been documented in the HPI. All other systems are other negative and/or noncontributory. PHYSICAL EXAM: General Impression: Alert and oriented x3, not in acute distress HEENT: Normocephalic atraumatic, extra-ocular movements intact, pupils equal and reactive to light bilaterally, mucous membranes moist. Cardiovascular: Heart regular rate and rhythm Chest: Able to complete full sentences, no retractions, no tachypnea Abdomen: abdomen soft, mild palpatory tenderness to the suprapubic area, non- distended, no organomegaly Musculoskeletal: Pulses present and equal in all extremities, no peripheral edema Motor: no focal deficits noted Neurological: CN II-XII grossly intact, no focal motor or sensory deficits noted Skin: Intact with no visualized rashes Psych: Normal affect and mood ED course: 41-year-old male presents emergency department for lower abdominal pain. vital signs upon arrival are within acceptable limits. Patient is afebrile. Nonhypertensive. Laboratory evaluation obtained. No leukocytosis. CBC and metabolic panels within acceptable limits. Abdominal labs are within acceptable limits. Urinalysis is negative. Abdominal x-ray chest x-ray shows no acute processes. Patient given IV analgesia and antiemetics. Patient be discharged advised to follow-up with a pain specialist and GI doctor as initially planned. Patient reevaluated at bedside at 4:15 PM from been stable medical condition. Patient is agreeable to disposition. - Related Data Home Medications Medication Instructions Recorded Confirmed Testosterone Cypionate 160 mg IM Q72H 01/26/19 11/06/21 [Depo-Testosterone] lisinopriL [Zestril] 10 mg PO BID 01/26/19 11/06/21 amLODIPine [Norvasc] 5 mg PO DAILY 04/29/19 11/06/21 Sildenafil Citrate [Sildenafil] 20 mg PO DAILY PRN 10/20/20 11/06/21 Levothyroxine Sodium [Synthroid] 50 mcg PO DAILY 05/17/21 11/06/21 Linaclotide [Linzess] 72 mcg PO DAILY PRN 05/17/21 11/06/21 Omeprazole [PriLOSEC] 20 mg PO DAILY PRN 05/17/21 11/06/21 Albuterol Sulfate [Proair Hfa] 2 puff INHALATION RT-Q4H PRN 08/07/21 11/06/21 Pregabalin [Lyrica] 300 mg PO HS 08/07/21 11/06/21 Baclofen 20 mg PO TID PRN 11/06/21 11/06/21 Butalbit/Acetamin/Caff/Codeine 1 - 2 cap PO Q4HR PRN 11/06/21 11/06/21 [Fioricet-Cod 70-442-80-30 Cap] Pregabalin [Lyrica] 150 mg PO DAILY 11/06/21 11/06/21 Previous Rx's Medication Instructions Recorded oxyCODONE HCL/ACETAMINOPHEN 1 tab PO Q8HR PRN 30 Days #60 tab 09/16/21 [Percocet 5-325 mg] Allergies Allergy/AdvReac Type Severity Reaction Status Date / Time benzalkonium chloride Allergy Severe Swelling Verified 11/06/21 15:59 duloxetine HCl AdvReac Severe severe Verified 11/06/21 15:59 [From Cymbalta] headache gabapentin [From Neurontin] AdvReac HEADACHE Verified 11/06/21 15:59 Review of Systems ROS Statement: Those systems with pertinent positive or pertinent negative responses have been documented in the HPI. ROS Other: All systems not noted in ROS Statement are negative. Past Medical History Past Medical History: Hypertension, Thyroid Disorder Additional Past Medical History / Comment(s): HX KIDNEY STONE, CHRONIC BACK PAIN, LOW THYROID, UMBILICAL HERNIA.back pain, had covid 08/25/21 History of Any Multi-Drug Resistant Organisms: None Reported Past Surgical History: No Surgical Hx Reported Additional Past Surgical History / Comment(s): PAIN PROCEDURES, multiple kidney stone removals, secondary polycythemia Past Anesthesia/Blood Transfusion Reactions: No Reported Reaction Additional Past Anesthesia/Blood Transfusion Reaction / Comment(s): States needs more sedation to put me asleep. Past Psychological History: No Psychological Hx Reported Smoking Status: Never smoker Past Alcohol Use History: None Reported Past Drug Use History: None Reported - Past Family History Mother History Unknown: Yes Family Medical History: Dementia Father Additional Family Medical History / Comment(s): SMOKER. General Exam Limitations: no limitations Course Vital Signs 11/06/21 14:39 Temperature 98.8 F Pulse Rate 81 Respiratory 16 Rate Blood Pressure 131/86 O2 Sat by Pulse 98 Oximetry Medical Decision Making - Lab Data Result diagrams: 11/06/21 15:29 11/06/21 15:29 Lab Results 11/06/21 11/06/21 11/06/21 Range/Units 15:29 15:29 15:29 WBC 9.5 (3.8-10.6) k/uL RBC 6.06 H (4.30-5.90) m/uL Hgb 16.3 (13.0-17.5) gm/dL Hct 51.6 (39.0-53.0) % MCV 85.2 (80.0-100.0) fL MCH 26.9 (25.0-35.0) pg MCHC 31.6 (31.0-37.0) g/dL RDW 17.9 H (11.5-15.5) % Plt Count 223 (150-450) k/uL MPV 9.3 Neutrophils % 75 % Lymphocytes % 15 % Monocytes % 7 % Eosinophils % 0 % Basophils % 0 % Neutrophils # 7.1 (1.3-7.7) k/uL Lymphocytes # 1.5 (1.0-4.8) k/uL Monocytes # 0.7 (0-1.0) k/uL Eosinophils # 0.0 (0-0.7) k/uL Basophils # 0.0 (0-0.2) k/uL Hypochromasia Slight Anisocytosis Slight Sodium 138 (137-145) mmol/L Potassium 4.1 (3.5-5.1) mmol/L Chloride 101 (98-107) mmol/L Carbon Dioxide 27 (22-30) mmol/L Anion Gap 10 mmol/L BUN 11 (9-20) mg/dL Creatinine 1.21 (0.66-1.25) mg/dL Est GFR (CKD-EPI)AfAm 85 (>60 ml/min/1.73 sqM) Est GFR (CKD-EPI)NonAf 73 (>60 ml/min/1.73 sqM) Glucose 99 (74-99) mg/dL Calcium 9.1 (8.4-10.2) mg/dL Total Bilirubin 0.5 (0.2-1.3) mg/dL AST 26 (17-59) U/L ALT 38 (4-49) U/L Alkaline Phosphatase 68 (38-126) U/L Total Protein 7.7 (6.3-8.2) g/dL Albumin 4.5 (3.5-5.0) g/dL Lipase 345 H (23-300) U/L Urine Color Yellow Urine Appearance Clear (Clear) Urine pH 6.5 (5.0-8.0) Ur Specific [place] 1.016 (1.001-1.035) Urine Protein Negative (Negative) Urine Glucose (UA) Negative (Negative) Urine Ketones Negative (Negative) Urine Blood Negative (Negative) Urine Nitrite Negative (Negative) Urine Bilirubin Negative (Negative) Urine Urobilinogen <2.0 (<2.0) mg/dL Ur Leukocyte Esterase Negative (Negative) Disposition Clinical Impression: Abdominal pain Disposition: HOME SELF-CARE Condition: Fair Instructions (If sedation given, give patient instructions): Abdominal Pain (ED) Is patient prescribed a controlled substance at d/c from ED?: No Referrals: Ryan Loving Jr, DO [Primary Care Provider] - 1-2 days
[2021-11-06 15:46] LABS: Albumin 4.5 g/dL (3.5-5.0); Calcium 9.1 mg/dL (8.4-10.2); Potassium 4.1 mmol/L (3.5-5.1); Total Bilirubin 0.5 mg/dL (0.2-1.3); Total Protein 7.7 g/dL (6.3-8.2)
[2021-11-06 15:59] LABS: Anisocytosis Slight; Basophils % (A) 0 %; Eosinophils % (A) 0 %; HCT 51.6 % (39.0-53.0); HGB 16.3 gm/dL (13.0-17.5); Hypochromasia Slight; Lymphocytes # (A) 1.5 k/uL (1.0-4.8); Lymphocytes % (A) 15 %; MCH 26.9 pg (25.0-35.0); MCHC 31.6 g/dL (31.0-37.0); MCV 85.2 fL (80.0-100.0); Mean Platelet Volume 9.3; Monocytes # (A) 0.7 k/uL (0-1.0); Monocytes % (A) 7 %; Neutrophils # (A) 7.1 k/uL (1.3-7.7); Neutrophils % (A) 75 %; Platelet Count 223 k/uL (150-450); RBC 6.06 m/uL (4.30-5.90); RDW 17.9 % (11.5-15.5); WBC 9.5 k/uL (3.8-10.6)
[2021-11-06 16:03] LABS: Appearance,Urine Clear (Clear); Bilirubin,Urine Negative (Negative); Blood,Urine Negative (Negative); Color,Urine Yellow; Glucose,Urine (UA) Negative (Negative); Ketones,Urine Negative (Negative); Leukocyte Esterase,Urine Negative (Negative); Nitrite,Urine Negative (Negative); PH, Urine 6.5 (5.0-8.0); Protein,Urine Negative (Negative); Specific Gravity,Urine 1.016 (1.001-1.035); Urobilinogen,Urine <2.0 mg/dL (<2.0)
--- NOTE | 2021-11-06 16:03 | XR ---
EXAMINATION TYPE: XR abdomen acute w cxr DATE OF EXAM: 11/06/2021 CLINICAL HISTORY: Suprapubic pain. TECHNIQUE: Single frontal view of chest is obtained. Supine and upright views of the abdomen are acq uired. COMPARISON: CT abdomen and pelvis 8 days ago. FINDINGS: The lungs are grossly clear without pleural effusion or pneumothorax. Cardiac silhouette size appears mildly enlarged. Osseous structures are intact. Gas is noted in nondistended stomach and scattered small bowel loops. Gas and fecal material is seen in nondistended colon. Surgical sutures from appendectomy in the right lower quadrant redemonstrated . Cholecystectomy clips again seen. No distinct renal calculi clearly identified. Transitional type v ertebra lumbosacral junction redemonstrated. No free air. IMPRESSION: 1. Mild cardiomegaly without acute pulmonary process. 2. Overall nonobstructive bowel gas pattern redemonstrated.
[2021-11-06] MEDS ORDERED: HYDROmorphone 0.5 MG/0.5 ML SYRINGE IVP STA (16:09)
[2021-11-06] MEDS ORDERED: KETOROLAC 15 MG/ML 1 ML VIAL IVP STA (16:09)
[2021-11-06] MEDS ORDERED: ONDANSETRON 4 MG/2 ML VIAL IVP STA (16:09)
[2021-11-06 16:58] VITALS: BP 123/73; PULSE 85; RESP 18
== END 2021-11-06 16:48 | disposition home or self-care (01) ==
LOC: EC 14:33
DX: R10.30 Lower abdominal pain, unspecified (principal); I10 Essential (primary) hypertension; E07.9 Disorder of thyroid, unspecified; Z88.1 Allergy status to other antibiotic agents; Z87.442 Personal history of urinary calculi
CPT/HCPCS: 99284; 96374; 96375 ×2; 36415; 80053; 83690; 85025; 81003; 74022; J2405; J1885; J1170

== ENCOUNTER → 2021-11-11 | Outpatient (CLI) | payer OTHER ==
[2021-11-11 07:52] VITALS: BP 128/81; PULSE 84; RESP 18; TEMP 98.4
--- NOTE | 2021-11-11 07:57 | P.PN ---
Subjective Progress Note Date: 11/11/21 Principal diagnosis: A 41 yr old male with a history of severe and chronic low back pain secondary to lumbar degenerative disc diseases and lumbar spondylosis with facet arthropathy presents today for . Pain level is 7/10, dull/ achy in the lower lumbar region and sharp/ shooting towards the lower extremities bilaterally. Pain is provoked by walking, twisting, bending and lifting. It is also provoked with driving over a bumpy road. Pain is alleviated with medication, injections, RFA heat, rest and stretching. He feels the baclofen makes him feel irritable and Zanaflex give him anxiety. He also stated that Robaxin has been ineffective in treating his pain and spasms. He would like to try a different anti- spasmodic. Interventional pain procedures completed include Patient is currently on oxycodone Lyrica and baclofen Patient denies any side effects of the medication(s), denies excessive drowsiness or sleepiness, denies suicidal ideation and reports that the current pain medication is helping to control the pain and improve activities of daily living. Patient denies any motor or sensory deficits. Patient denies any fever or night sweats, denies any change in the bowel movements or urination. Physical Examination: -Constitutional: Cooperative. Not in acute distress . -HEENT: Neck is supple. No lymphadenopathy. No thyromegaly. Normal thyroid size. Eyes: No ptosis , no icterus, no photophobia. ENT: No auditory deficits. Normal oropharynx. No Thrush. - Respiratory: Chest clear to auscultations bilaterally. No wheezing. No rhonchi. - Cardiovascular: Regular rate and rhythm. S1 / S2 , no S3 , no S4. - Gastrointestinal: Abdomen soft no tenderness. Bowel sounds positive in all four quadrants. No organomegaly. - Genitourinary: Deferred. - Neurologic: Cranial nerve II to XII intact. No focal neurological deficits. - Psychatric: Alert & oriented x 3. Matching mood & appropriate affect. Judgment and insight intact. - Lymphatic: No Lymphadenopathy. - Musculoskeletal: Cervical spine: Muscle bulk/ tone/ strength in the bilateral upper extremities normal. Facet loading test cervical area positive. Lumbar spine: Motor bulk/ tone/ strength lower extremities , thigh and legs : 5/5 Deep tendon reflexes : Normal Knee Jerk. Normal Ankle Jerk . Lumbar Facet Loading Test positive over L4-L5 Straight Leg Raise: positive at 30 degree right side/ <45 on left side Yair test: positive right side / left side Range of motion: Flexion of the lumbar spine <60 degrees Range of motion: Extension of the lumbar spine <20 degrees Severe tenderness over the Sacroiliac joint: right side / left side Assessment and plan: Chronic low back pain secondary to lumbar degenerative disc disease , lumbar spondylosis with facet arthropathy without myelopathy Medication refills. Reviewed UDS from Sep, 2021 which was consistent Recommendation of bilateral RFA of L4-L5, L5-S1 Risks and benefits of the procedure discussed and patient verbalized understanding Denies aspirin or anticoagulants use Chronic and current use of high-risk medication (Opioids). The patient was counseled about risk of opioid use, psychological risk associated with opioids and was orally counseled to not overuse , divert or sell medications. Pt is to store medication in a safe location. The patient is counseled against driving while using narcotic medications and also not to use alcohol or any illicit recreational drugs. Patient verbalized understanding that the lack of compliance will result in failure to renew narcotic prescription(s) as well as possible discharge from the clinic Diagnoses, prognosis and treatment options including but not limited to physical therapy, surgical interventions, interventional therapies and medication management including narcotics and adjuvant medication were discussed. All patient questions answered MAPS reviewed and it was appropriate. Prescription refill for Oxycodone, Lyrica and Skelaxin. Discontinue Baclofen I have spent 31 minutes on patient care today. Dr Bowles was available by phone for the evaluation of this patient. The time was used to review the medical records including relevant urine studies and Prescription history (MAPs), review of the available imaging, evaluation and examination of the patient, coordination of care with the medical staff and if applicable referring physicians, as well as creation of the medical record PQRS Measure Charge Sheet Mode of Arrival: Ambulatory PQRS Narrative: Smoking Status Never smoker Narcotic Agreement Date Signed 09/16/21 Blood Pressure 128/81 Pain Intensity [Lower Back] 7 Scale Used Numeric (1 - 10) Hx Alcohol Use (MH) No Home Medications: Ambulatory Orders Testosterone Cypionate [Depo-Testosterone] 160 mg IM Q72H 01/26/19 lisinopriL [Zestril] 10 mg PO BID 01/26/19 amLODIPine [Norvasc] 5 mg PO DAILY 04/29/19 Sildenafil Citrate [Sildenafil] 20 mg PO DAILY PRN 10/20/20 Levothyroxine Sodium [Synthroid] 50 mcg PO DAILY 05/17/21 Linaclotide [Linzess] 72 mcg PO DAILY PRN 05/17/21 Omeprazole [PriLOSEC] 20 mg PO DAILY PRN 05/17/21 Albuterol Sulfate [Proair Hfa] 2 puff INHALATION RT-Q4H PRN 08/07/21 Pregabalin [Lyrica] 300 mg PO HS 08/07/21 oxyCODONE HCL/ACETAMINOPHEN [Percocet 5-325 mg] 1 tab PO Q8HR PRN 30 Days #60 tab 09/16/21 Baclofen 20 mg PO TID PRN 11/06/21 Butalbit/Acetamin/Caff/Codeine [Fioricet-Cod [id number] Cap] 1 - 2 cap PO Q4HR PRN 11/06/21 Pregabalin [Lyrica] 150 mg PO DAILY 11/06/21
== END ==
LOC: PNWHC3 07:18
PROVIDERS: ATTEND Physician Assistant Medical
DX: G89.29 Other chronic pain (principal); M51.36 Other intervertebral disc degeneration, lumbar region; M47.816 Spondylosis without myelopathy or radiculopathy, lumbar region; Z79.891 Long term (current) use of opiate analgesic
CPT/HCPCS: 99211

== ENCOUNTER → 2021-12-11 | Outpatient (CLI) | payer OTHER ==
--- NOTE | 2021-12-12 02:54 | MR ---
EXAMINATION TYPE: MR elbow LT wo con DATE OF EXAM: 12/11/2021 COMPARISON: None HISTORY: Left elbow and distal humerus pain, swelling and limited movement for 3 days due to injury Multiplanar multiecho imaging of the left elbow without contrast. The triceps tendon is intact. Proximal ulna is intact. The brachialis tendon and the biceps tendon ap pear intact. There is no edema. There is minimal subcutaneous edema on the medial aspect of the dista l ulna. No fracture seen. There is no evidence of elbow joint effusion. Collateral ligaments appear i ntact. No evidence of any significant elbow joint effusion. Radial head is intact. Joint spaces are f airly normal. Impression : There is mild subcutaneous edema posteriorly. No evidence of ligament or tendon tear. No fracture see n.
== END | disposition home or self-care (01) ==
LOC: RADMRIMAIN 20:39
PROVIDERS: ATTEND Orthopaedic Surgery Hand Surgery
DX: M25.522 Pain in left elbow (principal); S59.902A Unspecified injury of left elbow, initial encounter

== ENCOUNTER 2021-12-20 06:27 | Day surgery (SDC) | payer OTHER ==
[2021-12-19 10:29] VITALS: BMI 33.2
[~2021-12-20 06:27] MED LIST changes: +LIDOCAINE 1% (10MG/ML) FOR IV START INTRADERMA PRN
[2021-12-20 06:49] VITALS: TEMP 97.8
[2021-12-20] MEDS ORDERED: ONDANSETRON 4 MG/2 ML VIAL ONE (06:53)
[2021-12-20] MEDS ORDERED: ONDANSETRON 4 MG/2 ML VIAL IVP ONE (06:55)
[2021-12-20] MEDS ORDERED: MIDAZOLAM 2 MG/2 ML VIAL ONE (07:02)
[2021-12-20] MEDS ORDERED: fentaNYL (PF) 50 MCG/ML 2 ML AMP ONE (07:02)
[2021-12-20] MEDS ORDERED: methylPREDNISolone ACETATE 40 MG/ML 1 ML VIAL ONE (07:02)
[2021-12-20] MEDS ORDERED: diphenhydrAMINE 50 MG/ML 1 ML VIAL ONE ×2 (07:02→07:41)
[2021-12-20] MEDS ORDERED: ROPIVACAINE 5MG/ML 20ML VIAL ONE (07:02)
--- NOTE | 2021-12-20 07:34 | P.PCN ---
Date of Procedure: 12/20/21 Procedure(s) Performed: PREOPERATIVE DIAGNOSIS: 1-Lumbar Spondylosis with Facet Arthropathy without myelopathy. 2- Lumber degenerative disc disease. POSTOPERATIVE DIAGNOSIS: 1- Lumbar Spondylosis with Facet Arthropathy without myelopathy. 2- Lumber degenerative disc disease. PROCEDURES : Bilateral Radiofrequency thermocoagulation, L3 , L4 , and L5 medial branch, with fluoroscopic guidance (fluoroscopy images available in the radiology department) ( to denervate the facet joint at bilateral L4-5 ,and L5-S1 levels ). ANESTHESIA: Monitored anesthesia care as per anesthesia department . EBL: Minimal PROCEDURE INDICATION: The patient with low back pain secondary to lumbar facet arthropathy who had more than 50% relief of her pain with previous diagnostic lumbar medial branch block with bupivacaine. PROCEDURE DESCRIPTION / TECHNIQUE: The patient was seen and identified in the preoperative area. Risks, benefits, complications, including but not limited to risk of infection ,bleeding , allergic reactions to the medications and no complete pain releife , and alternatives were discussed with the patient, the patient agreed to proceed with the procedure and signed the consent. IV was started. Vital signs remained stable throughout the procedure. Patient was taken to the OR and time out was completed. The patient was placed in the prone position on the procedure table. The lumber area was prepped and draped in the usual sterile fashion. . Vital signs were closely monitored during the procedure .IV sedation was used during the procedure to decrease patients anxiety. Using AP and then oblique fluoroscopy, the ``eye of the John dog cor responding to the connection between the superior and transverse articular processes of right L3, L4, and L5 were identified, marked, and localized with 1% lidocaine. Subsequently, a [id number] radiofrequency cannula with a 10- mm active tip was advanced guided by fluoroscopy to each of the``eyes of the John dog at right L3, L4, and L5. Each site then underwent sensory testing at 50 Hz and 0 to 1 volt and motor testing at 2.5 Hz and 0 to 3 volt with local stimulation, but no radicular symptoms down the legs. Thereafter each sites underwent radiofrequency thermocoagulation at 80 degrees celsius for 90 seconds after injecting 0.5 ml of PF Ropivacaine 1ml, then after the thermocoagulation done , 1 ml of the block solution containing Depo-Medrol 20 mg and 3 ml of Ropivacaine 0.5% was injected at the right L3 , L4 , and L5 , levels after negative aspiration of CSF and blood and with no paresthesias. Cannulas were retracted while injecting lidocaine 1% until the needle is out. The same procedure was repeated at the level of Left L3, L4, and L5 levels. At the end of the procedure, the skin was cleansed and bandages were applied. COMPLICATIONS: No acute complications. DISPOSITION / PLANS: The patient was placed in a supine position and transferred to the recovery area in a stable condition for observation and was discharged from the recovery room after meeting discharge criteria. Home discharge instructions given to the patient by the staff. The patient was reexamined prior to discharge. The patient will schedule a follow up in the clinic in 2-4 weeks.
[2021-12-20] MEDS ORDERED: IV FLUID CONTINUATION 750 ML IV ONE (07:37)
[2021-12-20 07:53] VITALS: BP 138/81; PULSE 79; RESP 16
--- NOTE | 2021-12-20 08:31 | FL ---
Fluoroscopy HISTORY: Pain 17 seconds fluoroscopy time supplied to the referring clinician. 6 intraoperative C-arm images docum ent the procedure. See dictated report from anesthesia.
== END 2021-12-20 08:26 | disposition home or self-care (01) ==
LOC: ORPAIN 06:27
PROVIDERS: ATTEND Specialist
DX: G89.29 Other chronic pain (principal); M47.816 Spondylosis without myelopathy or radiculopathy, lumbar region; M51.36 Other intervertebral disc degeneration, lumbar region; I10 Essential (primary) hypertension; E07.9 Disorder of thyroid, unspecified; Z79.890 Hormone replacement therapy; Z79.891 Long term (current) use of opiate analgesic; Z79.899 Other long term (current) drug therapy; Z88.8 Allergy status to other drugs, medicaments and biological substances
CPT/HCPCS: 64635; 64636; J2250; J1200; J1030; J2405; J3010; J2795

== ENCOUNTER → 2022-01-06 | Outpatient (CLI) | payer OTHER ==
--- NOTE | 2022-01-06 07:55 | P.PN ---
Subjective Progress Note Date: 01/06/22 Principal diagnosis: A 41 yr old male with a history of severe and chronic low back pain secondary to lumbar degenerative disc diseases and lumbar spondylosis with facet arthropathy presents today for evaluation status post RFA of the lumbar spine and medication refills. Patient states he experienced 50% pain relief status post procedure. Pain level is 6 out of 10 in intensity and localized to the right aspect of the lower lumbar spine. Admits to occasional radiation down the right lower extremity. Pain is provoked by bending, twisting and lifting. Pain is alleviated with . Interventional pain procedures completed include RFA BL L3-L5 Patient is currently on Oxycodone 5/325mg #60, Lyrica 150mg #90, Skelaxin prn Patient denies any side effects of the medication(s), denies excessive drowsiness or sleepiness, denies suicidal ideation and reports that the current pain medication is helping to control the pain and improve activities of daily living. Patient denies any motor or sensory deficits. Patient denies any fever or night sweats, denies any change in the bowel movements or urination. Physical Examination: -Constitutional: Cooperative. Not in acute distress . -HEENT: Neck is supple. No lymphadenopathy. No thyromegaly. Normal thyroid size. Eyes: No ptosis , no icterus, no photophobia. ENT: No auditory deficits. Normal oropharynx. No Thrush. - Respiratory: Chest clear to auscultations bilaterally. No wheezing. No rhonchi. - Cardiovascular: Regular rate and rhythm. S1 / S2 , no S3 , no S4. - Gastrointestinal: Abdomen soft no tenderness. Bowel sounds positive in all four quadrants. No organomegaly. - Genitourinary: Deferred. - Neurologic: Cranial nerve II to XII intact. No focal neurological deficits. - Psychatric: Alert & oriented x 3. Matching mood & appropriate affect. Judgment and insight intact. - Lymphatic: No Lymphadenopathy. - Musculoskeletal: Cervical spine: Muscle bulk/ tone/ strength in the bilateral upper extremities normal. Facet loading test cervical area positive. Lumbar spine: Motor bulk/ tone/ strength lower extremities , thigh and legs : 5/5 Deep tendon reflexes : Normal Knee Jerk. Normal Ankle Jerk . Vertebral body tenderness to palpation over L5 Lumbar Facet Loading Test positive Straight Leg Raise: positive at 30 degrees right side/ left side Gaenslen's Test positive Sacral spine : Severe tenderness over the Sacroiliac joint: right side / left side Range of motion: Flexion of the lumbar spine <60 degrees Range of motion: Extension of the lumbar spine <20 degrees Gaenslen's Test positive Yair test: positive right side / left side Assessment and plan: Chronic low back pain secondary to lumbar degenerative disc disease , lumbar spondylosis with facet arthropathy without myelopathy Chronic and current use of high-risk medication (Opioids). The patient was counseled about risk of opioid use, psychological risk associated with opioids and was orally counseled to not overuse , divert or sell medications. Pt is to store medication in a safe location. The patient is counseled against driving while using narcotic medications and also not to use alcohol or any illicit recreational drugs. Patient verbalized understanding that the lack of compliance will result in failure to renew narcotic prescription(s) as well as possible discharge from the clinic Diagnoses, prognosis and treatment options including but not limited to physical therapy, surgical interventions, interventional therapies and medication management including narcotics and adjuvant medication were discussed. All patient questions answered MAPS reviewed and it was appropriate. UDS from 10/01 reviewed and consistent Prescription refill for Oxycodone 5/325 #60 with 1 refill, Lyrica 150mg QAM #30 w 1 refill, Lyrica 300mg QPM #30 w 1 refill. I have spent 31 minutes on patient care today. Dr Bowles was available by phone for the evaluation of this patient. The time was used to review the medical records including relevant urine studies and Prescription history (MAPs), review of the available imaging, evaluation and examination of the patient, coordination of care with the medical staff and if applicable referring physicians, as well as creation of the medical record PQRS Measure Charge Sheet PQRS Narrative: Smoking Status Never smoker Narcotic Agreement Date Signed 09/16/21 Hx Alcohol Use (MH) No Home Medications: Ambulatory Orders Testosterone Cypionate [Depo-Testosterone] 160 mg IM Q72H 01/26/19 lisinopriL [Zestril] 10 mg PO BID 01/26/19 amLODIPine [Norvasc] 5 mg PO DAILY 04/29/19 Sildenafil Citrate [Sildenafil] 20 mg PO DAILY PRN 10/20/20 Levothyroxine Sodium [Synthroid] 50 mcg PO DAILY 05/17/21 Linaclotide [Linzess] 72 mcg PO DAILY PRN 05/17/21 Omeprazole [PriLOSEC] 20 mg PO DAILY PRN 05/17/21 Albuterol Sulfate [Proair Hfa] 2 puff INHALATION RT-Q4H PRN 08/07/21 diphenhydrAMINE [Benadryl] 25 mg PO BID PRN 12/20/21 Pregabalin [Lyrica] 150 mg PO QAM 30 Days #30 cap 01/06/22 Pregabalin [Lyrica] 300 mg PO HS 30 Days #30 cap 01/06/22 oxyCODONE HCL/ACETAMINOPHEN [Percocet 5-325 mg] 1 tab PO Q8HR PRN 30 Days #60 tab 01/06/22 oxyCODONE-APAP 5-325MG [Percocet 5-325 mg] 1 tab PO Q12HR PRN 30 Days #60 tab 01/06/22
[2022-01-06 08:02] VITALS: BP 119/83; PULSE 71; RESP 18; TEMP 98.2
== END ==
LOC: PNWHC3 07:26
PROVIDERS: ATTEND Specialist
DX: G89.29 Other chronic pain (principal); M51.36 Other intervertebral disc degeneration, lumbar region; M47.816 Spondylosis without myelopathy or radiculopathy, lumbar region; Z79.891 Long term (current) use of opiate analgesic; Z88.6 Allergy status to analgesic agent; Z88.8 Allergy status to other drugs, medicaments and biological substances
CPT/HCPCS: 99211

== ENCOUNTER → 2022-01-06 | Outpatient (CLI) | payer OTHER ==
--- NOTE | 2022-01-07 09:12 | MR ---
EXAMINATION TYPE: MR shoulder LT wo con DATE OF EXAM: 01/06/2022 COMPARISON: Plain film 12/13/2021 HISTORY: M25.512 L shoulder pain, Hard to raise up, hurt wrestling with son TECHNIQUE: Multiplanar, multisequence imaging of the left shoulder is performed without contrast. FINDINGS: Rotator Cuff: There is a tear of the subscapularis tendon, associated fluid signal present along the musculotendinous junction, there is some retraction Acromioclavicular Joint: Some arthropathy changes present, distal acromion is downturned Glenohumeral Joint: Intact Labrum: There is some abnormal increased intrinsic signal within the labrum at the superior margin an teriorly, axial image #11 and 12, coronal image #16 and 15, there may be a sublabral foramen present Biceps Tendon: Long head of biceps tendon shows a perched appearance on axial image #16, 17 likely du e to the tear of the subscapularis tendon Bone marrow signal: Maintained Other: Edema signal present along the musculotendinous junction of subscapularis. IMPRESSION: Subscapularis tendon tear. Findings suspicious for labral tear.
== END | disposition home or self-care (01) ==
LOC: RADMRIMAIN 07:19
PROVIDERS: ATTEND Orthopaedic Surgery Hand Surgery
DX: M75.112 Incomplete rotator cuff tear or rupture of left shoulder, not specified as traumatic (principal)

== ENCOUNTER → 2022-01-20 | Outpatient (CLI) | payer OTHER ==
[~2022-01-20] MED LIST changes: +KETOROLAC 30 MG/ML 1 ML VIAL IM NR; -LACTATED RINGERS 1,000 ML IV SCH; +LIDOCAINE 0.5% (PF) 5 MG/ML (50 ML SDV) IM NR; -LIDOCAINE 1% (10MG/ML) FOR IV START INTRADERMA PRN; +SODIUM CHLORIDE 0.9% 500 ML 500 ML in EMPTY BAG 1 BAG IV PRN
[2022-01-20 08:02] VITALS: RESP 16; TEMP 99.1
[2022-01-20 08:04] LABS: HCT 52.4 % (39.0-53.0); HGB 16.4 gm/dL (13.0-17.5); MCH 27.2 pg (25.0-35.0); MCHC 31.4 g/dL (31.0-37.0); MCV 86.7 fL (80.0-100.0); Platelet Count 235 k/uL (150-450); RBC 6.05 m/uL (4.30-5.90); WBC 5.5 k/uL (3.8-10.6)
[2022-01-20 08:56] VITALS: BP 142/89; PULSE 88
== END ==
LOC: PROCWHC3 07:44
PROVIDERS: ATTEND Internal Medicine Hematology & Oncology
DX: D45 Polycythemia vera (principal); Z88.6 Allergy status to analgesic agent; Z88.8 Allergy status to other drugs, medicaments and biological substances
CPT/HCPCS: 85027; 99195; 96372; 36415; J2001 ×2; J1885

== ENCOUNTER → 2022-01-31 | Outpatient (CLI) | payer OTHER ==
[~2022-01-31] MED LIST changes: +LIDOCAINE (PF) 10 MG/ML 2 ML VIAL IM NR; -LIDOCAINE 0.5% (PF) 5 MG/ML (50 ML SDV) IM NR; -SODIUM CHLORIDE 0.9% 500 ML 500 ML in EMPTY BAG 1 BAG IV PRN
[2022-01-31 12:26] VITALS: BP 119/80; PULSE 63; RESP 16; TEMP 98.3
== END ==
LOC: PROCWHC3 11:33
PROVIDERS: ATTEND Specialist
DX: M54.50 Low back pain, unspecified (principal); Z88.8 Allergy status to other drugs, medicaments and biological substances
CPT/HCPCS: 96372; J2001; J1885

== ENCOUNTER → 2022-02-12 | Outpatient (CLI) | payer OTHER ==
[2022-02-12 08:31] VITALS: BP 126/85; PULSE 85; RESP 18
--- NOTE | 2022-02-12 08:34 | P.PN ---
Subjective Progress Note Date: 02/12/22 Principal diagnosis: A 42 yr old male with a history of severe and chronic low back pain secondary to lumbar degenerative disc diseases and lumbar spondylosis with facet arthropathy presents today for medication refills. Pt states he is scheduled to have L laparoscopic shoulder surgery on 02/19/22. Pain is localized in the BL hips also. General pain level is 8 /10 in intensity, sharp, shooting in the BL hips, provoked by lifting, twisting and bending. Pain is alleviated with medications, Toradol injections, ice, heat, PT in 2019, chiropractic treatments 3-4 times per month, home stretching regimen, massage therapy integrated with chiropractic treatments and rest. Pt is also interested in injections at this time to relieve pain so he is not so dependent on medications for pain relief. Patient is currently on Percocet 5/325 #60 & Lyrica 150mg #30 Patient denies any side effects of the medication(s), denies excessive drowsiness or sleepiness, denies suicidal ideation and reports that the current pain medication is helping to control the pain and improve activities of daily living. Patient denies any motor or sensory deficits. Patient denies any fever or night sweats, denies any change in the bowel movements or urination. Physical Examination: -Constitutional: Cooperative. Not in acute distress . -HEENT: Neck is supple. No lymphadenopathy. No thyromegaly. Normal thyroid size. Eyes: No ptosis , no icterus, no photophobia. ENT: No auditory deficits. Normal oropharynx. No Thrush. - Respiratory: Chest clear to auscultations bilaterally. No wheezing. No rhonchi. - Cardiovascular: Regular rate and rhythm. S1 / S2 , no S3 , no S4. - Gastrointestinal: Abdomen soft no tenderness. Bowel sounds positive in all four quadrants. No organomegaly. - Genitourinary: Deferred. - Neurologic: Cranial nerve II to XII intact. No focal neurological deficits. - Psychatric: Alert & oriented x 3. Matching mood & appropriate affect. Judgment and insight intact. - Lymphatic: No Lymphadenopathy. - Musculoskeletal: Cervical spine: Muscle bulk/ tone/ strength in the bilateral upper extremities normal. Facet loading test cervical area positive. Lumbar spine: Motor bulk/ tone/ strength lower extremities , thigh and legs : 5/5 Deep tendon reflexes : Normal Knee Jerk. Normal Ankle Jerk . Vertebral body tenderness to palpation over Lumbar Facet Loading Test positive Straight Leg Raise: positive at 30 degrees right side/ left side Gaenslen's Test positive Sacral spine : Severe tenderness over the Sacroiliac joint: right side / left side Range of motion: Flexion of the lumbar spine <60 degrees Range of motion: Extension of the lumbar spine <20 degrees Gaenslen's Test positive Yair test: positive right side / left side Assessment and plan: Chronic low back pain secondary to lumbar degenerative disc disease , lumbar spondylosis with facet arthropathy without myelopathy, BL Sacroiliitis Recommendation of BL SI joint injections. Risks, benefits of procedure discussed and pt verbalized understanding. May need a series of injections, which have a compounding effect, for optimal pain relief. Denies anticoagulant use or medical history of diabetes. Chronic and current use of high-risk medication (Opioids). The patient was counseled about risk of opioid use, psychological risk associated with opioids and was orally counseled to not overuse , divert or sell medications. Pt is to store medication in a safe location. The patient is counseled against driving while using narcotic medications and also not to use alcohol or any illicit recreational drugs. Patient verbalized understanding that the lack of compliance will result in failure to renew narcotic prescription(s) as well as possible discharge from the clinic Diagnoses, prognosis and treatment options including but not limited to physical therapy, surgical interventions, interventional therapies and medication management including narcotics and adjuvant medication were discussed. All patient questions answered MAPS reviewed and it was appropriate. Prescription refill for Percocet 5/325 #60 1 refill, Lyrica 150mg #30 1 refill. I have spent 31 minutes on patient care today. Dr Bowles was available by phone for the evaluation of this patient. The time was used to review the medical records including relevant urine studies and Prescription history (MAPs), review of the available imaging, evaluation and examination of the patient, coordination of care with the medical staff and if applicable referring physicians, as well as creation of the medical record PQRS Measure Charge Sheet Mode of Arrival: Ambulatory PQRS Narrative: Smoking Status Never smoker Narcotic Agreement Date Signed 09/16/21 Blood Pressure 126/85 Pain Intensity [Generalized] 8 Scale Used Numeric (1 - 10) Hx Alcohol Use (MH) No Home Medications: Ambulatory Orders Testosterone Cypionate [Depo-Testosterone] 160 mg IM Q72H 01/26/19 lisinopriL [Zestril] 10 mg PO BID 01/26/19 amLODIPine [Norvasc] 5 mg PO DAILY 04/29/19 Sildenafil Citrate [Sildenafil] 20 mg PO DAILY PRN 10/20/20 Levothyroxine Sodium [Synthroid] 50 mcg PO DAILY 05/17/21 Linaclotide [Linzess] 72 mcg PO DAILY PRN 05/17/21 Omeprazole [PriLOSEC] 20 mg PO DAILY PRN 05/17/21 Albuterol Sulfate [Proair Hfa] 2 puff INHALATION RT-Q4H PRN 08/07/21 diphenhydrAMINE [Benadryl] 25 mg PO BID PRN 12/20/21 Pregabalin [Lyrica] 150 mg PO QAM 30 Days #30 cap 01/06/22 oxyCODONE HCL/ACETAMINOPHEN [Percocet 5-325 mg] 1 tab PO Q8HR PRN 30 Days #60 tab 01/06/22 oxyCODONE-APAP 5-325MG [Percocet 5-325 mg] 1 tab PO Q12HR PRN 30 Days #60 tab Metaxalone [Skelaxin] 400 mg PO TID 30 Days #90 tablet 01/15/22 Pregabalin [Lyrica] 150 mg PO TID 30 Days #90 capsule 01/15/22
== END ==
LOC: PNWHC3 07:54
PROVIDERS: ATTEND Specialist
DX: M51.36 Other intervertebral disc degeneration, lumbar region (principal); M47.816 Spondylosis without myelopathy or radiculopathy, lumbar region; M46.1 Sacroiliitis, not elsewhere classified; G89.29 Other chronic pain; Z79.891 Long term (current) use of opiate analgesic; Z88.8 Allergy status to other drugs, medicaments and biological substances
CPT/HCPCS: 99211

== ENCOUNTER → 2022-02-12 | Outpatient (CLI) | payer OTHER ==
[2022-02-12 14:40] LABS: Basophils # (A) 0.08 X 10*3/uL (0.00-0.10); Basophils % (A) 0.8 %; Eosinophils # (A) 0.39 X 10*3/uL (0.04-0.35); Eosinophils % (A) 3.9 %; HCT 49.3 % (39.6-50.0); HGB 15.2 g/dL (13.0-17.0); Immature Grans, Automated 0.8 %; Lymphocytes # (A) 1.35 X 10*3/uL (0.90-5.00); Lymphocytes % (A) 13.4 %; MCH 26.7 pg (27.0-32.0); MCHC 30.8 g/dL (32.0-37.0); MCV 86.6 fL (80.0-97.0); Mean Platelet Volume 12.2 fL (9.5-12.2); Monocytes # (A) 0.79 X 10*3/uL (0.20-1.00); Monocytes % (A) 7.9 %; NRBC Per 100 WBC 0 /100 WBCS (0.0-0.0); Neutrophils # (A) 7.37 X 10*3/uL (1.80-7.70); Neutrophils % (A) 73.2 %; Platelet Count 276 X 10*3/uL (140-440); RBC 5.69 X 10*6/uL (4.40-5.60); WBC 10.06 X 10*3/uL (4.50-10.00)
[2022-02-12 15:10] LABS: Anion Gap 8.7 mmol/L (10.00-18.00); Carbon Dioxide 29.3 mmol/L (20.0-27.5); Potassium 4.6 mmol/L (3.5-5.5)
== END | disposition home or self-care (01) ==
LOC: LABPAT 08:45
PROVIDERS: ATTEND Orthopaedic Surgery
DX: M75.42 Impingement syndrome of left shoulder (principal)
CPT/HCPCS: 36415; 80051; 85025

== ENCOUNTER 2022-02-19 07:29 | Day surgery (SDC) | payer OTHER ==
[2022-02-17 16:03] VITALS: BMI 32.2
--- NOTE | 2022-02-18 15:18 | HP ---
HISTORY AND PHYSICAL DATE OF SURGERY: 02/19/2022 Froilan Crowder is a 42-year-old patient seen with progressive left shoulder pain. We discussed options for treatment. He elected to proceed with arthroscopy. Consent regarding the procedure was obtained. PAST MEDICAL HISTORY: Hypertension, back pain. PAST SURGICAL HISTORY: Noncontributory. DAILY MEDICATIONS: Amlodipine, lisinopril, Lyrica, baclofen. ALLERGIES: CYMBALTA, NEURONTIN. SOCIAL HISTORY: He denies tobacco use. PHYSICAL EVALUATION OF THE LEFT SHOULDER: Flexion is 130 degrees. Abduction is 110 degrees. External rotation is 30 degrees with pain and weakness. Tenderness along the anterolateral acromion and rotator cuff insertion site. Impingement is positive at 90. Cross-body adduction sign is positive. Drop-arm sign is positive. Distal neurovascular exam is intact. Radiographs of the left shoulder revealed a type 2 acromion, evidence for acromioclavicular joint osteoarthritis and cystic changes of the tuberosity. MRI left shoulder: Subscapularis tendon tear with possible labral tear and acromioclavicular joint osteoarthritis. IMPRESSION: 1. Left shoulder impingement with rotator cuff tear. 2. Left shoulder acromioclavicular joint osteoarthritis. 3. Left shoulder possible labral tear. 4. Hypertension. 5. Chronic back pain. PLAN: Left shoulder arthroscopy with subacromial decompression, arthroscopic rotator cuff repair, Allison procedure and debridement. MMODL / IJN: [id number] /
[~2022-02-19 07:29] MED LIST changes: +DEXAMETHASONE SOD PHOSPHATE 4 MG/ML 1 ML VIAL IV ONE; -KETOROLAC 30 MG/ML 1 ML VIAL IM NR; +LACTATED RINGERS 1,000 ML IV SCH; -LIDOCAINE (PF) 10 MG/ML 2 ML VIAL IM NR; +LIDOCAINE 1% (10MG/ML) FOR IV START INTRADERMA PRN; +ONDANSETRON 4 MG/2 ML VIAL IVP ONE; +SCOPOLAMINE 1 MG/72 HR PATCH TRANSDERM ONE
[2022-02-19] MEDS ORDERED: fentaNYL (PF) 50 MCG/ML 2 ML AMP IVP ONE (08:20)
[2022-02-19] MEDS ORDERED: MIDAZOLAM 2 MG/2 ML VIAL IVP ONE (08:50)
[2022-02-19] MEDS ORDERED: GLYCOPYRROLATE 0.2 MG/ML 2 ML VIAL ONE (09:08)
[2022-02-19] MEDS ORDERED: ROPIVACAINE 5 MG/ML 30 ML VIAL ONE (09:08)
[2022-02-19] MEDS ORDERED: fentaNYL (PF) 50 MCG/ML 2 ML AMP ONE (09:08)
[2022-02-19] MEDS ORDERED: LABETALOL 5 MG/ML VIAL MDV ONE (09:08)
[2022-02-19] MEDS ORDERED: PROPOFOL 10 MG/ML 20 ML VIAL IV ONE (09:08)
[2022-02-19] MEDS ORDERED: KETAMINE 10 MG/ML 20 ML VIAL ONE (09:08)
[2022-02-19] MEDS ORDERED: SUCCINYLCHOLINE CHLORIDE VIAL 200 MG/10 ML VIAL IV ONE (09:08)
[2022-02-19] MEDS ORDERED: LIDOCAINE 4% LTA KIT (4 ML) TOPICAL ONE (09:08)
[2022-02-19] MEDS ORDERED: LIDOCAINE 2% INJ 20 MG/ML (2 ML VIAL) ONE (09:08)
[2022-02-19] MEDS ORDERED: ROCURONIUM 10 MG/ML (5 ML VIAL) IV ONE (09:08)
[2022-02-19] MEDS ORDERED: NEOSTIGMINE 1 MG/ML 10 ML VIAL ONE (09:08)
[2022-02-19] MEDS ORDERED: MIDAZOLAM 2 MG/2 ML VIAL ONE (09:08)
[2022-02-19] MEDS ORDERED: LACTATED RINGERS 1,000 ML IV ONE (10:27)
--- NOTE | 2022-02-19 10:43 | P.OP ---
Date of Procedure: 02/19/22 Preoperative Diagnosis: Left shoulder impingement Postoperative Diagnosis: 1. Left shoulder rotator cuff tear 2. Left shoulder impingement Procedure(s) Performed: 1. Left shoulder arthroscopic rotator cuff repair 2. Left shoulder arthroscopic subacromial decompression Implants: 15.5 Arthrex swivel lock anchor Anesthesia: GETA, regional (Interscalene block) Surgeon: Thomas Abbasi Health Director #1: Frank Hazel Estimated Blood Loss (ml): 10 Pathology: none sent Condition: stable Disposition: PACU Indications for Procedure: 42-year-old patient seen with progressive left knee pain. After treatment options were discussed, he elected to proceed with arthroscopy. Operative Findings: see description of procedure Description of Procedure: Patient underwent an interscalene block by department of anesthesia. The patient was then taken to the operative suite. The patient underwent a general anesthetic by the department of anesthesia. The patient was placed into a lateral position and secured. There was appropriate padding of the bony prominence. Left shoulder was then prepped and draped in normal sterile orthopedic fashion. We placed the extremity in 10 pounds of longitudinal traction. A posterior incision was now made for a posterior working portal site. The trocar and cannula were inserted into the glenohumeral joint. Arthroscopy was initiated. Spinal needle was now inserted anteriorly, to ascertain the anterior working portal site. An incision was now made in that area, a trocar was inserted followed by a probe. There was some superficial fraying of the superior labrum. There was no swimming chondromalacia present. The biceps tendon appeared intact. I introduced a motorized shaver and debrided out the superficial fraying of the superior labrum. The shaver was removed. The residual labrum appeared stable. Instruments were now removed from the glenohumeral joint. Utilizing the posterior working portal site, the trocar and cannula were inserted into the subacromial space. Arthroscopy initiated. I made an incision 2 fingerbreadths lateral to the acromion. I introduced my trocar followed by my ArthroCare ablator. I now began ablating thick subacromial bursal tissue, which exposed the undersurface of the anterior acromion. There was diminished subacromial space. There was a very prominent anterior acromion. A motorized bur was introduced and a subacromial decompression was performed. I also excised some osteophytes off the inferior aspect of the distal clavicle. The AC joint was visualized and noted to be moderately arthritic, I did not think enough to warrant Allison procedure. I turned my attention to the rotator cuff tendon. There was thick and partial tearing along the posterior aspect of the distal supraspinatus. Upon probing the area noted full-thickness perforation. I debrided the margins getting down to stable tendon tissue. I abraded the footprint with a motorized bur. With the assistance of Panfilo ALMODOVAR I passed 3 everted mattress sutures through good bites of rotator cuff tendon. I now punched a hole in the footprint area for insertion of a anchor. All 6 limbs of suture were now passed through the eyelet of a 5.5 Arthrex swivel lock anchor. I placed the eyelet into the pre-punch hole, I held that in position while Panfilo ALMODOVAR tension all the sutures and deployed the anchor with good fixation noted. All residual suture limbs were now clipped. We had good compression of the tendon along the entire footprint. Instruments now removed from the portal sites. All portal sites were approximated with nylon suture. Sterile dressings were applied followed by a shoulder sling. Frank ALMODOVAR assisted in this case. The patient was awakened, transferred to a bed, and taken to recovery in stable condition.
[2022-02-19 10:53] VITALS: TEMP 97.5
[2022-02-19] MEDS: HYDROmorphone 0.5 MG/0.5 ML SYRINGE IVP PRN ×2 (11:06→11:15)
[2022-02-19] MEDS ORDERED: oxyCODONE-APAP 5-325MG 1 EACH TAB PO ONE (12:00)
[2022-02-19] MEDS ORDERED: oxyCODONE-APAP 5-325MG 1 EACH TAB ONE (12:00)
[2022-02-19 13:08] VITALS: RESP 16
--- NOTE | 2022-02-19 13:11 | P.ANPRN ---
Procedure Note - Anesthesia - Nerve Block Performed Left Interscalene Time Out Performed: Yes (08:48) Date of Procedure: 02/19/22 Procedure Start Time: 08:48 Procedure Stop Time: 08:59 Location of Patient: PreOp Indication: Acute Post-Operative Pain, Requested by Surgeon (Dr Abbasi) Sedation Type: Sedate with meaningful contact maintained Preparation: Sterile Prep Position: Supine Catheter: None Needle Types: Pajunk Needle Gauge: Other (see comment) (22g) Ultrasound used to visualize needle placement: Yes Ultrasound used to observe medication spread: Yes Injectate: 0.5% Ropivacaine (see comment for volume) (22cc) Blood Aspirated: No Pain Paresthesia on Injection Noted: No Resistance on Injection: Normal Image Stored and Saved: Yes Events: Uneventful and Well Tolerated
[2022-02-19] MEDS ORDERED: ONDANSETRON 4 MG/2 ML VIAL ONE (13:15)
[2022-02-19] MEDS ORDERED: ONDANSETRON 4 MG/2 ML VIAL IVP ONE (13:18)
[2022-02-19 14:53] VITALS: BP 136/89; PULSE 64
== END 2022-02-19 15:15 | disposition home or self-care (01) ==
LOC: OR 07:29
PROVIDERS: ATTEND Orthopaedic Surgery
DX: M75.102 Unspecified rotator cuff tear or rupture of left shoulder, not specified as traumatic (principal); M25.712 Osteophyte, left shoulder; M25.812 Other specified joint disorders, left shoulder; G89.29 Other chronic pain; M54.9 Dorsalgia, unspecified; Z79.899 Other long term (current) drug therapy; I10 Essential (primary) hypertension; Z88.8 Allergy status to other drugs, medicaments and biological substances; M19.012 Primary osteoarthritis, left shoulder
CPT/HCPCS: 64415; 76942; 29826; 29827; C1713; J2250; J0330; J1100; J2710; J0690; J2405; J3010; J2795; J2704; J1170; J2001

== ENCOUNTER 2022-03-13 07:13 | Day surgery (SDC) | payer OTHER ==
[2022-03-13] MEDS ORDERED: LACTATED RINGERS 1,000 ML IV ONE (07:17)
[2022-03-13] MEDS ORDERED: LACTATED RINGERS 1,000 ML IV SCH (07:23)
[2022-03-13] MEDS ORDERED: LIDOCAINE 1% (10MG/ML) FOR IV START INTRADERMA PRN (07:23)
[2022-03-13 07:28] VITALS: RESP 16; TEMP 97.6
[2022-03-13] MEDS ORDERED: ROPIVACAINE 5MG/ML 20ML VIAL ONE (07:35)
[2022-03-13] MEDS ORDERED: methylPREDNISolone ACETATE 40 MG/ML 1 ML VIAL ONE (07:35)
[2022-03-13] MEDS ORDERED: fentaNYL (PF) 50 MCG/ML 2 ML AMP ONE (07:35)
[2022-03-13] MEDS ORDERED: MIDAZOLAM 2 MG/2 ML VIAL ONE (07:35)
--- NOTE | 2022-03-13 07:51 | P.PCN ---
Date of Procedure: 03/13/22 Procedure(s) Performed: Procedure= bilateral sacroiliac joints steroid injection under fluoroscopy guidance (fluoroscopy image stored on file in the radiology Department ) Preoperative diagnosis= 1-sacroiliitis 2-lumbar degenerative disc disease 3- lumbar facet arthropathy Postoperative diagnosis=Same as preop Diagnosis . Complication = none Condition= stable Anesthesia= moderate sedation with intravenous Versed 2 mg , and fentanyl 100 micrograms . Indication for the procedure= patient complaining of low back pain , examination was positive for severe tenderness over the sacroiliac joints bilaterally and patient diagnosed with sacroiliitis, for this reason, he was good candidate for sacroiliac joint steroid injection. Description of the procedure= procedure risk and benefits discussed with the patient, including but not limited, risk of infection and bleeding, and ALLERGIC reaction to the medication and not complete pain relief and patient agreed with the preceding patient taken to the operating room, placed in prone position or standard monitors applied to the patient then after induction of anesthesia back prepped with chlorhexidine 3 times , Then under strict sterile technique, first I did the right sacroiliac joint the which was identified under fluoroscopy guidance been local infiltration of the skin and subcu interstitial with lidocaine 1% then 22-gauge Quincke Needle advanced slowly under fluoroscopy and placed in the right sacroiliac joint needle placement confirmed with AP and oblique and lateral view and after appropriate needle placement confirmed and after negative aspiration, or heme , then Ropivacaine 0.5% 4 mL, and 40 mg of Depo-Medrol mixed together and injected in the right sacroiliac joint after negative aspiration patient tolerated the procedure well without any complication. Then the left sacroiliac joint steroid injection done under strict sterile technique local infiltration of the skin and subcu interstitial at the location of the left sacroiliac joint then a 22-gauge Quincke Needle advanced slowly under fluoroscopy time placed in the left sacroiliac joint, needle placement confirmed with AP and oblique and lateral view then after appropriate needle placement confirmed and after negative aspiration 0.5% Ropivacaine 4 mL and 40 m g of Depo-Medrol injected in the left sacroiliac joint after negative aspiration patient tolerated the procedure well that any complications and she will follow up in clinic 3 weeks
[2022-03-13] MEDS ORDERED: IV FLUID CONTINUATION 1,000 ML IV ONE (07:55)
[2022-03-13] MEDS ORDERED: diphenhydrAMINE 50 MG/ML 1 ML VIAL ONE (08:00)
[2022-03-13] MEDS ORDERED: diphenhydrAMINE 50 MG/ML 1 ML VIAL IVP ONE (08:02)
[2022-03-13 08:16] VITALS: BP 123/75; PULSE 65
--- NOTE | 2022-03-13 09:19 | FL ---
EXAMINATION TYPE: FL guided pain mgmt statistic DATE OF EXAM: 03/13/2022 HISTORY: Fluoroscopy time 8 seconds of fluoroscopy provided. IMPRESSION: 1. Fluoroscopy time.
== END 2022-03-13 08:25 | disposition home or self-care (01) ==
LOC: ORPAIN 07:13
PROVIDERS: ATTEND Specialist
DX: M46.1 Sacroiliitis, not elsewhere classified (principal); M51.36 Other intervertebral disc degeneration, lumbar region; M47.816 Spondylosis without myelopathy or radiculopathy, lumbar region
CPT/HCPCS: J2250; J1200; J1030; J1040; J3010; J2795; G0260; 99152

== ENCOUNTER 2022-04-09 15:46 | Emergency (ER) | payer OTHER ==
[2022-04-09 15:59] VITALS: PULSE 79
[2022-04-09] MEDS ORDERED: SODIUM CHLORIDE 0.9% 1,000 ML IV STA (16:45)
[2022-04-09] MEDS ORDERED: PROCHLORPERAZINE INJ 10 MG/2 ML VIAL IVP STA (16:45)
[2022-04-09] MEDS ORDERED: diphenhydrAMINE 50 MG/ML 1 ML VIAL IVP STA (16:45)
[2022-04-09] MEDS ORDERED: KETOROLAC 15 MG/ML 1 ML VIAL IVP STA (16:45)
--- NOTE | 2022-04-09 17:12 | ED ---
General Adult HPI - General Chief complaint: Headache Stated complaint: COVID+ last week/Migraine Time Seen by Provider: 04/09/22 16:26 Source: patient, RN notes reviewed Mode of arrival: ambulatory Limitations: no limitations - History of Present Illness Initial comments: Patient is a 42-year-old male presents to the emergency room with complaints of severe migraine ongoing for approximately 3 days. He has attempted [id number]-yvr-[id number] medications at home without success or his chronic back and neck pain medications. He reports that he tested positive for cold approximately a week and a half ago and was placed on antivirals that approximately 1 week ago he tested negative for covert again. He is established with Dr. Bowles outpatient for pain management and they are attempting to get him into the office for injections which she has required in the past for his migraines but has not been able to get in. He reports that the pain is become severe and he presented for medication to treat his migraine. He states that he has responded well to migraine cocktails in the emergency room/hospital previously. He reports that his his current headache is not different than his previous migraines in the past with associated occasional blurred vision and nausea without vomiting. He states that his pain is primarily located to the occipital region bilaterally. He denies any neurological deficits with the exception of his blurred vision as stated above. He has a past medical history in addition to his migraines, chronic neck and back pain of hypertension, hypothyroidism and kidney stones. He denies any other complaints or concerns at this time. - Related Data Home Medications Medication Instructions Recorded Confirmed Testosterone Cypionate 160 mg IM Q72H 01/26/19 04/09/22 [Depo-Testosterone] lisinopriL [Zestril] 10 mg PO BID 01/26/19 04/09/22 amLODIPine [Norvasc] 5 mg PO DAILY 04/29/19 04/09/22 Sildenafil Citrate [Sildenafil] 20 mg PO DAILY PRN 10/20/20 04/09/22 Levothyroxine Sodium [Synthroid] 50 mcg PO DAILY 05/17/21 04/09/22 Linaclotide [Linzess] 72 mcg PO DAILY PRN 05/17/21 04/09/22 Omeprazole [PriLOSEC] 20 mg PO DAILY PRN 05/17/21 04/09/22 Albuterol Sulfate [Proair Hfa] 2 puff INHALATION RT-Q4H PRN 08/07/21 04/09/22 diphenhydrAMINE [Benadryl] 25 mg PO BID PRN 12/20/21 04/09/22 Ibuprofen [Motrin] 800 mg PO BID PRN 02/17/22 04/09/22 Baclofen 10 mg PO TID PRN 02/19/22 04/09/22 Previous Rx's Medication Instructions Recorded Pregabalin [Lyrica] 150 mg PO TID 30 Days #90 cap 04/09/22 oxyCODONE HCL/ACETAMINOPHEN 2 tab PO Q12HR PRN 30 Days #60 tab 04/09/22 [Percocet 5-325 mg] oxyCODONE-APAP 5-325MG [Percocet 1 tab PO Q12HR PRN 30 Days #60 tab 04/09/22 5-325 mg] Allergies Allergy/AdvReac Type Severity Reaction Status Date / Time benzalkonium chloride Allergy Severe Swelling Verified 04/09/22 15:59 duloxetine HCl AdvReac Severe severe Verified 04/09/22 15:59 [From Cymbalta] headache gabapentin [From Neurontin] AdvReac HEADACHE Verified 04/09/22 15:59 Review of Systems ROS Statement: Those systems with pertinent positive or pertinent negative responses have been documented in the HPI. ROS Other: All systems not noted in ROS Statement are negative. Past Medical History Past Medical History: Hypertension, Thyroid Disorder Additional Past Medical History / Comment(s): HX KIDNEY STONE, CHRONIC BACK PAIN, LOW THYROID, UMBILICAL HERNIA.back pain, had covid 08/25/21 History of Any Multi-Drug Resistant Organisms: None Reported Past Surgical History: No Surgical Hx Reported Additional Past Surgical History / Comment(s): PAIN PROCEDURES, multiple kidney stone removals, secondary polycythemia Past Anesthesia/Blood Transfusion Reactions: No Reported Reaction Additional Past Anesthesia/Blood Transfusion Reaction / Comment(s): States needs more sedation to put me asleep. Past Psychological History: No Psychological Hx Reported Smoking Status: Never smoker Past Alcohol Use History: None Reported Past Drug Use History: None Reported - Past Family History Mother History Unknown: Yes Family Medical History: Dementia Father Additional Family Medical History / Comment(s): SMOKER. General Exam Limitations: no limitations General appearance: alert, in no apparent distress Head exam: Present: atraumatic, normocephalic, normal inspection Eye exam: Present: normal appearance, PERRL, EOMI. Absent: scleral icterus, conjunctival injection, periorbital swelling ENT exam: Present: normal exam, mucous membranes moist Neck exam: Present: normal inspection. Absent: tenderness, meningismus, lymphadenopathy Respiratory exam: Absent: respiratory distress, accessory muscle use Extremities exam: Present: normal inspection, full ROM, normal capillary refill. Absent: tenderness, pedal edema, joint swelling, calf tenderness Back exam: Present: normal inspection Neurological exam: Present: alert, oriented X3, CN II-XII intact Psychiatric exam: Present: normal affect, normal mood Skin exam: Present: warm, dry, intact, other (Richard complexion) Course Vital Signs 04/09/22 15:57 Temperature 98.9 F Pulse Rate 79 Respiratory 18 Rate Blood Pressure 129/85 O2 Sat by Pulse 98 Oximetry Medical Decision Making - Medical Decision Making History of known migraines and establish with pain management. No change in characteristics or neurological deficits. No indication for diagnostic imaging or laboratory studies at this time. Will give migraine cocktail of promethazine, Benadryl along with Ketorolac and IV fluid bolus. Will monitor response. Symptoms improved with IV medication. Patient agreeable for discharge home on already prescribed oral medications with follow-up with pain management. Case discussed with Dr. Rice Disposition Clinical Impression: Migraine headache Disposition: HOME SELF-CARE Condition: Fair Instructions (If sedation given, give patient instructions): Acute Headache (ED), Moderate Sedation (ED) Additional Instructions: Please follow-up with pain management. Take your analgesics as prescribed for your migraines per primary care provider and pain management providers recommendations. Please return to the Emergency Department if symptoms worsen or any other concerns. Is patient prescribed a controlled substance at d/c from ED?: No Referrals: Ryan Loving Jr, DO [Primary Care Provider] - 1-2 days Meo Bowles MD [STAFF PHYSICIAN] - As Soon As Possible Time of Disposition: 18:42
[2022-04-09 18:49] VITALS: BP 129/87; RESP 16; TEMP 97.9
== END 2022-04-09 18:49 | disposition home or self-care (01) ==
LOC: EC 15:46
DX: G43.909 Migraine, unspecified, not intractable, without status migrainosus (principal); I10 Essential (primary) hypertension; Z88.6 Allergy status to analgesic agent; Z88.8 Allergy status to other drugs, medicaments and biological substances; Z88.9 Allergy status to unspecified drugs, medicaments and biological substances
CPT/HCPCS: 99284; 96374; 96375; 96361; J1200; J0780; J1885

== ENCOUNTER → 2022-04-09 | Outpatient (CLI) | payer OTHER ==
[2022-04-09 08:45] VITALS: BP 114/77; PULSE 71; RESP 18; TEMP 98.3
--- NOTE | 2022-04-09 08:50 | P.PAINPG ---
PQRS Measure Charge Sheet Comment: A 42 yr old male with a history of severe and chronic low back pain secondary to lumbar degenerative disc diseases and lumbar spondylosis with facet arthropathy presents today for medication refills & evaluation s/p BL SI joint injection. Experienced 70% pain relief s/p procedure. Pain level is currently at 7/10 in intensity, constant, sharp/achy in character in the base of the neck with radiation of pain towards the BL scalp. Pain is provoked by certain neck positions. Pain is alleviated with massages weekly, chiropractic treatments 1-3 times a month, medications ( percocet & lyrica ), laying supine in a dark room and rest. Interventional pain procedures completed include BL G.O.N. injections (last Sep 2021), BL SI joint injections. Patient is currently on Percocet 5/325#60, Lyrica 150 mg #90 Patient denies any side effects of the medication(s), denies excessive drowsiness or sleepiness, denies suicidal ideation and reports that the current pain medication is helping to control the pain and improve activities of daily living. Patient denies any motor or sensory deficits. Patient denies any fever or night sweats, denies any change in the bowel movements or urination. Physical Examination: -Constitutional: Cooperative. Not in acute distress . - Neurologic: Cranial nerve II to XII intact. No focal neurological deficits. - Psychatric: Alert & oriented x 3. Matching mood & appropriate affect. Judgment and insight intact. - Musculoskeletal: Cervical spine: +BL G.O.N. & L.O.N. R>L Muscle bulk/ tone/ strength in the bilateral upper extremities normal Vertebral body tenderness to palpation over Spurling test positive Distraction test positive Facet loading test positive Thoracic spine Muscle bulk / tone/ strength in the bilateral paraspinal muscles normal Vertebral body tender to palpation over Facet loading test positive Lumbar spine: Motor bulk/ tone/ strength lower extremities , thigh and legs : 5/5 Deep tendon reflexes : Normal Knee Jerk. Normal Ankle Jerk . Vertebral body tenderness to palpation over Lumbar Facet Loading Test positive Straight Leg Raise: positive at 30 degrees right side/ left side Gaenslen's Test positive Sacral spine : Severe tenderness over the Sacroiliac joint: right side / left side Range of motion: Flexion of the lumbar spine <60 degrees Range of motion: Extension of the lumbar spine <20 degrees Gaenslen's Test positive Gonzalez's Test positive Yair test: positive right side / left side Thigh Thrust Test Sacral Thrust Test Assessment and plan: Chronic BL Sacroiliitis, Chronic Occipital Neuralgia Recommendation of BL +G.O.N. injections. May need a series, up until RFA, for optimal pain relief. Risks, benefits of procedure discussed and pt verbalized understanding. Denies anticoagulant use or medical history of diabetes. Chronic and current use of high-risk medication (Opioids). The patient was counseled about risk of opioid use, psychological risk associated with opioids and was orally counseled to not overuse , divert or sell medications. Pt is to store medication in a safe location. The patient is counseled against driving while using narcotic medications and also not to use alcohol or any illicit recreational drugs. Patient verbalized understanding that the lack of compliance will result in failure to renew narcotic prescription(s) as well as possible discharge from the clinic Diagnoses, prognosis and treatment options including but not limited to physical therapy, surgical interventions, interventional therapies and medication management including narcotics and adjuvant medication were discussed. All patient questions answered MAPS reviewed and it was appropriate. Urine for UDS collected today 03/30/22 Prescription refill for Percocet 5/325#60, Lyrica 150 mg #90 w 1 refill I have spent less than 30 minutes on patient care today. Dr Bowles was available by phone for the evaluation of this patient. The time was used to review the medical records including relevant urine studies and Prescription history (MAPs), review of the available imaging, evaluation and examination of the patient, coordination of care with the medical staff and if applicable referring physicians, as well as creation of the medical record PQRS Narrative: Smoking Status Never smoker Narcotic Agreement Date Signed 09/16/21 Hx Alcohol Use (MH) No Home Medications: Ambulatory Orders Testosterone Cypionate [Depo-Testosterone] 160 mg IM Q72H 01/26/19 lisinopriL [Zestril] 10 mg PO BID 01/26/19 amLODIPine [Norvasc] 5 mg PO DAILY 04/29/19 Sildenafil Citrate [Sildenafil] 20 mg PO DAILY PRN 10/20/20 Levothyroxine Sodium [Synthroid] 50 mcg PO DAILY 05/17/21 Linaclotide [Linzess] 72 mcg PO DAILY PRN 08/06/21 Omeprazole [PriLOSEC] 20 mg PO DAILY PRN 05/17/21 Albuterol Sulfate [Proair Hfa] 2 puff INHALATION RT-Q4H PRN 08/07/21 diphenhydrAMINE [Benadryl] 25 mg PO BID PRN 12/20/21 Ibuprofen [Motrin] 800 mg PO BID PRN 02/17/22 Baclofen 10 mg PO TID PRN 02/19/22 Pregabalin [Lyrica] 150 mg PO TID 30 Days #90 cap 04/09/22 oxyCODONE HCL/ACETAMINOPHEN [Percocet 5-325 mg] 2 tab PO Q12HR PRN 30 Days #60 tab 04/09/22 oxyCODONE-APAP 5-325MG [Percocet 5-325 mg] 1 tab PO Q12HR PRN 30 Days #60 tab 0 04/09/22 Controlled Substance Measures - Controlled Substance Measures Is patient prescribed a controlled substance at discharge?: Yes When asked, does pt state using other controlled substances?: Yes If prescribed controlled substance>3 days was MAPS reviewed?: Yes If Rx opioid, was Start Talking consent form obtained?: Yes If opioid is for acute pain is fill amount 7 days or less?: Yes Was information provided regarding opioid addiction?: Yes
== END ==
LOC: PNWHC3 07:43
PROVIDERS: ATTEND Specialist
DX: M46.1 Sacroiliitis, not elsewhere classified (principal); M54.81 Occipital neuralgia; Z79.891 Long term (current) use of opiate analgesic; Z88.8 Allergy status to other drugs, medicaments and biological substances
CPT/HCPCS: 80307; G0482; G0463; 99212

== ENCOUNTER → 2022-04-11 | Outpatient (CLI) | payer OTHER ==
[~2022-04-11] MED LIST changes: -DEXAMETHASONE SOD PHOSPHATE 4 MG/ML 1 ML VIAL IV ONE; -LACTATED RINGERS 1,000 ML IV SCH; -LIDOCAINE 1% (10MG/ML) FOR IV START INTRADERMA PRN; -ONDANSETRON 4 MG/2 ML VIAL IVP ONE; -SCOPOLAMINE 1 MG/72 HR PATCH TRANSDERM ONE; +SODIUM CHLORIDE 0.9% 500 ML 500 ML in EMPTY BAG 1 BAG IV PRN
[2022-04-11 11:24] VITALS: BP 117/76; PULSE 75; RESP 16; TEMP 98.7
[2022-04-11 11:33] LABS: HCT 46.2 % (39.0-53.0); HGB 14.4 gm/dL (13.0-17.5); Hypochromasia Moderate; MCHC 31.2 g/dL (31.0-37.0); MCV 86.5 fL (80.0-100.0); Mean Platelet Volume 8.8; Platelet Count 278 k/uL (150-450); RBC 5.34 m/uL (4.30-5.90); RDW 15.6 % (11.5-15.5); WBC 7.7 k/uL (3.8-10.6)
== END ==
LOC: PROCWHC3 11:08
PROVIDERS: ATTEND Internal Medicine Hematology & Oncology
DX: D45 Polycythemia vera (principal); I10 Essential (primary) hypertension; R06.02 Shortness of breath; Z88.8 Allergy status to other drugs, medicaments and biological substances
CPT/HCPCS: 36415; 85027

== ENCOUNTER 2022-04-18 12:27 | Emergency (ER) | payer OTHER ==
[2022-04-18] MEDS ORDERED: KETOROLAC 15 MG/ML 1 ML VIAL IM STA (12:57)
[2022-04-18] MEDS ORDERED: diphenhydrAMINE 50 MG/ML 1 ML VIAL IM STA (12:57)
[2022-04-18] MEDS ORDERED: methylPREDNISolone SOD SUCCI 125 MG/2 ML VIAL IM ONE (12:58)
[2022-04-18] MEDS ORDERED: METOCLOPRAMIDE 5 MG/ML 2 ML VIAL IM PRN (12:58)
--- NOTE | 2022-04-18 13:02 | ED ---
General Adult HPI - General Chief complaint: Headache Stated complaint: Headaches Time Seen by Provider: 04/18/22 12:30 Source: patient, RN notes reviewed, old records reviewed Mode of arrival: ambulatory Limitations: no limitations - History of Present Illness Initial comments: This is a 42-year-old male who presents emergency Department complaining of a headache. Patient states he has long-standing history of occipital neuralgia. Patient states he's had meningitis multiple times and had cold 3 weeks ago. Patient states anytime is gotten a fever it irritates his occipital neuritis and he has significant headaches until he gets steroid shots from the pain clinic. Patient states he is unable to get into the pain clinic for a week so he came h ere for some relief. Patient states last week she got a couple of shots and it really took away the pain in the short-term. Patient states she has nausea but no vomiting. Patient denies any chest pain or palpitations. Patient denies any fever chills. Patient denies any neurologic deficit. Patient states this same headache he's had for years. She denies any injury or trauma. Patient states the pain starts in the back of her head and radiates up toward the top had bilaterally - Related Data Home Medications Medication Instructions Recorded Confirmed Testosterone Cypionate 160 mg IM Q72H 01/26/19 04/11/22 [Depo-Testosterone] lisinopriL [Zestril] 10 mg PO BID 01/26/19 04/11/22 amLODIPine [Norvasc] 5 mg PO DAILY 04/29/19 04/11/22 Sildenafil Citrate [Sildenafil] 20 mg PO DAILY PRN 10/20/20 04/11/22 Levothyroxine Sodium [Synthroid] 50 mcg PO DAILY 05/17/21 04/11/22 Linaclotide [Linzess] 72 mcg PO DAILY PRN 05/17/21 04/11/22 Omeprazole [PriLOSEC] 20 mg PO DAILY PRN 05/17/21 04/11/22 Albuterol Sulfate [Proair Hfa] 2 puff INHALATION RT-Q4H PRN 08/07/21 04/11/22 diphenhydrAMINE [Benadryl] 25 mg PO BID PRN 12/20/21 04/11/22 Ibuprofen [Motrin] 800 mg PO BID PRN 02/17/22 04/11/22 Previous Rx's Medication Instructions Recorded Pregabalin [Lyrica] 150 mg PO TID 30 Days #90 cap 04/09/22 oxyCODONE HCL/ACETAMINOPHEN 2 tab PO Q12HR PRN 30 Days #60 tab 04/09/22 [Percocet 5-325 mg] oxyCODONE-APAP 5-325MG [Percocet 1 tab PO Q12HR PRN 30 Days #60 tab 04/09/22 5-325 mg] Baclofen 10 mg PO TID 30 Days #90 tab 04/16/22 Allergies Allergy/AdvReac Type Severity Reaction Status Date / Time benzalkonium chloride Allergy Severe Swelling Verified 04/18/22 12:28 duloxetine HCl AdvReac Severe severe Verified 04/18/22 12:28 [From Cymbalta] headache gabapentin [From Neurontin] AdvReac HEADACHE Verified 04/18/22 12:28 Review of Systems ROS Statement: Those systems with pertinent positive or pertinent negative responses have been documented in the HPI. ROS Other: All systems not noted in ROS Statement are negative. Past Medical History Past Medical History: Hypertension, Thyroid Disorder Additional Past Medical History / Comment(s): HX KIDNEY STONE, CHRONIC BACK PAIN, LOW THYROID, UMBILICAL HERNIA.back pain, had covid 08/25/21 History of Any Multi-Drug Resistant Organisms: None Reported Past Surgical History: No Surgical Hx Reported Additional Past Surgical History / Comment(s): PAIN PROCEDURES, multiple kidney stone removals, secondary polycythemia Past Anesthesia/Blood Transfusion Reactions: No Reported Reaction Additional Past Anesthesia/Blood Transfusion Reaction / Comment(s): States needs more sedation to put me asleep. Past Psychological History: No Psychological Hx Reported Smoking Status: Never smoker Past Alcohol Use History: None Reported Past Drug Use History: None Reported - Past Family History Mother History Unknown: Yes Family Medical History: Dementia Father Additional Family Medical History / Comment(s): SMOKER. General Exam - General Exam Comments Initial Comments: GENERAL: Patient is well-developed and well-nourished. Patient is nontoxic and well- hydrated and is in mild distress. ENT: Neck is soft and supple. No significant lymphadenopathy is noted. Oropharynx is clear. Moist mucous membranes. Neck has full range of motion without eliciting any pain. EYES: The sclera were anicteric and conjunctiva were pink and moist. Extraocular movements were intact and pupils were equal round and reactive to light. Eyelids were unremarkable. PULMONARY: Unlabored respirations. Good breath sounds bilaterally. No audible rales rhonchi or wheezing was noted. CARDIOVASCULAR: There is a regular rate and rhythm without any murmurs gallops or rubs. ABDOMEN: Soft and nontender with normal bowel sounds. SKIN: Skin is clear with no lesions or rashes and otherwise unremarkable. NEUROLOGIC: Patient is alert and oriented x3. Cranial nerves II through XII are grossly intact. Motor and sensory are also intact. Normal speech, volume and content. Symmetrical smile. MUSCULOSKELETAL: Normal extremities with adequate strength and full range of motion. LYMPHATICS: No significant lymphadenopathy is noted PSYCHIATRIC: Normal psychiatric evaluation. Limitations: no limitations Course Vital Signs 04/18/22 12:29 Temperature 97.9 F Pulse Rate 71 Respiratory 16 Rate Blood Pressure 124/90 O2 Sat by Pulse 98 Oximetry Medical Decision Making - Medical Decision Making patient received Reglan Solu-Medrol Benadryl and Toradol IM. Disposition Clinical Impression: Occipital neuralgia Disposition: HOME SELF-CARE Condition: Good Instructions (If sedation given, give patient instructions): Acute Headache (ED) Is patient prescribed a controlled substance at d/c from ED?: No Referrals: Ryan Loving Jr, DO [Primary Care Provider] - 1-2 days Time of Disposition: 13:02
[2022-04-18 14:10] VITALS: RESP 18
[2022-04-18 14:21] VITALS: BP 128/74; PULSE 78; TEMP 98.9
== END 2022-04-18 14:21 | disposition home or self-care (01) ==
LOC: EC 12:27
DX: M54.81 Occipital neuralgia (principal); I10 Essential (primary) hypertension; E07.9 Disorder of thyroid, unspecified; Z79.899 Other long term (current) drug therapy; Z79.890 Hormone replacement therapy
CPT/HCPCS: 99283; 96372 ×4; J1200; J2765; J2930; J1885

== ENCOUNTER 2022-05-01 06:10 | Day surgery (SDC) | payer OTHER ==
[2022-04-30 14:11] VITALS: BMI 32.8
[2022-05-01] MEDS ORDERED: LIDOCAINE 1% (10MG/ML) FOR IV START INTRADERMA PRN ×2 (06:26)
[2022-05-01] MEDS ORDERED: LACTATED RINGERS 1,000 ML IV SCH ×2 (06:26)
[2022-05-01 06:36] VITALS: TEMP 97.4
[2022-05-01] MEDS ORDERED: ONDANSETRON 4 MG/2 ML VIAL ONE (06:41)
[2022-05-01] MEDS ORDERED: ONDANSETRON 4 MG/2 ML VIAL IVP ONE (06:53)
[2022-05-01] MEDS ORDERED: MIDAZOLAM 2 MG/2 ML VIAL ONE (07:00)
[2022-05-01] MEDS ORDERED: methylPREDNISolone ACETATE 80 MG/ML 1 ML VIAL ONE (07:00)
[2022-05-01] MEDS ORDERED: ROPIVACAINE 5 MG/ML 20 ML AMPULE ONE (07:00)
[2022-05-01] MEDS ORDERED: fentaNYL (PF) 50 MCG/ML 2 ML AMP ONE (07:00)
[2022-05-01] MEDS ORDERED: IV FLUID CONTINUATION 1,000 ML IV ONE ×2 (07:16)
--- NOTE | 2022-05-01 07:18 | P.PCN ---
Date of Procedure: 05/01/22 Procedure(s) Performed: Preoperative diagnoses= 1- Greater occipital neuralgia. 2-cervicogenic headache Postoperative diagnoses= same as preoperative diagnosis. Procedure= Bilateral Greater occipital nerve block Anesthesia= monitored anesthesia care as per anesthesia department. Estimated blood loss=minimal. Procedure indication= the patient had a history of severe chronic neck pain ,and headache, diagnosed with occipital neuralgia exam was positive for severe tenderness over the occipital nerve bilaterally, she will be a good candidate occipital nerve block, patient failed conservative management Procedure description= the patient was seen and identified in the preoperative holding area, risks and benefits and alternative of the procedure and possible complications discussed with the patient, and he agreed with the preceding, patient signed the consent, an IV was started, and vital signs were monitored and were stable throughout the procedure, patient was placed in the sitting position or table and the neck area was prepped and draped with a sterile fashion, vital signs were closely monitored during the procedure, 25-gauge needle advanced 1 inch lateral to the occipital protuberance on the right side, at the location of the right occipital nerve , then after negative aspiration for heme and CSF and there was no paresthesia during the injection, 5 ml of Robivacaine 0.5% and 40 mg of Depo-Medrol injected after negative aspiration, the needle removed, and the entire same procedure was repeated for the left Greater occipital nerve. Patient tolerated the procedure well without any complication, The patient returned to supine position after the back was cleaned and a Band-Aid applied, the patient transported to recovery room in stable condition and he was monitored for 30 minutes before he was discharged home and then patient was reexamined before going home and patient was discharged in stable condition and patient will follow up with the pain clinic in a few weeks.
[2022-05-01 07:26] VITALS: RESP 16
[2022-05-01] MEDS ORDERED: diphenhydrAMINE 50 MG/ML 1 ML VIAL IVP ONE (07:44)
[2022-05-01 07:53] VITALS: BP 122/80; PULSE 68
== END 2022-05-01 08:18 | disposition home or self-care (01) ==
LOC: ORPAIN 06:10
PROVIDERS: ATTEND Specialist
DX: M54.81 Occipital neuralgia (principal); G44.86 Cervicogenic headache; I10 Essential (primary) hypertension; E07.9 Disorder of thyroid, unspecified; K21.9 Gastro-esophageal reflux disease without esophagitis; Z79.890 Hormone replacement therapy; Z79.891 Long term (current) use of opiate analgesic; Z79.899 Other long term (current) drug therapy; Z88.8 Allergy status to other drugs, medicaments and biological substances; Z91.048 Other nonmedicinal substance allergy status
CPT/HCPCS: 64405; J2250; J1200; J1040; J2405; J3010; J2795

== ENCOUNTER → 2022-06-12 | Outpatient (CLI) | payer OTHER ==
[2022-06-12 08:33] VITALS: BP 133/88; PULSE 78; RESP 16
--- NOTE | 2022-06-12 14:09 | P.PAINPG ---
PQRS Measure Charge Sheet Comment: A 42 yr old male with a history of severe and chronic low back pain secondary to lumbar degenerative disc diseases and lumbar spondylosis with facet arthropathy without myelopathy presents today for medication refills. Pain level is currently at 7/10 in intensity, constant, localized in the lower lumbar spine, dull/ achy in character w shooting towards the BLEs. Pain is provoked by standing/ walking for periods of 20 min or more. Pain is alleviated with chiropractic treatments w last visit 2 wks ago, medications, repositioning and rest. Interventional pain procedures completed include BL RFA L3-L5 Patient is currently on Percocet 5/325mg #60, Lyrica 150mg #90, Baclofen 10mg #90 Patient denies any side effects of the medication(s), denies excessive drowsiness or sleepiness, denies suicidal ideation and reports that the current pain medication is helping to control the pain and improve activities of daily living. Patient denies any motor or sensory deficits. Patient denies any fever or night sweats, denies any change in the bowel movements or urination. Physical Examination: -Constitutional: Cooperative. Not in acute distress . - Neurologic: Cranial nerve II to XII intact. No focal neurological deficits. - Psychatric: Alert & oriented x 3. Matching mood & appropriate affect. Judgment and insight intact. - Musculoskeletal: Cervical spine: Muscle bulk/ tone/ strength in the bilateral upper extremities normal Vertebral body tenderness to palpation over Spurling test positive Distraction test positive Facet loading test positive Thoracic spine Muscle bulk / tone/ strength in the bilateral paraspinal muscles normal Vertebral body tender to palpation over Facet loading test positive Lumbar spine: Motor bulk/ tone/ strength lower extremities , thigh and legs : 5/5 Deep tendon reflexes : Normal Knee Jerk. Normal Ankle Jerk . Vertebral body tenderness to palpation over Lumbar Facet Loading Test positive over BL L4-L5, L5-S1, L>R Straight Leg Raise: positive at 30 degrees right side/ left side Gaenslen's Test positive Sacral spine : Severe tenderness over the Sacroiliac joint: right side / left side Range of motion: Flexion of the lumbar spine <60 degrees Range of motion: Extension of the lumbar spine <20 degrees Gaenslen's Test positive Gonzalez's Test positive Yair test: positive right side / left side Thigh Thrust Test Sacral Thrust Test Assessment and plan: Chronic low back pain secondary to lumbar degenerative disc disease , lumbar spondylosis with facet arthropathy without myelopathy Recommendation of BL RFA L4-L5, L5-S1. Pt exhibited sufficient and substantial pain relief w prior RFA in December 2021. Risks, benefits of procedure discussed and pt verbalized understanding. Denies anticoagulant use or medical history of diabetes. Chronic and current use of high-risk medication (Opioids). The patient was counseled about risk of opioid use, psychological risk associated with opioids and was orally counseled to not overuse , divert or sell medications. Pt is to store medication in a safe location. The patient is counseled against driving while using narcotic medications and also not to use alcohol or any illicit recreational drugs. Patient verbalized understanding that the lack of compliance will result in failure to renew narcotic prescription(s) as well as possible discharge from the clinic Diagnoses, prognosis and treatment options including but not limited to physical therapy, surgical interventions, interventional therapies and medication management including narcotics and adjuvant medication were discussed. All patient questions answered MAPS reviewed and it was appropriate. UDS from 04/09/22 reviewed and consistent Prescription refill for Percocet 5/325mg #60, Lyrica 150mg #90, Baclofen I have spent less than 30 minutes on patient care today. Dr Bowles was available by phone for the evaluation of this patient. The time was used to review the medical records including relevant urine studies and Prescription history (MAPs), review of the available imaging, evaluation and examination of the patient, coordination of care with the medical staff and if applicable referring physicians, as well as creation of the medical record - Pain Location Lower Back Non-Pharmacological Interventions: Heat, Home Exercise, Inactivity, Massage, P osition/Reposition, Relaxation Technique, Stretching Pharmacological Interventions: Block, Epidural, Medication PQRS Narrative: Smoking Status Never smoker Narcotic Agreement Date Signed 09/16/21 Hx Alcohol Use (MH) No Home Medications: Ambulatory Orders Testosterone Cypionate [Depo-Testosterone] 160 mg IM Q72H 01/26/19 lisinopriL [Zestril] 10 mg PO BID 01/26/19 amLODIPine [Norvasc] 5 mg PO DAILY 04/29/19 Sildenafil Citrate [Sildenafil] 20 mg PO DAILY PRN 10/20/20 Levothyroxine Sodium [Synthroid] 50 mcg PO DAILY 05/17/21 Linaclotide [Linzess] 72 mcg PO DAILY PRN 05/17/21 Omeprazole [PriLOSEC] 20 mg PO DAILY PRN 05/17/21 Albuterol Sulfate [Proair Hfa] 2 puff INHALATION RT-Q4H PRN 08/07/21 diphenhydrAMINE [Benadryl] 25 mg PO BID PRN 12/20/21 Ibuprofen [Motrin] 800 mg PO BID PRN 02/17/22 Baclofen 10 mg PO TID 30 Days #90 tab 06/12/22 Pregabalin [Lyrica] 150 mg PO TID 30 Days #90 cap 06/12/22 oxyCODONE HCL/ACETAMINOPHEN [Percocet 5-325 mg] 1 tab PO Q12HR PRN 30 Days #60 tab 06/12/22 oxyCODONE HCL/ACETAMINOPHEN [Percocet 5-325 mg] 1 tab PO Q12HR PRN 30 Days #60 tab 06/12/22 Controlled Substance Measures - Controlled Substance Measures Is patient prescribed a controlled substance at discharge?: Yes When asked, does pt state using other controlled substances?: Yes If prescribed controlled substance>3 days was MAPS reviewed?: Yes If Rx opioid, was Start Talking consent form obtained?: Yes Was information provided regarding opioid addiction?: Yes
== END ==
LOC: PNWHC3 08:04
PROVIDERS: ATTEND Specialist
DX: M47.816 Spondylosis without myelopathy or radiculopathy, lumbar region (principal); M51.36 Other intervertebral disc degeneration, lumbar region; G89.29 Other chronic pain; Z79.891 Long term (current) use of opiate analgesic; Z88.8 Allergy status to other drugs, medicaments and biological substances
CPT/HCPCS: 99211

== ENCOUNTER → 2022-08-07 | Outpatient (CLI) | payer OTHER ==
[2022-08-07 08:04] VITALS: BP 124/80; PULSE 95; RESP 18; TEMP 98.9
--- NOTE | 2022-08-07 09:24 | P.PAINPG ---
PQRS Measure Charge Sheet Comment: A 42 yr old male with a history of severe and chronic low back pain secondary to lumbar degenerative disc diseases and lumbar spondylosis with facet arthropathy without myelopathy presents today for medication refills and evaluation s/p BL L2-S1 TPIs. Pt sates he received 70% relief x 2 wks s/p procedure. Pain level is currently at 8/10 in intensity, constant, localized in lower lumbar spine, achy in character w shooting towards the BL thighs and calves. Pain is provoked by overactivity or lifting. Pain is alleviated with chiropractic treatments 3 x per week, meds (Percocet, Lyrica), heat, ice, hot tub soaks, home exercise regimen, repositioning and rest . Interventional pain procedures completed include BL RFA L3-L5, BL L2-S1 TPIs Patient is currently on Percocet 5/325mg #60, Lyrica 150mg #90, Baclofen #90 Patient denies any side effects of the medication(s), denies excessive drowsiness or sleepiness, denies suicidal ideation and reports that the current pain medication is helping to control the pain and improve activities of daily living. Patient denies any motor or sensory deficits. Patient denies any fever or night sweats, denies any change in the bowel movements or urination. Physical Examination: -Constitutional: Cooperative. Not in acute distress . - Neurologic: Cranial nerve II to XII intact. No focal neurological deficits. - Psychatric: Alert & oriented x 3. Matching mood & appropriate affect. Judgment and insight intact. - Musculoskeletal: Cervical spine: Muscle bulk/ tone/ strength in the bilateral upper extremities normal Vertebral body tenderness to palpation over Spurling test positive Distraction test positive Facet loading test positive Thoracic spine Muscle bulk / tone/ strength in the bilateral paraspinal muscles normal Vertebral body tender to palpation over Facet loading test positive Lumbar spine: Motor bulk/ tone/ strength lower extremities , thigh and legs : 5/5 Deep tendon reflexes : Normal Knee Jerk. Normal Ankle Jerk . Vertebral body tenderness to palpation over Lumbar Facet Loading Test positive Straight Leg Raise: positive at 30 degrees right side/ left side Gaenslen's Test positive Sacral spine : Severe tenderness over the Sacroiliac joint: right side / left side Range of motion: Flexion of the lumbar spine <60 degrees Range of motion: Extension of the lumbar spine <20 degrees Gaenslen's Test positive BL Yair test: positive right side / left side BL Thigh Thrust Test Sacral Thrust Test R, L Assessment and plan: Chronic low back pain secondary to lumbar degenerative disc disease , lumbar spondylosis with facet arthropathy without myelopathy Recommendation of BL SI injection. May need a series, up to 4 per 12 mo period, for optimal pain relief. Risks, benefits of procedure discussed and pt verbalized understanding. Denies anticoagulant use or medical history of diabetes. Chronic and current use of high-risk medication (Opioids). The patient was counseled about risk of opioid use, psychological risk associated with opioids and was orally counseled to not overuse , divert or sell medications. Pt is to store medication in a safe location. The patient is counseled against driving while using narcotic m edications and also not to use alcohol or any illicit recreational drugs. Patient verbalized understanding that the lack of compliance will result in failure to renew narcotic prescription(s) as well as possible discharge from the clinic Diagnoses, prognosis and treatment options including but not limited to physical therapy, surgical interventions, interventional therapies and medi cation management including narcotics and adjuvant medication were discussed. All patient questions answered MAPS reviewed and it was appropriate. UDS from 04/09/22 reviewed and consistent Prescription refill for Percocet 5/325 #60 w 1 RF, Lyrica 150mg #90 w 1 RF, Baclofen #90 w 1 RF I have spent less than 30 minutes on patient care today. Dr Bowles was available by phone for the evaluation of this patient. The time was used to review the medical records including relevant urine studies and Prescription history (MAPs), review of the available imaging, evaluation and examination of the patient, coordination of care with the medical staff and if applicable referring physicians, as well as creation of the medical record - Pain Location Bilateral Lower Back Non-Pharmacological Interventions: Chiropractic Treatment, Heat, Ice, Inactivity, Position/Reposition, Stretching Pharmacological Interventions: Medication, PRN Medication, Scheduled Medication PQRS Narrative: Smoking Status Never smoker Narcotic Agreement Date Signed 09/16/21 Hx Alcohol Use (MH) No Home Medications: Ambulatory Orders Testosterone Cypionate [Depo-Testosterone] 160 mg IM Q72H 01/26/19 Sildenafil Citrate [Sildenafil] 20 mg PO DAILY PRN 10/20/20 Linaclotide [Linzess] 72 mcg PO DAILY PRN 05/17/21 Omeprazole [PriLOSEC] 20 mg PO DAILY PRN 05/17/21 Albuterol Sulfate [Proair Hfa] 2 puff INHALATION RT-Q4H PRN 08/07/21 diphenhydrAMINE [Benadryl] 25 mg PO BID PRN 12/20/21 Ibuprofen [Motrin] 800 mg PO BID PRN 02/17/22 Baclofen 10 mg PO TID 30 Days #90 tab 08/07/22 Pregabalin [Lyrica] 150 mg PO TID 30 Days #90 cap 08/07/22 oxyCODONE HCL/ACETAMINOPHEN [Percocet 5-325 mg] 1 tab PO Q12HR PRN 30 Days #60 tab 08/07/22 oxyCODONE HCL/ACETAMINOPHEN [Percocet 5-325 mg] 2 tab PO Q12HR PRN 30 Days #60 tab 08/07/22 Controlled Substance Measures - Controlled Substance Measures Is patient prescribed a controlled substance at discharge?: Yes When asked, does pt state using other controlled substances?: Yes If prescribed controlled substance>3 days was MAPS reviewed?: Yes If Rx opioid, was Start Talking consent form obtained?: Yes Was information provided regarding opioid addiction?: Yes
== END ==
LOC: PNWHC3 07:12
PROVIDERS: ATTEND Specialist
DX: M47.816 Spondylosis without myelopathy or radiculopathy, lumbar region (principal); G89.4 Chronic pain syndrome; I10 Essential (primary) hypertension; M51.36 Other intervertebral disc degeneration, lumbar region; Z88.8 Allergy status to other drugs, medicaments and biological substances; Z88.6 Allergy status to analgesic agent
CPT/HCPCS: 99211

== ENCOUNTER 2022-08-28 10:08 | Day surgery (SDC) | payer OTHER ==
[2022-08-28 10:25] VITALS: TEMP 96.9
[2022-08-28] MEDS ORDERED: LACTATED RINGERS 1,000 ML IV ONE (10:25)
[2022-08-28] MEDS ORDERED: diphenhydrAMINE 50 MG/ML 1 ML VIAL ONE (10:26)
[2022-08-28] MEDS ORDERED: ONDANSETRON 4 MG/2 ML VIAL ONE (10:26)
[2022-08-28] MEDS ORDERED: diphenhydrAMINE 50 MG/ML 1 ML VIAL IVP ONE (10:28)
[2022-08-28] MEDS ORDERED: ONDANSETRON 4 MG/2 ML VIAL IVP ONE (10:28)
[2022-08-28] MEDS ORDERED: MIDAZOLAM 2 MG/2 ML VIAL ONE (10:31)
[2022-08-28] MEDS ORDERED: fentaNYL (PF) 50 MCG/ML 2 ML AMP ONE (10:31)
[2022-08-28] MEDS ORDERED: methylPREDNISolone ACETATE 40 MG/ML 1 ML VIAL ONE (10:31)
[2022-08-28] MEDS ORDERED: ROPIVACAINE 5 MG/ML 20 ML AMPULE ONE (10:31)
--- NOTE | 2022-08-28 10:46 | P.PCN ---
Date of Procedure: 08/28/22 Procedure(s) Performed: Procedure= bilateral sacroiliac joints steroid injection under fluoroscopy guidance (fluoroscopy image stored on file in the radiology Department ) Preoperative diagnosis= 1-sacroiliitis 2-lumbar degenerative disc disease 3- lumbar facet arthropathy Postoperative diagnosis=Same as preop Diagnosis . Complication = none Condition= stable Anesthesia= moderate sedation with intravenous Versed 2 mg , and fentanyl 100 micrograms . Sedation start time 1033. Sedation end time 1043 Indication for the procedure= patient complaining of low back pain , examination was positive for severe tenderness over the sacroiliac joints bilaterally and patient diagnosed with sacroiliitis, for this reason, he was good candidate for sacroiliac joint steroid injection. Description of the procedure= procedure risk and benefits discussed with the patient, including but not limited, risk of infection and bleeding, and ALLERGIC reaction to the medication and not complete pain relief and patient agreed with the preceding patient taken to the operating room, placed in prone position or standard monitors applied to the patient then after induction of anesthesia back prepped with chlorhexidine 3 times , Then under strict sterile technique, first I did the right sacroiliac joint the which was identified under fluoroscopy guidance been local infiltration of the skin and subcu interstitial with lidocaine 1% then 22-gauge Quincke Needle advanced slowly under fluoroscopy and placed in the right sacroiliac joint needle placement confirmed with AP and oblique and lateral view and after appropriate needle placement confirmed and after negative aspiration, or heme , then Ropivacaine 0.5% 4 mL, and 40 mg of Depo-Medrol mixed together and injected in the right sacroiliac joint after negative aspiration patient tolerated the procedure well without any complication. Then the left sacroiliac joint steroid injection done under strict sterile technique local infiltration of the skin and subcu interstitial at the location of the left sacroiliac joint then a 22-gauge Quincke Needle advanced slowly under fluoroscopy time placed in the left sacroiliac joint, needle placement confirmed with AP and oblique and lateral view then after appropriate needle placement confirmed and after negative aspiration 0.5% Ropivacaine 4 mL and 40 mg of Depo-Medrol injected in the left sacroiliac joint after negative aspiration patient tolerated the procedure well that any complications and she will follow up in clinic 3 weeks
[2022-08-28] MEDS ORDERED: IV FLUID CONTINUATION 1,000 ML IV ONE (10:49)
[2022-08-28 10:55] VITALS: RESP 18
--- NOTE | 2022-08-28 10:59 | FL ---
EXAMINATION TYPE: FL guided pain mgmt statistic DATE OF EXAM: 08/28/2022 HISTORY: Fluoroscopy time 7 seconds of fluoroscopy provided. IMPRESSION: 1. Fluoroscopy time.
[2022-08-28 11:33] VITALS: BP 135/60; PULSE 56
== END 2022-08-28 11:41 | disposition home or self-care (01) ==
LOC: ORPAIN 10:08
PROVIDERS: ATTEND Specialist
DX: M46.1 Sacroiliitis, not elsewhere classified (principal); M51.36 Other intervertebral disc degeneration, lumbar region; M12.88 Other specific arthropathies, not elsewhere classified, other specified site
CPT/HCPCS: J2250; J1200; J1030; J2405; J3010; J2795; G0260

== ENCOUNTER → 2022-09-15 | Outpatient (CLI) | payer OTHER ==
[2022-09-15 11:12] VITALS: BP 134/91; PULSE 65; RESP 18; TEMP 98.6
--- NOTE | 2022-09-15 15:36 | P.PAINPG ---
PQRS Measure Charge Sheet Comment: A 42 yr old male with a history of severe and chronic low back pain secondary to lumbar DDD and spondylosis with facet arthropathy without myelopathy adn BL Sacroiliitis presents today for medication refills & evaluation s/p BL SI injection. Pt states he experienced 70% pain relief x 3 wks s/p procedure. Pain level is currently at 7/10 in intensity, constant, localized in the lower lumbar spine, dull/ achy in character w shooting towards the BL hips. Pain is provoked by standing/ bending for periods of 20 min or more. Pain is alleviated with chiropractic treatments w massage twice weekly, heat, home exercise regimen as tolerated, repositioning and rest. Pt states he underwent an RFA BL L4-L5, L5-S1 and experienced 80% pain relief x 5 1/2 mo s/p procedure. Interventional pain procedures completed include BL SI injection Patient is currently on Percocet, Baclofen, Lyrica, Ibu Patient denies any side effects of the medication(s), denies excessive drowsiness or sleepiness, denies suicidal ideation and reports that the current pain medication is helping to control the pain and improve activities of daily living. Patient denies any motor or sensory deficits. Patient denies any fever or night sweats, denies any change in the bowel movements or urination. Physical Examination: -Constitutional: Cooperative. Not in acute distress . - Neurologic: Cranial nerve II to XII intact. No focal neurological deficits. - Psychatric: Alert & oriented x 3. Matching mood & appropriate affect. Judgment and insight intact. - Musculoskeletal: Cervical spine: Muscle bulk/ tone/ strength in the bilateral upper extremities normal Vertebral body tenderness to palpation over Spurling test positive Distraction test positive Facet loading test positive Thoracic spine Muscle bulk / tone/ strength in the bilateral paraspinal muscles normal Vertebral body tender to palpation over Facet loading test positive Lumbar spine: Motor bulk/ tone/ strength lower extremities , thigh and legs : 5/5 Deep tendon reflexes : Normal Knee Jerk. Normal Ankle Jerk . Vertebral body tenderness to palpation over Lumbar Facet Loading Test positive jump reflex over BL L4-L5, L5-S1 facets Straight Leg Raise: positive at 30 degrees right side/ left side Gaenslen's Test positive Sacral spine : Severe tenderness over the Sacroiliac joint: right side / left side Range of motion: Flexion of the lumbar spine <60 degrees Range of motion: Extension of the lumbar spine <20 degrees Gaenslen's Test positive Yair test: positive right side / left side Thigh Thrust Test Sacral Thrust Test Assessment and plan: Chronic low back pain secondary to lumbar degenerative disc disease, spondylosis with facet arthropathy without myelopathy Recommendation of BL RFA L4-L5, L5-S1. Pt exhibited substantial pain relief w prior RFA procedure. Risks, benefits of procedure discussed and pt verbalized understanding. Admits to anticoagulant use or medical history of diabetes. Protocol for discontinuation/ continuation of medications peter procedure discussed. Chronic and current use of high-risk medication (Opioids). The patient was counseled about risk of opioid use, psychological risk associated with opioids and was orally counseled to not overuse , divert or sell medications. Pt is to store medication in a safe location. The patient is counseled against driving while using narcotic medications and also not to use alcohol or any illicit recreational drugs. Patient verbalized understanding that the lack of compliance will result in failure to renew narcotic prescription(s) as well as possible discharge from the clinic Diagnoses, prognosis and treatment options including but not limited to physical therapy, surgical interventions, interventional therapies and medication management including narcotics and adjuvant medication were discussed. All patient questions answered MAPS reviewed and it was appropriate. Prescription refill for Percocet 5/325mg #60, Lyrica #60, Baclofen & Ibuprofen w 1 RF I have spent less than 30 minutes on patient care today. Dr Bowles was available by phone for the evaluation of this patient. The time was used to review the medical records including relevant urine studies and Prescription history (MAPs), review of the available imaging, evaluation and examination of the patient, coordination of care with the medical staff and if applicable referring physicians, as well as creation of the medical record - Pain Location Bilateral Hip Non-Pharmacological Interventions: Chiropractic Treatment, Heat, Home Exercise, Massage, Position/Reposition, Stretching Pharmacological Interventions: PRN Medication, Scheduled Medication PQRS Narrative: Smoking Status Never smoker Narcotic Agreement Date Signed 09/16/21 Hx Alcohol Use (MH) No Home Medications: Ambulatory Orders Testosterone Cypionate [Depo-Testosterone] 160 mg IM Q72H 01/26/19 Sildenafil Citrate [Sildenafil] 20 mg PO DAILY PRN 10/20/20 Linaclotide [Linzess] 72 mcg PO DAILY PRN 08/06/21 Omeprazole [PriLOSEC] 20 mg PO DAILY PRN 05/17/21 Albuterol Sulfate [Proair Hfa] 2 puff INHALATION RT-Q4H PRN 08/07/21 diphenhydrAMINE [Benadryl] 25 mg PO BID PRN 12/20/21 Baclofen 10 mg PO TID 30 Days #90 tab 09/15/22 Ibuprofen [Motrin] 800 mg PO BID PRN 30 Days #60 tab 09/15/22 Pregabalin [Lyrica] 150 mg PO TID 30 Days #90 cap 09/15/22 oxyCODONE HCL/ACETAMINOPHEN [Percocet 5-325 mg] 1 tab PO Q12HR PRN 30 Days #60 tab 09/15/22 oxyCODONE HCL/ACETAMINOPHEN [Percocet 5-325 mg] 2 tab PO Q12HR PRN 30 Days #60 tab 09/15/22 Controlled Substance Measures - Controlled Substance Measures Is patient prescribed a controlled substance at discharge?: Yes When asked, does pt state using other controlled substances?: Yes If prescribed controlled substance>3 days was MAPS reviewed?: Yes If Rx opioid, was Start Talking consent form obtained?: Yes Was information provided regarding opioid addiction?: Yes
== END ==
LOC: PNWHC3 10:22
PROVIDERS: ATTEND Specialist
DX: M47.816 Spondylosis without myelopathy or radiculopathy, lumbar region (principal); M51.36 Other intervertebral disc degeneration, lumbar region; G89.29 Other chronic pain; Z88.8 Allergy status to other drugs, medicaments and biological substances
CPT/HCPCS: 99211

== ENCOUNTER 2022-09-26 06:53 | Day surgery (SDC) | payer OTHER ==
[2022-09-26] MEDS ORDERED: ONDANSETRON 4 MG/2 ML VIAL ONE (07:29)
[2022-09-26] MEDS ORDERED: LACTATED RINGERS 1,000 ML IV SCH (07:30)
[2022-09-26 07:33] VITALS: RESP 16; TEMP 97
[2022-09-26] MEDS ORDERED: ONDANSETRON 4 MG/2 ML VIAL IVP ONE (07:40)
[2022-09-26] MEDS ORDERED: diphenhydrAMINE 50 MG/ML 1 ML VIAL ONE (07:40)
[2022-09-26] MEDS ORDERED: fentaNYL (PF) 50 MCG/ML 2 ML AMP ONE (07:48)
[2022-09-26] MEDS ORDERED: ROPIVACAINE 5 MG/ML 20 ML AMPULE ONE (07:48)
[2022-09-26] MEDS ORDERED: MIDAZOLAM 2 MG/2 ML VIAL ONE (07:48)
--- NOTE | 2022-09-26 08:17 | P.PCN ---
Date of Procedure: 09/26/22 Description of Procedure: Pre- and Post-operative Diagnosis: Lumbar facet arthropathy, and lumbar spon dylosis without myelopathy. Procedure: Bilateral L4-5 radiofrequency thermocoagulation of medial branch under fluoroscopic guidance Bilateral L5-S1 dorsal ramus radiofrequency thermocoagulation under fluoroscopic guidance Surgeon: Juliana Flores Anesthesia: Local: 1% Lidocaine, IV sedation : Midazolam 2 mg, and fentanyl 100 micrograms, Benadryl 50 mg Complications: None Estimated blood loss: None. Specimen removed: None Fluoroscopic image: Saved to patient electronic medical records. Indications for Procedure: The patient is well known to pain clinic for his chronic low back pain management. The lumbar facet loading test was positive with a clinical diagnosis of lumbar facet arthropathy. Patient had marked decrease in pain after the diagnostic medial branch procedure. Came here for radiofrequency ablation for longer pain relief. PROCEDURE DESCRIPTION: The patient was seen and identified in the preoperative area. Risks, benefits, complications, and alternatives were discussed with the patient. The patient agreed to proceed with the procedure and signed the consent. IV was started. Vital signs were stable. Patient was taken to the procedure room and timeout was completed. The patient was placed in the prone position on procedure table and a pillow was placed under the abdomen to reduce lumbar lordosis. The lumbosacral area was prepped and draped in the usual sterile fashion. Critical pause was taken. Vital signs were closely monitored during the procedure. The fluoroscopic camera was placed in the anteroposterior position to identify the junction of superior articular process and its corresponding injection with its transverse process of Right side L4, L5, S1, which were anesthetized with 1% lidocaine. We used 18-gauge 100-mm curved, sharp radiofrequency cannula with 10-mm active tip for the procedure. The first cannula was guided by fluoroscopy to the S1 superior articular process and its corresponding junction with its ala. The second cannula was guided by fluoroscopy into the L5 superior articular process and its corresponding junction with its transverse process and pedicle. The third cannula was guided by fluoroscopy into the L4 SAP and its corresponding junction with its transverse process and its pedicle. After confirmation of needle tip position on oblique view, each site underwent motor testing at 2 Hz and 0 to 2.5 volts, and there was good motor stimulation in the back and no radicular symptoms or paresthesias. After confirmation of motor testing, 0.5 mL of block solution injected at each site . Block solution contained 4 mL of 0.5% ropivacaine preservative free mixed with 40 MG of Kenalog. At this time, each site was ablated using continuous radiofrequency mode at 80 degrees Celsius for 90 seconds at each level. At the end of the procedure, each needle was retracted approximately 1 cm and the skin was infiltrated with 0.5% ropivacaine preservative free 1 ml at each site. Skin was cleansed and bandages were applied. Entire procedure repeated on the left side. Skin was cleansed and bandages were applied. Disposition : The patient tolerated the procedure very well. The patient was transferred to the recovery room and remained stable until discharged home. The patient was given detailed discharge instructions for infection, bleeding, and increased pain at the injection site, and was advised to seek immediate medical attention should significant side effects develop. The patient will be scheduled with Pain Clinic within 4 weeks.
[2022-09-26] MEDS ORDERED: LACTATED RINGERS 500 ML IV ONE (08:20)
[2022-09-26 08:46] VITALS: BP 125/86; PULSE 60
--- NOTE | 2022-09-26 08:48 | FL ---
EXAMINATION TYPE: FL guided pain mgmt statistic DATE OF EXAM: 09/26/2022 HISTORY: Fluoroscopy time 10 seconds of fluoroscopy provided. IMPRESSION: 1. Fluoroscopy time.
== END 2022-09-26 09:11 | disposition home or self-care (01) ==
LOC: ORPAIN 06:53
PROVIDERS: ATTEND Anesthesiology
DX: M47.816 Spondylosis without myelopathy or radiculopathy, lumbar region (principal); J45.909 Unspecified asthma, uncomplicated; Z87.442 Personal history of urinary calculi; K21.9 Gastro-esophageal reflux disease without esophagitis; Z88.8 Allergy status to other drugs, medicaments and biological substances; Z90.49 Acquired absence of other specified parts of digestive tract; Z98.890 Other specified postprocedural states; Z79.51 Long term (current) use of inhaled steroids; Z79.891 Long term (current) use of opiate analgesic; Z79.1 Long term (current) use of non-steroidal anti-inflammatories (NSAID); Z79.899 Other long term (current) drug therapy
CPT/HCPCS: 64635; 64636; J2250; J2405; J3010; J2795

== ENCOUNTER 2023-01-15 05:11 | Observation (INO) | payer OTHER ==
[2023-01-15] MEDS ORDERED: SODIUM CHLORIDE 0.9% 1,000 ML IV STA (05:26)
--- NOTE | 2023-01-15 05:31 | ED ---
General Adult HPI - General Chief complaint: Chest Pain Stated complaint: Weakness Time Seen by Provider: 01/15/23 05:16 Source: patient Mode of arrival: wheelchair Limitations: no limitations - History of Present Illness Initial comments: Dictation was produced using [employer] dictation software. please excuse any grammatical, word or spelling errors. Chief Complaint: 43-year-old male with chronic pain presents to emergency department for generalized weakness History of Present Illness: 43-year-old male presents emergency department for generalized weakness. Patient is recently diagnosed with bronchitis with primary care physician's office. He recently tested overall infections. Over the last several weeks he has completed a course of 2 antibiotics. States that he saw his primary care doctor earlier today and was sent home. At around 4 AM patient states that he felt super week prompting him to come to the emergency department states that he is barely able to drive here. He complains of joint pain to all of his joints. Denies any fever or constitutional symptoms. He has had this chronic sore throat ongoing for the last several days. Denies any fever or constitutional symptoms. He does have a productive cough. Today he started to have some chest pain that rated of the left upper extremity. Patient has a history of heart attack. The ROS documented in this emergency department record has been reviewed and confirmed by me. Those systems with pertinent positive or negative responses have been documented in the HPI. All other systems are other negative and/or noncontributory. PHYSICAL EXAM: General Impression: Alert and oriented x3, not in acute distress HEENT: Normocephalic atraumatic, extra-ocular movements intact, pupils equal and reactive to light bilaterally, mucous membranes moist. Cardiovascular: Heart regular rate and rhythm Chest: Able to complete full sentences, no retractions, no tachypnea Abdomen: abdomen soft, non-tender, non-distended, no organomegaly Musculoskeletal: Pulses present and equal in all extremities, no peripheral edema Motor: no focal deficits noted Neurological: CN II-XII grossly intact, no focal motor or sensory deficits noted Skin: Intact with no visualized rashes Psych: Normal affect and mood ED course: 43-year-old male well-known to emergency department for chronic pain presents to the ER for symptoms consistent with upper respiratory infection. He does have some atypical chest pain with typical features. Vital signs upon arrival are within acceptable limits. EKG does not show any signs of ischemia or infarction. Nursing notes and chart review was performed EKG interpreted by me: Ventricular rate 100, sinus tachycardia,. 180, QRS 94, QTC 416. No SD prolongation, no QTC prolongation, no ST or T-wave changes noted. . Overall, this EKG is unremarkable Was pt. sent in by a medical professional or institution (SCOOBY Neely, CUSTOMER SERVICE ASSISTANT, urgent care, hospital, or long-term...) When possible be specific @ -No Did you speak to anyone other than the patient for history (EMS, parent, family, police, friend...)? What history was obtained from this source @ -No Did you review nursing and triage notes (agree or disagree)? Why? @ -I reviewed and agree with nursing and triage notes Were old charts reviewed (outside hosp., previous admission, EMS record, old EKG, old radiological studies, urgent care reports/EKG's, long-term records)? Report findings @ -Prior charting reviewed Differential Diagnosis (chest pain, altered mental status, abdominal pain women, abdominal pain men, vaginal bleeding, musculoskeletal, weakness, fever, dyspnea, syncope, headache, dizziness, GI bleed, back pain, seizure, CVA, palpatations, mental health)? @ -Differential Chest Pain: Stable Angina, Unstable Angina, STEMI, NSTEMI Aortic Dissection, Pneumothorax, Musculoskeletal, Esophageal Spasm GERD, Cholecystitis, Pancreatitis, Zoster, this is not meant to be an all-inclusive list. EKG interpreted by me (3pts min.). @ -See above X-rays interpreted by me (1pt min.). @ -mild cardiomegaly CT interpreted by me (1pt min.). @ -None done U/S interpreted by me (1pt. min.). @ -None done What testing was considered but not performed or refused? (CT, X-rays, U/S, labs)? Why? @ -None What meds were considered but not given or refused? Why? @ -None Did you discuss the management of the patient with other professionals (professionals i.e. SCOOBY Neely, CUSTOMER SERVICE ASSISTANT, lab, RT, psych nurse, social services specialist, computing machine operator, teacher, associate loan officer, patient case coordinator)? Give summary @ -No Was smoking cessation discussed for >3mins.? @ -No Was critical care preformed (if so, how long)? @ -No Were there social determinants of health that impacted care today? How? (Homelessness, low income, unemployed, alcoholism, drug addiction, transportation, low edu. Level, literacy, decrease access to med. care, long term, rehab)? @ -No Was there de-escalation of care discussed even if they declined (Discuss DNR or withdrawal of care, Hospice)? DNR status @ -No What co-morbidities impacted this encounter? (DM, HTN, Smoking, COPD, CAD, Cancer, CVA, ARF, Chemo, Hep., AIDS, mental health diagnosis, sleep apnea, morbid obesity)? @ -History of chronic pain Was patient admitted / discharged? Hospital course, mention meds given and route, prescriptions, significant lab abnormalities, going to OR and other pert inent info. @ -43-year-old male presents emergency department for her viral symptoms. He has associated arthralgias. Patient's well. I bedside stable vital signs. He does report severe weakness however doesn't appear lethargic or malaise at the bedside. Laboratory evaluation obtained. CBC is unremarkable. Coag panel metabolic panel is negative. Viral swabbing is negative. Group A strep is negative. Chest x-ray shows mild cardiomegaly. Serial vital signs are unremar kable. He does report atypical chest pain with typical features. Patient does have some risk factors. Patient agreeable for observation admission for serial troponins. Undiagnosed new problem with uncertain prognosis? @ -No Drug Therapy requiring intensive monitoring for toxicity (Heparin, Nitro, Insulin, Cardizem)? @ -No Were any procedures done? @ -No Diagnosis/symptom? Acute, or Chronic, or Acute on Chronic? Uncomplicated (without systemic symptoms) or Complicated (systemic symptoms)? @ -1. Viral illness Side effects of treatment? @ -No Exacerbation, Progression, or Severe Exacerbation? @ -No Poses a threat to life or bodily function? How? (Chest pain, [place], [place], pneumonia, PE, COPD, DKA, ARF, appy, cholecystitis, CVA, Diverticulitis, Homicidal, Suicidal, threat to staff... and all critical care pts) @ -No - Related Data Home Medications Medication Instructions Recorded Confirmed Testosterone Cypionate 200 mg IM Q72H 01/26/19 01/15/23 [Depo-Testosterone] Azithromycin [Zithromax Z Pack] See Taper PO DAILY 01/15/23 01/15/23 Sildenafil Citrate 25 mg PO DAILY PRN 01/15/23 01/15/23 oxyCODONE HCL/ACETAMINOPHEN 2 tab PO DAILY 01/15/23 01/15/23 [Percocet 5-325 mg] oxyCODONE-APAP 5-325MG [Percocet 1 - 2 tab PO DAILY PRN 01/15/23 01/15/23 5-325 mg] predniSONE See Taper PO DAILY 01/15/23 01/15/23 Previous Rx's Medication Instructions Recorded Baclofen 10 mg PO TID 30 Days #90 tab 09/15/22 Allergies Allergy/AdvReac Type Severity Reaction Status Date / Time benzalkonium chloride Allergy Severe Swelling Verified 01/15/23 08:19 oxycodone Allergy Itching, Verified 01/15/23 09:40 still taking percocet at home duloxetine HCl AdvReac Severe severe Verified 01/15/23 08:19 [From Cymbalta] headache gabapentin [From Neurontin] AdvReac HEADACHE Verified 01/15/23 08:19 Review of Systems ROS Statement: Those systems with pertinent positive or pertinent negative responses have been documented in the HPI. ROS Other: All systems not noted in ROS Statement are negative. Past Medical History Past Medical History: Hypertension, Thyroid Disorder Additional Past Medical History / Comment(s): severe headache,HX KIDNEY STONE, CHRONIC BACK PAIN, LOW THYROID, UMBILICAL HERNIA.back pain, had covid 08/25/21 and March 2022 History of Any Multi-Drug Resistant Organisms: None Reported Past Surgical History: No Surgical Hx Reported Additional Past Surgical History / Comment(s): PAIN PROCEDURES, multiple kidney stone removals, secondary polycythemia Past Anesthesia/Blood Transfusion Reactions: No Reported Reaction Additional Past Anesthesia/Blood Transfusion Reaction / Comment(s): States needs more sedation to put me asleep. Past Psychological History: No Psychological Hx Reported Smoking Status: Never smoker - Past Family History Mother History Unknown: Yes Family Medical History: Dementia Father Additional Family Medical History / Comment(s): SMOKER. General Exam Limitations: no limitations Course Vital Signs 01/15/23 01/15/23 01/15/23 05:13 06:51 09:00 Temperature 98 F Pulse Rate 100 100 98 Respiratory 16 16 16 Rate Blood Pressure 144/89 140/87 134/80 O2 Sat by Pulse 98 95 96 Oximetry 01/15/23 01/15/23 01/15/23 10:00 12:00 13:00 Temperature Pulse Rate 99 86 84 Respiratory 18 22 18 Rate Blood Pressure 154/93 130/86 133/90 O2 Sat by Pulse 97 94 L 95 Oximetry 01/15/23 14:35 Temperature Pulse Rate 82 Respiratory 20 Rate Blood Pressure 132/81 O2 Sat by Pulse 97 Oximetry Medical Decision Making - Lab Data Result diagrams: 01/15/23 05:33 01/15/23 05:33 Lab Results 01/15/23 01/15/23 01/15/23 Range/Units 05:33 05:33 05:33 WBC 10.0 (3.8-10.6) k/uL RBC 6.24 H (4.30-5.90) m/uL Hgb 17.2 (13.0-17.5) gm/dL Hct 54.8 H (39.0-53.0) % MCV 87.8 (80.0-100.0) fL MCH 27.5 (25.0-35.0) pg MCHC 31.4 (31.0-37.0) g/dL RDW 15.0 (11.5-15.5) % Plt Count 194 (150-450) k/uL MPV 9.6 Neutrophils % 90 % Lymphocytes % 4 % Monocytes % 4 % Eosinophils % 1 % Basophils % 0 % Neutrophils # 9.0 H (1.3-7.7) k/uL Lymphocytes # 0.4 L (1.0-4.8) k/uL Monocytes # 0.4 (0-1.0) k/uL Eosinophils # 0.1 (0-0.7) k/uL Basophils # 0.0 (0-0.2) k/uL PT 10.6 (9.0-12.0) sec INR 1.0 (<1.2) APTT 23.9 (22.0-30.0) sec Sodium 138 (137-145) mmol/L Potassium 3.9 (3.5-5.1) mmol/L Chloride 104 (98-107) mmol/L Carbon Dioxide 23 (22-30) mmol/L Anion Gap 11 mmol/L BUN 13 (9-20) mg/dL Creatinine 0.94 (0.66-1.25) mg/dL Est GFR (CKD-EPI)AfAm >90 (>60 ml/min/1.73 sqM) Est GFR (CKD-EPI)NonAf >90 (>60 ml/min/1.73 sqM) Glucose 176 H (74-99) mg/dL Plasma Lactic Acid Roshan (0.7-2.0) mmol/L Calcium 9.2 (8.4-10.2) mg/dL Magnesium 2.0 (1.6-2.3) mg/dL Total Bilirubin 0.4 (0.2-1.3) mg/dL AST 23 (17-59) U/L ALT 25 (4-49) U/L Alkaline Phosphatase 59 (38-126) U/L Troponin I (0.000-0.034) ng/mL Total Protein 7.4 (6.3-8.2) g/dL Albumin 4.2 (3.5-5.0) g/dL Influenza Type A (PCR) (Not Detectd) Influenza Type B (PCR) (Not Detectd) RSV (PCR) (Not Detectd) SARS-CoV-2 (PCR) (Not Detectd) Group A Strep (PCR) (Not Detectd) 01/15/23 01/15/23 01/15/23 Range/Units 05:33 05:33 05:50 WBC (3.8-10.6) k/uL RBC (4.30-5.90) m/uL Hgb (13.0-17.5) gm/dL Hct (39.0-53.0) % MCV (80.0-100.0) fL MCH (25.0-35.0) pg MCHC (31.0-37.0) g/dL RDW (11.5-15.5) % Plt Count (150-450) k/uL MPV Neutrophils % % Lymphocytes % % Monocytes % % Eosinophils % % Basophils % % Neutrophils # (1.3-7.7) k/uL Lymphocytes # (1.0-4.8) k/uL Monocytes # (0-1.0) k/uL Eosinophils # (0-0.7) k/uL Basophils # (0-0.2) k/uL PT (9.0-12.0) sec INR (<1.2) APTT (22.0-30.0) sec Sodium (137-145) mmol/L Potassium (3.5-5.1) mmol/L Chloride (98-107) mmol/L Carbon Dioxide (22-30) mmol/L Anion Gap mmol/L BUN (9-20) mg/dL Creatinine (0.66-1.25) mg/dL Est GFR (CKD-EPI)AfAm (>60 ml/min/1.73 sqM) Est GFR (CKD-EPI)NonAf (>60 ml/min/1.73 sqM) Glucose (74-99) mg/dL Plasma Lactic Acid Roshan 1.9 (0.7-2.0) mmol/L Calcium (8.4-10.2) mg/dL Magnesium (1.6-2.3) mg/dL Total Bilirubin (0.2-1.3) mg/dL AST (17-59) U/L ALT (4-49) U/L Alkaline Phosphatase (38-126) U/L Troponin I 0.017 (0.000-0.034) ng/mL Total Protein (6.3-8.2) g/dL Albumin (3.5-5.0) g/dL Influenza Type A (PCR) (Not Detectd) Influenza Type B (PCR) (Not Detectd) RSV (PCR) (Not Detectd) SARS-CoV-2 (PCR) (Not Detectd) Group A Strep (PCR) NOT DETECTED (Not Detectd) 01/15/23 Range/Units 05:50 WBC (3.8-10.6) k/uL RBC (4.30-5.90) m/uL Hgb (13.0-17.5) gm/dL Hct (39.0-53.0) % MCV (80.0-100.0) fL MCH (25.0-35.0) pg MCHC (31.0-37.0) g/dL RDW (11.5-15.5) % Plt Count (150-450) k/uL MPV Neutrophils % % Lymphocytes % % Monocytes % % Eosinophils % % Basophils % % Neutrophils # (1.3-7.7) k/uL Lymphocytes # (1.0-4.8) k/uL Monocytes # (0-1.0) k/uL Eosinophils # (0-0.7) k/uL Basophils # (0-0.2) k/uL PT (9.0-12.0) sec INR (<1.2) APTT (22.0-30.0) sec Sodium (137-145) mmol/L Potassium (3.5-5.1) mmol/L Chloride (98-107) mmol/L Carbon Dioxide (22-30) mmol/L Anion Gap mmol/L BUN (9-20) mg/dL Creatinine (0.66-1.25) mg/dL Est GFR (CKD-EPI)AfAm (>60 ml/min/1.73 sqM) Est GFR (CKD-EPI)NonAf (>60 ml/min/1.73 sqM) Glucose (74-99) mg/dL Plasma Lactic Acid Roshan (0.7-2.0) mmol/L Calcium (8.4-10.2) mg/dL Magnesium (1.6-2.3) mg/dL Total Bilirubin (0.2-1.3) mg/dL AST (17-59) U/L ALT (4-49) U/L Alkaline Phosphatase (38-126) U/L Troponin I (0.000-0.034) ng/mL Total Protein (6.3-8.2) g/dL Albumin (3.5-5.0) g/dL Influenza Type A (PCR) Not Detected (Not Detectd) Influenza Type B (PCR) Not Detected (Not Detectd) RSV (PCR) Not Detected (Not Detectd) SARS-CoV-2 (PCR) Not Detected (Not Detectd) Group A Strep (PCR) (Not Detectd) Disposition Clinical Impression: Chest pain Disposition: ADMITTED IP TO THIS HOSP Condition: Fair Decision Time: 07:15
[2023-01-15 06:14] LABS: Partial Thromboplastin Time 23.9 sec (22.0-30.0); Prothrombin Time 10.6 sec (9.0-12.0)
[2023-01-15 06:23] LABS: Basophils % (A) 0 %; Eosinophils # (A) 0.1 k/uL (0-0.7); Eosinophils % (A) 1 %; HCT 54.8 % (39.0-53.0); HGB 17.2 gm/dL (13.0-17.5); Lymphocytes # (A) 0.4 k/uL (1.0-4.8); Lymphocytes % (A) 4 %; MCH 27.5 pg (25.0-35.0); MCHC 31.4 g/dL (31.0-37.0); MCV 87.8 fL (80.0-100.0); Mean Platelet Volume 9.6; Monocytes # (A) 0.4 k/uL (0-1.0); Monocytes % (A) 4 %; Neutrophils % (A) 90 %; Platelet Count 194 k/uL (150-450); RBC 6.24 m/uL (4.30-5.90)
[2023-01-15 06:30] LABS: ALT 25 U/L (4-49); AST 23 U/L (17-59); African American GFR (CKD) >90 (>60 ml/min/1.73 sqM); Albumin 4.2 g/dL (3.5-5.0); Alkaline Phosphatase 59 U/L (38-126); Anion Gap 11 mmol/L; Blood Urea Nitrogen 13 mg/dL (9-20); Calcium 9.2 mg/dL (8.4-10.2); Carbon Dioxide 23 mmol/L (22-30); Chloride 104 mmol/L (98-107); Glucose 176 mg/dL (74-99); Non-African American GFR(CKD) >90 (>60 ml/min/1.73 sqM); Potassium 3.9 mmol/L (3.5-5.1); Sodium 138 mmol/L (137-145); Total Bilirubin 0.4 mg/dL (0.2-1.3); Total Protein 7.4 g/dL (6.3-8.2)
--- NOTE | 2023-01-15 06:39 | XR ---
EXAMINATION TYPE: XR chest 2V DATE OF EXAM: 01/15/2023 COMPARISON: Chest x-ray Sher[facility] 07/01/2019 HISTORY: Lower extremity weakness and cough. TECHNIQUE: Frontal and lateral views of the chest are obtained. FINDINGS: There is no suspicious new focal air space opacity, pleural effusion, or pneumothorax seen . Low lung volumes are present. Mild cardiomegaly remains present . The osseous structures are inta ct. Cholecystectomy clips are redemonstrated on lateral view. IMPRESSION: Mild cardiomegaly without acute pulmonary infiltrate.
[2023-01-15] MEDS ORDERED: ASPIRIN 81 MG PO STA (07:14)
[2023-01-15] MEDS ORDERED: NITROGLYCERIN SL TABS 0.4 MG TAB SUBLINGUAL PRN (07:14)
[2023-01-15] MEDS: oxyCODONE-APAP 5-325MG 1 EACH TAB PO SCH (10:11)
[2023-01-15] MEDS ORDERED: methylPREDNISolone SOD SUCCI 125 MG/2 ML VIAL IV STA (10:21)
[2023-01-15 11:31] LABS: Creatine Kinase 73 U/L (55-170)
[2023-01-15 12:21] LABS: C Reactive Protein <0.5 mg/dL (<1.0)
[2023-01-15] MEDS ORDERED: ACETAMINOPHEN TAB 325 MG TAB PO PRN (18:21)
--- NOTE | 2023-01-15 19:19 | P.HPIM ---
History of Present Illness H&P Date: 01/15/23 Chief Complaint: Increased weakness and pain in all 4 extremities This is a 43-year-old gentleman with history of recently diagnosed bronchitis,chronic back pain with multiple procedures with [facility] pain management services-most recently , gastroesophageal reflux disease, hypertension, hypothyroidism, renal calculi, cholecystectomy, appendectomy, umbilical hernia, presented to the ER with increased pain and severe weakness of all 4 extremities that initially started early this morning around 4 AM with bilateral lower extremities significantly weaker than his upper extremities. Reports muscle and joint pain of all extremities. Stated he had to crawl to get into his car, unable to walk. Yesterday he went to PCPs office,diagnosed with bronchitis, prescribed prednisone taper, Z-Mike and baclofen. Denies fever or chills. Occasional productive cough. Reports he also had chest pain this morning that radiated down his left arm, history of heart attack. Denies nausea vomiting or diarrhea. Denies abdominal pain. Reports his chest pain has subsided. PCP reporting recent cardiac workup in [place]. Denies diaphoresis, shortness of breath. Denies syncope. Denies fall, traumatic event. EKG reporting sinus tachycardia, possible right ventricular hypertrophy. Troponin 0.017, 0.021, 0.030. Cardiology consult in place. Chest x-ray reportedly mild cardiomegaly without acute pulmonary infiltrate. Afebrile normal WBC. Hemoglobin 17.2, platelets 194, INR 1, chemistry panel unremarkable. Serology negative for influenza type a, type B, RSV, drummond virus, group A strep. Review of Systems ROS Statement: Those systems with pertinent positive or pertinent negative responses have been documented in the HPI. ROS Other: All systems not noted in ROS Statement are negative. Past Medical History Past Medical History: Hypertension, Thyroid Disorder Additional Past Medical History / Comment(s): severe headache,HX KIDNEY STONE, CHRONIC BACK PAIN, LOW THYROID, UMBILICAL HERNIA.back pain, had covid 08/25/21 and March 2022 History of Any Multi-Drug Resistant Organisms: None Reported Past Surgical History: No Surgical Hx Reported Additional Past Surgical History / Comment(s): PAIN PROCEDURES, multiple kidney stone removals, secondary polycythemia Past Anesthesia/Blood Transfusion Reactions: No Reported Reaction Additional Past Anesthesia/Blood Transfusion Reaction / Comment(s): States needs more sedation to put me asleep. Past Psychological History: No Psychological Hx Reported Smoking Status: Never smoker - Past Family History Mother History Unknown: Yes Family Medical History: Dementia Father Additional Family Medical History / Comment(s): SMOKER. Medications and Allergies Home Medications Medication Instructions Recorded Confirmed Type Testosterone Cypionate 200 mg IM Q72H 01/26/19 01/15/23 History [Depo-Testosterone] Baclofen 10 mg PO TID 30 Days #90 tab 09/15/22 01/15/23 Rx Azithromycin [Zithromax Z Pack] See Taper PO DAILY 01/15/23 01/15/23 History Sildenafil Citrate 25 mg PO DAILY PRN 01/15/23 01/15/23 History oxyCODONE HCL/ACETAMINOPHEN 2 tab PO DAILY 01/15/23 01/15/23 History [Percocet 5-325 mg] oxyCODONE-APAP 5-325MG [Percocet 1 - 2 tab PO DAILY PRN 01/15/23 01/15/23 History 5-325 mg] predniSONE See Taper PO DAILY 01/15/23 01/15/23 History Allergies Allergy/AdvReac Type Severity Reaction Status Date / Time benzalkonium chloride Allergy Severe Swelling Verified 01/15/23 08:19 oxycodone Allergy Itching, Verified 01/15/23 09:40 still taking percocet at home duloxetine HCl AdvReac Severe severe Verified 01/15/23 08:19 [From Cymbalta] headache gabapentin [From Neurontin] AdvReac HEADACHE Verified 01/15/23 08:19 Physical Exam Vitals: Vital Signs Temp Pulse Resp BP Pulse Ox 01/15/23 14:35 82 20 132/81 97 01/15/23 13:00 84 18 133/90 95 01/15/23 12:00 86 22 130/86 94 L 01/15/23 10:00 99 18 154/93 97 01/15/23 09:00 98 16 134/80 96 01/15/23 06:51 100 16 140/87 95 01/15/23 05:13 98 F 100 16 144/89 98 Intake and Output 01/14/23 01/15/23 01/15/23 22:59 06:59 14:59 Other: Weight 117.934 kg VITAL SIGNS: As above GENERAL: Sitting up in bed, no acute distress, no conversational dyspnea HEENT: Normocephalic, atraumatic ,Conjunctivae normal. eyes normal. NECK: Supple, No JVD. No thyroid enlargement. No LNs CARDIOVASCULAR: S1, S2 muffled. No murmur RESPIRATION: Unlabored, equal air entry ,Breath sounds clear. No rhonchi or crackles. No bronchial breathing. ABDOMEN: Soft, nondistended, nontender, no palpable mass, umbilical hernia, No guardiing.Bowel sounds heard. LEGS: No edema. no swelling PSYCHIATRY: Alert and oriented -3, mood and affect normal. NERVOUS SYSTEM: Cranial N 2-12 grossly normal. Moves all 4 limbs. Generalized weakness,No focal deficits. Skin: Warm and dry, no rash Results CBC & Chem 7: 01/15/23 05:33 04 05:33 Labs: Abnormal Lab Results - Last 24 Hours (Table) 01/15/23 01/15/23 Range/Units 05:33 05:33 RBC 6.24 H (4.30-5.90) m/uL Hct 54.8 H (39.0-53.0) % Neutrophils # 9.0 H (1.3-7.7) k/uL Lymphocytes # 0.4 L (1.0-4.8) k/uL Glucose 176 H (74-99) mg/dL Assessment and Plan Assessment: -Chest pain, diagnosed with bronchitis yesterday at PCPs office, prednisone taper, Z-Mike and baclofen prescribed. -Increased weakness and pain in of all 4 extremities,lower extremities' weakness greater than upper extremities' with gait dysfunction, in a patient with multiple treatments with pain management services ,etiology unclear, possible neuritis, neurology consulted. -Recent bilateral L4-5 radiofrequency thermal coagulation of medial branch, dorsal ramus with [facility] pain management services on 09/26/2022 -History of covid infection, 08/25/2021 and March 2022 -History of renal calculi -Hypertension -Chronic back pain -Gastroesophageal reflux disease -History of polycythemia vera -Hypothyroidism Plan: Continue on current medication regime ,monitoring and symptomatic treatment. Stat CK, ESR, CRP. Solu-Medrol 60 mg IV push 1. Neurology consulted. Cardiology consult in place, recommendations pending. The impression and plan of care has been dictated as directed. : I performed a history and examination of this patient, discussed the same with the dictator. I agree with the dictator's note ,documented as a scribe. Any additional findings or plans will be noted.
--- NOTE | 2023-01-15 19:59 | P.CNNES ---
History of Present Illness Consult date: 01/15/23 Requesting physician: Jurgen Quick Reason for Consult: Extremity weakness X4, greatest in lower extr. History of Present Illness: Patient is a 43-year-old right-handed male came to the hospital today at 5:11 AM for acute onset of muscle pain and lower extremity weakness. patient states that yesterday he felt that he was suffering from bronchitis. He spoke to his primary physician, who gave him prescription of prednisone and a Z-Mike. He went home. He took the medications prescribed. At 4 AM this morning he woke up and he could not move his leg. It was hurting so bad that he could not put weight on his legs. He managed to crawl to the bathroom, crawled down stairs and outside to the track and drove himself to the hospital. Patient states that even moving his foot from the gas to the brakes would hurt him severely in the legs. He was feeling pain in the arms which he believes is from dragging himse lf on the floor but is not as severe as the legs. He feels like his muscles are tearing apart. Even at this time, patient states that he cannot get up to go to the bathroom. He has to slide his legs and has difficulty scooting himself to the wheelchair. He still feels an "major pain". He feels as if his quadriceps muscles are tearing apart or ripping. All joints are hurting specially his hips and knees. Has some pain in the calves but not much in the hamstrings. Denies any pain or numbness involving his trunk region or problem with bowel or bladder control. He has little tingling in the feet, but he still can feel everything. Patient says that he did suffer from strep throat 4 weeks ago. Patient states that at present he has a constant pain in the quadriceps muscles from growing up to above the knees which he rates 3-4/10. With any movement it goes up to 8/10 instantly mainly in the legs. Patient states that he had similar episodes twice in the past. One of them was 9 months ago and a 1 prior was 2 years ago. Each of them lasted for about one or 2 hours and then went away. He believes that each of those episodes occurred about 48 hours after he underwent ablation of the nerves in the back, therefore he blamed it on it. He would go to sleep and wake up fine. As symptoms did not persist, he did not seek medical attention. This is the first time that symptoms are persisting so long. Patient states that since he suffered from Covid 2 years ago, he has been having major headaches involving back of the head in which his back of the head swells up. He gets injections and it helps. Patient has history of chronic intermittent back pain, for which he undergoes posterior rhizotomy by pain management almost twice a year, which he has been getting for last 8 years. Once he gets rhizotomy, he can function for 6 months, otherwise he could not. He says that he has been hospitalized about 10 times in the last 2 years for these injections. Vital signs arrival blood pressure 144/89, pulse rate 100 temperature 98.0. Blood test shows normal CBC, PT/PTT, normal CMP, normal troponin, CRP is 0.5 and ESR 2. Influenza, RSV and coronal virus PCR negative. Group A strep PCR negative. CK is normal 73. EKG shows sinus tachycardia. Chest x-ray showed mild cardiomegaly without acute pulmonary infiltrate. Patient denies any tobacco, alcohol use or any drug use. Patient's home medication includes testosterone, baclofen 10 mg 3 times a day, oxycodone/Percoc et 5/325, prednisone, Zithromax, sildenafil 25 mg when necessary. Patient says that he has 3 first cousins, who have been diagnosed with MS. He states that he has some fluid around his heart noted on the echo. Review of Systems Constitutional: Denies chills, Denies fever Eyes: denies blurred vision, denies pain Ears, nose, mouth and throat: Reports headache, Denies sore throat Cardiovascular: Denies chest pain, Denies shortness of breath Respiratory: Denies cough, Denies excessive sputum Gastrointestinal: Denies abdominal pain, Denies diarrhea, Denies nausea, Denies vomiting Musculoskeletal: Reports muscle weakness, Reports myalgias, Denies arm numbness/tingling Integumentary: Denies pruritus, Denies rash Neurological: Reports as per HPI Psychiatric: Denies anxiety, Denies depression Endocrine: Denies fatigue, Denies weight change Past Medical History Past Medical History: Hypertension, Thyroid Disorder Additional Past Medical History / Comment(s): severe headache,HX KIDNEY STONE, CHRONIC BACK PAIN, LOW THYROID, UMBILICAL HERNIA.back pain, had covid 08/25/21 and March 2022 History of Any Multi-Drug Resistant Organisms: None Reported Past Surgical History: No Surgical Hx Reported Additional Past Surgical History / Comment(s): PAIN PROCEDURES, multiple kidney stone removals, secondary polycythemia Past Anesthesia/Blood Transfusion Reactions: No Reported Reaction Additional Past Anesthesia/Blood Transfusion Reaction / Comment(s): States needs more sedation to put me asleep. Past Psychological History: No Psychological Hx Reported Smoking Status: Never smoker - Past Family History Mother History Unknown: Yes Family Medical History: Dementia Father Additional Family Medical History / Comment(s): SMOKER. Medications and Allergies Home Medications Medication Instructions Recorded Confirmed Type Testosterone Cypionate 200 mg IM Q72H 01/26/19 01/15/23 History [Depo-Testosterone] Baclofen 10 mg PO TID 30 Days #90 tab 09/15/22 01/15/23 Rx Azithromycin [Zithromax Z Pack] See Taper PO DAILY 01/15/23 01/15/23 History Sildenafil Citrate 25 mg PO DAILY PRN 01/15/23 01/15/23 History oxyCODONE HCL/ACETAMINOPHEN 2 tab PO DAILY 01/15/23 01/15/23 History [Percocet 5-325 mg] oxyCODONE-APAP 5-325MG [Percocet 1 - 2 tab PO DAILY PRN 01/15/23 01/15/23 History 5-325 mg] predniSONE See Taper PO DAILY 01/15/23 01/15/23 History Allergies Allergy/AdvReac Type Severity Reaction Status Date / Time benzalkonium chloride Allergy Severe Swelling Verified 01/15/23 08:19 oxycodone Allergy Itching, Verified 01/15/23 09:40 still taking percocet at home duloxetine HCl AdvReac Severe severe Verified 01/15/23 08:19 [From Cymbalta] headache gabapentin [From Neurontin] AdvReac HEADACHE Verified 01/15/23 08:19 Physical Examination - Vital Signs Vital Signs: Vital Signs Temp Pulse Resp BP Pulse Ox 01/15/23 13:00 84 18 133/90 95 01/15/23 12:00 86 22 130/86 94 L 01/15/23 10:00 99 18 154/93 97 01/15/23 09:00 98 16 134/80 96 01/15/23 06:51 100 16 140/87 95 01/15/23 05:13 98 F 100 16 144/89 98 Intake and Output 01/14/23 01/15/23 01/15/23 22:59 06:59 14:59 Other: Weight 117.934 kg Patient is a middle aged male, very pleasant, in no acute distress. Patient is alert awake oriented to time place and person. Speech and language functions are normal. Patient can name and repeat very well. No aphasia or dysarthria. Attention, concentration and fund of knowledge is adequate. On cranial nerve examination, pupils are equal, round and reacting to light, visual jaquez are full on confrontation, with no neglect on double simultaneous stimulation.. Extraocular muscles are intact with no nystagmus. Face is symmet raudel, tongue protrudes to the midline. Palatal elevation and sensation normal, hearing and shoulder shrug normal, facial sensation normal. On muscle strength testing, there is no pronator drift and the strength is normal in arms and legs distally and proximally, except for some pain related give way weakness with hip flexion, knee extension and adduction. Deep tendon reflexes are symmetric biceps 1, brachioradialis 1+, knees trace to 1, ankles 1+ and plantars are downgoing bilaterally. Sensory to touch is equal with no neglect on double simultaneous stimulation. There is no sensory level on the trunk. Cerebellar function showed no ataxia for [id number] testing. No dysdiadochokinesia. Difficulty with performing [id number] testing because of pain. Tone and bulk of muscles normal. Gait deferred.. On general examination, there is no carotid bruit or murmur, S1-S2 audible. Chest is clear on consultation. Abdomen is soft nontender. No organomegaly, bowel sounds present. Peripheral pulses are present. No edema. Results - Laboratory Findings CBC and BMP: 01/15/23 05:33 01/15/23 05:33 Abnormal Lab Findings: Abnormal Labs 01/15/23 01/15/23 05:33 05:33 RBC 6.24 H Hct 54.8 H Neutrophils # 9.0 H Lymphocytes # 0.4 L Glucose 176 H Assessment and Plan Assessment: * Acute onset of tearing/splitting pain in the muscles particularly in the thighs and some in the calves, unclear etiology. Symptoms suggestive of mild possible neuritis versus periodic paralysis. No evidence of rhabdomyolysis, as CK is normal. Patient had 2 similar episodes in the past couple years, that lasted for 2 hours and then went away on its own. Exact cause is uncertain. Exam is essentially normal except for some give way weakness in the legs from pain. Uncertain if symptoms related to steroids. Patient's potassium is normal. * Hypertension * Thyroid disorder. Plan: * We will check blood tests including TSH, B12, folate, MMA, B6, B12, Lyme titer, hemoglobin A1c and lipid panel. * Patient's CK is normal. * Patient's neurological examination is essentially normal. We will observe overnight, as previously symptoms resolved on its own. * We will follow clinically. * Thank you for the consult.
[2023-01-15] MEDS: PANTOPRAZOLE 40 MG/10 ML VIAL IVP SCH (21:09)
[2023-01-15] MEDS ORDERED: BUTALB/APAP/CAFF 50-325-40MG TAB PO PRN ×2 (21:34→21:43)
[2023-01-15] MEDS: BUTALB/APAP/CAFF 50-325-40MG TAB PO PRN (21:54)
[2023-01-16] MEDS: BUTALB/APAP/CAFF 50-325-40MG TAB PO PRN ×2 (04:50→11:51)
[2023-01-16] MEDS ORDERED: SODIUM CHLORIDE 0.9% 1,000 ML IV SCH (07:30)
[2023-01-16 07:40] VITALS: BP 125/77; PULSE 82; RESP 18; TEMP 98
[2023-01-16] MEDS: PANTOPRAZOLE 40 MG/10 ML VIAL IVP SCH (08:51)
[2023-01-16] MEDS: oxyCODONE-APAP 5-325MG 1 EACH TAB PO SCH (08:51)
[2023-01-16 08:57] LABS: Chol/HDL Ratio 4.77 Ratio; LDL Cholesterol,Calculated 125.5 mg/dL (0.0-131.0); VLDL Calculation 14.42 mg/dL (5.00-40.00)
--- NOTE | 2023-01-16 09:46 | P.CRDCN ---
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 He has a past medical history of chronic pain with multiple back procedures, hypertension, history of hypothyroidism. Patient came into the hospital due to weakness in all extremities to the point that he had difficulty walking. He also had left arm and left-sided chest pain. He has been coming and going. He states a little lightheadedness. He has no chest pain at the time of evaluation. He also states he was recently treated for a strep infection on antibiotics and steroids. He states he is still feeling sore. There is no but he tries to describe that he had such weakness he was not able to get out to his car. He states he was not able to walk. He is feeling better now. EKG sinus rhythm with no acute ST changes. Chest x-ray: Mild cardiomegaly without acute infiltrate WBC 10, hemoglobin 17.2, platelet count 194. INR 1. Electrolytes, renal function, liver function all within normal limits. Troponin negative 3. C- reactive protein less than 0.5. CK 73. Blood sugar 176. Influenza A, influenza B, RSV, Covid 19 and group A strep not detected. Triglycerides 72, cholesterol 177, LDL 125, HDL 37. Hemoglobin A1c 5.4. Home cardiac medications: Review Of Systems: At the time of my evaluation: Constitutional: No fever, no chills. Reports generalized weakness. EENT: No headache. No dizziness. Lungs: No shortness of breath, cough, no sputum production. No wheezing. Cardiovascular: No chest pain, no lower extremity edema. No palpitations. No paroxysmal nocturnal dyspnea. No orthopnea. No lightheadedness or dizziness. No syncopal episodes. Abdominal: No abdominal pain. No nausea, vomiting. No diarrhea. No constipation. No bloody or tarry stools. Genitourinary: No dysuria.. No urinary retention. Musculoskeletal: No myalgias. No muscle weakness, no frequent falls. No back pain. No neck pain. Integumentary: No wounds. No rash. No unusual bruising. Neurologic: No aphasia. No facial droop. No change in mentation. No head injury. No headache. Physical examination: Gen: This is a 43-year-old male. He is resting but appears to be comfortable. VS: reviewed HEENT: Head is atraumatic, normocephalic. Pupils equal, round. Sclerae is anicteric. NECK: Supple. No JVD. . LUNGS: Clear to auscultation. No wheezes or rhonchi. No intercostal retractions. HEART: Regular rate and rhythm. No murmur. ABDOMEN: Soft No tenderness. EXTREMITIES: No pedal edema. No calf tenderness. NEUROLOGICAL: Patient is awake, alert and oriented x3. Assessment: Generalized weakness Chest pain, acute coronary syndrome ruled out Chronic pain Hypertension Strep infection Plan: Obtain 2-D echocardiogram and Doppler study to assess cardiac structure and function Patient may follow-up in the office in 2 weeks for outpatient stress testing once his strep infection is completely resolved. Thank you kindly for this consultation. Nurse practitioner note has been reviewed, I agree with documented findings and plan of care. Patient was seen and examined. Past Medical History Past Medical History: Hypertension, Thyroid Disorder Additional Past Medical History / Comment(s): severe headache,HX KIDNEY STONE, CHRONIC BACK PAIN, LOW THYROID, UMBILICAL HERNIA.back pain, had covid 08/25/21 and March 2022 History of Any Multi-Drug Resistant Organisms: None Reported Past Surgical History: No Surgical Hx Reported Additional Past Surgical History / Comment(s): PAIN PROCEDURES, multiple kidney stone removals, secondary polycythemia Past Anesthesia/Blood Transfusion Reactions: No Reported Reaction Additional Past Anesthesia/Blood Transfusion Reaction / Comment(s): States needs more sedation to put me asleep. Past Psychological History: No Psychological Hx Reported Smoking Status: Never smoker - Past Family History Mother History Unknown: Yes Family Medical History: Dementia Father Additional Family Medical History / Comment(s): SMOKER. Medications and Allergies Home Medications Medication Instructions Recorded Confirmed Type Testosterone Cypionate 200 mg IM Q72H 01/26/19 01/15/23 History [Depo-Testosterone] Baclofen 10 mg PO TID 30 Days #90 tab 09/15/22 01/15/23 Rx Azithromycin [Zithromax Z Pack] See Taper PO DAILY 01/15/23 01/15/23 History Sildenafil Citrate 25 mg PO DAILY PRN 01/15/23 01/15/23 History oxyCODONE HCL/ACETAMINOPHEN 2 tab PO DAILY 01/15/23 01/15/23 History [Percocet 5-325 mg] oxyCODONE-APAP 5-325MG [Percocet 1 - 2 tab PO DAILY PRN 01/15/23 01/15/23 History 5-325 mg] predniSONE See Taper PO DAILY 01/15/23 01/15/23 History Allergies Allergy/AdvReac Type Severity Reaction Status Date / Time benzalkonium chloride Allergy Severe Swelling Verified 01/15/23 08:19 oxycodone Allergy Itching, Verified 01/15/23 09:40 still taking percocet at home duloxetine HCl AdvReac Severe severe Verified 01/15/23 08:19 [From Cymbalta] headache gabapentin [From Neurontin] AdvReac HEADACHE Verified 01/15/23 08:19 Physical Exam Vitals: Vital Signs Temp Pulse Pulse Resp BP BP Pulse Ox 01/16/23 07:30 98.0 F 82 18 125/77 94 L 01/16/23 01:33 20 01/16/23 01:00 97.9 F 90 18 116/71 94 L 01/15/23 20:00 20 01/15/23 19:19 98.1 F 101 H 20 146/78 93 L 01/15/23 15:49 106 H 01/15/23 15:08 98.1 F 80 18 160/81 95 01/15/23 14:35 82 20 132/81 97 01/15/23 13:00 84 18 133/90 95 01/15/23 12:00 86 22 130/86 94 L 01/15/23 10:00 99 18 154/93 97 Intake and Output 01/15/23 01/16/23 01/16/23 22:59 06:59 14:59 Intake Total 118 Output Total 400 Balance 118 -400 Intake: Oral 118 Output: Urine 400 Other: Voiding Method Bedside Commode # Voids 1 Weight 117.934 kg Results 01/15/23 05:33 01/15/23 05:33 Cardiac Enzymes 01/15/23 01/15/23 Range/Units 08:24 10:51 Troponin I 0.021 0.030 (0.000-0.034) ng/mL Lipids 01/16/23 Range/Units 05:06 Triglycerides 72.10 (0.00-149.00) mg/dL Cholesterol 177.00 (0.00-200.00) mg/dL HDL Cholesterol 37.10 L (40.00-60.00) mg/dL Cholesterol/HDL Ratio 4.77 Ratio Current Medications Generic Name Dose Route Start Last Admin Trade Name Freq PRN Reason Stop Dose Admin Acetaminophen 650 mg 01/15/23 18:21 Acetaminophen Tab 325 Mg Tab PO Q6HR PRN Fever and/ or Pain Acetaminophen/Butalbital/Caffeine 2 each 01/15/23 21:45 01/16/23 04:50 Butalb/Apap/Caff 50-325-40mg Tab PO 2 each Q6H PRN Administration PAIN SCALE OF 6-10 Acetaminophen/Butalbital/Caffeine 1 each 01/15/23 21:43 Butalb/Apap/Caff 50-325-40mg Tab PO Q6HR PRN Headache (PAIN SCALE 1-5) Sodium Chloride 1,000 mls @ 75 mls/hr 01/16/23 07:30 01/16/23 08:52 Saline 0.9% IV 75 mls/hr .[id number] PANKAJ Administration Nitroglycerin 0.4 mg 01/15/23 07:14 Nitroglycerin Sl Tabs 0.4 Mg Tab SUBLINGUAL Q5M PRN Chest Pain Oxycodone/Acetaminophen 2 each 01/15/23 09:00 01/16/23 08:51 Oxycodone-Apap 5-325mg 1 Each Tab PO 2 each DAILY PANKAJ Administration Pantoprazole Sodium 40 mg 01/15/23 18:45 01/16/23 08:51 Pantoprazole 40 Mg/10 Ml Vial IVP 40 mg DAILY PANKAJ Administration Intake and Output 01/15/23 01/16/23 01/16/23 22:59 06:59 14:59 Intake Total 118 Output Total 400 Balance 118 -400 Intake: Oral 118 Output: Urine 400 Other: Voiding Method Bedside Commode # Voids 1 Weight 117.934 kg 01/15/23 05:33 01/15/23 05:33
[2023-01-16 09:59] LABS: Lyme IgG/IgM 0.13 Index
--- NOTE | 2023-01-16 10:50 | CA ---
Transthoracic Echo Report Name: Froilan Crowder Age: 43 Gender: M : 1980 Exam Date: 01/16/2023 07:56 Exam Location: [place] Ht (in): 72 Wt (lb): 260 Ordering Physician: Bea Fernandez Attending/Referring Phys: [id number], Rebecca Piecer Jaimie Desai, BURKE Procedure CPT: Indications: LVF Cardiac Hx: Technical Quality: Fair Contrast 1: Total Dose (mL): Contrast 2: Total Dose (mL): MEASUREMENTS (Male / Female) Normal Values 2D ECHO LV Diastolic Diameter PLAX 5.2 cm 4.2 - 5.9 / 3.9 - 5.3 cm LV Systolic Diameter PLAX 3.4 cm IVS Diastolic Thickness 1.4 cm 0.6 - 1.0 / 0.6 - 0.9 cm LVPW Diastolic Thickness 1.5 cm 0.6 - 1.0 / 0.6 - 0.9 cm LV Relative Wall Thickness 0.6 RV Internal Dim ED PLAX 3.4 cm LA Volume 44.6 cm??? 18 - 58 / 22 - 52 cm??? M-MODE Aortic Root Diameter MM 3.0 cm AV Cusp Separation MM 1.6 cm DOPPLER AV Peak Velocity 202.6 cm/s AV Peak Gradient 16.4 mmHg LVOT Peak Velocity 135.4 cm/s LVOT Peak Gradient 7.3 mmHg MV Area PHT 6.2 cm??? Mitral E Point Velocity 109.5 cm/s Mitral A Point Velocity 117.7 cm/s Mitral E to A Ratio 0.9 MV Deceleration Time 122.2 ms PV Peak Velocity 98.0 cm/s PV Peak Gradient 3.8 mmHg FINDINGS Left Ventricle Mildly increased septal wall thickness. Left ventricular cavity size normal. Left ventricular ejection fraction is estimated at 55-60 %. Right Ventricle Normal right ventricular size. Normal right ventricular global systolic function. Right ventricular systolic pressure within normal limits. Right Atrium Normal right atrial size. Left Atrium Normal left atrial size. Mitral Valve Structurally normal mitral valve. No mitral regurgitation. No mitral stenosis. Aortic Valve Trileaflet aortic valve. Tricuspid Valve Structurally normal tricuspid valve. No tricuspid regurgitation. Pulmonic Valve Structurally normal pulmonic valve. No pulmonic regurgitation. Pericardium No pericardial effusion. No pleural effusion. Aorta Normal size aortic root and proximal ascending aorta. CONCLUSIONS Normal LV size and systolic function. No significant abnormality in the Doppler exam. No pericardial effusion. Slightly elevated right-sided pressures Previewed by: Dr. Genia García MD (Electronically Signed) Final Date: 16 January 2023 10:49
--- NOTE | 2023-01-16 11:12 | P.DS ---
Providers Date of admission: 01/15/23 07:14 Expected date of discharge: 01/16/23 Attending physician: Dalton Jett Consults: 01/15/23 10:20 Consult Physician Routine Consulting Provider: Umer Mayes Consult Reason/Comments: Extremity weakness X4, greatest in lower extr. Do you want consulting provider notified?: Yes 01/15/23 16:32 Consult Physician Routine Consulting Provider: Genia García Consult Reason/Comments: chest pain Do you want consulting provider notified?: Yes Primary care physician: [facility] Course: Final Diagnoses: -Chest pain, acute coronary syndrome ruled out, diagnosed with bronchitis yesterday at PCPs office, prednisone taper, Z-Mike and baclofen prescribed. -Increased weakness and pain in of all 4 extremities,lower extremities' weakness greater than upper extremities' with gait dysfunction, in a patient with multiple treatments with pain management services ,etiology unclear, possible neuritis, neurology consulted. -Recent bilateral L4-5 radiofrequency thermal coagulation of medial branch, dorsal ramus with [facility] pain management services on 09/26/2022 -History of covid infection, 08/25/2021 and March 2022 -History of renal calculi -Hypertension -Chronic back pain -Gastroesophageal reflux disease -History of polycythemia vera -Hypothyroidism Hospital course:This is a 43-year-old gentleman with history of recently diagnosed bronchitis,chronic back pain with multiple procedures with [facility] pain management services-most recently , gastroesophageal reflux disease, hypertension, hypothyroidism, renal calculi, cholecystectomy, appendectomy, umbilical hernia, presented to the ER with increased pain and severe weakness of all 4 extremities that initially started early this morning around 4 AM with bilateral lower extremities significantly weaker than his upper extremities. Reports muscle and joint pain of all extremities. Stated he had to crawl to get into his car, unable to walk. Yesterday he went to PCPs office,diagnosed with bronchitis, prescribed prednisone taper, Z-Mike and baclofen. Denies fever or chills. Occasional productive cough. Reports he also had chest pain this morning that radiated down his left arm, history of heart attack. Denies nausea vomiting or diarrhea. Denies abdominal pain. Reports his chest pain has subsided. PCP reporting recent cardiac workup in [place]. Denies diaphoresis, shortness of breath. Denies syncope. Denies fall, traumatic event. EKG reporting sinus tachycardia, possible right ventricular hypertrophy. Troponin 0.017, 0.021, 0.030. Cardiology consult in place. Chest x-ray reportedly mild cardiomegaly without acute pulmonary infiltrate. Afebrile normal WBC. Hemoglobin 17.2, platelets 194, INR 1, chemistry panel unremarka ble. Serology negative for influenza type a, type B, RSV, drummond virus, group A strep. CK 73, CRP less than 0.5 ESR 2, hemoglobin A1c 5.4 , Lyme screen negative. Triglycerides 72, cholesterol 177, LDL 125, HDL 37 . Echo reported normal LV function, no significant abnormality, slightly elevated right-sided pressures. Denies chest pain, palpitations or shortness of breath. Denies lightheadedness, dizziness or focal deficits. Significant clinical improvement, weakness resolved, staff reported patient ambulated in the hallway this morning independently without any assistance. Evaluated by cardiology and has been cleared for discharge/recommending outpatient stress test. Patient will be discharged home today in a stable condition with guarded prognosis, pending final DC recommendations and clearance per neurology. The impression and plan of care has been dictated as directed. : I performed a history and examination of this patient, discussed the same with the dictator. I agree with the dictator's note ,documented as a scribe. Any additional findings or plans will be noted. Patient Condition at Discharge: Stable Plan - Discharge Summary Discharge Rx Participant: No New Discharge Prescriptions: Continue Testosterone Cypionate [Depo-Testosterone] 200 mg IM Q72H oxyCODONE-APAP 5-325MG [Percocet 5-325 mg] 1 - 2 tab PO DAILY PRN PRN Reason: Pain predniSONE See Taper PO DAILY Azithromycin [Zithromax Z Pack] See Taper PO DAILY Sildenafil Citrate 25 mg PO DAILY PRN PRN Reason: E.D. Baclofen 10 mg PO TID 30 Days #90 tab oxyCODONE HCL/ACETAMINOPHEN [Percocet 5-325 mg] 2 tab PO DAILY Discharge Medication List Testosterone Cypionate [Depo-Testosterone] 200 mg IM Q72H 01/26/19 [History] Baclofen 10 mg PO TID 30 Days #90 tab 09/15/22 [Rx] Azithromycin [Zithromax Z Pack] See Taper PO DAILY 01/15/23 [History] Sildenafil Citrate 25 mg PO DAILY PRN 01/15/23 [History] oxyCODONE HCL/ACETAMINOPHEN [Percocet 5-325 mg] 2 tab PO DAILY 01/15/23 [History] oxyCODONE-APAP 5-325MG [Percocet 5-325 mg] 1 - 2 tab PO DAILY PRN 01/15/23 [ History] predniSONE See Taper PO DAILY 01/15/23 [History] Follow up Appointment(s)/Referral(s): Genia García MD [STAFF PHYSICIAN] - 2 Weeks Ryan Loving Jr, DO [Primary Care Provider] - 3 Days
== END 2023-01-16 12:52 | disposition home or self-care (01) ==
LOC: EC 05:11 → 6NMEDSUR 07:14
PROVIDERS: ADMIT Family Medicine; ATTEND Family Medicine
DX: R07.9 Chest pain, unspecified (principal); J40 Bronchitis, not specified as acute or chronic; R53.1 Weakness; M79.605 Pain in left leg; M79.604 Pain in right leg; M79.602 Pain in left arm; M79.601 Pain in right arm; I10 Essential (primary) hypertension; G89.29 Other chronic pain; M54.9 Dorsalgia, unspecified; Z20.822 Contact with and (suspected) exposure to COVID-19; K21.9 Gastro-esophageal reflux disease without esophagitis; E03.9 Hypothyroidism, unspecified; Z87.442 Personal history of urinary calculi; D45 Polycythemia vera; Z90.49 Acquired absence of other specified parts of digestive tract; I51.7 Cardiomegaly; R05.8 Other specified cough; J02.9 Acute pharyngitis, unspecified; I25.2 Old myocardial infarction; Z86.16 Personal history of COVID-19; Z98.890 Other specified postprocedural states; Z81.8 Family history of other mental and behavioral disorders; Z79.890 Hormone replacement therapy; Z79.891 Long term (current) use of opiate analgesic; Z79.899 Other long term (current) drug therapy; Z88.5 Allergy status to narcotic agent; Z88.8 Allergy status to other drugs, medicaments and biological substances
CPT/HCPCS: 96376; 96361 ×3; 96375; 96360; 96374; 99285; 36415; 93005; 93306; 97162; 97166; 84207; 87651; 83921; 80061; 80053; 85652; 84443; 82607; 82550; 82746; 83605; 83735; 84484; 85025; 85610; 85730; 86140; 86618; 83036; 87636; 71046; G0378 ×2; J2930; C9113 ×2

== ENCOUNTER 2023-04-29 10:19 | Emergency (ER) | payer OTHER ==
[2023-04-29 10:30] VITALS: TEMP 98.2
[2023-04-29] MEDS ORDERED: SODIUM CHLORIDE 0.9% 1,000 ML IV ONE (11:01)
[2023-04-29] MEDS ORDERED: HYDROmorphone 1 MG/ML 1 ML SYRINGE IVP STA (11:01)
--- NOTE | 2023-04-29 11:03 | ED ---
General Adult HPI - General Chief complaint: Chest Pain Stated complaint: poss Allgeric Reaction to Meds from [facility]04/27 Time Seen by Provider: 04/29/23 10:38 Source: patient, RN notes reviewed, old records reviewed Mode of arrival: ambulatory Limitations: no limitations - History of Present Illness Initial comments: 23-year-old male presenting for evaluation of possible medication reaction. Patient states he was prescribed medication at [facility] for headache which she does get quite frequently. He was given steroids and states that he developed some pain in his bilateral legs. He states this happened to him once before and it was associated with steroids. He reports anterior thigh pain which is bilateral. Worse with movement. He also reports some mild chest discomfort. Symptoms 7 present for the past 2 days. No injury. No fever. - Related Data Home Medications Medication Instructions Recorded Confirmed Testosterone Cypionate 200 mg IM Q72H 01/26/19 04/29/23 [Depo-Testosterone] Sildenafil Citrate 25 mg PO DAILY PRN 01/15/23 04/29/23 Previous Rx's Medication Instructions Recorded Baclofen 10 mg PO TID 30 Days #90 tab 04/29/23 Ibuprofen [Motrin] 800 mg PO Q8H 30 Days #90 tab 04/29/23 oxyCODONE-APAP 5-325MG [Percocet 1 - 2 tab PO DAILY PRN 30 Days #60 04/29/23 5-325 mg] tab oxyCODONE-APAP 5-325MG [Percocet 1 tab PO BID PRN 30 Days #60 tab 04/29/23 5-325 mg] Allergies Allergy/AdvReac Type Severity Reaction Status Date / Time benzalkonium chloride Allergy Severe Swelling Verified 04/29/23 10:30 oxycodone Allergy Itching, Verified 04/29/23 10:30 still taking percocet at home duloxetine HCl AdvReac Severe severe Verified 04/29/23 10:30 [From Cymbalta] headache gabapentin [From Neurontin] AdvReac HEADACHE Verified 04/29/23 10:30 Review of Systems ROS Statement: Those systems with pertinent positive or pertinent negative responses have been documented in the HPI. ROS Other: All systems not noted in ROS Statement are negative. Past Medical History Past Medical History: Hypertension, Thyroid Disorder Additional Past Medical History / Comment(s): severe headache,HX KIDNEY STONE, CHRONIC BACK PAIN, LOW THYROID, UMBILICAL HERNIA.back pain, had covid 08/25/21 and March 2022 History of Any Multi-Drug Resistant Organisms: None Reported Past Surgical History: No Surgical Hx Reported Additional Past Surgical History / Comment(s): PAIN PROCEDURES, multiple kidney stone removals, secondary polycythemia Past Anesthesia/Blood Transfusion Reactions: No Reported Reaction Additional Past Anesthesia/Blood Transfusion Reaction / Comment(s): States needs more sedation to put me asleep. Past Psychological History: No Psychological Hx Reported Smoking Status: Never smoker - Past Family History Mother History Unknown: Yes Family Medical History: Dementia Father Additional Family Medical History / Comment(s): SMOKER. General Exam Limitations: no limitations General appearance: alert, in no apparent distress Head exam: Present: atraumatic, normocephalic Eye exam: Present: normal appearance, PERRL ENT exam: Present: normal exam Neck exam: Present: normal inspection. Absent: tenderness Respiratory exam: Present: normal lung sounds bilaterally. Absent: respiratory distress, wheezes Cardiovascular Exam: Present: regular rate, normal rhythm GI/Abdominal exam: Present: soft. Absent: distended, tenderness, guarding Extremities exam: Present: other (Normal distal pulses in the lower extremity is). Absent: pedal edema, calf tenderness Neurological exam: Present: alert, oriented X3, CN II-XII intact. Absent: motor sensory deficit Skin exam: Present: warm, dry Course Vital Signs 04/29/23 04/29/23 04/29/23 10:27 10:44 12:00 Temperature 98.2 F Pulse Rate 89 78 Respiratory 18 21 Rate Blood Pressure 130/82 116/72 O2 Sat by Pulse 96 95 98 Oximetry 04/29/23 04/29/23 04/29/23 12:07 13:00 13:12 Temperature Pulse Rate 78 76 Respiratory 18 20 Rate Blood Pressure 122/73 122/81 122/82 O2 Sat by Pulse 98 95 97 Oximetry 04/29/23 14:00 Temperature Pulse Rate 72 Respiratory Rate Blood Pressure 129/77 O2 Sat by Pulse 99 Oximetry Medical Decision Making - Medical Decision Making Was pt. sent in by a medical professional or institution (, PA, OUTBOARD MOTOR TESTER, urgent care, hospital, or [facility]...) When possible be specific @ -No Did you speak to anyone other than the patient for history (EMS, parent, family, police, friend...)? What history was obtained from this source @ -No Did you review nursing and triage notes (agree or disagree)? Why? @ -I reviewed and agree with nursing and triage notes Were old charts reviewed (outside hosp., previous admission, EMS record, old EKG, old radiological studies, urgent care reports/EKG's, ch[facility] records)? Report findings @ -No old charts were reviewed Differential Diagnosis (chest pain, altered mental status, abdominal pain women, abdominal pain men, vaginal bleeding, weakness, fever, dyspnea, syncope, headache, dizziness, GI bleed, back pain, seizure, CVA, palpatations, mental health, musculoskeletal)? @ -not applicable EKG interpreted by me (3pts min.). @ -EKG: Sinus rhythm rate of 84, MD interval 172, QRS duration 99, QTC 413, no ST segment elevation. X-rays interpreted by me (1pt min.). @ No focal pneumonia, no pneumothorax CT interpreted by me (1pt min.). @ -None done U/S interpreted by me (1pt. min.). @ -None done What testing was considered but not performed or refused? (CT, X-rays, U/S, lab s)? Why? @ -None What meds were considered but not given or refused? Why? @ -None Did you discuss the management of the patient with other professionals (professionals i.e. , PA, OUTBOARD MOTOR TESTER, lab, RT, psych nurse, social media intern, tower supervisor, teacher, credit or loans officer, case consultant)? Give summary @ -No Was smoking cessation discussed for >3mins.? @ -No Was critical care preformed (if so, how long)? @ -No Were there social determinants of health that impacted care today? How? (Homelessness, low income, unemployed, alcoholism, drug addiction, transportation, low edu. Level, literacy, decrease access to med. care, usp, rehab)? @ -No Was there de-escalation of care discussed even if they declined (Discuss DNR or withdrawal of care, Hospice)? DNR status @ -No What co-morbidities impacted this encounter? (DM, HTN, Smoking, COPD, CAD, Cancer, CVA, ARF, Chemo, Hep., AIDS, mental health diagnosis, sleep apnea, morbid obesity)? @ -[Chronic pain Was patient admitted / discharged? Hospital course, mention meds given and route, prescriptions, significant lab abnormalities, going to OR and other pertinent info. @ -[43-year-old male presents for evaluation of possible reaction to steroids with diffuse myalgia predominantly in the legs. Patient has stable vitals. Normal pulse exam. He's in sinus rhythm without definitive signs of ischemia. He has a normal CBC with the exception of a mild leukocytosis which is likely secondary to recent steroid administration. Otherwise laboratory testing is unremarkable including electrolytes, troponin, and creatinine kinase. Patient feeling better on reevaluation. He will follow with his primary care physician and return parameters discussed at length. Undiagnosed new problem with uncertain prognosis? @ -No Drug Therapy requiring intensive monitoring for toxicity (Heparin, Nitro, Insulin, Cardizem)? @ -No Were any procedures done? @ -No Diagnosis/symptom? @ Myalgia Acute, or Chronic, or Acute on Chronic? @ -[Acute Uncomplicated (without systemic symptoms) or Complicated (systemic symptoms)? @ -default Side effects of treatment? @ -No Exacerbation, Progression, or Severe Exacerbation? @ -No Poses a threat to life or bodily function? How? (Chest pain, [place], [place], pneumonia, PE, COPD, DKA, ARF, appy, cholecystitis, CVA, Diverticulitis, Homicidal, Suicidal, threat to staff... and all critical care pts) @ -[Low risk - Lab Data Result diagrams: 04/29/23 11:42 04/29/23 11:42 Lab Results 04/29/23 04/29/23 04/29/23 Range/Units 11:42 11:42 11:42 WBC 14.1 H (3.8-10.6) k/uL RBC 5.27 (4.30-5.90) m/uL Hgb 15.1 (13.0-17.5) gm/dL Hct 47.0 (39.0-53.0) % MCV 89.1 (80.0-100.0) fL MCH 28.7 (25.0-35.0) pg MCHC 32.2 (31.0-37.0) g/dL RDW 15.6 H (11.5-15.5) % Plt Count 223 (150-450) k/uL MPV 9.3 Neutrophils % 73 % Lymphocytes % 17 % Monocytes % 8 % Eosinophils % 1 % Basophils % 0 % Neutrophils # 10.2 H (1.3-7.7) k/uL Lymphocytes # 2.3 (1.0-4.8) k/uL Monocytes # 1.2 H (0-1.0) k/uL Eosinophils # 0.1 (0-0.7) k/uL Basophils # 0.0 (0-0.2) k/uL PT 10.9 (9.0-12.0) sec INR 1.0 (<1.2) APTT 23.1 (22.0-30.0) sec Sodium 138 (137-145) mmol/L Potassium 3.8 (3.5-5.1) mmol/L Chloride 101 (98-107) mmol/L Carbon Dioxide 30 (22-30) mmol/L Anion Gap 7 mmol/L BUN 11 (9-20) mg/dL Creatinine 1.15 (0.66-1.25) mg/dL Est GFR (CKD-EPI)AfAm 89 (>60 ml/min/1.73 sqM) Est GFR (CKD-EPI)NonAf 77 (>60 ml/min/1.73 sqM) Glucose 81 (74-99) mg/dL Calcium 8.4 (8.4-10.2) mg/dL Magnesium 2.0 (1.6-2.3) mg/dL Total Bilirubin 0.4 (0.2-1.3) mg/dL AST 21 (17-59) U/L ALT 23 (4-49) U/L Alkaline Phosphatase 50 (38-126) U/L Creatine Kinase 122 (55-170) U/L Troponin I (0.000-0.034) ng/mL Total Protein 6.3 (6.3-8.2) g/dL Albumin 3.6 (3.5-5.0) g/dL 04/29/23 Range/Units 11:42 WBC (3.8-10.6) k/uL RBC (4.30-5.90) m/uL Hgb (13.0-17.5) gm/dL Hct (39.0-53.0) % MCV (80.0-100.0) fL MCH (25.0-35.0) pg MCHC (31.0-37.0) g/dL RDW (11.5-15.5) % Plt Count (150-450) k/uL MPV Neutrophils % % Lymphocytes % % Monocytes % % Eosinophils % % Basophils % % Neutrophils # (1.3-7.7) k/uL Lymphocytes # (1.0-4.8) k/uL Monocytes # (0-1.0) k/uL Eosinophils # (0-0.7) k/uL Basophils # (0-0.2) k/uL PT (9.0-12.0) sec INR (<1.2) APTT (22.0-30.0) sec Sodium (137-145) mmol/L Potassium (3.5-5.1) mmol/L Chloride (98-107) mmol/L Carbon Dioxide (22-30) mmol/L Anion Gap mmol/L BUN (9-20) mg/dL Creatinine (0.66-1.25) mg/dL Est GFR (CKD-EPI)AfAm (>60 ml/min/1.73 sqM) Est GFR (CKD-EPI)NonAf (>60 ml/min/1.73 sqM) Glucose (74-99) mg/dL Calcium (8.4-10.2) mg/dL Magnesium (1.6-2.3) mg/dL Total Bilirubin (0.2-1.3) mg/dL AST (17-59) U/L ALT (4-49) U/L Alkaline Phosphatase (38-126) U/L Creatine Kinase (55-170) U/L Troponin I 0.012 (0.000-0.034) ng/mL Total Protein (6.3-8.2) g/dL Albumin (3.5-5.0) g/dL Disposition Clinical Impression: Myalgia Disposition: HOME SELF-CARE Condition: Fair Instructions (If sedation given, give patient instructions): Musculoskeletal Pain (ED) Is patient prescribed a controlled substance at d/c from ED?: No Referrals: Ryan Loving Jr, DO [Primary Care Provider] - 1-2 days Time of Disposition: 14:03
[2023-04-29] MEDS ORDERED: ONDANSETRON 4 MG/2 ML VIAL IVP STA (12:05)
[2023-04-29 12:32] LABS: Partial Thromboplastin Time 23.1 sec (22.0-30.0); Prothrombin Time 10.9 sec (9.0-12.0)
[2023-04-29 12:34] LABS: Basophils % (A) 0 %; Eosinophils # (A) 0.1 k/uL (0-0.7); Eosinophils % (A) 1 %; HGB 15.1 gm/dL (13.0-17.5); Lymphocytes # (A) 2.3 k/uL (1.0-4.8); Lymphocytes % (A) 17 %; MCH 28.7 pg (25.0-35.0); MCHC 32.2 g/dL (31.0-37.0); MCV 89.1 fL (80.0-100.0); Mean Platelet Volume 9.3; Monocytes # (A) 1.2 k/uL (0-1.0); Monocytes % (A) 8 %; Neutrophils # (A) 10.2 k/uL (1.3-7.7); Neutrophils % (A) 73 %; Platelet Count 223 k/uL (150-450); RBC 5.27 m/uL (4.30-5.90); RDW 15.6 % (11.5-15.5); WBC 14.1 k/uL (3.8-10.6)
[2023-04-29 12:50] LABS: ALT 23 U/L (4-49); AST 21 U/L (17-59); African American GFR (CKD) 89 (>60 ml/min/1.73 sqM); Albumin 3.6 g/dL (3.5-5.0); Alkaline Phosphatase 50 U/L (38-126); Anion Gap 7 mmol/L; Blood Urea Nitrogen 11 mg/dL (9-20); Calcium 8.4 mg/dL (8.4-10.2); Carbon Dioxide 30 mmol/L (22-30); Chloride 101 mmol/L (98-107); Creatine Kinase 122 U/L (55-170); Glucose 81 mg/dL (74-99); Non-African American GFR(CKD) 77 (>60 ml/min/1.73 sqM); Potassium 3.8 mmol/L (3.5-5.1); Sodium 138 mmol/L (137-145); Total Bilirubin 0.4 mg/dL (0.2-1.3); Total Protein 6.3 g/dL (6.3-8.2)
[2023-04-29 13:14] VITALS: RESP 20
--- NOTE | 2023-04-29 13:37 | XR ---
EXAMINATION TYPE: XR chest 2V DATE OF EXAM: 04/29/2023 COMPARISON: 01/15/2023 TECHNIQUE: PA and lateral views submitted. HISTORY: Chest pain slightly coarsened interstitium the Limited inspiration. Surgical clips in the up per abdomen. FINDINGS: The lungs are clear and there is no pneumothorax, pleural effusion, or focal pneumonia. Heart size normal and no overt failure. Osseous structures demonstrate hypertrophic and degenerative changes of the spine. IMPRESSION: 1. No acute process. Suspect the slightly central coarsened interstitium may be on the basis of reduc ed inspiration rather than mild venous congestion or interstitial pneumonitis correlate clinically.
[2023-04-29 14:33] VITALS: BP 118/87; PULSE 77
== END 2023-04-29 14:33 | disposition home or self-care (01) ==
LOC: EC 10:19
DX: M79.10 Myalgia, unspecified site (principal); I10 Essential (primary) hypertension; Z86.16 Personal history of COVID-19; Z88.5 Allergy status to narcotic agent; Z88.8 Allergy status to other drugs, medicaments and biological substances; Z79.899 Other long term (current) drug therapy
CPT/HCPCS: 99285 ×2; 96374 ×2; 96375 ×2; 96361 ×2; 36415; 93005; 80053; 82550; 83735; 84484; 85025; 85610; 85730; 71046; J2405; J1170

== ENCOUNTER → 2023-04-29 | Outpatient (CLI) | payer OTHER ==
[2023-04-29 09:20] VITALS: BP 124/83; PULSE 80; RESP 17; TEMP 98.4
--- NOTE | 2023-04-29 15:29 | P.PAINPG ---
PQRS Measure Charge Sheet Comment: A 42 yr old male with a history of severe and chronic low back pain secondary to lumbar DDD and spondylosis with facet arthropathy without myelopathy and BL Sacroiliitis presents today for evaluation s/p BL RFA L3-L5. Pt states he experienced 80 % pain relief x 5 mos s/p procedure. Pain level is currently at 7/10 in intensity, constant, localized in the lower lumbar spine, dull/ achy in character w shooting towards the BL hips. Pain is provoked by standing/ bending for periods of 20 min or more. Pain is alleviated with chiropractic treatments 1-2 times per week for the last 3 yrs for integrated w massage, heat, home exercise regimen as tolerated, repositioning and rest. Oswestry axial pain score of 31. Interventional pain procedures completed include BL SI injection, BL RFA L3-L5 (Sep 2022) Patient is currently on Percocet, Baclofen, Lyrica, Ibu Patient denies any side effects of the medication(s), denies excessive drowsiness or sleepiness, denies suicidal ideation and reports that the current pain medication is helping to control the pain and improve activities of daily living. Patient denies any motor or sensory deficits. Patient denies any fever or night sweats, denies any change in the bowel movements or urination. Physical Examination: -Constitutional: Cooperative. Not in acute distress . - Neurologic: Cranial nerve II to XII intact. No focal neurological deficits. - Psychatric: Alert & oriented x 3. Matching mood & appropriate affect. Judgment and insight intact. - Musculoskeletal: Cervical spine: Muscle bulk/ tone/ strength in the bilateral upper extremities normal Vertebral body tenderness to palpation over Spurling test positive Distraction test positive Facet loading test positive Thoracic spine Muscle bulk / tone/ strength in the bilateral paraspinal muscles normal Vertebral body tender to palpation over Facet loading test positive Lumbar spine: Motor bulk/ tone/ strength lower extremities , thigh and legs : 5/5 Deep tendon reflexes : Normal Knee Jerk. Normal Ankle Jerk . Vertebral body tenderness to palpation over Lumbar Facet Loading Test positive over BL L4-L5, L5-S1 facets Straight Leg Raise: positive at 30 degrees right side/ left side Gaenslen's Test positive Sacral spine : Severe tenderness over the Sacroiliac joint: right side / left side Range of motion: Flexion of the lumbar spine <60 degrees Range of motion: Extension of the lumbar spine <20 degrees Gaenslen's Test positive Yair test: positive right side / left side Thigh Thrust Test Sacral Thrust Test Assessment and plan: Chronic low back pain secondary to lumbar degenerative disc disease, spondylosis with facet arthropathy without myelopathy, BL Sacroiliitis Recommendation of BL RFA L4-L5, L5-S1. Pt exhibited substantial pain relief w prior RFA procedure. Risks, benefits of procedure discussed and pt verbalized understanding. Admits to anticoagulant use or medical history of diabetes. Protocol for discontinuation/ continuation of medications peter procedure discussed. Chronic and current use of high-risk medication (Opioids). The patient was counseled about risk of opioid use, psychological risk associated with opioids and was orally counseled to not overuse , divert or sell medications. Pt is to store medication in a safe location. The patient is counseled against driving while using narcotic medications and also not to use alcohol or any illicit recreational drugs. Patient verbalized understanding that the lack of compliance will result in failure to renew narcotic prescription(s) as well as possible discharge from the clinic Diagnoses, prognosis and treatment options including but not limited to physical therapy, surgical interventions, interventional therapies and medication management including narcotics and adjuvant medication were discussed. All patient questions answered MAPS reviewed and it was appropriate. Prescription refill for Percocet 5/325mg #60, Baclofen & Ibuprofen w 1 RF I have spent less than 30 minutes on patient care today. Dr Bowles was available by phone for the evaluation of this patient. The time was used to review the medical records including relevant urine studies and Prescription history (MAPs), review of the available imaging, evaluation and examination of the patient, coordination of care with the medical staff and if applicable referring physicians, as well as creation of the medical record PQRS Narrative: Smoking Status Never smoker Narcotic Agreement Date Signed 09/16/21 Hx Alcohol Use (MH) No Home Medications: Ambulatory Orders Testosterone Cypionate [Depo-Testosterone] 200 mg IM Q72H 01/26/19 Sildenafil Citrate 25 mg PO DAILY PRN 01/15/23 Baclofen 10 mg PO TID 30 Days #90 tab 04/29/23 Ibuprofen [Motrin] 800 mg PO Q8H 30 Days #90 tab 04/29/23 oxyCODONE-APAP 5-325MG [Percocet 5-325 mg] 1 - 2 tab PO DAILY PRN 30 Days #60 tab 04/29/23 oxyCODONE-APAP 5-325MG [Percocet 5-325 mg] 1 tab PO BID PRN 30 Days #60 tab 04/29/23 Controlled Substance Measures - Controlled Substance Measures Is patient prescribed a controlled substance at discharge?: Yes When asked, does pt state using other controlled substances?: Yes If prescribed controlled substance>3 days was MAPS reviewed?: Yes
== END ==
LOC: PNWHC3 08:19
PROVIDERS: ATTEND Specialist
DX: M51.37 Other intervertebral disc degeneration, lumbosacral region (principal); M47.817 Spondylosis without myelopathy or radiculopathy, lumbosacral region; G89.29 Other chronic pain; Z79.891 Long term (current) use of opiate analgesic; Z88.5 Allergy status to narcotic agent; Z88.8 Allergy status to other drugs, medicaments and biological substances
CPT/HCPCS: 99211

== ENCOUNTER 2023-05-22 06:09 | Day surgery (SDC) | payer OTHER ==
[2023-05-22] MEDS ORDERED: LACTATED RINGERS 1,000 ML IV SCH (06:11)
[2023-05-22] MEDS ORDERED: LIDOCAINE 1% (10MG/ML) FOR IV START INTRADERMA PRN (06:11)
[2023-05-22 06:46] VITALS: RESP 16; TEMP 97.6
[2023-05-22] MEDS ORDERED: ONDANSETRON 4 MG/2 ML VIAL ONE (06:52)
[2023-05-22] MEDS ORDERED: ONDANSETRON 4 MG/2 ML VIAL IVP ONE (06:54)
[2023-05-22] MEDS ORDERED: MIDAZOLAM 2 MG/2 ML VIAL ONE (06:59)
[2023-05-22] MEDS ORDERED: fentaNYL (PF) 50 MCG/ML 2 ML AMP ONE (06:59)
[2023-05-22] MEDS ORDERED: diphenhydrAMINE 50 MG/ML 1 ML VIAL ONE (06:59)
[2023-05-22] MEDS ORDERED: ROPIVACAINE 5 MG/ML 20 ML AMPULE ONE (07:04)
[2023-05-22] MEDS ORDERED: methylPREDNISolone ACETATE 40 MG/ML 1 ML VIAL ONE (07:04)
--- NOTE | 2023-05-22 07:25 | P.PCN ---
Date of Procedure: 05/22/23 Procedure(s) Performed: PREOPERATIVE DIAGNOSIS: 1-Lumbar Spondylosis with Facet Arthropathy without myelopathy. 2- Lumber degenerative disc disease. POSTOPERATIVE DIAGNOSIS: 1- Lumbar Spondylosis with Facet Arthropathy without myelopathy. 2- Lumber degenerative disc disease. PROCEDURES : Bilateral Radiofrequency thermocoagulation, L3 , L4 , and L5 medial branch, with fluoroscopic guidance (fluoroscopy images available in the radiology department) ( to denervate the facet joint at bilateral L4-5 ,and L5- S1 levels ). ANESTHESIA: Monitored anesthesia care as per anesthesia department . EBL: Minimal PROCEDURE INDICATION: The patient with low back pain secondary to lumbar facet arthropathy who had more than 50% relief of her pain with previous diagnostic lumbar medial branch block with bupivacaine. PROCEDURE DESCRIPTION / TECHNIQUE: The patient was seen and identified in the preoperative area. Risks, benefits, complications, including but not limited to risk of infection ,bleeding , allergic reactions to the medications and no complete pain releife , and alternatives were discussed with the patient, the patient agreed to proceed with the procedure and signed the consent. IV was started. Vital signs remained stable throughout the procedure. Patient was taken to the OR and time out was completed. The patient was placed in the prone position on the procedure table. The lumber area was prepped and draped in the usual sterile fashion. . Vital signs were closely monitored during the procedure .IV sedation was used during the procedure to decrease patients anxiety. Using AP and then oblique fluoroscopy, the ``eye of the John dog corresponding to the connection between the superior and transverse articular processes of right L3, L4, and L5 were identified, marked, and localized with 1% lidocaine. Subsequently, a 18 [id number] radiofrequency cannula with a 10- mm active tip was advanced guided by fluoroscopy to each of the``eyes of the John dog at right L3, L4, and L5. Each site then underwent sensory testing at 50 Hz and 0 to 1 volt and motor testing at 2.5 Hz and 0 to 3 volt with local stimulation, but no radicular symptoms down the legs. Thereafter each sites underwent radiofrequency thermocoagulation at 80 degrees celsius for 90 seconds after injecting 0.5 ml of PF Ropivacaine 1ml, then after the thermocoagulation done , 1 ml of the block solution containing Depo-Medrol 20 mg and 3 ml of Ropivacaine 0.5% was injected at the right L3 , L4 , and L5 , levels after negative aspiration of CSF and blood and with no paresthesias. Cannulas were retracted while injecting lidocaine 1% until the needle is out. The same procedure was repeated at the level of Left L3, L4, and L5 levels. At the end of the procedure, the skin was cleansed and bandages were applied. COMPLICATIONS: No acute complications. DISPOSITION / PLANS: The patient was placed in a supine position and transferred to the recovery area in a stable condition for observation and was discharged from the recovery room after meeting discharge criteria. Home discharge instructions given to the patient by the staff. The patient was reexamined prior to discharge. The patient will schedule a follow up in the clinic in 2-4 weeks.
[2023-05-22] MEDS ORDERED: IV FLUID CONTINUATION 1,000 ML IV ONE (07:27)
[2023-05-22 07:43] VITALS: BP 134/86; PULSE 84
--- NOTE | 2023-05-22 07:58 | FL ---
Fluoroscopy History: Joseph Lumbar Rad Freq Joseph Lumbar Rad Freq 15sec fluoro time 0.49863 DAP
== END 2023-05-22 08:05 | disposition home or self-care (01) ==
LOC: ORPAIN 06:09
PROVIDERS: ATTEND Specialist
DX: M51.36 Other intervertebral disc degeneration, lumbar region (principal); M47.816 Spondylosis without myelopathy or radiculopathy, lumbar region; E07.9 Disorder of thyroid, unspecified; Z88.5 Allergy status to narcotic agent; Z79.899 Other long term (current) drug therapy; Z79.890 Hormone replacement therapy
CPT/HCPCS: 64635; 64636 ×2; 99152; J2250; J1200; J1030; J2405; J3010; J2795

== ENCOUNTER → 2023-05-27 | Outpatient (CLI) | payer OTHER ==
[2023-05-27 07:48] VITALS: RESP 16; TEMP 98.1
[2023-05-27 07:58] LABS: Basophils % (A) 0 %; Eosinophils # (A) 0.1 k/uL (0-0.7); Eosinophils % (A) 0 %; HCT 49.7 % (39.0-53.0); HGB 15.8 gm/dL (13.0-17.5); Hypochromasia Slight; Lymphocytes # (A) 1.2 k/uL (1.0-4.8); Lymphocytes % (A) 6 %; MCH 28.6 pg (25.0-35.0); MCHC 31.8 g/dL (31.0-37.0); Mean Platelet Volume 9.3; Monocytes # (A) 0.8 k/uL (0-1.0); Monocytes % (A) 4 %; Neutrophils # (A) 18.9 k/uL (1.3-7.7); Neutrophils % (A) 90 %; Platelet Count 280 k/uL (150-450); RBC 5.52 m/uL (4.30-5.90); RDW 14.4 % (11.5-15.5); WBC 21.1 k/uL (3.8-10.6)
[2023-05-27 08:40] VITALS: BP 110/69; PULSE 88
== END ==
LOC: PROCWHC3 07:29
PROVIDERS: ATTEND Internal Medicine Hematology & Oncology
DX: D75.1 Secondary polycythemia (principal)
CPT/HCPCS: 36415; 85025; 99195

== ENCOUNTER 2023-06-02 13:58 | Emergency (ER) | payer OTHER ==
[2023-06-02] MEDS ORDERED: SODIUM CHLORIDE 0.9% 1,000 ML IV STA (14:49)
[2023-06-02] MEDS ORDERED: METOCLOPRAMIDE 5 MG/ML 2 ML VIAL IVP STA (14:49)
[2023-06-02] MEDS ORDERED: HYDROmorphone 1 MG/ML 1 ML SYRINGE IVP STA (14:50)
--- NOTE | 2023-06-02 14:52 | ED ---
General Adult HPI - General Chief complaint: Abdominal Pain Stated complaint: possible kidney stone Time Seen by Provider: 06/02/23 14:29 Source: patient, RN notes reviewed, old records reviewed Mode of arrival: ambulatory Limitations: no limitations - History of Present Illness Initial comments: Patient is a pleasant 43-year-old male presenting to the emergency Department with left flank pain. Onset of symptoms was yesterday. Patient does have some dysuria. Discomfort increases left flank with urination as well. Patient does have history of similar symptoms multiple times previously, approximately 30 associated with kidney stones. No fever. Patient has nausea without vomiting. - Related Data Home Medications Medication Instructions Recorded Confirmed Testosterone Cypionate 200 mg IM Q72H 01/26/19 05/27/23 [Depo-Testosterone] Sildenafil Citrate 25 mg PO DAILY PRN 01/15/23 05/27/23 Ibuprofen [Motrin] 800 mg PO Q8H PRN 05/21/23 05/27/23 Previous Rx's Medication Instructions Recorded Baclofen 10 mg PO TID 30 Days #90 tab 04/29/23 oxyCODONE-APAP 5-325MG [Percocet 1 - 2 tab PO DAILY PRN 30 Days #60 04/29/23 5-325 mg] tab oxyCODONE-APAP 5-325MG [Percocet 1 tab PO BID PRN 30 Days #60 tab 04/29/23 5-325 mg] Allergies Allergy/AdvReac Type Severity Reaction Status Date / Time benzalkonium chloride Allergy Severe Swelling Verified 05/27/23 07:41 oxycodone Allergy Itching, Verified 05/27/23 07:41 still taking percocet at home duloxetine HCl AdvReac Severe severe Verified 05/27/23 07:41 [From Cymbalta] headache gabapentin [From Neurontin] AdvReac HEADACHE Verified 05/27/23 07:41 Review of Systems ROS Statement: Those systems with pertinent positive or pertinent negative responses have been documented in the HPI. ROS Other: All systems not noted in ROS Statement are negative. Constitutional: Denies: fever Eyes: Denies: eye pain ENT: Denies: ear pain Respiratory: Denies: cough Cardiovascular: Denies: chest pain Gastrointestinal: Reports: as per HPI, nausea. Denies: vomiting Musculoskeletal: Reports: as per HPI Past Medical History Past Medical History: Blood Disorder, Hypertension, Thyroid Disorder Additional Past Medical History / Comment(s): Polycythemia, severe headache,HX KIDNEY STONE, CHRONIC BACK PAIN, LOW THYROID, UMBILICAL HERNIA. had covid 08/12 01/30 and March 2022 History of Any Multi-Drug Resistant Organisms: None Reported Past Surgical History: No Surgical Hx Reported Additional Past Surgical History / Comment(s): PAIN PROCEDURES, multiple kidney stone removals, secondary polycythemia Past Anesthesia/Blood Transfusion Reactions: No Reported Reaction Additional Past Anesthesia/Blood Transfusion Reaction / Comment(s): States needs more sedation to put me asleep. Pt states anesthesia makes him itch and nauseated, pt has received benadryl before and after surgery as well as zofran prior. Past Psychological History: No Psychological Hx Reported Smoking Status: Never smoker Past Alcohol Use History: None Reported Past Drug Use History: None Reported - Past Family History Mother History Unknown: Yes Family Medical History: CVA/TIA, Dementia Father Additional Family Medical History / Comment(s): SMOKER. General Exam Limitations: no limitations General appearance: alert, in no apparent distress Head exam: Present: normocephalic Eye exam: Present: normal appearance Neck exam: Present: normal inspection Respiratory exam: Present: normal lung sounds bilaterally Cardiovascular Exam: Present: regular rate, normal rhythm GI/Abdominal exam: Present: soft. Absent: distended, tenderness Extremities exam: Present: normal inspection Back exam: Present: CVA tenderness (L) (Mild tenderness just below left CVA) Neurological exam: Present: alert Psychiatric exam: Present: normal affect, normal mood Skin exam: Present: normal color Course Vital Signs 06/02/23 06/02/23 14:16 15:40 Temperature 98.8 F Pulse Rate 80 87 Respiratory 16 18 Rate Blood Pressure 168/75 135/75 O2 Sat by Pulse 98 96 Oximetry Medical Decision Making - Medical Decision Making Was pt. sent in by a medical professional or institution (, PA, FARM IMPLEMENT ENGINE MECHANIC, urgent care, hospital, or care home...) When possible be specific @ -No Did you speak to anyone other than the patient for history (EMS, parent, family, police, friend...)? What history was obtained from this source @ -No Did you review nursing and triage notes (agree or disagree)? Why? @ -I reviewed and agree with nursing and triage notes Were old charts reviewed (outside hosp., previous admission, EMS record, old EKG, old radiological studies, urgent care reports/EKG's, care home records)? Report findings @ -Previous CT report reviewed Differential Diagnosis (chest pain, altered mental status, abdominal pain women, abdominal pain men, vaginal bleeding, weakness, fever, dyspnea, syncope, headache, dizziness, GI bleed, back pain, seizure, CVA, palpatations, mental health, musculoskeletal)? @ -Differential Abdominal Pain Men: Appendicitis, cholecystitis, diverticulosis, ischemic bowel, pancreatitis, hep atitis, UTI, gastroenteritis, AAA, incarcerated hernia, bowel obstruction, constipation, inflammatory bowel, hepatitis, peptic ulcer disease, splenic infarction, perforated viscus, testicular torsion, this is not meant to be an all-inclusive list EKG interpreted by me (3pts min.). @ -As above X-rays interpreted by me (1pt min.). @ -None done CT interpreted by me (1pt min.). @ -Computed tomography scan abdomen and pelvis without acute abnormality, there is a stone in the left kidney U/S interpreted by me (1pt. min.). @ -None done What testing was considered but not performed or refused? (CT, X-rays, U/S, labs)? Why? @ -None What meds were considered but not given or refused? Why? @ -None Did you discuss the management of the patient with other professionals (professionals i.e. , PA, FARM IMPLEMENT ENGINE MECHANIC, lab, RT, psych nurse, criminal justice social worker, wood heel flap rubber, teacher, seismology technical officer, senior case manager)? Give summary @ -No Was smoking cessation discussed for >3mins.? @ -No Was critical care preformed (if so, how long)? @ -No Were there social determinants of health that impacted care today? How? (Homelessness, low income, unemployed, alcoholism, drug addiction, transportation, low edu. Level, literacy, decrease access to med. care, fpc, rehab)? @ -No Was there de-escalation of care discussed even if they declined (Discuss DNR or withdrawal of care, Hospice)? DNR status @ -No What co-morbidities impacted this encounter? (DM, HTN, Smoking, COPD, CAD, Cancer, CVA, ARF, Chemo, Hep., AIDS, mental health diagnosis, sleep apnea, morbid obesity)? @ -None Was patient admitted / discharged? Hospital course, mention meds given and route, prescriptions, significant lab abnormalities, going to OR and other pertinent info. @ -Patient reevaluated and resting comfortably in bed. Patient updated on results and need for follow-up. Patient advised also to follow-up regarding his pancreatic enzymes with primary care physician. Urine culture has been added and patient is advised follow-up with this with his primary care physician as well. Patient states he will also follow-up with his urologist. Undiagnosed new problem with uncertain prognosis? @ -No Drug Therapy requiring intensive monitoring for toxicity (Heparin, Nitro, Insulin, Cardizem)? @ -No Were any procedures done? @ -No Diagnosis/symptom? @ -Flank pain Acute, or Chronic, or Acute on Chronic? @ -Acute Uncomplicated (without systemic symptoms) or Complicated (systemic symptoms)? @ -default Side effects of treatment? @ -No Exacerbation, Progression, or Severe Exacerbation? @ -No Poses a threat to life or bodily function? How? (Chest pain, [place], NC, pneumonia, PE, COPD, DKA, ARF, appy, cholecystitis, CVA, Diverticulitis, Homicidal, Suicidal, threat to staff... and all critical care pts) @ -No - Lab Data Result diagrams: 06/02/23 14:56 06/02/23 14:56 Lab Results 06/02/23 06/02/23 06/02/23 Range/Units 14:56 14:56 14:56 WBC 11.2 H (3.8-10.6) k/uL RBC 5.06 (4.30-5.90) m/uL Hgb 14.5 (13.0-17.5) gm/dL Hct 44.9 (39.0-53.0) % MCV 88.8 (80.0-100.0) fL MCH 28.7 (25.0-35.0) pg MCHC 32.4 (31.0-37.0) g/dL RDW 14.7 (11.5-15.5) % Plt Count 215 (150-450) k/uL MPV 9.1 Neutrophils % 74 % Lymphocytes % 15 % Monocytes % 7 % Eosinophils % 3 % Basophils % 0 % Neutrophils # 8.3 H (1.3-7.7) k/uL Lymphocytes # 1.6 (1.0-4.8) k/uL Monocytes # 0.8 (0-1.0) k/uL Eosinophils # 0.3 (0-0.7) k/uL Basophils # 0.0 (0-0.2) k/uL PT 9.9 (9.0-12.0) sec INR 0.9 (<1.2) APTT 22.3 (22.0-30.0) sec Sodium (137-145) mmol/L Potassium (3.5-5.1) mmol/L Chloride (98-107) mmol/L Carbon Dioxide (22-30) mmol/L Anion Gap mmol/L BUN (9-20) mg/dL Creatinine (0.66-1.25) mg/dL Est GFR (CKD-EPI)AfAm (>60 ml/min/1.73 sqM) Est GFR (CKD-EPI)NonAf (>60 ml/min/1.73 sqM) Glucose (74-99) mg/dL Calcium (8.4-10.2) mg/dL Total Bilirubin (0.2-1.3) mg/dL AST (17-59) U/L ALT (4-49) U/L Alkaline Phosphatase (38-126) U/L Total Protein (6.3-8.2) g/dL Albumin (3.5-5.0) g/dL Amylase (30-110) U/L Lipase (23-300) U/L Urine Color Yellow Urine Appearance Clear (Clear) Urine pH 5.5 (5.0-8.0) Ur Specific [place] 1.022 (1.001-1.035) Urine Protein Negative (Negative) Urine Glucose (UA) Negative (Negative) Urine Ketones Trace H (Negative) Urine Blood Negative (Negative) Urine Nitrite Negative (Negative) Urine Bilirubin Negative (Negative) Urine Urobilinogen <2.0 (<2.0) mg/dL Ur Leukocyte Esterase Negative (Negative) 06/02/23 Range/Units 14:56 WBC (3.8-10.6) k/uL RBC (4.30-5.90) m/uL Hgb (13.0-17.5) gm/dL Hct (39.0-53.0) % MCV (80.0-100.0) fL MCH (25.0-35.0) pg MCHC (31.0-37.0) g/dL RDW (11.5-15.5) % Plt Count (150-450) k/uL MPV Neutrophils % % Lymphocytes % % Monocytes % % Eosinophils % % Basophils % % Neutrophils # (1.3-7.7) k/uL Lymphocytes # (1.0-4.8) k/uL Monocytes # (0-1.0) k/uL Eosinophils # (0-0.7) k/uL Basophils # (0-0.2) k/uL PT (9.0-12.0) sec INR (<1.2) APTT (22.0-30.0) sec Sodium 134 L (137-145) mmol/L Potassium 5.0 (3.5-5.1) mmol/L Chloride 103 (98-107) mmol/L Carbon Dioxide 24 (22-30) mmol/L Anion Gap 7 mmol/L BUN 19 (9-20) mg/dL Creatinine 1.19 (0.66-1.25) mg/dL Est GFR (CKD-EPI)AfAm 85 (>60 ml/min/1.73 sqM) Est GFR (CKD-EPI)NonAf 73 (>60 ml/min/1.73 sqM) Glucose 97 (74-99) mg/dL Calcium 8.6 (8.4-10.2) mg/dL Total Bilirubin 0.6 (0.2-1.3) mg/dL AST 47 (17-59) U/L ALT 49 (4-49) U/L Alkaline Phosphatase 45 (38-126) U/L Total Protein 7.3 (6.3-8.2) g/dL Albumin 4.0 (3.5-5.0) g/dL Amylase 65 (30-110) U/L Lipase 546 H (23-300) U/L Urine Color Urine Appearance (Clear) Urine pH (5.0-8.0) Ur Specific [place] (1.001-1.035) Urine Protein (Negative) Urine Glucose (UA) (Negative) Urine Ketones (Negative) Urine Blood (Negative) Urine Nitrite (Negative) Urine Bilirubin (Negative) Urine Urobilinogen (<2.0) mg/dL Ur Leukocyte Esterase (Negative) Disposition Clinical Impression: Flank pain Disposition: HOME SELF-CARE Condition: Stable Instructions (If sedation given, give patient instructions): Flank Pain (ED) Additional Instructions: Please do follow-up with your primary care physician in the next day or 2 for recheck. Please also follow-up with your urologist. Have primary care physician recheck labs from today including urine culture and pancreatic enzymes. Return for increased pain, fever, weakness, worsening or changing symptoms or other concerns. Is patient prescribed a controlled substance at d/c from ED?: No Referrals: Ryan Loving Jr, [Primary Care Provider] - 1-2 days Time of Disposition: 16:54
[2023-06-02 15:22] LABS: Appearance,Urine Clear (Clear); Bilirubin,Urine Negative (Negative); Blood,Urine Negative (Negative); Color,Urine Yellow; Glucose,Urine (UA) Negative (Negative); Ketones,Urine Trace (Negative); Leukocyte Esterase,Urine Negative (Negative); Nitrite,Urine Negative (Negative); PH, Urine 5.5 (5.0-8.0); Protein,Urine Negative (Negative); Specific Gravity,Urine 1.022 (1.001-1.035); Urobilinogen,Urine <2.0 mg/dL (<2.0)
[2023-06-02 15:50] LABS: Basophils % (A) 0 %; Eosinophils # (A) 0.3 k/uL (0-0.7); Eosinophils % (A) 3 %; HCT 44.9 % (39.0-53.0); HGB 14.5 gm/dL (13.0-17.5); Lymphocytes # (A) 1.6 k/uL (1.0-4.8); Lymphocytes % (A) 15 %; MCH 28.7 pg (25.0-35.0); MCHC 32.4 g/dL (31.0-37.0); MCV 88.8 fL (80.0-100.0); Mean Platelet Volume 9.1; Monocytes # (A) 0.8 k/uL (0-1.0); Monocytes % (A) 7 %; Neutrophils # (A) 8.3 k/uL (1.3-7.7); Neutrophils % (A) 74 %; Platelet Count 215 k/uL (150-450); RBC 5.06 m/uL (4.30-5.90); RDW 14.7 % (11.5-15.5); WBC 11.2 k/uL (3.8-10.6)
[2023-06-02 16:00] LABS: INR 0.9 (<1.2); Partial Thromboplastin Time 22.3 sec (22.0-30.0); Prothrombin Time 9.9 sec (9.0-12.0)
--- NOTE | 2023-06-02 16:19 | CT ---
EXAMINATION TYPE: CT abdomen pelvis wo con CT DLP: 1267.1 mGycm, Automated exposure control for dose reduction was used. DATE OF EXAM: 06/02/2023 4:08 PM COMPARISON: Multiple CT abdomen pelvis with most recent 10/29/2021 CLINICAL INDICATION:Male, 43 years old with history of abdominal pain; Abdominal pain. R/O kidney sto ne. TECHNIQUE: Standard CT of the abdomen and pelvis without IV or oral contrast. Lack of IV or oral co ntrast limits evaluation of solid and hollow organ viscera. Coronal and sagittal reformats were perfo rmed. FINDINGS: LOWER CHEST: Unremarkable ABDOMEN LIVER: Diffusely hypoattenuating parenchyma. GALLBLADDER AND BILE DUCTS: The gallbladder is surgically absent. PANCREAS: Unremarkable noncontrast appearance SPLEEN: Unremarkable noncontrast appearance ADRENAL GLANDS: Unremarkable noncontrast appearance. KIDNEYS AND URETERS: No evidence of hydronephrosis nonobstructive left 2 mm calculus.No ureteral calc [place]. No significant perinephric fat stranding. No perinephric fluid collections. PELVIS BLADDER: Unremarkable REPRODUCTIVE: Coarse calcifications of the prostate gland are identified. ABDOMEN & PELVIS STOMACH AND BOWEL: Stomach and duodenum are unremarkable . No focal bowel wall thickening or surround ing inflammatory changes. The appendix is surgically absent. No evidence of bowel obstruction. PERITONEUM: No evidence of pneumoperitoneum or free fluid. VASCULATURE: No evidence of aortic aneurysm. MUSCULOSKELETAL: No acute osseous abnormalities. Benign vertebral hemangioma within the T11 vertebral body. LYMPH NODES: No gross evidence for lymphadenopathy. SOFT TISSUE/ABDOMINAL WALL: Small fat filled bilateral inguinal hernias IMPRESSION: 1. No acute abdominal/pelvic process. 2. No obstructive uropathy. Nonobstructive 2 mm left renal calculus. 3. Hepatic steatosis.
[2023-06-02 16:27] LABS: ALT 49 U/L (4-49); AST 47 U/L (17-59); African American GFR (CKD) 85 (>60 ml/min/1.73 sqM); Alkaline Phosphatase 45 U/L (38-126); Amylase 65 U/L (30-110); Anion Gap 7 mmol/L; Blood Urea Nitrogen 19 mg/dL (9-20); Calcium 8.6 mg/dL (8.4-10.2); Carbon Dioxide 24 mmol/L (22-30); Chloride 103 mmol/L (98-107); Glucose 97 mg/dL (74-99); Lipase 546 U/L (23-300); Non-African American GFR(CKD) 73 (>60 ml/min/1.73 sqM); Sodium 134 mmol/L (137-145); Total Bilirubin 0.6 mg/dL (0.2-1.3); Total Protein 7.3 g/dL (6.3-8.2)
[2023-06-02] MEDS ORDERED: KETOROLAC 15 MG/ML 1 ML VIAL IVP STA (17:04)
[2023-06-02 18:28] VITALS: BP 111/73; PULSE 74; RESP 16; TEMP 98.1
== END 2023-06-02 18:27 | disposition home or self-care (01) ==
LOC: EC 13:58
DX: N20.0 Calculus of kidney (principal); I10 Essential (primary) hypertension; Z79.899 Other long term (current) drug therapy; Z88.5 Allergy status to narcotic agent; Z88.8 Allergy status to other drugs, medicaments and biological substances; Z88.6 Allergy status to analgesic agent; Z86.16 Personal history of COVID-19
CPT/HCPCS: 96374; 96375 ×2; 96361 ×2; 36415; 80053; 82150; 83690; 85025; 85610; 85730; 81003; 74176; 99285; J2765; J1170; J1885; 87086; 99284

== ENCOUNTER → 2023-08-04 | Outpatient (CLI) | payer OTHER ==
[2023-08-04 09:18] VITALS: BP 140/82; PULSE 64; RESP 16; TEMP 97.9
[2023-08-04 09:19] LABS: Basophils % (A) 1 %; Eosinophils # (A) 0.3 k/uL (0-0.7); Eosinophils % (A) 6 %; HCT 45.7 % (39.0-53.0); HGB 14.1 gm/dL (13.0-17.5); Hypochromasia Moderate; Lymphocytes # (A) 1.4 k/uL (1.0-4.8); Lymphocytes % (A) 28 %; MCV 84.1 fL (80.0-100.0); Mean Platelet Volume 9.4; Monocytes # (A) 0.4 k/uL (0-1.0); Monocytes % (A) 8 %; Neutrophils # (A) 2.5 k/uL (1.3-7.7); Neutrophils % (A) 53 %; Platelet Count 249 k/uL (150-450); RBC 5.43 m/uL (4.30-5.90); RDW 14.3 % (11.5-15.5); WBC 4.8 k/uL (3.8-10.6)
== END ==
LOC: PROCWHC3 09:01
PROVIDERS: ATTEND Internal Medicine Hematology & Oncology
DX: D75.1 Secondary polycythemia (principal)
CPT/HCPCS: 36415; 85025